=== PATIENT | female | born 1940 | race Caucasian/White ===

== ENCOUNTER → 2018-03-25 13:02 | Outpatient (REF) | payer MEDICARE, SELFPAY | LOC: LAB 13:02 | PROVIDERS: PCP Family Medicine; Visit Provider Internal Medicine | DX: L08.9 Local infection of the skin and subcutaneous tissue, unspecified (principal) | CPT/HCPCS: 87070; 87075; 87077; 87205 ==

== ENCOUNTER → 2018-04-04 11:15 | Outpatient (CLI) | payer MEDICARE, SELFPAY | PROVIDERS: PCP Family Medicine; Visit Provider Internal Medicine | DX: L97.322 Non-pressure chronic ulcer of left ankle with fat layer exposed (principal); T81.31XD Disruption of external operation (surgical) wound, not elsewhere classified, subsequent encounter | CPT/HCPCS: 11042; 97607 ==

== ENCOUNTER → 2018-04-08 09:22 | Outpatient (CLI) | payer MEDICARE, SELFPAY | PROVIDERS: PCP Family Medicine; Visit Provider Internal Medicine | DX: T81.31XA Disruption of external operation (surgical) wound, not elsewhere classified, initial encounter (principal); L97.322 Non-pressure chronic ulcer of left ankle with fat layer exposed | CPT/HCPCS: 11042; 97607 ==

== ENCOUNTER → 2018-04-10 08:48 | Outpatient (CLI) | payer MEDICARE, SELFPAY | PROVIDERS: PCP Family Medicine; Visit Provider Orthopaedic Surgery Foot and Ankle Surgery | DX: R79.89 Other specified abnormal findings of blood chemistry (principal) | CPT/HCPCS: 36415; 82306 ==

== ENCOUNTER → 2018-04-11 13:36 | Outpatient (CLI) | payer MEDICARE, SELFPAY | PROVIDERS: PCP Family Medicine; Visit Provider Internal Medicine | DX: T81.31XA Disruption of external operation (surgical) wound, not elsewhere classified, initial encounter (principal); L97.322 Non-pressure chronic ulcer of left ankle with fat layer exposed | CPT/HCPCS: 11042; 97607 ==

== ENCOUNTER → 2018-04-15 08:32 | Outpatient (CLI) | payer MEDICARE, SELFPAY | PROVIDERS: PCP Family Medicine; Visit Provider Internal Medicine | DX: L97.322 Non-pressure chronic ulcer of left ankle with fat layer exposed (principal); T81.31XD Disruption of external operation (surgical) wound, not elsewhere classified, subsequent encounter; M25.572 Pain in left ankle and joints of left foot | CPT/HCPCS: 99213 ==

== ENCOUNTER → 2018-04-15 13:45 | Outpatient (REF) | payer MEDICARE, SELFPAY | LOC: LAB 13:45 | PROVIDERS: PCP Family Medicine; Visit Provider Internal Medicine | DX: L08.9 Local infection of the skin and subcutaneous tissue, unspecified (principal) | CPT/HCPCS: 87070; 87075; 87077; 87186; 87205 ==

== ENCOUNTER → 2018-04-18 13:05 | Outpatient (CLI) | payer MEDICARE, SELFPAY | PROVIDERS: PCP Family Medicine; Visit Provider Internal Medicine | DX: T81.31XA Disruption of external operation (surgical) wound, not elsewhere classified, initial encounter (principal); L97.322 Non-pressure chronic ulcer of left ankle with fat layer exposed; M25.572 Pain in left ankle and joints of left foot; B95.2 Enterococcus as the cause of diseases classified elsewhere | CPT/HCPCS: 11042 ==

== ENCOUNTER → 2018-04-22 08:28 | Outpatient (CLI) | payer MEDICARE, SELFPAY | PROVIDERS: PCP Family Medicine; Visit Provider Internal Medicine | DX: L97.322 Non-pressure chronic ulcer of left ankle with fat layer exposed (principal); T81.31XA Disruption of external operation (surgical) wound, not elsewhere classified, initial encounter; N18.6 End stage renal disease; B95.2 Enterococcus as the cause of diseases classified elsewhere | CPT/HCPCS: 11042; 97607 ==

== ENCOUNTER → 2018-04-22 09:26 | Outpatient (CLI) | payer MEDICARE, SELFPAY ==
[2018-04-22 11:38] LABS: Cholesterol 177 mg/dL (140-199); HDL Cholesterol 77 mg/dL (40-60); LDL Cholesterol Calculated 73 mg/dL (<100); Triglycerides 135 mg/dL (35-150)
[2018-04-22 12:06] LABS: Thyroid Stimulating Hormone 1.46 uIU/mL (0.47-4.68)
== END ==
PROVIDERS: PCP Family Medicine; Visit Provider Family Medicine
DX: N18.5 Chronic kidney disease, stage 5 (principal)
CPT/HCPCS: 36415; 80061; 84443

== ENCOUNTER → 2018-04-25 15:08 | Outpatient (CLI) | payer MEDICARE, SELFPAY | PROVIDERS: PCP Family Medicine; Visit Provider Internal Medicine | DX: T81.31XA Disruption of external operation (surgical) wound, not elsewhere classified, initial encounter (principal); L97.322 Non-pressure chronic ulcer of left ankle with fat layer exposed; B95.2 Enterococcus as the cause of diseases classified elsewhere; N18.6 End stage renal disease | CPT/HCPCS: 11042; 97607 ==

== ENCOUNTER → 2018-04-29 08:39 | Outpatient (CLI) | payer MEDICARE, SELFPAY ==
--- NOTE | 2018-04-29 | OV.WND_ITS ---
Progress Note Details Patient Name: Kristine Damon Patient Number: [id number] PatientPatientDate: 04/29/2018 Clinician: Erlinda Malave Clinician Cosigner: Cyn Gong Physician / Glass Setter: Isidoro Sifuentes SUBJECTIVE Chief Complaint This information was obtained from the patient Wound to left lateral ankle. Allergies penicillin, prednisone, cephalexin, codeine, acetaminophen, hydrocodone, ketorolac HPI This information was obtained from the patient 04/29/18. Seen by Dr. Sifuentes. The patient reports improvement in the left foot pain over the past week and does not report increased drainage or other acute issues regarding the left lateral malleolus surgical wound that's being treated with negative pressure wound therapy. She's also now had 2 doses of IV vancomycin during dialysis this week that's treating the recent Enterococcus positive wound culture. 04/25/18. Seen by Dr. Sifuentes. The patient reports improvement in terms of pain associated with the chronic left lateral malleolus surgical wound since starting on IV vancomycin for the recently Enterococcus positive wound culture. She does not report adverse side effects and is receiving her antibiotics during dialysis. 04/22/18. Seen by Dr. Sifuentes. The patient reports some continued pain associated with the chronic left lateral malleolus surgical wound and she's been applying topical gentamicin to treat the recent Enterococcus positive wound culture. Her wound vac was discontinued last week also. Of note. she takes citalopram which complicates treating her wound infection with oral antibiotics and is also on dialysis for end stage renal disease and has received IV vancomycin without difficulty for her previous Enterococcus wound infections. 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 04/18/18. Seen by Dr. Sifuentes. The patient reports decreased pain associated with the chronic left lateral malleolus surgical wound over the past week since we held her wound vac. Her culture grew Enterococcus and she's not currently on antibiotics for this. Of note, her wound healing is complicated considerably by her end stage renal disease and being on dialysis and the wound is a result of deep bone debridement that was performed for chronic osteomyelitis of the malleolus. 04/15/18. Seen by Dr. Sifuentes. The patient continues to report persistent pain associated with the chronic left lateral malleolus surgical wound however she does not report increased drainage and has tolerated NPWT with the SNAP wound vac without difficulty. She' s now been off of antibiotics for the past month and underwent surgical bone debridement for chronic osteomyeylitis of the malleolus in late January. 04/11/18. Seen by Dr. Sifuentes. The patient does not report any new acute issues regarding her chronic left lateral malleolus surgical wound and she's tolerating NPWT with the SNAP wound vac without difficulty. 04/08/18. Seen by Dr. Sifuentes. The patient does not report any new acute issues regarding her chronic left lateral malleolus surgical wound and she's tolerating NPWT with the SNAP wound vac without difficulty. 04/04/18. Seen by Dr. Sifuentes. The patient continues to report pain associated with the chronic left lateral malleolus surgical wound despite the fact we discontinued NPWT at her last visit. Her wound culture grew only yeast and Diptheroids. 04/01/2018. Seen by Dr. Sifuentes. The patient continues to report pain associated with the chronic left lateral malleolus surgical wound. She does not report significant drainage from the site and has tolerated negative pressure wound therapy. She is not currently on antibiotics and has no other acute complaints today. 03/28/18. Seen by Dr. Sifuentes. The patient does not report significant pain nor drainage associated chronic left lateral malleolus surgical wound since her last visit and she's tolerating NPWT with the SNAP wound vac without difficulty. 03/25/18. Seen by Dr. Sifuentes. The patient continues to report pain throughout the midfoot and dorsum of the left foot that limits her ability to walk to only a couple of minutes at a time. She does not report any changes regarding the left lateral ankle surgical wound and is tolerating negative pressure wound therapy without difficulty. She's also not currently on oral antibiotics. 03/18/18. Seen by Dr. Sifuentes. The patient reports intermittent pain associated with the left lateral ankle however shoes are report increased drainage from the lateral malleolus surgical wound since her last visit. She is also tolerating negative pressure wound therapy without difficulty. 03/11/18. Seen by Dr Sifuentes.The patient reports some intermittent pain in the left lateral ankle when bearing weight but does not report significant drainage associated with the left lateral malleolus surgical wound since her last visit. She was changed from ciprofloxacin to doxycycline based on the recent culture growing a resistant coag negative staph organism. She does not report adverse side effects, fevers, or other acute issues today. 03/04/18. Seen by Dr. Sifuentes. The patient does not report significant pain nor drainage associated chronic left lateral malleolus surgical wound since her last visit. She continues on ciprofloxacin for chronic osteomyelitis also without reported adverse side effects. 02/25/18. Seen by Dr. Sifuentes. 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 She saw Dr. John last week and will start to use a bone stimulator to help heal the pathologic fracture. She does not report significant drainage associated with the left lateral malleolus surgical wound. 02/18/18. Seen by Dr. Sifuentes. The patient reports ongoing, but decreasing, pain associated with the left lateral malleolus surgical wound and she continues on ciprofloxacin and Flagy for chronic osteomyelitis without reporting adverse side effects. She'll see her surgeon, Dr. John, this . 02/14/18. Seen by Dr. Sifuentes. The patient reports decreased pain associated with the left lateral malleolus surgical wound and staff report only a moderate amount of drainage on the ROMEL wound vac dressing. She continues on cipro and Flagyl for chronic osteomyelitis and does not report adverse side effects or feeling unwell in general. 02/11/18. Seen by Dr. Sifuentes. The patient continues to report some persistent pain associated with the chronic left lateral malleolus surgical wound since her last visit. She does not report increased drainage however and is scheduled to see Dr. John, her orthopedic surgeon, next Saturday. She continues on ciprofloxacin and Flagyl as well and her surgery was a deep bone debridement to address the chronic osteomyelitis of the malleolus. 02/07/18. Seen by Dr. Sifuentes. 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 John. She reports some persistent discomfort at the wound site and is now on ciprofloxacin and Flagyl. Culture results of the execised bone are not yet available and the patient does not report any adverse side effects from the antibiotics, fevers, nor feeling unwell. 11/27/17. Seen by Dr. Sifuentes. The patient does not report pain associated with the chronic left lateral malleolus ulcer however she does describe diffuse pain throughout the lateral aspect of the foot and heel. She states this has been present for 6 weeks however has not raised the issue at our clinic until last week. She was seen by her primary care provider who subsequently ordered an MRI that revealed a nondisplaced fracture of the calcaneus. The MRI did mention also that the chronic osteomyelitis of the lateral malleolus appears to have improved from the previous imaging. 11/06/17. Seen by Dr. Sifuentes. The patient does not report significant pain or drainage associated with the chronic left lateral malleolar nonpressure ulcers since her last visit. She stop using a dressing due to pain and feels this has resolved in the interim. She's also asked that I look at a finger on her right hand that's been slow to heal since her dog scratched her a few weeks ago. She does not report pain at the site but states it's been draining a bit. 10/23/17. Seen by Dr. Sifuentes. The patient reports some persistent and modest pain associated with chronic left lateral malleolar nonpressure ulcer since her last visit. Does not report increased drainage and has been applying topical gentamicin to treat the recurrent cognitive staph wound infection. 10/02/17. The patient reports some intermittent pain associated with chronic left lateral malleolar nonpressure ulcer since her last visit however does not report increased drainage. 09/10/17. Seen by Shon Barlow PA-C. The patient reports no increase in drainage from her left lateral malleolar ulcer. She continues to abstain from smoking. 08/20/17. Seen by Dr. Sifuentes. The patient does not report significant pain or drainage associated with the chronic left lateral malleolar nonpressure ulcers since her last visit. She applying OTC topical antibiotic as prescribed to treat a recurrent wound infection noted at her last visit. 08/06/17. Seen by Dr. Sifuentes. The patient does not report significant pain or drainage associated with the chronic left lateral malleolar nonpressure ulcers since her last visit. 07/16/17. Seen by Dr. Sifuentes. The patient does not report pain or significant drainage associated with the chronic left lateral malleolar nonpressure ulcers since her last visit. 07/09/17. Seen by Dr. Sifuentes. The patient reports some intermittent pain associated with chronic left lateral malleolar nonpressure ulcer since her last visit however does not report increased drainage. 06/27/17. Seen by Dr. Sifuentes. The patient does not report pain or significant drainage associated with the chronic left lateral malleolar ulcer since her last visit. She feels her previously reported symptoms have improved since starting on levofloxacin for the polymicrobial wound culture following her last visit. 06/20/17. Seen by Dr. Sifuentes. The patient reports some burning associated with the left lateral chronic malleoli are not pressure ulcer. Her wound culture grew stenotrophomonas , enterococcus, and a coag-negative staph. She started on levofloxacin for this to be taken around her dialysis schedule. She does not report fevers or feeling unwell. 06/13/17. Seen by Shon Barlow PA-C. The patient reports that the steri-strips that were used to reduce wound tension were painful and she removed them. Her ulcer at that time grew E.coli which she has finished her antibiotic treatment for. 05/30/17. Seen by Dr. Sifuentes. The patient reports increased pain and drainage associated with the chronic left lateral malleolar ulcer over the past few days. She continues on dialysis and is scheduled to have cataract surgery later this week. She does not report fevers or feeling unwell and is not currently on antibiotics. 04/18/17. Seen by Dr. Sifuentes. The patient does not report pain or significant drainage the chronic left lateral malleolar ulcer over the past week. 03/28/17. Seen by Dr. Sifuentes. The patient does not report significant drainage or pain associated with the chronic left lateral malleolar non-pressure ulcer since her last visit. 03/07/17. Seen by Dr. Sifuentes. The patient does not report significant drainage or pain associated with the chronic left lateral malleolar non-pressure ulcer since her last visit. 02/14/17. Seen by Dr. Sifuentes. The patient feels the drainage from the chronic left lateral malleolar non-pressure ulcer noted at the last visit has decreased. Her wound culture grew Enterococcus and Enterobacter species however she did not tolerate her ciprofloxacin due to GI upset and stopped taking it after the few couple of doses. 02/05/17. Seen by Dr. Sifuentes. The patient does not report increased pain or drainage associated with chronic left lateral malleolar nonpressure ulcers since her last visit. 01/10/17. Seen by Dr. Sifuentes. The patient reports no increase in pain or significant drainage associated with the chronic left lateral malleolar nonpressure ulcer since her last visit. 12/20/16. Seen by Dr. Sifuentes. The patient does not report drainage associated with the chronic left lateral malleolus ulcer since her last visit. 11/29/16. Seen by Dr. Sifuentes. The patient does not report significant drainage associated with the chronic left lateral malleolus ulcer since her last visit. 11/08/16. Seen by Dr. Sifuentes. The patient does not report pain or significant drainage associated with the chronic left lateral malleolus ulcer since her last visit. 10/18/16 Seen by Shon Barlow PA-C. The patient does not report any change in pain or drainage from her chronic left lateral malleolar ulcer since her last evaluation. 10/04/16. Seen by Dr. Sifuentes. The patient does not report pain or significant drainage associated with the chronic left lateral malleolus ulcer. She continues to apply gentamicin cream at each dressing change due to chronic and recurring infections at the ulcer site. 09/27/16. Seen by Dr. Sifuentes.The patient does not report significant drainage or pain associated with chronic left lateral malleolus on pressure ulcer since her last visit. She continues to apply topical gentamicin ointment for the chronic wound infection. 09/13/16. Seen by Dr. Sifuentes. The patient reports scant drainage and no pain associated with the chronic left lateral malleolar non-pressure ulcer and she's applying topical gentamicin daily to treat the recent polymicrobial wound infection as recommended. 09/04/16 Seen by Shon Barlow PA-C. The patient reports minimal drainage and she is attempting to offload the ulcer area when she sleeps using a Christmas-saver ankle protector. 08/30/16. Seen by Dr. Sifuentes. The patient reports increased pain and drainage associated with the chronic left lateral malleolr non-pressure ulcer over the past week but she does not report fevers or feeling unwell. Her wound culture from the last visit grew Enterobacter, E. coli, and a coag negative Staph and she started taking Bactrim and applying topical gentamicin yesterday. She's on a 1/2 dose of Bactrim due to her end stage renal disease. 08/23/16. Seen by Dr. Sifuentes. The patient reports some increased drainage on her dressing covering the chronic left lateral malleolar non-pressure ulcer. She does no report pain however nor fevers or feeling unwell. 08/09/16. Seen by Dr. Sifuentes. The patient does not report drainage or pain associated with the chronic left lateral malleolar ulcer. 07/26/16. Seen by Dr. Sifuentes. The patient does not report drainage or pain associated with the chronic left lateral malleolar ulcer since her last visit. 07/11/16. Seen by Dr. Sifuentes. The patient does not report drainage or pain associated with the chronic left lateral malleolar ulcer since her visit last week. 06/21/16 Seen by Shon Barlow PA-C. The patient reports no change in drainage from her left lateral malleolus ulcer. 06/14/16. Seen by Dr. Sifuentes. The patient reportedly minimal drainage associated with the chronic left lateral malleolus ulcer since her last visit. Her arterial Doppler of the left leg was remarkable. 06/07/16. Seen by Dr. Sifuentes. The patient does not report pain or drainage associated with the chronic left lateral malleolar ulcer over the past week. 05/31/16. Seen by Dr. Sifuentes. The patient does not report pain or drainage associated with chronic left lateral malleolus nonpressure ulcer over the past week. Of note, her wound culture from the last visit grew a resistant coag negative Staph. She's not currently taking antibiotics. 05/24/[address] Sifuentes. The patient does not report increased pain or drainage associated with the chronic left lateral malleolar non-pressure ulcer over the past week. 05/17/[address] Sifuentes. The patient does not report pain associated with the chronic left lateral malleolar non-pressure ulcer over the past week and there's only a scant amount of drainage on her dressing today. 05/10/[address] Sifuentes. The patient does not report pain or drainage associated with the chronic left lateral malleolar ulcer or associated underlying malleolar chronic osteomyelitis over the past week. Of note, she had another Epifix skin substitute placed last week. 05/03/[address] Sifuentes. The patient does not report pain or drainage associated with the left lateral malleolar non-pressure ulcer over the past week and she's tolerating HBOT, which is treating associated underlying chronic osteomyelitis, without reporting any issues. 04/26/16 Seen by Shon Barlow PA-C. The patient reports no noted change in her chronic left lateral malleolar ulcer since her last evaluation. 04/19/[address] Sifuentes. The patient does not report pain or drainage associated with the chronic left lateral malleolar non-pressure ulcer nor underlying chronic osteomyelitis. She continues with HBOT but has completed an 8 week course of IV vancomycin. 04/12/[address] Sifuentes. The patient does not report drainage or pain associated with her chronic left lateral malleolar ulcer and underlying chronic osteomyelitis. She' s received 3 placements of Epifix recently and continues with HBOT in addition to an extended course of IV vancomycin. Her wound culture from 04/05/16 showed no organisms and had no growth. 04/05/[address] Sifuentes. The patient does not report pain or drainage from her chronic left lateral malleolar non-pressure ulcer and she continues on IV vancomycin for chronic osteomyelitis of the underlying malleolus. 03/29/[address] Sifuentes. The patient does not report pain or drainage associated with her chronic left lateral malleolar non-pressure ulcer and she continues on IV vancomycin and hyperbaric therapy for underlying chronic osteomyelitis of the malleolus. 03/22/[address] Sifuentes. The patient does not report pain or drainage associated with the chronic left lateral malleolar non-pressure ulcer. 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 She also states she's no longer smoking. 03/06/16 Seen by Shon Barlow PA-C. The patient is changing her dressing daily, as instructed but now reports decreased drainage from her ulcer. 03/01/[address] Sifuentes. The patient does not report pain or significant drainage associated with her chronic left lateral malleolar ulcer and she continues on IV vancomycin and hyperbaric oxygen therapy for underlying chronic osteomyelitis of the lateral malleolus. 02/14/16 Seen by Shon Barlow PA-C. The patient feels her left malleolar ulcer with underlying chronic osteomyelitis may be larger and has been draining more since her last evaluation. She continues on doxycycline and her ulcer culture grew a staph Spp. and E Faecalis both of which were highly resistant. She reports that she is only smoking a few cigarettes per day. Her dialysis continues at 2 times weekly. Her COPD is stable on current medications with no recent exacerbations. 02/08/[address] Sifuentes. The patient does not report pain associated with the chronic left lateral malleolar non-pressure ulcer however the staff report brown drainage on her dressing today. She continues on doxycycline for a recent polymicrobial resistant Staph culture and her recent bone scan on 01/26/16 show's persistent left lateral malleolar osteomyelitis while reporting interval improvement from her previous scan on 09/29/15. She does not report fevers or feeling unwell and she also reports that she's significantly reduced her smoking over the past week. 01/26/[address] Sifuentes. The patient does not report pain associated with the chronic left lateral malleolar non-pressure ulcer nor does she report any problems with the wound vac. She continues on doxycycline without reporting adverse side effects and her bone scan shows persistence of osteomyelitis beneath the ulcer with interval improvement from that of 09/29/16. 01/19/[address] Sifuentes. The patient does not report pain associated with the chronic left lateral malleolar non-pressure ulcer nor any problems with the wound vac. She continues on doxycycline also for a resistant coag neg Staph culture and does not report adverse side effects. 01/12/[address] Sifuentes. The patient does not report pain or significant drainage associated with the chronic left lateral malleolar ulcer. She also is now on doxycycline for a resistant coag neg Staph culture from 12/28/15 and does not report adverse effects. 01/04/[address] Sifuentes. The patient reports some increased pain just proximal to the chronic left lateral malleolar non-pressure ulcer. She's currently using only topical gentamicin to treat an intermediately resistant coag negative Staph culture from the ulcer. 12/28/[address] Sifuentes. The patient does not report drainage and reports only minimal pain associated with the chronic left lateral malleolar ulcer. Her wound culture grew only resistant Staph epi. 12/21/[address] Sifuentes. The patient does not report pain or drainage associated with the chronic left lateral malleolar ulcer and she's continues off of antibiotics. 12/07/2015 Seen by Shon Barlow PA-C. The patient's moxifloxacin has now finished and she does not report any change in left ankle pain or drainage. 11/30/2015 Seen by Shon Barlow PA-C. The patient's moxifloxacin prescription continues for 1 more week. She is currently not undergoing adjunctive hyperbaric oxygen treatments. She reports no change in ulcer pain. 11/25/[address] Sifuentes. The patient does not report any new issues regarding her chronic left lateral malleolar non-pressure ulcer however the staff report some moderate maceration. 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 11/15/15 Seen by Shon Barlow PA-C. The patient will complete her last Vancomycin infusion tomorrow and will then discontinue this antibiotic and discontinue 3x weekly dialysis and resume twice weekly dialysis. Her ulcer, overlying chronic osteomyelitis has been draining minimally and has not been reportedly painful since her last evaluation. She is now weaned off of citalopram (which had interactions with Moxifloxacin, which we originally wanted to prescribe) and she reports no depression symptoms. 11/08/15 Seen by Shon Barlow PA-C. The patient does not report increased pain or drainage from her ulcer with underlying osteomyelitis. She continues on Vancomycin. 11/03/[address] Sifuentes. The patient does not report pain and only scant drainage from the chronic left lateral malleolar ulcer and underlying chronic osteomyelitis. She's on day 24 of IV vancomycin for the Enterococcus positive wound culture and HBOT for chronic osteomyelitis. 10/27/[address] Sifuentes. The patient reports minimal discomfort and scant drainage from the left lateral malleolar ulcer and underlying chronic osteomyelitis. She continues on IV vancomycin for this problem as well as HBOT without reporting problems. 10/19/15 Seen by Shon Barlow PA-C. The patient reports a stable appearance of her ulcer. She is going to begin 3x weekly dialysis due to the administration of Vancomycin. When she completes her Vancomycin course she will resume twice weekly dialysis. 10/12/[address] Sifuentes. The patient states she's had 5 episodes of diarrhea this morning and complains of some mild left sided abdominal pain. She's been started on IV vancomycin for the left lateral malleolar ulcer cultured for Enterococcus and is under the care of her electro mechanic, Dr. Lorenzana, regarding dosing around her dialysis. She does not report drainage nor significant discomfort associated with ulcer nor underlying chronic osteomyelitis of the malleolus and continues with HBOT as adjuvant therapy without reporting problems. 10/06/[address] Sifuentes. The patient continues to report some discomfort regarding her left lateral malleolar ulcer and underlying chronic osteomyelitis. She's seen Dr. Silva, her PCP, whose started a taper of her Celexa over the next 6 weeks due to a potentially serious interaction with fluorquinolone antibiotics which could eventually be useful in treating the Enterococcus faecalis positive wound culture from 09/28/15. She does not report fever or other acute issues currently and has been off of antibiotics for the past week due to the limited options based on sensitivities. She's continued HBOT over this period while we' ve attempted to find an appropriate antibiotic solution. Of note, her bone scan from 09/29/15 confirms persistence of chronic osteomyelitis also. 09/14/15 Seen by Shon Barlow PA-C. The patient reports no difficulty with her doxycycline or HBOT treatments. Her ankle ulcer continues to drain and she has not observed much change. 09/07/[address] Sifuentes. The patient does not report significant pain or drainage associated with her left lateral malleolar ulcer and she continues on doxycycline for associated chronic osteomyelitis without reporting adverse side effects. She's also tolerating HBOT without reporting any problems. 08/24/[address] Sifuentes. The patient reports increased pain and redness in the periwound area of the left lateral malleolar ulcer that overlies the site of chronic osteomyelitis. She does not report fever, chills, sweats, or increased drainage. Her wound culture at the last visit was unremarkable despite being off of antibiotics. She's been approved for HBOT and currently does not report acute URI symptoms but states she has some chronic sinus congestion. Of note, her CXR was consistent with COPD. 08/17/[address] Sifuentes. The patient states her left lateral malleous is more tender than last week with some radiation of pain to the mid foot. She does not report increased 08/04/[address] Sifuentes. The patient attend the ER following our last visit and was sent to [facility] due to acute on chronic renal failure. She'd apparently become dehydrated due to nausea and vomiting and was dx with a small bowel obstruction. Of note, I'd contacted her to discontinue Bactrim, which she'd been on for about a month for left lateral malleolar osteomyelitis, due to her Cr increasing. This has since returned to it's baseline and she's currently not on antibiotics. She does not report increased pain, swelling or drainage associated with the overlying ulcer. She's also to complete the 2nd phase of her bone scan checking for persistence of osteomyelitis later today. 07/28/[address] Sifuentes. The patient does not report drainage or pain associated with the left lateral malleolar ulcer. She continues on an extended course of Bactrim for possible osteomyelitis which is concerning based on her history of chronic kidney disease requiring dialysis. She notes she still produces adequate urine but has not had her renal function checked since 07/05/15 when her Cr was 2.7. 07/20/[address] Sifuentes. The patient does not report any new issues such as pain or increased drainage from the left lateral malleolar ulcer. She continues on Bactrim for possible chronic osteomyelitis of the lateral malleolus. 07/13/[address] Sifuentes. The patient's new to our clinic and has been referred by Dr. Silva for a non-healing surgical wound following excision of a skin cancer ( type unconfirmed) at the left lateral malleolus. This was reportedly performed about 2 months ago and she's been on an extended course of Bactrim for the past month with some resolution in drainage and surrounding erythema. She has an MRI and bone scan of the site from the end of April that both raise suspicion for osteomyelities however. Otherwise her medical history is complicated by chronic renal failure requiring dialysis and a long history of smoking. She does not have a history of diabetes nor does she report rest pain, claudication, fever, sweats, or pain at the ulcer site. Past Medical History This information was obtained from the patient Patient has a medical history of: Depression Carpal tunnel Chronic renal Stage V (Cr 2.7 on 07/05/15; dialysis M, F) Unilateral nephrectomy Allergic rhinitis Hypertension Insomnia Lumbago Osteoporosis Peptic Ulcer Small bowel obstruction (recurrent) Chronic osteomyelitis (left lateral malleolus; dx on MRI and bone scan April 2015 ; reconfirmed on repeat bone scan 07/28/15; persistent but improved on 01/26/16 bone scan) COPD Chronic ulcer (left lateral malleolus) Complaints and Symptoms This information was obtained from the patient Patient complains of: General Notes: I have reviewed and concur with the Review of Systems and Past Family Social History documents completed by the clinician, I have reviewed and concur with the Wound Assessment document completed by the clinician Ear/Nose/Mouth/Throat: Hearing Loss / Aid Integumentary (Hair/Skin/Nails): Open Sore Prior Wound History: Drainage, Erythema, Pain Patient denies complaints or symptoms related to: Cardiovascular (Central/Peripheral): Intermittent Claudication, Lower extremity (leg) resting pain, Lower extremity (leg) swelling Constitutional Symptoms (General Health): Chills, Fever Gastrointestinal (GI): Nausea / Vomiting, Stomach/abdominal pain Hematologic/Lymphatic: Bleeding / Clotting Disorders, Bleeding Tendency Musculoskeletal: Deformities, Joint Swelling Neurological: Abnormal Gait, Loss of Protective Sensation Prior Wound History: Bleeding, Malodor Psychiatric: Memory Loss Respiratory: Oxygen Use, Shortness of Breath OBJECTIVE Constitutional Vital signs reviewed and noted. Well developed. Alert. Clean appearing.. Height/ Length: 60 in (152.4 cm), Weight: 97.7 lbs (44.41 kgs), BMI: 19.1, Temperature: 98.3 ?F ( 36.83 ?C), Pulse: 58 bpm, Respiratory Rate: 16 breaths/min, Blood Pressure: 124/63 mmHg, Pulse Oximetry: 98 %. Ears, Nose, Mouth, and Throat: Mild hearing deficit. Respiratory: No respiratory distress. Even respirations and without use of accessory muscles.. Cardiovascular: Affected extremity exhibits no peripheral edema or cyanosis, is warm, and is well perfused. Capillary refill is less than 2 seconds. Integumentary (Hair, Skin) No periwound erythema, warmth, or significant drainage. No periwound rashes appreciated or noted otherwise.. Refer to appropriate clinician wound documentation for this visit; left lateral malleolus wound extends to deep subcut with base partially covered with pink granulation, remainder fibrin and slough; smaller than on previous review. Wound #2 Left, Lateral Ankle is an acute Full Thickness Surgical Wound and has received a status of Not Healed. Subsequent wound encounter measurements are 0.4cm length x 0.2cm width x 0.2cm depth, with an area of 0.08 sq cm and a volume of 0.016 cubic cm. No tunneling has been noted. No sinus tract has been noted. No undermining has been noted. There is a moderate amount of serous drainage noted which has no odor. The patient reports a wound pain of level 5/10. The wound margin is attached. Wound bed has Yes epithelialization, No eschar, Yes slough, Yes pink, firm granulation. The periwound skin moisture is normal. The periwound skin color is normal. The periwound skin exhibited: Edema. The periwound skin did not exhibit: Brawny Induration, Excoriation, Induration, Callus, Crepitus, Fluctuance, Friable, Rash. The temperature of the periwound skin is WNL. Periwound skin does not exhibit signs or symptoms of infection. Local Pulse is Palpable. Neurological: Cranial nerves grossly intact with symmetric function normal by informal observation.. ASSESSMENT Active Problems ICD-10 (Encounter Diagnosis) L97.322 - Non-pressure chronic ulcer of left ankle with fat layer exposed (Encounter Diagnosis) T81.31XD - Disruption of external operation (surgical) wound, not elsewhere classified, subsequent encounter (Encounter Diagnosis) B95.2 - Enterococcus as the cause of diseases classified elsewhere (Encounter Diagnosis) N18.6 - End stage renal disease PROCEDURES Wound #2 Wound #2 (Surgical Wound) is located on the left, lateral ankle. A skin/ subcutaneous tissue level surgical debridement with a total area debrided of 0.08 sq cm was performed by Isidoro Sifuentes MD. Subcutaneous was removed along with devitalized tissue: slough. The following instrument(s) were used: curette. No anesthetic was required due to loss of sensation. A time out was conducted prior to the start of the procedure. A minimal amount of bleeding was controlled with pressure. The procedure was tolerated well with a pain level of 0 throughout and a pain level of 0 following the procedure. Post Debridement Measurements: 0.4cm length x 0.2cm width x 0.3cm depth; with an area of 0.08 sq cm and a volume of 0.024 cubic cm; Wound #2 (Surgical Wound) is located on the left, lateral ankle. A Disposable Wound Vac Application < 50 Sq Cm procedure was performed for the lower left extremity by Isidoro Sifuentes MD. A time out was conducted prior to the start of the procedure. The procedure was tolerated well. General Notes: SNAP 125mmHg applied. PLAN Wound Orders: Wound #2 Left, Lateral Ankle Anesthetic Topical Xylocaine to wound bed. - In clinic only. Cleanser Cleanse Wound: - Normal saline and gauze. May Shower. - Cover with cast protector. Dressings Change Dressing: - At next visit. SNAP Dressing - SNAP 125 Please observe to make sure the snap is not in the red. Additional Orders: Follow-Up Appointments Return Appointment: - - Saturday for SNAP. Other information: If you develop fever, chills, increased pain, drainage, redness or swelling please call our office. If after hours, respond to the ER. Should you experience any significant changes in your wound(s) or have any questions regarding your home care instructions please contact the wound center @ [phone]. If after hours, contact your primary care physician or go to the hospital emergency room. Scribing Attestation I attest, as the nurse, that I scribed these orders for the physician. I've reviewed the clinician's documentation and agree with the evaluation and plan as written. In addition, the patient's ulcer demonstrates evidence of non-viable devitalized tissue which will continue to benefit from sharp debridement to help promote granulation and expedite healing. Negative pressure wound therapy will be utilized to facilitate granulation and removal of exudate and infectious material with the goal of expediting wound healing. Also, we'll continue treating with IV vancomycin for a total of 2 weeks then consider holding antibiotics and monitoring for recurrence of infection. Electronic Signature(s) Signed By: Date: Isidoro Sifuentes MD 04/29/2018 14:23:23 Entered By: Isidoro Sifuentes on 04/29/2018 14:22:17
== END ==
PROVIDERS: PCP Family Medicine; Visit Provider Internal Medicine
DX: T81.31XA Disruption of external operation (surgical) wound, not elsewhere classified, initial encounter (principal); L97.322 Non-pressure chronic ulcer of left ankle with fat layer exposed; B95.2 Enterococcus as the cause of diseases classified elsewhere; N18.6 End stage renal disease
CPT/HCPCS: 11042; 97607

== ENCOUNTER → 2018-05-02 11:26 | Outpatient (CLI) | payer MEDICARE, SELFPAY ==
--- NOTE | 2018-05-02 | OV.WND_ITS ---
Progress Note Details Patient Name: Kristine Damon Patient Number: [id number] PatientPatientDate: 05/02/2018 Clinician: Erlinda Malave Clinician Cosigner: Morelia Ibarra Physician / Assembly Line Machine Operator: Isidoro Sifuentes SUBJECTIVE Chief Complaint This information was obtained from the patient Wound to left lateral ankle. Allergies penicillin, prednisone, cephalexin, codeine, acetaminophen, hydrocodone, ketorolac HPI This information was obtained from the patient 05/02/18. Seen by Dr. Sifuentes. The patient reports improvement in the left foot pain and does not report increased drainage or other acute issues regarding the left lateral malleolus surgical wound that's being treated with negative pressure wound therapy. She's also continues on IV vancomycin during dialysis that's treating the recent Enterococcus positive wound culture. 04/29/18. Seen by Dr. Sifuentes. The patient reports improvement in the left foot pain over the past week and does not report increased drainage or other acute issues regarding the left lateral malleolus surgical wound that's being treated with negative pressure wound therapy. She's also now had 2 doses of IV vancomycin during dialysis this week that's treating the recent Enterococcus positive wound culture. 04/25/18. Seen by Dr. Sifuentes. The patient reports improvement in terms of pain associated with the chronic left lateral malleolus surgical wound since starting on IV vancomycin for the recently Enterococcus positive wound culture. She does not report adverse side effects and is receiving her antibiotics during dialysis. 04/22/18. Seen by Dr. Sifuentes. The patient reports some continued pain associated with the chronic left lateral malleolus surgical wound and she's been applying topical gentamicin to treat the recent Enterococcus positive wound culture. Her wound vac was discontinued last week also. Of note. she takes citalopram which complicates treating her wound infection with oral antibiotics and is also on dialysis for end stage renal disease and has received IV vancomycin without difficulty for her previous Enterococcus wound infections. 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 04/18/18. Seen by Dr. Sifuentes. The patient reports decreased pain associated with the chronic left lateral malleolus surgical wound over the past week since we held her wound vac. Her culture grew Enterococcus and she's not currently on antibiotics for this. Of note, her wound healing is complicated considerably by her end stage renal disease and being on dialysis and the wound is a result of deep bone debridement that was performed for chronic osteomyelitis of the malleolus. 04/15/18. Seen by Dr. Sifuentes. The patient continues to report persistent pain associated with the chronic left lateral malleolus surgical wound however she does not report increased drainage and has tolerated NPWT with the SNAP wound vac without difficulty. She' s now been off of antibiotics for the past month and underwent surgical bone debridement for chronic osteomyeylitis of the malleolus in late January. 04/11/18. Seen by Dr. Sifuentes. The patient does not report any new acute issues regarding her chronic left lateral malleolus surgical wound and she's tolerating NPWT with the SNAP wound vac without difficulty. 04/08/18. Seen by Dr. Sifuentes. The patient does not report any new acute issues regarding her chronic left lateral malleolus surgical wound and she's tolerating NPWT with the SNAP wound vac without difficulty. 04/04/18. Seen by Dr. Sifuentes. The patient continues to report pain associated with the chronic left lateral malleolus surgical wound despite the fact we discontinued NPWT at her last visit. Her wound culture grew only yeast and Diptheroids. 04/01/2018. Seen by Dr. Sifuentes. The patient continues to report pain associated with the chronic left lateral malleolus surgical wound. She does not report significant drainage from the site and has tolerated negative pressure wound therapy. She is not currently on antibiotics and has no other acute complaints today. 03/28/18. Seen by Dr. Sifuentes. The patient does not report significant pain nor drainage associated chronic left lateral malleolus surgical wound since her last visit and she's tolerating NPWT with the SNAP wound vac without difficulty. 03/25/18. Seen by Dr. Sifuentes. The patient continues to report pain throughout the midfoot and dorsum of the left foot that limits her ability to walk to only a couple of minutes at a time. She does not report any changes regarding the left lateral ankle surgical wound and is tolerating negative pressure wound therapy without difficulty. She's also not currently on oral antibiotics. 03/18/18. Seen by Dr. Sifuentes. The patient reports intermittent pain associated with the left lateral ankle however shoes are report increased drainage from the lateral malleolus surgical wound since her last visit. She is also tolerating negative pressure wound therapy without difficulty. 03/11/18. Seen by Dr Sifuentes.The patient reports some intermittent pain in the left lateral ankle when bearing weight but does not report significant drainage associated with the left lateral malleolus surgical wound since her last visit. She was changed from ciprofloxacin to doxycycline based on the recent culture growing a resistant coag negative staph organism. She does not report adverse side effects, fevers, or other acute issues today. 03/04/18. Seen by Dr. Sifuentes. The patient does not report significant pain nor drainage associated chronic left lateral malleolus surgical wound since her last visit. She continues on ciprofloxacin for chronic osteomyelitis also without reported adverse side effects. 02/25/18. Seen by Dr. Sifuentes. 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 She saw Dr. John last week and will start to use a bone stimulator to help heal the pathologic fracture. She does not report significant drainage associated with the left lateral malleolus surgical wound. 02/18/18. Seen by Dr. Sifuentes. The patient reports ongoing, but decreasing, pain associated with the left lateral malleolus surgical wound and she continues on ciprofloxacin and Flagy for chronic osteomyelitis without reporting adverse side effects. She'll see her surgeon, Dr. John, this . 02/14/18. Seen by Dr. Sifuentes. The patient reports decreased pain associated with the left lateral malleolus surgical wound and staff report only a moderate amount of drainage on the ROMEL wound vac dressing. She continues on cipro and Flagyl for chronic osteomyelitis and does not report adverse side effects or feeling unwell in general. 02/11/18. Seen by Dr. Sifuentes. The patient continues to report some persistent pain associated with the chronic left lateral malleolus surgical wound since her last visit. She does not report increased drainage however and is scheduled to see Dr. John, her orthopedic surgeon, next Saturday. She continues on ciprofloxacin and Flagyl as well and her surgery was a deep bone debridement to address the chronic osteomyelitis of the malleolus. 02/07/18. Seen by Dr. Sifuentes. 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 John. She reports some persistent discomfort at the wound site and is now on ciprofloxacin and Flagyl. Culture results of the execised bone are not yet available and the patient does not report any adverse side effects from the antibiotics, fevers, nor feeling unwell. 11/27/17. Seen by Dr. Sifuentes. The patient does not report pain associated with the chronic left lateral malleolus ulcer however she does describe diffuse pain throughout the lateral aspect of the foot and heel. She states this has been present for 6 weeks however has not raised the issue at our clinic until last week. She was seen by her primary care provider who subsequently ordered an MRI that revealed a nondisplaced fracture of the calcaneus. The MRI did mention also that the chronic osteomyelitis of the lateral malleolus appears to have improved from the previous imaging. 11/06/17. Seen by Dr. Sifuentes. The patient does not report significant pain or drainage associated with the chronic left lateral malleolar nonpressure ulcers since her last visit. She stop using a dressing due to pain and feels this has resolved in the interim. She's also asked that I look at a finger on her right hand that's been slow to heal since her dog scratched her a few weeks ago. She does not report pain at the site but states it's been draining a bit. 10/23/17. Seen by Dr. Sifuentes. The patient reports some persistent and modest pain associated with chronic left lateral malleolar nonpressure ulcer since her last visit. Does not report increased drainage and has been applying topical gentamicin to treat the recurrent cognitive staph wound infection. 10/02/17. The patient reports some intermittent pain associated with chronic left lateral malleolar nonpressure ulcer since her last visit however does not report increased drainage. 09/10/17. Seen by Shon Barlow PA-C. The patient reports no increase in drainage from her left lateral malleolar ulcer. She continues to abstain from smoking. 08/20/17. Seen by Dr. Sifuentes. The patient does not report significant pain or drainage associated with the chronic left lateral malleolar nonpressure ulcers since her last visit. She applying OTC topical antibiotic as prescribed to treat a recurrent wound infection noted at her last visit. 08/06/17. Seen by Dr. Sifuentes. The patient does not report significant pain or drainage associated with the chronic left lateral malleolar nonpressure ulcers since her last visit. 07/16/17. Seen by Dr. Sifuentes. The patient does not report pain or significant drainage associated with the chronic left lateral malleolar nonpressure ulcers since her last visit. 07/09/17. Seen by Dr. Sifuentes. The patient reports some intermittent pain associated with chronic left lateral malleolar nonpressure ulcer since her last visit however does not report increased drainage. 06/27/17. Seen by Dr. Sifuentes. The patient does not report pain or significant drainage associated with the chronic left lateral malleolar ulcer since her last visit. She feels her previously reported symptoms have improved since starting on levofloxacin for the polymicrobial wound culture following her last visit. 06/20/17. Seen by Dr. Sifuentes. The patient reports some burning associated with the left lateral chronic malleoli are not pressure ulcer. Her wound culture grew stenotrophomonas , enterococcus, and a coag-negative staph. She started on levofloxacin for this to be taken around her dialysis schedule. She does not report fevers or feeling unwell. 06/13/17. Seen by Shon Barlow PA-C. The patient reports that the steri-strips that were used to reduce wound tension were painful and she removed them. Her ulcer at that time grew E.coli which she has finished her antibiotic treatment for. 05/30/17. Seen by Dr. Sifuentes. The patient reports increased pain and drainage associated with the chronic left lateral malleolar ulcer over the past few days. She continues on dialysis and is scheduled to have cataract surgery later this week. She does not report fevers or feeling unwell and is not currently on antibiotics. 04/18/17. Seen by Dr. Sifuentes. The patient does not report pain or significant drainage the chronic left lateral malleolar ulcer over the past week. 03/28/17. Seen by Dr. Sifuentes. The patient does not report significant drainage or pain associated with the chronic left lateral malleolar non-pressure ulcer since her last visit. 03/07/17. Seen by Dr. Sifuentes. The patient does not report significant drainage or pain associated with the chronic left lateral malleolar non-pressure ulcer since her last visit. 02/14/17. Seen by Dr. Sifuentes. The patient feels the drainage from the chronic left lateral malleolar non-pressure ulcer noted at the last visit has decreased. Her wound culture grew Enterococcus and Enterobacter species however she did not tolerate her ciprofloxacin due to GI upset and stopped taking it after the few couple of doses. 02/05/17. Seen by Dr. Sifuentes. The patient does not report increased pain or drainage associated with chronic left lateral malleolar nonpressure ulcers since her last visit. 01/10/17. Seen by Dr. Sifuentes. The patient reports no increase in pain or significant drainage associated with the chronic left lateral malleolar nonpressure ulcer since her last visit. 12/20/16. Seen by Dr. Sifuentes. The patient does not report drainage associated with the chronic left lateral malleolus ulcer since her last visit. 11/29/16. Seen by Dr. Sifuentes. The patient does not report significant drainage associated with the chronic left lateral malleolus ulcer since her last visit. 11/08/16. Seen by Dr. Sifuentes. The patient does not report pain or significant drainage associated with the chronic left lateral malleolus ulcer since her last visit. 10/18/16 Seen by Shon Barlow PA-C. The patient does not report any change in pain or drainage from her chronic left lateral malleolar ulcer since her last evaluation. 10/04/16. Seen by Dr. Sifuentes. The patient does not report pain or significant drainage associated with the chronic left lateral malleolus ulcer. She continues to apply gentamicin cream at each dressing change due to chronic and recurring infections at the ulcer site. 09/27/16. Seen by Dr. Sifuentes.The patient does not report significant drainage or pain associated with chronic left lateral malleolus on pressure ulcer since her last visit. She continues to apply topical gentamicin ointment for the chronic wound infection. 09/13/16. Seen by Dr. Sifuentes. The patient reports scant drainage and no pain associated with the chronic left lateral malleolar non-pressure ulcer and she's applying topical gentamicin daily to treat the recent polymicrobial wound infection as recommended. 09/04/16 Seen by Shon Barlow PA-C. The patient reports minimal drainage and she is attempting to offload the ulcer area when she sleeps using a [place]-saver ankle protector. 08/30/16. Seen by Dr. Sifuentes. The patient reports increased pain and drainage associated with the chronic left lateral malleolr non-pressure ulcer over the past week but she does not report fevers or feeling unwell. Her wound culture from the last visit grew Enterobacter, E. coli, and a coag negative Staph and she started taking Bactrim and applying topical gentamicin yesterday. She's on a 1/2 dose of Bactrim due to her end stage renal disease. 08/23/16. Seen by Dr. Sifuentes. The patient reports some increased drainage on her dressing covering the chronic left lateral malleolar non-pressure ulcer. She does no report pain however nor fevers or feeling unwell. 08/09/16. Seen by Dr. Sifuentes. The patient does not report drainage or pain associated with the chronic left lateral malleolar ulcer. 07/26/16. Seen by Dr. Sifuentes. The patient does not report drainage or pain associated with the chronic left lateral malleolar ulcer since her last visit. 07/11/16. Seen by Dr. Sifuentes. The patient does not report drainage or pain associated with the chronic left lateral malleolar ulcer since her visit last week. 06/21/16 Seen by Shon Barlow PA-C. The patient reports no change in drainage from her left lateral malleolus ulcer. 06/14/16. Seen by Dr. Sifuentes. The patient reportedly minimal drainage associated with the chronic left lateral malleolus ulcer since her last visit. Her arterial Doppler of the left leg was remarkable. 06/07/16. Seen by Dr. Sifuentes. The patient does not report pain or drainage associated with the chronic left lateral malleolar ulcer over the past week. 05/31/16. Seen by Dr. Sifuentes. The patient does not report pain or drainage associated with chronic left lateral malleolus nonpressure ulcer over the past week. Of note, her wound culture from the last visit grew a resistant coag negative Staph. She's not currently taking antibiotics. 05/24/[address] Sifuentes. The patient does not report increased pain or drainage associated with the chronic left lateral malleolar non-pressure ulcer over the past week. 05/17/[address] Sifuentes. The patient does not report pain associated with the chronic left lateral malleolar non-pressure ulcer over the past week and there's only a scant amount of drainage on her dressing today. 05/10/[address] Sifuentes. The patient does not report pain or drainage associated with the chronic left lateral malleolar ulcer or associated underlying malleolar chronic osteomyelitis over the past week. Of note, she had another Epifix skin substitute placed last week. 05/03/[address] Sifuentes. The patient does not report pain or drainage associated with the left lateral malleolar non-pressure ulcer over the past week and she's tolerating HBOT, which is treating associated underlying chronic osteomyelitis, without reporting any issues. 04/26/16 Seen by Shon Barlow PA-C. The patient reports no noted change in her chronic left lateral malleolar ulcer since her last evaluation. 04/19/[address] Sifuentes. The patient does not report pain or drainage associated with the chronic left lateral malleolar non-pressure ulcer nor underlying chronic osteomyelitis. She continues with HBOT but has completed an 8 week course of IV vancomycin. 04/12/[address] Sifuentes. The patient does not report drainage or pain associated with her chronic left lateral malleolar ulcer and underlying chronic osteomyelitis. She' s received 3 placements of Epifix recently and continues with HBOT in addition to an extended course of IV vancomycin. Her wound culture from 04/05/16 showed no organisms and had no growth. 04/05/[address] Sifuentes. The patient does not report pain or drainage from her chronic left lateral malleolar non-pressure ulcer and she continues on IV vancomycin for chronic osteomyelitis of the underlying malleolus. 03/29/[address] Sifuentes. The patient does not report pain or drainage associated with her chronic left lateral malleolar non-pressure ulcer and she continues on IV vancomycin and hyperbaric therapy for underlying chronic osteomyelitis of the malleolus. 03/22/[address] Sifuentes. The patient does not report pain or drainage associated with the chronic left lateral malleolar non-pressure ulcer. 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 She also states she's no longer smoking. 03/06/16 Seen by Shon Barlow PA-C. The patient is changing her dressing daily, as instructed but now reports decreased drainage from her ulcer. 03/01/[address] Sifuentes. The patient does not report pain or significant drainage associated with her chronic left lateral malleolar ulcer and she continues on IV vancomycin and hyperbaric oxygen therapy for underlying chronic osteomyelitis of the lateral malleolus. 02/14/16 Seen by Shon Barlow PA-C. The patient feels her left malleolar ulcer with underlying chronic osteomyelitis may be larger and has been draining more since her last evaluation. She continues on doxycycline and her ulcer culture grew a staph Spp. and E Faecalis both of which were highly resistant. She reports that she is only smoking a few cigarettes per day. Her dialysis continues at 2 times weekly. Her COPD is stable on current medications with no recent exacerbations. 02/08/[address] Sifuentes. The patient does not report pain associated with the chronic left lateral malleolar non-pressure ulcer however the staff report brown drainage on her dressing today. She continues on doxycycline for a recent polymicrobial resistant Staph culture and her recent bone scan on 01/26/16 show's persistent left lateral malleolar osteomyelitis while reporting interval improvement from her previous scan on 09/29/15. She does not report fevers or feeling unwell and she also reports that she's significantly reduced her smoking over the past week. 01/26/[address] Sifuentes. The patient does not report pain associated with the chronic left lateral malleolar non-pressure ulcer nor does she report any problems with the wound vac. She continues on doxycycline without reporting adverse side effects and her bone scan shows persistence of osteomyelitis beneath the ulcer with interval improvement from that of 09/29/16. 01/19/[address] Sifuentes. The patient does not report pain associated with the chronic left lateral malleolar non-pressure ulcer nor any problems with the wound vac. She continues on doxycycline also for a resistant coag neg Staph culture and does not report adverse side effects. 01/12/[address] Sifuentes. The patient does not report pain or significant drainage associated with the chronic left lateral malleolar ulcer. She also is now on doxycycline for a resistant coag neg Staph culture from 12/28/15 and does not report adverse effects. 01/04/[address] Sifuentes. The patient reports some increased pain just proximal to the chronic left lateral malleolar non-pressure ulcer. She's currently using only topical gentamicin to treat an intermediately resistant coag negative Staph culture from the ulcer. 12/28/[address] Sifuentes. The patient does not report drainage and reports only minimal pain associated with the chronic left lateral malleolar ulcer. Her wound culture grew only resistant Staph epi. 12/21/[address] Sifuentes. The patient does not report pain or drainage associated with the chronic left lateral malleolar ulcer and she's continues off of antibiotics. 12/07/2015 Seen by Shon Barlow PA-C. The patient's moxifloxacin has now finished and she does not report any change in left ankle pain or drainage. 11/30/2015 Seen by Shon Barlow PA-C. The patient's moxifloxacin prescription continues for 1 more week. She is currently not undergoing adjunctive hyperbaric oxygen treatments. She reports no change in ulcer pain. 11/25/[address] Sifuentes. The patient does not report any new issues regarding her chronic left lateral malleolar non-pressure ulcer however the staff report some moderate maceration. 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 11/15/15 Seen by Shon Barlow PA-C. The patient will complete her last Vancomycin infusion tomorrow and will then discontinue this antibiotic and discontinue 3x weekly dialysis and resume twice weekly dialysis. Her ulcer, overlying chronic osteomyelitis has been draining minimally and has not been reportedly painful since her last evaluation. She is now weaned off of citalopram (which had interactions with Moxifloxacin, which we originally wanted to prescribe) and she reports no depression symptoms. 11/08/15 Seen by Shon Barlow PA-C. The patient does not report increased pain or drainage from her ulcer with underlying osteomyelitis. She continues on Vancomycin. 11/03/[address] Sifuentes. The patient does not report pain and only scant drainage from the chronic left lateral malleolar ulcer and underlying chronic osteomyelitis. She's on day 24 of IV vancomycin for the Enterococcus positive wound culture and HBOT for chronic osteomyelitis. 10/27/[address] Sifuentes. The patient reports minimal discomfort and scant drainage from the left lateral malleolar ulcer and underlying chronic osteomyelitis. She continues on IV vancomycin for this problem as well as HBOT without reporting problems. 10/19/15 Seen by Shon Barlow PA-C. The patient reports a stable appearance of her ulcer. She is going to begin 3x weekly dialysis due to the administration of Vancomycin. When she completes her Vancomycin course she will resume twice weekly dialysis. 10/12/[address] Sifuentes. The patient states she's had 5 episodes of diarrhea this morning and complains of some mild left sided abdominal pain. She's been started on IV vancomycin for the left lateral malleolar ulcer cultured for Enterococcus and is under the care of her cement cutter, Dr. Lorenzana, regarding dosing around her dialysis. She does not report drainage nor significant discomfort associated with ulcer nor underlying chronic osteomyelitis of the malleolus and continues with HBOT as adjuvant therapy without reporting problems. 10/06/[address] Sifuentes. The patient continues to report some discomfort regarding her left lateral malleolar ulcer and underlying chronic osteomyelitis. She's seen Dr. Silva, her PCP, whose started a taper of her Celexa over the next 6 weeks due to a potentially serious interaction with fluorquinolone antibiotics which could eventually be useful in treating the Enterococcus faecalis positive wound culture from 09/28/15. She does not report fever or other acute issues currently and has been off of antibiotics for the past week due to the limited options based on sensitivities. She's continued HBOT over this period while we' ve attempted to find an appropriate antibiotic solution. Of note, her bone scan from 09/29/15 confirms persistence of chronic osteomyelitis also. 09/14/15 Seen by Shon Barlow PA-C. The patient reports no difficulty with her doxycycline or HBOT treatments. Her ankle ulcer continues to drain and she has not observed much change. 09/07/[address] Sifuentes. The patient does not report significant pain or drainage associated with her left lateral malleolar ulcer and she continues on doxycycline for associated chronic osteomyelitis without reporting adverse side effects. She's also tolerating HBOT without reporting any problems. 08/24/[address] Sifuentes. The patient reports increased pain and redness in the periwound area of the left lateral malleolar ulcer that overlies the site of chronic osteomyelitis. She does not report fever, chills, sweats, or increased drainage. Her wound culture at the last visit was unremarkable despite being off of antibiotics. She's been approved for HBOT and currently does not report acute URI symptoms but states she has some chronic sinus congestion. Of note, her CXR was consistent with COPD. 08/17/[address] Sifuentes. The patient states her left lateral malleous is more tender than last week with some radiation of pain to the mid foot. She does not report increased 08/04/[address] Sifuentes. The patient attend the ER following our last visit and was sent to [facility] due to acute on chronic renal failure. She'd apparently become dehydrated due to nausea and vomiting and was dx with a small bowel obstruction. Of note, I'd contacted her to discontinue Bactrim, which she'd been on for about a month for left lateral malleolar osteomyelitis, due to her Cr increasing. This has since returned to it's baseline and she's currently not on antibiotics. She does not report increased pain, swelling or drainage associated with the overlying ulcer. She's also to complete the 2nd phase of her bone scan checking for persistence of osteomyelitis later today. 07/28/[address] Sifuentes. The patient does not report drainage or pain associated with the left lateral malleolar ulcer. She continues on an extended course of Bactrim for possible osteomyelitis which is concerning based on her history of chronic kidney disease requiring dialysis. She notes she still produces adequate urine but has not had her renal function checked since 07/05/15 when her Cr was 2.7. 07/20/[address] Sifuentes. The patient does not report any new issues such as pain or increased drainage from the left lateral malleolar ulcer. She continues on Bactrim for possible chronic osteomyelitis of the lateral malleolus. 07/13/[address] Sifuentes. The patient's new to our clinic and has been referred by Dr. Silva for a non-healing surgical wound following excision of a skin cancer ( type unconfirmed) at the left lateral malleolus. This was reportedly performed about 2 months ago and she's been on an extended course of Bactrim for the past month with some resolution in drainage and surrounding erythema. She has an MRI and bone scan of the site from the end of April that both raise suspicion for osteomyelities however. Otherwise her medical history is complicated by chronic renal failure requiring dialysis and a long history of smoking. She does not have a history of diabetes nor does she report rest pain, claudication, fever, sweats, or pain at the ulcer site. Past Medical History This information was obtained from the patient Patient has a medical history of: Depression Carpal tunnel Chronic renal Stage V (Cr 2.7 on 07/05/15; dialysis M, F) Unilateral nephrectomy Allergic rhinitis Hypertension Insomnia Lumbago Osteoporosis Peptic Ulcer Small bowel obstruction (recurrent) Chronic osteomyelitis (left lateral malleolus; dx on MRI and bone scan April 2015 ; reconfirmed on repeat bone scan 07/28/15; persistent but improved on 01/26/16 bone scan) COPD Chronic ulcer (left lateral malleolus) Complaints and Symptoms This information was obtained from the patient Patient complains of: General Notes: I have reviewed and concur with the Review of Systems and Past Family Social History documents completed by the clinician, I have reviewed and concur with the Wound Assessment document completed by the clinician Ear/Nose/Mouth/Throat: Hearing Loss / Aid Integumentary (Hair/Skin/Nails): Open Sore Prior Wound History: Drainage, Erythema, Pain Patient denies complaints or symptoms related to: Cardiovascular (Central/Peripheral): Intermittent Claudication, Lower extremity (leg) resting pain, Lower extremity (leg) swelling Constitutional Symptoms (General Health): Chills, Fever Gastrointestinal (GI): Nausea / Vomiting, Stomach/abdominal pain Hematologic/Lymphatic: Bleeding / Clotting Disorders, Bleeding Tendency Musculoskeletal: Deformities, Joint Swelling Neurological: Abnormal Gait, Loss of Protective Sensation Prior Wound History: Bleeding, Malodor Psychiatric: Memory Loss Respiratory: Oxygen Use, Shortness of Breath OBJECTIVE Constitutional Vital signs reviewed and noted. Well developed. Alert. Clean appearing.. Height/ Length: 60 in (152.4 cm), Weight: 97.7 lbs (44.41 kgs), BMI: 19.1, Temperature: 98.5 ?F ( 36.94 ?C), Pulse: 54 bpm, Respiratory Rate: 16 breaths/min, Blood Pressure: 120/60 mmHg, Pulse Oximetry: 98 %. Ears, Nose, Mouth, and Throat: Mild hearing deficit. Respiratory: No respiratory distress. Even respirations and without use of accessory muscles.. Cardiovascular: Affected extremity exhibits no peripheral edema or cyanosis, is warm, and is well perfused. Capillary refill is less than 2 seconds. Integumentary (Hair, Skin) No periwound erythema, warmth, or significant drainage. No periwound rashes appreciated or noted otherwise.. Refer to appropriate clinician wound documentation for this visit; left lateral malleolus wound extends to subcut with base partially covered with pink granulation, remainder fibrin and slough. Maceration present in the periwound area. Wound #2 Left, Lateral Ankle is an acute Full Thickness Surgical Wound and has received a status of Not Healed. Subsequent wound encounter measurements are 0.9cm length x 0.2cm width x 0.3cm depth, with an area of 0.18 sq cm and a volume of 0.054 cubic cm. No tunneling has been noted. No sinus tract has been noted. No undermining has been noted. There is a moderate amount of serous drainage noted which has no odor. The patient reports a wound pain of level 5/10. The wound margin is attached. Wound bed has Yes epithelialization, No eschar, Yes slough, Yes pink, firm granulation. The periwound skin moisture is normal. The periwound skin color is normal. The periwound skin exhibited: Edema. The periwound skin did not exhibit: Brawny Induration, Excoriation, Induration, Callus, Crepitus, Fluctuance, Friable, Rash. The temperature of the periwound skin is WNL. Periwound skin does not exhibit signs or symptoms of infection. Local Pulse is Palpable. Neurological: Cranial nerves grossly intact with symmetric function normal by informal observation.. ASSESSMENT Active Problems ICD-10 (Encounter Diagnosis) L97.322 - Non-pressure chronic ulcer of left ankle with fat layer exposed (Encounter Diagnosis) T81.31XD - Disruption of external operation (surgical) wound, not elsewhere classified, subsequent encounter (Encounter Diagnosis) B95.2 - Enterococcus as the cause of diseases classified elsewhere PROCEDURES Wound #2 Wound #2 (Surgical Wound) is located on the left, lateral ankle. A skin/ subcutaneous tissue level surgical debridement with a total area debrided of 0.18 sq cm was performed by Isidoro Sifuentes MD. Subcutaneous was removed along with devitalized tissue: slough. The following instrument(s) were used: forceps. No anesthetic was required due to loss of sensation. A time out was conducted prior to the start of the procedure. A minimal amount of bleeding was controlled with pressure. The procedure was tolerated well with a pain level of 0 throughout and a pain level of 0 following the procedure. Post Debridement Measurements: 0.9cm length x 0.2cm width x 0.4cm depth; with an area of 0.18 sq cm and a volume of 0.072 cubic cm; Wound #2 (Surgical Wound) is located on the left, lateral ankle. A Disposable Wound Vac Application < 50 Sq Cm procedure was performed for the lower left extremity by Isidoro Sifuentes MD. A time out was conducted prior to the start of the procedure. The procedure was tolerated well. General Notes: SNAP 125mmHg applied. PLAN Wound Orders: Wound #2 Left, Lateral Ankle Anesthetic Topical Xylocaine to wound bed. - In clinic only. Cleanser Cleanse Wound: - Normal saline and gauze. May Shower. - Cover with cast protector. Dressings Change Dressing: - At next visit. SNAP Dressing - SNAP 125 Please observe to make sure the snap is not in the red. Additional Orders: Follow-Up Appointments Return Appointment: - - Saturday Other information: If you develop fever, chills, increased pain, drainage, redness or swelling please call our office. If after hours, respond to the ER. Should you experience any significant changes in your wound(s) or have any questions regarding your home care instructions please contact the wound center @ [phone]. If after hours, contact your primary care physician or go to the hospital emergency room. Scribing Attestation I attest, as the nurse, that I scribed these orders for the physician. I've reviewed the clinician's documentation and agree with the evaluation and plan as written. In addition the patient's wound demonstrates evidence of non-viable devitalized tissue which will continue to benefit from sharp debridement to help promote granulation and expedite healing. Negative pressure wound therapy will be utilized to facilitate granulation and removal of exudate and infectious material with the goal of expediting wound healing. Also, the patient will continue on IV vancomycin for another 7 days and we'll consider holding antibiotics thereafter. Electronic Signature(s) Signed By: Date: Isidoro Sifuentes MD 05/04/2018 14:27:05 Entered By: Isidoro Sifuentes on 05/02/2018 12:56:48
== END ==
PROVIDERS: PCP Family Medicine; Visit Provider Internal Medicine
DX: L97.322 Non-pressure chronic ulcer of left ankle with fat layer exposed (principal); T81.31XA Disruption of external operation (surgical) wound, not elsewhere classified, initial encounter; B95.2 Enterococcus as the cause of diseases classified elsewhere; N18.6 End stage renal disease
CPT/HCPCS: 11042; 97607

== ENCOUNTER → 2018-05-06 09:09 | Outpatient (CLI) | payer MEDICARE, SELFPAY ==
--- NOTE | 2018-05-06 | OV.WND_ITS ---
Progress Note Details Patient Name: Kristine Damon Patient Number: [id number] PatientPatientDate: 05/06/2018 Clinician: Jennifer Gonzales Clinician Cosigner: Cyn Gong Physician / Discharge Coordinator: Kaden Barlow SUBJECTIVE Chief Complaint This information was obtained from the patient Wound to left lateral ankle. Allergies penicillin, prednisone, cephalexin, codeine, acetaminophen, hydrocodone, ketorolac HPI This information was obtained from the patient 05/06/18. Seen by Shon Barlow PA-C. The patient reports stable drainage from her left malleolar wound and continues on Vancomycin to treat the Enterococcus infection of this wound. 05/02/18. Seen by Dr. Sifuentes. The patient reports improvement in the left foot pain and does not report increased drainage or other acute issues regarding the left lateral malleolus surgical wound that's being treated with negative pressure wound therapy. She's also continues on IV vancomycin during dialysis that's treating the recent Enterococcus positive wound culture. 04/29/18. Seen by Dr. Sifuentes. The patient reports improvement in the left foot pain over the past week and does not report increased drainage or other acute issues regarding the left lateral malleolus surgical wound that's being treated with negative pressure wound therapy. She's also now had 2 doses of IV vancomycin during dialysis this week that's treating the recent Enterococcus positive wound culture. 04/25/18. Seen by Dr. Sifuentes. The patient reports improvement in terms of pain associated with the chronic left lateral malleolus surgical wound since starting on IV vancomycin for the recently Enterococcus positive wound culture. She does not report adverse side effects and is receiving her antibiotics during dialysis. 04/22/18. Seen by Dr. Sifuentes. The patient reports some continued pain associated with the chronic left lateral malleolus surgical wound and she's been applying topical gentamicin to treat the recent Enterococcus positive wound culture. Her wound vac was discontinued last week also. Of note. she takes citalopram which complicates treating her wound infection with oral antibiotics and is also on dialysis for end stage renal disease and has received IV vancomycin without difficulty for her previous Enterococcus wound infections. 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 04/18/18. Seen by Dr. Sifuentes. The patient reports decreased pain associated with the chronic left lateral malleolus surgical wound over the past week since we held her wound vac. Her culture grew Enterococcus and she's not currently on antibiotics for this. Of note, her wound healing is complicated considerably by her end stage renal disease and being on dialysis and the wound is a result of deep bone debridement that was performed for chronic osteomyelitis of the malleolus. 04/15/18. Seen by Dr. Sifuentes. The patient continues to report persistent pain associated with the chronic left lateral malleolus surgical wound however she does not report increased drainage and has tolerated NPWT with the SNAP wound vac without difficulty. She' s now been off of antibiotics for the past month and underwent surgical bone debridement for chronic osteomyeylitis of the malleolus in late January. 04/11/18. Seen by Dr. Sifuentes. The patient does not report any new acute issues regarding her chronic left lateral malleolus surgical wound and she's tolerating NPWT with the SNAP wound vac without difficulty. 04/08/18. Seen by Dr. Sifuentes. The patient does not report any new acute issues regarding her chronic left lateral malleolus surgical wound and she's tolerating NPWT with the SNAP wound vac without difficulty. 04/04/18. Seen by Dr. Sifuentes. The patient continues to report pain associated with the chronic left lateral malleolus surgical wound despite the fact we discontinued NPWT at her last visit. Her wound culture grew only yeast and Diptheroids. 04/01/2018. Seen by Dr. Sifuentes. The patient continues to report pain associated with the chronic left lateral malleolus surgical wound. She does not report significant drainage from the site and has tolerated negative pressure wound therapy. She is not currently on antibiotics and has no other acute complaints today. 03/28/18. Seen by Dr. Sifuentes. The patient does not report significant pain nor drainage associated chronic left lateral malleolus surgical wound since her last visit and she's tolerating NPWT with the SNAP wound vac without difficulty. 03/25/18. Seen by Dr. Sifuentes. The patient continues to report pain throughout the midfoot and dorsum of the left foot that limits her ability to walk to only a couple of minutes at a time. She does not report any changes regarding the left lateral ankle surgical wound and is tolerating negative pressure wound therapy without difficulty. She's also not currently on oral antibiotics. 03/18/18. Seen by Dr. Sifuentes. The patient reports intermittent pain associated with the left lateral ankle however shoes are report increased drainage from the lateral malleolus surgical wound since her last visit. She is also tolerating negative pressure wound therapy without difficulty. 03/11/18. Seen by Dr Sifuentes.The patient reports some intermittent pain in the left lateral ankle when bearing weight but does not report significant drainage associated with the left lateral malleolus surgical wound since her last visit. She was changed from ciprofloxacin to doxycycline based on the recent culture growing a resistant coag negative staph organism. She does not report adverse side effects, fevers, or other acute issues today. 03/04/18. Seen by Dr. Sifuentes. The patient does not report significant pain nor drainage associated chronic left lateral malleolus surgical wound since her last visit. She continues on ciprofloxacin for chronic osteomyelitis also without reported adverse side effects. 02/25/18. Seen by Dr. Sifuentes. 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 She saw Dr. John last week and will start to use a bone stimulator to help heal the pathologic fracture. She does not report significant drainage associated with the left lateral malleolus surgical wound. 02/18/18. Seen by Dr. Sifuentes. The patient reports ongoing, but decreasing, pain associated with the left lateral malleolus surgical wound and she continues on ciprofloxacin and Flagy for chronic osteomyelitis without reporting adverse side effects. She'll see her surgeon, Dr. John, this . 02/14/18. Seen by Dr. Sifuentes. The patient reports decreased pain associated with the left lateral malleolus surgical wound and staff report only a moderate amount of drainage on the ROMEL wound vac dressing. She continues on cipro and Flagyl for chronic osteomyelitis and does not report adverse side effects or feeling unwell in general. 02/11/18. Seen by Dr. Sifuentes. The patient continues to report some persistent pain associated with the chronic left lateral malleolus surgical wound since her last visit. She does not report increased drainage however and is scheduled to see Dr. John, her orthopedic surgeon, next Saturday. She continues on ciprofloxacin and Flagyl as well and her surgery was a deep bone debridement to address the chronic osteomyelitis of the malleolus. 02/07/18. Seen by Dr. Sifuentes. 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 John. She reports some persistent discomfort at the wound site and is now on ciprofloxacin and Flagyl. Culture results of the execised bone are not yet available and the patient does not report any adverse side effects from the antibiotics, fevers, nor feeling unwell. 11/27/17. Seen by Dr. Sifuentes. The patient does not report pain associated with the chronic left lateral malleolus ulcer however she does describe diffuse pain throughout the lateral aspect of the foot and heel. She states this has been present for 6 weeks however has not raised the issue at our clinic until last week. She was seen by her primary care provider who subsequently ordered an MRI that revealed a nondisplaced fracture of the calcaneus. The MRI did mention also that the chronic osteomyelitis of the lateral malleolus appears to have improved from the previous imaging. 11/06/17. Seen by Dr. Sifuentes. The patient does not report significant pain or drainage associated with the chronic left lateral malleolar nonpressure ulcers since her last visit. She stop using a dressing due to pain and feels this has resolved in the interim. She's also asked that I look at a finger on her right hand that's been slow to heal since her dog scratched her a few weeks ago. She does not report pain at the site but states it's been draining a bit. 10/23/17. Seen by Dr. Sifuentes. The patient reports some persistent and modest pain associated with chronic left lateral malleolar nonpressure ulcer since her last visit. Does not report increased drainage and has been applying topical gentamicin to treat the recurrent cognitive staph wound infection. 10/02/17. The patient reports some intermittent pain associated with chronic left lateral malleolar nonpressure ulcer since her last visit however does not report increased drainage. 09/10/17. Seen by Shon Barlow PA-C. The patient reports no increase in drainage from her left lateral malleolar ulcer. She continues to abstain from smoking. 08/20/17. Seen by Dr. Sifuentes. The patient does not report significant pain or drainage associated with the chronic left lateral malleolar nonpressure ulcers since her last visit. She applying OTC topical antibiotic as prescribed to treat a recurrent wound infection noted at her last visit. 08/06/17. Seen by Dr. Sifuentes. The patient does not report significant pain or drainage associated with the chronic left lateral malleolar nonpressure ulcers since her last visit. 07/16/17. Seen by Dr. Sifuentes. The patient does not report pain or significant drainage associated with the chronic left lateral malleolar nonpressure ulcers since her last visit. 07/09/17. Seen by Dr. Sifuentes. The patient reports some intermittent pain associated with chronic left lateral malleolar nonpressure ulcer since her last visit however does not report increased drainage. 06/27/17. Seen by Dr. Sifuentes. The patient does not report pain or significant drainage associated with the chronic left lateral malleolar ulcer since her last visit. She feels her previously reported symptoms have improved since starting on levofloxacin for the polymicrobial wound culture following her last visit. 06/20/17. Seen by Dr. Sifuentes. The patient reports some burning associated with the left lateral chronic malleoli are not pressure ulcer. Her wound culture grew stenotrophomonas , enterococcus, and a coag-negative staph. She started on levofloxacin for this to be taken around her dialysis schedule. She does not report fevers or feeling unwell. 06/13/17. Seen by Shon Barlow PA-C. The patient reports that the steri-strips that were used to reduce wound tension were painful and she removed them. Her ulcer at that time grew E.coli which she has finished her antibiotic treatment for. 05/30/17. Seen by Dr. Sifuentes. The patient reports increased pain and drainage associated with the chronic left lateral malleolar ulcer over the past few days. She continues on dialysis and is scheduled to have cataract surgery later this week. She does not report fevers or feeling unwell and is not currently on antibiotics. 04/18/17. Seen by Dr. Sifuentes. The patient does not report pain or significant drainage the chronic left lateral malleolar ulcer over the past week. 03/28/17. Seen by Dr. Sifuentes. The patient does not report significant drainage or pain associated with the chronic left lateral malleolar non-pressure ulcer since her last visit. 03/07/17. Seen by Dr. Sifuentes. The patient does not report significant drainage or pain associated with the chronic left lateral malleolar non-pressure ulcer since her last visit. 02/14/17. Seen by Dr. Sifuentes. The patient feels the drainage from the chronic left lateral malleolar non-pressure ulcer noted at the last visit has decreased. Her wound culture grew Enterococcus and Enterobacter species however she did not tolerate her ciprofloxacin due to GI upset and stopped taking it after the few couple of doses. 02/05/17. Seen by Dr. Sifuentes. The patient does not report increased pain or drainage associated with chronic left lateral malleolar nonpressure ulcers since her last visit. 01/10/17. Seen by Dr. Sifuentes. The patient reports no increase in pain or significant drainage associated with the chronic left lateral malleolar nonpressure ulcer since her last visit. 12/20/16. Seen by Dr. Sifuentes. The patient does not report drainage associated with the chronic left lateral malleolus ulcer since her last visit. 11/29/16. Seen by Dr. Sifuentes. The patient does not report significant drainage associated with the chronic left lateral malleolus ulcer since her last visit. 11/08/16. Seen by Dr. Sifuentes. The patient does not report pain or significant drainage associated with the chronic left lateral malleolus ulcer since her last visit. 10/18/16 Seen by Shon Barlow PA-C. The patient does not report any change in pain or drainage from her chronic left lateral malleolar ulcer since her last evaluation. 10/04/16. Seen by Dr. Sifuentes. The patient does not report pain or significant drainage associated with the chronic left lateral malleolus ulcer. She continues to apply gentamicin cream at each dressing change due to chronic and recurring infections at the ulcer site. 09/27/16. Seen by Dr. Sifuentes.The patient does not report significant drainage or pain associated with chronic left lateral malleolus on pressure ulcer since her last visit. She continues to apply topical gentamicin ointment for the chronic wound infection. 09/13/16. Seen by Dr. Sifuentes. The patient reports scant drainage and no pain associated with the chronic left lateral malleolar non-pressure ulcer and she's applying topical gentamicin daily to treat the recent polymicrobial wound infection as recommended. 09/04/16 Seen by Shon Barlow PA-C. The patient reports minimal drainage and she is attempting to offload the ulcer area when she sleeps using a Ricketts-saver ankle protector. 08/30/16. Seen by Dr. Sifuentes. The patient reports increased pain and drainage associated with the chronic left lateral malleolr non-pressure ulcer over the past week but she does not report fevers or feeling unwell. Her wound culture from the last visit grew Enterobacter, E. coli, and a coag negative Staph and she started taking Bactrim and applying topical gentamicin yesterday. She's on a 1/2 dose of Bactrim due to her end stage renal disease. 08/23/16. Seen by Dr. Sifuentes. The patient reports some increased drainage on her dressing covering the chronic left lateral malleolar non-pressure ulcer. She does no report pain however nor fevers or feeling unwell. 08/09/16. Seen by Dr. Sifuentes. The patient does not report drainage or pain associated with the chronic left lateral malleolar ulcer. 07/26/16. Seen by Dr. Sifuentes. The patient does not report drainage or pain associated with the chronic left lateral malleolar ulcer since her last visit. 07/11/16. Seen by Dr. Sifuentes. The patient does not report drainage or pain associated with the chronic left lateral malleolar ulcer since her visit last week. 06/21/16 Seen by Shon Barlow PA-C. The patient reports no change in drainage from her left lateral malleolus ulcer. 06/14/16. Seen by Dr. Sifuentes. The patient reportedly minimal drainage associated with the chronic left lateral malleolus ulcer since her last visit. Her arterial Doppler of the left leg was remarkable. 06/07/16. Seen by Dr. Sifuentes. The patient does not report pain or drainage associated with the chronic left lateral malleolar ulcer over the past week. 05/31/16. Seen by Dr. Sifuentes. The patient does not report pain or drainage associated with chronic left lateral malleolus nonpressure ulcer over the past week. Of note, her wound culture from the last visit grew a resistant coag negative Staph. She's not currently taking antibiotics. 05/24/[address] Sifuentes. The patient does not report increased pain or drainage associated with the chronic left lateral malleolar non-pressure ulcer over the past week. 05/17/[address] Sifuentes. The patient does not report pain associated with the chronic left lateral malleolar non-pressure ulcer over the past week and there's only a scant amount of drainage on her dressing today. 05/10/[address] Sifuentes. The patient does not report pain or drainage associated with the chronic left lateral malleolar ulcer or associated underlying malleolar chronic osteomyelitis over the past week. Of note, she had another Epifix skin substitute placed last week. 05/03/[address] Sifuentes. The patient does not report pain or drainage associated with the left lateral malleolar non-pressure ulcer over the past week and she's tolerating HBOT, which is treating associated underlying chronic osteomyelitis, without reporting any issues. 04/26/16 Seen by Shon Barlow PA-C. The patient reports no noted change in her chronic left lateral malleolar ulcer since her last evaluation. 04/19/[address] Sifuentes. The patient does not report pain or drainage associated with the chronic left lateral malleolar non-pressure ulcer nor underlying chronic osteomyelitis. She continues with HBOT but has completed an 8 week course of IV vancomycin. 04/12/[address] Sifuentes. The patient does not report drainage or pain associated with her chronic left lateral malleolar ulcer and underlying chronic osteomyelitis. She' s received 3 placements of Epifix recently and continues with HBOT in addition to an extended course of IV vancomycin. Her wound culture from 04/05/16 showed no organisms and had no growth. 04/05/[address] Sifuentes. The patient does not report pain or drainage from her chronic left lateral malleolar non-pressure ulcer and she continues on IV vancomycin for chronic osteomyelitis of the underlying malleolus. 03/29/[address] Sifuentes. The patient does not report pain or drainage associated with her chronic left lateral malleolar non-pressure ulcer and she continues on IV vancomycin and hyperbaric therapy for underlying chronic osteomyelitis of the malleolus. 03/22/[address] Sifuentes. The patient does not report pain or drainage associated with the chronic left lateral malleolar non-pressure ulcer. 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 She also states she's no longer smoking. 03/06/16 Seen by Shon Barlow PA-C. The patient is changing her dressing daily, as instructed but now reports decreased drainage from her ulcer. 03/01/[address] Sifuentes. The patient does not report pain or significant drainage associated with her chronic left lateral malleolar ulcer and she continues on IV vancomycin and hyperbaric oxygen therapy for underlying chronic osteomyelitis of the lateral malleolus. 02/14/16 Seen by Shon Barlow PA-C. The patient feels her left malleolar ulcer with underlying chronic osteomyelitis may be larger and has been draining more since her last evaluation. She continues on doxycycline and her ulcer culture grew a staph Spp. and E Faecalis both of which were highly resistant. She reports that she is only smoking a few cigarettes per day. Her dialysis continues at 2 times weekly. Her COPD is stable on current medications with no recent exacerbations. 02/08/[address] Sifuentes. The patient does not report pain associated with the chronic left lateral malleolar non-pressure ulcer however the staff report brown drainage on her dressing today. She continues on doxycycline for a recent polymicrobial resistant Staph culture and her recent bone scan on 01/26/16 show's persistent left lateral malleolar osteomyelitis while reporting interval improvement from her previous scan on 09/29/15. She does not report fevers or feeling unwell and she also reports that she's significantly reduced her smoking over the past week. 01/26/[address] Sifuentes. The patient does not report pain associated with the chronic left lateral malleolar non-pressure ulcer nor does she report any problems with the wound vac. She continues on doxycycline without reporting adverse side effects and her bone scan shows persistence of osteomyelitis beneath the ulcer with interval improvement from that of 09/29/16. 01/19/[address] Sifuentes. The patient does not report pain associated with the chronic left lateral malleolar non-pressure ulcer nor any problems with the wound vac. She continues on doxycycline also for a resistant coag neg Staph culture and does not report adverse side effects. 01/12/[address] Sifuentes. The patient does not report pain or significant drainage associated with the chronic left lateral malleolar ulcer. She also is now on doxycycline for a resistant coag neg Staph culture from 12/28/15 and does not report adverse effects. 01/04/[address] Sifuentes. The patient reports some increased pain just proximal to the chronic left lateral malleolar non-pressure ulcer. She's currently using only topical gentamicin to treat an intermediately resistant coag negative Staph culture from the ulcer. 12/28/[address] Sifuentes. The patient does not report drainage and reports only minimal pain associated with the chronic left lateral malleolar ulcer. Her wound culture grew only resistant Staph epi. 12/21/[address] Sifuentes. The patient does not report pain or drainage associated with the chronic left lateral malleolar ulcer and she's continues off of antibiotics. 12/07/2015 Seen by Shon Barlow PA-C. The patient's moxifloxacin has now finished and she does not report any change in left ankle pain or drainage. 11/30/2015 Seen by Shon Barlow PA-C. The patient's moxifloxacin prescription continues for 1 more week. She is currently not undergoing adjunctive hyperbaric oxygen treatments. She reports no change in ulcer pain. 11/25/[address] Sifuentes. The patient does not report any new issues regarding her chronic left lateral malleolar non-pressure ulcer however the staff report some moderate maceration. 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 11/15/15 Seen by Shon Barlow PA-C. The patient will complete her last Vancomycin infusion tomorrow and will then discontinue this antibiotic and discontinue 3x weekly dialysis and resume twice weekly dialysis. Her ulcer, overlying chronic osteomyelitis has been draining minimally and has not been reportedly painful since her last evaluation. She is now weaned off of citalopram (which had interactions with Moxifloxacin, which we originally wanted to prescribe) and she reports no depression symptoms. 11/08/15 Seen by Shon Barlow PA-C. The patient does not report increased pain or drainage from her ulcer with underlying osteomyelitis. She continues on Vancomycin. 11/03/[address] Sifuentes. The patient does not report pain and only scant drainage from the chronic left lateral malleolar ulcer and underlying chronic osteomyelitis. She's on day 24 of IV vancomycin for the Enterococcus positive wound culture and HBOT for chronic osteomyelitis. 10/27/[address] Sifuentes. The patient reports minimal discomfort and scant drainage from the left lateral malleolar ulcer and underlying chronic osteomyelitis. She continues on IV vancomycin for this problem as well as HBOT without reporting problems. 10/19/15 Seen by Shon Barlow PA-C. The patient reports a stable appearance of her ulcer. She is going to begin 3x weekly dialysis due to the administration of Vancomycin. When she completes her Vancomycin course she will resume twice weekly dialysis. 10/12/[address] Sifuentes. The patient states she's had 5 episodes of diarrhea this morning and complains of some mild left sided abdominal pain. She's been started on IV vancomycin for the left lateral malleolar ulcer cultured for Enterococcus and is under the care of her draw bench operator, Dr. Lorenzana, regarding dosing around her dialysis. She does not report drainage nor significant discomfort associated with ulcer nor underlying chronic osteomyelitis of the malleolus and continues with HBOT as adjuvant therapy without reporting problems. 10/06/[address] Sifuentes. The patient continues to report some discomfort regarding her left lateral malleolar ulcer and underlying chronic osteomyelitis. She's seen Dr. Silva, her PCP, whose started a taper of her Celexa over the next 6 weeks due to a potentially serious interaction with fluorquinolone antibiotics which could eventually be useful in treating the Enterococcus faecalis positive wound culture from 09/28/15. She does not report fever or other acute issues currently and has been off of antibiotics for the past week due to the limited options based on sensitivities. She's continued HBOT over this period while we' ve attempted to find an appropriate antibiotic solution. Of note, her bone scan from 09/29/15 confirms persistence of chronic osteomyelitis also. 09/14/15 Seen by Shon Barlow PA-C. The patient reports no difficulty with her doxycycline or HBOT treatments. Her ankle ulcer continues to drain and she has not observed much change. 09/07/[address] Sifuentes. The patient does not report significant pain or drainage associated with her left lateral malleolar ulcer and she continues on doxycycline for associated chronic osteomyelitis without reporting adverse side effects. She's also tolerating HBOT without reporting any problems. 08/24/[address] Sifuentes. The patient reports increased pain and redness in the periwound area of the left lateral malleolar ulcer that overlies the site of chronic osteomyelitis. She does not report fever, chills, sweats, or increased drainage. Her wound culture at the last visit was unremarkable despite being off of antibiotics. She's been approved for HBOT and currently does not report acute URI symptoms but states she has some chronic sinus congestion. Of note, her CXR was consistent with COPD. 08/17/[address] Sifuentes. The patient states her left lateral malleous is more tender than last week with some radiation of pain to the mid foot. She does not report increased 08/04/[address] Sifuentes. The patient attend the ER following our last visit and was sent to [facility] due to acute on chronic renal failure. She'd apparently become dehydrated due to nausea and vomiting and was dx with a small bowel obstruction. Of note, I'd contacted her to discontinue Bactrim, which she'd been on for about a month for left lateral malleolar osteomyelitis, due to her Cr increasing. This has since returned to it's baseline and she's currently not on antibiotics. She does not report increased pain, swelling or drainage associated with the overlying ulcer. She's also to complete the 2nd phase of her bone scan checking for persistence of osteomyelitis later today. 07/28/[address] Sifuentes. The patient does not report drainage or pain associated with the left lateral malleolar ulcer. She continues on an extended course of Bactrim for possible osteomyelitis which is concerning based on her history of chronic kidney disease requiring dialysis. She notes she still produces adequate urine but has not had her renal function checked since 07/05/15 when her Cr was 2.7. 07/20/[address] Sifuentes. The patient does not report any new issues such as pain or increased drainage from the left lateral malleolar ulcer. She continues on Bactrim for possible chronic osteomyelitis of the lateral malleolus. 07/13/[address] Sifuentes. The patient's new to our clinic and has been referred by Dr. Silva for a non-healing surgical wound following excision of a skin cancer ( type unconfirmed) at the left lateral malleolus. This was reportedly performed about 2 months ago and she's been on an extended course of Bactrim for the past month with some resolution in drainage and surrounding erythema. She has an MRI and bone scan of the site from the end of April that both raise suspicion for osteomyelities however. Otherwise her medical history is complicated by chronic renal failure requiring dialysis and a long history of smoking. She does not have a history of diabetes nor does she report rest pain, claudication, fever, sweats, or pain at the ulcer site. 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, Substance Abuse - none Past Medical History This information was obtained from the patient Patient has a medical history of: Depression Carpal tunnel Chronic renal Stage V (Cr 2.7 on 07/05/15; dialysis M, F) Unilateral nephrectomy Allergic rhinitis Hypertension Insomnia Lumbago Osteoporosis Peptic Ulcer Small bowel obstruction (recurrent) Chronic osteomyelitis (left lateral malleolus; dx on MRI and bone scan April 2015 ; reconfirmed on repeat bone scan 07/28/15; persistent but improved on 01/26/16 bone scan) COPD Chronic ulcer (left lateral malleolus) Complaints and Symptoms This information was obtained from the patient Patient complains of: General Notes: I have reviewed and concur with the Review of Systems and Past Family Social History documents completed by the clinician, I have reviewed and concur with the Wound Assessment document completed by the clinician Ear/Nose/Mouth/Throat: Hearing Loss / Aid Integumentary (Hair/Skin/Nails): Open Sore Prior Wound History: Drainage, Erythema, Pain Patient denies complaints or symptoms related to: Cardiovascular (Central/Peripheral): Intermittent Claudication, Lower extremity (leg) resting pain, Lower extremity (leg) swelling Constitutional Symptoms (General Health): Chills, Fever Gastrointestinal (GI): Nausea / Vomiting, Stomach/abdominal pain Hematologic/Lymphatic: Bleeding / Clotting Disorders, Bleeding Tendency Musculoskeletal: Deformities, Joint Swelling Neurological: Abnormal Gait, Loss of Protective Sensation Prior Wound History: Bleeding, Malodor Psychiatric: Memory Loss Respiratory: Oxygen Use, Shortness of Breath OBJECTIVE Constitutional Vital signs reviewed and noted. Well developed, lucid, and in no acute distress. . Height/Length: 60 in (152.4 cm), Weight: 97.7 lbs (44.41 kgs), BMI: 19.1, Temperature: 98.7 ?F (37.06 ?C), Pulse: 67 bpm, Respiratory Rate: 16 breaths/min, Blood Pressure: 113/57 mmHg, Pulse Oximetry: 98 %. Ears, Nose, Mouth, and Throat: Grossly intact. Respiratory: No respiratory distress. Even respirations and without use of accessory muscles.. Gastrointestinal (GI): Non-obese. Nondistended.. Integumentary (Hair, Skin) Refer to appropriate clinician wound documentation for this visit; ulcer extends to subcutaneous fat layer. . Wound #2 Left, Lateral Ankle is an acute Full Thickness Surgical Wound and has received a status of Not Healed. Subsequent wound encounter measurements are 1cm length x 0.1cm width x 0.2cm depth, with an area of 0.1 sq cm and a volume of 0.02 cubic cm. No tunneling has been noted. No sinus tract has been noted. No undermining has been noted. There is a moderate amount of serous drainage noted which has no odor. The patient reports a wound pain of level 5/10. The wound margin is attached. Wound bed has Yes epithelialization, No eschar, Yes slough, Yes pink, firm granulation. The periwound skin moisture is normal. The periwound skin color is normal. The periwound skin exhibited: Edema. The periwound skin did not exhibit: Brawny Induration, Excoriation, Induration, Callus, Crepitus, Fluctuance, Friable, Rash. The temperature of the periwound skin is WNL. Periwound skin does not exhibit signs or symptoms of infection. Local Pulse is Palpable. General Notes: Satellite ulcer measures 0.3x0.9x0.1cm. Psychiatric: Judgement and insight: Normal affect with normal thought pattern. Alert and oriented 3/3. Memory grossly intact.. Normal affect. Mood appropriate.. ASSESSMENT Active Problems ICD-10 (Encounter Diagnosis) L97.322 - Non-pressure chronic ulcer of left ankle with fat layer exposed (Encounter Diagnosis) T81.31XD - Disruption of external operation (surgical) wound, not elsewhere classified, subsequent encounter (Encounter Diagnosis) B95.2 - Enterococcus as the cause of diseases classified elsewhere PROCEDURES Wound #2 Wound #2 (Surgical Wound) is located on the left, lateral ankle. A skin/ subcutaneous tissue level surgical debridement with a total area debrided of 0.3 sq cm was performed by Kaden Barlow PA. Subcutaneous was removed along with devitalized tissue: slough. The following instrument(s) were used: curette. Pain control was achieved using N/A. A time out was conducted prior to the start of the procedure. A minimal amount of bleeding was controlled with pressure. The procedure was tolerated well with a pain level of 0 throughout and a pain level of 0 following the procedure. Post Debridement Measurements: 1cm length x 0.3cm width x 0.3cm depth; with an area of 0.3 sq cm and a volume of 0.09 cubic cm; Wound #2 (Surgical Wound) is located on the left, lateral ankle. A Disposable Wound Vac Application < 50 Sq Cm procedure was performed for the lower left extremity by Kaden Barlow PA. A time out was conducted prior to the start of the procedure. The procedure was tolerated well. General Notes: SNAP 10x10 dressing and 125mmHg canister applied. Additional Information Muscle fascia or bone removed and sent to pathology?: No PLAN Wound Orders: Wound #2 Left, Lateral Ankle Anesthetic Topical Xylocaine to wound bed. - In clinic only. Cleanser Cleanse Wound: - Normal saline and gauze. May Shower. - Cover with cast protector. Dressings Change Dressing: - At next visit. SNAP Dressing - SNAP 10x10 dressing, 125mmHg canister. Please observe to make sure the snap is not in the red. Additional Orders: Follow-Up Appointments Return Appointment: - - Saturday and Saturday for SNAP dressing change. Other information: If you develop fever, chills, increased pain, drainage, redness or swelling please call our office. If after hours, respond to the ER. Should you experience any significant changes in your wound(s) or have any questions regarding your home care instructions please contact the wound center @ [phone]. If after hours, contact your primary care physician or go to the hospital emergency room. Scribing Attestation I attest, as the nurse, that I scribed these orders for the physician. General Notes: Order will be sent to continue IV vanco x 7 more days. I've reviewed the clinician's documentation and agree with the evaluation and plan as written. In addition the patient's ulcer demonstrates evidence of non-viable devitalized tissue which benefits from sharp debridement. After assessing the patient's signs and symptoms of infection in clinic today, we will continue her vancomycin for 7 more days to continue treating her enterococcus infection. Negative pressure wound therapy was applied today for the purpose of reducing local edema, promoting granulation tissue formation and perfusion, and for the removal of exudate and infectious material. Electronic Signature(s) Signed By: Date: Shon Barlow 05/11/2018 13:49:03 Entered By: Shon Barlow on 05/11/2018 12:36:46
== END ==
PROVIDERS: PCP Family Medicine; Visit Provider Physician Assistant
DX: L97.322 Non-pressure chronic ulcer of left ankle with fat layer exposed (principal); T81.31XA Disruption of external operation (surgical) wound, not elsewhere classified, initial encounter; B95.2 Enterococcus as the cause of diseases classified elsewhere
CPT/HCPCS: 11042; 97607

== ENCOUNTER → 2018-05-09 15:24 | Outpatient (CLI) | payer MEDICARE, SELFPAY ==
--- NOTE | 2018-05-09 | OV.WND_ITS ---
Progress Note Details Patient Name: Kristine Damon Patient Number: [id number] PatientPatientDate: 05/09/2018 Clinician: Morelia Ibarra Clinician Cosigner: Nicolette Thompson Physician / Ends Breakage Clerk: Kaden Barlow SUBJECTIVE Chief Complaint This information was obtained from the patient Wound to left lateral ankle. Allergies penicillin, prednisone, cephalexin, codeine, acetaminophen, hydrocodone, ketorolac HPI This information was obtained from the patient 05/09/18. Seen by Shon Barlow PA-C. The patient continues on Vancomycin for her left malleolar wound infection which demonstrates stable drainage this week. 05/06/18. Seen by Shon Barlow PA-C. The patient reports stable drainage from her left malleolar wound and continues on Vancomycin to treat the Enterococcus infection of this wound. 05/02/18. Seen by Dr. Sifuentes. The patient reports improvement in the left foot pain and does not report increased drainage or other acute issues regarding the left lateral malleolus surgical wound that's being treated with negative pressure wound therapy. She's also continues on IV vancomycin during dialysis that's treating the recent Enterococcus positive wound culture. 04/29/18. Seen by Dr. Sifuentes. The patient reports improvement in the left foot pain over the past week and does not report increased drainage or other acute issues regarding the left lateral malleolus surgical wound that's being treated with negative pressure wound therapy. She's also now had 2 doses of IV vancomycin during dialysis this week that's treating the recent Enterococcus positive wound culture. 04/25/18. Seen by Dr. Sifuentes. The patient reports improvement in terms of pain associated with the chronic left lateral malleolus surgical wound since starting on IV vancomycin for the recently Enterococcus positive wound culture. She does not report adverse side effects and is receiving her antibiotics during dialysis. 04/22/18. Seen by Dr. Sifuentes. The patient reports some continued pain associated with the chronic left lateral malleolus surgical wound and she's been applying topical gentamicin to treat the recent Enterococcus positive wound culture. Her wound vac was discontinued last week also. Of note. she takes citalopram which complicates treating her wound infection with oral antibiotics and is also on dialysis for end stage renal disease and has received IV vancomycin without difficulty for her previous Enterococcus wound infections. 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 04/18/18. Seen by Dr. Sifuentes. The patient reports decreased pain associated with the chronic left lateral malleolus surgical wound over the past week since we held her wound vac. Her culture grew Enterococcus and she's not currently on antibiotics for this. Of note, her wound healing is complicated considerably by her end stage renal disease and being on dialysis and the wound is a result of deep bone debridement that was performed for chronic osteomyelitis of the malleolus. 04/15/18. Seen by Dr. Sifuentes. The patient continues to report persistent pain associated with the chronic left lateral malleolus surgical wound however she does not report increased drainage and has tolerated NPWT with the SNAP wound vac without difficulty. She' s now been off of antibiotics for the past month and underwent surgical bone debridement for chronic osteomyeylitis of the malleolus in late January. 04/11/18. Seen by Dr. Sifuentes. The patient does not report any new acute issues regarding her chronic left lateral malleolus surgical wound and she's tolerating NPWT with the SNAP wound vac without difficulty. 04/08/18. Seen by Dr. Sifuentes. The patient does not report any new acute issues regarding her chronic left lateral malleolus surgical wound and she's tolerating NPWT with the SNAP wound vac without difficulty. 04/04/18. Seen by Dr. Sifuentes. The patient continues to report pain associated with the chronic left lateral malleolus surgical wound despite the fact we discontinued NPWT at her last visit. Her wound culture grew only yeast and Diptheroids. 04/01/2018. Seen by Dr. Sifuentes. The patient continues to report pain associated with the chronic left lateral malleolus surgical wound. She does not report significant drainage from the site and has tolerated negative pressure wound therapy. She is not currently on antibiotics and has no other acute complaints today. 03/28/18. Seen by Dr. Sifuentes. The patient does not report significant pain nor drainage associated chronic left lateral malleolus surgical wound since her last visit and she's tolerating NPWT with the SNAP wound vac without difficulty. 03/25/18. Seen by Dr. Sifuentes. The patient continues to report pain throughout the midfoot and dorsum of the left foot that limits her ability to walk to only a couple of minutes at a time. She does not report any changes regarding the left lateral ankle surgical wound and is tolerating negative pressure wound therapy without difficulty. She's also not currently on oral antibiotics. 03/18/18. Seen by Dr. Sifuentes. The patient reports intermittent pain associated with the left lateral ankle however shoes are report increased drainage from the lateral malleolus surgical wound since her last visit. She is also tolerating negative pressure wound therapy without difficulty. 03/11/18. Seen by Dr Sifuentes.The patient reports some intermittent pain in the left lateral ankle when bearing weight but does not report significant drainage associated with the left lateral malleolus surgical wound since her last visit. She was changed from ciprofloxacin to doxycycline based on the recent culture growing a resistant coag negative staph organism. She does not report adverse side effects, fevers, or other acute issues today. 03/04/18. Seen by Dr. Sifuentes. The patient does not report significant pain nor drainage associated chronic left lateral malleolus surgical wound since her last visit. She continues on ciprofloxacin for chronic osteomyelitis also without reported adverse side effects. 02/25/18. Seen by Dr. Sifuentes. 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 She saw Dr. John last week and will start to use a bone stimulator to help heal the pathologic fracture. She does not report significant drainage associated with the left lateral malleolus surgical wound. 02/18/18. Seen by Dr. Sifuentes. The patient reports ongoing, but decreasing, pain associated with the left lateral malleolus surgical wound and she continues on ciprofloxacin and Flagy for chronic osteomyelitis without reporting adverse side effects. She'll see her surgeon, Dr. John, this . 02/14/18. Seen by Dr. Sifuentes. The patient reports decreased pain associated with the left lateral malleolus surgical wound and staff report only a moderate amount of drainage on the ROMEL wound vac dressing. She continues on cipro and Flagyl for chronic osteomyelitis and does not report adverse side effects or feeling unwell in general. 02/11/18. Seen by Dr. Sifuentes. The patient continues to report some persistent pain associated with the chronic left lateral malleolus surgical wound since her last visit. She does not report increased drainage however and is scheduled to see Dr. John, her orthopedic surgeon, next Saturday. She continues on ciprofloxacin and Flagyl as well and her surgery was a deep bone debridement to address the chronic osteomyelitis of the malleolus. 02/07/18. Seen by Dr. Sifuentes. 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 John. She reports some persistent discomfort at the wound site and is now on ciprofloxacin and Flagyl. Culture results of the execised bone are not yet available and the patient does not report any adverse side effects from the antibiotics, fevers, nor feeling unwell. 11/27/17. Seen by Dr. Sifuentes. The patient does not report pain associated with the chronic left lateral malleolus ulcer however she does describe diffuse pain throughout the lateral aspect of the foot and heel. She states this has been present for 6 weeks however has not raised the issue at our clinic until last week. She was seen by her primary care provider who subsequently ordered an MRI that revealed a nondisplaced fracture of the calcaneus. The MRI did mention also that the chronic osteomyelitis of the lateral malleolus appears to have improved from the previous imaging. 11/06/17. Seen by Dr. Sifuentes. The patient does not report significant pain or drainage associated with the chronic left lateral malleolar nonpressure ulcers since her last visit. She stop using a dressing due to pain and feels this has resolved in the interim. She's also asked that I look at a finger on her right hand that's been slow to heal since her dog scratched her a few weeks ago. She does not report pain at the site but states it's been draining a bit. 10/23/17. Seen by Dr. Sifuentes. The patient reports some persistent and modest pain associated with chronic left lateral malleolar nonpressure ulcer since her last visit. Does not report increased drainage and has been applying topical gentamicin to treat the recurrent cognitive staph wound infection. 10/02/17. The patient reports some intermittent pain associated with chronic left lateral malleolar nonpressure ulcer since her last visit however does not report increased drainage. 09/10/17. Seen by Shon Barlow PA-C. The patient reports no increase in drainage from her left lateral malleolar ulcer. She continues to abstain from smoking. 08/20/17. Seen by Dr. Sifuentes. The patient does not report significant pain or drainage associated with the chronic left lateral malleolar nonpressure ulcers since her last visit. She applying OTC topical antibiotic as prescribed to treat a recurrent wound infection noted at her last visit. 08/06/17. Seen by Dr. Sifuentes. The patient does not report significant pain or drainage associated with the chronic left lateral malleolar nonpressure ulcers since her last visit. 07/16/17. Seen by Dr. Sifuentes. The patient does not report pain or significant drainage associated with the chronic left lateral malleolar nonpressure ulcers since her last visit. 07/09/17. Seen by Dr. Sifuentes. The patient reports some intermittent pain associated with chronic left lateral malleolar nonpressure ulcer since her last visit however does not report increased drainage. 06/27/17. Seen by Dr. Sifuentes. The patient does not report pain or significant drainage associated with the chronic left lateral malleolar ulcer since her last visit. She feels her previously reported symptoms have improved since starting on levofloxacin for the polymicrobial wound culture following her last visit. 06/20/17. Seen by Dr. Sifuentes. The patient reports some burning associated with the left lateral chronic malleoli are not pressure ulcer. Her wound culture grew stenotrophomonas , enterococcus, and a coag-negative staph. She started on levofloxacin for this to be taken around her dialysis schedule. She does not report fevers or feeling unwell. 06/13/17. Seen by Shon Barlow PA-C. The patient reports that the steri-strips that were used to reduce wound tension were painful and she removed them. Her ulcer at that time grew E.coli which she has finished her antibiotic treatment for. 05/30/17. Seen by Dr. Sifuentes. The patient reports increased pain and drainage associated with the chronic left lateral malleolar ulcer over the past few days. She continues on dialysis and is scheduled to have cataract surgery later this week. She does not report fevers or feeling unwell and is not currently on antibiotics. 04/18/17. Seen by Dr. Sifuentes. The patient does not report pain or significant drainage the chronic left lateral malleolar ulcer over the past week. 03/28/17. Seen by Dr. Sifuentes. The patient does not report significant drainage or pain associated with the chronic left lateral malleolar non-pressure ulcer since her last visit. 03/07/17. Seen by Dr. Sifuentes. The patient does not report significant drainage or pain associated with the chronic left lateral malleolar non-pressure ulcer since her last visit. 02/14/17. Seen by Dr. Sifuentes. The patient feels the drainage from the chronic left lateral malleolar non-pressure ulcer noted at the last visit has decreased. Her wound culture grew Enterococcus and Enterobacter species however she did not tolerate her ciprofloxacin due to GI upset and stopped taking it after the few couple of doses. 02/05/17. Seen by Dr. Sifuentes. The patient does not report increased pain or drainage associated with chronic left lateral malleolar nonpressure ulcers since her last visit. 01/10/17. Seen by Dr. Sifuentes. The patient reports no increase in pain or significant drainage associated with the chronic left lateral malleolar nonpressure ulcer since her last visit. 12/20/16. Seen by Dr. Sifuentes. The patient does not report drainage associated with the chronic left lateral malleolus ulcer since her last visit. 11/29/16. Seen by Dr. Sifuentes. The patient does not report significant drainage associated with the chronic left lateral malleolus ulcer since her last visit. 11/08/16. Seen by Dr. Sifuentes. The patient does not report pain or significant drainage associated with the chronic left lateral malleolus ulcer since her last visit. 10/18/16 Seen by Shon Barlow PA-C. The patient does not report any change in pain or drainage from her chronic left lateral malleolar ulcer since her last evaluation. 10/04/16. Seen by Dr. Sifuentes. The patient does not report pain or significant drainage associated with the chronic left lateral malleolus ulcer. She continues to apply gentamicin cream at each dressing change due to chronic and recurring infections at the ulcer site. 09/27/16. Seen by Dr. Sifuentes.The patient does not report significant drainage or pain associated with chronic left lateral malleolus on pressure ulcer since her last visit. She continues to apply topical gentamicin ointment for the chronic wound infection. 09/13/16. Seen by Dr. Sifuentes. The patient reports scant drainage and no pain associated with the chronic left lateral malleolar non-pressure ulcer and she's applying topical gentamicin daily to treat the recent polymicrobial wound infection as recommended. 09/04/16 Seen by Shon Barlow PA-C. The patient reports minimal drainage and she is attempting to offload the ulcer area when she sleeps using a [employer]-saver ankle protector. 08/30/16. Seen by Dr. Sifuentes. The patient reports increased pain and drainage associated with the chronic left lateral malleolr non-pressure ulcer over the past week but she does not report fevers or feeling unwell. Her wound culture from the last visit grew Enterobacter, E. coli, and a coag negative Staph and she started taking Bactrim and applying topical gentamicin yesterday. She's on a 1/2 dose of Bactrim due to her end stage renal disease. 08/23/16. Seen by Dr. Sifuentes. The patient reports some increased drainage on her dressing covering the chronic left lateral malleolar non-pressure ulcer. She does no report pain however nor fevers or feeling unwell. 08/09/16. Seen by Dr. Sifuentes. The patient does not report drainage or pain associated with the chronic left lateral malleolar ulcer. 07/26/16. Seen by Dr. Sifuentes. The patient does not report drainage or pain associated with the chronic left lateral malleolar ulcer since her last visit. 07/11/16. Seen by Dr. Sifuentes. The patient does not report drainage or pain associated with the chronic left lateral malleolar ulcer since her visit last week. 06/21/16 Seen by Shon Barlow PA-C. The patient reports no change in drainage from her left lateral malleolus ulcer. 06/14/16. Seen by Dr. Sifuentes. The patient reportedly minimal drainage associated with the chronic left lateral malleolus ulcer since her last visit. Her arterial Doppler of the left leg was remarkable. 06/07/16. Seen by Dr. Sifuentes. The patient does not report pain or drainage associated with the chronic left lateral malleolar ulcer over the past week. 05/31/16. Seen by Dr. Sifuentes. The patient does not report pain or drainage associated with chronic left lateral malleolus nonpressure ulcer over the past week. Of note, her wound culture from the last visit grew a resistant coag negative Staph. She's not currently taking antibiotics. 05/24/[address] Sifuentes. The patient does not report increased pain or drainage associated with the chronic left lateral malleolar non-pressure ulcer over the past week. 05/17/[address] Sifuentes. The patient does not report pain associated with the chronic left lateral malleolar non-pressure ulcer over the past week and there's only a scant amount of drainage on her dressing today. 05/10/[address] Sifuentes. The patient does not report pain or drainage associated with the chronic left lateral malleolar ulcer or associated underlying malleolar chronic osteomyelitis over the past week. Of note, she had another Epifix skin substitute placed last week. 05/03/[address] Sifuentes. The patient does not report pain or drainage associated with the left lateral malleolar non-pressure ulcer over the past week and she's tolerating HBOT, which is treating associated underlying chronic osteomyelitis, without reporting any issues. 04/26/16 Seen by Shon Barlow PA-C. The patient reports no noted change in her chronic left lateral malleolar ulcer since her last evaluation. 04/19/[address] Sifuentes. The patient does not report pain or drainage associated with the chronic left lateral malleolar non-pressure ulcer nor underlying chronic osteomyelitis. She continues with HBOT but has completed an 8 week course of IV vancomycin. 04/12/[address] Sifuentes. The patient does not report drainage or pain associated with her chronic left lateral malleolar ulcer and underlying chronic osteomyelitis. She' s received 3 placements of Epifix recently and continues with HBOT in addition to an extended course of IV vancomycin. Her wound culture from 04/05/16 showed no organisms and had no growth. 04/05/[address] Sifuentes. The patient does not report pain or drainage from her chronic left lateral malleolar non-pressure ulcer and she continues on IV vancomycin for chronic osteomyelitis of the underlying malleolus. 03/29/[address] Sifuentes. The patient does not report pain or drainage associated with her chronic left lateral malleolar non-pressure ulcer and she continues on IV vancomycin and hyperbaric therapy for underlying chronic osteomyelitis of the malleolus. 03/22/[address] Sifuentes. The patient does not report pain or drainage associated with the chronic left lateral malleolar non-pressure ulcer. 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 She also states she's no longer smoking. 03/06/16 Seen by Shon Barlow PA-C. The patient is changing her dressing daily, as instructed but now reports decreased drainage from her ulcer. 03/01/[address] Sifuentes. The patient does not report pain or significant drainage associated with her chronic left lateral malleolar ulcer and she continues on IV vancomycin and hyperbaric oxygen therapy for underlying chronic osteomyelitis of the lateral malleolus. 02/14/16 Seen by Shon Barlow PA-C. The patient feels her left malleolar ulcer with underlying chronic osteomyelitis may be larger and has been draining more since her last evaluation. She continues on doxycycline and her ulcer culture grew a staph Spp. and E Faecalis both of which were highly resistant. She reports that she is only smoking a few cigarettes per day. Her dialysis continues at 2 times weekly. Her COPD is stable on current medications with no recent exacerbations. 02/08/[address] Sifuentes. The patient does not report pain associated with the chronic left lateral malleolar non-pressure ulcer however the staff report brown drainage on her dressing today. She continues on doxycycline for a recent polymicrobial resistant Staph culture and her recent bone scan on 01/26/16 show's persistent left lateral malleolar osteomyelitis while reporting interval improvement from her previous scan on 09/29/15. She does not report fevers or feeling unwell and she also reports that she's significantly reduced her smoking over the past week. 01/26/[address] Sifuentes. The patient does not report pain associated with the chronic left lateral malleolar non-pressure ulcer nor does she report any problems with the wound vac. She continues on doxycycline without reporting adverse side effects and her bone scan shows persistence of osteomyelitis beneath the ulcer with interval improvement from that of 09/29/16. 01/19/[address] Sifuentes. The patient does not report pain associated with the chronic left lateral malleolar non-pressure ulcer nor any problems with the wound vac. She continues on doxycycline also for a resistant coag neg Staph culture and does not report adverse side effects. 01/12/[address] Sifuentes. The patient does not report pain or significant drainage associated with the chronic left lateral malleolar ulcer. She also is now on doxycycline for a resistant coag neg Staph culture from 12/28/15 and does not report adverse effects. 01/04/[address] Sifuentes. The patient reports some increased pain just proximal to the chronic left lateral malleolar non-pressure ulcer. She's currently using only topical gentamicin to treat an intermediately resistant coag negative Staph culture from the ulcer. 12/28/[address] Sifuentes. The patient does not report drainage and reports only minimal pain associated with the chronic left lateral malleolar ulcer. Her wound culture grew only resistant Staph epi. 12/21/[address] Sifuentes. The patient does not report pain or drainage associated with the chronic left lateral malleolar ulcer and she's continues off of antibiotics. 12/07/2015 Seen by Shon Barlow PA-C. The patient's moxifloxacin has now finished and she does not report any change in left ankle pain or drainage. 11/30/2015 Seen by Shon Barlow PA-C. The patient's moxifloxacin prescription continues for 1 more week. She is currently not undergoing adjunctive hyperbaric oxygen treatments. She reports no change in ulcer pain. 11/25/[address] Sifuentes. The patient does not report any new issues regarding her chronic left lateral malleolar non-pressure ulcer however the staff report some moderate maceration. 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 11/15/15 Seen by Shon Barlow PA-C. The patient will complete her last Vancomycin infusion tomorrow and will then discontinue this antibiotic and discontinue 3x weekly dialysis and resume twice weekly dialysis. Her ulcer, overlying chronic osteomyelitis has been draining minimally and has not been reportedly painful since her last evaluation. She is now weaned off of citalopram (which had interactions with Moxifloxacin, which we originally wanted to prescribe) and she reports no depression symptoms. 11/08/15 Seen by Shon Barlow PA-C. The patient does not report increased pain or drainage from her ulcer with underlying osteomyelitis. She continues on Vancomycin. 11/03/[address] Sifuentes. The patient does not report pain and only scant drainage from the chronic left lateral malleolar ulcer and underlying chronic osteomyelitis. She's on day 24 of IV vancomycin for the Enterococcus positive wound culture and HBOT for chronic osteomyelitis. 10/27/[address] Sifuentes. The patient reports minimal discomfort and scant drainage from the left lateral malleolar ulcer and underlying chronic osteomyelitis. She continues on IV vancomycin for this problem as well as HBOT without reporting problems. 10/19/15 Seen by Shon Barlow PA-C. The patient reports a stable appearance of her ulcer. She is going to begin 3x weekly dialysis due to the administration of Vancomycin. When she completes her Vancomycin course she will resume twice weekly dialysis. 10/12/[address] Sifuentes. The patient states she's had 5 episodes of diarrhea this morning and complains of some mild left sided abdominal pain. She's been started on IV vancomycin for the left lateral malleolar ulcer cultured for Enterococcus and is under the care of her lathe tender, Dr. Lorenzana, regarding dosing around her dialysis. She does not report drainage nor significant discomfort associated with ulcer nor underlying chronic osteomyelitis of the malleolus and continues with HBOT as adjuvant therapy without reporting problems. 10/06/[address] Sifuentes. The patient continues to report some discomfort regarding her left lateral malleolar ulcer and underlying chronic osteomyelitis. She's seen Dr. Silva, her PCP, whose started a taper of her Celexa over the next 6 weeks due to a potentially serious interaction with fluorquinolone antibiotics which could eventually be useful in treating the Enterococcus faecalis positive wound culture from 09/28/15. She does not report fever or other acute issues currently and has been off of antibiotics for the past week due to the limited options based on sensitivities. She's continued HBOT over this period while we' ve attempted to find an appropriate antibiotic solution. Of note, her bone scan from 09/29/15 confirms persistence of chronic osteomyelitis also. 09/14/15 Seen by Shon Barlow PA-C. The patient reports no difficulty with her doxycycline or HBOT treatments. Her ankle ulcer continues to drain and she has not observed much change. 09/07/[address] Sifuentes. The patient does not report significant pain or drainage associated with her left lateral malleolar ulcer and she continues on doxycycline for associated chronic osteomyelitis without reporting adverse side effects. She's also tolerating HBOT without reporting any problems. 08/24/[address] Sifuentes. The patient reports increased pain and redness in the periwound area of the left lateral malleolar ulcer that overlies the site of chronic osteomyelitis. She does not report fever, chills, sweats, or increased drainage. Her wound culture at the last visit was unremarkable despite being off of antibiotics. She's been approved for HBOT and currently does not report acute URI symptoms but states she has some chronic sinus congestion. Of note, her CXR was consistent with COPD. 08/17/[address] Sifuentes. The patient states her left lateral malleous is more tender than last week with some radiation of pain to the mid foot. She does not report increased 08/04/[address] Sifuentes. The patient attend the ER following our last visit and was sent to [facility] due to acute on chronic renal failure. She'd apparently become dehydrated due to nausea and vomiting and was dx with a small bowel obstruction. Of note, I'd contacted her to discontinue Bactrim, which she'd been on for about a month for left lateral malleolar osteomyelitis, due to her Cr increasing. This has since returned to it's baseline and she's currently not on antibiotics. She does not report increased pain, swelling or drainage associated with the overlying ulcer. She's also to complete the 2nd phase of her bone scan checking for persistence of osteomyelitis later today. 07/28/[address] Sifuentes. The patient does not report drainage or pain associated with the left lateral malleolar ulcer. She continues on an extended course of Bactrim for possible osteomyelitis which is concerning based on her history of chronic kidney disease requiring dialysis. She notes she still produces adequate urine but has not had her renal function checked since 07/05/15 when her Cr was 2.7. 07/20/[address] Sifuentes. The patient does not report any new issues such as pain or increased drainage from the left lateral malleolar ulcer. She continues on Bactrim for possible chronic osteomyelitis of the lateral malleolus. 07/13/[address] Sifuentes. The patient's new to our clinic and has been referred by Dr. Silva for a non-healing surgical wound following excision of a skin cancer ( type unconfirmed) at the left lateral malleolus. This was reportedly performed about 2 months ago and she's been on an extended course of Bactrim for the past month with some resolution in drainage and surrounding erythema. She has an MRI and bone scan of the site from the end of April that both raise suspicion for osteomyelities however. Otherwise her medical history is complicated by chronic renal failure requiring dialysis and a long history of smoking. She does not have a history of diabetes nor does she report rest pain, claudication, fever, sweats, or pain at the ulcer site. 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, Substance Abuse - none Past Medical History This information was obtained from the patient Patient has a medical history of: Depression Carpal tunnel Chronic renal Stage V (Cr 2.7 on 07/05/15; dialysis M, F) Unilateral nephrectomy Allergic rhinitis Hypertension Insomnia Lumbago Osteoporosis Peptic Ulcer Small bowel obstruction (recurrent) Chronic osteomyelitis (left lateral malleolus; dx on MRI and bone scan April 2015 ; reconfirmed on repeat bone scan 07/28/15; persistent but improved on 01/26/16 bone scan) COPD Chronic ulcer (left lateral malleolus) Complaints and Symptoms This information was obtained from the patient Patient complains of: General Notes: I have reviewed and concur with the Review of Systems and Past Family Social History documents completed by the clinician, I have reviewed and concur with the Wound Assessment document completed by the clinician Ear/Nose/Mouth/Throat: Hearing Loss / Aid Integumentary (Hair/Skin/Nails): Open Sore Prior Wound History: Drainage, Erythema, Pain Patient denies complaints or symptoms related to: Cardiovascular (Central/Peripheral): Intermittent Claudication, Lower extremity (leg) resting pain, Lower extremity (leg) swelling Constitutional Symptoms (General Health): Chills, Fever Gastrointestinal (GI): Nausea / Vomiting, Stomach/abdominal pain Hematologic/Lymphatic: Bleeding / Clotting Disorders, Bleeding Tendency Musculoskeletal: Deformities, Joint Swelling Neurological: Abnormal Gait, Loss of Protective Sensation Prior Wound History: Bleeding, Malodor Psychiatric: Memory Loss Respiratory: Oxygen Use, Shortness of Breath OBJECTIVE Constitutional Vital signs reviewed and noted. Well developed, lucid, and in no acute distress. . Height/Length: 60 in (152.4 cm), Weight: 97.7 lbs (44.41 kgs), BMI: 19.1, Temperature: 97.0 ?F (36.11 ?C), Pulse: 58 bpm, Respiratory Rate: 16 breaths/min, Blood Pressure: 108/63 mmHg, Pulse Oximetry: 98 %. Eyes: Conjunctiva clear and without icterus. Pupils are equal and round; EOM's intact. Ears, Nose, Mouth, and Throat: Grossly intact. Respiratory: No respiratory distress. Even respirations and without use of accessory muscles.. Gastrointestinal (GI): Non-obese. Nondistended.. Integumentary (Hair, Skin) Refer to appropriate clinician wound documentation for this visit; ulcer extends to subcutaneous fat layer. . Wound #2 Left, Lateral Ankle is an acute Full Thickness Surgical Wound and has received a status of Not Healed. Subsequent wound encounter measurements are 1cm length x 0.1cm width x 0.4cm depth, with an area of 0.1 sq cm and a volume of 0.04 cubic cm. No tunneling has been noted. No sinus tract has been noted. No undermining has been noted. There is a small amount of serous drainage noted which has no odor. The patient reports a wound pain of level 2/10. The wound margin is attached. Wound bed has Yes epithelialization, No eschar, Yes slough, Yes pink, firm granulation. The periwound skin color is normal. The periwound skin exhibited: Edema, Maceration. The periwound skin did not exhibit: Brawny Induration, Excoriation, Induration, Callus, Crepitus, Fluctuance, Friable, Rash, Dry/Scaly, Moist. The temperature of the periwound skin is WNL. Periwound skin does not exhibit signs or symptoms of infection. Local Pulse is Palpable. Psychiatric: Judgement and insight: Normal affect with normal thought pattern. Alert and oriented 3/3. Memory grossly intact.. Normal affect. Mood appropriate.. ASSESSMENT Active Problems ICD-10 (Encounter Diagnosis) L97.322 - Non-pressure chronic ulcer of left ankle with fat layer exposed (Encounter Diagnosis) T81.31XD - Disruption of external operation (surgical) wound, not elsewhere classified, subsequent encounter (Encounter Diagnosis) B95.2 - Enterococcus as the cause of diseases classified elsewhere PROCEDURES Wound #2 Wound #2 (Surgical Wound) is located on the left, lateral ankle. A skin/ subcutaneous tissue level surgical debridement with a total area debrided of 0.2 sq cm was performed by Kaden Barlow PA. Subcutaneous was removed along with devitalized tissue: slough. The following instrument(s) were used: curette. Pain control was achieved using 4% Lido. A time out was conducted prior to the start of the procedure. A minimal amount of bleeding was controlled with n/a. The procedure was tolerated well with a pain level of 0 throughout and a pain level of 0 following the procedure. Post Debridement Measurements: 1cm length x 0.2cm width x 0.4cm depth; with an area of 0.2 sq cm and a volume of 0.08 cubic cm; Wound #2 (Surgical Wound) is located on the left, lateral ankle. A Disposable Wound Vac Application < 50 Sq Cm procedure was performed for the lower left extremity by Kaden Barlow PA. A time out was conducted prior to the start of the procedure. The procedure was tolerated well. General Notes: SNAP 10x10 dressing and 125mmHg canister applied. Additional Information Muscle fascia or bone removed and sent to pathology?: No PLAN Wound Orders: Wound #2 Left, Lateral Ankle Anesthetic Topical Xylocaine to wound bed. - In clinic only. Cleanser Cleanse Wound: - Normal saline and gauze. May Shower. - Cover with cast protector. Dressings Change Dressing: - At next visit. SNAP Dressing - SNAP 10x10 dressing, 125mmHg canister. Please observe to make sure the snap is not in the red. Additional Orders: Follow-Up Appointments Return Appointment: - - Saturday and Saturday for SNAP dressing change. Other information: If you develop fever, chills, increased pain, drainage, redness or swelling please call our office. If after hours, respond to the ER. Should you experience any significant changes in your wound(s) or have any questions regarding your home care instructions please contact the wound center @ [phone]. If after hours, contact your primary care physician or go to the hospital emergency room. Scribing Attestation I attest, as the nurse, that I scribed these orders for the physician. General Notes: Continue IV vanco as ordered, at your dialysis appointments. I've reviewed the clinician's documentation and agree with the evaluation and plan as written. In addition the patient's ulcer demonstrates evidence of non-viable devitalized tissue which benefits from sharp debridement. Separate from the need for debridement today to speed healing, the patient's infection was assessed and appears to still be active. The patient was enouraged to continue complying with the ordered antimicrobial regemin for ongoing treatment for this issue. Negative pressure wound therapy was applied today for the purpose of reducing local edema, promoting granulation tissue formation and perfusion, and for the removal of exudate and infectious material. Electronic Signature(s) Signed By: Date: Shon Barlow 05/12/2018 22:08:02 Entered By: Shon Barlow on 05/12/2018 21:07:32
== END ==
PROVIDERS: PCP Family Medicine; Visit Provider Physician Assistant
DX: T81.31XA Disruption of external operation (surgical) wound, not elsewhere classified, initial encounter (principal); L97.322 Non-pressure chronic ulcer of left ankle with fat layer exposed; B95.2 Enterococcus as the cause of diseases classified elsewhere
CPT/HCPCS: 11042; 97607

== ENCOUNTER → 2018-05-13 08:46 | Outpatient (CLI) | payer MEDICARE, SELFPAY ==
--- NOTE | 2018-05-13 | OV.WND_ITS ---
Progress Note Details Patient Name: Kritsine Damon Patient Number: [id number] PatientPatientDate: 05/13/2018 Clinician: Nicolette Thompson Clinician Cosigner: Morelia Ibarra Physician / Actuarial Assistant: Isidoro Sifuentes SUBJECTIVE Chief Complaint This information was obtained from the patient Wound to left lateral ankle. Allergies penicillin, prednisone, cephalexin, codeine, acetaminophen, hydrocodone, ketorolac HPI This information was obtained from the patient 05/13/18. Seen by Dr. Sifuentes. The patient reports continued pain in the left lateral malleolus posterior to the surgical wound and she has an MRI scheduled for this morning to evaluate the source of the pain. She also continues on IV vancomycin that's treating the recurrent Enterococcus positive culture and being infused during dialysis. She does not report fevers or feeling unwell otherwise and is tolerating negative pressure wound therapy without difficulty. 05/09/18. Seen by Shon Barlow PA-C. The patient continues on Vancomycin for her left malleolar wound infection which demonstrates stable drainage this week. 05/06/18. Seen by Shon Barlow PA-C. The patient reports stable drainage from her left malleolar wound and continues on Vancomycin to treat the Enterococcus infection of this wound. 05/02/18. Seen by Dr. Sifuentes. The patient reports improvement in the left foot pain and does not report increased drainage or other acute issues regarding the left lateral malleolus surgical wound that's being treated with negative pressure wound therapy. She's also continues on IV vancomycin during dialysis that's treating the recent Enterococcus positive wound culture. 04/29/18. Seen by Dr. Sifuentes. The patient reports improvement in the left foot pain over the past week and does not report increased drainage or other acute issues regarding the left lateral malleolus surgical wound that's being treated with negative pressure wound therapy. She's also now had 2 doses of IV vancomycin during dialysis this week that's treating the recent Enterococcus positive wound culture. 04/25/18. Seen by Dr. Sifuentes. The patient reports improvement in terms of pain associated with the chronic left lateral malleolus surgical wound since starting on IV vancomycin for the recently Enterococcus positive wound culture. She does not report adverse side effects and is receiving her antibiotics during dialysis. 04/22/18. Seen by Dr. Sifuentes. The patient reports some continued pain associated with the chronic left lateral malleolus surgical wound and she's been applying topical gentamicin to treat the recent Enterococcus positive wound culture. Her wound vac was discontinued last week also. Of note. she takes citalopram which complicates treating her wound infection with oral antibiotics and is also on dialysis for end stage renal disease and has received IV vancomycin without difficulty for her previous Enterococcus wound infections. 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 04/18/18. Seen by Dr. Sifuentes. The patient reports decreased pain associated with the chronic left lateral malleolus surgical wound over the past week since we held her wound vac. Her culture grew Enterococcus and she's not currently on antibiotics for this. Of note, her wound healing is complicated considerably by her end stage renal disease and being on dialysis and the wound is a result of deep bone debridement that was performed for chronic osteomyelitis of the malleolus. 04/15/18. Seen by Dr. Sifuentes. The patient continues to report persistent pain associated with the chronic left lateral malleolus surgical wound however she does not report increased drainage and has tolerated NPWT with the SNAP wound vac without difficulty. She' s now been off of antibiotics for the past month and underwent surgical bone debridement for chronic osteomyeylitis of the malleolus in late January. 04/11/18. Seen by Dr. Sifuentes. The patient does not report any new acute issues regarding her chronic left lateral malleolus surgical wound and she's tolerating NPWT with the SNAP wound vac without difficulty. 04/08/18. Seen by Dr. Sifuentes. The patient does not report any new acute issues regarding her chronic left lateral malleolus surgical wound and she's tolerating NPWT with the SNAP wound vac without difficulty. 04/04/18. Seen by Dr. Sifuentes. The patient continues to report pain associated with the chronic left lateral malleolus surgical wound despite the fact we discontinued NPWT at her last visit. Her wound culture grew only yeast and Diptheroids. 04/01/2018. Seen by Dr. Sifuentes. The patient continues to report pain associated with the chronic left lateral malleolus surgical wound. She does not report significant drainage from the site and has tolerated negative pressure wound therapy. She is not currently on antibiotics and has no other acute complaints today. 03/28/18. Seen by Dr. Sifuentes. The patient does not report significant pain nor drainage associated chronic left lateral malleolus surgical wound since her last visit and she's tolerating NPWT with the SNAP wound vac without difficulty. 03/25/18. Seen by Dr. Sifuentes. The patient continues to report pain throughout the midfoot and dorsum of the left foot that limits her ability to walk to only a couple of minutes at a time. She does not report any changes regarding the left lateral ankle surgical wound and is tolerating negative pressure wound therapy without difficulty. She's also not currently on oral antibiotics. 03/18/18. Seen by Dr. Sifuentes. The patient reports intermittent pain associated with the left lateral ankle however shoes are report increased drainage from the lateral malleolus surgical wound since her last visit. She is also tolerating negative pressure wound therapy without difficulty. 03/11/18. Seen by Dr Sifuentes.The patient reports some intermittent pain in the left lateral ankle when bearing weight but does not report significant drainage associated with the left lateral malleolus surgical wound since her last visit. She was changed from ciprofloxacin to doxycycline based on the recent culture growing a resistant coag negative staph organism. She does not report adverse side effects, fevers, or other acute issues today. 03/04/18. Seen by Dr. Sifuentes. The patient does not report significant pain nor drainage associated chronic left lateral malleolus surgical wound since her last visit. She continues on ciprofloxacin for chronic osteomyelitis also without reported adverse side effects. 02/25/18. Seen by Dr. Sifuentes. 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 She saw Dr. John last week and will start to use a bone stimulator to help heal the pathologic fracture. She does not report significant drainage associated with the left lateral malleolus surgical wound. 02/18/18. Seen by Dr. Sifuentes. The patient reports ongoing, but decreasing, pain associated with the left lateral malleolus surgical wound and she continues on ciprofloxacin and Flagy for chronic osteomyelitis without reporting adverse side effects. She'll see her surgeon, Dr. John, this . 02/14/18. Seen by Dr. Sifuentes. The patient reports decreased pain associated with the left lateral malleolus surgical wound and staff report only a moderate amount of drainage on the ROMEL wound vac dressing. She continues on cipro and Flagyl for chronic osteomyelitis and does not report adverse side effects or feeling unwell in general. 02/11/18. Seen by Dr. Sifuentes. The patient continues to report some persistent pain associated with the chronic left lateral malleolus surgical wound since her last visit. She does not report increased drainage however and is scheduled to see Dr. John, her orthopedic surgeon, next Saturday. She continues on ciprofloxacin and Flagyl as well and her surgery was a deep bone debridement to address the chronic osteomyelitis of the malleolus. 02/07/18. Seen by Dr. Sifuentes. 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 John. She reports some persistent discomfort at the wound site and is now on ciprofloxacin and Flagyl. Culture results of the execised bone are not yet available and the patient does not report any adverse side effects from the antibiotics, fevers, nor feeling unwell. 11/27/17. Seen by Dr. Sifuentes. The patient does not report pain associated with the chronic left lateral malleolus ulcer however she does describe diffuse pain throughout the lateral aspect of the foot and heel. She states this has been present for 6 weeks however has not raised the issue at our clinic until last week. She was seen by her primary care provider who subsequently ordered an MRI that revealed a nondisplaced fracture of the calcaneus. The MRI did mention also that the chronic osteomyelitis of the lateral malleolus appears to have improved from the previous imaging. 11/06/17. Seen by Dr. Sifuentes. The patient does not report significant pain or drainage associated with the chronic left lateral malleolar nonpressure ulcers since her last visit. She stop using a dressing due to pain and feels this has resolved in the interim. She's also asked that I look at a finger on her right hand that's been slow to heal since her dog scratched her a few weeks ago. She does not report pain at the site but states it's been draining a bit. 10/23/17. Seen by Dr. Sifuentes. The patient reports some persistent and modest pain associated with chronic left lateral malleolar nonpressure ulcer since her last visit. Does not report increased drainage and has been applying topical gentamicin to treat the recurrent cognitive staph wound infection. 10/02/17. The patient reports some intermittent pain associated with chronic left lateral malleolar nonpressure ulcer since her last visit however does not report increased drainage. 09/10/17. Seen by Shon Barlow PA-C. The patient reports no increase in drainage from her left lateral malleolar ulcer. She continues to abstain from smoking. 08/20/17. Seen by Dr. Sifuentes. The patient does not report significant pain or drainage associated with the chronic left lateral malleolar nonpressure ulcers since her last visit. She applying OTC topical antibiotic as prescribed to treat a recurrent wound infection noted at her last visit. 08/06/17. Seen by Dr. Sifuentes. The patient does not report significant pain or drainage associated with the chronic left lateral malleolar nonpressure ulcers since her last visit. 07/16/17. Seen by Dr. Sifuentes. The patient does not report pain or significant drainage associated with the chronic left lateral malleolar nonpressure ulcers since her last visit. 07/09/17. Seen by Dr. Sifuentes. The patient reports some intermittent pain associated with chronic left lateral malleolar nonpressure ulcer since her last visit however does not report increased drainage. 06/27/17. Seen by Dr. Sifuentes. The patient does not report pain or significant drainage associated with the chronic left lateral malleolar ulcer since her last visit. She feels her previously reported symptoms have improved since starting on levofloxacin for the polymicrobial wound culture following her last visit. 06/20/17. Seen by Dr. Sifuentes. The patient reports some burning associated with the left lateral chronic malleoli are not pressure ulcer. Her wound culture grew stenotrophomonas , enterococcus, and a coag-negative staph. She started on levofloxacin for this to be taken around her dialysis schedule. She does not report fevers or feeling unwell. 06/13/17. Seen by Shon Barlow PA-C. The patient reports that the steri-strips that were used to reduce wound tension were painful and she removed them. Her ulcer at that time grew E.coli which she has finished her antibiotic treatment for. 05/30/17. Seen by Dr. Sifuentes. The patient reports increased pain and drainage associated with the chronic left lateral malleolar ulcer over the past few days. She continues on dialysis and is scheduled to have cataract surgery later this week. She does not report fevers or feeling unwell and is not currently on antibiotics. 04/18/17. Seen by Dr. Sifuentes. The patient does not report pain or significant drainage the chronic left lateral malleolar ulcer over the past week. 03/28/17. Seen by Dr. Sifuentes. The patient does not report significant drainage or pain associated with the chronic left lateral malleolar non-pressure ulcer since her last visit. 03/07/17. Seen by Dr. Sifuentes. The patient does not report significant drainage or pain associated with the chronic left lateral malleolar non-pressure ulcer since her last visit. 02/14/17. Seen by Dr. Sifuentes. The patient feels the drainage from the chronic left lateral malleolar non-pressure ulcer noted at the last visit has decreased. Her wound culture grew Enterococcus and Enterobacter species however she did not tolerate her ciprofloxacin due to GI upset and stopped taking it after the few couple of doses. 02/05/17. Seen by Dr. Sifuentes. The patient does not report increased pain or drainage associated with chronic left lateral malleolar nonpressure ulcers since her last visit. 01/10/17. Seen by Dr. Sifuentes. The patient reports no increase in pain or significant drainage associated with the chronic left lateral malleolar nonpressure ulcer since her last visit. 12/20/16. Seen by Dr. Sifuentes. The patient does not report drainage associated with the chronic left lateral malleolus ulcer since her last visit. 11/29/16. Seen by Dr. Sifuentes. The patient does not report significant drainage associated with the chronic left lateral malleolus ulcer since her last visit. 11/08/16. Seen by Dr. Sifuentes. The patient does not report pain or significant drainage associated with the chronic left lateral malleolus ulcer since her last visit. 10/18/16 Seen by Shon Barlow PA-C. The patient does not report any change in pain or drainage from her chronic left lateral malleolar ulcer since her last evaluation. 10/04/16. Seen by Dr. Sifuentes. The patient does not report pain or significant drainage associated with the chronic left lateral malleolus ulcer. She continues to apply gentamicin cream at each dressing change due to chronic and recurring infections at the ulcer site. 09/27/16. Seen by Dr. Sifuentes.The patient does not report significant drainage or pain associated with chronic left lateral malleolus on pressure ulcer since her last visit. She continues to apply topical gentamicin ointment for the chronic wound infection. 09/13/16. Seen by Dr. Sifuentes. The patient reports scant drainage and no pain associated with the chronic left lateral malleolar non-pressure ulcer and she's applying topical gentamicin daily to treat the recent polymicrobial wound infection as recommended. 09/04/16 Seen by Shon Barlow PA-C. The patient reports minimal drainage and she is attempting to offload the ulcer area when she sleeps using a Van Tassell-saver ankle protector. 08/30/16. Seen by Dr. Sifuentes. The patient reports increased pain and drainage associated with the chronic left lateral malleolr non-pressure ulcer over the past week but she does not report fevers or feeling unwell. Her wound culture from the last visit grew Enterobacter, E. coli, and a coag negative Staph and she started taking Bactrim and applying topical gentamicin yesterday. She's on a 1/2 dose of Bactrim due to her end stage renal disease. 08/23/16. Seen by Dr. Sifuentes. The patient reports some increased drainage on her dressing covering the chronic left lateral malleolar non-pressure ulcer. She does no report pain however nor fevers or feeling unwell. 08/09/16. Seen by Dr. Sifuentes. The patient does not report drainage or pain associated with the chronic left lateral malleolar ulcer. 07/26/16. Seen by Dr. Sifuentes. The patient does not report drainage or pain associated with the chronic left lateral malleolar ulcer since her last visit. 07/11/16. Seen by Dr. Sifuentes. The patient does not report drainage or pain associated with the chronic left lateral malleolar ulcer since her visit last week. 06/21/16 Seen by Shon Barlow PA-C. The patient reports no change in drainage from her left lateral malleolus ulcer. 06/14/16. Seen by Dr. Sifuentes. The patient reportedly minimal drainage associated with the chronic left lateral malleolus ulcer since her last visit. Her arterial Doppler of the left leg was remarkable. 06/07/16. Seen by Dr. Sifuentes. The patient does not report pain or drainage associated with the chronic left lateral malleolar ulcer over the past week. 05/31/16. Seen by Dr. Sifuentes. The patient does not report pain or drainage associated with chronic left lateral malleolus nonpressure ulcer over the past week. Of note, her wound culture from the last visit grew a resistant coag negative Staph. She's not currently taking antibiotics. 05/24/[address] Sifuentes. The patient does not report increased pain or drainage associated with the chronic left lateral malleolar non-pressure ulcer over the past week. 05/17/[address] Sifuetnes. The patient does not report pain associated with the chronic left lateral malleolar non-pressure ulcer over the past week and there's only a scant amount of drainage on her dressing today. 05/10/[address] Sifuentes. The patient does not report pain or drainage associated with the chronic left lateral malleolar ulcer or associated underlying malleolar chronic osteomyelitis over the past week. Of note, she had another Epifix skin substitute placed last week. 05/03/[address] Sifuentes. The patient does not report pain or drainage associated with the left lateral malleolar non-pressure ulcer over the past week and she's tolerating HBOT, which is treating associated underlying chronic osteomyelitis, without reporting any issues. 04/26/16 Seen by Shon Barlow PA-C. The patient reports no noted change in her chronic left lateral malleolar ulcer since her last evaluation. 04/19/[address] Sifuentes. The patient does not report pain or drainage associated with the chronic left lateral malleolar non-pressure ulcer nor underlying chronic osteomyelitis. She continues with HBOT but has completed an 8 week course of IV vancomycin. 04/12/[address] Sifuentes. The patient does not report drainage or pain associated with her chronic left lateral malleolar ulcer and underlying chronic osteomyelitis. She' s received 3 placements of Epifix recently and continues with HBOT in addition to an extended course of IV vancomycin. Her wound culture from 04/05/16 showed no organisms and had no growth. 04/05/[address] Sifuentes. The patient does not report pain or drainage from her chronic left lateral malleolar non-pressure ulcer and she continues on IV vancomycin for chronic osteomyelitis of the underlying malleolus. 03/29/[address] Sifuentes. The patient does not report pain or drainage associated with her chronic left lateral malleolar non-pressure ulcer and she continues on IV vancomycin and hyperbaric therapy for underlying chronic osteomyelitis of the malleolus. 03/22/[address] Sifuentes. The patient does not report pain or drainage associated with the chronic left lateral malleolar non-pressure ulcer. 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 She also states she's no longer smoking. 03/06/16 Seen by Shon Barlow PA-C. The patient is changing her dressing daily, as instructed but now reports decreased drainage from her ulcer. 03/01/[address] Sifuentes. The patient does not report pain or significant drainage associated with her chronic left lateral malleolar ulcer and she continues on IV vancomycin and hyperbaric oxygen therapy for underlying chronic osteomyelitis of the lateral malleolus. 02/14/16 Seen by Shon Barlow PA-C. The patient feels her left malleolar ulcer with underlying chronic osteomyelitis may be larger and has been draining more since her last evaluation. She continues on doxycycline and her ulcer culture grew a staph Spp. and E Faecalis both of which were highly resistant. She reports that she is only smoking a few cigarettes per day. Her dialysis continues at 2 times weekly. Her COPD is stable on current medications with no recent exacerbations. 02/08/[address] Sifuentes. The patient does not report pain associated with the chronic left lateral malleolar non-pressure ulcer however the staff report brown drainage on her dressing today. She continues on doxycycline for a recent polymicrobial resistant Staph culture and her recent bone scan on 01/26/16 show's persistent left lateral malleolar osteomyelitis while reporting interval improvement from her previous scan on 09/29/15. She does not report fevers or feeling unwell and she also reports that she's significantly reduced her smoking over the past week. 01/26/[address] Sifuentes. The patient does not report pain associated with the chronic left lateral malleolar non-pressure ulcer nor does she report any problems with the wound vac. She continues on doxycycline without reporting adverse side effects and her bone scan shows persistence of osteomyelitis beneath the ulcer with interval improvement from that of 09/29/16. 01/19/[address] Sifuentes. The patient does not report pain associated with the chronic left lateral malleolar non-pressure ulcer nor any problems with the wound vac. She continues on doxycycline also for a resistant coag neg Staph culture and does not report adverse side effects. 01/12/[address] Sifuentes. The patient does not report pain or significant drainage associated with the chronic left lateral malleolar ulcer. She also is now on doxycycline for a resistant coag neg Staph culture from 12/28/15 and does not report adverse effects. 01/04/[address] Sifuentes. The patient reports some increased pain just proximal to the chronic left lateral malleolar non-pressure ulcer. She's currently using only topical gentamicin to treat an intermediately resistant coag negative Staph culture from the ulcer. 12/28/[address] Sifuentes. The patient does not report drainage and reports only minimal pain associated with the chronic left lateral malleolar ulcer. Her wound culture grew only resistant Staph epi. 12/21/[address] Sifuentes. The patient does not report pain or drainage associated with the chronic left lateral malleolar ulcer and she's continues off of antibiotics. 12/07/2015 Seen by Shon Barlow PA-C. The patient's moxifloxacin has now finished and she does not report any change in left ankle pain or drainage. 11/30/2015 Seen by Shon Barlow PA-C. The patient's moxifloxacin prescription continues for 1 more week. She is currently not undergoing adjunctive hyperbaric oxygen treatments. She reports no change in ulcer pain. 11/25/[address] Sifuentes. The patient does not report any new issues regarding her chronic left lateral malleolar non-pressure ulcer however the staff report some moderate maceration. 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 11/15/15 Seen by Shon Barlow PA-C. The patient will complete her last Vancomycin infusion tomorrow and will then discontinue this antibiotic and discontinue 3x weekly dialysis and resume twice weekly dialysis. Her ulcer, overlying chronic osteomyelitis has been draining minimally and has not been reportedly painful since her last evaluation. She is now weaned off of citalopram (which had interactions with Moxifloxacin, which we originally wanted to prescribe) and she reports no depression symptoms. 11/08/15 Seen by Shon Barlow PA-C. The patient does not report increased pain or drainage from her ulcer with underlying osteomyelitis. She continues on Vancomycin. 11/03/[address] Sifuentes. The patient does not report pain and only scant drainage from the chronic left lateral malleolar ulcer and underlying chronic osteomyelitis. She's on day 24 of IV vancomycin for the Enterococcus positive wound culture and HBOT for chronic osteomyelitis. 10/27/[address] Sifuentes. The patient reports minimal discomfort and scant drainage from the left lateral malleolar ulcer and underlying chronic osteomyelitis. She continues on IV vancomycin for this problem as well as HBOT without reporting problems. 10/19/15 Seen by Shon Barlow PA-C. The patient reports a stable appearance of her ulcer. She is going to begin 3x weekly dialysis due to the administration of Vancomycin. When she completes her Vancomycin course she will resume twice weekly dialysis. 10/12/[address] Sifuentes. The patient states she's had 5 episodes of diarrhea this morning and complains of some mild left sided abdominal pain. She's been started on IV vancomycin for the left lateral malleolar ulcer cultured for Enterococcus and is under the care of her repairer sash and door, Dr. Lorenzana, regarding dosing around her dialysis. She does not report drainage nor significant discomfort associated with ulcer nor underlying chronic osteomyelitis of the malleolus and continues with HBOT as adjuvant therapy without reporting problems. 10/06/[address] Sifuentes. The patient continues to report some discomfort regarding her left lateral malleolar ulcer and underlying chronic osteomyelitis. She's seen Dr. Silva, her PCP, whose started a taper of her Celexa over the next 6 weeks due to a potentially serious interaction with fluorquinolone antibiotics which could eventually be useful in treating the Enterococcus faecalis positive wound culture from 09/28/15. She does not report fever or other acute issues currently and has been off of antibiotics for the past week due to the limited options based on sensitivities. She's continued HBOT over this period while we' ve attempted to find an appropriate antibiotic solution. Of note, her bone scan from 09/29/15 confirms persistence of chronic osteomyelitis also. 09/14/15 Seen by Shon Barlow PA-C. The patient reports no difficulty with her doxycycline or HBOT treatments. Her ankle ulcer continues to drain and she has not observed much change. 09/07/[address] Sifuentes. The patient does not report significant pain or drainage associated with her left lateral malleolar ulcer and she continues on doxycycline for associated chronic osteomyelitis without reporting adverse side effects. She's also tolerating HBOT without reporting any problems. 08/24/[address] Sifuentes. The patient reports increased pain and redness in the periwound area of the left lateral malleolar ulcer that overlies the site of chronic osteomyelitis. She does not report fever, chills, sweats, or increased drainage. Her wound culture at the last visit was unremarkable despite being off of antibiotics. She's been approved for HBOT and currently does not report acute URI symptoms but states she has some chronic sinus congestion. Of note, her CXR was consistent with COPD. 08/17/[address] Sifuentes. The patient states her left lateral malleous is more tender than last week with some radiation of pain to the mid foot. She does not report increased 08/04/[address] Sifuentes. The patient attend the ER following our last visit and was sent to [facility] due to acute on chronic renal failure. She'd apparently become dehydrated due to nausea and vomiting and was dx with a small bowel obstruction. Of note, I'd contacted her to discontinue Bactrim, which she'd been on for about a month for left lateral malleolar osteomyelitis, due to her Cr increasing. This has since returned to it's baseline and she's currently not on antibiotics. She does not report increased pain, swelling or drainage associated with the overlying ulcer. She's also to complete the 2nd phase of her bone scan checking for persistence of osteomyelitis later today. 07/28/[address] Sifuentes. The patient does not report drainage or pain associated with the left lateral malleolar ulcer. She continues on an extended course of Bactrim for possible osteomyelitis which is concerning based on her history of chronic kidney disease requiring dialysis. She notes she still produces adequate urine but has not had her renal function checked since 07/05/15 when her Cr was 2.7. 07/20/[address] Sifuentes. The patient does not report any new issues such as pain or increased drainage from the left lateral malleolar ulcer. She continues on Bactrim for possible chronic osteomyelitis of the lateral malleolus. 07/13/[address] Sifuentes. The patient's new to our clinic and has been referred by Dr. Silva for a non-healing surgical wound following excision of a skin cancer ( type unconfirmed) at the left lateral malleolus. This was reportedly performed about 2 months ago and she's been on an extended course of Bactrim for the past month with some resolution in drainage and surrounding erythema. She has an MRI and bone scan of the site from the end of April that both raise suspicion for osteomyelities however. Otherwise her medical history is complicated by chronic renal failure requiring dialysis and a long history of smoking. She does not have a history of diabetes nor does she report rest pain, claudication, fever, sweats, or pain at the ulcer site. 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, Substance Abuse - none Past Medical History This information was obtained from the patient Patient has a medical history of: Depression Carpal tunnel Chronic renal Stage V (Cr 2.7 on 07/05/15; dialysis M, F) Unilateral nephrectomy Allergic rhinitis Hypertension Insomnia Lumbago Osteoporosis Peptic Ulcer Small bowel obstruction (recurrent) Chronic osteomyelitis (left lateral malleolus; dx on MRI and bone scan April 2015 ; reconfirmed on repeat bone scan 07/28/15; persistent but improved on 01/26/16 bone scan) COPD Chronic ulcer (left lateral malleolus) Surgical History This information was obtained from the patient Patient has a surgical history of: tonsilectomy (1948) carpal tunnel (1979) hysterectomy (1980) tumor removal abdomen benign (1995) hernia repair (1999) Mohs left ankle (2014) right kidney removed (cancer) (8 years ago) dental implants (2011) lung surgery to remove benign mass (2010) Bone graft in mouth Cataract surgery (left eye) Surgical debridement of ulcer/bone of left lateral ankle FIstula for dialysis (April 29) Complaints and Symptoms This information was obtained from the patient Patient complains of: General Notes: I have reviewed and concur with the Review of Systems and Past Family Social History documents completed by the clinician, I have reviewed and concur with the Wound Assessment document completed by the clinician Ear/Nose/Mouth/Throat: Hearing Loss / Aid Integumentary (Hair/Skin/Nails): Open Sore Prior Wound History: Drainage, Erythema, Pain Patient denies complaints or symptoms related to: Cardiovascular (Central/Peripheral): Intermittent Claudication, Lower extremity (leg) resting pain, Lower extremity (leg) swelling Constitutional Symptoms (General Health): Chills, Fever Gastrointestinal (GI): Nausea / Vomiting, Stomach/abdominal pain Hematologic/Lymphatic: Bleeding / Clotting Disorders, Bleeding Tendency Musculoskeletal: Deformities, Joint Swelling Neurological: Abnormal Gait, Loss of Protective Sensation Prior Wound History: Bleeding, Malodor Psychiatric: Memory Loss Respiratory: Oxygen Use, Shortness of Breath OBJECTIVE Constitutional Vital signs reviewed and noted. Well developed. Alert. Clean appearing.. Height/ Length: 60 in (152.4 cm), Weight: 97.7 lbs (44.41 kgs), BMI: 19.1, Temperature: 98.7 ?F ( 37.06 ?C), Pulse: 71 bpm, Respiratory Rate: 18 breaths/min, Blood Pressure: 112/66 mmHg, Pulse Oximetry: 99 %. Ears, Nose, Mouth, and Throat: Mild hearing deficit. Respiratory: No respiratory distress. Even respirations and without use of accessory muscles.. Cardiovascular: Affected extremity exhibits no peripheral edema or cyanosis, is warm, and is well perfused. Capillary refill is less than 2 seconds. Gastrointestinal (GI): Non-obese. Nondistended.. Musculoskeletal: Left lateral malleolus tender along posterior margin of wound. Integumentary (Hair, Skin) No periwound erythema, warmth, or significant drainage. No periwound rashes appreciated or noted otherwise.. Refer to appropriate clinician wound documentation for this visit; left lateral malleolus wound extends to subcut with base partially covered with pink granulation, remainder fibrin and slough. Maceration present in the periwound area. Wound #2 Left, Lateral Ankle is an acute Full Thickness Surgical Wound and has received a status of Not Healed. Subsequent wound encounter measurements are 1.1cm length x 0.2cm width x 0.4cm depth, with an area of 0.22 sq cm and a volume of 0.088 cubic cm. No tunneling has been noted. No sinus tract has been noted. No undermining has been noted. There is a small amount of serous drainage noted which has no odor. The patient reports a wound pain of level 4/10. The wound margin is attached. Wound bed has No epithelialization, No eschar, Yes slough, No granulation. The periwound skin color is normal. The periwound skin exhibited: Edema, Maceration. The periwound skin did not exhibit: Brawny Induration, Excoriation, Induration, Callus, Crepitus, Fluctuance, Friable, Rash, Dry/Scaly, Moist. The temperature of the periwound skin is WNL. Periwound skin does not exhibit signs or symptoms of infection. Local Pulse is Palpable. Neurological: Cranial nerves grossly intact with symmetric function normal by informal observation.. ASSESSMENT Active Problems ICD-10 (Encounter Diagnosis) L97.322 - Non-pressure chronic ulcer of left ankle with fat layer exposed (Encounter Diagnosis) T81.31XD - Disruption of external operation (surgical) wound, not elsewhere classified, subsequent encounter (Encounter Diagnosis) B95.2 - Enterococcus as the cause of diseases classified elsewhere (Encounter Diagnosis) M25.572 - Pain in left ankle and joints of left foot PROCEDURES Wound #2 Wound #2 (Surgical Wound) is located on the left, lateral ankle. A skin/ subcutaneous tissue level surgical debridement with a total area debrided of 0.22 sq cm was performed by Isidoro Sifuentes MD. Subcutaneous was removed along with devitalized tissue: slough. The following instrument(s) were used: forceps. Pain control was achieved using 4% Lido. A time out was conducted prior to the start of the procedure. A minimal amount of bleeding was controlled with pressure. The procedure was tolerated well with a pain level of 5 throughout and a pain level of 2 following the procedure. Post Debridement Measurements: 1.1cm length x 0.2cm width x 0.4cm depth; with an area of 0.22 sq cm and a volume of 0.088 cubic cm; Wound #2 (Surgical Wound) is located on the left, lateral ankle. A Disposable Wound Vac Application < 50 Sq Cm procedure was performed for the lower left extremity by Isidoro Sifuentes MD. A time out was conducted prior to the start of the procedure. The procedure was tolerated well. General Notes: SNAP 15x15 dressing, we were out of 10x10 dressings and 125mmHg canister applied. Additional Information Muscle fascia or bone removed and sent to pathology?: No PLAN Wound Orders: Wound #2 Left, Lateral Ankle Anesthetic Topical Xylocaine to wound bed. - In clinic only. Cleanser Cleanse Wound: - Normal saline and gauze. May Shower. - Cover with cast protector. Dressings Change Dressing: - At next visit. SNAP Dressing - [id number] dressing, 125mmHg canister. Please observe to make sure the snap is not in the red. Additional Orders: Follow-Up Appointments Return Appointment: - - Saturday and Saturday for SNAP dressing change. Other information: If you develop fever, chills, increased pain, drainage, redness or swelling please call our office. If after hours, respond to the ER. Should you experience any significant changes in your wound(s) or have any questions regarding your home care instructions please contact the wound center @ [phone]. If after hours, contact your primary care physician or go to the hospital emergency room. Scribing Attestation I attest, as the nurse, that I scribed these orders for the physician. General Notes: IV antibiotics during dialysis. I've reviewed the clinician's documentation and agree with the evaluation and plan as written. In addition the patient's wound demonstrates evidence of non-viable devitalized tissue which will continue to benefit from sharp debridement to help promote granulation and expedite healing. Negative pressure wound therapy will be utilized to facilitate granulation and removal of exudate and infectious material with the goal of expediting wound healing. Also, if there's evidence of refractory chronic osteomyelitis in the left lateral malleolus we'll continue treating with IV vancomycin and consider restarting hyperbaric oxygen therapy. Otherwise the wound continues to make modest progress in terms of size and depth. Electronic Signature(s) Signed By: Date: Isidoro Sifuentes MD 05/14/2018 08:47:14 Entered By: Isidoro Sifuentes on 05/13/2018 12:09:19
== END ==
PROVIDERS: PCP Family Medicine; Visit Provider Internal Medicine
DX: T81.31XA Disruption of external operation (surgical) wound, not elsewhere classified, initial encounter (principal); L97.322 Non-pressure chronic ulcer of left ankle with fat layer exposed; B95.2 Enterococcus as the cause of diseases classified elsewhere; M25.572 Pain in left ankle and joints of left foot
CPT/HCPCS: 11042; 97607

== ENCOUNTER → 2018-05-13 09:38 | Outpatient (CLI) | payer MEDICARE, SELFPAY ==
--- NOTE | 2018-05-13 | DI.MRI.S_ITS ---
PROCEDURE: MR ANKLE LT WO CON INDICATIONS: BILATERAL CALCANEOUS STRESS FRACTURES TECHNIQUE: Noncontrast sagittal T1 spin echo and T2 fast spin echo with fat saturation, axial proton density fast spin echo and T2 fast spin echo with fat saturation, coronal T1 spin echo and T2 fast spin echo with fat saturation through the ankle/hindfoot. COMPARISON: [facility], MR, ANKLE WITHOUT CONTRAST, 12/25/2017, 8:44. [facility], MR, ANKLE WITHOUT CONTRAST, 11/19/2017, 8:32. [facility], CR, ANKLE 3 VIEWS LEFT, 01/17/2016, 10:06. [facility], MR, MR ANKLE RT WO CON, 05/13/2018, 9:59. FINDINGS: Image quality: Excellent. Bones and joints: There is redemonstration of calcaneal fracture line, with no loss of calcaneal height. There is associated mild marrow edema which is overall decreased since the prior study. No hindfoot coalitions. No osteochondral injuries of the talar dome. There is irregularity of the lateral cortex of the distal fibula/lateral malleolus, which is new since prior study. Overlying skin signal changes. Circumferential and dorsal hindfoot and midfoot subcutaneous edema and soft tissue swelling. Medial structures: The posterior tibialis, flexor digitorum longus, and flexor hallucis longus tendons are intact. Low fluid adjacent to the posterior tibialis and flexor digitorum longus tendons. The posterior tibial neurovascular bundle appears normal within the tarsal tunnel, without extrinsic mass effect. The deep layer (anterior and posterior tibiotalar ligaments) and superficial layer (tibionavicular, tibiospring, and tibiocalcaneal ligaments) of the deltoid ligament appear normal. The spring ligament components (superomedial calcaneonavicular, medioplantar oblique calcaneonavicular, and inferoplantar longitudinal ligaments) are intact. Lateral structures: The anterior talofibular ligament is grossly intact although not well visualized. The calcaneofibular, and posterior talofibular ligaments appear intact. More superiorly, the anterior and posterior tibiofibular ligaments appear intact, as is the intermalleolar ligament. The tibiofibular syndesmosis is normal in width at 2 mm or less. The peroneus longus and brevis tendons demonstrate normal location and morphology. Adjacent bony peroneal tubercle and retrotrochlear prominence are normal in size. The sinus tarsi demonstrates normal fatty signal, without edema, fibrosis, or cyst formation. Visualized sinus tarsi components (cervical ligament, interosseous talocalcaneal ligament, roots of the inferior extensor retinaculum) appear normal. The calcaneonavicular and calcaneocuboid components of the bifurcate ligament appear intact. The dorsal calcaneocuboid ligament appears intact. Anterior structures: The tibialis anterior, extensor hallucis longus, and extensor digitorum longus tendons appear intact. The dorsal talonavicular ligament appears intact. Posterior and plantar structures: Achilles tendon is intact. Medial and lateral bands of the plantar fascia are of normal thickness. IMPRESSION: Irregularity of the lateral cortex of the distal fibula/lateral malleolus, suspicious for osteomyelitis. Recommend clinical correlation and with surgical history. If necessary consider contrast-enhanced MRI. Additionally, dedicated ankle radiographs would also be helpful. Redemonstration of nondisplaced calcaneal fracture with decreased marrow edema Mild posterior tibialis and flexor digitorum longus tenosynovitis. Dictated by: Abebe Messina M.D. on 05/13/2018 at 12:38 Approved by: Abebe Messina M.D. on 05/13/2018 at 12:52
--- NOTE | 2018-05-13 | DI.MRI.S_ITS ---
PROCEDURE: MR ANKLE RT WO CON INDICATIONS: BILATERAL CALCANEOUS STRESS FRACTURES TECHNIQUE: Noncontrast sagittal T1 spin echo and T2 fast spin echo with fat saturation, axial proton density fast spin echo and T2 fast spin echo with fat saturation, coronal T1 spin echo and T2 fast spin echo with fat saturation through the ankle/hindfoot. COMPARISON: [facility], MR, MR ANKLE LT WO CON, 05/13/2018, 10:25. [facility], MR, ANKLE WITHOUT CONTRAST, 02/04/2018, 7:10. [facility], MR, ANKLE WITHOUT CONTRAST, 12/25/2017, 8:44. [facility], MR, ANKLE WITHOUT CONTRAST, 11/19/2017, 8:32. [facility], MR, ANKLE WITHOUT CONTRAST, 05/06/2015, 8:49. FINDINGS: Image quality: Diagnostic. Bones and joints: Mild marrow edema is identified involving the calcaneus, which is less prominent on the current examination. There are 2 stress fracture lines identified involving the calcaneal tuberosity, best appreciated on the superior aspect of the calcaneal tuberosity (image 10, series 3), which are new since the previous study. There also appears to be a stress fracture evident involving the medial margin of the cuboid (image 10, series 3) and a stress fracture involving the base of the 2nd metatarsal. No additional stress fractures are evident. There is moderate marrow edema involving the 2nd metatarsal, which appears to be new since the previous study. Additionally, the edema and a subtle stress fracture involving the cuboid also is new. No displaced fractures or dislocations are evident. No suspicious osseous lesions are present. No significant joint effusions are identified. There may be mild degenerative changes through the mid foot. Soft tissues: There is moderate soft tissue edema identified overlying the mid foot and hindfoot region. No drainable or loculated fluid collection is evident. No significant joint effusions are identified. The deltoid ligament and spring ligament are intact and within normal limits. The tibialis posterior, flexor hallucis longus, and flexor digitorum longus tendons appear to be intact. Fluid is contained within their corresponding tendon sheaths. The posterior tibial nerve through the region of the tarsal tunnel appears to be within normal limits. The anterior and posterior distal tibiofibular ligaments are intact. There is thinning of the anterior talofibular ligament, which may be related to previous injury. The posterior talofibular ligament and calcaneofibular ligament are intact. There is slight heterogeneity involving the peroneus brevis tendon, demonstrating slight increased signal at the tip of the lateral malleolus. The peroneus longus tendon is within normal limits. There is increased signal identified within the sinus tarsi. There is slight thickening involving the Achilles tendon without significant tethering. The plantar fascia is intact and within normal limits. No significant atrophy is evident involving the intrinsic muscles of the imaged ankle. IMPRESSION: 1. Nondisplaced calcaneal stress fractures may be new since the previous exam. The degree of marrow edema is less prominent. 2. New stress fractures are present involving the metatarsal base and medial cuboid. 3. Subcutaneous edema about the midfoot and hindfoot. 4. Mild flexor tendon tenosynovitis of the ankle. No significant adenopathy is appreciated. 5. Mild distal Achilles tendinopathy. 6. Mild peroneus brevis tendinopathy. Dictated by: Giovanny Nunez M.D. on 05/13/2018 at 16:36 Approved by: Giovanny Nunez M.D. on 05/13/2018 at 16:43
== END ==
PROVIDERS: PCP Family Medicine; Visit Provider Orthopaedic Surgery Foot and Ankle Surgery
DX: M84.375A Stress fracture, left foot, initial encounter for fracture (principal); M84.374A Stress fracture, right foot, initial encounter for fracture; T81.31XA Disruption of external operation (surgical) wound, not elsewhere classified, initial encounter; L97.322 Non-pressure chronic ulcer of left ankle with fat layer exposed; B95.2 Enterococcus as the cause of diseases classified elsewhere; M25.572 Pain in left ankle and joints of left foot
CPT/HCPCS: 11042; 73721; 97607

== ENCOUNTER → 2018-05-16 11:13 | Outpatient (CLI) | payer MEDICARE, SELFPAY ==
--- NOTE | 2018-05-16 | OV.WND_ITS ---
Progress Note Details Patient Name: Kristine Damon Patient Number: [id number] PatientPatientDate: 05/16/2018 Clinician: Cyn Gong Clinician Cosigner: Nicolette Thompson Physician / Rn Call Center: [facility] Sifuentes SUBJECTIVE Chief Complaint This information was obtained from the patient Wound to left lateral ankle. Allergies penicillin, prednisone, cephalexin, codeine, acetaminophen, hydrocodone, ketorolac HPI This information was obtained from the patient 05/16/18. Seen by Dr. Sifuentes. The patient does not report increased pain or drainage associated with the chronic left lateral malleolus surgical wound since her last visit and she's tolerating NPWT without difficulty. She continues on IV vancomycin during dialysis for the recent Enterococcus positive wound culture also. Her MRI which was performed to re-evaluate the calcaneal stress fracture reports a cortical irregularity along the lateral malleolus that may represent osteomyelitis but must be considered in the context of her surgical debridement also. 05/13/18. Seen by Dr. Sifuentes. The patient reports continued pain in the left lateral malleolus posterior to the surgical wound and she has an MRI scheduled for this morning to evaluate the source of the pain. She also continues on IV vancomycin that's treating the recurrent Enterococcus positive culture and being infused during dialysis. She does not report fevers or feeling unwell otherwise and is tolerating negative pressure wound therapy without difficulty. 05/09/18. Seen by Shon Barlow PA-C. The patient continues on Vancomycin for her left malleolar wound infection which demonstrates stable drainage this week. 05/06/18. Seen by Shon Barlow PA-C. The patient reports stable drainage from her left malleolar wound and continues on Vancomycin to treat the Enterococcus infection of this wound. 05/02/18. Seen by Dr. Sifuentes. The patient reports improvement in the left foot pain and does not report increased drainage or other acute issues regarding the left lateral malleolus surgical wound that's being treated with negative pressure wound therapy. She's also continues on IV vancomycin during dialysis that's treating the recent Enterococcus positive wound culture. 04/29/18. Seen by Dr. Sifuentes. The patient reports improvement in the left foot pain over the past week and does not report increased drainage or other acute issues regarding the left lateral malleolus surgical wound that's being treated with negative pressure wound therapy. She's also now had 2 doses of IV vancomycin during dialysis this week that's treating the recent Enterococcus positive wound culture. 04/25/18. Seen by Dr. Sifuentes. The patient reports improvement in terms of pain associated with the chronic left lateral malleolus surgical wound since starting on IV vancomycin for the recently Enterococcus positive wound culture. She does not report adverse side effects and is receiving her antibiotics during dialysis. 04/22/18. Seen by Dr. Sifuentes. The patient reports some continued pain associated with the chronic left lateral malleolus surgical wound and she's been applying topical gentamicin to treat the recent Enterococcus positive wound culture. Her wound vac was discontinued last week also. Of note. she takes citalopram which complicates treating her wound infection with oral antibiotics and is also on dialysis for end stage renal disease and has received IV vancomycin without difficulty for her previous Enterococcus wound infections. 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 04/18/18. Seen by Dr. Sifuentes. The patient reports decreased pain associated with the chronic left lateral malleolus surgical wound over the past week since we held her wound vac. Her culture grew Enterococcus and she's not currently on antibiotics for this. Of note, her wound healing is complicated considerably by her end stage renal disease and being on dialysis and the wound is a result of deep bone debridement that was performed for chronic osteomyelitis of the malleolus. 04/15/18. Seen by Dr. Sifuentes. The patient continues to report persistent pain associated with the chronic left lateral malleolus surgical wound however she does not report increased drainage and has tolerated NPWT with the SNAP wound vac without difficulty. She' s now been off of antibiotics for the past month and underwent surgical bone debridement for chronic osteomyeylitis of the malleolus in late January. 04/11/18. Seen by Dr. Sifuentes. The patient does not report any new acute issues regarding her chronic left lateral malleolus surgical wound and she's tolerating NPWT with the SNAP wound vac without difficulty. 04/08/18. Seen by Dr. Sifuentes. The patient does not report any new acute issues regarding her chronic left lateral malleolus surgical wound and she's tolerating NPWT with the SNAP wound vac without difficulty. 04/04/18. Seen by Dr. Sifuentes. The patient continues to report pain associated with the chronic left lateral malleolus surgical wound despite the fact we discontinued NPWT at her last visit. Her wound culture grew only yeast and Diptheroids. 04/01/2018. Seen by Dr. Sifuentes. The patient continues to report pain associated with the chronic left lateral malleolus surgical wound. She does not report significant drainage from the site and has tolerated negative pressure wound therapy. She is not currently on antibiotics and has no other acute complaints today. 03/28/18. Seen by Dr. Sifuentes. The patient does not report significant pain nor drainage associated chronic left lateral malleolus surgical wound since her last visit and she's tolerating NPWT with the SNAP wound vac without difficulty. 03/25/18. Seen by Dr. Sifuentes. The patient continues to report pain throughout the midfoot and dorsum of the left foot that limits her ability to walk to only a couple of minutes at a time. She does not report any changes regarding the left lateral ankle surgical wound and is tolerating negative pressure wound therapy without difficulty. She's also not currently on oral antibiotics. 03/18/18. Seen by Dr. Sifuentes. The patient reports intermittent pain associated with the left lateral ankle however shoes are report increased drainage from the lateral malleolus surgical wound since her last visit. She is also tolerating negative pressure wound therapy without difficulty. 03/11/18. Seen by Dr Sifuentes.The patient reports some intermittent pain in the left lateral ankle when bearing weight but does not report significant drainage associated with the left lateral malleolus surgical wound since her last visit. She was changed from ciprofloxacin to doxycycline based on the recent culture growing a resistant coag negative staph organism. She does not report adverse side effects, fevers, or other acute issues today. 03/04/18. Seen by Dr. Sifuentes. The patient does not report significant pain nor drainage associated chronic left lateral malleolus surgical wound since her last visit. She continues on ciprofloxacin for chronic osteomyelitis also without reported adverse side effects. 02/25/18. Seen by Dr. Sifuentes. 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 She saw Dr. John last week and will start to use a bone stimulator to help heal the pathologic fracture. She does not report significant drainage associated with the left lateral malleolus surgical wound. 02/18/18. Seen by Dr. Sifuentes. The patient reports ongoing, but decreasing, pain associated with the left lateral malleolus surgical wound and she continues on ciprofloxacin and Flagy for chronic osteomyelitis without reporting adverse side effects. She'll see her surgeon, Dr. John, this . 02/14/18. Seen by Dr. Sifuentes. The patient reports decreased pain associated with the left lateral malleolus surgical wound and staff report only a moderate amount of drainage on the ROMEL wound vac dressing. She continues on cipro and Flagyl for chronic osteomyelitis and does not report adverse side effects or feeling unwell in general. 02/11/18. Seen by Dr. Sfiuentes. The patient continues to report some persistent pain associated with the chronic left lateral malleolus surgical wound since her last visit. She does not report increased drainage however and is scheduled to see Dr. John, her orthopedic surgeon, next Saturday. She continues on ciprofloxacin and Flagyl as well and her surgery was a deep bone debridement to address the chronic osteomyelitis of the malleolus. 02/07/18. Seen by Dr. Sifuentes. 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 John. She reports some persistent discomfort at the wound site and is now on ciprofloxacin and Flagyl. Culture results of the execised bone are not yet available and the patient does not report any adverse side effects from the antibiotics, fevers, nor feeling unwell. 11/27/17. Seen by Dr. Sifuentes. The patient does not report pain associated with the chronic left lateral malleolus ulcer however she does describe diffuse pain throughout the lateral aspect of the foot and heel. She states this has been present for 6 weeks however has not raised the issue at our clinic until last week. She was seen by her primary care provider who subsequently ordered an MRI that revealed a nondisplaced fracture of the calcaneus. The MRI did mention also that the chronic osteomyelitis of the lateral malleolus appears to have improved from the previous imaging. 11/06/17. Seen by Dr. Sifuentes. The patient does not report significant pain or drainage associated with the chronic left lateral malleolar nonpressure ulcers since her last visit. She stop using a dressing due to pain and feels this has resolved in the interim. She's also asked that I look at a finger on her right hand that's been slow to heal since her dog scratched her a few weeks ago. She does not report pain at the site but states it's been draining a bit. 10/23/17. Seen by Dr. Sifuentes. The patient reports some persistent and modest pain associated with chronic left lateral malleolar nonpressure ulcer since her last visit. Does not report increased drainage and has been applying topical gentamicin to treat the recurrent cognitive staph wound infection. 10/02/17. The patient reports some intermittent pain associated with chronic left lateral malleolar nonpressure ulcer since her last visit however does not report increased drainage. 09/10/17. Seen by Shon Barlow PA-C. The patient reports no increase in drainage from her left lateral malleolar ulcer. She continues to abstain from smoking. 08/20/17. Seen by Dr. Sifuentes. The patient does not report significant pain or drainage associated with the chronic left lateral malleolar nonpressure ulcers since her last visit. She applying OTC topical antibiotic as prescribed to treat a recurrent wound infection noted at her last visit. 08/06/17. Seen by Dr. Sifuentes. The patient does not report significant pain or drainage associated with the chronic left lateral malleolar nonpressure ulcers since her last visit. 07/16/17. Seen by Dr. Sifuentes. The patient does not report pain or significant drainage associated with the chronic left lateral malleolar nonpressure ulcers since her last visit. 07/09/17. Seen by Dr. Sifuentes. The patient reports some intermittent pain associated with chronic left lateral malleolar nonpressure ulcer since her last visit however does not report increased drainage. 06/27/17. Seen by Dr. Sifuentes. The patient does not report pain or significant drainage associated with the chronic left lateral malleolar ulcer since her last visit. She feels her previously reported symptoms have improved since starting on levofloxacin for the polymicrobial wound culture following her last visit. 06/20/17. Seen by Dr. Sifuentes. The patient reports some burning associated with the left lateral chronic malleoli are not pressure ulcer. Her wound culture grew stenotrophomonas , enterococcus, and a coag-negative staph. She started on levofloxacin for this to be taken around her dialysis schedule. She does not report fevers or feeling unwell. 06/13/17. Seen by Shon Barlow PA-C. The patient reports that the steri-strips that were used to reduce wound tension were painful and she removed them. Her ulcer at that time grew E.coli which she has finished her antibiotic treatment for. 05/30/17. Seen by Dr. Sifuentes. The patient reports increased pain and drainage associated with the chronic left lateral malleolar ulcer over the past few days. She continues on dialysis and is scheduled to have cataract surgery later this week. She does not report fevers or feeling unwell and is not currently on antibiotics. 04/18/17. Seen by Dr. Sifuentes. The patient does not report pain or significant drainage the chronic left lateral malleolar ulcer over the past week. 03/28/17. Seen by Dr. Sifuentes. The patient does not report significant drainage or pain associated with the chronic left lateral malleolar non-pressure ulcer since her last visit. 03/07/17. Seen by Dr. Sifuentes. The patient does not report significant drainage or pain associated with the chronic left lateral malleolar non-pressure ulcer since her last visit. 02/14/17. Seen by Dr. Sifuentes. The patient feels the drainage from the chronic left lateral malleolar non-pressure ulcer noted at the last visit has decreased. Her wound culture grew Enterococcus and Enterobacter species however she did not tolerate her ciprofloxacin due to GI upset and stopped taking it after the few couple of doses. 02/05/17. Seen by Dr. Sifuentes. The patient does not report increased pain or drainage associated with chronic left lateral malleolar nonpressure ulcers since her last visit. 01/10/17. Seen by Dr. Sifuentes. The patient reports no increase in pain or significant drainage associated with the chronic left lateral malleolar nonpressure ulcer since her last visit. 12/20/16. Seen by Dr. Sifuentes. The patient does not report drainage associated with the chronic left lateral malleolus ulcer since her last visit. 11/29/16. Seen by Dr. Sifuentes. The patient does not report significant drainage associated with the chronic left lateral malleolus ulcer since her last visit. 11/08/16. Seen by Dr. Sifuentes. The patient does not report pain or significant drainage associated with the chronic left lateral malleolus ulcer since her last visit. 10/18/16 Seen by Shon Barlow PA-C. The patient does not report any change in pain or drainage from her chronic left lateral malleolar ulcer since her last evaluation. 10/04/16. Seen by Dr. Sifuentes. The patient does not report pain or significant drainage associated with the chronic left lateral malleolus ulcer. She continues to apply gentamicin cream at each dressing change due to chronic and recurring infections at the ulcer site. 09/27/16. Seen by Dr. Sifuentes.The patient does not report significant drainage or pain associated with chronic left lateral malleolus on pressure ulcer since her last visit. She continues to apply topical gentamicin ointment for the chronic wound infection. 09/13/16. Seen by Dr. Sifuentes. The patient reports scant drainage and no pain associated with the chronic left lateral malleolar non-pressure ulcer and she's applying topical gentamicin daily to treat the recent polymicrobial wound infection as recommended. 09/04/16 Seen by Shon Barlow PA-C. The patient reports minimal drainage and she is attempting to offload the ulcer area when she sleeps using a [place]-saver ankle protector. 08/30/16. Seen by Dr. Sifuentes. The patient reports increased pain and drainage associated with the chronic left lateral malleolr non-pressure ulcer over the past week but she does not report fevers or feeling unwell. Her wound culture from the last visit grew Enterobacter, E. coli, and a coag negative Staph and she started taking Bactrim and applying topical gentamicin yesterday. She's on a 1/2 dose of Bactrim due to her end stage renal disease. 08/23/16. Seen by Dr. Sifuentes. The patient reports some increased drainage on her dressing covering the chronic left lateral malleolar non-pressure ulcer. She does no report pain however nor fevers or feeling unwell. 08/09/16. Seen by Dr. Sifuentes. The patient does not report drainage or pain associated with the chronic left lateral malleolar ulcer. 07/26/16. Seen by Dr. Sifuentes. The patient does not report drainage or pain associated with the chronic left lateral malleolar ulcer since her last visit. 07/11/16. Seen by Dr. Sifuentes. The patient does not report drainage or pain associated with the chronic left lateral malleolar ulcer since her visit last week. 06/21/16 Seen by Shon Barlow PA-C. The patient reports no change in drainage from her left lateral malleolus ulcer. 06/14/16. Seen by Dr. Sifuentes. The patient reportedly minimal drainage associated with the chronic left lateral malleolus ulcer since her last visit. Her arterial Doppler of the left leg was remarkable. 06/07/16. Seen by Dr. Sifuentes. The patient does not report pain or drainage associated with the chronic left lateral malleolar ulcer over the past week. 05/31/16. Seen by Dr. Sifuentes. The patient does not report pain or drainage associated with chronic left lateral malleolus nonpressure ulcer over the past week. Of note, her wound culture from the last visit grew a resistant coag negative Staph. She's not currently taking antibiotics. 05/24/[address] Sifuentes. The patient does not report increased pain or drainage associated with the chronic left lateral malleolar non-pressure ulcer over the past week. 05/17/[address] Sifuentes. The patient does not report pain associated with the chronic left lateral malleolar non-pressure ulcer over the past week and there's only a scant amount of drainage on her dressing today. 05/10/[address] Sifuentes. The patient does not report pain or drainage associated with the chronic left lateral malleolar ulcer or associated underlying malleolar chronic osteomyelitis over the past week. Of note, she had another Epifix skin substitute placed last week. 05/03/[address] Sifuentes. The patient does not report pain or drainage associated with the left lateral malleolar non-pressure ulcer over the past week and she's tolerating HBOT, which is treating associated underlying chronic osteomyelitis, without reporting any issues. 04/26/16 Seen by Shon Barlow PA-C. The patient reports no noted change in her chronic left lateral malleolar ulcer since her last evaluation. 04/19/[address] Sifuentes. The patient does not report pain or drainage associated with the chronic left lateral malleolar non-pressure ulcer nor underlying chronic osteomyelitis. She continues with HBOT but has completed an 8 week course of IV vancomycin. 04/12/[address] Sifuentes. The patient does not report drainage or pain associated with her chronic left lateral malleolar ulcer and underlying chronic osteomyelitis. She' s received 3 placements of Epifix recently and continues with HBOT in addition to an extended course of IV vancomycin. Her wound culture from 04/05/16 showed no organisms and had no growth. 04/05/[address] Sifuentes. The patient does not report pain or drainage from her chronic left lateral malleolar non-pressure ulcer and she continues on IV vancomycin for chronic osteomyelitis of the underlying malleolus. 03/29/[address] Sifuentes. The patient does not report pain or drainage associated with her chronic left lateral malleolar non-pressure ulcer and she continues on IV vancomycin and hyperbaric therapy for underlying chronic osteomyelitis of the malleolus. 03/22/[address] Sifuentes. The patient does not report pain or drainage associated with the chronic left lateral malleolar non-pressure ulcer. 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 She also states she's no longer smoking. 03/06/16 Seen by Shon Barlow PA-C. The patient is changing her dressing daily, as instructed but now reports decreased drainage from her ulcer. 03/01/[address] Sifuentes. The patient does not report pain or significant drainage associated with her chronic left lateral malleolar ulcer and she continues on IV vancomycin and hyperbaric oxygen therapy for underlying chronic osteomyelitis of the lateral malleolus. 02/14/16 Seen by Shon Barlow PA-C. The patient feels her left malleolar ulcer with underlying chronic osteomyelitis may be larger and has been draining more since her last evaluation. She continues on doxycycline and her ulcer culture grew a staph Spp. and E Faecalis both of which were highly resistant. She reports that she is only smoking a few cigarettes per day. Her dialysis continues at 2 times weekly. Her COPD is stable on current medications with no recent exacerbations. 02/08/[address] Sifuentes. The patient does not report pain associated with the chronic left lateral malleolar non-pressure ulcer however the staff report brown drainage on her dressing today. She continues on doxycycline for a recent polymicrobial resistant Staph culture and her recent bone scan on 01/26/16 show's persistent left lateral malleolar osteomyelitis while reporting interval improvement from her previous scan on 09/29/15. She does not report fevers or feeling unwell and she also reports that she's significantly reduced her smoking over the past week. 01/26/[address] Sifuentes. The patient does not report pain associated with the chronic left lateral malleolar non-pressure ulcer nor does she report any problems with the wound vac. She continues on doxycycline without reporting adverse side effects and her bone scan shows persistence of osteomyelitis beneath the ulcer with interval improvement from that of 09/29/16. 01/19/[address] Sifuentes. The patient does not report pain associated with the chronic left lateral malleolar non-pressure ulcer nor any problems with the wound vac. She continues on doxycycline also for a resistant coag neg Staph culture and does not report adverse side effects. 01/12/[address] Sifuentes. The patient does not report pain or significant drainage associated with the chronic left lateral malleolar ulcer. She also is now on doxycycline for a resistant coag neg Staph culture from 12/28/15 and does not report adverse effects. 01/04/[address] Sifuentes. The patient reports some increased pain just proximal to the chronic left lateral malleolar non-pressure ulcer. She's currently using only topical gentamicin to treat an intermediately resistant coag negative Staph culture from the ulcer. 12/28/[address] Sifuentes. The patient does not report drainage and reports only minimal pain associated with the chronic left lateral malleolar ulcer. Her wound culture grew only resistant Staph epi. 12/21/[address] Sifuentes. The patient does not report pain or drainage associated with the chronic left lateral malleolar ulcer and she's continues off of antibiotics. 12/07/2015 Seen by Shon Barlow PA-C. The patient's moxifloxacin has now finished and she does not report any change in left ankle pain or drainage. 11/30/2015 Seen by Shon Barlow PA-C. The patient's moxifloxacin prescription continues for 1 more week. She is currently not undergoing adjunctive hyperbaric oxygen treatments. She reports no change in ulcer pain. 11/25/[address] Sifuentes. The patient does not report any new issues regarding her chronic left lateral malleolar non-pressure ulcer however the staff report some moderate maceration. 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 11/15/15 Seen by Shon Barlow PA-C. The patient will complete her last Vancomycin infusion tomorrow and will then discontinue this antibiotic and discontinue 3x weekly dialysis and resume twice weekly dialysis. Her ulcer, overlying chronic osteomyelitis has been draining minimally and has not been reportedly painful since her last evaluation. She is now weaned off of citalopram (which had interactions with Moxifloxacin, which we originally wanted to prescribe) and she reports no depression symptoms. 11/08/15 Seen by Shon Barlow PA-C. The patient does not report increased pain or drainage from her ulcer with underlying osteomyelitis. She continues on Vancomycin. 11/03/[address] Sifuentes. The patient does not report pain and only scant drainage from the chronic left lateral malleolar ulcer and underlying chronic osteomyelitis. She's on day 24 of IV vancomycin for the Enterococcus positive wound culture and HBOT for chronic osteomyelitis. 10/27/[address] Sifuentes. The patient reports minimal discomfort and scant drainage from the left lateral malleolar ulcer and underlying chronic osteomyelitis. She continues on IV vancomycin for this problem as well as HBOT without reporting problems. 10/19/15 Seen by Shon Barlow PA-C. The patient reports a stable appearance of her ulcer. She is going to begin 3x weekly dialysis due to the administration of Vancomycin. When she completes her Vancomycin course she will resume twice weekly dialysis. 10/12/[address] Sifuentes. The patient states she's had 5 episodes of diarrhea this morning and complains of some mild left sided abdominal pain. 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 Lorenzana, regarding dosing around her dialysis. She does not report drainage nor significant discomfort associated with ulcer nor underlying chronic osteomyelitis of the malleolus and continues with HBOT as adjuvant therapy without reporting problems. 10/06/[address] Sifuentes. The patient continues to report some discomfort regarding her left lateral malleolar ulcer and underlying chronic osteomyelitis. She's seen Dr. Silva, her PCP, whose started a taper of her Celexa over the next 6 weeks due to a potentially serious interaction with fluorquinolone antibiotics which could eventually be useful in treating the Enterococcus faecalis positive wound culture from 09/28/15. She does not report fever or other acute issues currently and has been off of antibiotics for the past week due to the limited options based on sensitivities. She's continued HBOT over this period while we' ve attempted to find an appropriate antibiotic solution. Of note, her bone scan from 09/29/15 confirms persistence of chronic osteomyelitis also. 09/14/15 Seen by Shon Barlow PA-C. The patient reports no difficulty with her doxycycline or HBOT treatments. Her ankle ulcer continues to drain and she has not observed much change. 09/07/[address] Sifuentes. The patient does not report significant pain or drainage associated with her left lateral malleolar ulcer and she continues on doxycycline for associated chronic osteomyelitis without reporting adverse side effects. She's also tolerating HBOT without reporting any problems. 08/24/[address] Sifuentes. The patient reports increased pain and redness in the periwound area of the left lateral malleolar ulcer that overlies the site of chronic osteomyelitis. She does not report fever, chills, sweats, or increased drainage. Her wound culture at the last visit was unremarkable despite being off of antibiotics. She's been approved for HBOT and currently does not report acute URI symptoms but states she has some chronic sinus congestion. Of note, her CXR was consistent with COPD. 08/17/[address] Sifuentes. The patient states her left lateral malleous is more tender than last week with some radiation of pain to the mid foot. She does not report increased 08/04/[address] Sifuentes. The patient attend the ER following our last visit and was sent to [facility] due to acute on chronic renal failure. She'd apparently become dehydrated due to nausea and vomiting and was dx with a small bowel obstruction. Of note, I'd contacted her to discontinue Bactrim, which she'd been on for about a month for left lateral malleolar osteomyelitis, due to her Cr increasing. This has since returned to it's baseline and she's currently not on antibiotics. She does not report increased pain, swelling or drainage associated with the overlying ulcer. She's also to complete the 2nd phase of her bone scan checking for persistence of osteomyelitis later today. 07/28/[address] Sifuentes. The patient does not report drainage or pain associated with the left lateral malleolar ulcer. She continues on an extended course of Bactrim for possible osteomyelitis which is concerning based on her history of chronic kidney disease requiring dialysis. She notes she still produces adequate urine but has not had her renal function checked since 07/05/15 when her Cr was 2.7. 07/20/[address] Sifuentes. The patient does not report any new issues such as pain or increased drainage from the left lateral malleolar ulcer. She continues on Bactrim for possible chronic osteomyelitis of the lateral malleolus. 07/13/[address] Sifuentes. The patient's new to our clinic and has been referred by Dr. Silva for a non-healing surgical wound following excision of a skin cancer ( type unconfirmed) at the left lateral malleolus. This was reportedly performed about 2 months ago and she's been on an extended course of Bactrim for the past month with some resolution in drainage and surrounding erythema. She has an MRI and bone scan of the site from the end of April that both raise suspicion for osteomyelities however. Otherwise her medical history is complicated by chronic renal failure requiring dialysis and a long history of smoking. She does not have a history of diabetes nor does she report rest pain, claudication, fever, sweats, or pain at the ulcer site. Past Medical History This information was obtained from the patient Patient has a medical history of: Depression Carpal tunnel Chronic renal Stage V (Cr 2.7 on 07/05/15; dialysis M, F) Unilateral nephrectomy Allergic rhinitis Hypertension Insomnia Lumbago Osteoporosis Peptic Ulcer Small bowel obstruction (recurrent) Chronic osteomyelitis (left lateral malleolus; dx on MRI and bone scan April 2015 ; reconfirmed on repeat bone scan 07/28/15; persistent but improved on 01/26/16 bone scan) COPD Chronic ulcer (left lateral malleolus) Complaints and Symptoms This information was obtained from the patient Patient complains of: General Notes: I have reviewed and concur with the Review of Systems and Past Family Social History documents completed by the clinician, I have reviewed and concur with the Wound Assessment document completed by the clinician Ear/Nose/Mouth/Throat: Hearing Loss / Aid Integumentary (Hair/Skin/Nails): Open Sore Prior Wound History: Drainage, Erythema, Pain Patient denies complaints or symptoms related to: Cardiovascular (Central/Peripheral): Intermittent Claudication, Lower extremity (leg) resting pain, Lower extremity (leg) swelling Constitutional Symptoms (General Health): Chills, Fever Gastrointestinal (GI): Nausea / Vomiting, Stomach/abdominal pain Hematologic/Lymphatic: Bleeding / Clotting Disorders, Bleeding Tendency Musculoskeletal: Deformities, Joint Swelling Neurological: Abnormal Gait, Loss of Protective Sensation Prior Wound History: Bleeding, Malodor Psychiatric: Memory Loss Respiratory: Oxygen Use, Shortness of Breath OBJECTIVE Constitutional Vital signs reviewed and noted. Well developed. Alert. Clean appearing.. Height/ Length: 60 in (152.4 cm), Weight: 100.2 lbs (45.55 kgs), BMI: 19.6, Temperature: 98.6 ?F (37 ? C), Pulse: 57 bpm, Respiratory Rate: 18 breaths/min, Blood Pressure: 124/52 mmHg, Pulse Oximetry: 99 %. Ears, Nose, Mouth, and Throat: Mild hearing deficit. Respiratory: No respiratory distress. Even respirations and without use of accessory muscles.. Cardiovascular: Affected extremity exhibits no peripheral edema or cyanosis, is warm, and is well perfused. Capillary refill is less than 2 seconds. Integumentary (Hair, Skin) No periwound erythema, warmth, or significant drainage. No periwound rashes appreciated or noted otherwise.. Refer to appropriate clinician wound documentation for this visit; left lower leg wound extends to subcut with base mostly covered with pink granulation, remainder fibrin and slough; smaller and less deep than on previous exam. Wound #2 Left, Lateral Ankle is an acute Full Thickness Surgical Wound and has received a status of Not Healed. Subsequent wound encounter measurements are 0.9cm length x 0.2cm width x 0.3cm depth, with an area of 0.18 sq cm and a volume of 0.054 cubic cm. No tunneling has been noted. No sinus tract has been noted. No undermining has been noted. There is a small amount of serous drainage noted which has no odor. The patient reports a wound pain of level 4/10. The wound margin is attached. Wound bed has Yes epithelialization, No eschar, Yes slough, Yes bright red, pink, firm granulation. The periwound skin color is normal. The periwound skin exhibited: Edema, Maceration. The periwound skin did not exhibit: Brawny Induration, Excoriation, Induration, Callus, Crepitus, Fluctuance, Friable, Rash, Dry/Scaly, Moist. The temperature of the periwound skin is WNL. Periwound skin does not exhibit signs or symptoms of infection. Local Pulse is Palpable. Neurological: Cranial nerves grossly intact with symmetric function normal by informal observation.. ASSESSMENT Active Problems ICD-10 (Encounter Diagnosis) L97.322 - Non-pressure chronic ulcer of left ankle with fat layer exposed (Encounter Diagnosis) T81.31XD - Disruption of external operation (surgical) wound, not elsewhere classified, subsequent encounter (Encounter Diagnosis) B95.2 - Enterococcus as the cause of diseases classified elsewhere PROCEDURES Wound #2 Wound #2 (Surgical Wound) is located on the left, lateral ankle. A skin/ subcutaneous tissue level surgical debridement with a total area debrided of 0.18 sq cm was performed by Isidoro Sifuentes MD. Subcutaneous was removed along with devitalized tissue: slough. The following instrument(s) were used: forceps and other. No anesthetic was required due to loss of sensation. A time out was conducted prior to the start of the procedure. A minimal amount of bleeding was controlled with pressure. The procedure was tolerated well with a pain level of 0 throughout and a pain level of 0 following the procedure. Post Debridement Measurements: 0.9cm length x 0.2cm width x 0.4cm depth; with an area of 0.18 sq cm and a volume of 0.072 cubic cm; General Notes: Degroot swab. Wound #2 (Surgical Wound) is located on the left, lateral ankle. A Disposable Wound Vac Application > 50 Sq Cm procedure was performed for the lower left extremity by Isidoro Sifuentes MD. The procedure was tolerated well. General Notes: SNAP 10x10 dressings and 125mmhg canister applied. PLAN Wound Orders: Wound #2 Left, Lateral Ankle Cleanser Cleanse Wound: - Normal saline and gauze. May Shower. - Cover with cast protector. Dressings Wound Vac: - SNAP 125 Change Dressing: - At next visit. SNAP Dressing - [id number] dressing, 125mmHg canister. Please observe to make sure the snap is not in the red. Additional Orders: Follow-Up Appointments Return Appointment: - - Saturday and Saturday for SNAP dressing change. Other information: If you develop fever, chills, increased pain, drainage, redness or swelling please call our office. If after hours, respond to the ER. Should you experience any significant changes in your wound(s) or have any questions regarding your home care instructions please contact the wound center @ [phone]. If after hours, contact your primary care physician or go to the hospital emergency room. Scribing Attestation I attest, as the nurse, that I scribed these orders for the physician. I've reviewed the clinician's documentation and agree with the evaluation and plan as written. In addition the patient's wound demonstrates evidence of non-viable devitalized tissue which will continue to benefit from sharp debridement to help promote granulation and expedite healing. Negative pressure wound therapy will be utilized to facilitate granulation and removal of exudate and infectious material with the goal of expediting wound healing. Also, the left lateral malleolus wound continues to slowly improve in the context of granulation, depth, and size and my feeling is the cortical changes noted on the MRI are related to post- operative changes as opposed to refractory osteomyelitis. We'll continue with vancomycin for one more week then discontinue thereafter. Electronic Signature(s) Signed By: Date: Isidoro Sifuentes MD 05/18/2018 17:52:31 Entered By: Isidoro Sifuentes on 05/18/2018 17:45:04
== END ==
PROVIDERS: PCP Family Medicine; Visit Provider Internal Medicine
DX: T81.31XA Disruption of external operation (surgical) wound, not elsewhere classified, initial encounter (principal); L97.322 Non-pressure chronic ulcer of left ankle with fat layer exposed; B95.2 Enterococcus as the cause of diseases classified elsewhere
CPT/HCPCS: 11042; 97607

== ENCOUNTER → 2018-05-20 10:43 | Outpatient (CLI) | payer MEDICARE, SELFPAY ==
--- NOTE | 2018-05-20 | OV.WND_ITS ---
Progress Note Details Patient Name: Kristine Damon Patient Number: [id number] PatientPatientDate: 05/20/2018 Clinician: Jennifer Gonzales Physician / Preparation Room Worker: Isidoro Sifuentes SUBJECTIVE Chief Complaint This information was obtained from the patient Wound to left lateral ankle. Allergies penicillin, prednisone, cephalexin, codeine, acetaminophen, hydrocodone, ketorolac HPI This information was obtained from the patient 05/20/18. Seen by Dr. Sifuentes. The patient does not report increased pain or drainage associated with the chronic left lateral malleolus surgical wound since her last visit and she's tolerating NPWT without difficulty. She continues on IV vancomycin during dialysis for the recent and reccurrent Enterococcus positive wound culture also however notes 2 doses were accidentally missed during dialysis last week. Her regimen completes today and her MRI of the ankle was inconclusive regarding the presence of osteomyelitis. 05/16/18. Seen by Dr. Sifuentes. The patient does not report increased pain or drainage associated with the chronic left lateral malleolus surgical wound since her last visit and she's tolerating NPWT without difficulty. She continues on IV vancomycin during dialysis for the recent Enterococcus positive wound culture also. Her MRI which was performed to re-evaluate the calcaneal stress fracture reports a cortical irregularity along the lateral malleolus that may represent osteomyelitis but must be considered in the context of her surgical debridement also. 05/13/18. Seen by Dr. Sifuentes. The patient reports continued pain in the left lateral malleolus posterior to the surgical wound and she has an MRI scheduled for this morning to evaluate the source of the pain. She also continues on IV vancomycin that's treating the recurrent Enterococcus positive culture and being infused during dialysis. She does not report fevers or feeling unwell otherwise and is tolerating negative pressure wound therapy without difficulty. 05/09/18. Seen by Shon Barlow PA-C. The patient continues on Vancomycin for her left malleolar wound infection which demonstrates stable drainage this week. 05/06/18. Seen by Shon Barlow PA-C. The patient reports stable drainage from her left malleolar wound and continues on Vancomycin to treat the Enterococcus infection of this wound. 05/02/18. Seen by Dr. Sifuentes. The patient reports improvement in the left foot pain and does not report increased drainage or other acute issues regarding the left lateral malleolus surgical wound that's being treated with negative pressure wound therapy. She's also continues on IV vancomycin during dialysis that's treating the recent Enterococcus positive wound culture. 04/29/18. Seen by Dr. Sifuentes. The patient reports improvement in the left foot pain over the past week and does not report increased drainage or other acute issues regarding the left lateral malleolus surgical wound that's being treated with negative pressure wound therapy. She's also now had 2 doses of IV vancomycin during dialysis this week that's treating the recent Enterococcus positive wound culture. 04/25/18. Seen by Dr. Sifuentes. The patient reports improvement in terms of pain associated with the chronic left lateral malleolus surgical wound since starting on IV vancomycin for the recently Enterococcus positive wound culture. She does not report adverse side effects and is receiving her antibiotics during dialysis. 04/22/18. Seen by Dr. Sifuentes. The patient reports some continued pain associated with the chronic left lateral malleolus surgical wound and she's been applying topical gentamicin to treat the recent Enterococcus positive wound culture. Her wound vac was discontinued last week also. Of note. she takes citalopram which complicates treating her wound infection with oral antibiotics and is also on dialysis for end stage renal disease and has received IV vancomycin without difficulty for her previous Enterococcus wound infections. 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 04/18/18. Seen by Dr. Sifuentes. The patient reports decreased pain associated with the chronic left lateral malleolus surgical wound over the past week since we held her wound vac. Her culture grew Enterococcus and she's not currently on antibiotics for this. Of note, her wound healing is complicated considerably by her end stage renal disease and being on dialysis and the wound is a result of deep bone debridement that was performed for chronic osteomyelitis of the malleolus. 04/15/18. Seen by Dr. Sifuentes. The patient continues to report persistent pain associated with the chronic left lateral malleolus surgical wound however she does not report increased drainage and has tolerated NPWT with the SNAP wound vac without difficulty. She' s now been off of antibiotics for the past month and underwent surgical bone debridement for chronic osteomyeylitis of the malleolus in late January. 04/11/18. Seen by Dr. Sifuentes. The patient does not report any new acute issues regarding her chronic left lateral malleolus surgical wound and she's tolerating NPWT with the SNAP wound vac without difficulty. 04/08/18. Seen by Dr. Sifuentes. The patient does not report any new acute issues regarding her chronic left lateral malleolus surgical wound and she's tolerating NPWT with the SNAP wound vac without difficulty. 04/04/18. Seen by Dr. Sifuentes. The patient continues to report pain associated with the chronic left lateral malleolus surgical wound despite the fact we discontinued NPWT at her last visit. Her wound culture grew only yeast and Diptheroids. 04/01/2018. Seen by Dr. Sifuentes. The patient continues to report pain associated with the chronic left lateral malleolus surgical wound. She does not report significant drainage from the site and has tolerated negative pressure wound therapy. She is not currently on antibiotics and has no other acute complaints today. 03/28/18. Seen by Dr. Sifuentes. The patient does not report significant pain nor drainage associated chronic left lateral malleolus surgical wound since her last visit and she's tolerating NPWT with the SNAP wound vac without difficulty. 03/25/18. Seen by Dr. Sifuentes. The patient continues to report pain throughout the midfoot and dorsum of the left foot that limits her ability to walk to only a couple of minutes at a time. She does not report any changes regarding the left lateral ankle surgical wound and is tolerating negative pressure wound therapy without difficulty. She's also not currently on oral antibiotics. 03/18/18. Seen by Dr. Sifuentes. The patient reports intermittent pain associated with the left lateral ankle however shoes are report increased drainage from the lateral malleolus surgical wound since her last visit. She is also tolerating negative pressure wound therapy without difficulty. 03/11/18. Seen by Dr Sifuentes.The patient reports some intermittent pain in the left lateral ankle when bearing weight but does not report significant drainage associated with the left lateral malleolus surgical wound since her last visit. She was changed from ciprofloxacin to doxycycline based on the recent culture growing a resistant coag negative staph organism. She does not report adverse side effects, fevers, or other acute issues today. 03/04/18. Seen by Dr. Sifuentes. The patient does not report significant pain nor drainage associated chronic left lateral malleolus surgical wound since her last visit. She continues on ciprofloxacin for chronic osteomyelitis also without reported adverse side effects. 02/25/18. Seen by Dr. Sifuentes. 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 She saw Dr. John last week and will start to use a bone stimulator to help heal the pathologic fracture. She does not report significant drainage associated with the left lateral malleolus surgical wound. 02/18/18. Seen by Dr. Sifuentes. The patient reports ongoing, but decreasing, pain associated with the left lateral malleolus surgical wound and she continues on ciprofloxacin and Flagy for chronic osteomyelitis without reporting adverse side effects. She'll see her surgeon, Dr. John, this . 02/14/18. Seen by Dr. Sifuentes. The patient reports decreased pain associated with the left lateral malleolus surgical wound and staff report only a moderate amount of drainage on the ROMEL wound vac dressing. She continues on cipro and Flagyl for chronic osteomyelitis and does not report adverse side effects or feeling unwell in general. 02/11/18. Seen by Dr. Sifuentes. The patient continues to report some persistent pain associated with the chronic left lateral malleolus surgical wound since her last visit. She does not report increased drainage however and is scheduled to see Dr. John, her orthopedic surgeon, next Saturday. She continues on ciprofloxacin and Flagyl as well and her surgery was a deep bone debridement to address the chronic osteomyelitis of the malleolus. 02/07/18. Seen by Dr. Sifuentes. 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 John. She reports some persistent discomfort at the wound site and is now on ciprofloxacin and Flagyl. Culture results of the execised bone are not yet available and the patient does not report any adverse side effects from the antibiotics, fevers, nor feeling unwell. 11/27/17. Seen by Dr. Sifuentes. The patient does not report pain associated with the chronic left lateral malleolus ulcer however she does describe diffuse pain throughout the lateral aspect of the foot and heel. She states this has been present for 6 weeks however has not raised the issue at our clinic until last week. She was seen by her primary care provider who subsequently ordered an MRI that revealed a nondisplaced fracture of the calcaneus. The MRI did mention also that the chronic osteomyelitis of the lateral malleolus appears to have improved from the previous imaging. 11/06/17. Seen by Dr. Sifuentes. The patient does not report significant pain or drainage associated with the chronic left lateral malleolar nonpressure ulcers since her last visit. She stop using a dressing due to pain and feels this has resolved in the interim. She's also asked that I look at a finger on her right hand that's been slow to heal since her dog scratched her a few weeks ago. She does not report pain at the site but states it's been draining a bit. 10/23/17. Seen by Dr. Sifuentes. The patient reports some persistent and modest pain associated with chronic left lateral malleolar nonpressure ulcer since her last visit. Does not report increased drainage and has been applying topical gentamicin to treat the recurrent cognitive staph wound infection. 10/02/17. The patient reports some intermittent pain associated with chronic left lateral malleolar nonpressure ulcer since her last visit however does not report increased drainage. 09/10/17. Seen by Shon Barlow PA-C. The patient reports no increase in drainage from her left lateral malleolar ulcer. She continues to abstain from smoking. 08/20/17. Seen by Dr. Sifuentes. The patient does not report significant pain or drainage associated with the chronic left lateral malleolar nonpressure ulcers since her last visit. She applying OTC topical antibiotic as prescribed to treat a recurrent wound infection noted at her last visit. 08/06/17. Seen by Dr. Sifuentes. The patient does not report significant pain or drainage associated with the chronic left lateral malleolar nonpressure ulcers since her last visit. 07/16/17. Seen by Dr. Sifuentes. The patient does not report pain or significant drainage associated with the chronic left lateral malleolar nonpressure ulcers since her last visit. 07/09/17. Seen by Dr. Sifuentes. The patient reports some intermittent pain associated with chronic left lateral malleolar nonpressure ulcer since her last visit however does not report increased drainage. 06/27/17. Seen by Dr. Sifuentes. The patient does not report pain or significant drainage associated with the chronic left lateral malleolar ulcer since her last visit. She feels her previously reported symptoms have improved since starting on levofloxacin for the polymicrobial wound culture following her last visit. 06/20/17. Seen by Dr. Sifuentes. The patient reports some burning associated with the left lateral chronic malleoli are not pressure ulcer. Her wound culture grew stenotrophomonas , enterococcus, and a coag-negative staph. She started on levofloxacin for this to be taken around her dialysis schedule. She does not report fevers or feeling unwell. 06/13/17. Seen by Shon Barlow PA-C. The patient reports that the steri-strips that were used to reduce wound tension were painful and she removed them. Her ulcer at that time grew E.coli which she has finished her antibiotic treatment for. 05/30/17. Seen by Dr. Sifuentes. The patient reports increased pain and drainage associated with the chronic left lateral malleolar ulcer over the past few days. She continues on dialysis and is scheduled to have cataract surgery later this week. She does not report fevers or feeling unwell and is not currently on antibiotics. 04/18/17. Seen by Dr. Sifuentes. The patient does not report pain or significant drainage the chronic left lateral malleolar ulcer over the past week. 03/28/17. Seen by Dr. Sifuentes. The patient does not report significant drainage or pain associated with the chronic left lateral malleolar non-pressure ulcer since her last visit. 03/07/17. Seen by Dr. Sifuentes. The patient does not report significant drainage or pain associated with the chronic left lateral malleolar non-pressure ulcer since her last visit. 02/14/17. Seen by Dr. Sifuentes. The patient feels the drainage from the chronic left lateral malleolar non-pressure ulcer noted at the last visit has decreased. Her wound culture grew Enterococcus and Enterobacter species however she did not tolerate her ciprofloxacin due to GI upset and stopped taking it after the few couple of doses. 02/05/17. Seen by Dr. Sifuentes. The patient does not report increased pain or drainage associated with chronic left lateral malleolar nonpressure ulcers since her last visit. 01/10/17. Seen by Dr. Sifuentes. The patient reports no increase in pain or significant drainage associated with the chronic left lateral malleolar nonpressure ulcer since her last visit. 12/20/16. Seen by Dr. Sifuentes. The patient does not report drainage associated with the chronic left lateral malleolus ulcer since her last visit. 11/29/16. Seen by Dr. Sifuentes. The patient does not report significant drainage associated with the chronic left lateral malleolus ulcer since her last visit. 11/08/16. Seen by Dr. Sifuentes. The patient does not report pain or significant drainage associated with the chronic left lateral malleolus ulcer since her last visit. 10/18/16 Seen by Shon Barlow PA-C. The patient does not report any change in pain or drainage from her chronic left lateral malleolar ulcer since her last evaluation. 10/04/16. Seen by Dr. Sifuentes. The patient does not report pain or significant drainage associated with the chronic left lateral malleolus ulcer. She continues to apply gentamicin cream at each dressing change due to chronic and recurring infections at the ulcer site. 09/27/16. Seen by Dr. Sifuentes.The patient does not report significant drainage or pain associated with chronic left lateral malleolus on pressure ulcer since her last visit. She continues to apply topical gentamicin ointment for the chronic wound infection. 09/13/16. Seen by Dr. Sifuentes. The patient reports scant drainage and no pain associated with the chronic left lateral malleolar non-pressure ulcer and she's applying topical gentamicin daily to treat the recent polymicrobial wound infection as recommended. 09/04/16 Seen by Shon Barlow PA-C. The patient reports minimal drainage and she is attempting to offload the ulcer area when she sleeps using a Lynd-saver ankle protector. 08/30/16. Seen by Dr. Sifuentes. The patient reports increased pain and drainage associated with the chronic left lateral malleolr non-pressure ulcer over the past week but she does not report fevers or feeling unwell. Her wound culture from the last visit grew Enterobacter, E. coli, and a coag negative Staph and she started taking Bactrim and applying topical gentamicin yesterday. She's on a 1/2 dose of Bactrim due to her end stage renal disease. 08/23/16. Seen by Dr. Sifuentes. The patient reports some increased drainage on her dressing covering the chronic left lateral malleolar non-pressure ulcer. She does no report pain however nor fevers or feeling unwell. 08/09/16. Seen by Dr. Sifuentes. The patient does not report drainage or pain associated with the chronic left lateral malleolar ulcer. 07/26/16. Seen by Dr. Sifuentes. The patient does not report drainage or pain associated with the chronic left lateral malleolar ulcer since her last visit. 07/11/16. Seen by Dr. Sifuentes. The patient does not report drainage or pain associated with the chronic left lateral malleolar ulcer since her visit last week. 06/21/16 Seen by Shon Barlow PA-C. The patient reports no change in drainage from her left lateral malleolus ulcer. 06/14/16. Seen by Dr. Sifuentes. The patient reportedly minimal drainage associated with the chronic left lateral malleolus ulcer since her last visit. Her arterial Doppler of the left leg was remarkable. 06/07/16. Seen by Dr. Sifuentes. The patient does not report pain or drainage associated with the chronic left lateral malleolar ulcer over the past week. 05/31/16. Seen by Dr. Sifuentes. The patient does not report pain or drainage associated with chronic left lateral malleolus nonpressure ulcer over the past week. Of note, her wound culture from the last visit grew a resistant coag negative Staph. She's not currently taking antibiotics. 05/24/[address] Sifuentes. The patient does not report increased pain or drainage associated with the chronic left lateral malleolar non-pressure ulcer over the past week. 05/17/[address] Sifuentes. The patient does not report pain associated with the chronic left lateral malleolar non-pressure ulcer over the past week and there's only a scant amount of drainage on her dressing today. 05/10/[address] Sifuentes. The patient does not report pain or drainage associated with the chronic left lateral malleolar ulcer or associated underlying malleolar chronic osteomyelitis over the past week. Of note, she had another Epifix skin substitute placed last week. 05/03/[address] Sifuentes. The patient does not report pain or drainage associated with the left lateral malleolar non-pressure ulcer over the past week and she's tolerating HBOT, which is treating associated underlying chronic osteomyelitis, without reporting any issues. 04/26/16 Seen by Shon Barlow PA-C. The patient reports no noted change in her chronic left lateral malleolar ulcer since her last evaluation. 04/19/[address] Sifuentes. The patient does not report pain or drainage associated with the chronic left lateral malleolar non-pressure ulcer nor underlying chronic osteomyelitis. She continues with HBOT but has completed an 8 week course of IV vancomycin. 04/12/[address] Sifuentes. The patient does not report drainage or pain associated with her chronic left lateral malleolar ulcer and underlying chronic osteomyelitis. She' s received 3 placements of Epifix recently and continues with HBOT in addition to an extended course of IV vancomycin. Her wound culture from 04/05/16 showed no organisms and had no growth. 04/05/[address] Sifuentes. The patient does not report pain or drainage from her chronic left lateral malleolar non-pressure ulcer and she continues on IV vancomycin for chronic osteomyelitis of the underlying malleolus. 03/29/[address] Sifuentes. The patient does not report pain or drainage associated with her chronic left lateral malleolar non-pressure ulcer and she continues on IV vancomycin and hyperbaric therapy for underlying chronic osteomyelitis of the malleolus. 03/22/[address] Sifuentes. The patient does not report pain or drainage associated with the chronic left lateral malleolar non-pressure ulcer. 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 She also states she's no longer smoking. 03/06/16 Seen by Shon Barlow PA-C. The patient is changing her dressing daily, as instructed but now reports decreased drainage from her ulcer. 03/01/[address] Sifuentes. The patient does not report pain or significant drainage associated with her chronic left lateral malleolar ulcer and she continues on IV vancomycin and hyperbaric oxygen therapy for underlying chronic osteomyelitis of the lateral malleolus. 02/14/16 Seen by Shon Barlow PA-C. The patient feels her left malleolar ulcer with underlying chronic osteomyelitis may be larger and has been draining more since her last evaluation. She continues on doxycycline and her ulcer culture grew a staph Spp. and E Faecalis both of which were highly resistant. She reports that she is only smoking a few cigarettes per day. Her dialysis continues at 2 times weekly. Her COPD is stable on current medications with no recent exacerbations. 02/08/[address] Sifuentes. The patient does not report pain associated with the chronic left lateral malleolar non-pressure ulcer however the staff report brown drainage on her dressing today. She continues on doxycycline for a recent polymicrobial resistant Staph culture and her recent bone scan on 01/26/16 show's persistent left lateral malleolar osteomyelitis while reporting interval improvement from her previous scan on 09/29/15. She does not report fevers or feeling unwell and she also reports that she's significantly reduced her smoking over the past week. 01/26/[address] Sifuentes. The patient does not report pain associated with the chronic left lateral malleolar non-pressure ulcer nor does she report any problems with the wound vac. She continues on doxycycline without reporting adverse side effects and her bone scan shows persistence of osteomyelitis beneath the ulcer with interval improvement from that of 09/29/16. 01/19/[address] Sifuentes. The patient does not report pain associated with the chronic left lateral malleolar non-pressure ulcer nor any problems with the wound vac. She continues on doxycycline also for a resistant coag neg Staph culture and does not report adverse side effects. 01/12/[address] Sifuentes. The patient does not report pain or significant drainage associated with the chronic left lateral malleolar ulcer. She also is now on doxycycline for a resistant coag neg Staph culture from 12/28/15 and does not report adverse effects. 01/04/[address] Sifuentes. The patient reports some increased pain just proximal to the chronic left lateral malleolar non-pressure ulcer. She's currently using only topical gentamicin to treat an intermediately resistant coag negative Staph culture from the ulcer. 12/28/[address] Sifuentes. The patient does not report drainage and reports only minimal pain associated with the chronic left lateral malleolar ulcer. Her wound culture grew only resistant Staph epi. 12/21/[address] Sifuentes. The patient does not report pain or drainage associated with the chronic left lateral malleolar ulcer and she's continues off of antibiotics. 12/07/2015 Seen by Shon Barlow PA-C. The patient's moxifloxacin has now finished and she does not report any change in left ankle pain or drainage. 11/30/2015 Seen by Shon Barlow PA-C. The patient's moxifloxacin prescription continues for 1 more week. She is currently not undergoing adjunctive hyperbaric oxygen treatments. She reports no change in ulcer pain. 11/25/[address] Sifuentes. The patient does not report any new issues regarding her chronic left lateral malleolar non-pressure ulcer however the staff report some moderate maceration. 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 11/15/15 Seen by Shon Barlow PA-C. The patient will complete her last Vancomycin infusion tomorrow and will then discontinue this antibiotic and discontinue 3x weekly dialysis and resume twice weekly dialysis. Her ulcer, overlying chronic osteomyelitis has been draining minimally and has not been reportedly painful since her last evaluation. She is now weaned off of citalopram (which had interactions with Moxifloxacin, which we originally wanted to prescribe) and she reports no depression symptoms. 11/08/15 Seen by Shon Barlow PA-C. The patient does not report increased pain or drainage from her ulcer with underlying osteomyelitis. She continues on Vancomycin. 11/03/[address] Sifuentes. The patient does not report pain and only scant drainage from the chronic left lateral malleolar ulcer and underlying chronic osteomyelitis. She's on day 24 of IV vancomycin for the Enterococcus positive wound culture and HBOT for chronic osteomyelitis. 10/27/[address] Sifuentes. The patient reports minimal discomfort and scant drainage from the left lateral malleolar ulcer and underlying chronic osteomyelitis. She continues on IV vancomycin for this problem as well as HBOT without reporting problems. 10/19/15 Seen by Shon Barlow PA-C. The patient reports a stable appearance of her ulcer. She is going to begin 3x weekly dialysis due to the administration of Vancomycin. When she completes her Vancomycin course she will resume twice weekly dialysis. 10/12/[address] Sifuentes. The patient states she's had 5 episodes of diarrhea this morning and complains of some mild left sided abdominal pain. She's been started on IV vancomycin for the left lateral malleolar ulcer cultured for Enterococcus and is under the care of her system admin, Dr. Lorenzana, regarding dosing around her dialysis. She does not report drainage nor significant discomfort associated with ulcer nor underlying chronic osteomyelitis of the malleolus and continues with HBOT as adjuvant therapy without reporting problems. 10/06/[address] Sifuentes. The patient continues to report some discomfort regarding her left lateral malleolar ulcer and underlying chronic osteomyelitis. She's seen Dr. Silva, her PCP, whose started a taper of her Celexa over the next 6 weeks due to a potentially serious interaction with fluorquinolone antibiotics which could eventually be useful in treating the Enterococcus faecalis positive wound culture from 09/28/15. She does not report fever or other acute issues currently and has been off of antibiotics for the past week due to the limited options based on sensitivities. She's continued HBOT over this period while we' ve attempted to find an appropriate antibiotic solution. Of note, her bone scan from 09/29/15 confirms persistence of chronic osteomyelitis also. 09/14/15 Seen by Shon Barlow PA-C. The patient reports no difficulty with her doxycycline or HBOT treatments. Her ankle ulcer continues to drain and she has not observed much change. 09/07/[address] Sifuentes. The patient does not report significant pain or drainage associated with her left lateral malleolar ulcer and she continues on doxycycline for associated chronic osteomyelitis without reporting adverse side effects. She's also tolerating HBOT without reporting any problems. 08/24/[address] Sifuentes. The patient reports increased pain and redness in the periwound area of the left lateral malleolar ulcer that overlies the site of chronic osteomyelitis. She does not report fever, chills, sweats, or increased drainage. Her wound culture at the last visit was unremarkable despite being off of antibiotics. She's been approved for HBOT and currently does not report acute URI symptoms but states she has some chronic sinus congestion. Of note, her CXR was consistent with COPD. 08/17/[address] Sifuentes. The patient states her left lateral malleous is more tender than last week with some radiation of pain to the mid foot. She does not report increased 08/04/[address] Sifuentes. The patient attend the ER following our last visit and was sent to [facility] due to acute on chronic renal failure. She'd apparently become dehydrated due to nausea and vomiting and was dx with a small bowel obstruction. Of note, I'd contacted her to discontinue Bactrim, which she'd been on for about a month for left lateral malleolar osteomyelitis, due to her Cr increasing. This has since returned to it's baseline and she's currently not on antibiotics. She does not report increased pain, swelling or drainage associated with the overlying ulcer. She's also to complete the 2nd phase of her bone scan checking for persistence of osteomyelitis later today. 07/28/[address] Sifuentes. The patient does not report drainage or pain associated with the left lateral malleolar ulcer. She continues on an extended course of Bactrim for possible osteomyelitis which is concerning based on her history of chronic kidney disease requiring dialysis. She notes she still produces adequate urine but has not had her renal function checked since 07/05/15 when her Cr was 2.7. 07/20/[address] Sifuentes. The patient does not report any new issues such as pain or increased drainage from the left lateral malleolar ulcer. She continues on Bactrim for possible chronic osteomyelitis of the lateral malleolus. 07/13/[address] Sifuentes. The patient's new to our clinic and has been referred by Dr. Silva for a non-healing surgical wound following excision of a skin cancer ( type unconfirmed) at the left lateral malleolus. This was reportedly performed about 2 months ago and she's been on an extended course of Bactrim for the past month with some resolution in drainage and surrounding erythema. She has an MRI and bone scan of the site from the end of April that both raise suspicion for osteomyelities however. Otherwise her medical history is complicated by chronic renal failure requiring dialysis and a long history of smoking. She does not have a history of diabetes nor does she report rest pain, claudication, fever, sweats, or pain at the ulcer site. Past Medical History This information was obtained from the patient Patient has a medical history of: Depression Carpal tunnel Chronic renal Stage V (Cr 2.7 on 07/05/15; dialysis M, F) Unilateral nephrectomy Allergic rhinitis Hypertension Insomnia Lumbago Osteoporosis Peptic Ulcer Small bowel obstruction (recurrent) Chronic osteomyelitis (left lateral malleolus; dx on MRI and bone scan April 2015 ; reconfirmed on repeat bone scan 07/28/15; persistent but improved on 01/26/16 bone scan) COPD Chronic ulcer (left lateral malleolus) Complaints and Symptoms This information was obtained from the patient Patient complains of: General Notes: I have reviewed and concur with the Review of Systems and Past Family Social History documents completed by the clinician, I have reviewed and concur with the Wound Assessment document completed by the clinician Ear/Nose/Mouth/Throat: Hearing Loss / Aid Integumentary (Hair/Skin/Nails): Open Sore Prior Wound History: Drainage, Erythema, Pain Patient denies complaints or symptoms related to: Cardiovascular (Central/Peripheral): Intermittent Claudication, Lower extremity (leg) resting pain, Lower extremity (leg) swelling Constitutional Symptoms (General Health): Chills, Fever Gastrointestinal (GI): Nausea / Vomiting, Stomach/abdominal pain Hematologic/Lymphatic: Bleeding / Clotting Disorders, Bleeding Tendency Musculoskeletal: Deformities, Joint Swelling Neurological: Abnormal Gait, Loss of Protective Sensation Prior Wound History: Bleeding, Malodor Psychiatric: Memory Loss Respiratory: Oxygen Use, Shortness of Breath OBJECTIVE Constitutional Vital signs reviewed and noted. Well developed. Alert. Clean appearing.. Height/ Length: 60 in (152.4 cm), Weight: 96.1 lbs (43.68 kgs), BMI: 18.8, Temperature: 98.7 ?F ( 37.06 ?C), Pulse: 58 bpm, Respiratory Rate: 18 breaths/min, Blood Pressure: 133/58 mmHg, Pulse Oximetry: 97 %. Ears, Nose, Mouth, and Throat: Mild hearing deficit. Respiratory: No respiratory distress. Even respirations and without use of accessory muscles.. Cardiovascular: Affected extremity exhibits no peripheral edema or cyanosis, is warm, and is well perfused. Capillary refill is less than 2 seconds. Integumentary (Hair, Skin) No periwound erythema, warmth, or significant drainage. No periwound rashes appreciated or noted otherwise.. Refer to appropriate clinician wound documentation for this visit; left lower leg wound extends to subcut with base mostly covered with pink granulation, remainder fibrin and slough; smaller and less deep than on previous exam. Maceration present in the periwound area. Wound #2 Left, Lateral Ankle is an acute Full Thickness Surgical Wound and has received a status of Not Healed. Subsequent wound encounter measurements are 0.8cm length x 0.3cm width x 0.4cm depth, with an area of 0.24 sq cm and a volume of 0.096 cubic cm. No tunneling has been noted. No sinus tract has been noted. No undermining has been noted. There is a small amount of serous drainage noted which has no odor. The patient reports a wound pain of level 4/10. The wound margin is attached. Wound bed has Yes epithelialization, No eschar, Yes slough, Yes pink, firm granulation. The periwound skin color is normal. The periwound skin exhibited: Edema, Maceration. The periwound skin did not exhibit: Brawny Induration, Excoriation, Induration, Callus, Crepitus, Fluctuance, Friable, Rash, Dry/Scaly, Moist. The temperature of the periwound skin is WNL. Periwound skin does not exhibit signs or symptoms of infection. Local Pulse is Palpable. Neurological: Cranial nerves grossly intact with symmetric function normal by informal observation.. ASSESSMENT Active Problems ICD-10 (Encounter Diagnosis) L97.322 - Non-pressure chronic ulcer of left ankle with fat layer exposed (Encounter Diagnosis) T81.31XD - Disruption of external operation (surgical) wound, not elsewhere classified, subsequent encounter (Encounter Diagnosis) B95.2 - Enterococcus as the cause of diseases classified elsewhere PROCEDURES Wound #2 Wound #2 (Surgical Wound) is located on the left, lateral ankle. A skin/ subcutaneous tissue level surgical debridement with a total area debrided of 0.3 sq cm was performed by Isidoro Sifuentes MD. Subcutaneous was removed along with devitalized tissue: slough. The following instrument(s) were used: curette and forceps. Pain control was achieved using N/ A. A time out was conducted prior to the start of the procedure. A minimal amount of bleeding was controlled with n/a. The procedure was tolerated well with a pain level of 5 throughout and a pain level of 2 following the procedure. Post Debridement Measurements: 1cm length x 0.3cm width x 0.4cm depth; with an area of 0.3 sq cm and a volume of 0.12 cubic cm; General Notes: Procedure paused when patient expressed pain. Wound #2 (Surgical Wound) is located on the left, lateral ankle. A Disposable Wound Vac Application < 50 Sq Cm procedure was performed for the lower left extremity by Isidoro Sifuentes MD. A time out was conducted prior to the start of the procedure. The procedure was tolerated well. General Notes: SNAP 10x10 dressings and 125mmhg canister applied. Additional Information Muscle fascia or bone removed and sent to pathology?: No PLAN Wound Orders: Wound #2 Left, Lateral Ankle Cleanser Cleanse Wound: - Normal saline and gauze. May Shower. - Cover with cast protector. Dressings SNAP Dressing - [id number] dressing, 125mmHg canister. Please observe to make sure the snap is not in the red. Additional Orders: Follow-Up Appointments Return Appointment: - - Saturday and Saturday for SNAP dressing change. Other information: If you develop fever, chills, increased pain, drainage, redness or swelling please call our office. If after hours, respond to the ER. Should you experience any significant changes in your wound(s) or have any questions regarding your home care instructions please contact the wound center @ [phone]. If after hours, contact your primary care physician or go to the hospital emergency room. Scribing Attestation I attest, as the nurse, that I scribed these orders for the physician. I've reviewed the clinician's documentation and agree with the evaluation and plan as written. In addition the patient's wound demonstrates evidence of non-viable devitalized tissue which will continue to benefit from sharp debridement to help promote granulation and expedite healing. Negative pressure wound therapy will be utilized to facilitate granulation and removal of exudate and infectious material with the goal of expediting wound healing. Also, we'll defer additional antibiotics for now and consider repeating a wound culture on Saturday. If the wound deteriorates we'll consider a bone scan to re-evaluate for refractory osteomyelitis. Electronic Signature(s) Signed By: Date: Isidoro Sifuentes MD 05/22/2018 08:46:21 Entered By: Isidoro Sifuentes on 05/20/2018 09:31:37
== END ==
PROVIDERS: PCP Family Medicine; Visit Provider Internal Medicine
DX: L97.322 Non-pressure chronic ulcer of left ankle with fat layer exposed (principal); T81.31XA Disruption of external operation (surgical) wound, not elsewhere classified, initial encounter; B95.2 Enterococcus as the cause of diseases classified elsewhere
CPT/HCPCS: 11042; 97607

== ENCOUNTER → 2018-05-23 15:53 | Outpatient (CLI) | payer MEDICARE, SELFPAY ==
--- NOTE | 2018-05-23 | OV.WND_ITS ---
Progress Note Details Patient Name: Kristine Damon Patient Number: [id number] PatientPatientDate: 05/23/2018 Clinician: Erlinda Malave Clinician Cosigner: Cyn Gong Physician / School Traffic Supervisor: Isidoro Sifuentes SUBJECTIVE Chief Complaint This information was obtained from the patient Wound to left lateral ankle. Allergies penicillin, prednisone, cephalexin, codeine, acetaminophen, hydrocodone, ketorolac HPI This information was obtained from the patient 05/23/18. Seen by Dr. Sifuentes. The patient does not report increased pain or drainage associated with the chronic left lateral malleolus surgical wound since her last visit and she's tolerating NPWT without difficulty. 05/20/18. Seen by Dr. Sifuentes. The patient does not report increased pain or drainage associated with the chronic left lateral malleolus surgical wound since her last visit and she's tolerating NPWT without difficulty. She continues on IV vancomycin during dialysis for the recent and reccurrent Enterococcus positive wound culture also however notes 2 doses were accidentally missed during dialysis last week. Her regimen completes today and her MRI of the ankle was inconclusive regarding the presence of osteomyelitis. 05/16/18. Seen by Dr. Sifuentes. The patient does not report increased pain or drainage associated with the chronic left lateral malleolus surgical wound since her last visit and she's tolerating NPWT without difficulty. She continues on IV vancomycin during dialysis for the recent Enterococcus positive wound culture also. Her MRI which was performed to re-evaluate the calcaneal stress fracture reports a cortical irregularity along the lateral malleolus that may represent osteomyelitis but must be considered in the context of her surgical debridement also. 05/13/18. Seen by Dr. Sifuentes. The patient reports continued pain in the left lateral malleolus posterior to the surgical wound and she has an MRI scheduled for this morning to evaluate the source of the pain. She also continues on IV vancomycin that's treating the recurrent Enterococcus positive culture and being infused during dialysis. She does not report fevers or feeling unwell otherwise and is tolerating negative pressure wound therapy without difficulty. 05/09/18. Seen by Shon Barlow PA-C. The patient continues on Vancomycin for her left malleolar wound infection which demonstrates stable drainage this week. 05/06/18. Seen by Shon Barlow PA-C. The patient reports stable drainage from her left malleolar wound and continues on Vancomycin to treat the Enterococcus infection of this wound. 05/02/18. Seen by Dr. Sifuentes. The patient reports improvement in the left foot pain and does not report increased drainage or other acute issues regarding the left lateral malleolus surgical wound that's being treated with negative pressure wound therapy. She's also continues on IV vancomycin during dialysis that's treating the recent Enterococcus positive wound culture. 04/29/18. Seen by Dr. Sifuentes. The patient reports improvement in the left foot pain over the past week and does not report increased drainage or other acute issues regarding the left lateral malleolus surgical wound that's being treated with negative pressure wound therapy. She's also now had 2 doses of IV vancomycin during dialysis this week that's treating the recent Enterococcus positive wound culture. 04/25/18. Seen by Dr. Sifuentes. The patient reports improvement in terms of pain associated with the chronic left lateral malleolus surgical wound since starting on IV vancomycin for the recently Enterococcus positive wound culture. She does not report adverse side effects and is receiving her antibiotics during dialysis. 04/22/18. Seen by Dr. Sifuentes. The patient reports some continued pain associated with the chronic left lateral malleolus surgical wound and she's been applying topical gentamicin to treat the recent Enterococcus positive wound culture. Her wound vac was discontinued last week also. Of note. she takes citalopram which complicates treating her wound infection with oral antibiotics and is also on dialysis for end stage renal disease and has received IV vancomycin without difficulty for her previous Enterococcus wound infections. 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 04/18/18. Seen by Dr. Sifuentes. The patient reports decreased pain associated with the chronic left lateral malleolus surgical wound over the past week since we held her wound vac. Her culture grew Enterococcus and she's not currently on antibiotics for this. Of note, her wound healing is complicated considerably by her end stage renal disease and being on dialysis and the wound is a result of deep bone debridement that was performed for chronic osteomyelitis of the malleolus. 04/15/18. Seen by Dr. Sifuentes. The patient continues to report persistent pain associated with the chronic left lateral malleolus surgical wound however she does not report increased drainage and has tolerated NPWT with the SNAP wound vac without difficulty. She' s now been off of antibiotics for the past month and underwent surgical bone debridement for chronic osteomyeylitis of the malleolus in late January. 04/11/18. Seen by Dr. Sifuentes. The patient does not report any new acute issues regarding her chronic left lateral malleolus surgical wound and she's tolerating NPWT with the SNAP wound vac without difficulty. 04/08/18. Seen by Dr. Sifuentes. The patient does not report any new acute issues regarding her chronic left lateral malleolus surgical wound and she's tolerating NPWT with the SNAP wound vac without difficulty. 04/04/18. Seen by Dr. Sifuentes. The patient continues to report pain associated with the chronic left lateral malleolus surgical wound despite the fact we discontinued NPWT at her last visit. Her wound culture grew only yeast and Diptheroids. 04/01/2018. Seen by Dr. Sifuentes. The patient continues to report pain associated with the chronic left lateral malleolus surgical wound. She does not report significant drainage from the site and has tolerated negative pressure wound therapy. She is not currently on antibiotics and has no other acute complaints today. 03/28/18. Seen by Dr. Sifuentes. The patient does not report significant pain nor drainage associated chronic left lateral malleolus surgical wound since her last visit and she's tolerating NPWT with the SNAP wound vac without difficulty. 03/25/18. Seen by Dr. Sifuentes. The patient continues to report pain throughout the midfoot and dorsum of the left foot that limits her ability to walk to only a couple of minutes at a time. She does not report any changes regarding the left lateral ankle surgical wound and is tolerating negative pressure wound therapy without difficulty. She's also not currently on oral antibiotics. 03/18/18. Seen by Dr. Sifuentes. The patient reports intermittent pain associated with the left lateral ankle however shoes are report increased drainage from the lateral malleolus surgical wound since her last visit. She is also tolerating negative pressure wound therapy without difficulty. 03/11/18. Seen by Dr Sifuentes.The patient reports some intermittent pain in the left lateral ankle when bearing weight but does not report significant drainage associated with the left lateral malleolus surgical wound since her last visit. She was changed from ciprofloxacin to doxycycline based on the recent culture growing a resistant coag negative staph organism. She does not report adverse side effects, fevers, or other acute issues today. 03/04/18. Seen by Dr. Sifuentes. The patient does not report significant pain nor drainage associated chronic left lateral malleolus surgical wound since her last visit. She continues on ciprofloxacin for chronic osteomyelitis also without reported adverse side effects. 02/25/18. Seen by Dr. Sifuentes. 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 She saw Dr. John last week and will start to use a bone stimulator to help heal the pathologic fracture. She does not report significant drainage associated with the left lateral malleolus surgical wound. 02/18/18. Seen by Dr. Sifuentes. The patient reports ongoing, but decreasing, pain associated with the left lateral malleolus surgical wound and she continues on ciprofloxacin and Flagy for chronic osteomyelitis without reporting adverse side effects. She'll see her surgeon, Dr. John, this . 02/14/18. Seen by Dr. Sifuentes. The patient reports decreased pain associated with the left lateral malleolus surgical wound and staff report only a moderate amount of drainage on the ROMEL wound vac dressing. She continues on cipro and Flagyl for chronic osteomyelitis and does not report adverse side effects or feeling unwell in general. 02/11/18. Seen by Dr. Sifuentes. The patient continues to report some persistent pain associated with the chronic left lateral malleolus surgical wound since her last visit. She does not report increased drainage however and is scheduled to see Dr. John, her orthopedic surgeon, next Saturday. She continues on ciprofloxacin and Flagyl as well and her surgery was a deep bone debridement to address the chronic osteomyelitis of the malleolus. 02/07/18. Seen by Dr. Sifuentes. 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 John. She reports some persistent discomfort at the wound site and is now on ciprofloxacin and Flagyl. Culture results of the execised bone are not yet available and the patient does not report any adverse side effects from the antibiotics, fevers, nor feeling unwell. 11/27/17. Seen by Dr. Sifuentes. The patient does not report pain associated with the chronic left lateral malleolus ulcer however she does describe diffuse pain throughout the lateral aspect of the foot and heel. She states this has been present for 6 weeks however has not raised the issue at our clinic until last week. She was seen by her primary care provider who subsequently ordered an MRI that revealed a nondisplaced fracture of the calcaneus. The MRI did mention also that the chronic osteomyelitis of the lateral malleolus appears to have improved from the previous imaging. 11/06/17. Seen by Dr. Sifuentes. The patient does not report significant pain or drainage associated with the chronic left lateral malleolar nonpressure ulcers since her last visit. She stop using a dressing due to pain and feels this has resolved in the interim. She's also asked that I look at a finger on her right hand that's been slow to heal since her dog scratched her a few weeks ago. She does not report pain at the site but states it's been draining a bit. 10/23/17. Seen by Dr. Sifuentes. The patient reports some persistent and modest pain associated with chronic left lateral malleolar nonpressure ulcer since her last visit. Does not report increased drainage and has been applying topical gentamicin to treat the recurrent cognitive staph wound infection. 10/02/17. The patient reports some intermittent pain associated with chronic left lateral malleolar nonpressure ulcer since her last visit however does not report increased drainage. 09/10/17. Seen by Shon Barlow PA-C. The patient reports no increase in drainage from her left lateral malleolar ulcer. She continues to abstain from smoking. 08/20/17. Seen by Dr. Sifuentes. The patient does not report significant pain or drainage associated with the chronic left lateral malleolar nonpressure ulcers since her last visit. She applying OTC topical antibiotic as prescribed to treat a recurrent wound infection noted at her last visit. 08/06/17. Seen by Dr. Sifuentes. The patient does not report significant pain or drainage associated with the chronic left lateral malleolar nonpressure ulcers since her last visit. 07/16/17. Seen by Dr. Sifuentes. The patient does not report pain or significant drainage associated with the chronic left lateral malleolar nonpressure ulcers since her last visit. 07/09/17. Seen by Dr. Sifuentes. The patient reports some intermittent pain associated with chronic left lateral malleolar nonpressure ulcer since her last visit however does not report increased drainage. 06/27/17. Seen by Dr. Sifeuntes. The patient does not report pain or significant drainage associated with the chronic left lateral malleolar ulcer since her last visit. She feels her previously reported symptoms have improved since starting on levofloxacin for the polymicrobial wound culture following her last visit. 06/20/17. Seen by Dr. Sifuentes. The patient reports some burning associated with the left lateral chronic malleoli are not pressure ulcer. Her wound culture grew stenotrophomonas , enterococcus, and a coag-negative staph. She started on levofloxacin for this to be taken around her dialysis schedule. She does not report fevers or feeling unwell. 06/13/17. Seen by Shon Barlow PA-C. The patient reports that the steri-strips that were used to reduce wound tension were painful and she removed them. Her ulcer at that time grew E.coli which she has finished her antibiotic treatment for. 05/30/17. Seen by Dr. Sifuentes. The patient reports increased pain and drainage associated with the chronic left lateral malleolar ulcer over the past few days. She continues on dialysis and is scheduled to have cataract surgery later this week. She does not report fevers or feeling unwell and is not currently on antibiotics. 04/18/17. Seen by Dr. Sifuentes. The patient does not report pain or significant drainage the chronic left lateral malleolar ulcer over the past week. 03/28/17. Seen by Dr. Sifuentes. The patient does not report significant drainage or pain associated with the chronic left lateral malleolar non-pressure ulcer since her last visit. 03/07/17. Seen by Dr. Sifuentes. The patient does not report significant drainage or pain associated with the chronic left lateral malleolar non-pressure ulcer since her last visit. 02/14/17. Seen by Dr. Sifuentes. The patient feels the drainage from the chronic left lateral malleolar non-pressure ulcer noted at the last visit has decreased. Her wound culture grew Enterococcus and Enterobacter species however she did not tolerate her ciprofloxacin due to GI upset and stopped taking it after the few couple of doses. 02/05/17. Seen by Dr. Sifuentes. The patient does not report increased pain or drainage associated with chronic left lateral malleolar nonpressure ulcers since her last visit. 01/10/17. Seen by Dr. Sifuentes. The patient reports no increase in pain or significant drainage associated with the chronic left lateral malleolar nonpressure ulcer since her last visit. 12/20/16. Seen by Dr. Sifuentes. The patient does not report drainage associated with the chronic left lateral malleolus ulcer since her last visit. 11/29/16. Seen by Dr. Sifuentes. The patient does not report significant drainage associated with the chronic left lateral malleolus ulcer since her last visit. 11/08/16. Seen by Dr. Sifuentes. The patient does not report pain or significant drainage associated with the chronic left lateral malleolus ulcer since her last visit. 10/18/16 Seen by Shon Barlow PA-C. The patient does not report any change in pain or drainage from her chronic left lateral malleolar ulcer since her last evaluation. 10/04/16. Seen by Dr. Sifuentes. The patient does not report pain or significant drainage associated with the chronic left lateral malleolus ulcer. She continues to apply gentamicin cream at each dressing change due to chronic and recurring infections at the ulcer site. 09/27/16. Seen by Dr. Sifuentes.The patient does not report significant drainage or pain associated with chronic left lateral malleolus on pressure ulcer since her last visit. She continues to apply topical gentamicin ointment for the chronic wound infection. 09/13/16. Seen by Dr. Sifuentes. The patient reports scant drainage and no pain associated with the chronic left lateral malleolar non-pressure ulcer and she's applying topical gentamicin daily to treat the recent polymicrobial wound infection as recommended. 09/04/16 Seen by Shon Barlow PA-C. The patient reports minimal drainage and she is attempting to offload the ulcer area when she sleeps using a [place]-saver ankle protector. 08/30/16. Seen by Dr. Sifuentes. The patient reports increased pain and drainage associated with the chronic left lateral malleolr non-pressure ulcer over the past week but she does not report fevers or feeling unwell. Her wound culture from the last visit grew Enterobacter, E. coli, and a coag negative Staph and she started taking Bactrim and applying topical gentamicin yesterday. She's on a 1/2 dose of Bactrim due to her end stage renal disease. 08/23/16. Seen by Dr. Sifuentes. The patient reports some increased drainage on her dressing covering the chronic left lateral malleolar non-pressure ulcer. She does no report pain however nor fevers or feeling unwell. 08/09/16. Seen by Dr. Sifuentes. The patient does not report drainage or pain associated with the chronic left lateral malleolar ulcer. 07/26/16. Seen by Dr. Sifuentes. The patient does not report drainage or pain associated with the chronic left lateral malleolar ulcer since her last visit. 07/11/16. Seen by Dr. Sifuentes. The patient does not report drainage or pain associated with the chronic left lateral malleolar ulcer since her visit last week. 06/21/16 Seen by Shon Barlow PA-C. The patient reports no change in drainage from her left lateral malleolus ulcer. 06/14/16. Seen by Dr. Sifuentes. The patient reportedly minimal drainage associated with the chronic left lateral malleolus ulcer since her last visit. Her arterial Doppler of the left leg was remarkable. 06/07/16. Seen by Dr. Sifuentes. The patient does not report pain or drainage associated with the chronic left lateral malleolar ulcer over the past week. 05/31/16. Seen by Dr. Sifuentes. The patient does not report pain or drainage associated with chronic left lateral malleolus nonpressure ulcer over the past week. Of note, her wound culture from the last visit grew a resistant coag negative Staph. She's not currently taking antibiotics. 05/24/[address] Sifuentes. The patient does not report increased pain or drainage associated with the chronic left lateral malleolar non-pressure ulcer over the past week. 05/17/[address] Sifuentes. The patient does not report pain associated with the chronic left lateral malleolar non-pressure ulcer over the past week and there's only a scant amount of drainage on her dressing today. 05/10/[address] Sifuentes. The patient does not report pain or drainage associated with the chronic left lateral malleolar ulcer or associated underlying malleolar chronic osteomyelitis over the past week. Of note, she had another Epifix skin substitute placed last week. 05/03/[address] Sifuentes. The patient does not report pain or drainage associated with the left lateral malleolar non-pressure ulcer over the past week and she's tolerating HBOT, which is treating associated underlying chronic osteomyelitis, without reporting any issues. 04/26/16 Seen by Shon Barlow PA-C. The patient reports no noted change in her chronic left lateral malleolar ulcer since her last evaluation. 04/19/[address] Sifuentes. The patient does not report pain or drainage associated with the chronic left lateral malleolar non-pressure ulcer nor underlying chronic osteomyelitis. She continues with HBOT but has completed an 8 week course of IV vancomycin. 04/12/[address] Sifuentes. The patient does not report drainage or pain associated with her chronic left lateral malleolar ulcer and underlying chronic osteomyelitis. She' s received 3 placements of Epifix recently and continues with HBOT in addition to an extended course of IV vancomycin. Her wound culture from 04/05/16 showed no organisms and had no growth. 04/05/[address] Sifuentes. The patient does not report pain or drainage from her chronic left lateral malleolar non-pressure ulcer and she continues on IV vancomycin for chronic osteomyelitis of the underlying malleolus. 03/29/[address] Sifuentes. The patient does not report pain or drainage associated with her chronic left lateral malleolar non-pressure ulcer and she continues on IV vancomycin and hyperbaric therapy for underlying chronic osteomyelitis of the malleolus. 03/22/[address] Sifuentes. The patient does not report pain or drainage associated with the chronic left lateral malleolar non-pressure ulcer. 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 She also states she's no longer smoking. 03/06/16 Seen by Shon Barlow PA-C. The patient is changing her dressing daily, as instructed but now reports decreased drainage from her ulcer. 03/01/[address] Sifuentes. The patient does not report pain or significant drainage associated with her chronic left lateral malleolar ulcer and she continues on IV vancomycin and hyperbaric oxygen therapy for underlying chronic osteomyelitis of the lateral malleolus. 02/14/16 Seen by Shon Barlow PA-C. The patient feels her left malleolar ulcer with underlying chronic osteomyelitis may be larger and has been draining more since her last evaluation. She continues on doxycycline and her ulcer culture grew a staph Spp. and E Faecalis both of which were highly resistant. She reports that she is only smoking a few cigarettes per day. Her dialysis continues at 2 times weekly. Her COPD is stable on current medications with no recent exacerbations. 02/08/[address] Sifuentes. The patient does not report pain associated with the chronic left lateral malleolar non-pressure ulcer however the staff report brown drainage on her dressing today. She continues on doxycycline for a recent polymicrobial resistant Staph culture and her recent bone scan on 01/26/16 show's persistent left lateral malleolar osteomyelitis while reporting interval improvement from her previous scan on 09/29/15. She does not report fevers or feeling unwell and she also reports that she's significantly reduced her smoking over the past week. 01/26/[address] Sifuentes. The patient does not report pain associated with the chronic left lateral malleolar non-pressure ulcer nor does she report any problems with the wound vac. She continues on doxycycline without reporting adverse side effects and her bone scan shows persistence of osteomyelitis beneath the ulcer with interval improvement from that of 09/29/16. 01/19/[address] Sifuentes. The patient does not report pain associated with the chronic left lateral malleolar non-pressure ulcer nor any problems with the wound vac. She continues on doxycycline also for a resistant coag neg Staph culture and does not report adverse side effects. 01/12/[address] Sifuentes. The patient does not report pain or significant drainage associated with the chronic left lateral malleolar ulcer. She also is now on doxycycline for a resistant coag neg Staph culture from 12/28/15 and does not report adverse effects. 01/04/[address] Sifuentes. The patient reports some increased pain just proximal to the chronic left lateral malleolar non-pressure ulcer. She's currently using only topical gentamicin to treat an intermediately resistant coag negative Staph culture from the ulcer. 12/28/[address] Sifuentes. The patient does not report drainage and reports only minimal pain associated with the chronic left lateral malleolar ulcer. Her wound culture grew only resistant Staph epi. 12/21/[address] Sifuentes. The patient does not report pain or drainage associated with the chronic left lateral malleolar ulcer and she's continues off of antibiotics. 12/07/2015 Seen by Shon Barlow PA-C. The patient's moxifloxacin has now finished and she does not report any change in left ankle pain or drainage. 11/30/2015 Seen by Shon Barlow PA-C. The patient's moxifloxacin prescription continues for 1 more week. She is currently not undergoing adjunctive hyperbaric oxygen treatments. She reports no change in ulcer pain. 11/25/[address] Sifuentes. The patient does not report any new issues regarding her chronic left lateral malleolar non-pressure ulcer however the staff report some moderate maceration. 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 11/15/15 Seen by Shon Barlow PA-C. The patient will complete her last Vancomycin infusion tomorrow and will then discontinue this antibiotic and discontinue 3x weekly dialysis and resume twice weekly dialysis. Her ulcer, overlying chronic osteomyelitis has been draining minimally and has not been reportedly painful since her last evaluation. She is now weaned off of citalopram (which had interactions with Moxifloxacin, which we originally wanted to prescribe) and she reports no depression symptoms. 11/08/15 Seen by Shon Barlow PA-C. The patient does not report increased pain or drainage from her ulcer with underlying osteomyelitis. She continues on Vancomycin. 11/03/[address] Sifuentes. The patient does not report pain and only scant drainage from the chronic left lateral malleolar ulcer and underlying chronic osteomyelitis. She's on day 24 of IV vancomycin for the Enterococcus positive wound culture and HBOT for chronic osteomyelitis. 10/27/[address] Sifuentes. The patient reports minimal discomfort and scant drainage from the left lateral malleolar ulcer and underlying chronic osteomyelitis. She continues on IV vancomycin for this problem as well as HBOT without reporting problems. 10/19/15 Seen by Shon Barlow PA-C. The patient reports a stable appearance of her ulcer. She is going to begin 3x weekly dialysis due to the administration of Vancomycin. When she completes her Vancomycin course she will resume twice weekly dialysis. 10/12/[address] Sifuentes. The patient states she's had 5 episodes of diarrhea this morning and complains of some mild left sided abdominal pain. She's been started on IV vancomycin for the left lateral malleolar ulcer cultured for Enterococcus and is under the care of her envelope sealer, Dr. Lorenzana, regarding dosing around her dialysis. She does not report drainage nor significant discomfort associated with ulcer nor underlying chronic osteomyelitis of the malleolus and continues with HBOT as adjuvant therapy without reporting problems. 10/06/[address] Sifuentes. The patient continues to report some discomfort regarding her left lateral malleolar ulcer and underlying chronic osteomyelitis. She's seen Dr. Silva, her PCP, whose started a taper of her Celexa over the next 6 weeks due to a potentially serious interaction with fluorquinolone antibiotics which could eventually be useful in treating the Enterococcus faecalis positive wound culture from 09/28/15. She does not report fever or other acute issues currently and has been off of antibiotics for the past week due to the limited options based on sensitivities. She's continued HBOT over this period while we' ve attempted to find an appropriate antibiotic solution. Of note, her bone scan from 09/29/15 confirms persistence of chronic osteomyelitis also. 09/14/15 Seen by Shon Barlow PA-C. The patient reports no difficulty with her doxycycline or HBOT treatments. Her ankle ulcer continues to drain and she has not observed much change. 09/07/[address] Sifuentes. The patient does not report significant pain or drainage associated with her left lateral malleolar ulcer and she continues on doxycycline for associated chronic osteomyelitis without reporting adverse side effects. She's also tolerating HBOT without reporting any problems. 08/24/[address] Sifuentes. The patient reports increased pain and redness in the periwound area of the left lateral malleolar ulcer that overlies the site of chronic osteomyelitis. She does not report fever, chills, sweats, or increased drainage. Her wound culture at the last visit was unremarkable despite being off of antibiotics. She's been approved for HBOT and currently does not report acute URI symptoms but states she has some chronic sinus congestion. Of note, her CXR was consistent with COPD. 08/17/[address] Sifuentes. The patient states her left lateral malleous is more tender than last week with some radiation of pain to the mid foot. She does not report increased 08/04/[address] Sifuentes. The patient attend the ER following our last visit and was sent to [facility] due to acute on chronic renal failure. She'd apparently become dehydrated due to nausea and vomiting and was dx with a small bowel obstruction. Of note, I'd contacted her to discontinue Bactrim, which she'd been on for about a month for left lateral malleolar osteomyelitis, due to her Cr increasing. This has since returned to it's baseline and she's currently not on antibiotics. She does not report increased pain, swelling or drainage associated with the overlying ulcer. She's also to complete the 2nd phase of her bone scan checking for persistence of osteomyelitis later today. 07/28/[address] Sifuentes. The patient does not report drainage or pain associated with the left lateral malleolar ulcer. She continues on an extended course of Bactrim for possible osteomyelitis which is concerning based on her history of chronic kidney disease requiring dialysis. She notes she still produces adequate urine but has not had her renal function checked since 07/05/15 when her Cr was 2.7. 07/20/[address] Sifuentes. The patient does not report any new issues such as pain or increased drainage from the left lateral malleolar ulcer. She continues on Bactrim for possible chronic osteomyelitis of the lateral malleolus. 07/13/[address] Sifuentes. The patient's new to our clinic and has been referred by Dr. Silva for a non-healing surgical wound following excision of a skin cancer ( type unconfirmed) at the left lateral malleolus. This was reportedly performed about 2 months ago and she's been on an extended course of Bactrim for the past month with some resolution in drainage and surrounding erythema. She has an MRI and bone scan of the site from the end of April that both raise suspicion for osteomyelities however. Otherwise her medical history is complicated by chronic renal failure requiring dialysis and a long history of smoking. She does not have a history of diabetes nor does she report rest pain, claudication, fever, sweats, or pain at the ulcer site. Past Medical History This information was obtained from the patient Patient has a medical history of: Depression Carpal tunnel Chronic renal Stage V (Cr 2.7 on 07/05/15; dialysis M, F) Unilateral nephrectomy Allergic rhinitis Hypertension Insomnia Lumbago Osteoporosis Peptic Ulcer Small bowel obstruction (recurrent) Chronic osteomyelitis (left lateral malleolus; dx on MRI and bone scan April 2015 ; reconfirmed on repeat bone scan 07/28/15; persistent but improved on 01/26/16 bone scan) COPD Chronic ulcer (left lateral malleolus) Complaints and Symptoms This information was obtained from the patient Patient complains of: General Notes: I have reviewed and concur with the Review of Systems and Past Family Social History documents completed by the clinician, I have reviewed and concur with the Wound Assessment document completed by the clinician Ear/Nose/Mouth/Throat: Hearing Loss / Aid Integumentary (Hair/Skin/Nails): Open Sore Prior Wound History: Drainage, Erythema, Pain Patient denies complaints or symptoms related to: Cardiovascular (Central/Peripheral): Intermittent Claudication, Lower extremity (leg) resting pain, Lower extremity (leg) swelling Constitutional Symptoms (General Health): Chills, Fever Gastrointestinal (GI): Nausea / Vomiting, Stomach/abdominal pain Hematologic/Lymphatic: Bleeding / Clotting Disorders, Bleeding Tendency Musculoskeletal: Deformities, Joint Swelling Neurological: Abnormal Gait, Loss of Protective Sensation Prior Wound History: Bleeding, Malodor Psychiatric: Memory Loss Respiratory: Oxygen Use, Shortness of Breath OBJECTIVE Constitutional Vital signs reviewed and noted. Well developed. Alert. Clean appearing.. Height/ Length: 60 in (152.4 cm), Weight: 99 lbs (45 kgs), BMI: 19.3, Temperature: 97.7 ?F (36.5 ?C), Pulse: 79 bpm, Respiratory Rate: 18 breaths/min, Blood Pressure: 109/53 mmHg, Pulse Oximetry: 98 %. Ears, Nose, Mouth, and Throat: Mild hearing deficit. Respiratory: No respiratory distress. Even respirations and without use of accessory muscles.. Integumentary (Hair, Skin) No periwound erythema, warmth, or significant drainage. No periwound rashes appreciated or noted otherwise.. Refer to appropriate clinician wound documentation for this visit; left lateral malleolus ulcer extends to subcut with visible base covered with pink granulation; smaller and less deep than on previous review. Wound #2 Left, Lateral Ankle is an acute Full Thickness Surgical Wound and has received a status of Not Healed. Subsequent wound encounter measurements are 0.9cm length x 0.2cm width x 0.2cm depth, with an area of 0.18 sq cm and a volume of 0.036 cubic cm. No tunneling has been noted. No sinus tract has been noted. No undermining has been noted. There is a small amount of serous drainage noted which has no odor. The patient reports a wound pain of level 4/10. The wound margin is attached. Wound bed has Yes epithelialization, No eschar, Yes slough, Yes pink, firm granulation. The periwound skin color is normal. The periwound skin exhibited: Edema, Maceration. The periwound skin did not exhibit: Brawny Induration, Excoriation, Induration, Callus, Crepitus, Fluctuance, Friable, Rash, Dry/Scaly, Moist. The temperature of the periwound skin is WNL. Periwound skin does not exhibit signs or symptoms of infection. Local Pulse is Palpable. Neurological: Cranial nerves grossly intact with symmetric function normal by informal observation.. ASSESSMENT Active Problems ICD-10 (Encounter Diagnosis) L97.322 - Non-pressure chronic ulcer of left ankle with fat layer exposed (Encounter Diagnosis) T81.31XD - Disruption of external operation (surgical) wound, not elsewhere classified, subsequent encounter PROCEDURES Wound #2 Wound #2 (Surgical Wound) is located on the left, lateral ankle. A non- selective mechanical debridement with a total area debrided of 0.18 sq cm was performed by Isidoro Sifuentes MD. Non-viable tissue was removed.The procedure was tolerated well with a pain level of 3 throughout and a pain level of 0 following the procedure. Post Debridement Measurements: 0.9cm length x 0.2cm width x 0.2cm depth; with an area of 0.18 sq cm and a volume of 0.036 cubic cm; Wound #2 (Surgical Wound) is located on the left, lateral ankle. A Disposable Wound Vac Application < 50 Sq Cm procedure was performed for the lower left extremity by Isidoro Sifuentes MD. A time out was conducted prior to the start of the procedure. The procedure was tolerated well. General Notes: ROMEL 4x8 PLAN Wound Orders: Wound #2 Left, Lateral Ankle Cleanser Cleanse Wound: - Normal saline and gauze. May Shower. - Cover with cast protector. Dressings Wound Vac: - ROMEL 4x8 Additional Orders: Follow-Up Appointments Return Appointment: - - Saturday Other information: If you develop fever, chills, increased pain, drainage, redness or swelling please call our office. If after hours, respond to the ER. Should you experience any significant changes in your wound(s) or have any questions regarding your home care instructions please contact the wound center @ [phone]. If after hours, contact your primary care physician or go to the hospital emergency room. Scribing Attestation I attest, as the nurse, that I scribed these orders for the physician. I've reviewed the clinician's documentation and agree with the evaluation and plan as written. Negative pressure wound therapy will be utilized to facilitate granulation and removal of exudate and infectious material with the goal of expediting wound healing. Electronic Signature(s) Signed By: Date: Isidoro Sifuentes MD 05/23/2018 15:59:11 Entered By: Isidoro Sifuentes on 05/23/2018 14:35:04
== END ==
PROVIDERS: PCP Family Medicine; Visit Provider Internal Medicine
DX: L97.322 Non-pressure chronic ulcer of left ankle with fat layer exposed (principal); T81.31XD Disruption of external operation (surgical) wound, not elsewhere classified, subsequent encounter
CPT/HCPCS: 97607

== ENCOUNTER → 2018-05-27 09:04 | Outpatient (CLI) | payer MEDICARE, SELFPAY ==
--- NOTE | 2018-05-27 | OV.WND_ITS ---
Progress Note Details Patient Name: Kristine Damon Patient Number: [id number] PatientPatientDate: 05/27/2018 Clinician: Jennifer Gonzales Physician / Sports Management Internship: Isidoro Sifuentes SUBJECTIVE Chief Complaint This information was obtained from the patient Wound to left lateral ankle. Allergies penicillin, prednisone, cephalexin, codeine, acetaminophen, hydrocodone, ketorolac HPI This information was obtained from the patient 05/27/18. Seen by Dr. Sifuentes. The patient does not report increased pain or drainage associated with the chronic left lateral malleolus surgical wound since her last visit and she's tolerating NPWT without difficulty. 05/23/18. Seen by Dr. Sifuentes. The patient does not report increased pain or drainage associated with the chronic left lateral malleolus surgical wound since her last visit and she's tolerating NPWT without difficulty. 05/20/18. Seen by Dr. Sifuentes. The patient does not report increased pain or drainage associated with the chronic left lateral malleolus surgical wound since her last visit and she's tolerating NPWT without difficulty. She continues on IV vancomycin during dialysis for the recent and reccurrent Enterococcus positive wound culture also however notes 2 doses were accidentally missed during dialysis last week. Her regimen completes today and her MRI of the ankle was inconclusive regarding the presence of osteomyelitis. 05/16/18. Seen by Dr. Sifuentes. The patient does not report increased pain or drainage associated with the chronic left lateral malleolus surgical wound since her last visit and she's tolerating NPWT without difficulty. She continues on IV vancomycin during dialysis for the recent Enterococcus positive wound culture also. Her MRI which was performed to re-evaluate the calcaneal stress fracture reports a cortical irregularity along the lateral malleolus that may represent osteomyelitis but must be considered in the context of her surgical debridement also. 05/13/18. Seen by Dr. Sifuentes. The patient reports continued pain in the left lateral malleolus posterior to the surgical wound and she has an MRI scheduled for this morning to evaluate the source of the pain. She also continues on IV vancomycin that's treating the recurrent Enterococcus positive culture and being infused during dialysis. She does not report fevers or feeling unwell otherwise and is tolerating negative pressure wound therapy without difficulty. 05/09/18. Seen by Shon Barlow PA-C. The patient continues on Vancomycin for her left malleolar wound infection which demonstrates stable drainage this week. 05/06/18. Seen by Shon Barlow PA-C. The patient reports stable drainage from her left malleolar wound and continues on Vancomycin to treat the Enterococcus infection of this wound. 05/02/18. Seen by Dr. Sifuentes. The patient reports improvement in the left foot pain and does not report increased drainage or other acute issues regarding the left lateral malleolus surgical wound that's being treated with negative pressure wound therapy. She's also continues on IV vancomycin during dialysis that's treating the recent Enterococcus positive wound culture. 04/29/18. Seen by Dr. Sifuentes. The patient reports improvement in the left foot pain over the past week and does not report increased drainage or other acute issues regarding the left lateral malleolus surgical wound that's being treated with negative pressure wound therapy. She's also now had 2 doses of IV vancomycin during dialysis this week that's treating the recent Enterococcus positive wound culture. 04/25/18. Seen by Dr. Sifuentes. The patient reports improvement in terms of pain associated with the chronic left lateral malleolus surgical wound since starting on IV vancomycin for the recently Enterococcus positive wound culture. She does not report adverse side effects and is receiving her antibiotics during dialysis. 04/22/18. Seen by Dr. Sifuentes. The patient reports some continued pain associated with the chronic left lateral malleolus surgical wound and she's been applying topical gentamicin to treat the recent Enterococcus positive wound culture. Her wound vac was discontinued last week also. Of note. she takes citalopram which complicates treating her wound infection with oral antibiotics and is also on dialysis for end stage renal disease and has received IV vancomycin without difficulty for her previous Enterococcus wound infections. 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 04/18/18. Seen by Dr. Sifuentes. The patient reports decreased pain associated with the chronic left lateral malleolus surgical wound over the past week since we held her wound vac. Her culture grew Enterococcus and she's not currently on antibiotics for this. Of note, her wound healing is complicated considerably by her end stage renal disease and being on dialysis and the wound is a result of deep bone debridement that was performed for chronic osteomyelitis of the malleolus. 04/15/18. Seen by Dr. Sifuentes. The patient continues to report persistent pain associated with the chronic left lateral malleolus surgical wound however she does not report increased drainage and has tolerated NPWT with the SNAP wound vac without difficulty. She' s now been off of antibiotics for the past month and underwent surgical bone debridement for chronic osteomyeylitis of the malleolus in late January. 04/11/18. Seen by Dr. Sifuentes. The patient does not report any new acute issues regarding her chronic left lateral malleolus surgical wound and she's tolerating NPWT with the SNAP wound vac without difficulty. 04/08/18. Seen by Dr. Sifuentes. The patient does not report any new acute issues regarding her chronic left lateral malleolus surgical wound and she's tolerating NPWT with the SNAP wound vac without difficulty. 04/04/18. Seen by Dr. Sifuentes. The patient continues to report pain associated with the chronic left lateral malleolus surgical wound despite the fact we discontinued NPWT at her last visit. Her wound culture grew only yeast and Diptheroids. 04/01/2018. Seen by Dr. Sifuentes. The patient continues to report pain associated with the chronic left lateral malleolus surgical wound. She does not report significant drainage from the site and has tolerated negative pressure wound therapy. She is not currently on antibiotics and has no other acute complaints today. 03/28/18. Seen by Dr. Sifuentes. The patient does not report significant pain nor drainage associated chronic left lateral malleolus surgical wound since her last visit and she's tolerating NPWT with the SNAP wound vac without difficulty. 03/25/18. Seen by Dr. Sifuentes. The patient continues to report pain throughout the midfoot and dorsum of the left foot that limits her ability to walk to only a couple of minutes at a time. She does not report any changes regarding the left lateral ankle surgical wound and is tolerating negative pressure wound therapy without difficulty. She's also not currently on oral antibiotics. 03/18/18. Seen by Dr. Sifuentes. The patient reports intermittent pain associated with the left lateral ankle however shoes are report increased drainage from the lateral malleolus surgical wound since her last visit. She is also tolerating negative pressure wound therapy without difficulty. 03/11/18. Seen by Dr Sifuentes.The patient reports some intermittent pain in the left lateral ankle when bearing weight but does not report significant drainage associated with the left lateral malleolus surgical wound since her last visit. She was changed from ciprofloxacin to doxycycline based on the recent culture growing a resistant coag negative staph organism. She does not report adverse side effects, fevers, or other acute issues today. 03/04/18. Seen by Dr. Sifuentes. The patient does not report significant pain nor drainage associated chronic left lateral malleolus surgical wound since her last visit. She continues on ciprofloxacin for chronic osteomyelitis also without reported adverse side effects. 02/25/18. Seen by Dr. Sifuentes. 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 She saw Dr. John last week and will start to use a bone stimulator to help heal the pathologic fracture. She does not report significant drainage associated with the left lateral malleolus surgical wound. 02/18/18. Seen by Dr. Sifuentes. The patient reports ongoing, but decreasing, pain associated with the left lateral malleolus surgical wound and she continues on ciprofloxacin and Flagy for chronic osteomyelitis without reporting adverse side effects. She'll see her surgeon, Dr. John, this . 02/14/18. Seen by Dr. Sifuentes. The patient reports decreased pain associated with the left lateral malleolus surgical wound and staff report only a moderate amount of drainage on the ROMEL wound vac dressing. She continues on cipro and Flagyl for chronic osteomyelitis and does not report adverse side effects or feeling unwell in general. 02/11/18. Seen by Dr. Sifuentes. The patient continues to report some persistent pain associated with the chronic left lateral malleolus surgical wound since her last visit. She does not report increased drainage however and is scheduled to see Dr. John, her orthopedic surgeon, next Saturday. She continues on ciprofloxacin and Flagyl as well and her surgery was a deep bone debridement to address the chronic osteomyelitis of the malleolus. 02/07/18. Seen by Dr. Sifuentes. 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 John. She reports some persistent discomfort at the wound site and is now on ciprofloxacin and Flagyl. Culture results of the execised bone are not yet available and the patient does not report any adverse side effects from the antibiotics, fevers, nor feeling unwell. 11/27/17. Seen by Dr. Sifuentes. The patient does not report pain associated with the chronic left lateral malleolus ulcer however she does describe diffuse pain throughout the lateral aspect of the foot and heel. She states this has been present for 6 weeks however has not raised the issue at our clinic until last week. She was seen by her primary care provider who subsequently ordered an MRI that revealed a nondisplaced fracture of the calcaneus. The MRI did mention also that the chronic osteomyelitis of the lateral malleolus appears to have improved from the previous imaging. 11/06/17. Seen by Dr. Sifuentes. The patient does not report significant pain or drainage associated with the chronic left lateral malleolar nonpressure ulcers since her last visit. She stop using a dressing due to pain and feels this has resolved in the interim. She's also asked that I look at a finger on her right hand that's been slow to heal since her dog scratched her a few weeks ago. She does not report pain at the site but states it's been draining a bit. 10/23/17. Seen by Dr. Sifuentes. The patient reports some persistent and modest pain associated with chronic left lateral malleolar nonpressure ulcer since her last visit. Does not report increased drainage and has been applying topical gentamicin to treat the recurrent cognitive staph wound infection. 10/02/17. The patient reports some intermittent pain associated with chronic left lateral malleolar nonpressure ulcer since her last visit however does not report increased drainage. 09/10/17. Seen by Shon Barlow PA-C. The patient reports no increase in drainage from her left lateral malleolar ulcer. She continues to abstain from smoking. 08/20/17. Seen by Dr. Sifuentes. The patient does not report significant pain or drainage associated with the chronic left lateral malleolar nonpressure ulcers since her last visit. She applying OTC topical antibiotic as prescribed to treat a recurrent wound infection noted at her last visit. 08/06/17. Seen by Dr. Sifuentes. The patient does not report significant pain or drainage associated with the chronic left lateral malleolar nonpressure ulcers since her last visit. 07/16/17. Seen by Dr. Sifuentes. The patient does not report pain or significant drainage associated with the chronic left lateral malleolar nonpressure ulcers since her last visit. 07/09/17. Seen by Dr. Sifuentes. The patient reports some intermittent pain associated with chronic left lateral malleolar nonpressure ulcer since her last visit however does not report increased drainage. 06/27/17. Seen by Dr. Sifuentes. The patient does not report pain or significant drainage associated with the chronic left lateral malleolar ulcer since her last visit. She feels her previously reported symptoms have improved since starting on levofloxacin for the polymicrobial wound culture following her last visit. 06/20/17. Seen by Dr. Sifuentes. The patient reports some burning associated with the left lateral chronic malleoli are not pressure ulcer. Her wound culture grew stenotrophomonas , enterococcus, and a coag-negative staph. She started on levofloxacin for this to be taken around her dialysis schedule. She does not report fevers or feeling unwell. 06/13/17. Seen by Shon Barlow PA-C. The patient reports that the steri-strips that were used to reduce wound tension were painful and she removed them. Her ulcer at that time grew E.coli which she has finished her antibiotic treatment for. 05/30/17. Seen by Dr. Sifuentes. The patient reports increased pain and drainage associated with the chronic left lateral malleolar ulcer over the past few days. She continues on dialysis and is scheduled to have cataract surgery later this week. She does not report fevers or feeling unwell and is not currently on antibiotics. 04/18/17. Seen by Dr. Sifuentes. The patient does not report pain or significant drainage the chronic left lateral malleolar ulcer over the past week. 03/28/17. Seen by Dr. Sifuentes. The patient does not report significant drainage or pain associated with the chronic left lateral malleolar non-pressure ulcer since her last visit. 03/07/17. Seen by Dr. Sifuentes. The patient does not report significant drainage or pain associated with the chronic left lateral malleolar non-pressure ulcer since her last visit. 02/14/17. Seen by Dr. Sifuentes. The patient feels the drainage from the chronic left lateral malleolar non-pressure ulcer noted at the last visit has decreased. Her wound culture grew Enterococcus and Enterobacter species however she did not tolerate her ciprofloxacin due to GI upset and stopped taking it after the few couple of doses. 02/05/17. Seen by Dr. Sifuentes. The patient does not report increased pain or drainage associated with chronic left lateral malleolar nonpressure ulcers since her last visit. 01/10/17. Seen by Dr. Sifuentes. The patient reports no increase in pain or significant drainage associated with the chronic left lateral malleolar nonpressure ulcer since her last visit. 12/20/16. Seen by Dr. Sifuentes. The patient does not report drainage associated with the chronic left lateral malleolus ulcer since her last visit. 11/29/16. Seen by Dr. Sifuentes. The patient does not report significant drainage associated with the chronic left lateral malleolus ulcer since her last visit. 11/08/16. Seen by Dr. Sifuentes. The patient does not report pain or significant drainage associated with the chronic left lateral malleolus ulcer since her last visit. 10/18/16 Seen by Shon Barlow PA-C. The patient does not report any change in pain or drainage from her chronic left lateral malleolar ulcer since her last evaluation. 10/04/16. Seen by Dr. Sifuentes. The patient does not report pain or significant drainage associated with the chronic left lateral malleolus ulcer. She continues to apply gentamicin cream at each dressing change due to chronic and recurring infections at the ulcer site. 09/27/16. Seen by Dr. Sifuentes.The patient does not report significant drainage or pain associated with chronic left lateral malleolus on pressure ulcer since her last visit. She continues to apply topical gentamicin ointment for the chronic wound infection. 09/13/16. Seen by Dr. Sifuentes. The patient reports scant drainage and no pain associated with the chronic left lateral malleolar non-pressure ulcer and she's applying topical gentamicin daily to treat the recent polymicrobial wound infection as recommended. 09/04/16 Seen by Shon Barlow PA-C. The patient reports minimal drainage and she is attempting to offload the ulcer area when she sleeps using a [place]-saver ankle protector. 08/30/16. Seen by Dr. Sifuentes. The patient reports increased pain and drainage associated with the chronic left lateral malleolr non-pressure ulcer over the past week but she does not report fevers or feeling unwell. Her wound culture from the last visit grew Enterobacter, E. coli, and a coag negative Staph and she started taking Bactrim and applying topical gentamicin yesterday. She's on a 1/2 dose of Bactrim due to her end stage renal disease. 08/23/16. Seen by Dr. Sifuentes. The patient reports some increased drainage on her dressing covering the chronic left lateral malleolar non-pressure ulcer. She does no report pain however nor fevers or feeling unwell. 08/09/16. Seen by Dr. Sifuentes. The patient does not report drainage or pain associated with the chronic left lateral malleolar ulcer. 07/26/16. Seen by Dr. Sifuentes. The patient does not report drainage or pain associated with the chronic left lateral malleolar ulcer since her last visit. 07/11/16. Seen by Dr. Sifuentes. The patient does not report drainage or pain associated with the chronic left lateral malleolar ulcer since her visit last week. 06/21/16 Seen by Shon Barlow PA-C. The patient reports no change in drainage from her left lateral malleolus ulcer. 06/14/16. Seen by Dr. Sifuentes. The patient reportedly minimal drainage associated with the chronic left lateral malleolus ulcer since her last visit. Her arterial Doppler of the left leg was remarkable. 06/07/16. Seen by Dr. Sifuentes. The patient does not report pain or drainage associated with the chronic left lateral malleolar ulcer over the past week. 05/31/16. Seen by Dr. Sifuentes. The patient does not report pain or drainage associated with chronic left lateral malleolus nonpressure ulcer over the past week. Of note, her wound culture from the last visit grew a resistant coag negative Staph. She's not currently taking antibiotics. 05/24/[address] Sifuentes. The patient does not report increased pain or drainage associated with the chronic left lateral malleolar non-pressure ulcer over the past week. 05/17/[address] Sifuentes. The patient does not report pain associated with the chronic left lateral malleolar non-pressure ulcer over the past week and there's only a scant amount of drainage on her dressing today. 05/10/[address] Sifuentes. The patient does not report pain or drainage associated with the chronic left lateral malleolar ulcer or associated underlying malleolar chronic osteomyelitis over the past week. Of note, she had another Epifix skin substitute placed last week. 05/03/[address] Sifuentes. The patient does not report pain or drainage associated with the left lateral malleolar non-pressure ulcer over the past week and she's tolerating HBOT, which is treating associated underlying chronic osteomyelitis, without reporting any issues. 04/26/16 Seen by Shon Barlow PA-C. The patient reports no noted change in her chronic left lateral malleolar ulcer since her last evaluation. 04/19/[address] Sifuentes. The patient does not report pain or drainage associated with the chronic left lateral malleolar non-pressure ulcer nor underlying chronic osteomyelitis. She continues with HBOT but has completed an 8 week course of IV vancomycin. 04/12/[address] Sifuentes. The patient does not report drainage or pain associated with her chronic left lateral malleolar ulcer and underlying chronic osteomyelitis. She' s received 3 placements of Epifix recently and continues with HBOT in addition to an extended course of IV vancomycin. Her wound culture from 04/05/16 showed no organisms and had no growth. 04/05/[address] Sifuentes. The patient does not report pain or drainage from her chronic left lateral malleolar non-pressure ulcer and she continues on IV vancomycin for chronic osteomyelitis of the underlying malleolus. 03/29/[address] Sifuentes. The patient does not report pain or drainage associated with her chronic left lateral malleolar non-pressure ulcer and she continues on IV vancomycin and hyperbaric therapy for underlying chronic osteomyelitis of the malleolus. 03/22/[address] Sifuentes. The patient does not report pain or drainage associated with the chronic left lateral malleolar non-pressure ulcer. 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 She also states she's no longer smoking. 03/06/16 Seen by Shon Barlow PA-C. The patient is changing her dressing daily, as instructed but now reports decreased drainage from her ulcer. 03/01/[address] Sifuentes. The patient does not report pain or significant drainage associated with her chronic left lateral malleolar ulcer and she continues on IV vancomycin and hyperbaric oxygen therapy for underlying chronic osteomyelitis of the lateral malleolus. 02/14/16 Seen by Shon Barlow PA-C. The patient feels her left malleolar ulcer with underlying chronic osteomyelitis may be larger and has been draining more since her last evaluation. She continues on doxycycline and her ulcer culture grew a staph Spp. and E Faecalis both of which were highly resistant. She reports that she is only smoking a few cigarettes per day. Her dialysis continues at 2 times weekly. Her COPD is stable on current medications with no recent exacerbations. 02/08/[address] Sifuentes. The patient does not report pain associated with the chronic left lateral malleolar non-pressure ulcer however the staff report brown drainage on her dressing today. She continues on doxycycline for a recent polymicrobial resistant Staph culture and her recent bone scan on 01/26/16 show's persistent left lateral malleolar osteomyelitis while reporting interval improvement from her previous scan on 09/29/15. She does not report fevers or feeling unwell and she also reports that she's significantly reduced her smoking over the past week. 01/26/[address] Sifuentes. The patient does not report pain associated with the chronic left lateral malleolar non-pressure ulcer nor does she report any problems with the wound vac. She continues on doxycycline without reporting adverse side effects and her bone scan shows persistence of osteomyelitis beneath the ulcer with interval improvement from that of 09/29/16. 01/19/[address] Sifuentes. The patient does not report pain associated with the chronic left lateral malleolar non-pressure ulcer nor any problems with the wound vac. She continues on doxycycline also for a resistant coag neg Staph culture and does not report adverse side effects. 01/12/[address] Sifuentes. The patient does not report pain or significant drainage associated with the chronic left lateral malleolar ulcer. She also is now on doxycycline for a resistant coag neg Staph culture from 12/28/15 and does not report adverse effects. 01/04/[address] Sifuentes. The patient reports some increased pain just proximal to the chronic left lateral malleolar non-pressure ulcer. She's currently using only topical gentamicin to treat an intermediately resistant coag negative Staph culture from the ulcer. 12/28/[address] Sifuentes. The patient does not report drainage and reports only minimal pain associated with the chronic left lateral malleolar ulcer. Her wound culture grew only resistant Staph epi. 12/21/[address] Sifuentes. The patient does not report pain or drainage associated with the chronic left lateral malleolar ulcer and she's continues off of antibiotics. 12/07/2015 Seen by Shon Barlow PA-C. The patient's moxifloxacin has now finished and she does not report any change in left ankle pain or drainage. 11/30/2015 Seen by Shon Barlow PA-C. The patient's moxifloxacin prescription continues for 1 more week. She is currently not undergoing adjunctive hyperbaric oxygen treatments. She reports no change in ulcer pain. 11/25/[address] Sifuentes. The patient does not report any new issues regarding her chronic left lateral malleolar non-pressure ulcer however the staff report some moderate maceration. 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 11/15/15 Seen by Shon Barlow PA-C. The patient will complete her last Vancomycin infusion tomorrow and will then discontinue this antibiotic and discontinue 3x weekly dialysis and resume twice weekly dialysis. Her ulcer, overlying chronic osteomyelitis has been draining minimally and has not been reportedly painful since her last evaluation. She is now weaned off of citalopram (which had interactions with Moxifloxacin, which we originally wanted to prescribe) and she reports no depression symptoms. 11/08/15 Seen by Shon Barlow PA-C. The patient does not report increased pain or drainage from her ulcer with underlying osteomyelitis. She continues on Vancomycin. 11/03/[address] Sifuentes. The patient does not report pain and only scant drainage from the chronic left lateral malleolar ulcer and underlying chronic osteomyelitis. She's on day 24 of IV vancomycin for the Enterococcus positive wound culture and HBOT for chronic osteomyelitis. 10/27/[address] Sifuentes. The patient reports minimal discomfort and scant drainage from the left lateral malleolar ulcer and underlying chronic osteomyelitis. She continues on IV vancomycin for this problem as well as HBOT without reporting problems. 10/19/15 Seen by Shon Barlow PA-C. The patient reports a stable appearance of her ulcer. She is going to begin 3x weekly dialysis due to the administration of Vancomycin. When she completes her Vancomycin course she will resume twice weekly dialysis. 10/12/[address] Sifuentes. The patient states she's had 5 episodes of diarrhea this morning and complains of some mild left sided abdominal pain. She's been started on IV vancomycin for the left lateral malleolar ulcer cultured for Enterococcus and is under the care of her type caster, Dr. Lorenzana, regarding dosing around her dialysis. She does not report drainage nor significant discomfort associated with ulcer nor underlying chronic osteomyelitis of the malleolus and continues with HBOT as adjuvant therapy without reporting problems. 10/06/[address] Sifuentes. The patient continues to report some discomfort regarding her left lateral malleolar ulcer and underlying chronic osteomyelitis. She's seen Dr. Silva, her PCP, whose started a taper of her Celexa over the next 6 weeks due to a potentially serious interaction with fluorquinolone antibiotics which could eventually be useful in treating the Enterococcus faecalis positive wound culture from 09/28/15. She does not report fever or other acute issues currently and has been off of antibiotics for the past week due to the limited options based on sensitivities. She's continued HBOT over this period while we' ve attempted to find an appropriate antibiotic solution. Of note, her bone scan from 09/29/15 confirms persistence of chronic osteomyelitis also. 09/14/15 Seen by Shon Barlow PA-C. The patient reports no difficulty with her doxycycline or HBOT treatments. Her ankle ulcer continues to drain and she has not observed much change. 09/07/[address] Sifuentes. The patient does not report significant pain or drainage associated with her left lateral malleolar ulcer and she continues on doxycycline for associated chronic osteomyelitis without reporting adverse side effects. She's also tolerating HBOT without reporting any problems. 08/24/[address] Sifuentes. The patient reports increased pain and redness in the periwound area of the left lateral malleolar ulcer that overlies the site of chronic osteomyelitis. She does not report fever, chills, sweats, or increased drainage. Her wound culture at the last visit was unremarkable despite being off of antibiotics. She's been approved for HBOT and currently does not report acute URI symptoms but states she has some chronic sinus congestion. Of note, her CXR was consistent with COPD. 08/17/[address] Sifuentes. The patient states her left lateral malleous is more tender than last week with some radiation of pain to the mid foot. She does not report increased 08/04/[address] Sifuentes. The patient attend the ER following our last visit and was sent to [facility] due to acute on chronic renal failure. She'd apparently become dehydrated due to nausea and vomiting and was dx with a small bowel obstruction. Of note, I'd contacted her to discontinue Bactrim, which she'd been on for about a month for left lateral malleolar osteomyelitis, due to her Cr increasing. This has since returned to it's baseline and she's currently not on antibiotics. She does not report increased pain, swelling or drainage associated with the overlying ulcer. She's also to complete the 2nd phase of her bone scan checking for persistence of osteomyelitis later today. 07/28/[address] Sifuentes. The patient does not report drainage or pain associated with the left lateral malleolar ulcer. She continues on an extended course of Bactrim for possible osteomyelitis which is concerning based on her history of chronic kidney disease requiring dialysis. She notes she still produces adequate urine but has not had her renal function checked since 07/05/15 when her Cr was 2.7. 07/20/[address] Sifuentes. The patient does not report any new issues such as pain or increased drainage from the left lateral malleolar ulcer. She continues on Bactrim for possible chronic osteomyelitis of the lateral malleolus. 07/13/[address] Sifuentes. The patient's new to our clinic and has been referred by Dr. Silva for a non-healing surgical wound following excision of a skin cancer ( type unconfirmed) at the left lateral malleolus. This was reportedly performed about 2 months ago and she's been on an extended course of Bactrim for the past month with some resolution in drainage and surrounding erythema. She has an MRI and bone scan of the site from the end of April that both raise suspicion for osteomyelities however. Otherwise her medical history is complicated by chronic renal failure requiring dialysis and a long history of smoking. She does not have a history of diabetes nor does she report rest pain, claudication, fever, sweats, or pain at the ulcer site. Past Medical History This information was obtained from the patient Patient has a medical history of: Depression Carpal tunnel Chronic renal Stage V (Cr 2.7 on 07/05/15; dialysis M, F) Unilateral nephrectomy Allergic rhinitis Hypertension Insomnia Lumbago Osteoporosis Peptic Ulcer Small bowel obstruction (recurrent) Chronic osteomyelitis (left lateral malleolus; dx on MRI and bone scan April 2015 ; reconfirmed on repeat bone scan 07/28/15; persistent but improved on 01/26/16 bone scan) COPD Chronic ulcer (left lateral malleolus) Complaints and Symptoms This information was obtained from the patient Patient complains of: General Notes: I have reviewed and concur with the Review of Systems and Past Family Social History documents completed by the clinician, I have reviewed and concur with the Wound Assessment document completed by the clinician Ear/Nose/Mouth/Throat: Hearing Loss / Aid Integumentary (Hair/Skin/Nails): Open Sore Prior Wound History: Drainage, Erythema, Pain Patient denies complaints or symptoms related to: Cardiovascular (Central/Peripheral): Intermittent Claudication, Lower extremity (leg) resting pain, Lower extremity (leg) swelling Constitutional Symptoms (General Health): Chills, Fever Gastrointestinal (GI): Nausea / Vomiting, Stomach/abdominal pain Hematologic/Lymphatic: Bleeding / Clotting Disorders, Bleeding Tendency Musculoskeletal: Deformities, Joint Swelling Neurological: Abnormal Gait, Loss of Protective Sensation Prior Wound History: Bleeding, Malodor Psychiatric: Memory Loss Respiratory: Oxygen Use, Shortness of Breath OBJECTIVE Constitutional Vital signs reviewed and noted. Well developed. Alert. Clean appearing.. Height/ Length: 60 in (152.4 cm), Weight: 96.9 lbs (44.05 kgs), BMI: 18.9, Temperature: 98.1 ?F ( 36.72 ?C), Pulse: 62 bpm, Respiratory Rate: 16 breaths/min, Blood Pressure: 115/57 mmHg, Pulse Oximetry: 98 %. Ears, Nose, Mouth, and Throat: Mild hearing deficit. Cardiovascular: Affected extremity exhibits no peripheral edema or cyanosis, is warm, and is well perfused. Capillary refill is less than 2 seconds. Integumentary (Hair, Skin) No periwound erythema, warmth, or significant drainage. No periwound rashes appreciated or noted otherwise.. Refer to appropriate clinician wound documentation for this visit; left lateral malleolus ulcer extends to subcut with visible base covered with pink granulation; smaller and less deep than on previous review. Wound #2 Left, Lateral Ankle is an acute Full Thickness Surgical Wound and has received a status of Not Healed. Subsequent wound encounter measurements are 0.9cm length x 0.1cm width x 0.3cm depth, with an area of 0.09 sq cm and a volume of 0.027 cubic cm. No tunneling has been noted. No sinus tract has been noted. No undermining has been noted. There is a small amount of sero-sanguineous drainage noted which has no odor. The patient reports a wound pain of level 4/10. The wound margin is attached. Wound bed has Yes epithelialization, No eschar, Yes slough, Yes pink, firm granulation. The periwound skin color is normal. The periwound skin exhibited: Edema, Maceration. The periwound skin did not exhibit: Brawny Induration, Excoriation, Induration, Callus, Crepitus, Fluctuance, Friable, Rash, Dry/Scaly, Moist. The temperature of the periwound skin is WNL. Periwound skin does not exhibit signs or symptoms of infection. Local Pulse is Palpable. General Notes: Satellite ulcer present on lateral foot, measures 0.4x0.8x0.1cm. Neurological: Cranial nerves grossly intact with symmetric function normal by informal observation.. ASSESSMENT Active Problems ICD-10 (Encounter Diagnosis) L97.322 - Non-pressure chronic ulcer of left ankle with fat layer exposed (Encounter Diagnosis) T81.31XD - Disruption of external operation (surgical) wound, not elsewhere classified, subsequent encounter PROCEDURES Wound #2 Wound #2 (Surgical Wound) is located on the left, lateral ankle. A Disposable Wound Vac Application < 50 Sq Cm procedure was performed for the lower left extremity by Isidoro Sifuentes MD. A time out was conducted prior to the start of the procedure. The procedure was tolerated well. General Notes: ROMEL 4x8. PLAN Wound Orders: Wound #2 Left, Lateral Ankle Cleanser Cleanse Wound: - Normal saline and gauze. May Shower. - Cover with cast protector. Dressings Wound Vac: - ROMEL 4x8. Change Dressing: - Leave in place until next visit. Additional Orders: Follow-Up Appointments Return Appointment: - - One week. Other information: If you develop fever, chills, increased pain, drainage, redness or swelling please call our office. If after hours, respond to the ER. Should you experience any significant changes in your wound(s) or have any questions regarding your home care instructions please contact the wound center @ [phone]. If after hours, contact your primary care physician or go to the hospital emergency room. Scribing Attestation I attest, as the nurse, that I scribed these orders for the physician. Negative pressure wound therapy will be utilized to facilitate granulation and removal of exudate and infectious material with the goal of expediting wound healing. Electronic Signature(s) Signed By: Date: Isidoro Sifuentes MD 05/28/2018 06:43:39 Entered By: Isidoro Sifuentes on 05/27/2018 12:33:27
== END ==
PROVIDERS: PCP Family Medicine; Visit Provider Internal Medicine
DX: L97.322 Non-pressure chronic ulcer of left ankle with fat layer exposed (principal); T81.31XD Disruption of external operation (surgical) wound, not elsewhere classified, subsequent encounter
CPT/HCPCS: 97607

== ENCOUNTER → 2018-06-03 08:43 | Outpatient (CLI) | payer MEDICARE, SELFPAY ==
--- NOTE | 2018-06-03 | OV.WND_ITS ---
Progress Note Details Patient Name: Kristine Damon Patient Number: [id number] PatientPatientDate: 06/03/2018 Clinician: Cyn Gong Clinician Cosigner: Erlinda Malave Physician / Gasoline Locomotive Crane Operator: Isidoro Sifuentes SUBJECTIVE Chief Complaint This information was obtained from the patient Wound to left lateral ankle. Allergies penicillin, prednisone, cephalexin, codeine, acetaminophen, hydrocodone, ketorolac HPI This information was obtained from the patient 06/03/18. Seen by Dr. Sifuentes. The patient does not report increased pain or drainage associated with the chronic left lateral malleolus surgical wound since her last visit and she's tolerating NPWT with the ROMEL wound vac without difficulty. 05/27/18. Seen by Dr. Sifuentes. The patient does not report increased pain or drainage associated with the chronic left lateral malleolus surgical wound since her last visit and she's tolerating NPWT without difficulty. 05/23/18. Seen by Dr. Sifuentes. The patient does not report increased pain or drainage associated with the chronic left lateral malleolus surgical wound since her last visit and she's tolerating NPWT without difficulty. 05/20/18. Seen by Dr. Sifuentes. The patient does not report increased pain or drainage associated with the chronic left lateral malleolus surgical wound since her last visit and she's tolerating NPWT without difficulty. She continues on IV vancomycin during dialysis for the recent and reccurrent Enterococcus positive wound culture also however notes 2 doses were accidentally missed during dialysis last week. Her regimen completes today and her MRI of the ankle was inconclusive regarding the presence of osteomyelitis. 05/16/18. Seen by Dr. Sifuentes. The patient does not report increased pain or drainage associated with the chronic left lateral malleolus surgical wound since her last visit and she's tolerating NPWT without difficulty. She continues on IV vancomycin during dialysis for the recent Enterococcus positive wound culture also. Her MRI which was performed to re-evaluate the calcaneal stress fracture reports a cortical irregularity along the lateral malleolus that may represent osteomyelitis but must be considered in the context of her surgical debridement also. 05/13/18. Seen by Dr. Sifuentes. The patient reports continued pain in the left lateral malleolus posterior to the surgical wound and she has an MRI scheduled for this morning to evaluate the source of the pain. She also continues on IV vancomycin that's treating the recurrent Enterococcus positive culture and being infused during dialysis. She does not report fevers or feeling unwell otherwise and is tolerating negative pressure wound therapy without difficulty. 05/09/18. Seen by Shon Barlow PA-C. The patient continues on Vancomycin for her left malleolar wound infection which demonstrates stable drainage this week. 05/06/18. Seen by Shon Barlow PA-C. The patient reports stable drainage from her left malleolar wound and continues on Vancomycin to treat the Enterococcus infection of this wound. 05/02/18. Seen by Dr. Sifuentes. The patient reports improvement in the left foot pain and does not report increased drainage or other acute issues regarding the left lateral malleolus surgical wound that's being treated with negative pressure wound therapy. She's also continues on IV vancomycin during dialysis that's treating the recent Enterococcus positive wound culture. 04/29/18. Seen by Dr. Sifuentes. The patient reports improvement in the left foot pain over the past week and does not report increased drainage or other acute issues regarding the left lateral malleolus surgical wound that's being treated with negative pressure wound therapy. She's also now had 2 doses of IV vancomycin during dialysis this week that's treating the recent Enterococcus positive wound culture. 04/25/18. Seen by Dr. Sifuentes. The patient reports improvement in terms of pain associated with the chronic left lateral malleolus surgical wound since starting on IV vancomycin for the recently Enterococcus positive wound culture. She does not report adverse side effects and is receiving her antibiotics during dialysis. 04/22/18. Seen by Dr. Sifuentes. The patient reports some continued pain associated with the chronic left lateral malleolus surgical wound and she's been applying topical gentamicin to treat the recent Enterococcus positive wound culture. Her wound vac was discontinued last week also. Of note. she takes citalopram which complicates treating her wound infection with oral antibiotics and is also on dialysis for end stage renal disease and has received IV vancomycin without difficulty for her previous Enterococcus wound infections. 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 04/18/18. Seen by Dr. Sifuentes. The patient reports decreased pain associated with the chronic left lateral malleolus surgical wound over the past week since we held her wound vac. Her culture grew Enterococcus and she's not currently on antibiotics for this. Of note, her wound healing is complicated considerably by her end stage renal disease and being on dialysis and the wound is a result of deep bone debridement that was performed for chronic osteomyelitis of the malleolus. 04/15/18. Seen by Dr. Sifuentes. The patient continues to report persistent pain associated with the chronic left lateral malleolus surgical wound however she does not report increased drainage and has tolerated NPWT with the SNAP wound vac without difficulty. She' s now been off of antibiotics for the past month and underwent surgical bone debridement for chronic osteomyeylitis of the malleolus in late January. 04/11/18. Seen by Dr. Sifuentes. The patient does not report any new acute issues regarding her chronic left lateral malleolus surgical wound and she's tolerating NPWT with the SNAP wound vac without difficulty. 04/08/18. Seen by Dr. Sifuentes. The patient does not report any new acute issues regarding her chronic left lateral malleolus surgical wound and she's tolerating NPWT with the SNAP wound vac without difficulty. 04/04/18. Seen by Dr. Sifuentes. The patient continues to report pain associated with the chronic left lateral malleolus surgical wound despite the fact we discontinued NPWT at her last visit. Her wound culture grew only yeast and Diptheroids. 04/01/2018. Seen by Dr. Sifuentes. The patient continues to report pain associated with the chronic left lateral malleolus surgical wound. She does not report significant drainage from the site and has tolerated negative pressure wound therapy. She is not currently on antibiotics and has no other acute complaints today. 03/28/18. Seen by Dr. Sifuentes. The patient does not report significant pain nor drainage associated chronic left lateral malleolus surgical wound since her last visit and she's tolerating NPWT with the SNAP wound vac without difficulty. 03/25/18. Seen by Dr. Sifuentes. The patient continues to report pain throughout the midfoot and dorsum of the left foot that limits her ability to walk to only a couple of minutes at a time. She does not report any changes regarding the left lateral ankle surgical wound and is tolerating negative pressure wound therapy without difficulty. She's also not currently on oral antibiotics. 03/18/18. Seen by Dr. Sifuentes. The patient reports intermittent pain associated with the left lateral ankle however shoes are report increased drainage from the lateral malleolus surgical wound since her last visit. She is also tolerating negative pressure wound therapy without difficulty. 03/11/18. Seen by Dr Sifuentes.The patient reports some intermittent pain in the left lateral ankle when bearing weight but does not report significant drainage associated with the left lateral malleolus surgical wound since her last visit. She was changed from ciprofloxacin to doxycycline based on the recent culture growing a resistant coag negative staph organism. She does not report adverse side effects, fevers, or other acute issues today. 03/04/18. Seen by Dr. Sifuentes. The patient does not report significant pain nor drainage associated chronic left lateral malleolus surgical wound since her last visit. She continues on ciprofloxacin for chronic osteomyelitis also without reported adverse side effects. 02/25/18. Seen by Dr. Sifuentes. 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 She saw Dr. John last week and will start to use a bone stimulator to help heal the pathologic fracture. She does not report significant drainage associated with the left lateral malleolus surgical wound. 02/18/18. Seen by Dr. Sifuentes. The patient reports ongoing, but decreasing, pain associated with the left lateral malleolus surgical wound and she continues on ciprofloxacin and Flagy for chronic osteomyelitis without reporting adverse side effects. She'll see her surgeon, Dr. John, this . 02/14/18. Seen by Dr. Sifuentes. The patient reports decreased pain associated with the left lateral malleolus surgical wound and staff report only a moderate amount of drainage on the ROMEL wound vac dressing. She continues on cipro and Flagyl for chronic osteomyelitis and does not report adverse side effects or feeling unwell in general. 02/11/18. Seen by Dr. Sifuentes. The patient continues to report some persistent pain associated with the chronic left lateral malleolus surgical wound since her last visit. She does not report increased drainage however and is scheduled to see Dr. John, her orthopedic surgeon, next Saturday. She continues on ciprofloxacin and Flagyl as well and her surgery was a deep bone debridement to address the chronic osteomyelitis of the malleolus. 02/07/18. Seen by Dr. Sifuentes. 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 John. She reports some persistent discomfort at the wound site and is now on ciprofloxacin and Flagyl. Culture results of the execised bone are not yet available and the patient does not report any adverse side effects from the antibiotics, fevers, nor feeling unwell. 11/27/17. Seen by Dr. Sifuentes. The patient does not report pain associated with the chronic left lateral malleolus ulcer however she does describe diffuse pain throughout the lateral aspect of the foot and heel. She states this has been present for 6 weeks however has not raised the issue at our clinic until last week. She was seen by her primary care provider who subsequently ordered an MRI that revealed a nondisplaced fracture of the calcaneus. The MRI did mention also that the chronic osteomyelitis of the lateral malleolus appears to have improved from the previous imaging. 11/06/17. Seen by Dr. Sifuentes. The patient does not report significant pain or drainage associated with the chronic left lateral malleolar nonpressure ulcers since her last visit. She stop using a dressing due to pain and feels this has resolved in the interim. She's also asked that I look at a finger on her right hand that's been slow to heal since her dog scratched her a few weeks ago. She does not report pain at the site but states it's been draining a bit. 10/23/17. Seen by Dr. Sifuentes. The patient reports some persistent and modest pain associated with chronic left lateral malleolar nonpressure ulcer since her last visit. Does not report increased drainage and has been applying topical gentamicin to treat the recurrent cognitive staph wound infection. 10/02/17. The patient reports some intermittent pain associated with chronic left lateral malleolar nonpressure ulcer since her last visit however does not report increased drainage. 09/10/17. Seen by Shon Barlow PA-C. The patient reports no increase in drainage from her left lateral malleolar ulcer. She continues to abstain from smoking. 08/20/17. Seen by Dr. Sifuentes. The patient does not report significant pain or drainage associated with the chronic left lateral malleolar nonpressure ulcers since her last visit. She applying OTC topical antibiotic as prescribed to treat a recurrent wound infection noted at her last visit. 08/06/17. Seen by Dr. Sifuentes. The patient does not report significant pain or drainage associated with the chronic left lateral malleolar nonpressure ulcers since her last visit. 07/16/17. Seen by Dr. Sifuentes. The patient does not report pain or significant drainage associated with the chronic left lateral malleolar nonpressure ulcers since her last visit. 07/09/17. Seen by Dr. Sifuentes. The patient reports some intermittent pain associated with chronic left lateral malleolar nonpressure ulcer since her last visit however does not report increased drainage. 06/27/17. Seen by Dr. Sifuentes. The patient does not report pain or significant drainage associated with the chronic left lateral malleolar ulcer since her last visit. She feels her previously reported symptoms have improved since starting on levofloxacin for the polymicrobial wound culture following her last visit. 06/20/17. Seen by Dr. Sifuentes. The patient reports some burning associated with the left lateral chronic malleoli are not pressure ulcer. Her wound culture grew stenotrophomonas , enterococcus, and a coag-negative staph. She started on levofloxacin for this to be taken around her dialysis schedule. She does not report fevers or feeling unwell. 06/13/17. Seen by Shon Barlow PA-C. The patient reports that the steri-strips that were used to reduce wound tension were painful and she removed them. Her ulcer at that time grew E.coli which she has finished her antibiotic treatment for. 05/30/17. Seen by Dr. Sifuentes. The patient reports increased pain and drainage associated with the chronic left lateral malleolar ulcer over the past few days. She continues on dialysis and is scheduled to have cataract surgery later this week. She does not report fevers or feeling unwell and is not currently on antibiotics. 04/18/17. Seen by Dr. Sifuentes. The patient does not report pain or significant drainage the chronic left lateral malleolar ulcer over the past week. 03/28/17. Seen by Dr. Sifuentes. The patient does not report significant drainage or pain associated with the chronic left lateral malleolar non-pressure ulcer since her last visit. 03/07/17. Seen by Dr. Sifuentes. The patient does not report significant drainage or pain associated with the chronic left lateral malleolar non-pressure ulcer since her last visit. 02/14/17. Seen by Dr. Sifuentes. The patient feels the drainage from the chronic left lateral malleolar non-pressure ulcer noted at the last visit has decreased. Her wound culture grew Enterococcus and Enterobacter species however she did not tolerate her ciprofloxacin due to GI upset and stopped taking it after the few couple of doses. 02/05/17. Seen by Dr. Sifuentes. The patient does not report increased pain or drainage associated with chronic left lateral malleolar nonpressure ulcers since her last visit. 01/10/17. Seen by Dr. Sifuentes. The patient reports no increase in pain or significant drainage associated with the chronic left lateral malleolar nonpressure ulcer since her last visit. 12/20/16. Seen by Dr. Sifuentes. The patient does not report drainage associated with the chronic left lateral malleolus ulcer since her last visit. 11/29/16. Seen by Dr. Sifuentes. The patient does not report significant drainage associated with the chronic left lateral malleolus ulcer since her last visit. 11/08/16. Seen by Dr. Sifuentes. The patient does not report pain or significant drainage associated with the chronic left lateral malleolus ulcer since her last visit. 10/18/16 Seen by Shon Barlow PA-C. The patient does not report any change in pain or drainage from her chronic left lateral malleolar ulcer since her last evaluation. 10/04/16. Seen by Dr. Sifuentes. The patient does not report pain or significant drainage associated with the chronic left lateral malleolus ulcer. She continues to apply gentamicin cream at each dressing change due to chronic and recurring infections at the ulcer site. 09/27/16. Seen by Dr. Sifuentes.The patient does not report significant drainage or pain associated with chronic left lateral malleolus on pressure ulcer since her last visit. She continues to apply topical gentamicin ointment for the chronic wound infection. 09/13/16. Seen by Dr. Sifuentes. The patient reports scant drainage and no pain associated with the chronic left lateral malleolar non-pressure ulcer and she's applying topical gentamicin daily to treat the recent polymicrobial wound infection as recommended. 09/04/16 Seen by Shon Barlow PA-C. The patient reports minimal drainage and she is attempting to offload the ulcer area when she sleeps using a [place]-saver ankle protector. 08/30/16. Seen by Dr. Sifuentes. The patient reports increased pain and drainage associated with the chronic left lateral malleolr non-pressure ulcer over the past week but she does not report fevers or feeling unwell. Her wound culture from the last visit grew Enterobacter, E. coli, and a coag negative Staph and she started taking Bactrim and applying topical gentamicin yesterday. She's on a 1/2 dose of Bactrim due to her end stage renal disease. 08/23/16. Seen by Dr. Sifuentes. The patient reports some increased drainage on her dressing covering the chronic left lateral malleolar non-pressure ulcer. She does no report pain however nor fevers or feeling unwell. 08/09/16. Seen by Dr. Sifuentes. The patient does not report drainage or pain associated with the chronic left lateral malleolar ulcer. 07/26/16. Seen by Dr. Sifuentes. The patient does not report drainage or pain associated with the chronic left lateral malleolar ulcer since her last visit. 07/11/16. Seen by Dr. Sifuentes. The patient does not report drainage or pain associated with the chronic left lateral malleolar ulcer since her visit last week. 06/21/16 Seen by Shon Barlow PA-C. The patient reports no change in drainage from her left lateral malleolus ulcer. 06/14/16. Seen by Dr. Sifuentes. The patient reportedly minimal drainage associated with the chronic left lateral malleolus ulcer since her last visit. Her arterial Doppler of the left leg was remarkable. 06/07/16. Seen by Dr. Sifuentes. The patient does not report pain or drainage associated with the chronic left lateral malleolar ulcer over the past week. 05/31/16. Seen by Dr. Sifuentes. The patient does not report pain or drainage associated with chronic left lateral malleolus nonpressure ulcer over the past week. Of note, her wound culture from the last visit grew a resistant coag negative Staph. She's not currently taking antibiotics. 05/24/[address] Sifuentes. The patient does not report increased pain or drainage associated with the chronic left lateral malleolar non-pressure ulcer over the past week. 05/17/[address] Sifuentes. The patient does not report pain associated with the chronic left lateral malleolar non-pressure ulcer over the past week and there's only a scant amount of drainage on her dressing today. 05/10/[address] Sifuentes. The patient does not report pain or drainage associated with the chronic left lateral malleolar ulcer or associated underlying malleolar chronic osteomyelitis over the past week. Of note, she had another Epifix skin substitute placed last week. 05/03/[address] Sifuentes. The patient does not report pain or drainage associated with the left lateral malleolar non-pressure ulcer over the past week and she's tolerating HBOT, which is treating associated underlying chronic osteomyelitis, without reporting any issues. 04/26/16 Seen by Shon Barlow PA-C. The patient reports no noted change in her chronic left lateral malleolar ulcer since her last evaluation. 04/19/[address] Sifuentes. The patient does not report pain or drainage associated with the chronic left lateral malleolar non-pressure ulcer nor underlying chronic osteomyelitis. She continues with HBOT but has completed an 8 week course of IV vancomycin. 04/12/[address] Sifuentes. The patient does not report drainage or pain associated with her chronic left lateral malleolar ulcer and underlying chronic osteomyelitis. She' s received 3 placements of Epifix recently and continues with HBOT in addition to an extended course of IV vancomycin. Her wound culture from 04/05/16 showed no organisms and had no growth. 04/05/[address] Sifuentes. The patient does not report pain or drainage from her chronic left lateral malleolar non-pressure ulcer and she continues on IV vancomycin for chronic osteomyelitis of the underlying malleolus. 03/29/[address] Sifuentes. The patient does not report pain or drainage associated with her chronic left lateral malleolar non-pressure ulcer and she continues on IV vancomycin and hyperbaric therapy for underlying chronic osteomyelitis of the malleolus. 03/22/[address] Sifuentes. The patient does not report pain or drainage associated with the chronic left lateral malleolar non-pressure ulcer. 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 She also states she's no longer smoking. 03/06/16 Seen by Shon Barlow PA-C. The patient is changing her dressing daily, as instructed but now reports decreased drainage from her ulcer. 03/01/[address] Sifuentes. The patient does not report pain or significant drainage associated with her chronic left lateral malleolar ulcer and she continues on IV vancomycin and hyperbaric oxygen therapy for underlying chronic osteomyelitis of the lateral malleolus. 02/14/16 Seen by Shon Barlow PA-C. The patient feels her left malleolar ulcer with underlying chronic osteomyelitis may be larger and has been draining more since her last evaluation. She continues on doxycycline and her ulcer culture grew a staph Spp. and E Faecalis both of which were highly resistant. She reports that she is only smoking a few cigarettes per day. Her dialysis continues at 2 times weekly. Her COPD is stable on current medications with no recent exacerbations. 02/08/[address] Sifuentes. The patient does not report pain associated with the chronic left lateral malleolar non-pressure ulcer however the staff report brown drainage on her dressing today. She continues on doxycycline for a recent polymicrobial resistant Staph culture and her recent bone scan on 01/26/16 show's persistent left lateral malleolar osteomyelitis while reporting interval improvement from her previous scan on 09/29/15. She does not report fevers or feeling unwell and she also reports that she's significantly reduced her smoking over the past week. 01/26/[address] Sifuentes. The patient does not report pain associated with the chronic left lateral malleolar non-pressure ulcer nor does she report any problems with the wound vac. She continues on doxycycline without reporting adverse side effects and her bone scan shows persistence of osteomyelitis beneath the ulcer with interval improvement from that of 09/29/16. 01/19/[address] Sifuentes. The patient does not report pain associated with the chronic left lateral malleolar non-pressure ulcer nor any problems with the wound vac. She continues on doxycycline also for a resistant coag neg Staph culture and does not report adverse side effects. 01/12/[address] Sifuentes. The patient does not report pain or significant drainage associated with the chronic left lateral malleolar ulcer. She also is now on doxycycline for a resistant coag neg Staph culture from 12/28/15 and does not report adverse effects. 01/04/[address] Sifuentes. The patient reports some increased pain just proximal to the chronic left lateral malleolar non-pressure ulcer. She's currently using only topical gentamicin to treat an intermediately resistant coag negative Staph culture from the ulcer. 12/28/[address] Sifuentes. The patient does not report drainage and reports only minimal pain associated with the chronic left lateral malleolar ulcer. Her wound culture grew only resistant Staph epi. 12/21/[address] Sifuentes. The patient does not report pain or drainage associated with the chronic left lateral malleolar ulcer and she's continues off of antibiotics. 12/07/2015 Seen by Shon Barlow PA-C. The patient's moxifloxacin has now finished and she does not report any change in left ankle pain or drainage. 11/30/2015 Seen by Shon Barlow PA-C. The patient's moxifloxacin prescription continues for 1 more week. She is currently not undergoing adjunctive hyperbaric oxygen treatments. She reports no change in ulcer pain. 11/25/[address] Sifuentes. The patient does not report any new issues regarding her chronic left lateral malleolar non-pressure ulcer however the staff report some moderate maceration. 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 11/15/15 Seen by Shon Barlow PA-C. The patient will complete her last Vancomycin infusion tomorrow and will then discontinue this antibiotic and discontinue 3x weekly dialysis and resume twice weekly dialysis. Her ulcer, overlying chronic osteomyelitis has been draining minimally and has not been reportedly painful since her last evaluation. She is now weaned off of citalopram (which had interactions with Moxifloxacin, which we originally wanted to prescribe) and she reports no depression symptoms. 11/08/15 Seen by Shon Barlow PA-C. The patient does not report increased pain or drainage from her ulcer with underlying osteomyelitis. She continues on Vancomycin. 11/03/[address] Sifuentes. The patient does not report pain and only scant drainage from the chronic left lateral malleolar ulcer and underlying chronic osteomyelitis. She's on day 24 of IV vancomycin for the Enterococcus positive wound culture and HBOT for chronic osteomyelitis. 10/27/[address] Sifuentes. The patient reports minimal discomfort and scant drainage from the left lateral malleolar ulcer and underlying chronic osteomyelitis. She continues on IV vancomycin for this problem as well as HBOT without reporting problems. 10/19/15 Seen by Shon Barlow PA-C. The patient reports a stable appearance of her ulcer. She is going to begin 3x weekly dialysis due to the administration of Vancomycin. When she completes her Vancomycin course she will resume twice weekly dialysis. 10/12/[address] Sifuentes. The patient states she's had 5 episodes of diarrhea this morning and complains of some mild left sided abdominal pain. She's been started on IV vancomycin for the left lateral malleolar ulcer cultured for Enterococcus and is under the care of her financial sales advisor, Dr. Lorenzana, regarding dosing around her dialysis. She does not report drainage nor significant discomfort associated with ulcer nor underlying chronic osteomyelitis of the malleolus and continues with HBOT as adjuvant therapy without reporting problems. 10/06/[address] Sfiuentes. The patient continues to report some discomfort regarding her left lateral malleolar ulcer and underlying chronic osteomyelitis. She's seen Dr. Silva, her PCP, whose started a taper of her Celexa over the next 6 weeks due to a potentially serious interaction with fluorquinolone antibiotics which could eventually be useful in treating the Enterococcus faecalis positive wound culture from 09/28/15. She does not report fever or other acute issues currently and has been off of antibiotics for the past week due to the limited options based on sensitivities. She's continued HBOT over this period while we' ve attempted to find an appropriate antibiotic solution. Of note, her bone scan from 09/29/15 confirms persistence of chronic osteomyelitis also. 09/14/15 Seen by Shon Barlow PA-C. The patient reports no difficulty with her doxycycline or HBOT treatments. Her ankle ulcer continues to drain and she has not observed much change. 09/07/[address] Sifuentes. The patient does not report significant pain or drainage associated with her left lateral malleolar ulcer and she continues on doxycycline for associated chronic osteomyelitis without reporting adverse side effects. She's also tolerating HBOT without reporting any problems. 08/24/[address] Sifuentes. The patient reports increased pain and redness in the periwound area of the left lateral malleolar ulcer that overlies the site of chronic osteomyelitis. She does not report fever, chills, sweats, or increased drainage. Her wound culture at the last visit was unremarkable despite being off of antibiotics. She's been approved for HBOT and currently does not report acute URI symptoms but states she has some chronic sinus congestion. Of note, her CXR was consistent with COPD. 08/17/[address] Sifuentes. The patient states her left lateral malleous is more tender than last week with some radiation of pain to the mid foot. She does not report increased 08/04/[address] Sifuentes. The patient attend the ER following our last visit and was sent to [facility] due to acute on chronic renal failure. She'd apparently become dehydrated due to nausea and vomiting and was dx with a small bowel obstruction. Of note, I'd contacted her to discontinue Bactrim, which she'd been on for about a month for left lateral malleolar osteomyelitis, due to her Cr increasing. This has since returned to it's baseline and she's currently not on antibiotics. She does not report increased pain, swelling or drainage associated with the overlying ulcer. She's also to complete the 2nd phase of her bone scan checking for persistence of osteomyelitis later today. 07/28/[address] Sifuentes. The patient does not report drainage or pain associated with the left lateral malleolar ulcer. She continues on an extended course of Bactrim for possible osteomyelitis which is concerning based on her history of chronic kidney disease requiring dialysis. She notes she still produces adequate urine but has not had her renal function checked since 07/05/15 when her Cr was 2.7. 07/20/[address] Sifuentes. The patient does not report any new issues such as pain or increased drainage from the left lateral malleolar ulcer. She continues on Bactrim for possible chronic osteomyelitis of the lateral malleolus. 07/13/[address] Sifuentes. The patient's new to our clinic and has been referred by Dr. Silva for a non-healing surgical wound following excision of a skin cancer ( type unconfirmed) at the left lateral malleolus. This was reportedly performed about 2 months ago and she's been on an extended course of Bactrim for the past month with some resolution in drainage and surrounding erythema. She has an MRI and bone scan of the site from the end of April that both raise suspicion for osteomyelities however. Otherwise her medical history is complicated by chronic renal failure requiring dialysis and a long history of smoking. She does not have a history of diabetes nor does she report rest pain, claudication, fever, sweats, or pain at the ulcer site. Past Medical History This information was obtained from the patient Patient has a medical history of: Depression Carpal tunnel Chronic renal Stage V (Cr 2.7 on 07/05/15; dialysis M, F) Unilateral nephrectomy Allergic rhinitis Hypertension Insomnia Lumbago Osteoporosis Peptic Ulcer Small bowel obstruction (recurrent) Chronic osteomyelitis (left lateral malleolus; dx on MRI and bone scan April 2015 ; reconfirmed on repeat bone scan 07/28/15; persistent but improved on 01/26/16 bone scan) COPD Chronic ulcer (left lateral malleolus) Complaints and Symptoms This information was obtained from the patient Patient complains of: General Notes: I have reviewed and concur with the Review of Systems and Past Family Social History documents completed by the clinician, I have reviewed and concur with the Wound Assessment document completed by the clinician Ear/Nose/Mouth/Throat: Hearing Loss / Aid Integumentary (Hair/Skin/Nails): Open Sore Prior Wound History: Drainage, Erythema, Pain Patient denies complaints or symptoms related to: Cardiovascular (Central/Peripheral): Intermittent Claudication, Lower extremity (leg) resting pain, Lower extremity (leg) swelling Constitutional Symptoms (General Health): Chills, Fever Gastrointestinal (GI): Nausea / Vomiting, Stomach/abdominal pain Hematologic/Lymphatic: Bleeding / Clotting Disorders, Bleeding Tendency Musculoskeletal: Deformities, Joint Swelling Neurological: Abnormal Gait, Loss of Protective Sensation Prior Wound History: Bleeding, Malodor Psychiatric: Memory Loss Respiratory: Oxygen Use, Shortness of Breath OBJECTIVE Constitutional Vital signs reviewed and noted. Well developed. Alert. Clean appearing.. Height/ Length: 60 in (152.4 cm), Weight: 96.9 lbs (44.05 kgs), BMI: 18.9, Temperature: 98.2 ?F ( 36.78 ?C), Pulse: 62 bpm, Respiratory Rate: 16 breaths/min, Blood Pressure: 121/53 mmHg, Pulse Oximetry: 97 %. Ears, Nose, Mouth, and Throat: Mild hearing deficit. Integumentary (Hair, Skin) No periwound erythema, warmth, or significant drainage. No periwound rashes appreciated or noted otherwise.. Refer to appropriate clinician wound documentation for this visit; left lateral malleolus ulcer extends to subcut with visible base covered with pink granulation. Maceration present in the periwound area. Wound #2 Left, Lateral Ankle is an acute Full Thickness Surgical Wound and has received a status of Not Healed. Subsequent wound encounter measurements are 1cm length x 0.1cm width x 0.3cm depth, with an area of 0.1 sq cm and a volume of 0.03 cubic cm. No tunneling has been noted. No sinus tract has been noted. No undermining has been noted. There is a small amount of sero-sanguineous drainage noted which has no odor. The patient reports a wound pain of level 4/10. The wound margin is attached. Wound bed has Yes epithelialization, No eschar, Yes slough, Yes pink, firm granulation. The periwound skin color is normal. The periwound skin exhibited: Edema, Maceration. The periwound skin did not exhibit: Brawny Induration, Excoriation, Induration, Callus, Crepitus, Fluctuance, Friable, Rash, Dry/Scaly, Moist. The temperature of the periwound skin is WNL. Periwound skin does not exhibit signs or symptoms of infection. Local Pulse is Palpable. Neurological: Cranial nerves grossly intact with symmetric function normal by informal observation.. ASSESSMENT Active Problems ICD-10 (Encounter Diagnosis) L97.322 - Non-pressure chronic ulcer of left ankle with fat layer exposed (Encounter Diagnosis) T81.31XD - Disruption of external operation (surgical) wound, not elsewhere classified, subsequent encounter PROCEDURES Wound #2 Wound #2 (Surgical Wound) is located on the left, lateral ankle. A skin/ subcutaneous tissue level surgical debridement with a total area debrided of 0.2 sq cm was performed by Isidoro Sifuentes MD. Subcutaneous was removed along with devitalized tissue: slough. The following instrument(s) were used: curette and forceps. Pain control was achieved using 4 % Lido. A time out was conducted prior to the start of the procedure. A minimal amount of bleeding was controlled with pressure. The procedure was tolerated well with a pain level of 2 throughout and a pain level of 2 following the procedure. Post Debridement Measurements: 1cm length x 0.2cm width x 0.3cm depth; with an area of 0.2 sq cm and a volume of 0.06 cubic cm; Wound #2 (Surgical Wound) is located on the left, lateral ankle. A Disposable Wound Vac Application < 50 Sq Cm procedure was performed for the lower left extremity by Isidoro Sifuentes MD. A time out was conducted prior to the start of the procedure. The procedure was tolerated well. General Notes: SNAP 125 PLAN Wound Orders: Wound #2 Left, Lateral Ankle Cleanser Cleanse Wound: - Normal saline and gauze. May Shower. - Cover with cast protector. Dressings Wound Vac: - SNAP 125mmHg. Change Dressing: - Leave in place until next visit. Additional Orders: Follow-Up Appointments Return Appointment: - - Tuesdays and Fridays for SNAP. Other information: If you develop fever, chills, increased pain, drainage, redness or swelling please call our office. If after hours, respond to the ER. Should you experience any significant changes in your wound(s) or have any questions regarding your home care instructions please contact the wound center @ [phone]. If after hours, contact your primary care physician or go to the hospital emergency room. Scribing Attestation I attest, as the nurse, that I scribed these orders for the physician. I've reviewed the clinician's documentation and agree with the evaluation and plan as written. In addition, the patient's ulcer demonstrates evidence of non-viable devitalized tissue which will continue to benefit from sharp debridement to help promote granulation and expedite healing. Negative pressure wound therapy will be utilized to facilitate granulation and removal of exudate and infectious material with the goal of expediting wound healing. Also, my sense is that the ROMEL wound vac may not be applying adequate negative pressure to the wound base so I've changed to a SNAP wound vac to better facilitate NPWT. Electronic Signature(s) Signed By: Date: Isidoro Sifuentes MD 06/04/2018 07:05:31 Entered By: Isidoro Sifuentes on 06/04/2018 07:04:11
== END ==
PROVIDERS: PCP Family Medicine; Visit Provider Internal Medicine
DX: T81.31XA Disruption of external operation (surgical) wound, not elsewhere classified, initial encounter (principal); L97.322 Non-pressure chronic ulcer of left ankle with fat layer exposed
CPT/HCPCS: 11042; 97607

== ENCOUNTER → 2018-06-06 13:54 | Outpatient (CLI) | payer MEDICARE, SELFPAY | PROVIDERS: PCP Family Medicine; Visit Provider Internal Medicine | DX: T81.31XA Disruption of external operation (surgical) wound, not elsewhere classified, initial encounter (principal); L97.322 Non-pressure chronic ulcer of left ankle with fat layer exposed; E83.52 Hypercalcemia | CPT/HCPCS: 11042; 97607 ==

== ENCOUNTER → 2018-06-10 09:04 | Outpatient (CLI) | payer MEDICARE, SELFPAY | PROVIDERS: PCP Family Medicine; Visit Provider Internal Medicine | DX: T81.31XA Disruption of external operation (surgical) wound, not elsewhere classified, initial encounter (principal); L97.322 Non-pressure chronic ulcer of left ankle with fat layer exposed | CPT/HCPCS: 11042; 97607 ==

== ENCOUNTER → 2018-06-11 08:05 | Outpatient (CLI) | payer MEDICARE, SELFPAY ==
--- NOTE | 2018-06-11 08:42 | DI.RAD.S_ITS ---
PROCEDURE: XR BONE SURVEY INDICATIONS: hypercalcemia TECHNIQUE: Multiple views obtained of various bony structures as described below. COMPARISON: None. FINDINGS: Skull (lateral): No suspicious bony lesions. No fractures. Thoracic spine (AP, lateral): Scoliosis. Multilevel disc degeneration and spondylosis. No suspicious bony lesions. No acute vertebral body compression fractures. Lumbar spine (AP, lateral): Scoliosis. Disc degeneration. Facet arthropathy. No suspicious bony lesions. No acute vertebral body compression fractures. Pelvis (AP): There is a 1 cm oval radiolucency in the inferior ramus of the left ischium. No fractures. Overlying soft tissues appear unremarkable. Right and left humeri (AP): No suspicious bony lesions. No fractures. Overlying soft tissues appear unremarkable noting postsurgical changes over the left elbow. Right and left femurs (AP): No suspicious bony lesions. No fractures. Overlying soft tissues appear unremarkable. IMPRESSION: 1. Small lytic lesion in the inferior ramus of the left ischium is indeterminate but could represent metastatic bone disease. No other suspicious bone lesions. 2. 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 Dictated by: Rashel Morocho M.D. on 06/11/2018 at 10:20 Approved by: Rashel Morocho M.D. on 06/11/2018 at 10:26
[2018-06-11 08:56] LABS: Add Manual Diff / Slide Review NO; Basophils Percent Auto 0.7 % (0-2); Eosinophils Percent Auto 1.5 % (2-4); Hemoglobin 13.4 g/dL (12.0-16.0); Lymphocytes Percent Auto 21.7 % (25-40); Mean Corpuscular HGB Conc 33.5 % (30-36); Mean Corpuscular Hemoglobin 33.5 PG (26-34); Monocytes Percent Auto 6.6 % (3-14); Neutrophils Absolute Auto 5900 /uL (3000-5900); Neutrophils Percent Auto 69.5 % (50-75); Platelet Count 278 X10^3/uL (150-400); Red Cell Distribution Width 12.6 % (11.6-14.8); White Blood Cell Count 8.5 X10^3/uL (4.5-11.0)
[2018-06-11 09:12] LABS: Alanine Aminotransferase 42 IU/L (9-52); Albumin 4.4 g/dL (3.5-5.0); Albumin Globulin Ratio 1.7 (1.0-2.8); Alkaline Phosphatase 200 U/L (38-126); Aspartate Aminotransferase 46 IU/L (14-36); BUN Creatinine Ratio 13.8 (6-22); Bilirubin Total 0.3 mg/dL (0.2-1.3); Blood Urea Nitrogen 36 mg/dL (7-17); Calcium 11.6 mg/dL (8.4-10.2); Chloride 93 mmol/L (98-107); Estimated Glomerular Filt Rate 17.9 mL/min (>60); Globulin 2.6 g/dL (1.7-4.1); Glucose 85 mg/dL (80-110); HEMOLYSIS < 15 (0-50); Potassium 4.4 mmol/L (3.4-5.1); Sodium 139 mmol/L (137-145)
[2018-06-11 09:19] LABS: Carbon Dioxide 38 mmol/L (22-32)
[2018-06-11 11:08] LABS: Collection Time Urine 24 Hours; Creat Clearance, Corrected 10.7 mL/MIN; Creatinine 24 Hour Urine 614 mg/day (800-1800); Creatinine Clearance Urine 16.4 mL/MIN; Creatinine Urine Random 58.5 mg/dL; Patient Height Urine 151 inches; Patient Weight Urine 95 lbs; Total Volume Urine 1050 mL
[2018-06-11 11:24] LABS: Calcium 24 Hour Urine 93 mg/day (100-300); Calcium Urine Random 8.9; Collection Time Urine 24 Hours; Total Volume Urine 1050 mL
[2018-06-12 15:14] LABS: Free Kappa Light Chain 64.2 mg/L (3.3-19.4); Free Kappa/ Lambda Ratio 1.81 (0.26-1.65); Free Lambda 35.4 mg/L (5.7-26.3)
[2018-06-12 16:03] LABS: Immunoglobulin A 159 mg/dL (81-463); Immunoglobulin G, Quantitative 717 mg/dL (694-1618); Immunoglobulin M, Quantitative 118 mg/dL (48-271)
[2018-06-14 19:20] LABS: Albumin 100 %; Protein, Total, 24 hr urine 116 mg/24 h (<150); Protein/ Creatinine Ratio 169 mg/g creat (< OR = 84); Total Volume 1050 mL
[2018-06-17 14:51] LABS: Measured Lambda Chains < 1.00 mg/dL (< 2.00); Total Kappa Chains 14.7 mg/24hr; Total Volume: 1050 mL
[2018-06-21 15:51] LABS: Abnormal Protein Band 1 0.2 g/dL (NONE DETECTED); Albumin 4.4 g/dL (3.8-4.8); Alpha 1 Globulin 0.3 g/dL (0.2-0.3); Alpha 2 Globulin 0.8 g/dL (0.5-0.9); Beta 1 Globulin 0.4 g/dL (0.4-0.6); Gamma Globulin 0.7 g/dL (0.8-1.7); Protein, Total 6.9 g/dL (6.1-8.1)
== END ==
PROVIDERS: PCP Family Medicine; Visit Provider Internal Medicine Hematology & Oncology
DX: D47.2 Monoclonal gammopathy (principal); E83.52 Hypercalcemia; M89.9 Disorder of bone, unspecified; M41.9 Scoliosis, unspecified; M51.36 Other intervertebral disc degeneration, lumbar region; M47.896 Other spondylosis, lumbar region
CPT/HCPCS: 36415; 77075; 80053; 82340; 82570; 82575; 82784; 83883; 84155; 84156; 84165; 84166; 85025; 86334; 86335

== ENCOUNTER → 2018-06-13 11:04 | Outpatient (CLI) | payer MEDICARE, SELFPAY ==
--- NOTE | 2018-06-13 | OV.WND_ITS ---
Progress Note Details Patient Name: Kristine Damon Patient Number: [id number] PatientPatientDate: 06/13/2018 Clinician: Morelia Ibarra Physician / Video Camera Operator: Isidoro Sifuentes SUBJECTIVE Chief Complaint This information was obtained from the patient Wound to left lateral ankle. Allergies penicillin, prednisone, cephalexin, codeine, acetaminophen, hydrocodone, ketorolac HPI This information was obtained from the patient 06/13/18. Seen by Dr. Sifuentes. The patient does not report increased pain or drainage associated with the chronic left lateral malleolus surgical wound since her last visit and we're considering placing a Grafix biologic skin substitute today to help promote granulation of this very refractory surgical wound. 06/10/18. Seen by Dr. Sifuentes. The patient does not report increased pain or drainage associated with the chronic left lateral malleolus surgical wound since her last visit. 06/06/18. Seen by Dr. Sifuentes. The patient does not report increased pain or drainage associated with the chronic left lateral malleolus surgical wound since her last visit. 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 She's also no longer on antibiotics and her wound has been showing modest progress over the past 3 weeks since changing to a SNAP wound vac from a ORMEL. 06/03/18. Seen by Dr. Sifuentes. The patient does not report increased pain or drainage associated with the chronic left lateral malleolus surgical wound since her last visit and she's tolerating NPWT with the ROMEL wound vac without difficulty. 05/27/18. Seen by Dr. Sifuentes. The patient does not report increased pain or drainage associated with the chronic left lateral malleolus surgical wound since her last visit and she's tolerating NPWT without difficulty. 05/23/18. Seen by Dr. Sifuentes. The patient does not report increased pain or drainage associated with the chronic left lateral malleolus surgical wound since her last visit and she's tolerating NPWT without difficulty. 05/20/18. Seen by Dr. Sifuentes. The patient does not report increased pain or drainage associated with the chronic left lateral malleolus surgical wound since her last visit and she's tolerating NPWT without difficulty. She continues on IV vancomycin during dialysis for the recent and reccurrent Enterococcus positive wound culture also however notes 2 doses were accidentally missed during dialysis last week. Her regimen completes today and her MRI of the ankle was inconclusive regarding the presence of osteomyelitis. 05/16/18. Seen by Dr. Sifuentes. The patient does not report increased pain or drainage associated with the chronic left lateral malleolus surgical wound since her last visit and she's tolerating NPWT without difficulty. She continues on IV vancomycin during dialysis for the recent Enterococcus positive wound culture also. Her MRI which was performed to re-evaluate the calcaneal stress fracture reports a cortical irregularity along the lateral malleolus that may represent osteomyelitis but must be considered in the context of her surgical debridement also. 05/13/18. Seen by Dr. Sifuentes. The patient reports continued pain in the left lateral malleolus posterior to the surgical wound and she has an MRI scheduled for this morning to evaluate the source of the pain. She also continues on IV vancomycin that's treating the recurrent Enterococcus positive culture and being infused during dialysis. She does not report fevers or feeling unwell otherwise and is tolerating negative pressure wound therapy without difficulty. 05/09/18. Seen by Shon Barlow PA-C. The patient continues on Vancomycin for her left malleolar wound infection which demonstrates stable drainage this week. 05/06/18. Seen by Shon Barlow PA-C. The patient reports stable drainage from her left malleolar wound and continues on Vancomycin to treat the Enterococcus infection of this wound. 05/02/18. Seen by Dr. Sifuentes. The patient reports improvement in the left foot pain and does not report increased drainage or other acute issues regarding the left lateral malleolus surgical wound that's being treated with negative pressure wound therapy. She's also continues on IV vancomycin during dialysis that's treating the recent Enterococcus positive wound culture. 04/29/18. Seen by Dr. Sifuentes. The patient reports improvement in the left foot pain over the past week and does not report increased drainage or other acute issues regarding the left lateral malleolus surgical wound that's being treated with negative pressure wound therapy. She's also now had 2 doses of IV vancomycin during dialysis this week that's treating the recent Enterococcus positive wound culture. 04/25/18. Seen by Dr. Sifuentes. The patient reports improvement in terms of pain associated with the chronic left lateral malleolus surgical wound since starting on IV vancomycin for the recently Enterococcus positive wound culture. She does not report adverse side effects and is receiving her antibiotics during dialysis. 04/22/18. Seen by Dr. Sifuentes. The patient reports some continued pain associated with the chronic left lateral malleolus surgical wound and she's been applying topical gentamicin to treat the recent Enterococcus positive wound culture. Her wound vac was discontinued last week also. Of note. she takes citalopram which complicates treating her wound infection with oral antibiotics and is also on dialysis for end stage renal disease and has received IV vancomycin without difficulty for her previous Enterococcus wound infections. 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 04/18/18. Seen by Dr. Sifuentes. The patient reports decreased pain associated with the chronic left lateral malleolus surgical wound over the past week since we held her wound vac. Her culture grew Enterococcus and she's not currently on antibiotics for this. Of note, her wound healing is complicated considerably by her end stage renal disease and being on dialysis and the wound is a result of deep bone debridement that was performed for chronic osteomyelitis of the malleolus. 04/15/18. Seen by Dr. Sifuentes. The patient continues to report persistent pain associated with the chronic left lateral malleolus surgical wound however she does not report increased drainage and has tolerated NPWT with the SNAP wound vac without difficulty. She' s now been off of antibiotics for the past month and underwent surgical bone debridement for chronic osteomyeylitis of the malleolus in late January. 04/11/18. Seen by Dr. Sifuentes. The patient does not report any new acute issues regarding her chronic left lateral malleolus surgical wound and she's tolerating NPWT with the SNAP wound vac without difficulty. 04/08/18. Seen by Dr. Sifuentes. The patient does not report any new acute issues regarding her chronic left lateral malleolus surgical wound and she's tolerating NPWT with the SNAP wound vac without difficulty. 04/04/18. Seen by Dr. Sifuentes. The patient continues to report pain associated with the chronic left lateral malleolus surgical wound despite the fact we discontinued NPWT at her last visit. Her wound culture grew only yeast and Diptheroids. 04/01/2018. Seen by Dr. Sifuentes. The patient continues to report pain associated with the chronic left lateral malleolus surgical wound. She does not report significant drainage from the site and has tolerated negative pressure wound therapy. She is not currently on antibiotics and has no other acute complaints today. 03/28/18. Seen by Dr. Sifuentes. The patient does not report significant pain nor drainage associated chronic left lateral malleolus surgical wound since her last visit and she's tolerating NPWT with the SNAP wound vac without difficulty. 03/25/18. Seen by Dr. Sifuentes. The patient continues to report pain throughout the midfoot and dorsum of the left foot that limits her ability to walk to only a couple of minutes at a time. She does not report any changes regarding the left lateral ankle surgical wound and is tolerating negative pressure wound therapy without difficulty. She's also not currently on oral antibiotics. 03/18/18. Seen by Dr. Sifuentes. The patient reports intermittent pain associated with the left lateral ankle however shoes are report increased drainage from the lateral malleolus surgical wound since her last visit. She is also tolerating negative pressure wound therapy without difficulty. 03/11/18. Seen by Dr Sifuentes.The patient reports some intermittent pain in the left lateral ankle when bearing weight but does not report significant drainage associated with the left lateral malleolus surgical wound since her last visit. She was changed from ciprofloxacin to doxycycline based on the recent culture growing a resistant coag negative staph organism. She does not report adverse side effects, fevers, or other acute issues today. 03/04/18. Seen by Dr. Sifuentes. The patient does not report significant pain nor drainage associated chronic left lateral malleolus surgical wound since her last visit. She continues on ciprofloxacin for chronic osteomyelitis also without reported adverse side effects. 02/25/18. Seen by Dr. Sifuentes. 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 She saw Dr. John last week and will start to use a bone stimulator to help heal the pathologic fracture. She does not report significant drainage associated with the left lateral malleolus surgical wound. 02/18/18. Seen by Dr. Sifuentes. The patient reports ongoing, but decreasing, pain associated with the left lateral malleolus surgical wound and she continues on ciprofloxacin and Flagy for chronic osteomyelitis without reporting adverse side effects. She'll see her surgeon, Dr. John, this . 02/14/18. Seen by Dr. Sifuentes. The patient reports decreased pain associated with the left lateral malleolus surgical wound and staff report only a moderate amount of drainage on the ROMEL wound vac dressing. She continues on cipro and Flagyl for chronic osteomyelitis and does not report adverse side effects or feeling unwell in general. 02/11/18. Seen by Dr. Sifuentes. The patient continues to report some persistent pain associated with the chronic left lateral malleolus surgical wound since her last visit. She does not report increased drainage however and is scheduled to see Dr. John, her orthopedic surgeon, next Saturday. She continues on ciprofloxacin and Flagyl as well and her surgery was a deep bone debridement to address the chronic osteomyelitis of the malleolus. 02/07/18. Seen by Dr. Sifuentes. 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 John. She reports some persistent discomfort at the wound site and is now on ciprofloxacin and Flagyl. Culture results of the execised bone are not yet available and the patient does not report any adverse side effects from the antibiotics, fevers, nor feeling unwell. 11/27/17. Seen by Dr. Sifuentes. The patient does not report pain associated with the chronic left lateral malleolus ulcer however she does describe diffuse pain throughout the lateral aspect of the foot and heel. She states this has been present for 6 weeks however has not raised the issue at our clinic until last week. She was seen by her primary care provider who subsequently ordered an MRI that revealed a nondisplaced fracture of the calcaneus. The MRI did mention also that the chronic osteomyelitis of the lateral malleolus appears to have improved from the previous imaging. 11/06/17. Seen by Dr. Sifuentes. The patient does not report significant pain or drainage associated with the chronic left lateral malleolar nonpressure ulcers since her last visit. She stop using a dressing due to pain and feels this has resolved in the interim. She's also asked that I look at a finger on her right hand that's been slow to heal since her dog scratched her a few weeks ago. She does not report pain at the site but states it's been draining a bit. 10/23/17. Seen by Dr. Sifuentes. The patient reports some persistent and modest pain associated with chronic left lateral malleolar nonpressure ulcer since her last visit. Does not report increased drainage and has been applying topical gentamicin to treat the recurrent cognitive staph wound infection. 10/02/17. The patient reports some intermittent pain associated with chronic left lateral malleolar nonpressure ulcer since her last visit however does not report increased drainage. 09/10/17. Seen by Shon Barlow PA-C. The patient reports no increase in drainage from her left lateral malleolar ulcer. She continues to abstain from smoking. 08/20/17. Seen by Dr. Sifuentes. The patient does not report significant pain or drainage associated with the chronic left lateral malleolar nonpressure ulcers since her last visit. She applying OTC topical antibiotic as prescribed to treat a recurrent wound infection noted at her last visit. 08/06/17. Seen by Dr. Sifuentes. The patient does not report significant pain or drainage associated with the chronic left lateral malleolar nonpressure ulcers since her last visit. 07/16/17. Seen by Dr. Sifuentes. The patient does not report pain or significant drainage associated with the chronic left lateral malleolar nonpressure ulcers since her last visit. 07/09/17. Seen by Dr. Sifuentes. The patient reports some intermittent pain associated with chronic left lateral malleolar nonpressure ulcer since her last visit however does not report increased drainage. 06/27/17. Seen by Dr. Sifuentes. The patient does not report pain or significant drainage associated with the chronic left lateral malleolar ulcer since her last visit. She feels her previously reported symptoms have improved since starting on levofloxacin for the polymicrobial wound culture following her last visit. 06/20/17. Seen by Dr. Sifuentes. The patient reports some burning associated with the left lateral chronic malleoli are not pressure ulcer. Her wound culture grew stenotrophomonas , enterococcus, and a coag-negative staph. She started on levofloxacin for this to be taken around her dialysis schedule. She does not report fevers or feeling unwell. 06/13/17. Seen by Shon Barlow PA-C. The patient reports that the steri-strips that were used to reduce wound tension were painful and she removed them. Her ulcer at that time grew E.coli which she has finished her antibiotic treatment for. 05/30/17. Seen by Dr. Sifuentes. The patient reports increased pain and drainage associated with the chronic left lateral malleolar ulcer over the past few days. She continues on dialysis and is scheduled to have cataract surgery later this week. She does not report fevers or feeling unwell and is not currently on antibiotics. 04/18/17. Seen by Dr. Sifuentes. The patient does not report pain or significant drainage the chronic left lateral malleolar ulcer over the past week. 03/28/17. Seen by Dr. Sifuentes. The patient does not report significant drainage or pain associated with the chronic left lateral malleolar non-pressure ulcer since her last visit. 03/07/17. Seen by Dr. Sifuentes. The patient does not report significant drainage or pain associated with the chronic left lateral malleolar non-pressure ulcer since her last visit. 02/14/17. Seen by Dr. Sifuentes. The patient feels the drainage from the chronic left lateral malleolar non-pressure ulcer noted at the last visit has decreased. Her wound culture grew Enterococcus and Enterobacter species however she did not tolerate her ciprofloxacin due to GI upset and stopped taking it after the few couple of doses. 02/05/17. Seen by Dr. Sifuentes. The patient does not report increased pain or drainage associated with chronic left lateral malleolar nonpressure ulcers since her last visit. 01/10/17. Seen by Dr. Sifuentes. The patient reports no increase in pain or significant drainage associated with the chronic left lateral malleolar nonpressure ulcer since her last visit. 12/20/16. Seen by Dr. Sifuentes. The patient does not report drainage associated with the chronic left lateral malleolus ulcer since her last visit. 11/29/16. Seen by Dr. Sifuentes. The patient does not report significant drainage associated with the chronic left lateral malleolus ulcer since her last visit. 11/08/16. Seen by Dr. Sifuentes. The patient does not report pain or significant drainage associated with the chronic left lateral malleolus ulcer since her last visit. 10/18/16 Seen by Shon Barlow PA-C. The patient does not report any change in pain or drainage from her chronic left lateral malleolar ulcer since her last evaluation. 10/04/16. Seen by Dr. Sifuentes. The patient does not report pain or significant drainage associated with the chronic left lateral malleolus ulcer. She continues to apply gentamicin cream at each dressing change due to chronic and recurring infections at the ulcer site. 09/27/16. Seen by Dr. Sifuentes.The patient does not report significant drainage or pain associated with chronic left lateral malleolus on pressure ulcer since her last visit. She continues to apply topical gentamicin ointment for the chronic wound infection. 09/13/16. Seen by Dr. Sifuentes. The patient reports scant drainage and no pain associated with the chronic left lateral malleolar non-pressure ulcer and she's applying topical gentamicin daily to treat the recent polymicrobial wound infection as recommended. 09/04/16 Seen by Shon Barlow PA-C. The patient reports minimal drainage and she is attempting to offload the ulcer area when she sleeps using a Ono-saver ankle protector. 08/30/16. Seen by Dr. Sifuentes. The patient reports increased pain and drainage associated with the chronic left lateral malleolr non-pressure ulcer over the past week but she does not report fevers or feeling unwell. Her wound culture from the last visit grew Enterobacter, E. coli, and a coag negative Staph and she started taking Bactrim and applying topical gentamicin yesterday. She's on a 1/2 dose of Bactrim due to her end stage renal disease. 08/23/16. Seen by Dr. Sifuentes. The patient reports some increased drainage on her dressing covering the chronic left lateral malleolar non-pressure ulcer. She does no report pain however nor fevers or feeling unwell. 08/09/16. Seen by Dr. Sifuentes. The patient does not report drainage or pain associated with the chronic left lateral malleolar ulcer. 07/26/16. Seen by Dr. Sifuentes. The patient does not report drainage or pain associated with the chronic left lateral malleolar ulcer since her last visit. 07/11/16. Seen by Dr. Sifuentes. The patient does not report drainage or pain associated with the chronic left lateral malleolar ulcer since her visit last week. 06/21/16 Seen by Shon Barlow PA-C. The patient reports no change in drainage from her left lateral malleolus ulcer. 06/14/16. Seen by Dr. Sifuentes. The patient reportedly minimal drainage associated with the chronic left lateral malleolus ulcer since her last visit. Her arterial Doppler of the left leg was remarkable. 06/07/16. Seen by Dr. Sifuentes. The patient does not report pain or drainage associated with the chronic left lateral malleolar ulcer over the past week. 05/31/16. Seen by Dr. Sifuentes. The patient does not report pain or drainage associated with chronic left lateral malleolus nonpressure ulcer over the past week. Of note, her wound culture from the last visit grew a resistant coag negative Staph. She's not currently taking antibiotics. 05/24/[address] Sifuentes. The patient does not report increased pain or drainage associated with the chronic left lateral malleolar non-pressure ulcer over the past week. 05/17/[address] Sifuentes. The patient does not report pain associated with the chronic left lateral malleolar non-pressure ulcer over the past week and there's only a scant amount of drainage on her dressing today. 05/10/[address] Sifuentes. The patient does not report pain or drainage associated with the chronic left lateral malleolar ulcer or associated underlying malleolar chronic osteomyelitis over the past week. Of note, she had another Epifix skin substitute placed last week. 05/03/[address] Sifuentes. The patient does not report pain or drainage associated with the left lateral malleolar non-pressure ulcer over the past week and she's tolerating HBOT, which is treating associated underlying chronic osteomyelitis, without reporting any issues. 04/26/16 Seen by Shon Barlow PA-C. The patient reports no noted change in her chronic left lateral malleolar ulcer since her last evaluation. 04/19/[address] Sifuentes. The patient does not report pain or drainage associated with the chronic left lateral malleolar non-pressure ulcer nor underlying chronic osteomyelitis. She continues with HBOT but has completed an 8 week course of IV vancomycin. 04/12/[address] Sifuentes. The patient does not report drainage or pain associated with her chronic left lateral malleolar ulcer and underlying chronic osteomyelitis. She' s received 3 placements of Epifix recently and continues with HBOT in addition to an extended course of IV vancomycin. Her wound culture from 04/05/16 showed no organisms and had no growth. 04/05/[address] Sifuentes. The patient does not report pain or drainage from her chronic left lateral malleolar non-pressure ulcer and she continues on IV vancomycin for chronic osteomyelitis of the underlying malleolus. 03/29/[address] Sifuentes. The patient does not report pain or drainage associated with her chronic left lateral malleolar non-pressure ulcer and she continues on IV vancomycin and hyperbaric therapy for underlying chronic osteomyelitis of the malleolus. 03/22/[address] Sifuentes. The patient does not report pain or drainage associated with the chronic left lateral malleolar non-pressure ulcer. 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 She also states she's no longer smoking. 03/06/16 Seen by Shon Barlow PA-C. The patient is changing her dressing daily, as instructed but now reports decreased drainage from her ulcer. 03/01/[address] Sifuentes. The patient does not report pain or significant drainage associated with her chronic left lateral malleolar ulcer and she continues on IV vancomycin and hyperbaric oxygen therapy for underlying chronic osteomyelitis of the lateral malleolus. 02/14/16 Seen by Shon Barlow PA-C. The patient feels her left malleolar ulcer with underlying chronic osteomyelitis may be larger and has been draining more since her last evaluation. She continues on doxycycline and her ulcer culture grew a staph Spp. and E Faecalis both of which were highly resistant. She reports that she is only smoking a few cigarettes per day. Her dialysis continues at 2 times weekly. Her COPD is stable on current medications with no recent exacerbations. 02/08/[address] Sifuentes. The patient does not report pain associated with the chronic left lateral malleolar non-pressure ulcer however the staff report brown drainage on her dressing today. She continues on doxycycline for a recent polymicrobial resistant Staph culture and her recent bone scan on 01/26/16 show's persistent left lateral malleolar osteomyelitis while reporting interval improvement from her previous scan on 09/29/15. She does not report fevers or feeling unwell and she also reports that she's significantly reduced her smoking over the past week. 01/26/[address] Sifuentes. The patient does not report pain associated with the chronic left lateral malleolar non-pressure ulcer nor does she report any problems with the wound vac. She continues on doxycycline without reporting adverse side effects and her bone scan shows persistence of osteomyelitis beneath the ulcer with interval improvement from that of 09/29/16. 01/19/[address] Sifuentes. The patient does not report pain associated with the chronic left lateral malleolar non-pressure ulcer nor any problems with the wound vac. She continues on doxycycline also for a resistant coag neg Staph culture and does not report adverse side effects. 01/12/[address] Sifuentes. The patient does not report pain or significant drainage associated with the chronic left lateral malleolar ulcer. She also is now on doxycycline for a resistant coag neg Staph culture from 12/28/15 and does not report adverse effects. 01/04/[address] iSfuentes. The patient reports some increased pain just proximal to the chronic left lateral malleolar non-pressure ulcer. She's currently using only topical gentamicin to treat an intermediately resistant coag negative Staph culture from the ulcer. 12/28/[address] Sifuentes. The patient does not report drainage and reports only minimal pain associated with the chronic left lateral malleolar ulcer. Her wound culture grew only resistant Staph epi. 12/21/[address] Sifuentes. The patient does not report pain or drainage associated with the chronic left lateral malleolar ulcer and she's continues off of antibiotics. 12/07/2015 Seen by Shon Barlow PA-C. The patient's moxifloxacin has now finished and she does not report any change in left ankle pain or drainage. 11/30/2015 Seen by Shon Barlow PA-C. The patient's moxifloxacin prescription continues for 1 more week. She is currently not undergoing adjunctive hyperbaric oxygen treatments. She reports no change in ulcer pain. 11/25/[address] Sifuentes. The patient does not report any new issues regarding her chronic left lateral malleolar non-pressure ulcer however the staff report some moderate maceration. 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 11/15/15 Seen by Shon Barlow PA-C. The patient will complete her last Vancomycin infusion tomorrow and will then discontinue this antibiotic and discontinue 3x weekly dialysis and resume twice weekly dialysis. Her ulcer, overlying chronic osteomyelitis has been draining minimally and has not been reportedly painful since her last evaluation. She is now weaned off of citalopram (which had interactions with Moxifloxacin, which we originally wanted to prescribe) and she reports no depression symptoms. 11/08/15 Seen by Shon Barlow PA-C. The patient does not report increased pain or drainage from her ulcer with underlying osteomyelitis. She continues on Vancomycin. 11/03/[address] Sifuentes. The patient does not report pain and only scant drainage from the chronic left lateral malleolar ulcer and underlying chronic osteomyelitis. She's on day 24 of IV vancomycin for the Enterococcus positive wound culture and HBOT for chronic osteomyelitis. 10/27/[address] Sifuentes. The patient reports minimal discomfort and scant drainage from the left lateral malleolar ulcer and underlying chronic osteomyelitis. She continues on IV vancomycin for this problem as well as HBOT without reporting problems. 10/19/15 Seen by Shon Barlow PA-C. The patient reports a stable appearance of her ulcer. She is going to begin 3x weekly dialysis due to the administration of Vancomycin. When she completes her Vancomycin course she will resume twice weekly dialysis. 10/12/[address] Sifuentes. The patient states she's had 5 episodes of diarrhea this morning and complains of some mild left sided abdominal pain. She's been started on IV vancomycin for the left lateral malleolar ulcer cultured for Enterococcus and is under the care of her industrial hire sales assistant, Dr. Lorenzana, regarding dosing around her dialysis. She does not report drainage nor significant discomfort associated with ulcer nor underlying chronic osteomyelitis of the malleolus and continues with HBOT as adjuvant therapy without reporting problems. 10/06/[address] Sifuentes. The patient continues to report some discomfort regarding her left lateral malleolar ulcer and underlying chronic osteomyelitis. She's seen Dr. Silva, her PCP, whose started a taper of her Celexa over the next 6 weeks due to a potentially serious interaction with fluorquinolone antibiotics which could eventually be useful in treating the Enterococcus faecalis positive wound culture from 09/28/15. She does not report fever or other acute issues currently and has been off of antibiotics for the past week due to the limited options based on sensitivities. She's continued HBOT over this period while we' ve attempted to find an appropriate antibiotic solution. Of note, her bone scan from 09/29/15 confirms persistence of chronic osteomyelitis also. 09/14/15 Seen by Shon Barlow PA-C. The patient reports no difficulty with her doxycycline or HBOT treatments. Her ankle ulcer continues to drain and she has not observed much change. 09/07/[address] Sifuentes. The patient does not report significant pain or drainage associated with her left lateral malleolar ulcer and she continues on doxycycline for associated chronic osteomyelitis without reporting adverse side effects. She's also tolerating HBOT without reporting any problems. 08/24/[address] Sifuentes. The patient reports increased pain and redness in the periwound area of the left lateral malleolar ulcer that overlies the site of chronic osteomyelitis. She does not report fever, chills, sweats, or increased drainage. Her wound culture at the last visit was unremarkable despite being off of antibiotics. She's been approved for HBOT and currently does not report acute URI symptoms but states she has some chronic sinus congestion. Of note, her CXR was consistent with COPD. 08/17/[address] Sifuentes. The patient states her left lateral malleous is more tender than last week with some radiation of pain to the mid foot. She does not report increased 08/04/[address] Sifuentes. The patient attend the ER following our last visit and was sent to [facility] due to acute on chronic renal failure. She'd apparently become dehydrated due to nausea and vomiting and was dx with a small bowel obstruction. Of note, I'd contacted her to discontinue Bactrim, which she'd been on for about a month for left lateral malleolar osteomyelitis, due to her Cr increasing. This has since returned to it's baseline and she's currently not on antibiotics. She does not report increased pain, swelling or drainage associated with the overlying ulcer. She's also to complete the 2nd phase of her bone scan checking for persistence of osteomyelitis later today. 07/28/[address] Sifuentes. The patient does not report drainage or pain associated with the left lateral malleolar ulcer. She continues on an extended course of Bactrim for possible osteomyelitis which is concerning based on her history of chronic kidney disease requiring dialysis. She notes she still produces adequate urine but has not had her renal function checked since 07/05/15 when her Cr was 2.7. 07/20/[address] Sifuentes. The patient does not report any new issues such as pain or increased drainage from the left lateral malleolar ulcer. She continues on Bactrim for possible chronic osteomyelitis of the lateral malleolus. 07/13/[address] Sifuentes. The patient's new to our clinic and has been referred by Dr. Silva for a non-healing surgical wound following excision of a skin cancer ( type unconfirmed) at the left lateral malleolus. This was reportedly performed about 2 months ago and she's been on an extended course of Bactrim for the past month with some resolution in drainage and surrounding erythema. She has an MRI and bone scan of the site from the end of April that both raise suspicion for osteomyelities however. Otherwise her medical history is complicated by chronic renal failure requiring dialysis and a long history of smoking. She does not have a history of diabetes nor does she report rest pain, claudication, fever, sweats, or pain at the ulcer site. Past Medical History This information was obtained from the patient Patient has a medical history of: Depression Carpal tunnel Chronic renal Stage V (Cr 2.7 on 07/05/15; dialysis M, F) Unilateral nephrectomy Allergic rhinitis Hypertension Insomnia Lumbago Osteoporosis Peptic Ulcer Small bowel obstruction (recurrent) Chronic osteomyelitis (left lateral malleolus; dx on MRI and bone scan April 2015 ; reconfirmed on repeat bone scan 07/28/15; persistent but improved on 01/26/16 bone scan) COPD Chronic ulcer (left lateral malleolus) Complaints and Symptoms This information was obtained from the patient Patient complains of: General Notes: I have reviewed and concur with the Review of Systems and Past Family Social History documents completed by the clinician, I have reviewed and concur with the Wound Assessment document completed by the clinician Ear/Nose/Mouth/Throat: Hearing Loss / Aid Integumentary (Hair/Skin/Nails): Open Sore Prior Wound History: Drainage, Erythema, Pain Patient denies complaints or symptoms related to: Cardiovascular (Central/Peripheral): Intermittent Claudication, Lower extremity (leg) resting pain, Lower extremity (leg) swelling Constitutional Symptoms (General Health): Chills, Fever Gastrointestinal (GI): Nausea / Vomiting, Stomach/abdominal pain Hematologic/Lymphatic: Bleeding / Clotting Disorders, Bleeding Tendency Musculoskeletal: Deformities, Joint Swelling Neurological: Abnormal Gait, Loss of Protective Sensation Prior Wound History: Bleeding, Malodor Psychiatric: Memory Loss Respiratory: Oxygen Use, Shortness of Breath OBJECTIVE Constitutional Vital signs reviewed and noted. Well developed. Alert. Clean appearing.. Height/ Length: 60 in (152.4 cm), Weight: 98.4 lbs (44.73 kgs), BMI: 19.2, Temperature: 98.6 ?F (37 ?C ), Pulse: 77 bpm, Respiratory Rate: 16 breaths/min, Blood Pressure: 106/59 mmHg, Pulse Oximetry: 98 %. Ears, Nose, Mouth, and Throat: Mild hearing deficit. Respiratory: No respiratory distress. Even respirations and without use of accessory muscles.. Cardiovascular: Affected extremity exhibits no peripheral edema or cyanosis, is warm, and is well perfused. Capillary refill is less than 2 seconds. Integumentary (Hair, Skin) No periwound erythema, warmth, or significant drainage. No periwound rashes appreciated or noted otherwise.. Refer to appropriate clinician wound documentation for this visit; left lateral malleolus wound extends to subcut with base partially covered with pink granulation, remainder fibrin and slough. Moderate amount of callus in the periulcer area. Wound #2 Left, Lateral Ankle is an acute Full Thickness Surgical Wound and has received a status of Not Healed. Subsequent wound encounter measurements are 0.5cm length x 0.1cm width x 0.3cm depth, with an area of 0.05 sq cm and a volume of 0.015 cubic cm. No tunneling has been noted. No sinus tract has been noted. No undermining has been noted. There is a small amount of sero-sanguineous drainage noted which has no odor. The patient reports a wound pain of level 4/10. The wound margin is attached. Wound bed has Yes epithelialization, No eschar, Yes slough, Yes pink, firm granulation. The periwound skin texture is normal. The periwound skin color is normal. The periwound skin exhibited: Maceration. The periwound skin did not exhibit: Dry/Scaly, Moist. The temperature of the periwound skin is WNL. Periwound skin does not exhibit signs or symptoms of infection. Local Pulse is Palpable. Neurological: Cranial nerves grossly intact with symmetric function normal by informal observation.. ASSESSMENT Active Problems ICD-10 (Encounter Diagnosis) L97.322 - Non-pressure chronic ulcer of left ankle with fat layer exposed (Encounter Diagnosis) T81.31XD - Disruption of external operation (surgical) wound, not elsewhere classified, subsequent encounter PROCEDURES Wound #2 Wound #2 (Surgical Wound) is located on the left, lateral ankle. A skin/ subcutaneous tissue level surgical debridement with a total area debrided of 0.1 sq cm was performed by Isidoro Sifuentes MD. Subcutaneous was removed along with devitalized tissue: callus, slough, and maceration. The following instrument(s) were used: curette and forceps. Pain control was achieved using N/A. A time out was conducted prior to the start of the procedure. A minimal amount of bleeding was controlled with n/a. The procedure was tolerated well with a pain level of 0 throughout and a pain level of 0 following the procedure. Post Debridement Measurements: 0.5cm length x 0.2cm width x 0.4cm depth; with an area of 0.1 sq cm and a volume of 0.04 cubic cm; Wound #2 (Surgical Wound) is located on the left, lateral ankle. A skin substitute procedure was performed using Grafix Core 2x3 by Isidoro Sifuentes MD with an application area of 0.1 sq cm. The product was not fenestrated. 0.5 sq cm of product was wasted due to Product slightly larger than volume filled. 5.5 sq cm of product was utilized and was secured with Steri- Strips. Post application, a dressing was applied: Adaptic, Tielle Plus. A time out was conducted prior to the start of the procedure. The procedure was tolerated well with a pain level of 0 throughout and a pain level of 0 following the procedure. General Notes: Wound volume filled with Grafix. Additional Information Muscle fascia or bone removed and sent to pathology?: No Normal Saline Expiration Date: 02/17/2020 Application Number: : 1 Is fixing carpenter's serial number and expiration date recorded on tissue log? : Yes Is wound free of infection and necrosis? : Yes Exposed bone? : No Date of onset and previous therapies documented? : Yes Documentation of ulcer being present for 4 weeks or more? : Yes Does wound measure greater than 1.0 sq. cm? : No Are the measurements at baseline, following cessation of conservative tx and prior to application of product documented? : Yes Is BAYRON greater than 0.60 documented? : No Has the patient stopped smoking or have they had documented tobacco use/smoking cessation counseling? : No Is there documentations of concurrent medical management of patient's underlying medical conditions? : Yes PLAN Wound Orders: Wound #2 Left, Lateral Ankle Cleanser Cleanse Wound: - Normal saline and gauze. May Shower. - Cover with cast protector. Dressings Primary dressing: - Tielle Plus Change Dressing: - Leave in place until next visit. Additional Orders: Follow-Up Appointments Return Appointment: - - Tuesdays and Fridays. Other information: If you develop fever, chills, increased pain, drainage, redness or swelling please call our office. If after hours, respond to the ER. Should you experience any significant changes in your wound(s) or have any questions regarding your home care instructions please contact the wound center @ [phone]. If after hours, contact your primary care physician or go to the hospital emergency room. Scribing Attestation I attest, as the nurse, that I scribed these orders for the physician. I've reviewed the clinician's documentation and agree with the evaluation and plan as written. In addition the patient's wound demonstrates evidence of non-viable devitalized tissue which will continue to benefit from sharp debridement to help promote granulation and expedite healing. Also, I've placed a first application of a Grafix biologic skin substitute to help promote granulation and expedite healing of the refractory left lateral malleolus surgical wound. Electronic Signature(s) Signed By: Date: Isidoro Sifuentes MD 06/16/2018 07:13:12 Entered By: Isidoro Sifuentes on 06/16/2018 07:03:47
== END ==
PROVIDERS: PCP Family Medicine; Visit Provider Internal Medicine
DX: T81.31XA Disruption of external operation (surgical) wound, not elsewhere classified, initial encounter (principal); L97.322 Non-pressure chronic ulcer of left ankle with fat layer exposed
CPT/HCPCS: 15271; Q4132

== ENCOUNTER → 2018-06-17 08:26 | Outpatient (CLI) | payer MEDICARE, SELFPAY ==
--- NOTE | 2018-06-17 | OV.WND_ITS ---
Progress Note Details Patient Name: Kristine Damon Patient Number: [id number] PatientPatientDate: 06/17/2018 Clinician: Nicolette Thompson Clinician Cosigner: Cyn Gong Physician / Otolaryngology Rep: Isidoro Sifuentes SUBJECTIVE Chief Complaint This information was obtained from the patient Wound to left lateral ankle. Allergies penicillin, prednisone, cephalexin, codeine, acetaminophen, hydrocodone, ketorolac HPI This information was obtained from the patient 06/17/18. Seen by Dr. Sifuentes. The patient returns for review of the chronic left lateral malleolus surgical wound following placement of a Grafix biologic skin substitute last Saturday. She does not report pain at the wound site nor increased drainage. 06/13/18. Seen by Dr. Sifuentes. The patient does not report increased pain or drainage associated with the chronic left lateral malleolus surgical wound since her last visit and we're considering placing a Grafix biologic skin substitute today to help promote granulation of this very refractory surgical wound. 06/10/18. Seen by Dr. Sifuentes. The patient does not report increased pain or drainage associated with the chronic left lateral malleolus surgical wound since her last visit. 06/06/18. Seen by Dr. Sifuentes. The patient does not report increased pain or drainage associated with the chronic left lateral malleolus surgical wound since her last visit. 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 She's also no longer on antibiotics and her wound has been showing modest progress over the past 3 weeks since changing to a SNAP wound vac from a ROMEL. 06/03/18. Seen by Dr. Sifuentes. The patient does not report increased pain or drainage associated with the chronic left lateral malleolus surgical wound since her last visit and she's tolerating NPWT with the ROMEL wound vac without difficulty. 05/27/18. Seen by Dr. Sifuentes. The patient does not report increased pain or drainage associated with the chronic left lateral malleolus surgical wound since her last visit and she's tolerating NPWT without difficulty. 05/23/18. Seen by Dr. Sifuentes. The patient does not report increased pain or drainage associated with the chronic left lateral malleolus surgical wound since her last visit and she's tolerating NPWT without difficulty. 05/20/18. Seen by Dr. Sifuentes. The patient does not report increased pain or drainage associated with the chronic left lateral malleolus surgical wound since her last visit and she's tolerating NPWT without difficulty. She continues on IV vancomycin during dialysis for the recent and reccurrent Enterococcus positive wound culture also however notes 2 doses were accidentally missed during dialysis last week. Her regimen completes today and her MRI of the ankle was inconclusive regarding the presence of osteomyelitis. 05/16/18. Seen by Dr. Sifuentes. The patient does not report increased pain or drainage associated with the chronic left lateral malleolus surgical wound since her last visit and she's tolerating NPWT without difficulty. She continues on IV vancomycin during dialysis for the recent Enterococcus positive wound culture also. Her MRI which was performed to re-evaluate the calcaneal stress fracture reports a cortical irregularity along the lateral malleolus that may represent osteomyelitis but must be considered in the context of her surgical debridement also. 05/13/18. Seen by Dr. Sifuentes. The patient reports continued pain in the left lateral malleolus posterior to the surgical wound and she has an MRI scheduled for this morning to evaluate the source of the pain. She also continues on IV vancomycin that's treating the recurrent Enterococcus positive culture and being infused during dialysis. She does not report fevers or feeling unwell otherwise and is tolerating negative pressure wound therapy without difficulty. 05/09/18. Seen by Shon Barlow PA-C. The patient continues on Vancomycin for her left malleolar wound infection which demonstrates stable drainage this week. 05/06/18. Seen by Shon Barlow PA-C. The patient reports stable drainage from her left malleolar wound and continues on Vancomycin to treat the Enterococcus infection of this wound. 05/02/18. Seen by Dr. Sifuentes. The patient reports improvement in the left foot pain and does not report increased drainage or other acute issues regarding the left lateral malleolus surgical wound that's being treated with negative pressure wound therapy. She's also continues on IV vancomycin during dialysis that's treating the recent Enterococcus positive wound culture. 04/29/18. Seen by Dr. Sifuentes. The patient reports improvement in the left foot pain over the past week and does not report increased drainage or other acute issues regarding the left lateral malleolus surgical wound that's being treated with negative pressure wound therapy. She's also now had 2 doses of IV vancomycin during dialysis this week that's treating the recent Enterococcus positive wound culture. 04/25/18. Seen by Dr. Sifuentes. The patient reports improvement in terms of pain associated with the chronic left lateral malleolus surgical wound since starting on IV vancomycin for the recently Enterococcus positive wound culture. She does not report adverse side effects and is receiving her antibiotics during dialysis. 04/22/18. Seen by Dr. Sifuentes. The patient reports some continued pain associated with the chronic left lateral malleolus surgical wound and she's been applying topical gentamicin to treat the recent Enterococcus positive wound culture. Her wound vac was discontinued last week also. Of note. she takes citalopram which complicates treating her wound infection with oral antibiotics and is also on dialysis for end stage renal disease and has received IV vancomycin without difficulty for her previous Enterococcus wound infections. 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 04/18/18. Seen by Dr. Sifuentes. The patient reports decreased pain associated with the chronic left lateral malleolus surgical wound over the past week since we held her wound vac. Her culture grew Enterococcus and she's not currently on antibiotics for this. Of note, her wound healing is complicated considerably by her end stage renal disease and being on dialysis and the wound is a result of deep bone debridement that was performed for chronic osteomyelitis of the malleolus. 04/15/18. Seen by Dr. Sifuentes. The patient continues to report persistent pain associated with the chronic left lateral malleolus surgical wound however she does not report increased drainage and has tolerated NPWT with the SNAP wound vac without difficulty. She' s now been off of antibiotics for the past month and underwent surgical bone debridement for chronic osteomyeylitis of the malleolus in late January. 04/11/18. Seen by Dr. Sifuentes. The patient does not report any new acute issues regarding her chronic left lateral malleolus surgical wound and she's tolerating NPWT with the SNAP wound vac without difficulty. 04/08/18. Seen by Dr. Sifuentes. The patient does not report any new acute issues regarding her chronic left lateral malleolus surgical wound and she's tolerating NPWT with the SNAP wound vac without difficulty. 04/04/18. Seen by Dr. Sifuentes. The patient continues to report pain associated with the chronic left lateral malleolus surgical wound despite the fact we discontinued NPWT at her last visit. Her wound culture grew only yeast and Diptheroids. 04/01/2018. Seen by Dr. Sifuentes. The patient continues to report pain associated with the chronic left lateral malleolus surgical wound. She does not report significant drainage from the site and has tolerated negative pressure wound therapy. She is not currently on antibiotics and has no other acute complaints today. 03/28/18. Seen by Dr. Sifuentes. The patient does not report significant pain nor drainage associated chronic left lateral malleolus surgical wound since her last visit and she's tolerating NPWT with the SNAP wound vac without difficulty. 03/25/18. Seen by Dr. Sifuentes. The patient continues to report pain throughout the midfoot and dorsum of the left foot that limits her ability to walk to only a couple of minutes at a time. She does not report any changes regarding the left lateral ankle surgical wound and is tolerating negative pressure wound therapy without difficulty. She's also not currently on oral antibiotics. 03/18/18. Seen by Dr. Sifuentes. The patient reports intermittent pain associated with the left lateral ankle however shoes are report increased drainage from the lateral malleolus surgical wound since her last visit. She is also tolerating negative pressure wound therapy without difficulty. 03/11/18. Seen by Dr Sifuentes.The patient reports some intermittent pain in the left lateral ankle when bearing weight but does not report significant drainage associated with the left lateral malleolus surgical wound since her last visit. She was changed from ciprofloxacin to doxycycline based on the recent culture growing a resistant coag negative staph organism. She does not report adverse side effects, fevers, or other acute issues today. 03/04/18. Seen by Dr. Sifuentes. The patient does not report significant pain nor drainage associated chronic left lateral malleolus surgical wound since her last visit. She continues on ciprofloxacin for chronic osteomyelitis also without reported adverse side effects. 02/25/18. Seen by Dr. Sifuentes. 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 She saw Dr. John last week and will start to use a bone stimulator to help heal the pathologic fracture. She does not report significant drainage associated with the left lateral malleolus surgical wound. 02/18/18. Seen by Dr. Sifuentes. The patient reports ongoing, but decreasing, pain associated with the left lateral malleolus surgical wound and she continues on ciprofloxacin and Flagy for chronic osteomyelitis without reporting adverse side effects. She'll see her surgeon, Dr. John, this . 02/14/18. Seen by Dr. Sifuentes. The patient reports decreased pain associated with the left lateral malleolus surgical wound and staff report only a moderate amount of drainage on the ROMEL wound vac dressing. She continues on cipro and Flagyl for chronic osteomyelitis and does not report adverse side effects or feeling unwell in general. 02/11/18. Seen by Dr. Sifuentes. The patient continues to report some persistent pain associated with the chronic left lateral malleolus surgical wound since her last visit. She does not report increased drainage however and is scheduled to see Dr. John, her orthopedic surgeon, next Saturday. She continues on ciprofloxacin and Flagyl as well and her surgery was a deep bone debridement to address the chronic osteomyelitis of the malleolus. 02/07/18. Seen by Dr. Sifuentes. 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 John. She reports some persistent discomfort at the wound site and is now on ciprofloxacin and Flagyl. Culture results of the execised bone are not yet available and the patient does not report any adverse side effects from the antibiotics, fevers, nor feeling unwell. 11/27/17. Seen by Dr. Sifuentes. The patient does not report pain associated with the chronic left lateral malleolus ulcer however she does describe diffuse pain throughout the lateral aspect of the foot and heel. She states this has been present for 6 weeks however has not raised the issue at our clinic until last week. She was seen by her primary care provider who subsequently ordered an MRI that revealed a nondisplaced fracture of the calcaneus. The MRI did mention also that the chronic osteomyelitis of the lateral malleolus appears to have improved from the previous imaging. 11/06/17. Seen by Dr. Sifuentes. The patient does not report significant pain or drainage associated with the chronic left lateral malleolar nonpressure ulcers since her last visit. She stop using a dressing due to pain and feels this has resolved in the interim. She's also asked that I look at a finger on her right hand that's been slow to heal since her dog scratched her a few weeks ago. She does not report pain at the site but states it's been draining a bit. 10/23/17. Seen by Dr. Sifuentes. The patient reports some persistent and modest pain associated with chronic left lateral malleolar nonpressure ulcer since her last visit. Does not report increased drainage and has been applying topical gentamicin to treat the recurrent cognitive staph wound infection. 10/02/17. The patient reports some intermittent pain associated with chronic left lateral malleolar nonpressure ulcer since her last visit however does not report increased drainage. 09/10/17. Seen by Shon Barlow PA-C. The patient reports no increase in drainage from her left lateral malleolar ulcer. She continues to abstain from smoking. 08/20/17. Seen by Dr. Sifuentes. The patient does not report significant pain or drainage associated with the chronic left lateral malleolar nonpressure ulcers since her last visit. She applying OTC topical antibiotic as prescribed to treat a recurrent wound infection noted at her last visit. 08/06/17. Seen by Dr. Sifuentes. The patient does not report significant pain or drainage associated with the chronic left lateral malleolar nonpressure ulcers since her last visit. 07/16/17. Seen by Dr. Sifuentes. The patient does not report pain or significant drainage associated with the chronic left lateral malleolar nonpressure ulcers since her last visit. 07/09/17. Seen by Dr. Sifuentes. The patient reports some intermittent pain associated with chronic left lateral malleolar nonpressure ulcer since her last visit however does not report increased drainage. 06/27/17. Seen by Dr. Sifuentes. The patient does not report pain or significant drainage associated with the chronic left lateral malleolar ulcer since her last visit. She feels her previously reported symptoms have improved since starting on levofloxacin for the polymicrobial wound culture following her last visit. 06/20/17. Seen by Dr. Sifuentes. The patient reports some burning associated with the left lateral chronic malleoli are not pressure ulcer. Her wound culture grew stenotrophomonas , enterococcus, and a coag-negative staph. She started on levofloxacin for this to be taken around her dialysis schedule. She does not report fevers or feeling unwell. 06/13/17. Seen by Shon Barlow PA-C. The patient reports that the steri-strips that were used to reduce wound tension were painful and she removed them. Her ulcer at that time grew E.coli which she has finished her antibiotic treatment for. 05/30/17. Seen by Dr. Sifuentes. The patient reports increased pain and drainage associated with the chronic left lateral malleolar ulcer over the past few days. She continues on dialysis and is scheduled to have cataract surgery later this week. She does not report fevers or feeling unwell and is not currently on antibiotics. 04/18/17. Seen by Dr. Sifuentes. The patient does not report pain or significant drainage the chronic left lateral malleolar ulcer over the past week. 03/28/17. Seen by Dr. Sifuentes. The patient does not report significant drainage or pain associated with the chronic left lateral malleolar non-pressure ulcer since her last visit. 03/07/17. Seen by Dr. Sifuentes. The patient does not report significant drainage or pain associated with the chronic left lateral malleolar non-pressure ulcer since her last visit. 02/14/17. Seen by Dr. Sifuentes. The patient feels the drainage from the chronic left lateral malleolar non-pressure ulcer noted at the last visit has decreased. Her wound culture grew Enterococcus and Enterobacter species however she did not tolerate her ciprofloxacin due to GI upset and stopped taking it after the few couple of doses. 02/05/17. Seen by Dr. Sifuentes. The patient does not report increased pain or drainage associated with chronic left lateral malleolar nonpressure ulcers since her last visit. 01/10/17. Seen by Dr. Sifuentes. The patient reports no increase in pain or significant drainage associated with the chronic left lateral malleolar nonpressure ulcer since her last visit. 12/20/16. Seen by Dr. Sifuentes. The patient does not report drainage associated with the chronic left lateral malleolus ulcer since her last visit. 11/29/16. Seen by Dr. Sifuentes. The patient does not report significant drainage associated with the chronic left lateral malleolus ulcer since her last visit. 11/08/16. Seen by Dr. Sifuentes. The patient does not report pain or significant drainage associated with the chronic left lateral malleolus ulcer since her last visit. 10/18/16 Seen by Shon Barlow PA-C. The patient does not report any change in pain or drainage from her chronic left lateral malleolar ulcer since her last evaluation. 10/04/16. Seen by Dr. Sifuentes. The patient does not report pain or significant drainage associated with the chronic left lateral malleolus ulcer. She continues to apply gentamicin cream at each dressing change due to chronic and recurring infections at the ulcer site. 09/27/16. Seen by Dr. Sifuentes.The patient does not report significant drainage or pain associated with chronic left lateral malleolus on pressure ulcer since her last visit. She continues to apply topical gentamicin ointment for the chronic wound infection. 09/13/16. Seen by Dr. Sifuentes. The patient reports scant drainage and no pain associated with the chronic left lateral malleolar non-pressure ulcer and she's applying topical gentamicin daily to treat the recent polymicrobial wound infection as recommended. 09/04/16 Seen by Shon Barlow PA-C. The patient reports minimal drainage and she is attempting to offload the ulcer area when she sleeps using a [place]-saver ankle protector. 08/30/16. Seen by Dr. Sifuentes. The patient reports increased pain and drainage associated with the chronic left lateral malleolr non-pressure ulcer over the past week but she does not report fevers or feeling unwell. Her wound culture from the last visit grew Enterobacter, E. coli, and a coag negative Staph and she started taking Bactrim and applying topical gentamicin yesterday. She's on a 1/2 dose of Bactrim due to her end stage renal disease. 08/23/16. Seen by Dr. Sifuentes. The patient reports some increased drainage on her dressing covering the chronic left lateral malleolar non-pressure ulcer. She does no report pain however nor fevers or feeling unwell. 08/09/16. Seen by Dr. Sifuentes. The patient does not report drainage or pain associated with the chronic left lateral malleolar ulcer. 07/26/16. Seen by Dr. Sifuentes. The patient does not report drainage or pain associated with the chronic left lateral malleolar ulcer since her last visit. 07/11/16. Seen by Dr. Sifuentes. The patient does not report drainage or pain associated with the chronic left lateral malleolar ulcer since her visit last week. 06/21/16 Seen by Shon Barlow PA-C. The patient reports no change in drainage from her left lateral malleolus ulcer. 06/14/16. Seen by Dr. Sifuentes. The patient reportedly minimal drainage associated with the chronic left lateral malleolus ulcer since her last visit. Her arterial Doppler of the left leg was remarkable. 06/07/16. Seen by Dr. Sifuentes. The patient does not report pain or drainage associated with the chronic left lateral malleolar ulcer over the past week. 05/31/16. Seen by Dr. Sifuentes. The patient does not report pain or drainage associated with chronic left lateral malleolus nonpressure ulcer over the past week. Of note, her wound culture from the last visit grew a resistant coag negative Staph. She's not currently taking antibiotics. 05/24/[address] Sifuentes. The patient does not report increased pain or drainage associated with the chronic left lateral malleolar non-pressure ulcer over the past week. 05/17/[address] Sifuentes. The patient does not report pain associated with the chronic left lateral malleolar non-pressure ulcer over the past week and there's only a scant amount of drainage on her dressing today. 05/10/[address] Sifuentes. The patient does not report pain or drainage associated with the chronic left lateral malleolar ulcer or associated underlying malleolar chronic osteomyelitis over the past week. Of note, she had another Epifix skin substitute placed last week. 05/03/[address] Sifuentes. The patient does not report pain or drainage associated with the left lateral malleolar non-pressure ulcer over the past week and she's tolerating HBOT, which is treating associated underlying chronic osteomyelitis, without reporting any issues. 04/26/16 Seen by Shon Barlow PA-C. The patient reports no noted change in her chronic left lateral malleolar ulcer since her last evaluation. 04/19/[address] Sifuentes. The patient does not report pain or drainage associated with the chronic left lateral malleolar non-pressure ulcer nor underlying chronic osteomyelitis. She continues with HBOT but has completed an 8 week course of IV vancomycin. 04/12/[address] Sifuentes. The patient does not report drainage or pain associated with her chronic left lateral malleolar ulcer and underlying chronic osteomyelitis. She' s received 3 placements of Epifix recently and continues with HBOT in addition to an extended course of IV vancomycin. Her wound culture from 04/05/16 showed no organisms and had no growth. 04/05/[address] Sifuentes. The patient does not report pain or drainage from her chronic left lateral malleolar non-pressure ulcer and she continues on IV vancomycin for chronic osteomyelitis of the underlying malleolus. 03/29/[address] Sifuentes. The patient does not report pain or drainage associated with her chronic left lateral malleolar non-pressure ulcer and she continues on IV vancomycin and hyperbaric therapy for underlying chronic osteomyelitis of the malleolus. 03/22/[address] Sifuentes. The patient does not report pain or drainage associated with the chronic left lateral malleolar non-pressure ulcer. 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 She also states she's no longer smoking. 03/06/16 Seen by Shon Barlow PA-C. The patient is changing her dressing daily, as instructed but now reports decreased drainage from her ulcer. 03/01/[address] Sifuentes. The patient does not report pain or significant drainage associated with her chronic left lateral malleolar ulcer and she continues on IV vancomycin and hyperbaric oxygen therapy for underlying chronic osteomyelitis of the lateral malleolus. 02/14/16 Seen by Shon Barlow PA-C. The patient feels her left malleolar ulcer with underlying chronic osteomyelitis may be larger and has been draining more since her last evaluation. She continues on doxycycline and her ulcer culture grew a staph Spp. and E Faecalis both of which were highly resistant. She reports that she is only smoking a few cigarettes per day. Her dialysis continues at 2 times weekly. Her COPD is stable on current medications with no recent exacerbations. 02/08/[address] Sifuentes. The patient does not report pain associated with the chronic left lateral malleolar non-pressure ulcer however the staff report brown drainage on her dressing today. She continues on doxycycline for a recent polymicrobial resistant Staph culture and her recent bone scan on 01/26/16 show's persistent left lateral malleolar osteomyelitis while reporting interval improvement from her previous scan on 09/29/15. She does not report fevers or feeling unwell and she also reports that she's significantly reduced her smoking over the past week. 01/26/[address] Sifuentes. The patient does not report pain associated with the chronic left lateral malleolar non-pressure ulcer nor does she report any problems with the wound vac. She continues on doxycycline without reporting adverse side effects and her bone scan shows persistence of osteomyelitis beneath the ulcer with interval improvement from that of 09/29/16. 01/19/[address] Sifuentes. The patient does not report pain associated with the chronic left lateral malleolar non-pressure ulcer nor any problems with the wound vac. She continues on doxycycline also for a resistant coag neg Staph culture and does not report adverse side effects. 01/12/[address] Sifuentes. The patient does not report pain or significant drainage associated with the chronic left lateral malleolar ulcer. She also is now on doxycycline for a resistant coag neg Staph culture from 12/28/15 and does not report adverse effects. 01/04/[address] Sifuentes. The patient reports some increased pain just proximal to the chronic left lateral malleolar non-pressure ulcer. She's currently using only topical gentamicin to treat an intermediately resistant coag negative Staph culture from the ulcer. 12/28/[address] Sifuentes. The patient does not report drainage and reports only minimal pain associated with the chronic left lateral malleolar ulcer. Her wound culture grew only resistant Staph epi. 12/21/[address] Sifuentes. The patient does not report pain or drainage associated with the chronic left lateral malleolar ulcer and she's continues off of antibiotics. 12/07/2015 Seen by Shon Barlow PA-C. The patient's moxifloxacin has now finished and she does not report any change in left ankle pain or drainage. 11/30/2015 Seen by Shon Barlow PA-C. The patient's moxifloxacin prescription continues for 1 more week. She is currently not undergoing adjunctive hyperbaric oxygen treatments. She reports no change in ulcer pain. 11/25/[address] Sifuentes. The patient does not report any new issues regarding her chronic left lateral malleolar non-pressure ulcer however the staff report some moderate maceration. 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 11/15/15 Seen by Shon Barlow PA-C. The patient will complete her last Vancomycin infusion tomorrow and will then discontinue this antibiotic and discontinue 3x weekly dialysis and resume twice weekly dialysis. Her ulcer, overlying chronic osteomyelitis has been draining minimally and has not been reportedly painful since her last evaluation. She is now weaned off of citalopram (which had interactions with Moxifloxacin, which we originally wanted to prescribe) and she reports no depression symptoms. 11/08/15 Seen by Shon Barlow PA-C. The patient does not report increased pain or drainage from her ulcer with underlying osteomyelitis. She continues on Vancomycin. 11/03/[address] Sifuentes. The patient does not report pain and only scant drainage from the chronic left lateral malleolar ulcer and underlying chronic osteomyelitis. She's on day 24 of IV vancomycin for the Enterococcus positive wound culture and HBOT for chronic osteomyelitis. 10/27/[address] Sifuentes. The patient reports minimal discomfort and scant drainage from the left lateral malleolar ulcer and underlying chronic osteomyelitis. She continues on IV vancomycin for this problem as well as HBOT without reporting problems. 10/19/15 Seen by Shon Barlow PA-C. The patient reports a stable appearance of her ulcer. She is going to begin 3x weekly dialysis due to the administration of Vancomycin. When she completes her Vancomycin course she will resume twice weekly dialysis. 10/12/[address] Sifuentes. The patient states she's had 5 episodes of diarrhea this morning and complains of some mild left sided abdominal pain. She's been started on IV vancomycin for the left lateral malleolar ulcer cultured for Enterococcus and is under the care of her medical resident, Dr. Lorenzana, regarding dosing around her dialysis. She does not report drainage nor significant discomfort associated with ulcer nor underlying chronic osteomyelitis of the malleolus and continues with HBOT as adjuvant therapy without reporting problems. 10/06/[address] Sifuentes. The patient continues to report some discomfort regarding her left lateral malleolar ulcer and underlying chronic osteomyelitis. She's seen Dr. Silva, her PCP, whose started a taper of her Celexa over the next 6 weeks due to a potentially serious interaction with fluorquinolone antibiotics which could eventually be useful in treating the Enterococcus faecalis positive wound culture from 09/28/15. She does not report fever or other acute issues currently and has been off of antibiotics for the past week due to the limited options based on sensitivities. She's continued HBOT over this period while we' ve attempted to find an appropriate antibiotic solution. Of note, her bone scan from 09/29/15 confirms persistence of chronic osteomyelitis also. 09/14/15 Seen by Shon Barlow PA-C. The patient reports no difficulty with her doxycycline or HBOT treatments. Her ankle ulcer continues to drain and she has not observed much change. 09/07/[address] Sifuentes. The patient does not report significant pain or drainage associated with her left lateral malleolar ulcer and she continues on doxycycline for associated chronic osteomyelitis without reporting adverse side effects. She's also tolerating HBOT without reporting any problems. 08/24/[address] Sifuentes. The patient reports increased pain and redness in the periwound area of the left lateral malleolar ulcer that overlies the site of chronic osteomyelitis. She does not report fever, chills, sweats, or increased drainage. Her wound culture at the last visit was unremarkable despite being off of antibiotics. She's been approved for HBOT and currently does not report acute URI symptoms but states she has some chronic sinus congestion. Of note, her CXR was consistent with COPD. 08/17/[address] Sifuentes. The patient states her left lateral malleous is more tender than last week with some radiation of pain to the mid foot. She does not report increased 08/04/[address] Sifuentes. The patient attend the ER following our last visit and was sent to [facility] due to acute on chronic renal failure. She'd apparently become dehydrated due to nausea and vomiting and was dx with a small bowel obstruction. Of note, I'd contacted her to discontinue Bactrim, which she'd been on for about a month for left lateral malleolar osteomyelitis, due to her Cr increasing. This has since returned to it's baseline and she's currently not on antibiotics. She does not report increased pain, swelling or drainage associated with the overlying ulcer. She's also to complete the 2nd phase of her bone scan checking for persistence of osteomyelitis later today. 07/28/[address] Sifeuntes. The patient does not report drainage or pain associated with the left lateral malleolar ulcer. She continues on an extended course of Bactrim for possible osteomyelitis which is concerning based on her history of chronic kidney disease requiring dialysis. She notes she still produces adequate urine but has not had her renal function checked since 07/05/15 when her Cr was 2.7. 07/20/[address] Sifuentes. The patient does not report any new issues such as pain or increased drainage from the left lateral malleolar ulcer. She continues on Bactrim for possible chronic osteomyelitis of the lateral malleolus. 07/13/[address] Sifuentes. The patient's new to our clinic and has been referred by Dr. Silva for a non-healing surgical wound following excision of a skin cancer ( type unconfirmed) at the left lateral malleolus. This was reportedly performed about 2 months ago and she's been on an extended course of Bactrim for the past month with some resolution in drainage and surrounding erythema. She has an MRI and bone scan of the site from the end of April that both raise suspicion for osteomyelities however. Otherwise her medical history is complicated by chronic renal failure requiring dialysis and a long history of smoking. She does not have a history of diabetes nor does she report rest pain, claudication, fever, sweats, or pain at the ulcer site. Past Medical History This information was obtained from the patient Patient has a medical history of: Depression Carpal tunnel Chronic renal Stage V (Cr 2.7 on 07/05/15; dialysis M, F) Unilateral nephrectomy Allergic rhinitis Hypertension Insomnia Lumbago Osteoporosis Peptic Ulcer Small bowel obstruction (recurrent) Chronic osteomyelitis (left lateral malleolus; dx on MRI and bone scan April 2015 ; reconfirmed on repeat bone scan 07/28/15; persistent but improved on 01/26/16 bone scan) COPD Chronic ulcer (left lateral malleolus) Complaints and Symptoms This information was obtained from the patient Patient complains of: General Notes: I have reviewed and concur with the Review of Systems and Past Family Social History documents completed by the clinician, I have reviewed and concur with the Wound Assessment document completed by the clinician Ear/Nose/Mouth/Throat: Hearing Loss / Aid Integumentary (Hair/Skin/Nails): Open Sore Prior Wound History: Drainage, Erythema, Pain Patient denies complaints or symptoms related to: Cardiovascular (Central/Peripheral): Intermittent Claudication, Lower extremity (leg) resting pain, Lower extremity (leg) swelling Constitutional Symptoms (General Health): Chills, Fever Gastrointestinal (GI): Nausea / Vomiting, Stomach/abdominal pain Hematologic/Lymphatic: Bleeding / Clotting Disorders, Bleeding Tendency Musculoskeletal: Deformities, Joint Swelling Neurological: Abnormal Gait, Loss of Protective Sensation Prior Wound History: Bleeding, Malodor Psychiatric: Memory Loss Respiratory: Oxygen Use, Shortness of Breath OBJECTIVE Constitutional Vital signs reviewed and noted. Well developed. Alert. Clean appearing.. Height/ Length: 60 in (152.4 cm), Weight: 98.4 lbs (44.73 kgs), BMI: 19.2, Temperature: 97.1 ?F ( 36.17 ?C), Pulse: 62 bpm, Respiratory Rate: 18 breaths/min, Blood Pressure: 120/68 mmHg, Pulse Oximetry: 97 %. Ears, Nose, Mouth, and Throat: Mild hearing deficit. Cardiovascular: Affected extremity exhibits no peripheral edema or cyanosis, is warm, and is well perfused. Capillary refill is less than 2 seconds. Integumentary (Hair, Skin) No periwound erythema, warmth, or significant drainage. No periwound rashes appreciated or noted otherwise.. Refer to appropriate clinician wound documentation for this visit; left lateal malleolus wound extends to subcut with base partially covered with pink granulation, remainder fibrin and slough; smaller and less deep than on previous review; no signs of clinically significant infection. Wound #2 Left, Lateral Ankle is an acute Full Thickness Surgical Wound and has received a status of Not Healed. Subsequent wound encounter measurements are 0.2cm length x 0.2cm width x 0.2cm depth, with an area of 0.04 sq cm and a volume of 0.008 cubic cm. No tunneling has been noted. No sinus tract has been noted. No undermining has been noted. There is a small amount of serous drainage noted which has no odor. The patient reports a wound pain of level 4/10. The wound margin is attached. Wound bed has No epithelialization, No eschar, No slough, No granulation. The periwound skin texture is normal. The periwound skin color is normal. The periwound skin did not exhibit: Dry/Scaly, Moist, Maceration. The temperature of the periwound skin is WNL. Periwound skin does not exhibit signs or symptoms of infection. Local Pulse is Palpable. Neurological: Cranial nerves grossly intact with symmetric function normal by informal observation.. ASSESSMENT Active Problems ICD-10 (Encounter Diagnosis) L97.322 - Non-pressure chronic ulcer of left ankle with fat layer exposed (Encounter Diagnosis) T81.31XD - Disruption of external operation (surgical) wound, not elsewhere classified, subsequent encounter PROCEDURES Wound #2 Wound #2 (Surgical Wound) is located on the left, lateral ankle. A non- selective mechanical debridement with a total area debrided of 0.04 sq cm was performed by Isidoro Sifuentes MD. Non-viable tissue was removed.The procedure was tolerated well with a pain level of 0 throughout and a pain level of 0 following the procedure. Post Debridement Measurements: 0.2cm length x 0.2cm width x 0.2cm depth; with an area of 0.04 sq cm and a volume of 0.008 cubic cm; General Notes: SNAP 8x8. [place] around wound. Wound #2 (Surgical Wound) is located on the left, lateral ankle. A Disposable Wound Vac Application < 50 Sq Cm procedure was performed for the lower left extremity by Isidoro Sifuentes MD. A time out was conducted prior to the start of the procedure. The procedure was tolerated well. General Notes: SNAP 125mmHg. PLAN Wound Orders: Wound #2 Left, Lateral Ankle Cleanser Cleanse Wound: - Normal Saline May shower with SNAP dressing - Use Shower Boot Dressings SNAP Dressing - Keep in place, we will change dressing on Saturday. Follow-Up Appointments Return Appointment: - - Next appointment Wednesday, June 20, 2018 Negative pressure wound therapy will be utilized to facilitate granulation and removal of exudate and infectious material with the goal of expediting wound healing. Also, the surgical wound appears clean and the Grafix product remains intact. Electronic Signature(s) Signed By: Date: Isidoro Sifuentes MD 06/18/2018 07:32:51 Entered By: Isidoro Sifuentes on 06/18/2018 07:31:11
== END ==
PROVIDERS: PCP Family Medicine; Visit Provider Internal Medicine
DX: L97.322 Non-pressure chronic ulcer of left ankle with fat layer exposed (principal); T81.31XD Disruption of external operation (surgical) wound, not elsewhere classified, subsequent encounter
CPT/HCPCS: 97602; 97607

== ENCOUNTER → 2018-06-20 11:18 | Outpatient (CLI) | payer MEDICARE, SELFPAY ==
--- NOTE | 2018-06-20 | OV.WND_ITS ---
Progress Note Details Patient Name: Kristine Damon Patient Number: [id number] PatientPatientDate: 06/20/2018 Clinician: Morelia Ibarra Clinician Cosigner: Cyn Gong Physician / Grader Marker: Isidoro Sifuentes SUBJECTIVE Chief Complaint This information was obtained from the patient Wound to left lateral ankle. Allergies penicillin, prednisone, cephalexin, codeine, acetaminophen, hydrocodone, ketorolac HPI This information was obtained from the patient 06/20/18. Seen by Dr. Sifuentes. The patient does not report increased drainage associated with the chronic left lateral malleolus surgical wound since her last visit however she does report some pain at the wound site. 06/17/18. Seen by Dr. Sifuentes. The patient returns for review of the chronic left lateral malleolus surgical wound following placement of a Grafix biologic skin substitute last Saturday. She does not report pain at the wound site nor increased drainage. 06/13/18. Seen by Dr. Sifuentes. The patient does not report increased pain or drainage associated with the chronic left lateral malleolus surgical wound since her last visit and we're considering placing a Grafix biologic skin substitute today to help promote granulation of this very refractory surgical wound. 06/10/18. Seen by Dr. Sifuentes. The patient does not report increased pain or drainage associated with the chronic left lateral malleolus surgical wound since her last visit. 06/06/18. Seen by Dr. Sifuentes. The patient does not report increased pain or drainage associated with the chronic left lateral malleolus surgical wound since her last visit. 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 She's also no longer on antibiotics and her wound has been showing modest progress over the past 3 weeks since changing to a SNAP wound vac from a ROMEL. 06/03/18. Seen by Dr. Sifuentes. The patient does not report increased pain or drainage associated with the chronic left lateral malleolus surgical wound since her last visit and she's tolerating NPWT with the ROMEL wound vac without difficulty. 05/27/18. Seen by Dr. Sifuentes. The patient does not report increased pain or drainage associated with the chronic left lateral malleolus surgical wound since her last visit and she's tolerating NPWT without difficulty. 05/23/18. Seen by Dr. Sifuentes. The patient does not report increased pain or drainage associated with the chronic left lateral malleolus surgical wound since her last visit and she's tolerating NPWT without difficulty. 05/20/18. Seen by Dr. Sifuentes. The patient does not report increased pain or drainage associated with the chronic left lateral malleolus surgical wound since her last visit and she's tolerating NPWT without difficulty. She continues on IV vancomycin during dialysis for the recent and reccurrent Enterococcus positive wound culture also however notes 2 doses were accidentally missed during dialysis last week. Her regimen completes today and her MRI of the ankle was inconclusive regarding the presence of osteomyelitis. 05/16/18. Seen by Dr. Sifuentes. The patient does not report increased pain or drainage associated with the chronic left lateral malleolus surgical wound since her last visit and she's tolerating NPWT without difficulty. She continues on IV vancomycin during dialysis for the recent Enterococcus positive wound culture also. Her MRI which was performed to re-evaluate the calcaneal stress fracture reports a cortical irregularity along the lateral malleolus that may represent osteomyelitis but must be considered in the context of her surgical debridement also. 05/13/18. Seen by Dr. Sifuentes. The patient reports continued pain in the left lateral malleolus posterior to the surgical wound and she has an MRI scheduled for this morning to evaluate the source of the pain. She also continues on IV vancomycin that's treating the recurrent Enterococcus positive culture and being infused during dialysis. She does not report fevers or feeling unwell otherwise and is tolerating negative pressure wound therapy without difficulty. 05/09/18. Seen by Shon Barlow PA-C. The patient continues on Vancomycin for her left malleolar wound infection which demonstrates stable drainage this week. 05/06/18. Seen by Shon Barlow PA-C. The patient reports stable drainage from her left malleolar wound and continues on Vancomycin to treat the Enterococcus infection of this wound. 05/02/18. Seen by Dr. Sifuentes. The patient reports improvement in the left foot pain and does not report increased drainage or other acute issues regarding the left lateral malleolus surgical wound that's being treated with negative pressure wound therapy. She's also continues on IV vancomycin during dialysis that's treating the recent Enterococcus positive wound culture. 04/29/18. Seen by Dr. Sifuentes. The patient reports improvement in the left foot pain over the past week and does not report increased drainage or other acute issues regarding the left lateral malleolus surgical wound that's being treated with negative pressure wound therapy. She's also now had 2 doses of IV vancomycin during dialysis this week that's treating the recent Enterococcus positive wound culture. 04/25/18. Seen by Dr. Sifuentes. The patient reports improvement in terms of pain associated with the chronic left lateral malleolus surgical wound since starting on IV vancomycin for the recently Enterococcus positive wound culture. She does not report adverse side effects and is receiving her antibiotics during dialysis. 04/22/18. Seen by Dr. Sifuentes. The patient reports some continued pain associated with the chronic left lateral malleolus surgical wound and she's been applying topical gentamicin to treat the recent Enterococcus positive wound culture. Her wound vac was discontinued last week also. Of note. she takes citalopram which complicates treating her wound infection with oral antibiotics and is also on dialysis for end stage renal disease and has received IV vancomycin without difficulty for her previous Enterococcus wound infections. 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 04/18/18. Seen by Dr. Sifuentes. The patient reports decreased pain associated with the chronic left lateral malleolus surgical wound over the past week since we held her wound vac. Her culture grew Enterococcus and she's not currently on antibiotics for this. Of note, her wound healing is complicated considerably by her end stage renal disease and being on dialysis and the wound is a result of deep bone debridement that was performed for chronic osteomyelitis of the malleolus. 04/15/18. Seen by Dr. Sifuentes. The patient continues to report persistent pain associated with the chronic left lateral malleolus surgical wound however she does not report increased drainage and has tolerated NPWT with the SNAP wound vac without difficulty. She' s now been off of antibiotics for the past month and underwent surgical bone debridement for chronic osteomyeylitis of the malleolus in late January. 04/11/18. Seen by Dr. Sifuentes. The patient does not report any new acute issues regarding her chronic left lateral malleolus surgical wound and she's tolerating NPWT with the SNAP wound vac without difficulty. 04/08/18. Seen by Dr. Sifuentes. The patient does not report any new acute issues regarding her chronic left lateral malleolus surgical wound and she's tolerating NPWT with the SNAP wound vac without difficulty. 04/04/18. Seen by Dr. Sifuentes. The patient continues to report pain associated with the chronic left lateral malleolus surgical wound despite the fact we discontinued NPWT at her last visit. Her wound culture grew only yeast and Diptheroids. 04/01/2018. Seen by Dr. Sifuentes. The patient continues to report pain associated with the chronic left lateral malleolus surgical wound. She does not report significant drainage from the site and has tolerated negative pressure wound therapy. She is not currently on antibiotics and has no other acute complaints today. 03/28/18. Seen by Dr. Sifuentes. The patient does not report significant pain nor drainage associated chronic left lateral malleolus surgical wound since her last visit and she's tolerating NPWT with the SNAP wound vac without difficulty. 03/25/18. Seen by Dr. Sifuentes. The patient continues to report pain throughout the midfoot and dorsum of the left foot that limits her ability to walk to only a couple of minutes at a time. She does not report any changes regarding the left lateral ankle surgical wound and is tolerating negative pressure wound therapy without difficulty. She's also not currently on oral antibiotics. 03/18/18. Seen by Dr. Sifuentes. The patient reports intermittent pain associated with the left lateral ankle however shoes are report increased drainage from the lateral malleolus surgical wound since her last visit. She is also tolerating negative pressure wound therapy without difficulty. 03/11/18. Seen by Dr Sifuentes.The patient reports some intermittent pain in the left lateral ankle when bearing weight but does not report significant drainage associated with the left lateral malleolus surgical wound since her last visit. She was changed from ciprofloxacin to doxycycline based on the recent culture growing a resistant coag negative staph organism. She does not report adverse side effects, fevers, or other acute issues today. 03/04/18. Seen by Dr. Sifuentes. The patient does not report significant pain nor drainage associated chronic left lateral malleolus surgical wound since her last visit. She continues on ciprofloxacin for chronic osteomyelitis also without reported adverse side effects. 02/25/18. Seen by Dr. Sifuentes. 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 She saw Dr. John last week and will start to use a bone stimulator to help heal the pathologic fracture. She does not report significant drainage associated with the left lateral malleolus surgical wound. 02/18/18. Seen by Dr. Sifuentes. The patient reports ongoing, but decreasing, pain associated with the left lateral malleolus surgical wound and she continues on ciprofloxacin and Flagy for chronic osteomyelitis without reporting adverse side effects. She'll see her surgeon, Dr. John, this . 02/14/18. Seen by Dr. Sifuentes. The patient reports decreased pain associated with the left lateral malleolus surgical wound and staff report only a moderate amount of drainage on the ROMEL wound vac dressing. She continues on cipro and Flagyl for chronic osteomyelitis and does not report adverse side effects or feeling unwell in general. 02/11/18. Seen by Dr. Sifuentes. The patient continues to report some persistent pain associated with the chronic left lateral malleolus surgical wound since her last visit. She does not report increased drainage however and is scheduled to see Dr. John, her orthopedic surgeon, next Saturday. She continues on ciprofloxacin and Flagyl as well and her surgery was a deep bone debridement to address the chronic osteomyelitis of the malleolus. 02/07/18. Seen by Dr. Sifuentes. 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 John. She reports some persistent discomfort at the wound site and is now on ciprofloxacin and Flagyl. Culture results of the execised bone are not yet available and the patient does not report any adverse side effects from the antibiotics, fevers, nor feeling unwell. 11/27/17. Seen by Dr. Sifuentes. The patient does not report pain associated with the chronic left lateral malleolus ulcer however she does describe diffuse pain throughout the lateral aspect of the foot and heel. She states this has been present for 6 weeks however has not raised the issue at our clinic until last week. She was seen by her primary care provider who subsequently ordered an MRI that revealed a nondisplaced fracture of the calcaneus. The MRI did mention also that the chronic osteomyelitis of the lateral malleolus appears to have improved from the previous imaging. 11/06/17. Seen by Dr. Sifuentes. The patient does not report significant pain or drainage associated with the chronic left lateral malleolar nonpressure ulcers since her last visit. She stop using a dressing due to pain and feels this has resolved in the interim. She's also asked that I look at a finger on her right hand that's been slow to heal since her dog scratched her a few weeks ago. She does not report pain at the site but states it's been draining a bit. 10/23/17. Seen by Dr. Sifuentes. The patient reports some persistent and modest pain associated with chronic left lateral malleolar nonpressure ulcer since her last visit. Does not report increased drainage and has been applying topical gentamicin to treat the recurrent cognitive staph wound infection. 10/02/17. The patient reports some intermittent pain associated with chronic left lateral malleolar nonpressure ulcer since her last visit however does not report increased drainage. 09/10/17. Seen by Shon Barlow PA-C. The patient reports no increase in drainage from her left lateral malleolar ulcer. She continues to abstain from smoking. 08/20/17. Seen by Dr. Sifuentes. The patient does not report significant pain or drainage associated with the chronic left lateral malleolar nonpressure ulcers since her last visit. She applying OTC topical antibiotic as prescribed to treat a recurrent wound infection noted at her last visit. 08/06/17. Seen by Dr. Sifuentes. The patient does not report significant pain or drainage associated with the chronic left lateral malleolar nonpressure ulcers since her last visit. 07/16/17. Seen by Dr. Sifuentes. The patient does not report pain or significant drainage associated with the chronic left lateral malleolar nonpressure ulcers since her last visit. 07/09/17. Seen by Dr. Sifuentes. The patient reports some intermittent pain associated with chronic left lateral malleolar nonpressure ulcer since her last visit however does not report increased drainage. 06/27/17. Seen by Dr. Sifuentes. The patient does not report pain or significant drainage associated with the chronic left lateral malleolar ulcer since her last visit. She feels her previously reported symptoms have improved since starting on levofloxacin for the polymicrobial wound culture following her last visit. 06/20/17. Seen by Dr. Sifuentes. The patient reports some burning associated with the left lateral chronic malleoli are not pressure ulcer. Her wound culture grew stenotrophomonas , enterococcus, and a coag-negative staph. She started on levofloxacin for this to be taken around her dialysis schedule. She does not report fevers or feeling unwell. 06/13/17. Seen by Shon Barlow PA-C. The patient reports that the steri-strips that were used to reduce wound tension were painful and she removed them. Her ulcer at that time grew E.coli which she has finished her antibiotic treatment for. 05/30/17. Seen by Dr. Sifuentes. The patient reports increased pain and drainage associated with the chronic left lateral malleolar ulcer over the past few days. She continues on dialysis and is scheduled to have cataract surgery later this week. She does not report fevers or feeling unwell and is not currently on antibiotics. 04/18/17. Seen by Dr. Sifuentes. The patient does not report pain or significant drainage the chronic left lateral malleolar ulcer over the past week. 03/28/17. Seen by Dr. Sifuentes. The patient does not report significant drainage or pain associated with the chronic left lateral malleolar non-pressure ulcer since her last visit. 03/07/17. Seen by Dr. Sifuentes. The patient does not report significant drainage or pain associated with the chronic left lateral malleolar non-pressure ulcer since her last visit. 02/14/17. Seen by Dr. Sifuentes. The patient feels the drainage from the chronic left lateral malleolar non-pressure ulcer noted at the last visit has decreased. Her wound culture grew Enterococcus and Enterobacter species however she did not tolerate her ciprofloxacin due to GI upset and stopped taking it after the few couple of doses. 02/05/17. Seen by Dr. Sifuentes. The patient does not report increased pain or drainage associated with chronic left lateral malleolar nonpressure ulcers since her last visit. 01/10/17. Seen by Dr. Sifuentes. The patient reports no increase in pain or significant drainage associated with the chronic left lateral malleolar nonpressure ulcer since her last visit. 12/20/16. Seen by Dr. Sifuentes. The patient does not report drainage associated with the chronic left lateral malleolus ulcer since her last visit. 11/29/16. Seen by Dr. Sifuentes. The patient does not report significant drainage associated with the chronic left lateral malleolus ulcer since her last visit. 11/08/16. Seen by Dr. Sifuentes. The patient does not report pain or significant drainage associated with the chronic left lateral malleolus ulcer since her last visit. 10/18/16 Seen by Shon Barlow PA-C. The patient does not report any change in pain or drainage from her chronic left lateral malleolar ulcer since her last evaluation. 10/04/16. Seen by Dr. Sifuentes. The patient does not report pain or significant drainage associated with the chronic left lateral malleolus ulcer. She continues to apply gentamicin cream at each dressing change due to chronic and recurring infections at the ulcer site. 09/27/16. Seen by Dr. Sifuentes.The patient does not report significant drainage or pain associated with chronic left lateral malleolus on pressure ulcer since her last visit. She continues to apply topical gentamicin ointment for the chronic wound infection. 09/13/16. Seen by Dr. Sifuentes. The patient reports scant drainage and no pain associated with the chronic left lateral malleolar non-pressure ulcer and she's applying topical gentamicin daily to treat the recent polymicrobial wound infection as recommended. 09/04/16 Seen by Shon Barlow PA-C. The patient reports minimal drainage and she is attempting to offload the ulcer area when she sleeps using a [employer]-sa[employer] ankle protector. 08/30/16. Seen by Dr. Sifuentes. The patient reports increased pain and drainage associated with the chronic left lateral malleolr non-pressure ulcer over the past week but she does not report fevers or feeling unwell. Her wound culture from the last visit grew Enterobacter, E. coli, and a coag negative Staph and she started taking Bactrim and applying topical gentamicin yesterday. She's on a 1/2 dose of Bactrim due to her end stage renal disease. 08/23/16. Seen by Dr. Sifuentes. The patient reports some increased drainage on her dressing covering the chronic left lateral malleolar non-pressure ulcer. She does no report pain however nor fevers or feeling unwell. 08/09/16. Seen by Dr. Sifuentes. The patient does not report drainage or pain associated with the chronic left lateral malleolar ulcer. 07/26/16. Seen by Dr. Sifuentes. The patient does not report drainage or pain associated with the chronic left lateral malleolar ulcer since her last visit. 07/11/16. Seen by Dr. Sifuentes. The patient does not report drainage or pain associated with the chronic left lateral malleolar ulcer since her visit last week. 06/21/16 Seen by Shon Barlow PA-C. The patient reports no change in drainage from her left lateral malleolus ulcer. 06/14/16. Seen by Dr. Sifuentes. The patient reportedly minimal drainage associated with the chronic left lateral malleolus ulcer since her last visit. Her arterial Doppler of the left leg was remarkable. 06/07/16. Seen by Dr. Sifuentes. The patient does not report pain or drainage associated with the chronic left lateral malleolar ulcer over the past week. 05/31/16. Seen by Dr. Sifuentes. The patient does not report pain or drainage associated with chronic left lateral malleolus nonpressure ulcer over the past week. Of note, her wound culture from the last visit grew a resistant coag negative Staph. She's not currently taking antibiotics. 05/24/[address] Sifuentes. The patient does not report increased pain or drainage associated with the chronic left lateral malleolar non-pressure ulcer over the past week. 05/17/[address] Sifuentes. The patient does not report pain associated with the chronic left lateral malleolar non-pressure ulcer over the past week and there's only a scant amount of drainage on her dressing today. 05/10/[address] Sifuentes. The patient does not report pain or drainage associated with the chronic left lateral malleolar ulcer or associated underlying malleolar chronic osteomyelitis over the past week. Of note, she had another Epifix skin substitute placed last week. 05/03/[address] Sifuentes. The patient does not report pain or drainage associated with the left lateral malleolar non-pressure ulcer over the past week and she's tolerating HBOT, which is treating associated underlying chronic osteomyelitis, without reporting any issues. 04/26/16 Seen by Shon Barlow PA-C. The patient reports no noted change in her chronic left lateral malleolar ulcer since her last evaluation. 04/19/[address] Sifuentes. The patient does not report pain or drainage associated with the chronic left lateral malleolar non-pressure ulcer nor underlying chronic osteomyelitis. She continues with HBOT but has completed an 8 week course of IV vancomycin. 04/12/[address] Sifuentes. The patient does not report drainage or pain associated with her chronic left lateral malleolar ulcer and underlying chronic osteomyelitis. She' s received 3 placements of Epifix recently and continues with HBOT in addition to an extended course of IV vancomycin. Her wound culture from 04/05/16 showed no organisms and had no growth. 04/05/[address] Sifuentes. The patient does not report pain or drainage from her chronic left lateral malleolar non-pressure ulcer and she continues on IV vancomycin for chronic osteomyelitis of the underlying malleolus. 03/29/[address] Sifuentes. The patient does not report pain or drainage associated with her chronic left lateral malleolar non-pressure ulcer and she continues on IV vancomycin and hyperbaric therapy for underlying chronic osteomyelitis of the malleolus. 03/22/[address] iSfuentes. The patient does not report pain or drainage associated with the chronic left lateral malleolar non-pressure ulcer. 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 She also states she's no longer smoking. 03/06/16 Seen by Shon Barlow PA-C. The patient is changing her dressing daily, as instructed but now reports decreased drainage from her ulcer. 03/01/[address] Sifuentes. The patient does not report pain or significant drainage associated with her chronic left lateral malleolar ulcer and she continues on IV vancomycin and hyperbaric oxygen therapy for underlying chronic osteomyelitis of the lateral malleolus. 02/14/16 Seen by Shon Barlow PA-C. The patient feels her left malleolar ulcer with underlying chronic osteomyelitis may be larger and has been draining more since her last evaluation. She continues on doxycycline and her ulcer culture grew a staph Spp. and E Faecalis both of which were highly resistant. She reports that she is only smoking a few cigarettes per day. Her dialysis continues at 2 times weekly. Her COPD is stable on current medications with no recent exacerbations. 02/08/[address] Sifuentes. The patient does not report pain associated with the chronic left lateral malleolar non-pressure ulcer however the staff report brown drainage on her dressing today. She continues on doxycycline for a recent polymicrobial resistant Staph culture and her recent bone scan on 01/26/16 show's persistent left lateral malleolar osteomyelitis while reporting interval improvement from her previous scan on 09/29/15. She does not report fevers or feeling unwell and she also reports that she's significantly reduced her smoking over the past week. 01/26/[address] Sifuentes. The patient does not report pain associated with the chronic left lateral malleolar non-pressure ulcer nor does she report any problems with the wound vac. She continues on doxycycline without reporting adverse side effects and her bone scan shows persistence of osteomyelitis beneath the ulcer with interval improvement from that of 09/29/16. 01/19/[address] Sifuentes. The patient does not report pain associated with the chronic left lateral malleolar non-pressure ulcer nor any problems with the wound vac. She continues on doxycycline also for a resistant coag neg Staph culture and does not report adverse side effects. 01/12/[address] Sifuentes. The patient does not report pain or significant drainage associated with the chronic left lateral malleolar ulcer. She also is now on doxycycline for a resistant coag neg Staph culture from 12/28/15 and does not report adverse effects. 01/04/[address] Sifuentes. The patient reports some increased pain just proximal to the chronic left lateral malleolar non-pressure ulcer. She's currently using only topical gentamicin to treat an intermediately resistant coag negative Staph culture from the ulcer. 12/28/[address] Sifuentes. The patient does not report drainage and reports only minimal pain associated with the chronic left lateral malleolar ulcer. Her wound culture grew only resistant Staph epi. 12/21/[address] Sifuentes. The patient does not report pain or drainage associated with the chronic left lateral malleolar ulcer and she's continues off of antibiotics. 12/07/2015 Seen by Shon Barlow PA-C. The patient's moxifloxacin has now finished and she does not report any change in left ankle pain or drainage. 11/30/2015 Seen by Shon Balrow PA-C. The patient's moxifloxacin prescription continues for 1 more week. She is currently not undergoing adjunctive hyperbaric oxygen treatments. She reports no change in ulcer pain. 11/25/[address] Sifuentes. The patient does not report any new issues regarding her chronic left lateral malleolar non-pressure ulcer however the staff report some moderate maceration. 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 11/15/15 Seen by Shon Barlow PA-C. The patient will complete her last Vancomycin infusion tomorrow and will then discontinue this antibiotic and discontinue 3x weekly dialysis and resume twice weekly dialysis. Her ulcer, overlying chronic osteomyelitis has been draining minimally and has not been reportedly painful since her last evaluation. She is now weaned off of citalopram (which had interactions with Moxifloxacin, which we originally wanted to prescribe) and she reports no depression symptoms. 11/08/15 Seen by Shon Barlow PA-C. The patient does not report increased pain or drainage from her ulcer with underlying osteomyelitis. She continues on Vancomycin. 11/03/[address] Sifuentes. The patient does not report pain and only scant drainage from the chronic left lateral malleolar ulcer and underlying chronic osteomyelitis. She's on day 24 of IV vancomycin for the Enterococcus positive wound culture and HBOT for chronic osteomyelitis. 10/27/[address] Sifuentes. The patient reports minimal discomfort and scant drainage from the left lateral malleolar ulcer and underlying chronic osteomyelitis. She continues on IV vancomycin for this problem as well as HBOT without reporting problems. 10/19/15 Seen by Shon Barlow PA-C. The patient reports a stable appearance of her ulcer. She is going to begin 3x weekly dialysis due to the administration of Vancomycin. When she completes her Vancomycin course she will resume twice weekly dialysis. 10/12/[address] Sifuentes. The patient states she's had 5 episodes of diarrhea this morning and complains of some mild left sided abdominal pain. She's been started on IV vancomycin for the left lateral malleolar ulcer cultured for Enterococcus and is under the care of her web designer developer, Dr. Lorenzana, regarding dosing around her dialysis. She does not report drainage nor significant discomfort associated with ulcer nor underlying chronic osteomyelitis of the malleolus and continues with HBOT as adjuvant therapy without reporting problems. 10/06/[address] Sifuentes. The patient continues to report some discomfort regarding her left lateral malleolar ulcer and underlying chronic osteomyelitis. She's seen Dr. Silva, her PCP, whose started a taper of her Celexa over the next 6 weeks due to a potentially serious interaction with fluorquinolone antibiotics which could eventually be useful in treating the Enterococcus faecalis positive wound culture from 09/28/15. She does not report fever or other acute issues currently and has been off of antibiotics for the past week due to the limited options based on sensitivities. She's continued HBOT over this period while we' ve attempted to find an appropriate antibiotic solution. Of note, her bone scan from 09/29/15 confirms persistence of chronic osteomyelitis also. 09/14/15 Seen by Shon Barlow PA-C. The patient reports no difficulty with her doxycycline or HBOT treatments. Her ankle ulcer continues to drain and she has not observed much change. 09/07/[address] Sifuentes. The patient does not report significant pain or drainage associated with her left lateral malleolar ulcer and she continues on doxycycline for associated chronic osteomyelitis without reporting adverse side effects. She's also tolerating HBOT without reporting any problems. 08/24/[address] Sifuentes. The patient reports increased pain and redness in the periwound area of the left lateral malleolar ulcer that overlies the site of chronic osteomyelitis. She does not report fever, chills, sweats, or increased drainage. Her wound culture at the last visit was unremarkable despite being off of antibiotics. She's been approved for HBOT and currently does not report acute URI symptoms but states she has some chronic sinus congestion. Of note, her CXR was consistent with COPD. 08/17/[address] Sifuentes. The patient states her left lateral malleous is more tender than last week with some radiation of pain to the mid foot. She does not report increased 08/04/[address] Sifuentes. The patient attend the ER following our last visit and was sent to [facility] due to acute on chronic renal failure. She'd apparently become dehydrated due to nausea and vomiting and was dx with a small bowel obstruction. Of note, I'd contacted her to discontinue Bactrim, which she'd been on for about a month for left lateral malleolar osteomyelitis, due to her Cr increasing. This has since returned to it's baseline and she's currently not on antibiotics. She does not report increased pain, swelling or drainage associated with the overlying ulcer. She's also to complete the 2nd phase of her bone scan checking for persistence of osteomyelitis later today. 07/28/[address] Sifuentes. The patient does not report drainage or pain associated with the left lateral malleolar ulcer. She continues on an extended course of Bactrim for possible osteomyelitis which is concerning based on her history of chronic kidney disease requiring dialysis. She notes she still produces adequate urine but has not had her renal function checked since 07/05/15 when her Cr was 2.7. 07/20/[address] Sifuentes. The patient does not report any new issues such as pain or increased drainage from the left lateral malleolar ulcer. She continues on Bactrim for possible chronic osteomyelitis of the lateral malleolus. 07/13/[address] Sifuentes. The patient's new to our clinic and has been referred by Dr. Silva for a non-healing surgical wound following excision of a skin cancer ( type unconfirmed) at the left lateral malleolus. This was reportedly performed about 2 months ago and she's been on an extended course of Bactrim for the past month with some resolution in drainage and surrounding erythema. She has an MRI and bone scan of the site from the end of April that both raise suspicion for osteomyelities however. Otherwise her medical history is complicated by chronic renal failure requiring dialysis and a long history of smoking. She does not have a history of diabetes nor does she report rest pain, claudication, fever, sweats, or pain at the ulcer site. 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, Substance Abuse - none Past Medical History This information was obtained from the patient Patient has a medical history of: Depression Carpal tunnel Chronic renal Stage V (Cr 2.7 on 07/05/15; dialysis M, F) Unilateral nephrectomy Allergic rhinitis Hypertension Insomnia Lumbago Osteoporosis Peptic Ulcer Small bowel obstruction (recurrent) Chronic osteomyelitis (left lateral malleolus; dx on MRI and bone scan April 2015 ; reconfirmed on repeat bone scan 07/28/15; persistent but improved on 01/26/16 bone scan) COPD Chronic ulcer (left lateral malleolus) Surgical History This information was obtained from the patient Patient has a surgical history of: tonsilectomy (1948) carpal tunnel (1979) hysterectomy (1980) tumor removal abdomen benign (1995) hernia repair (1999) Mohs left ankle (2014) right kidney removed (cancer) (8 years ago) dental implants (2011) lung surgery to remove benign mass (2010) Bone graft in mouth Cataract surgery (left eye) Surgical debridement of ulcer/bone of left lateral ankle FIstula for dialysis (April 29) Complaints and Symptoms This information was obtained from the patient Patient complains of: General Notes: I have reviewed and concur with the Review of Systems and Past Family Social History documents completed by the clinician, I have reviewed and concur with the Wound Assessment document completed by the clinician Ear/Nose/Mouth/Throat: Hearing Loss / Aid Integumentary (Hair/Skin/Nails): Open Sore Prior Wound History: Drainage, Erythema, Pain Patient denies complaints or symptoms related to: Cardiovascular (Central/Peripheral): Intermittent Claudication, Lower extremity (leg) resting pain, Lower extremity (leg) swelling Constitutional Symptoms (General Health): Chills, Fever Gastrointestinal (GI): Nausea / Vomiting, Stomach/abdominal pain Hematologic/Lymphatic: Bleeding / Clotting Disorders, Bleeding Tendency Musculoskeletal: Deformities, Joint Swelling Neurological: Abnormal Gait, Loss of Protective Sensation Prior Wound History: Bleeding, Malodor Psychiatric: Memory Loss Respiratory: Oxygen Use, Shortness of Breath OBJECTIVE Constitutional BP low; Afebrile; Alert and in no distress. Well developed. Alert. Clean appearing.. Height/Length: 60 in (152.4 cm), Weight: 97 lbs (44.09 kgs), BMI: 18.9, Temperature: 97.7 ? F (36.5 ?C), Pulse: 57 bpm, Respiratory Rate: 18 breaths/min, Blood Pressure: 96 /51 mmHg, Pulse Oximetry: 98 %. Cardiovascular: Affected extremity exhibits no peripheral edema or cyanosis, is warm, and is well perfused. Capillary refill is less than 2 seconds. Integumentary (Hair, Skin) No periwound erythema, warmth, or significant drainage. No periwound rashes appreciated or noted otherwise.. Refer to appropriate clinician wound documentation for this visit; left lateral malleolus wound extends to subcut with base partially covered with pink granulation, remainder fibrin and slough. Maceration present in the periwound area. Wound #2 Left, Lateral Ankle is an acute Full Thickness Surgical Wound and has received a status of Not Healed. Subsequent wound encounter measurements are 0.1cm length x 0.1cm width x 0.1cm depth, with an area of 0.01 sq cm and a volume of 0.001 cubic cm. No tunneling has been noted. No sinus tract has been noted. No undermining has been noted. There is a small amount of serous drainage noted which has no odor. The patient reports a wound pain of level 4/10. The wound margin is attached. Wound bed has No epithelialization, No eschar, No slough, No granulation. The periwound skin texture is normal. The periwound skin color is normal. The periwound skin exhibited: Maceration. The periwound skin did not exhibit: Dry/Scaly, Moist. The temperature of the periwound skin is WNL. Periwound skin does not exhibit signs or symptoms of infection. Local Pulse is Palpable. Neurological: Cranial nerves grossly intact with symmetric function normal by informal observation.. ASSESSMENT Active Problems ICD-10 (Encounter Diagnosis) L97.322 - Non-pressure chronic ulcer of left ankle with fat layer exposed (Encounter Diagnosis) T81.31XD - Disruption of external operation (surgical) wound, not elsewhere classified, subsequent encounter PROCEDURES Wound #2 Wound #2 (Surgical Wound) is located on the left, lateral ankle. A skin/ subcutaneous tissue level surgical debridement with a total area debrided of 0.01 sq cm was performed by Isidoro Sifuentes MD. Subcutaneous was removed along with devitalized tissue: slough and maceration. The following instrument(s) were used: curette and forceps. Pain control was achieved using EMLA lidocaine/prilocaine 2.5%/2.5%. A time out was conducted prior to the start of the procedure. A minimal amount of bleeding was controlled with other. The procedure was tolerated well with a pain level of 0 throughout and a pain level of 0 following the procedure. Post Debridement Measurements: 0.1cm length x 0.1cm width x 0.2cm depth; with an area of 0.01 sq cm and a volume of 0.002 cubic cm; Additional Information Muscle fascia or bone removed and sent to pathology?: No PLAN Wound Orders: Wound #2 Left, Lateral Ankle Anesthetic Topical Xylocaine to wound bed. - EMLA cream. Cleanser Cleanse Wound: - Normal Saline and gauze. May shower with SNAP dressing - Use Shower Boot Dressings Primary dressing: - border foam. Change Dressing: - Every 3rd day Follow-Up Appointments Return Appointment: - - Next appointment July 01@8:30 am I've reviewed the clinician's documentation and agree with the evaluation and plan as written. In addition the patient's wound demonstrates evidence of non-viable devitalized tissue which will continue to benefit from sharp debridement to help promote granulation and expedite healing. Also, I've discontinued NPWT today due to pain at the site of the wound and we' ll monitor for signs of recurrent infection at her next visit. Electronic Signature(s) Signed By: Date: Isidoro Sifuentes MD 06/23/2018 09:40:37 Entered By: Isidoro Sifuentes on 06/23/2018 09:00:36
== END ==
PROVIDERS: PCP Family Medicine; Visit Provider Internal Medicine
DX: L97.322 Non-pressure chronic ulcer of left ankle with fat layer exposed (principal); T81.31XD Disruption of external operation (surgical) wound, not elsewhere classified, subsequent encounter; M25.572 Pain in left ankle and joints of left foot
CPT/HCPCS: 11042

== ENCOUNTER → 2018-07-01 08:26 | Outpatient (CLI) | payer MEDICARE, SELFPAY ==
--- NOTE | 2018-07-01 | OV.WND_ITS ---
Progress Note Details Patient Name: Kristine Damon Patient Number: [id number] PatientPatientDate: 07/01/2018 Clinician: Erlinda Malave Clinician Cosigner: Nicolette Thompson Physician / Back Tender Fourdrinier: Isidoro Sifuentes SUBJECTIVE Chief Complaint This information was obtained from the patient Wound to left lateral ankle. Allergies penicillin, prednisone, cephalexin, codeine, acetaminophen, hydrocodone, ketorolac HPI This information was obtained from the patient 07/01/18. Seen by Dr. Sifuentes. The patient does not report increased drainage associated with the chronic left lateral malleolus surgical wound since her last visit however she does report some generalized foot swelling. 06/20/18. Seen by Dr. Sifuentes. The patient does not report increased drainage associated with the chronic left lateral malleolus surgical wound since her last visit however she does report some pain at the wound site. 06/17/18. Seen by Dr. Sifuentes. The patient returns for review of the chronic left lateral malleolus surgical wound following placement of a Grafix biologic skin substitute last Saturday. She does not report pain at the wound site nor increased drainage. 06/13/18. Seen by Dr. Sifuentes. The patient does not report increased pain or drainage associated with the chronic left lateral malleolus surgical wound since her last visit and we're considering placing a Grafix biologic skin substitute today to help promote granulation of this very refractory surgical wound. 06/10/18. Seen by Dr. Sifuentes. The patient does not report increased pain or drainage associated with the chronic left lateral malleolus surgical wound since her last visit. 06/06/18. Seen by Dr. Sifuentes. The patient does not report increased pain or drainage associated with the chronic left lateral malleolus surgical wound since her last visit. 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 She's also no longer on antibiotics and her wound has been showing modest progress over the past 3 weeks since changing to a SNAP wound vac from a ROMEL. 06/03/18. Seen by Dr. Sifuentes. The patient does not report increased pain or drainage associated with the chronic left lateral malleolus surgical wound since her last visit and she's tolerating NPWT with the ROMEL wound vac without difficulty. 05/27/18. Seen by Dr. Sifuentes. The patient does not report increased pain or drainage associated with the chronic left lateral malleolus surgical wound since her last visit and she's tolerating NPWT without difficulty. 05/23/18. Seen by Dr. Sifuentes. The patient does not report increased pain or drainage associated with the chronic left lateral malleolus surgical wound since her last visit and she's tolerating NPWT without difficulty. 05/20/18. Seen by Dr. Sifuentes. The patient does not report increased pain or drainage associated with the chronic left lateral malleolus surgical wound since her last visit and she's tolerating NPWT without difficulty. She continues on IV vancomycin during dialysis for the recent and reccurrent Enterococcus positive wound culture also however notes 2 doses were accidentally missed during dialysis last week. Her regimen completes today and her MRI of the ankle was inconclusive regarding the presence of osteomyelitis. 05/16/18. Seen by Dr. Sifuentes. The patient does not report increased pain or drainage associated with the chronic left lateral malleolus surgical wound since her last visit and she's tolerating NPWT without difficulty. She continues on IV vancomycin during dialysis for the recent Enterococcus positive wound culture also. Her MRI which was performed to re-evaluate the calcaneal stress fracture reports a cortical irregularity along the lateral malleolus that may represent osteomyelitis but must be considered in the context of her surgical debridement also. 05/13/18. Seen by Dr. Sifuentes. The patient reports continued pain in the left lateral malleolus posterior to the surgical wound and she has an MRI scheduled for this morning to evaluate the source of the pain. She also continues on IV vancomycin that's treating the recurrent Enterococcus positive culture and being infused during dialysis. She does not report fevers or feeling unwell otherwise and is tolerating negative pressure wound therapy without difficulty. 05/09/18. Seen by Shon Barlow PA-C. The patient continues on Vancomycin for her left malleolar wound infection which demonstrates stable drainage this week. 05/06/18. Seen by Shon Barlow PA-C. The patient reports stable drainage from her left malleolar wound and continues on Vancomycin to treat the Enterococcus infection of this wound. 05/02/18. Seen by Dr. Sifuentes. The patient reports improvement in the left foot pain and does not report increased drainage or other acute issues regarding the left lateral malleolus surgical wound that's being treated with negative pressure wound therapy. She's also continues on IV vancomycin during dialysis that's treating the recent Enterococcus positive wound culture. 04/29/18. Seen by Dr. Sifuentes. The patient reports improvement in the left foot pain over the past week and does not report increased drainage or other acute issues regarding the left lateral malleolus surgical wound that's being treated with negative pressure wound therapy. She's also now had 2 doses of IV vancomycin during dialysis this week that's treating the recent Enterococcus positive wound culture. 04/25/18. Seen by Dr. Sifuentes. The patient reports improvement in terms of pain associated with the chronic left lateral malleolus surgical wound since starting on IV vancomycin for the recently Enterococcus positive wound culture. She does not report adverse side effects and is receiving her antibiotics during dialysis. 04/22/18. Seen by Dr. Sifuentes. The patient reports some continued pain associated with the chronic left lateral malleolus surgical wound and she's been applying topical gentamicin to treat the recent Enterococcus positive wound culture. Her wound vac was discontinued last week also. Of note. she takes citalopram which complicates treating her wound infection with oral antibiotics and is also on dialysis for end stage renal disease and has received IV vancomycin without difficulty for her previous Enterococcus wound infections. 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 04/18/18. Seen by Dr. Sifuentes. The patient reports decreased pain associated with the chronic left lateral malleolus surgical wound over the past week since we held her wound vac. Her culture grew Enterococcus and she's not currently on antibiotics for this. Of note, her wound healing is complicated considerably by her end stage renal disease and being on dialysis and the wound is a result of deep bone debridement that was performed for chronic osteomyelitis of the malleolus. 04/15/18. Seen by Dr. Sifuentes. The patient continues to report persistent pain associated with the chronic left lateral malleolus surgical wound however she does not report increased drainage and has tolerated NPWT with the SNAP wound vac without difficulty. She' s now been off of antibiotics for the past month and underwent surgical bone debridement for chronic osteomyeylitis of the malleolus in late January. 04/11/18. Seen by Dr. Sifuentes. The patient does not report any new acute issues regarding her chronic left lateral malleolus surgical wound and she's tolerating NPWT with the SNAP wound vac without difficulty. 04/08/18. Seen by Dr. Sifuentes. The patient does not report any new acute issues regarding her chronic left lateral malleolus surgical wound and she's tolerating NPWT with the SNAP wound vac without difficulty. 04/04/18. Seen by Dr. Sifuentes. The patient continues to report pain associated with the chronic left lateral malleolus surgical wound despite the fact we discontinued NPWT at her last visit. Her wound culture grew only yeast and Diptheroids. 04/01/2018. Seen by Dr. Sifuentes. The patient continues to report pain associated with the chronic left lateral malleolus surgical wound. She does not report significant drainage from the site and has tolerated negative pressure wound therapy. She is not currently on antibiotics and has no other acute complaints today. 03/28/18. Seen by Dr. Sifuentes. The patient does not report significant pain nor drainage associated chronic left lateral malleolus surgical wound since her last visit and she's tolerating NPWT with the SNAP wound vac without difficulty. 03/25/18. Seen by Dr. Sifuentes. The patient continues to report pain throughout the midfoot and dorsum of the left foot that limits her ability to walk to only a couple of minutes at a time. She does not report any changes regarding the left lateral ankle surgical wound and is tolerating negative pressure wound therapy without difficulty. She's also not currently on oral antibiotics. 03/18/18. Seen by Dr. Sifuentes. The patient reports intermittent pain associated with the left lateral ankle however shoes are report increased drainage from the lateral malleolus surgical wound since her last visit. She is also tolerating negative pressure wound therapy without difficulty. 03/11/18. Seen by Dr Sifuentes.The patient reports some intermittent pain in the left lateral ankle when bearing weight but does not report significant drainage associated with the left lateral malleolus surgical wound since her last visit. She was changed from ciprofloxacin to doxycycline based on the recent culture growing a resistant coag negative staph organism. She does not report adverse side effects, fevers, or other acute issues today. 03/04/18. Seen by Dr. Sifuentes. The patient does not report significant pain nor drainage associated chronic left lateral malleolus surgical wound since her last visit. She continues on ciprofloxacin for chronic osteomyelitis also without reported adverse side effects. 02/25/18. Seen by Dr. Sifuentes. 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 She saw Dr. John last week and will start to use a bone stimulator to help heal the pathologic fracture. She does not report significant drainage associated with the left lateral malleolus surgical wound. 02/18/18. Seen by Dr. Sifuentes. The patient reports ongoing, but decreasing, pain associated with the left lateral malleolus surgical wound and she continues on ciprofloxacin and Flagy for chronic osteomyelitis without reporting adverse side effects. She'll see her surgeon, Dr. John, this . 02/14/18. Seen by Dr. Sifuentes. The patient reports decreased pain associated with the left lateral malleolus surgical wound and staff report only a moderate amount of drainage on the ROMEL wound vac dressing. She continues on cipro and Flagyl for chronic osteomyelitis and does not report adverse side effects or feeling unwell in general. 02/11/18. Seen by Dr. Sifuentes. The patient continues to report some persistent pain associated with the chronic left lateral malleolus surgical wound since her last visit. She does not report increased drainage however and is scheduled to see Dr. John, her orthopedic surgeon, next Saturday. She continues on ciprofloxacin and Flagyl as well and her surgery was a deep bone debridement to address the chronic osteomyelitis of the malleolus. 02/07/18. Seen by Dr. Sifuentes. 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 John. She reports some persistent discomfort at the wound site and is now on ciprofloxacin and Flagyl. Culture results of the execised bone are not yet available and the patient does not report any adverse side effects from the antibiotics, fevers, nor feeling unwell. 11/27/17. Seen by Dr. Sifuentes. The patient does not report pain associated with the chronic left lateral malleolus ulcer however she does describe diffuse pain throughout the lateral aspect of the foot and heel. She states this has been present for 6 weeks however has not raised the issue at our clinic until last week. She was seen by her primary care provider who subsequently ordered an MRI that revealed a nondisplaced fracture of the calcaneus. The MRI did mention also that the chronic osteomyelitis of the lateral malleolus appears to have improved from the previous imaging. 11/06/17. Seen by Dr. Sifuentes. The patient does not report significant pain or drainage associated with the chronic left lateral malleolar nonpressure ulcers since her last visit. She stop using a dressing due to pain and feels this has resolved in the interim. She's also asked that I look at a finger on her right hand that's been slow to heal since her dog scratched her a few weeks ago. She does not report pain at the site but states it's been draining a bit. 10/23/17. Seen by Dr. Sifuentes. The patient reports some persistent and modest pain associated with chronic left lateral malleolar nonpressure ulcer since her last visit. Does not report increased drainage and has been applying topical gentamicin to treat the recurrent cognitive staph wound infection. 10/02/17. The patient reports some intermittent pain associated with chronic left lateral malleolar nonpressure ulcer since her last visit however does not report increased drainage. 09/10/17. Seen by Shon Barlow PA-C. The patient reports no increase in drainage from her left lateral malleolar ulcer. She continues to abstain from smoking. 08/20/17. Seen by Dr. Sifuentes. The patient does not report significant pain or drainage associated with the chronic left lateral malleolar nonpressure ulcers since her last visit. She applying OTC topical antibiotic as prescribed to treat a recurrent wound infection noted at her last visit. 08/06/17. Seen by Dr. Sifuentes. The patient does not report significant pain or drainage associated with the chronic left lateral malleolar nonpressure ulcers since her last visit. 07/16/17. Seen by Dr. Sifuentes. The patient does not report pain or significant drainage associated with the chronic left lateral malleolar nonpressure ulcers since her last visit. 07/09/17. Seen by Dr. Sifuentes. The patient reports some intermittent pain associated with chronic left lateral malleolar nonpressure ulcer since her last visit however does not report increased drainage. 06/27/17. Seen by Dr. Sifuentes. The patient does not report pain or significant drainage associated with the chronic left lateral malleolar ulcer since her last visit. She feels her previously reported symptoms have improved since starting on levofloxacin for the polymicrobial wound culture following her last visit. 06/20/17. Seen by Dr. Sifuentes. The patient reports some burning associated with the left lateral chronic malleoli are not pressure ulcer. Her wound culture grew stenotrophomonas , enterococcus, and a coag-negative staph. She started on levofloxacin for this to be taken around her dialysis schedule. She does not report fevers or feeling unwell. 06/13/17. Seen by Shon Barlow PA-C. The patient reports that the steri-strips that were used to reduce wound tension were painful and she removed them. Her ulcer at that time grew E.coli which she has finished her antibiotic treatment for. 05/30/17. Seen by Dr. Sifuentes. The patient reports increased pain and drainage associated with the chronic left lateral malleolar ulcer over the past few days. She continues on dialysis and is scheduled to have cataract surgery later this week. She does not report fevers or feeling unwell and is not currently on antibiotics. 04/18/17. Seen by Dr. Sifuentes. The patient does not report pain or significant drainage the chronic left lateral malleolar ulcer over the past week. 03/28/17. Seen by Dr. Sifuentes. The patient does not report significant drainage or pain associated with the chronic left lateral malleolar non-pressure ulcer since her last visit. 03/07/17. Seen by Dr. Sifuentes. The patient does not report significant drainage or pain associated with the chronic left lateral malleolar non-pressure ulcer since her last visit. 02/14/17. Seen by Dr. Sifuentes. The patient feels the drainage from the chronic left lateral malleolar non-pressure ulcer noted at the last visit has decreased. Her wound culture grew Enterococcus and Enterobacter species however she did not tolerate her ciprofloxacin due to GI upset and stopped taking it after the few couple of doses. 02/05/17. Seen by Dr. Sifuentes. The patient does not report increased pain or drainage associated with chronic left lateral malleolar nonpressure ulcers since her last visit. 01/10/17. Seen by Dr. Sifuentes. The patient reports no increase in pain or significant drainage associated with the chronic left lateral malleolar nonpressure ulcer since her last visit. 12/20/16. Seen by Dr. Sifuentes. The patient does not report drainage associated with the chronic left lateral malleolus ulcer since her last visit. 11/29/16. Seen by Dr. Sifuentes. The patient does not report significant drainage associated with the chronic left lateral malleolus ulcer since her last visit. 11/08/16. Seen by Dr. Sifuentes. The patient does not report pain or significant drainage associated with the chronic left lateral malleolus ulcer since her last visit. 10/18/16 Seen by Shon Barlow PA-C. The patient does not report any change in pain or drainage from her chronic left lateral malleolar ulcer since her last evaluation. 10/04/16. Seen by Dr. Sifuentes. The patient does not report pain or significant drainage associated with the chronic left lateral malleolus ulcer. She continues to apply gentamicin cream at each dressing change due to chronic and recurring infections at the ulcer site. 09/27/16. Seen by Dr. Sifuentes.The patient does not report significant drainage or pain associated with chronic left lateral malleolus on pressure ulcer since her last visit. She continues to apply topical gentamicin ointment for the chronic wound infection. 09/13/16. Seen by Dr. Sifuentes. The patient reports scant drainage and no pain associated with the chronic left lateral malleolar non-pressure ulcer and she's applying topical gentamicin daily to treat the recent polymicrobial wound infection as recommended. 09/04/16 Seen by Shon Barlow PA-C. The patient reports minimal drainage and she is attempting to offload the ulcer area when she sleeps using a Mobeetie-saver ankle protector. 08/30/16. Seen by Dr. Sifuentes. The patient reports increased pain and drainage associated with the chronic left lateral malleolr non-pressure ulcer over the past week but she does not report fevers or feeling unwell. Her wound culture from the last visit grew Enterobacter, E. coli, and a coag negative Staph and she started taking Bactrim and applying topical gentamicin yesterday. She's on a 1/2 dose of Bactrim due to her end stage renal disease. 08/23/16. Seen by Dr. Sifuentes. The patient reports some increased drainage on her dressing covering the chronic left lateral malleolar non-pressure ulcer. She does no report pain however nor fevers or feeling unwell. 08/09/16. Seen by Dr. Sifuentes. The patient does not report drainage or pain associated with the chronic left lateral malleolar ulcer. 07/26/16. Seen by Dr. Sifuentes. The patient does not report drainage or pain associated with the chronic left lateral malleolar ulcer since her last visit. 07/11/16. Seen by Dr. Sifuentes. The patient does not report drainage or pain associated with the chronic left lateral malleolar ulcer since her visit last week. 06/21/16 Seen by Shon Barlow PA-C. The patient reports no change in drainage from her left lateral malleolus ulcer. 06/14/16. Seen by Dr. Sifuentes. The patient reportedly minimal drainage associated with the chronic left lateral malleolus ulcer since her last visit. Her arterial Doppler of the left leg was remarkable. 06/07/16. Seen by Dr. Sifuentes. The patient does not report pain or drainage associated with the chronic left lateral malleolar ulcer over the past week. 05/31/16. Seen by Dr. Sifuentes. The patient does not report pain or drainage associated with chronic left lateral malleolus nonpressure ulcer over the past week. Of note, her wound culture from the last visit grew a resistant coag negative Staph. She's not currently taking antibiotics. 05/24/[address] Sifuentes. The patient does not report increased pain or drainage associated with the chronic left lateral malleolar non-pressure ulcer over the past week. 05/17/[address] Sifuentes. The patient does not report pain associated with the chronic left lateral malleolar non-pressure ulcer over the past week and there's only a scant amount of drainage on her dressing today. 05/10/[address] Sifuentes. The patient does not report pain or drainage associated with the chronic left lateral malleolar ulcer or associated underlying malleolar chronic osteomyelitis over the past week. Of note, she had another Epifix skin substitute placed last week. 05/03/[address] Sifuentes. The patient does not report pain or drainage associated with the left lateral malleolar non-pressure ulcer over the past week and she's tolerating HBOT, which is treating associated underlying chronic osteomyelitis, without reporting any issues. 04/26/16 Seen by Shon Barlow PA-C. The patient reports no noted change in her chronic left lateral malleolar ulcer since her last evaluation. 04/19/[address] Sifuentes. The patient does not report pain or drainage associated with the chronic left lateral malleolar non-pressure ulcer nor underlying chronic osteomyelitis. She continues with HBOT but has completed an 8 week course of IV vancomycin. 04/12/[address] Sifuentes. The patient does not report drainage or pain associated with her chronic left lateral malleolar ulcer and underlying chronic osteomyelitis. She' s received 3 placements of Epifix recently and continues with HBOT in addition to an extended course of IV vancomycin. Her wound culture from 04/05/16 showed no organisms and had no growth. 04/05/[address] Sifuentes. The patient does not report pain or drainage from her chronic left lateral malleolar non-pressure ulcer and she continues on IV vancomycin for chronic osteomyelitis of the underlying malleolus. 03/29/[address] Sifuentes. The patient does not report pain or drainage associated with her chronic left lateral malleolar non-pressure ulcer and she continues on IV vancomycin and hyperbaric therapy for underlying chronic osteomyelitis of the malleolus. 03/22/[address] Sifuentes. The patient does not report pain or drainage associated with the chronic left lateral malleolar non-pressure ulcer. 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 She also states she's no longer smoking. 03/06/16 Seen by Shon Barlow PA-C. The patient is changing her dressing daily, as instructed but now reports decreased drainage from her ulcer. 03/01/[address] Sifuentes. The patient does not report pain or significant drainage associated with her chronic left lateral malleolar ulcer and she continues on IV vancomycin and hyperbaric oxygen therapy for underlying chronic osteomyelitis of the lateral malleolus. 02/14/16 Seen by Shon Barlow PA-C. The patient feels her left malleolar ulcer with underlying chronic osteomyelitis may be larger and has been draining more since her last evaluation. She continues on doxycycline and her ulcer culture grew a staph Spp. and E Faecalis both of which were highly resistant. She reports that she is only smoking a few cigarettes per day. Her dialysis continues at 2 times weekly. Her COPD is stable on current medications with no recent exacerbations. 02/08/[address] Sifuentes. The patient does not report pain associated with the chronic left lateral malleolar non-pressure ulcer however the staff report brown drainage on her dressing today. She continues on doxycycline for a recent polymicrobial resistant Staph culture and her recent bone scan on 01/26/16 show's persistent left lateral malleolar osteomyelitis while reporting interval improvement from her previous scan on 09/29/15. She does not report fevers or feeling unwell and she also reports that she's significantly reduced her smoking over the past week. 01/26/[address] Sifuentes. The patient does not report pain associated with the chronic left lateral malleolar non-pressure ulcer nor does she report any problems with the wound vac. She continues on doxycycline without reporting adverse side effects and her bone scan shows persistence of osteomyelitis beneath the ulcer with interval improvement from that of 09/29/16. 01/19/[address] Sifuentes. The patient does not report pain associated with the chronic left lateral malleolar non-pressure ulcer nor any problems with the wound vac. She continues on doxycycline also for a resistant coag neg Staph culture and does not report adverse side effects. 01/12/[address] Sifuentes. The patient does not report pain or significant drainage associated with the chronic left lateral malleolar ulcer. She also is now on doxycycline for a resistant coag neg Staph culture from 12/28/15 and does not report adverse effects. 01/04/[address] Sifuentes. The patient reports some increased pain just proximal to the chronic left lateral malleolar non-pressure ulcer. She's currently using only topical gentamicin to treat an intermediately resistant coag negative Staph culture from the ulcer. 12/28/[address] Sifuentes. The patient does not report drainage and reports only minimal pain associated with the chronic left lateral malleolar ulcer. Her wound culture grew only resistant Staph epi. 12/21/[address] Sifuentes. The patient does not report pain or drainage associated with the chronic left lateral malleolar ulcer and she's continues off of antibiotics. 12/07/2015 Seen by Shon Barlow PA-C. The patient's moxifloxacin has now finished and she does not report any change in left ankle pain or drainage. 11/30/2015 Seen by Shon Barlow PA-C. The patient's moxifloxacin prescription continues for 1 more week. She is currently not undergoing adjunctive hyperbaric oxygen treatments. She reports no change in ulcer pain. 11/25/[address] Sifuentes. The patient does not report any new issues regarding her chronic left lateral malleolar non-pressure ulcer however the staff report some moderate maceration. 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 11/15/15 Seen by Shon Barlow PA-C. The patient will complete her last Vancomycin infusion tomorrow and will then discontinue this antibiotic and discontinue 3x weekly dialysis and resume twice weekly dialysis. Her ulcer, overlying chronic osteomyelitis has been draining minimally and has not been reportedly painful since her last evaluation. She is now weaned off of citalopram (which had interactions with Moxifloxacin, which we originally wanted to prescribe) and she reports no depression symptoms. 11/08/15 Seen by Shon Barlow PA-C. The patient does not report increased pain or drainage from her ulcer with underlying osteomyelitis. She continues on Vancomycin. 11/03/[address] Sifuentes. The patient does not report pain and only scant drainage from the chronic left lateral malleolar ulcer and underlying chronic osteomyelitis. She's on day 24 of IV vancomycin for the Enterococcus positive wound culture and HBOT for chronic osteomyelitis. 10/27/[address] Sifuentes. The patient reports minimal discomfort and scant drainage from the left lateral malleolar ulcer and underlying chronic osteomyelitis. She continues on IV vancomycin for this problem as well as HBOT without reporting problems. 10/19/15 Seen by Shon Barlow PA-C. The patient reports a stable appearance of her ulcer. She is going to begin 3x weekly dialysis due to the administration of Vancomycin. When she completes her Vancomycin course she will resume twice weekly dialysis. 10/12/[address] Sifuentes. The patient states she's had 5 episodes of diarrhea this morning and complains of some mild left sided abdominal pain. She's been started on IV vancomycin for the left lateral malleolar ulcer cultured for Enterococcus and is under the care of her protocol manager, Dr. Lorenzana, regarding dosing around her dialysis. She does not report drainage nor significant discomfort associated with ulcer nor underlying chronic osteomyelitis of the malleolus and continues with HBOT as adjuvant therapy without reporting problems. 10/06/[address] Sifuentes. The patient continues to report some discomfort regarding her left lateral malleolar ulcer and underlying chronic osteomyelitis. She's seen Dr. Silva, her PCP, whose started a taper of her Celexa over the next 6 weeks due to a potentially serious interaction with fluorquinolone antibiotics which could eventually be useful in treating the Enterococcus faecalis positive wound culture from 09/28/15. She does not report fever or other acute issues currently and has been off of antibiotics for the past week due to the limited options based on sensitivities. She's continued HBOT over this period while we' ve attempted to find an appropriate antibiotic solution. Of note, her bone scan from 09/29/15 confirms persistence of chronic osteomyelitis also. 09/14/15 Seen by Shon Barlow PA-C. The patient reports no difficulty with her doxycycline or HBOT treatments. Her ankle ulcer continues to drain and she has not observed much change. 09/07/[address] Sifuentes. The patient does not report significant pain or drainage associated with her left lateral malleolar ulcer and she continues on doxycycline for associated chronic osteomyelitis without reporting adverse side effects. She's also tolerating HBOT without reporting any problems. 08/24/[address] Sifuentes. The patient reports increased pain and redness in the periwound area of the left lateral malleolar ulcer that overlies the site of chronic osteomyelitis. She does not report fever, chills, sweats, or increased drainage. Her wound culture at the last visit was unremarkable despite being off of antibiotics. She's been approved for HBOT and currently does not report acute URI symptoms but states she has some chronic sinus congestion. Of note, her CXR was consistent with COPD. 08/17/[address] Sifuentes. The patient states her left lateral malleous is more tender than last week with some radiation of pain to the mid foot. She does not report increased 08/04/[address] Sifuentes. The patient attend the ER following our last visit and was sent to [facility] due to acute on chronic renal failure. She'd apparently become dehydrated due to nausea and vomiting and was dx with a small bowel obstruction. Of note, I'd contacted her to discontinue Bactrim, which she'd been on for about a month for left lateral malleolar osteomyelitis, due to her Cr increasing. This has since returned to it's baseline and she's currently not on antibiotics. She does not report increased pain, swelling or drainage associated with the overlying ulcer. She's also to complete the 2nd phase of her bone scan checking for persistence of osteomyelitis later today. 07/28/[address] Sifuentes. The patient does not report drainage or pain associated with the left lateral malleolar ulcer. She continues on an extended course of Bactrim for possible osteomyelitis which is concerning based on her history of chronic kidney disease requiring dialysis. She notes she still produces adequate urine but has not had her renal function checked since 07/05/15 when her Cr was 2.7. 07/20/[address] Sifuentes. The patient does not report any new issues such as pain or increased drainage from the left lateral malleolar ulcer. She continues on Bactrim for possible chronic osteomyelitis of the lateral malleolus. 07/13/[address] Sifuentes. The patient's new to our clinic and has been referred by Dr. Silva for a non-healing surgical wound following excision of a skin cancer ( type unconfirmed) at the left lateral malleolus. This was reportedly performed about 2 months ago and she's been on an extended course of Bactrim for the past month with some resolution in drainage and surrounding erythema. She has an MRI and bone scan of the site from the end of April that both raise suspicion for osteomyelities however. Otherwise her medical history is complicated by chronic renal failure requiring dialysis and a long history of smoking. She does not have a history of diabetes nor does she report rest pain, claudication, fever, sweats, or pain at the ulcer site. Past Medical History This information was obtained from the patient Patient has a medical history of: Depression Carpal tunnel Chronic renal Stage V (Cr 2.7 on 07/05/15; dialysis M, F) Unilateral nephrectomy Allergic rhinitis Hypertension Insomnia Lumbago Osteoporosis Peptic Ulcer Small bowel obstruction (recurrent) Chronic osteomyelitis (left lateral malleolus; dx on MRI and bone scan April 2015 ; reconfirmed on repeat bone scan 07/28/15; persistent but improved on 01/26/16 bone scan) COPD Chronic ulcer (left lateral malleolus) Complaints and Symptoms This information was obtained from the patient Patient complains of: General Notes: I have reviewed and concur with the Review of Systems and Past Family Social History documents completed by the clinician, I have reviewed and concur with the Wound Assessment document completed by the clinician Ear/Nose/Mouth/Throat: Hearing Loss / Aid Integumentary (Hair/Skin/Nails): Open Sore Prior Wound History: Drainage, Erythema, Pain Patient denies complaints or symptoms related to: Cardiovascular (Central/Peripheral): Intermittent Claudication, Lower extremity (leg) resting pain, Lower extremity (leg) swelling Constitutional Symptoms (General Health): Chills, Fever Gastrointestinal (GI): Nausea / Vomiting, Stomach/abdominal pain Hematologic/Lymphatic: Bleeding / Clotting Disorders, Bleeding Tendency Musculoskeletal: Deformities, Joint Swelling Neurological: Abnormal Gait, Loss of Protective Sensation Prior Wound History: Bleeding, Malodor Psychiatric: Memory Loss Respiratory: Oxygen Use, Shortness of Breath OBJECTIVE Constitutional Vital signs reviewed and noted. Well developed. Alert. Clean appearing.. Height/ Length: 60 in (152.4 cm), Weight: 97 lbs (44.09 kgs), BMI: 18.9, Temperature: 98.1 ?F (36.72 ? C), Pulse: 64 bpm, Respiratory Rate: 18 breaths/min, Blood Pressure: 121/64 mmHg, Pulse Oximetry: 95 %. Ears, Nose, Mouth, and Throat: Moderate hearing deficit. Respiratory: No respiratory distress. Even respirations and without use of accessory muscles.. Integumentary (Hair, Skin) No periwound erythema, warmth, or significant drainage. No periwound rashes appreciated or noted otherwise.. Refer to appropriate clinician wound documentation for this visit; heavy adherent overlying drainage, painful on atempted debridement. Wound #2 Left, Lateral Ankle is an acute Full Thickness Surgical Wound and has received a status of Not Healed. Subsequent wound encounter measurements are 0.5cm length x 0.2cm width x 0.1cm depth, with an area of 0.1 sq cm and a volume of 0.01 cubic cm. No tunneling has been noted. No sinus tract has been noted. No undermining has been noted. There is a small amount of serous drainage noted which has no odor. The patient reports a wound pain of level 4/10. The wound margin is attached. Wound bed has No epithelialization, No eschar, Yes slough, No granulation. The periwound skin moisture is normal. The periwound skin color is normal. The periwound skin exhibited: Edema. The temperature of the periwound skin is WNL. Periwound skin does not exhibit signs or symptoms of infection. Local Pulse is Palpable. Neurological: Cranial nerves grossly intact with symmetric function normal by informal observation.. ASSESSMENT Active Problems ICD-10 (Encounter Diagnosis) L97.322 - Non-pressure chronic ulcer of left ankle with fat layer exposed (Encounter Diagnosis) T81.31XD - Disruption of external operation (surgical) wound, not elsewhere classified, subsequent encounter PROCEDURES Wound #2 Wound #2 (Surgical Wound) is located on the left, lateral ankle. A non- selective mechanical debridement with a total area debrided of 0.1 sq cm was performed by Isidoro Sifuentes MD. Non-viable tissue was removed.The procedure was tolerated well with a pain level of 0 throughout and a pain level of 0 following the procedure. Post Debridement Measurements: 0.5cm length x 0.2cm width x 0.1cm depth; with an area of 0.1 sq cm and a volume of 0.01 cubic cm; PLAN Wound Orders: Wound #2 Left, Lateral Ankle Anesthetic Topical Xylocaine to wound bed. - EMLA cream. Cleanser Cleanse Wound: - Normal Saline and gauze. May shower with SNAP dressing - Use Shower Boot Dressings Primary dressing: - border foam. Change Dressing: - Every 3rd day Follow-Up Appointments Return Appointment: - - Next appointment July 01@8:30 am I've reviewed the clinician's documentation and agree with the evaluation and plan as written. Also, we'll attempt to hydrate the ulcer to better facilitate debridement at her next visit. Electronic Signature(s) Signed By: Date: Isidoro Sifuentes MD 07/01/2018 16:47:11 Entered By: Isidoro Sifuentes on 07/01/2018 16:37:11
== END ==
PROVIDERS: PCP Family Medicine; Visit Provider Internal Medicine
DX: T81.31XD Disruption of external operation (surgical) wound, not elsewhere classified, subsequent encounter (principal); L97.321 Non-pressure chronic ulcer of left ankle limited to breakdown of skin
CPT/HCPCS: 99213

== ENCOUNTER → 2018-07-04 11:57 | Outpatient (CLI) | payer MEDICARE, SELFPAY | PROVIDERS: PCP Family Medicine; Visit Provider Internal Medicine | DX: L97.322 Non-pressure chronic ulcer of left ankle with fat layer exposed (principal); L97.511 Non-pressure chronic ulcer of other part of right foot limited to breakdown of skin | CPT/HCPCS: 11042; 87070; 87075; 87205 ==

== ENCOUNTER → 2018-07-08 08:41 | Outpatient (CLI) | payer MEDICARE, SELFPAY | PROVIDERS: PCP Family Medicine; Visit Provider Internal Medicine | DX: T81.31XD Disruption of external operation (surgical) wound, not elsewhere classified, subsequent encounter (principal); L97.521 Non-pressure chronic ulcer of other part of left foot limited to breakdown of skin; L97.321 Non-pressure chronic ulcer of left ankle limited to breakdown of skin | CPT/HCPCS: 97597 ==

== ENCOUNTER → 2018-07-17 08:31 | Outpatient (CLI) | payer MEDICARE, SELFPAY ==
--- NOTE | 2018-07-17 | OV.WND_ITS ---
Progress Note Details Patient Name: Kristine Damon Patient Number: [id number] PatientPatientDate: 07/17/2018 Clinician: Morelia Ibarra Clinician Cosigner: Cyn Gong Physician / Embroidery Operator: Isidoro Sifuentes SUBJECTIVE Chief Complaint This information was obtained from the patient Wound to left lateral ankle. Allergies penicillin, prednisone, cephalexin, codeine, acetaminophen, hydrocodone, ketorolac HPI This information was obtained from the patient 07/16/18. Seen by Dr. Sifuentes. The patient does not report increased drainage associated with the chronic left lateral malleolus surgical wound since her last visit. 07/08/18. Seen by Dr. iSfuentes. The patient does not report increased drainage associated with the chronic left lateral malleolus surgical wound since her last visit. She had a Grafix biologic skin substitute placed on 06/13/18 and as of last week the wound appeared to be nearly healed. Also, the wound culture taken from the left lateral foot trauma wound last week showed no growth. 07/04/18. Seen by Dr. Sifuentes. The patient does not report increased drainage associated with the chronic left lateral malleolus surgical wound since her last visit and she continues to report some generalized foot swelling and pain which is felt to be due to the pathologic fracture. She's also had a chronic satellite ulcer along the lateral aspect of the left foot for number of months however today it appears to have increased drainage. The patient does not report pain at this site however. 07/01/18. Seen by Dr. Sifuentes. The patient does not report increased drainage associated with the chronic left lateral malleolus surgical wound since her last visit however she does report some generalized foot swelling. 06/20/18. Seen by Dr. Sifuentes. The patient does not report increased drainage associated with the chronic left lateral malleolus surgical wound since her last visit however she does report some pain at the wound site. 06/17/18. Seen by Dr. Sifuentes. The patient returns for review of the chronic left lateral malleolus surgical wound following placement of a Grafix biologic skin substitute last Saturday. She does not report pain at the wound site nor increased drainage. 06/13/18. Seen by Dr. Sifuentes. The patient does not report increased pain or drainage associated with the chronic left lateral malleolus surgical wound since her last visit and we're considering placing a Grafix biologic skin substitute today to help promote granulation of this very refractory surgical wound. 06/10/18. Seen by Dr. Sifuentes. The patient does not report increased pain or drainage associated with the chronic left lateral malleolus surgical wound since her last visit. 06/06/18. Seen by Dr. Sifuentes. The patient does not report increased pain or drainage associated with the chronic left lateral malleolus surgical wound since her last visit. 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 She's also no longer on antibiotics and her wound has been showing modest progress over the past 3 weeks since changing to a SNAP wound vac from a ROMEL. 06/03/18. Seen by Dr. Sifuentes. The patient does not report increased pain or drainage associated with the chronic left lateral malleolus surgical wound since her last visit and she's tolerating NPWT with the ROMEL wound vac without difficulty. 05/27/18. Seen by Dr. Sifuentes. The patient does not report increased pain or drainage associated with the chronic left lateral malleolus surgical wound since her last visit and she's tolerating NPWT without difficulty. 05/23/18. Seen by Dr. Sifuentes. The patient does not report increased pain or drainage associated with the chronic left lateral malleolus surgical wound since her last visit and she's tolerating NPWT without difficulty. 05/20/18. Seen by Dr. Sifuentes. The patient does not report increased pain or drainage associated with the chronic left lateral malleolus surgical wound since her last visit and she's tolerating NPWT without difficulty. She continues on IV vancomycin during dialysis for the recent and reccurrent Enterococcus positive wound culture also however notes 2 doses were accidentally missed during dialysis last week. Her regimen completes today and her MRI of the ankle was inconclusive regarding the presence of osteomyelitis. 05/16/18. Seen by Dr. Sifuentes. The patient does not report increased pain or drainage associated with the chronic left lateral malleolus surgical wound since her last visit and she's tolerating NPWT without difficulty. She continues on IV vancomycin during dialysis for the recent Enterococcus positive wound culture also. Her MRI which was performed to re-evaluate the calcaneal stress fracture reports a cortical irregularity along the lateral malleolus that may represent osteomyelitis but must be considered in the context of her surgical debridement also. 05/13/18. Seen by Dr. Sifuentes. The patient reports continued pain in the left lateral malleolus posterior to the surgical wound and she has an MRI scheduled for this morning to evaluate the source of the pain. She also continues on IV vancomycin that's treating the recurrent Enterococcus positive culture and being infused during dialysis. She does not report fevers or feeling unwell otherwise and is tolerating negative pressure wound therapy without difficulty. 05/09/18. Seen by Shon Barlow PA-C. The patient continues on Vancomycin for her left malleolar wound infection which demonstrates stable drainage this week. 05/06/18. Seen by Shon Barlow PA-C. The patient reports stable drainage from her left malleolar wound and continues on Vancomycin to treat the Enterococcus infection of this wound. 05/02/18. Seen by Dr. Sifuentes. The patient reports improvement in the left foot pain and does not report increased drainage or other acute issues regarding the left lateral malleolus surgical wound that's being treated with negative pressure wound therapy. She's also continues on IV vancomycin during dialysis that's treating the recent Enterococcus positive wound culture. 04/29/18. Seen by Dr. Sifuentes. The patient reports improvement in the left foot pain over the past week and does not report increased drainage or other acute issues regarding the left lateral malleolus surgical wound that's being treated with negative pressure wound therapy. She's also now had 2 doses of IV vancomycin during dialysis this week that's treating the recent Enterococcus positive wound culture. 04/25/18. Seen by Dr. Sifuentes. The patient reports improvement in terms of pain associated with the chronic left lateral malleolus surgical wound since starting on IV vancomycin for the recently Enterococcus positive wound culture. She does not report adverse side effects and is receiving her antibiotics during dialysis. 04/22/18. Seen by Dr. Sifuentes. The patient reports some continued pain associated with the chronic left lateral malleolus surgical wound and she's been applying topical gentamicin to treat the recent Enterococcus positive wound culture. Her wound vac was discontinued last week also. Of note. she takes citalopram which complicates treating her wound infection with oral antibiotics and is also on dialysis for end stage renal disease and has received IV vancomycin without difficulty for her previous Enterococcus wound infections. 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 04/18/18. Seen by Dr. Sifuentes. The patient reports decreased pain associated with the chronic left lateral malleolus surgical wound over the past week since we held her wound vac. Her culture grew Enterococcus and she's not currently on antibiotics for this. Of note, her wound healing is complicated considerably by her end stage renal disease and being on dialysis and the wound is a result of deep bone debridement that was performed for chronic osteomyelitis of the malleolus. 04/15/18. Seen by Dr. Sifuentes. The patient continues to report persistent pain associated with the chronic left lateral malleolus surgical wound however she does not report increased drainage and has tolerated NPWT with the SNAP wound vac without difficulty. She' s now been off of antibiotics for the past month and underwent surgical bone debridement for chronic osteomyeylitis of the malleolus in late January. 04/11/18. Seen by Dr. Sifuentes. The patient does not report any new acute issues regarding her chronic left lateral malleolus surgical wound and she's tolerating NPWT with the SNAP wound vac without difficulty. 04/08/18. Seen by Dr. Sifuentes. The patient does not report any new acute issues regarding her chronic left lateral malleolus surgical wound and she's tolerating NPWT with the SNAP wound vac without difficulty. 04/04/18. Seen by Dr. Sifuentes. The patient continues to report pain associated with the chronic left lateral malleolus surgical wound despite the fact we discontinued NPWT at her last visit. Her wound culture grew only yeast and Diptheroids. 04/01/2018. Seen by Dr. Sifuentes. The patient continues to report pain associated with the chronic left lateral malleolus surgical wound. She does not report significant drainage from the site and has tolerated negative pressure wound therapy. She is not currently on antibiotics and has no other acute complaints today. 03/28/18. Seen by Dr. Sifuentes. The patient does not report significant pain nor drainage associated chronic left lateral malleolus surgical wound since her last visit and she's tolerating NPWT with the SNAP wound vac without difficulty. 03/25/18. Seen by Dr. Sifuentes. The patient continues to report pain throughout the midfoot and dorsum of the left foot that limits her ability to walk to only a couple of minutes at a time. She does not report any changes regarding the left lateral ankle surgical wound and is tolerating negative pressure wound therapy without difficulty. She's also not currently on oral antibiotics. 03/18/18. Seen by Dr. Sifuentes. The patient reports intermittent pain associated with the left lateral ankle however shoes are report increased drainage from the lateral malleolus surgical wound since her last visit. She is also tolerating negative pressure wound therapy without difficulty. 03/11/18. Seen by Dr Sifuentes.The patient reports some intermittent pain in the left lateral ankle when bearing weight but does not report significant drainage associated with the left lateral malleolus surgical wound since her last visit. She was changed from ciprofloxacin to doxycycline based on the recent culture growing a resistant coag negative staph organism. She does not report adverse side effects, fevers, or other acute issues today. 03/04/18. Seen by Dr. Sifuentes. The patient does not report significant pain nor drainage associated chronic left lateral malleolus surgical wound since her last visit. She continues on ciprofloxacin for chronic osteomyelitis also without reported adverse side effects. 02/25/18. Seen by Dr. Sifuentes. 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 She saw Dr. John last week and will start to use a bone stimulator to help heal the pathologic fracture. She does not report significant drainage associated with the left lateral malleolus surgical wound. 02/18/18. Seen by Dr. Sifuentes. The patient reports ongoing, but decreasing, pain associated with the left lateral malleolus surgical wound and she continues on ciprofloxacin and Flagy for chronic osteomyelitis without reporting adverse side effects. She'll see her surgeon, Dr. John, this . 02/14/18. Seen by Dr. Sifuentes. The patient reports decreased pain associated with the left lateral malleolus surgical wound and staff report only a moderate amount of drainage on the ROMEL wound vac dressing. She continues on cipro and Flagyl for chronic osteomyelitis and does not report adverse side effects or feeling unwell in general. 02/11/18. Seen by Dr. Sifuentes. The patient continues to report some persistent pain associated with the chronic left lateral malleolus surgical wound since her last visit. She does not report increased drainage however and is scheduled to see Dr. John, her orthopedic surgeon, next Saturday. She continues on ciprofloxacin and Flagyl as well and her surgery was a deep bone debridement to address the chronic osteomyelitis of the malleolus. 02/07/18. Seen by Dr. Sifuentes. 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 John. She reports some persistent discomfort at the wound site and is now on ciprofloxacin and Flagyl. Culture results of the execised bone are not yet available and the patient does not report any adverse side effects from the antibiotics, fevers, nor feeling unwell. 11/27/17. Seen by Dr. Sifuentes. The patient does not report pain associated with the chronic left lateral malleolus ulcer however she does describe diffuse pain throughout the lateral aspect of the foot and heel. She states this has been present for 6 weeks however has not raised the issue at our clinic until last week. She was seen by her primary care provider who subsequently ordered an MRI that revealed a nondisplaced fracture of the calcaneus. The MRI did mention also that the chronic osteomyelitis of the lateral malleolus appears to have improved from the previous imaging. 11/06/17. Seen by Dr. Sifuentes. The patient does not report significant pain or drainage associated with the chronic left lateral malleolar nonpressure ulcers since her last visit. She stop using a dressing due to pain and feels this has resolved in the interim. She's also asked that I look at a finger on her right hand that's been slow to heal since her dog scratched her a few weeks ago. She does not report pain at the site but states it's been draining a bit. 10/23/17. Seen by Dr. Sifuentes. The patient reports some persistent and modest pain associated with chronic left lateral malleolar nonpressure ulcer since her last visit. Does not report increased drainage and has been applying topical gentamicin to treat the recurrent cognitive staph wound infection. 10/02/17. The patient reports some intermittent pain associated with chronic left lateral malleolar nonpressure ulcer since her last visit however does not report increased drainage. 09/10/17. Seen by Shon Barlow PA-C. The patient reports no increase in drainage from her left lateral malleolar ulcer. She continues to abstain from smoking. 08/20/17. Seen by Dr. Sifuentes. The patient does not report significant pain or drainage associated with the chronic left lateral malleolar nonpressure ulcers since her last visit. She applying OTC topical antibiotic as prescribed to treat a recurrent wound infection noted at her last visit. 08/06/17. Seen by Dr. Sifuentes. The patient does not report significant pain or drainage associated with the chronic left lateral malleolar nonpressure ulcers since her last visit. 07/16/17. Seen by Dr. Sifuentes. The patient does not report pain or significant drainage associated with the chronic left lateral malleolar nonpressure ulcers since her last visit. 07/09/17. Seen by Dr. Sifuentes. The patient reports some intermittent pain associated with chronic left lateral malleolar nonpressure ulcer since her last visit however does not report increased drainage. 06/27/17. Seen by Dr. Sifuentes. The patient does not report pain or significant drainage associated with the chronic left lateral malleolar ulcer since her last visit. She feels her previously reported symptoms have improved since starting on levofloxacin for the polymicrobial wound culture following her last visit. 06/20/17. Seen by Dr. Sifuentes. The patient reports some burning associated with the left lateral chronic malleoli are not pressure ulcer. Her wound culture grew stenotrophomonas , enterococcus, and a coag-negative staph. She started on levofloxacin for this to be taken around her dialysis schedule. She does not report fevers or feeling unwell. 06/13/17. Seen by Shon Barlow PA-C. The patient reports that the steri-strips that were used to reduce wound tension were painful and she removed them. Her ulcer at that time grew E.coli which she has finished her antibiotic treatment for. 05/30/17. Seen by Dr. Sifuentes. The patient reports increased pain and drainage associated with the chronic left lateral malleolar ulcer over the past few days. She continues on dialysis and is scheduled to have cataract surgery later this week. She does not report fevers or feeling unwell and is not currently on antibiotics. 04/18/17. Seen by Dr. Sifuentes. The patient does not report pain or significant drainage the chronic left lateral malleolar ulcer over the past week. 03/28/17. Seen by Dr. Sifuentes. The patient does not report significant drainage or pain associated with the chronic left lateral malleolar non-pressure ulcer since her last visit. 03/07/17. Seen by Dr. Sifuentes. The patient does not report significant drainage or pain associated with the chronic left lateral malleolar non-pressure ulcer since her last visit. 02/14/17. Seen by Dr. Sifuentes. The patient feels the drainage from the chronic left lateral malleolar non-pressure ulcer noted at the last visit has decreased. Her wound culture grew Enterococcus and Enterobacter species however she did not tolerate her ciprofloxacin due to GI upset and stopped taking it after the few couple of doses. 02/05/17. Seen by Dr. Sifuentes. The patient does not report increased pain or drainage associated with chronic left lateral malleolar nonpressure ulcers since her last visit. 01/10/17. Seen by Dr. Sifuentes. The patient reports no increase in pain or significant drainage associated with the chronic left lateral malleolar nonpressure ulcer since her last visit. 12/20/16. Seen by Dr. Sifuentes. The patient does not report drainage associated with the chronic left lateral malleolus ulcer since her last visit. 11/29/16. Seen by Dr. Sifuentes. The patient does not report significant drainage associated with the chronic left lateral malleolus ulcer since her last visit. 11/08/16. Seen by Dr. Sifuentes. The patient does not report pain or significant drainage associated with the chronic left lateral malleolus ulcer since her last visit. 10/18/16 Seen by Shno Barlow PA-C. The patient does not report any change in pain or drainage from her chronic left lateral malleolar ulcer since her last evaluation. 10/04/16. Seen by Dr. Sifuentes. The patient does not report pain or significant drainage associated with the chronic left lateral malleolus ulcer. She continues to apply gentamicin cream at each dressing change due to chronic and recurring infections at the ulcer site. 09/27/16. Seen by Dr. Sifuentes.The patient does not report significant drainage or pain associated with chronic left lateral malleolus on pressure ulcer since her last visit. She continues to apply topical gentamicin ointment for the chronic wound infection. 09/13/16. Seen by Dr. Sifuentes. The patient reports scant drainage and no pain associated with the chronic left lateral malleolar non-pressure ulcer and she's applying topical gentamicin daily to treat the recent polymicrobial wound infection as recommended. 09/04/16 Seen by Shon Barlow PA-C. The patient reports minimal drainage and she is attempting to offload the ulcer area when she sleeps using a [place]-saver ankle protector. 08/30/16. Seen by Dr. Sifuentes. The patient reports increased pain and drainage associated with the chronic left lateral malleolr non-pressure ulcer over the past week but she does not report fevers or feeling unwell. Her wound culture from the last visit grew Enterobacter, E. coli, and a coag negative Staph and she started taking Bactrim and applying topical gentamicin yesterday. She's on a 1/2 dose of Bactrim due to her end stage renal disease. 08/23/16. Seen by Dr. Sifuentes. The patient reports some increased drainage on her dressing covering the chronic left lateral malleolar non-pressure ulcer. She does no report pain however nor fevers or feeling unwell. 08/09/16. Seen by Dr. Sifuentes. The patient does not report drainage or pain associated with the chronic left lateral malleolar ulcer. 07/26/16. Seen by Dr. Sifuentes. The patient does not report drainage or pain associated with the chronic left lateral malleolar ulcer since her last visit. 07/11/16. Seen by Dr. Sifuentes. The patient does not report drainage or pain associated with the chronic left lateral malleolar ulcer since her visit last week. 06/21/16 Seen by Shon Barlow PA-C. The patient reports no change in drainage from her left lateral malleolus ulcer. 06/14/16. Seen by Dr. Sifuentes. The patient reportedly minimal drainage associated with the chronic left lateral malleolus ulcer since her last visit. Her arterial Doppler of the left leg was remarkable. 06/07/16. Seen by Dr. Sifuentes. The patient does not report pain or drainage associated with the chronic left lateral malleolar ulcer over the past week. 05/31/16. Seen by Dr. Sifuentes. The patient does not report pain or drainage associated with chronic left lateral malleolus nonpressure ulcer over the past week. Of note, her wound culture from the last visit grew a resistant coag negative Staph. She's not currently taking antibiotics. 05/24/[address] Sifuentes. The patient does not report increased pain or drainage associated with the chronic left lateral malleolar non-pressure ulcer over the past week. 05/17/[address] Sifuentes. The patient does not report pain associated with the chronic left lateral malleolar non-pressure ulcer over the past week and there's only a scant amount of drainage on her dressing today. 05/10/[address] Sifuentes. The patient does not report pain or drainage associated with the chronic left lateral malleolar ulcer or associated underlying malleolar chronic osteomyelitis over the past week. Of note, she had another Epifix skin substitute placed last week. 05/03/[address] Sifuentes. The patient does not report pain or drainage associated with the left lateral malleolar non-pressure ulcer over the past week and she's tolerating HBOT, which is treating associated underlying chronic osteomyelitis, without reporting any issues. 04/26/16 Seen by Shon Barlow PA-C. The patient reports no noted change in her chronic left lateral malleolar ulcer since her last evaluation. 04/19/[address] Sifuentes. The patient does not report pain or drainage associated with the chronic left lateral malleolar non-pressure ulcer nor underlying chronic osteomyelitis. She continues with HBOT but has completed an 8 week course of IV vancomycin. 04/12/[address] Sifuentes. The patient does not report drainage or pain associated with her chronic left lateral malleolar ulcer and underlying chronic osteomyelitis. She' s received 3 placements of Epifix recently and continues with HBOT in addition to an extended course of IV vancomycin. Her wound culture from 04/05/16 showed no organisms and had no growth. 04/05/[address] Sifuentes. The patient does not report pain or drainage from her chronic left lateral malleolar non-pressure ulcer and she continues on IV vancomycin for chronic osteomyelitis of the underlying malleolus. 03/29/[address] Sifuentes. The patient does not report pain or drainage associated with her chronic left lateral malleolar non-pressure ulcer and she continues on IV vancomycin and hyperbaric therapy for underlying chronic osteomyelitis of the malleolus. 03/22/[address] Sifuentes. The patient does not report pain or drainage associated with the chronic left lateral malleolar non-pressure ulcer. 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 She also states she's no longer smoking. 03/06/16 Seen by Shon Barlow PA-C. The patient is changing her dressing daily, as instructed but now reports decreased drainage from her ulcer. 03/01/[address] Sifuentes. The patient does not report pain or significant drainage associated with her chronic left lateral malleolar ulcer and she continues on IV vancomycin and hyperbaric oxygen therapy for underlying chronic osteomyelitis of the lateral malleolus. 02/14/16 Seen by Shon Barlow PA-C. The patient feels her left malleolar ulcer with underlying chronic osteomyelitis may be larger and has been draining more since her last evaluation. She continues on doxycycline and her ulcer culture grew a staph Spp. and E Faecalis both of which were highly resistant. She reports that she is only smoking a few cigarettes per day. Her dialysis continues at 2 times weekly. Her COPD is stable on current medications with no recent exacerbations. 02/08/[address] Sifuentes. The patient does not report pain associated with the chronic left lateral malleolar non-pressure ulcer however the staff report brown drainage on her dressing today. She continues on doxycycline for a recent polymicrobial resistant Staph culture and her recent bone scan on 01/26/16 show's persistent left lateral malleolar osteomyelitis while reporting interval improvement from her previous scan on 09/29/15. She does not report fevers or feeling unwell and she also reports that she's significantly reduced her smoking over the past week. 01/26/[address] Sifuentes. The patient does not report pain associated with the chronic left lateral malleolar non-pressure ulcer nor does she report any problems with the wound vac. She continues on doxycycline without reporting adverse side effects and her bone scan shows persistence of osteomyelitis beneath the ulcer with interval improvement from that of 09/29/16. 01/19/[address] Sifuentes. The patient does not report pain associated with the chronic left lateral malleolar non-pressure ulcer nor any problems with the wound vac. She continues on doxycycline also for a resistant coag neg Staph culture and does not report adverse side effects. 01/12/[address] Sifuentes. The patient does not report pain or significant drainage associated with the chronic left lateral malleolar ulcer. She also is now on doxycycline for a resistant coag neg Staph culture from 12/28/15 and does not report adverse effects. 01/04/[address] Sifuentes. The patient reports some increased pain just proximal to the chronic left lateral malleolar non-pressure ulcer. She's currently using only topical gentamicin to treat an intermediately resistant coag negative Staph culture from the ulcer. 12/28/[address] Sifuentes. The patient does not report drainage and reports only minimal pain associated with the chronic left lateral malleolar ulcer. Her wound culture grew only resistant Staph epi. 12/21/[address] Sifuentes. The patient does not report pain or drainage associated with the chronic left lateral malleolar ulcer and she's continues off of antibiotics. 12/07/2015 Seen by Shon Barlow PA-C. The patient's moxifloxacin has now finished and she does not report any change in left ankle pain or drainage. 11/30/2015 Seen by Shon Barlow PA-C. The patient's moxifloxacin prescription continues for 1 more week. She is currently not undergoing adjunctive hyperbaric oxygen treatments. She reports no change in ulcer pain. 11/25/[address] Sifuentes. The patient does not report any new issues regarding her chronic left lateral malleolar non-pressure ulcer however the staff report some moderate maceration. 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 11/15/15 Seen by Shon Barlow PA-C. The patient will complete her last Vancomycin infusion tomorrow and will then discontinue this antibiotic and discontinue 3x weekly dialysis and resume twice weekly dialysis. Her ulcer, overlying chronic osteomyelitis has been draining minimally and has not been reportedly painful since her last evaluation. She is now weaned off of citalopram (which had interactions with Moxifloxacin, which we originally wanted to prescribe) and she reports no depression symptoms. 11/08/15 Seen by Shon Barlow PA-C. The patient does not report increased pain or drainage from her ulcer with underlying osteomyelitis. She continues on Vancomycin. 11/03/[address] Sifuentes. The patient does not report pain and only scant drainage from the chronic left lateral malleolar ulcer and underlying chronic osteomyelitis. She's on day 24 of IV vancomycin for the Enterococcus positive wound culture and HBOT for chronic osteomyelitis. 10/27/[address] Sifuentes. The patient reports minimal discomfort and scant drainage from the left lateral malleolar ulcer and underlying chronic osteomyelitis. She continues on IV vancomycin for this problem as well as HBOT without reporting problems. 10/19/15 Seen by Shon Barlow PA-C. The patient reports a stable appearance of her ulcer. She is going to begin 3x weekly dialysis due to the administration of Vancomycin. When she completes her Vancomycin course she will resume twice weekly dialysis. 10/12/[address] Sifuentes. The patient states she's had 5 episodes of diarrhea this morning and complains of some mild left sided abdominal pain. 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 Lorenzana, regarding dosing around her dialysis. She does not report drainage nor significant discomfort associated with ulcer nor underlying chronic osteomyelitis of the malleolus and continues with HBOT as adjuvant therapy without reporting problems. 10/06/[address] Sifuentes. The patient continues to report some discomfort regarding her left lateral malleolar ulcer and underlying chronic osteomyelitis. She's seen Dr. Silva, her PCP, whose started a taper of her Celexa over the next 6 weeks due to a potentially serious interaction with fluorquinolone antibiotics which could eventually be useful in treating the Enterococcus faecalis positive wound culture from 09/28/15. She does not report fever or other acute issues currently and has been off of antibiotics for the past week due to the limited options based on sensitivities. She's continued HBOT over this period while we' ve attempted to find an appropriate antibiotic solution. Of note, her bone scan from 09/29/15 confirms persistence of chronic osteomyelitis also. 09/14/15 Seen by Shon Barlow PA-C. The patient reports no difficulty with her doxycycline or HBOT treatments. Her ankle ulcer continues to drain and she has not observed much change. 09/07/[address] Sifuentes. The patient does not report significant pain or drainage associated with her left lateral malleolar ulcer and she continues on doxycycline for associated chronic osteomyelitis without reporting adverse side effects. She's also tolerating HBOT without reporting any problems. 08/24/[address] Sifuentes. The patient reports increased pain and redness in the periwound area of the left lateral malleolar ulcer that overlies the site of chronic osteomyelitis. She does not report fever, chills, sweats, or increased drainage. Her wound culture at the last visit was unremarkable despite being off of antibiotics. She's been approved for HBOT and currently does not report acute URI symptoms but states she has some chronic sinus congestion. Of note, her CXR was consistent with COPD. 08/17/[address] Sifuentes. The patient states her left lateral malleous is more tender than last week with some radiation of pain to the mid foot. She does not report increased 08/04/[address] Sifuentes. The patient attend the ER following our last visit and was sent to [facility] due to acute on chronic renal failure. She'd apparently become dehydrated due to nausea and vomiting and was dx with a small bowel obstruction. Of note, I'd contacted her to discontinue Bactrim, which she'd been on for about a month for left lateral malleolar osteomyelitis, due to her Cr increasing. This has since returned to it's baseline and she's currently not on antibiotics. She does not report increased pain, swelling or drainage associated with the overlying ulcer. She's also to complete the 2nd phase of her bone scan checking for persistence of osteomyelitis later today. 07/28/[address] Sifuentes. The patient does not report drainage or pain associated with the left lateral malleolar ulcer. She continues on an extended course of Bactrim for possible osteomyelitis which is concerning based on her history of chronic kidney disease requiring dialysis. She notes she still produces adequate urine but has not had her renal function checked since 07/05/15 when her Cr was 2.7. 07/20/[address] Sifuentes. The patient does not report any new issues such as pain or increased drainage from the left lateral malleolar ulcer. She continues on Bactrim for possible chronic osteomyelitis of the lateral malleolus. 07/13/[address] Sifuentes. The patient's new to our clinic and has been referred by Dr. Silva for a non-healing surgical wound following excision of a skin cancer ( type unconfirmed) at the left lateral malleolus. This was reportedly performed about 2 months ago and she's been on an extended course of Bactrim for the past month with some resolution in drainage and surrounding erythema. She has an MRI and bone scan of the site from the end of April that both raise suspicion for osteomyelities however. Otherwise her medical history is complicated by chronic renal failure requiring dialysis and a long history of smoking. She does not have a history of diabetes nor does she report rest pain, claudication, fever, sweats, or pain at the ulcer site. Past Medical History This information was obtained from the patient Patient has a medical history of: Depression Carpal tunnel Chronic renal Stage V (Cr 2.7 on 07/05/15; dialysis M, F) Unilateral nephrectomy Allergic rhinitis Hypertension Insomnia Lumbago Osteoporosis Peptic Ulcer Small bowel obstruction (recurrent) Chronic osteomyelitis (left lateral malleolus; dx on MRI and bone scan April 2015 ; reconfirmed on repeat bone scan 07/28/15; persistent but improved on 01/26/16 bone scan) COPD Chronic ulcer (left lateral malleolus) Complaints and Symptoms This information was obtained from the patient Patient complains of: General Notes: I have reviewed and concur with the Review of Systems and Past Family Social History documents completed by the clinician, I have reviewed and concur with the Wound Assessment document completed by the clinician Ear/Nose/Mouth/Throat: Hearing Loss / Aid Integumentary (Hair/Skin/Nails): Open Sore Prior Wound History: Drainage, Erythema, Pain Patient denies complaints or symptoms related to: Cardiovascular (Central/Peripheral): Intermittent Claudication, Lower extremity (leg) resting pain, Lower extremity (leg) swelling Constitutional Symptoms (General Health): Chills, Fever Gastrointestinal (GI): Nausea / Vomiting, Stomach/abdominal pain Hematologic/Lymphatic: Bleeding / Clotting Disorders, Bleeding Tendency Musculoskeletal: Deformities, Joint Swelling Neurological: Abnormal Gait, Loss of Protective Sensation Prior Wound History: Bleeding, Malodor Psychiatric: Memory Loss Respiratory: Oxygen Use, Shortness of Breath OBJECTIVE Constitutional Vital signs reviewed and noted. Well developed. Alert. Clean appearing.. Height/ Length: 60 in (152.4 cm), Weight: 99 lbs (45 kgs), BMI: 19.3, Temperature: 97.3 ?F (36.28 ?C) , Pulse: 61 bpm, Respiratory Rate: 16 breaths/min, Blood Pressure: 130/67 mmHg, Pulse Oximetry: 99 %. Ears, Nose, Mouth, and Throat: Mild hearing deficit. Respiratory: No respiratory distress. Even respirations and without use of accessory muscles.. Integumentary (Hair, Skin) Refer to appropriate clinician wound documentation for this visit.. Wound #2 Left, Lateral Ankle is an acute Full Thickness Surgical Wound and has received an outcome of Healed - no new wound(s). Subsequent wound encounter measurements are 0cm length x 0cm width x 0cm depth, with an area of 0 sq cm and a volume of 0 cubic cm. No tunneling has been noted. No sinus tract has been noted. No undermining has been noted. There was no drainage noted. The patient reports a wound pain of level 0/10. The wound margin is attached. Wound bed has No epithelialization, No eschar, No slough, No granulation. The periwound skin texture is normal. The periwound skin moisture is normal. The periwound skin color is normal. The temperature of the periwound skin is WNL. Periwound skin does not exhibit signs or symptoms of infection. Local Pulse is Palpable. Wound #3 Left, Dorsal Foot is a chronic Partial Thickness Trauma Wound and has received an outcome of Healed - no new wound(s). Subsequent wound encounter measurements are 0cm length x 0cm width x 0cm depth, with an area of 0 sq cm and a volume of 0 cubic cm. No tunneling has been noted. No sinus tract has been noted. No undermining has been noted. There is a scant amount of none drainage noted which has no odor. The patient reports a wound pain of level 0/10. The wound margin is attached. Wound bed has Yes epithelialization, No eschar, No slough, No granulation. The periwound skin texture is normal. The periwound skin moisture is normal. The periwound skin color is normal. The temperature of the periwound skin is WNL. Periwound skin does not exhibit signs or symptoms of infection. Local Pulse is Doppler. Neurological: Cranial nerves grossly intact with symmetric function normal by informal observation.. ASSESSMENT Active Problems ICD-10 (Encounter Diagnosis) L97.322 - Non-pressure chronic ulcer of left ankle with fat layer exposed (Encounter Diagnosis) T81.31XD - Disruption of external operation (surgical) wound, not elsewhere classified, subsequent encounter PLAN Wound Orders: Wound #2 Left, Lateral Ankle Cleanser Cleanse Wound: - Normal Saline and gauze. May shower with SNAP dressing - Use Shower Boot Dressings Primary dressing: - Nexcare Change Dressing: - Every 2-3 days. Keep covered for one more week, then may leave uncovered Follow-Up Appointments Discharge from Outpatient Services. - Wound healed. No Future appointment at this time. Additional Orders: Scribing Attestation I attest, as the nurse, that I scribed these orders for the physician. I've reviewed the clinician's documentation and agree with the evaluation and plan as written. In addition the patient's last remaining complex wound is now healed. The patient is invited to return to our clinic for treatment of any future complex wounds. Post wound care and strategies to avoid recurrences were discussed. Electronic Signature(s) Signed By: Date: Isidoro Sifuentes MD 07/18/2018 08:53:09 Entered By: Isidoro Sifuentes on 07/17/2018 09:42:32
== END ==
PROVIDERS: PCP Family Medicine; Visit Provider Internal Medicine
DX: L97.322 Non-pressure chronic ulcer of left ankle with fat layer exposed (principal)
CPT/HCPCS: 99213

== ENCOUNTER 2018-07-26 13:22 | Emergency (ER) | payer MEDICARE, SELFPAY ==
[2018-07-26 13:32] VITALS: BP 108/62; PULSE 77; RESP 18; TEMP 37.6; O2SAT 94
--- NOTE | 2018-07-26 14:49 | ED_ITS ---
HPI - Nausea/Vomiting/Diarrhea General Chief complaint: Nausea/Vomiting/Diarrhea Stated complaint: ? BOWEL OBSTRUCTION, THROWING UP Time Seen by Provider: 07/26/18 14:41 Source: patient Mode of arrival: ambulatory Limitations: no limitations History of Present Illness HPI Narrative: 77-year-old female with end-stage renal disease on hemodialysis. Receives dialysis on Mondays and Fridays. She also has a history of multiple small-bowel obstructions. She states she has never had surgery for these bowel obstructions. She states that on of this week she started to feel like her abdomen was starting to distend. She received 2 hr of a 3-1/2 hour dialysis treatment on Saturday but requested to stop secondary to increasing pain and distention of her abdomen. She came in today because her abdomen is becoming more distended and she was also becoming nauseous and vomited. Did have a bowel movement this morning. No treatments prior to arrival. No fevers. Related Data Home Medications Medication Instructions Recorded Confirmed tetrahydrozoline [Visine] 1 gtt OP QDAY #0 12/14/11 04/30/18 cholecalciferol (vitamin D3) 50,000 unit PO QWEEK #0 02/03/18 04/30/18 magnesium hydroxide [Milk Of 30 ml PO QDAYP PRN #0 02/03/18 04/30/18 Magnesia Concentrated] polyethylene glycol 3350 [Miralax] 17 gm PO QDAY #0 02/03/18 04/30/18 diphenhydramine HCl [Benadryl] 25 mg PO Q4-6H PRN 06/05/18 06/05/18 flaxseed oil 2,000 mg PO DAILY 06/05/18 06/05/18 furosemide [Lasix] 80 mg PO DAILY 06/05/18 06/05/18 Previous Rx's Medication Instructions Recorded metronidazole [Flagyl] 500 mg PO TID #60 02/05/18 citalopram [Celexa] 0 PO QDAY #270 tab 03/01/18 diazepam 10 mg tablet 30 mg PO HS #270 tab 04/30/18 oxycodone-acetaminophen 5 mg-325 1 tab PO QIDP PRN #360 tab 04/30/18 mg tablet Allergies Allergy/AdvReac Type Severity Reaction Status Date / Time iodine [IODINE] Allergy Severe IV CONTRAST Verified 04/30/18 10:35 acetaminophen [From TYLENOL] Allergy Mild LIMIT Verified 04/30/18 10:35 TYLENOL INTAKE, ONE KIDNEY cephalexin [CEPHALEXIN] Allergy Mild RASH Verified 04/30/18 10:35 Penicillins [PENICILLINS] Allergy Mild RASH Verified 04/30/18 10:35 ketorolac [KETOROLAC] Allergy Unknown NO TORADOL Verified 04/30/18 10:35 codeine [CODEINE] AdvReac Mild NAUSEA,VOMI Verified 04/30/18 10:35 TING,HALLUC INATIONS hydrocodone [HYDROCODONE] AdvReac Mild NAUSEA,VOMITING,DIDN'T Verified 04/30/18 10:35 WORK WELL TO CONTROL PAIN prednisone [PREDNISONE] AdvReac Mild SEVERE Verified 04/30/18 10:35 HALLUCINATIONS Review of Systems Constitutional Denies fatigue, Denies fever(s) and Denies headache(s) ENT Ears, Nose, Mouth, and Throat: Denies vertigo, Denies dizziness and Denies headache(s) Cardiovascular Denies chest pain and Denies dyspnea Respiratory Denies dyspnea Gastrointestinal Gastrointestinal: Reports abdominal pain, Reports bloating, Denies change in bowel habits, Denies constipation, Denies diarrhea, Reports nausea and Reports vomiting Genitourinary Denies dysuria Musculoskeletal Denies myalgias and Denies arthralgias Integumentary/Breasts Denies lesions and Denies rash Neurologic Denies confusion, Denies vertigo, Denies dizziness and Denies headache(s) Psychiatric Denies confusion Endocrine Denies fatigue Hematologic/Lymphatic Denies easy bleeding and Denies easy bruising FOR[facility]LY [facility] Medical History 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 (Acute) ESRD (end stage renal disease) on dialysis (Acute) SBO (small bowel obstruction) (Acute) History of renal cell cancer (Acute) Social History Smoking Status: Current every day smoker Exam Initial Vital Signs Initial Vital Signs: Vital Signs Temperature 99.6 F 07/26/18 13:32 Pulse Rate 77 07/26/18 13:32 Respiratory Rate 18 07/26/18 13:32 Blood Pressure 108/62 07/26/18 13:32 Pulse Oximetry 94 07/26/18 13:32 Const General: cooperative, healthy appearing, comfortable, well developed, well groomed and No acute distress Orientation: alert, awake and oriented x3 HENMT Head: normal to inspection and normocephalic Resp Effort & Inspection: normal respiratory effort Auscultation: clear to auscultation bilaterally Cardio Rate: regular rate Heart Sounds: no murmurs Pulses: radial pulses present GI Inspection: normal to inspection and distended Palpation: soft, No firm and tender Back/Spine/Pelvis Back: No CVA tenderness Skin Lesions: no lesions Rashes: no rashes Neuro General: alert, awake and oriented x3 Cognition: normal cognition Speech: speech normal Extrem General: normal to inspection and capillary refill normal Psych Appearance: grossly normal and well kempt Course Orders Ordered: ED Orders 07/26/18 14:45 Complete Blood Count AUTO DIFF Stat Comprehensive Metabolic Panel Stat 07/26/18 14:52 CT abdomen pelvis wo con Stat 07/26/18 15:05 Lactate (Lactic Acid) Stat Sodium Chloride (Normal Saline 0.9%) 1,000 mls @ 125 mls/hr IV CONT MACRINA Vital Signs - 8 hr 07/26/18 13:32 07/26/18 16:30 Temperature 99.6 F Pulse Rate 77 75 Respiratory Rate 18 15 Blood Pressure 108/62 Blood Pressure [Right Arm] 144/70 H Pulse Oximetry 94 100 MDM - Nausea/Vomiting/Diarrhea Medical Records Attestation: I reviewed the patient's medical records. Lab Data Attestation: I reviewed the patient's lab results. Result diagrams: 07/26/18 14:45 07/26/18 14:45 Lab Results 07/26/18 07/26/18 07/26/18 Range/Units 14:45 14:45 15:05 WBC 16.2 H (4.5-11.0) X10^3/uL RBC 4.54 (4.0-5.2) X10^6/uL Hgb 15.3 (12.0-16.0) g/dL Hct 45.1 (36-46) % MCV 99.3 (80-100) fL MCH 33.7 (26-34) PG MCHC 33.9 (30-36) % RDW 13.1 (11.6-14.8) % Plt Count 307 (150-400) X10^3/uL Neut % (Auto) 85.7 H (50-75) % Lymph % (Auto) 6.8 L (25-40) % Carroll % (Auto) 7.0 (3-14) % Eos % (Auto) 0.1 L (2-4) % Baso % (Auto) 0.4 (0-2) % Neut # (Auto) 67913 H (9801-0238) /uL Sodium 139 (137-145) mmol/L Potassium 4.1 (3.4-5.1) mmol/L Chloride 84 L (98-107) mmol/L Carbon Dioxide 46 H* (22-32) mmol/L BUN 38 H (7-17) mg/dL Creatinine 3.00 H (0.52-1.04) mg/dL Estimated GFR 15.2 L (>60) mL/min BUN/Creatinine Ratio 12.7 (6-22) Glucose 120 H (80-110) mg/dL Lactate 1.2 (0.7-2.1) mmol/L Calcium 10.7 H (8.4-10.2) mg/dL Total Bilirubin 0.6 (0.2-1.3) mg/dL AST 43 H (14-36) IU/L ALT 39 (9-52) IU/L Alkaline Phosphatase 178 H (38-126) U/L Total Protein 7.7 (6.3-8.2) g/dL Albumin 4.7 (3.5-5.0) g/dL Globulin 3.0 (1.7-4.1) g/dL Albumin/Globulin Ratio 1.6 (1.0-2.8) Imaging Data CT scan - abdomen: Radiologist's impression: [place] [address] CT Scan Report Signed Patient: Kristine Damon BMR#: [id number] : 2Acct:[id number] Age/Sex: 77 / FDate of Service: 07/26/18 Loc: ED Accession Number: [id number] Procedure: CT abdomen pelvis wo con Ordering Provider: Rosalino Sibley D.O. PROCEDURE: CT ABDOMEN PELVIS WO CON INDICATIONS: Abdominal distention and vomiting with history of obstructio TECHNIQUE: After the administration of oral contrast, 5 mm thick sections acquired from the diaphragms to the symphysis. 5 mm coronal and sagittal reformats were performed. For radiation dose reduction, the following was used: automated exposure control, adjustment of mA and/or kV according to patient size. COMPARISON: [facility], CT, ABDOMEN/PELVIS WITHOUT CONTRAS, 02/22/2018, 8: 42. FINDINGS: Image quality: Excellent. ABDOMEN: Lung bases: Linear scarring/atelectasis in posterior aspect of bilateral lung bases are seen. Heart size is normal. Solid organs: Liver is normal in size. Gallbladder is within normal limits. Pancreas is normal in size. Spleen is normal in size. Right adrenal gland is within normal limits. Patient is status post left nephrectomy and adrenalectomy. Low density right renal lesions are again seen, unchanged from prior study and are consistent with right renal cysts. Several round area of hyperdensity in right renal cortex are seen likely represent hyperdense cysts or hemorrhagic cysts unchanged from previous studies. No right-sided hydronephrosis or perinephric fat stranding. Peritoneum and bowel: Oral contrast is seen distending gastric lumen and proximal small bowel loops with fluid distended more distal small bowel loops. A few air-fluid levels are seen. Terminal ileum and colon are decompressed. Mild swirling of mesentery in right lower quadrant abdomen is seen. No free air is seen. Small amount of free fluid is noted in lower abdomen and pelvis. Nodes and vessels: No retroperitoneal or mesenteric adenopathy by size criteria. Aorta and inferior vena cava are normal in size. Miscellaneous: No ventral hernias. PELVIS: Genitourinary: Bladder wall thickness is normal. Miscellaneous: No inguinal hernias or adenopathy. Bones: No suspicious bony lesions. No vertebral body compression fractures. IMPRESSION: 1. Finding is suggestive of high-grade distal small bowel obstruction with transition point most likely involving distal ileum and right lower quadrant abdomen. No free air is seen. Small amount of free fluid in lower abdomen and pelvis. 2. Prior left adrenalectomy and nephrectomy. Right-sided renal cysts and possible hyperdense or hemorrhagic cysts unchanged from previous studies. No hydronephrosis. 3. Bibasilar scarring/atelectasis. Dictated by: Sal Basurto M.D. on 07/26/2018 at 16:27 Approved by: Sal Basurto M.D. on 07/26/2018 at 16:35 MDM Narrative Medical decision making narrative: Patient with CT evidence concerning for high- grade small-bowel obstruction. Lactate unremarkable. Does have a slightly elevated white blood cell count. Given her need for hemo dialysis I discussed the case with Dr. Barrett our surgeon floor person who agreed that the patient should be transferred to a location that has the capability of doing hemodialysis. I discussed the case with Dr. Alvarado at [facility] who accepts the patient in transfer. I discussed the transfer with the patient who expressed understanding. IV fluids were started an NG tube was placed. Patient is stable for transport. Discharge Plan Departure Patient Disposition: [facility] Clinical Impression: Small intestine obstruction, ESRD (end stage renal disease) on dialysis Prescriptions: No Action tetrahydrozoline [Visine] 15 ML drops 1 gtt OP QDAY Qty: 0 RF: 0 magnesium hydroxide [Milk Of Magnesia Concentrated] 2,400 MG/10 ML suspension 30 ml PO QDAYP PRN (Reason: Constipation) Qty: 0 RF: 0 polyethylene glycol 3350 [Miralax] 119 GM powder 17 gm PO QDAY Qty: 0 RF: 0 cholecalciferol (vitamin D3) 50,000 UNIT capsule 50,000 unit PO QWEEK Qty: 0 RF: 0 metronidazole [Flagyl] 500 MG tablet 500 mg PO TID Qty: 60 RF: 1 citalopram [Celexa] 20 MG tablet PO QDAY Qty: 270 RF: 3 diazepam [Valium] 10 mg tablet 30 mg PO HS Qty: 270 RF: 5 oxycodone-acetaminophen 5-325 mg tablet 1 tab PO QIDP PRN (Reason: pain) Qty: 360 RF: 0 furosemide [Lasix] 40 mg Tablet 80 mg PO DAILY RF: 0 diphenhydramine HCl [Benadryl] 25 mg Capsule 25 mg PO Q4-6H PRN (Reason: Allergic Symptoms) RF: 0 flaxseed oil 1,000 mg Capsule 2,000 mg PO DAILY RF: 0
--- NOTE | 2018-07-26 14:52 | DI.CT.S_ITS ---
PROCEDURE: CT ABDOMEN PELVIS WO CON INDICATIONS: Abdominal distention and vomiting with history of obstructio TECHNIQUE: After the administration of oral contrast, 5 mm thick sections acquired from the diaphragms to the symphysis. 5 mm coronal and sagittal reformats were performed. For radiation dose reduction, the following was used: automated exposure control, adjustment of mA and/or kV according to patient size. COMPARISON: [facility], CT, ABDOMEN/PELVIS WITHOUT CONTRAS, 02/22/2018, 8:42. FINDINGS: Image quality: Excellent. ABDOMEN: Lung bases: Linear scarring/atelectasis in posterior aspect of bilateral lung bases are seen. Heart size is normal. Solid organs: Liver is normal in size. Gallbladder is within normal limits. Pancreas is normal in size. Spleen is normal in size. Right adrenal gland is within normal limits. Patient is status post left nephrectomy and adrenalectomy. Low density right renal lesions are again seen, unchanged from prior study and are consistent with right renal cysts. Several round area of hyperdensity in right renal cortex are seen likely represent hyperdense cysts or hemorrhagic cysts unchanged from previous studies. No right-sided hydronephrosis or perinephric fat stranding. Peritoneum and bowel: Oral contrast is seen distending gastric lumen and proximal small bowel loops with fluid distended more distal small bowel loops. A few air-fluid levels are seen. Terminal ileum and colon are decompressed. Mild swirling of mesentery in right lower quadrant abdomen is seen. No free air is seen. Small amount of free fluid is noted in lower abdomen and pelvis. Nodes and vessels: No retroperitoneal or mesenteric adenopathy by size criteria. Aorta and inferior vena cava are normal in size. Miscellaneous: No ventral hernias. PELVIS: Genitourinary: Bladder wall thickness is normal. Miscellaneous: No inguinal hernias or adenopathy. Bones: No suspicious bony lesions. No vertebral body compression fractures. IMPRESSION: 1. Finding is suggestive of high-grade distal small bowel obstruction with transition point most likely involving distal ileum and right lower quadrant abdomen. No free air is seen. Small amount of free fluid in lower abdomen and pelvis. 2. Prior left adrenalectomy and nephrectomy. Right-sided renal cysts and possible hyperdense or hemorrhagic cysts unchanged from previous studies. No hydronephrosis. 3. Bibasilar scarring/atelectasis. Dictated by: Sal Basurto M.D. on 07/26/2018 at 16:27 Approved by: Sal Basurto M.D. on 07/26/2018 at 16:35
[2018-07-26 14:59] LABS: Add Manual Diff / Slide Review NO; Basophils Percent Auto 0.4 % (0-2); Eosinophils Percent Auto 0.1 % (2-4); Hematocrit 45.1 % (36-46); Hemoglobin 15.3 g/dL (12.0-16.0); Lymphocytes Percent Auto 6.8 % (25-40); Mean Corpuscular HGB Conc 33.9 % (30-36); Mean Corpuscular Hemoglobin 33.7 PG (26-34); Mean Corpuscular Volume 99.3 fL (80-100); Neutrophils Absolute Auto 13900 /uL (3000-5900); Neutrophils Percent Auto 85.7 % (50-75); Platelet Count 307 X10^3/uL (150-400); Red Blood Cell Count 4.54 X10^6/uL (4.0-5.2); Red Cell Distribution Width 13.1 % (11.6-14.8); White Blood Cell Count 16.2 X10^3/uL (4.5-11.0)
[2018-07-26 15:19] LABS: Alanine Aminotransferase 39 IU/L (9-52); Albumin 4.7 g/dL (3.5-5.0); Albumin Globulin Ratio 1.6 (1.0-2.8); Alkaline Phosphatase 178 U/L (38-126); Aspartate Aminotransferase 43 IU/L (14-36); BUN Creatinine Ratio 12.7 (6-22); Bilirubin Total 0.6 mg/dL (0.2-1.3); Blood Urea Nitrogen 38 mg/dL (7-17); Calcium 10.7 mg/dL (8.4-10.2); Chloride 84 mmol/L (98-107); Estimated Glomerular Filt Rate 15.2 mL/min (>60); Glucose 120 mg/dL (80-110); HEMOLYSIS < 15 (0-50); Potassium 4.1 mmol/L (3.4-5.1); Sodium 139 mmol/L (137-145); Total Protein 7.7 g/dL (6.3-8.2)
[2018-07-26 15:27] LABS: Lactate (Lactic Acid) 1.2 mmol/L (0.7-2.1)
[2018-07-26 15:32] LABS: Carbon Dioxide 46 mmol/L (22-32)
[2018-07-26 16:30] VITALS: BP 144/70; PULSE 75; RESP 15; O2SAT 100
[2018-07-26] MEDS: SODIUM CHLORIDE 0.9% 1,000 ML 125 ML IV (17:37)
[2018-07-26 17:48] VITALS: BP 138/66; PULSE 78; RESP 16; O2SAT 95
[2018-07-26 18:24] VITALS: BP 138/66; PULSE 78; RESP 16; O2SAT 95
== END 2018-07-26 18:26 | disposition short-term general hospital (02) ==
PROVIDERS: Emergency Provider Emergency Medicine; PCP Family Medicine
DX: K56.609 Unspecified intestinal obstruction, unspecified as to partial versus complete obstruction (principal); N18.6 End stage renal disease; Z99.2 Dependence on renal dialysis
CPT/HCPCS: 36591; 74176; 80053; 83605; 85025; 96360; 99283; 99284

== ENCOUNTER → 2018-08-12 08:19 | Outpatient (CLI) | payer MEDICARE, SELFPAY ==
[2018-08-12 08:38] LABS: Add Manual Diff / Slide Review NO; Basophils Percent Auto 0.8 % (0-2); Eosinophils Percent Auto 1.1 % (2-4); Hematocrit 37.5 % (36-46); Hemoglobin 12.8 g/dL (12.0-16.0); Lymphocytes Percent Auto 18.3 % (25-40); Mean Corpuscular HGB Conc 34.2 % (30-36); Mean Corpuscular Hemoglobin 34.2 PG (26-34); Mean Corpuscular Volume 100.2 fL (80-100); Monocytes Percent Auto 5.2 % (3-14); Neutrophils Absolute Auto 6200 /uL (3000-5900); Neutrophils Percent Auto 74.6 % (50-75); Platelet Count 288 X10^3/uL (150-400); Red Blood Cell Count 3.74 X10^6/uL (4.0-5.2); Red Cell Distribution Width 13.3 % (11.6-14.8); White Blood Cell Count 8.4 X10^3/uL (4.5-11.0)
[2018-08-12 08:58] LABS: Alanine Aminotransferase 41 IU/L (9-52); Albumin 4.2 g/dL (3.5-5.0); Albumin Globulin Ratio 1.8 (1.0-2.8); Alkaline Phosphatase 173 U/L (38-126); Aspartate Aminotransferase 40 IU/L (14-36); BUN Creatinine Ratio 6.7 (6-22); Bilirubin Total 0.3 mg/dL (0.2-1.3); Blood Urea Nitrogen 14 mg/dL (7-17); Calcium 10.2 mg/dL (8.4-10.2); Carbon Dioxide 35 mmol/L (22-32); Chloride 102 mmol/L (98-107); Globulin 2.4 g/dL (1.7-4.1); Glucose 91 mg/dL (80-110); HEMOLYSIS < 15 (0-50); Potassium 4.7 mmol/L (3.4-5.1); Sodium 144 mmol/L (137-145); Total Protein 6.6 g/dL (6.3-8.2)
[2018-08-13 14:27] LABS: Free Kappa Light Chain 54.1 mg/L (3.3-19.4); Free Kappa/ Lambda Ratio 1.63 (0.26-1.65); Free Lambda 33.2 mg/L (5.7-26.3)
[2018-08-15 15:48] LABS: Abnormal Protein Band 1 0.1 g/dL (NONE DETECTED); Albumin 4.1 g/dL (3.8-4.8); Alpha 1 Globulin 0.3 g/dL (0.2-0.3); Alpha 2 Globulin 0.7 g/dL (0.5-0.9); Beta 1 Globulin 0.4 g/dL (0.4-0.6); Gamma Globulin 0.6 g/dL (0.8-1.7); Protein, Total 6.4 g/dL (6.1-8.1)
== END ==
PROVIDERS: PCP Family Medicine; Visit Provider Internal Medicine Hematology & Oncology
DX: D47.2 Monoclonal gammopathy (principal)
CPT/HCPCS: 36415; 80053; 83883; 84155; 84165; 85025

== ENCOUNTER 2018-09-25 10:46 | Emergency (ER) | payer MEDICARE, SELFPAY ==
[2018-09-25 10:52] VITALS: BP 145/65; PULSE 70; RESP 14; TEMP 36.7; O2SAT 97
--- NOTE | 2018-09-25 10:53 | ED.ABDPAIN ---
HPI - Abdominal Pain General Chief Complaint: Abdominal Pain Stated Complaint: ? bowel obstruction Time Seen by Provider: 09/25/18 10:53 Source: patient and family Mode of arrival: ambulatory Limitations: no limitations History of Present Illness HPI narrative: 77-year-old female, daily smoker, presents with history of epigastric abdominal pain for the past 4-5 hours. Her pain is worse with motion and improves with rest. She had a bowel movement and is passing gas. She is nauseated and has decreased appetite but denies any vomiting or fever. Her symptoms are most consistent with prior episodes of small-bowel obstruction of which she has mentioned, likely due to adhesions. She has a history of renal cell carcinoma status post left nephrectomy and receives hemodialysis Mondays and Fridays by Dr. Lorenzana ([facility]) complaint: abdominal pain Onset (ago): hour(s) Pain Consistency: constant Location: periumbilical Severity: moderate Quality: cramping, stabbing and aching Radiation: none Migration to: no migration Exacerbating factors: movement Associated symptoms: nausea Related Data Home Medications Medication Instructions Recorded Confirmed tetrahydrozoline [Visine] 1 gtt OP QDAY #0 12/14/11 09/25/18 magnesium hydroxide [Milk Of 30 ml PO DAILY #0 02/03/18 09/25/18 Magnesia Concentrated] polyethylene glycol 3350 [Miralax] 17 gm PO QDAY PRN #0 02/03/18 09/25/18 diphenhydramine HCl [Benadryl] 25 mg PO Q4-6H PRN 06/05/18 09/25/18 flaxseed oil 2,000 mg PO DAILY 06/05/18 09/25/18 furosemide [Lasix] 40 mg PO BID 06/05/18 09/25/18 Lactobacillus acidophilus 1 cap PO DAILY 08/21/18 09/25/18 [Probiotic] multivitamin [Daily-Julee] 1 tab PO DAILY 08/21/18 09/25/18 citalopram 60 mg PO DAILY 09/25/18 09/25/18 sod phos di, mono-K phos mono 2 tab PO BID 09/25/18 09/25/18 [Q-Ascv-Nphxwlc] Previous Rx's Medication Instructions Recorded diazepam 10 mg tablet 30 mg PO HS #270 tab 09/17/18 oxycodone-acetaminophen 5 mg-325 1 tab PO QIDP PRN #360 tab 09/17/18 mg tablet Allergies Allergy/AdvReac Type Severity Reaction Status Date / Time iodine [IODINE] Allergy Severe IV CONTRAST Verified 09/25/18 10:52 acetaminophen [From TYLENOL] Allergy Mild LIMIT Verified 09/25/18 10:52 TYLENOL INTAKE, ONE KIDNEY cephalexin [CEPHALEXIN] Allergy Mild RASH Verified 09/25/18 10:52 Penicillins [PENICILLINS] Allergy Mild RASH Verified 09/25/18 10:52 ketorolac [KETOROLAC] Allergy Unknown NO TORADOL Verified 09/25/18 10:52 codeine [CODEINE] AdvReac Mild NAUSEA,VOMI Verified 09/25/18 10:52 TING,HALLUC INATIONS hydrocodone [HYDROCODONE] AdvReac Mild NAUSEA,VOMITING,DIDN'T Verified 09/25/18 10:52 WORK WELL TO CONTROL PAIN prednisone [PREDNISONE] AdvReac Mild SEVERE Verified 09/25/18 10:52 HALLUCINATIONS Review of Systems Review of Systems All systems reviewed & are unremarkable except as noted in HPI and below Constitutional Denies chills, Denies fever(s), Denies lethargy and Denies weakness Eyes Denies change in vision, Denies eye discharge, Denies irritation and Denies loss of vision ENT Ears, Nose, Mouth, and Throat: Denies change in voice, Denies neck pain and Denies sore throat Cardiovascular Denies chest pain, Denies irregular heart rhythm, Denies lightheadedness, Denies palpitations, Denies dyspnea, Denies dyspnea on exertion and Denies orthopnea Respiratory Denies cough, Denies dyspnea, Denies dyspnea on exertion and Denies wheezing Gastrointestinal Gastrointestinal: Reports abdominal pain, Denies change in bowel habits, Denies diarrhea, Reports nausea and Denies vomiting Genitourinary Denies hematuria, Denies flank pain, Denies urinary incontinence and Denies urinary urgency Musculoskeletal Denies neck pain Integumentary/Breasts Denies pruritus, Denies erythema, Denies rash and Denies wounds Neurologic Denies confusion, Denies loss of vision and Denies weakness Psychiatric Denies anxiety, Denies confusion, Denies depression, Denies homicidal ideation and Denies suicidal ideation Endocrine Denies palpitations Hematologic/Lymphatic Denies easy bruising Allergic/Immunologic Denies wheezing [facility] Medical History 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 (Acute) ESRD (end stage renal disease) on dialysis (Acute) History of renal cell cancer (Acute) SBO (small bowel obstruction) (Acute) Social History Smoking Status: Current every day smoker Exam Narrative Exam Narrative: 77-year-old female, obviously uncomfortable and not feeling Initial Vital Signs Initial Vital Signs: Vital Signs Temperature 98.0 F 09/25/18 10:52 Pulse Rate 70 09/25/18 10:52 Respiratory Rate 14 09/25/18 10:52 Blood Pressure 145/65 H 09/25/18 10:52 Pulse Oximetry 97 09/25/18 10:52 Const General: cooperative, well developed and in distress Nutritional Appearance: thin Orientation: alert, awake, oriented x3 and not confused HENMT Head: normocephalic and atraumatic Ears: external ears normal and TM's normal bilaterally Nose: external nose normal and No nasal discharge Face and sinus: sinuses nontender, face symmetric, no sinus tenderness and No dry mucous membranes Mouth: oral mucosae normal and moist mucous membranes Teeth and gingiva: dentition normal Throat: tonsils normal and uvula midline Eyes General: appearance normal, both eyes and all related structures Eyelids: eyelids normal Sclera: sclerae normal Pupils: PERRL EOM: EOM intact bilaterally Neck Neck: normal visual inspection, trachea midline, No lymphadenopathy, No midline deformity and No JVD Lymphatic: No lymphedema Chest Chest: normal inspection of the chest Cardio Rate: regular rate Rhythm: regular rhythm Heart Sounds: no click, no gallops, no murmurs and no rubs Pulses: normal peripheral pulses GI Inspection: distended Palpation: soft, no hepatosplenomegaly, No guarding, No pulsatile mass and tender Auscultation: hypoactive bowel sounds Back/Spine/Pelvis Back: No CVA tenderness Cervical Spine: cervical ROM normal and No pain with cervical ROM Thoracic/Lumbar Spine: thoracic and lumbar spine normal to inspection Neuro General: alert, oriented x3, gait normal and no focal motor deficits Speech: speech normal Course Orders Ordered: ED Orders 09/25/18 10:57 XR acute abdomen series Stat 09/25/18 11:00 Basic Metabolic Panel Stat Complete Blood Count AUTO DIFF Stat Lactate (Lactic Acid) Stat Discontinued Medications Hydromorphone HCl (Dilaudid) 0.5 mg IV NOW ONE Stop: 09/25/18 12:09 Last Admin: 09/25/18 12:13 Dose: 0.5 mg Pantoprazole Sodium (Protonix) 40 mg IV NOW ONE Stop: 09/25/18 10:57 Last Admin: 09/25/18 11:27 Dose: 40 mg Reevaluation(s) Reevaluation #1: patient with mild improvement after Dilaudid discussed NG tube, but patient currently refurses Consultations Consultation #1: hospitalist at [facility] (Dr. Wylie) happy to accept Vital Signs - 8 hr 09/25/18 10:52 09/25/18 12:38 Temperature 98.0 F Pulse Rate 70 68 Respiratory Rate 14 13 Blood Pressure 145/65 H Blood Pressure [Right Arm] 115/59 L Pulse Oximetry 97 93 MDM - Abdominal Pain Differential Diagnosis Differential diagnosis: Likely abdominal pain and small bowel obstruction Medical Records Attestation: I reviewed the patient's medical records. Lab Data Attestation: I reviewed the patient's lab results. Result diagrams: 09/25/18 11:00 09/25/18 11:00 Lab Results 09/25/18 09/25/18 09/25/18 Range/Units 11:00 11:00 11:00 WBC 12.2 H (4.5-11.0) X10^3/uL RBC 3.79 L (4.0-5.2) X10^6/uL Hgb 12.7 (12.0-16.0) g/dL Hct 37.8 (36-46) % MCV 99.6 (80-100) fL MCH 33.6 (26-34) PG MCHC 33.7 (30-36) % RDW 12.4 (11.6-14.8) % Plt Count 304 (150-400) X10^3/uL Neut % (Auto) 81.6 H (50-75) % Lymph % (Auto) 11.6 L (25-40) % [place] % (Auto) 5.3 (3-14) % Eos % (Auto) 0.7 L (2-4) % Baso % (Auto) 0.8 (0-2) % Neut # (Auto) 48366 H (3553-1058) /uL Sodium 142 (137-145) mmol/L Potassium 3.8 (3.4-5.1) mmol/L Chloride 90 L (98-107) mmol/L Carbon Dioxide 39 H (22-32) mmol/L BUN 37 H (7-17) mg/dL Creatinine 2.60 H (0.52-1.04) mg/dL Estimated GFR 17.9 L (>60) mL/min BUN/Creatinine Ratio 14.2 (6-22) Glucose 120 H (80-110) mg/dL Lactate 0.8 (0.7-2.1) mmol/L Calcium 9.0 (8.4-10.2) mg/dL Imaging Data Abdominal x-ray: Radiologist's impression: [address] [address] XRay Report Signed Patient: Kristine Damon BMR#: [id number] : 2Acct:[id number] Age/Sex: 77 / FDate of Service: 09/25/18 Loc: ED Accession Number: [id number] Procedure: XR acute abdomen series Ordering Provider: Keith Arvizu D.O. PROCEDURE: XR ACUTE ABDOMEN SERIES INDICATIONS: Abdominal pain TECHNIQUE: One view chest and two views of the abdomen were acquired. COMPARISON: [facility], , XR ABDOMEN 2 VIEWS, 07/28/2018, 9:39. [facility], , ABDOMEN ACUTE SERIES, 02/20/2017, 12:41. FINDINGS: Surgical changes and devices: Surgical clips are present within the left hemiabdomen. Chest: Linear left basilar opacity is present. Heart size is normal. No pleural effusions. No pneumoperitoneum. Abdomen: There is an overall paucity of bowel gas with several scattered prominent fluid filled bowel loops. No suspicious calcifications. Visualized solid organ contours appear normal. Bones: No suspicious bony lesions. Prominent levoconvex scoliotic curvature is present within the lumbar spine. IMPRESSION: 1. Linear left basilar opacity likely atelectasis. 2. Paucity of bowel gas with scattered areas of mildly dilated and fluid filled bowel is most suggestive of small bowel obstruction. Dictated by: Peg Sigala M.D. on 09/25/2018 at 11:15 Approved by: Peg Sigala M.D. on 09/25/2018 at 11:16 [facility] Narrative Medical decision making narrative: 77-year-old female with history of renal cell carcinoma and hemodialysis presents upper abdominal pain consistent with prior small-bowel obstructions. On exam she is tender with decreased bowel sounds but soft. X-ray suggests small bowel obstruction. Patient will require hemodialysis during admission and therefore will require transfer. She has a history of Nephrology at [facility] Discharge Plan Departure Prescriptions: No Action tetrahydrozoline [Visine] 15 ML drops 1 gtt OP QDAY Qty: 0 RF: 0 magnesium hydroxide [Milk Of Magnesia Concentrated] 2,400 MG/10 ML suspension 30 ml PO DAILY Qty: 0 RF: 0 polyethylene glycol 3350 [Miralax] 119 GM powder 17 gm PO QDAY PRN (Reason: Constipation) Qty: 0 RF: 0 diazepam [Valium] 10 mg tablet 30 mg PO HS Qty: 270 RF: 0 oxycodone-acetaminophen 5-325 mg tablet 1 tab PO QIDP PRN (Reason: pain) Qty: 360 RF: 0 furosemide [Lasix] 40 mg Tablet 40 mg PO BID RF: 0 diphenhydramine HCl [Benadryl] 25 mg Capsule 25 mg PO Q4-6H PRN (Reason: Allergic Symptoms) RF: 0 flaxseed oil 1,000 mg Capsule 2,000 mg PO DAILY RF: 0 Lactobacillus acidophilus [Probiotic] 10 billion cell Capsule 1 cap PO DAILY RF: 0 multivitamin [Daily-Julee] Tablet 1 tab PO DAILY RF: 0 citalopram 20 mg tablet 60 mg PO DAILY RF: 0 sod phos di, mono-K phos mono [J-Slxu-[place]] 250 mg tablet 2 tab PO BID RF: 0
--- NOTE | 2018-09-25 10:57 | DI.RAD.S_ITS ---
PROCEDURE: XR ACUTE ABDOMEN SERIES INDICATIONS: Abdominal pain TECHNIQUE: One view chest and two views of the abdomen were acquired. COMPARISON: [facility], CR, XR ABDOMEN 2 VIEWS, 07/28/2018, 9:39. [facility], CR, ABDOMEN ACUTE SERIES, 02/20/2017, 12:41. FINDINGS: Surgical changes and devices: Surgical clips are present within the left hemiabdomen. Chest: Linear left basilar opacity is present. Heart size is normal. No pleural effusions. No pneumoperitoneum. Abdomen: There is an overall paucity of bowel gas with several scattered prominent fluid filled bowel loops. No suspicious calcifications. Visualized solid organ contours appear normal. Bones: No suspicious bony lesions. Prominent levoconvex scoliotic curvature is present within the lumbar spine. IMPRESSION: 1. Linear left basilar opacity likely atelectasis. 2. Paucity of bowel gas with scattered areas of mildly dilated and fluid filled bowel is most suggestive of small bowel obstruction. Dictated by: Peg Sigala M.D. on 09/25/2018 at 11:15 Approved by: Peg Sigala M.D. on 09/25/2018 at 11:16
--- NOTE | 2018-09-25 11:00 | ED_ITS ---
HPI - Abdominal Pain General Chief Complaint: Abdominal Pain Stated Complaint: ? bowel obstruction Time Seen by Provider: 09/25/18 10:53 Source: patient and family Mode of arrival: ambulatory Limitations: no limitations History of Present Illness HPI narrative: 77-year-old female, daily smoker, presents with history of epigastric abdominal pain for the past 4-5 hours. Her pain is worse with motion and improves with rest. She had a bowel movement and is passing gas. She is nauseated and has decreased appetite but denies any vomiting or fever. Her symptoms are most consistent with prior episodes of small-bowel obstruction of which she has mentioned, likely due to adhesions. She has a history of renal cell carcinoma status post left nephrectomy and receives hemodialysis Mondays and Fridays by Dr. Lorenzana ([facility]) complaint: abdominal pain Onset (ago): hour(s) Pain Consistency: constant Location: periumbilical Severity: moderate Quality: cramping, stabbing and aching Radiation: none Migration to: no migration Exacerbating factors: movement Associated symptoms: nausea Related Data Home Medications Medication Instructions Recorded Confirmed tetrahydrozoline [Visine] 1 gtt OP QDAY #0 12/14/11 09/25/18 magnesium hydroxide [Milk Of 30 ml PO DAILY #0 02/03/18 09/25/18 Magnesia Concentrated] polyethylene glycol 3350 [Miralax] 17 gm PO QDAY PRN #0 02/03/18 09/25/18 diphenhydramine HCl [Benadryl] 25 mg PO Q4-6H PRN 06/05/18 09/25/18 flaxseed oil 2,000 mg PO DAILY 06/05/18 09/25/18 furosemide [Lasix] 40 mg PO BID 06/05/18 09/25/18 Lactobacillus acidophilus 1 cap PO DAILY 08/21/18 09/25/18 [Probiotic] multivitamin [Daily-Julee] 1 tab PO DAILY 08/21/18 09/25/18 citalopram 60 mg PO DAILY 09/25/18 09/25/18 sod phos di, mono-K phos mono 2 tab PO BID 09/25/18 09/25/18 [S-Ucgs-Eorueoh] Previous Rx's Medication Instructions Recorded diazepam 10 mg tablet 30 mg PO HS #270 tab 09/17/18 oxycodone-acetaminophen 5 mg-325 1 tab PO QIDP PRN #360 tab 09/17/18 mg tablet Allergies Allergy/AdvReac Type Severity Reaction Status Date / Time iodine [IODINE] Allergy Severe IV CONTRAST Verified 09/25/18 10:52 acetaminophen [From TYLENOL] Allergy Mild LIMIT Verified 09/25/18 10:52 TYLENOL INTAKE, ONE KIDNEY cephalexin [CEPHALEXIN] Allergy Mild RASH Verified 09/25/18 10:52 Penicillins [PENICILLINS] Allergy Mild RASH Verified 09/25/18 10:52 ketorolac [KETOROLAC] Allergy Unknown NO TORADOL Verified 09/25/18 10:52 codeine [CODEINE] AdvReac Mild NAUSEA,VOMI Verified 09/25/18 10:52 TING,HALLUC INATIONS hydrocodone [HYDROCODONE] AdvReac Mild NAUSEA,VOMITING,DIDN'T Verified 09/25/18 10:52 WORK WELL TO CONTROL PAIN prednisone [PREDNISONE] AdvReac Mild SEVERE Verified 09/25/18 10:52 HALLUCINATIONS Review of Systems Review of Systems All systems reviewed & are unremarkable except as noted in HPI and below Constitutional Denies chills, Denies fever(s), Denies lethargy and Denies weakness Eyes Denies change in vision, Denies eye discharge, Denies irritation and Denies loss of vision ENT Ears, Nose, Mouth, and Throat: Denies change in voice, Denies neck pain and Denies sore throat Cardiovascular Denies chest pain, Denies irregular heart rhythm, Denies lightheadedness, Denies palpitations, Denies dyspnea, Denies dyspnea on exertion and Denies orthopnea Respiratory Denies cough, Denies dyspnea, Denies dyspnea on exertion and Denies wheezing Gastrointestinal Gastrointestinal: Reports abdominal pain, Denies change in bowel habits, Denies diarrhea, Reports nausea and Denies vomiting Genitourinary Denies hematuria, Denies flank pain, Denies urinary incontinence and Denies urinary urgency Musculoskeletal Denies neck pain Integumentary/Breasts Denies pruritus, Denies erythema, Denies rash and Denies wounds Neurologic Denies confusion, Denies loss of vision and Denies weakness Psychiatric Denies anxiety, Denies confusion, Denies depression, Denies homicidal ideation and Denies suicidal ideation Endocrine Denies palpitations Hematologic/Lymphatic Denies easy bruising Allergic/Immunologic Denies wheezing [facility] Medical History 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 (Acute) ESRD (end stage renal disease) on dialysis (Acute) History of renal cell cancer (Acute) SBO (small bowel obstruction) (Acute) Social History Smoking Status: Current every day smoker Exam Narrative Exam Narrative: 77-year-old female, obviously uncomfortable and not feeling Initial Vital Signs Initial Vital Signs: Vital Signs Temperature 98.0 F 09/25/18 10:52 Pulse Rate 70 09/25/18 10:52 Respiratory Rate 14 09/25/18 10:52 Blood Pressure 145/65 H 09/25/18 10:52 Pulse Oximetry 97 09/25/18 10:52 Const General: cooperative, well developed and in distress Nutritional Appearance: thin Orientation: alert, awake, oriented x3 and not confused HENMT Head: normocephalic and atraumatic Ears: external ears normal and TM's normal bilaterally Nose: external nose normal and No nasal discharge Face and sinus: sinuses nontender, face symmetric, no sinus tenderness and No dry mucous membranes Mouth: oral mucosae normal and moist mucous membranes Teeth and gingiva: dentition normal Throat: tonsils normal and uvula midline Eyes General: appearance normal, both eyes and all related structures Eyelids: eyelids normal Sclera: sclerae normal Pupils: PERRL EOM: EOM intact bilaterally Neck Neck: normal visual inspection, trachea midline, No lymphadenopathy, No midline deformity and No JVD Lymphatic: No lymphedema Chest Chest: normal inspection of the chest Cardio Rate: regular rate Rhythm: regular rhythm Heart Sounds: no click, no gallops, no murmurs and no rubs Pulses: normal peripheral pulses GI Inspection: distended Palpation: soft, no hepatosplenomegaly, No guarding, No pulsatile mass and tender Auscultation: hypoactive bowel sounds Back/Spine/Pelvis Back: No CVA tenderness Cervical Spine: cervical ROM normal and No pain with cervical ROM Thoracic/Lumbar Spine: thoracic and lumbar spine normal to inspection Neuro General: alert, oriented x3, gait normal and no focal motor deficits Speech: speech normal Course Orders Ordered: ED Orders 09/25/18 10:57 XR acute abdomen series Stat 09/25/18 11:00 Basic Metabolic Panel Stat Complete Blood Count AUTO DIFF Stat Lactate (Lactic Acid) Stat Discontinued Medications Hydromorphone HCl (Dilaudid) 0.5 mg IV NOW ONE Stop: 09/25/18 12:09 Last Admin: 09/25/18 12:13 Dose: 0.5 mg Pantoprazole Sodium (Protonix) 40 mg IV NOW ONE Stop: 09/25/18 10:57 Last Admin: 09/25/18 11:27 Dose: 40 mg Reevaluation(s) Reevaluation #1: patient with mild improvement after Dilaudid discussed NG tube, but patient currently refurses Consultations Consultation #1: hospitalist at [facility] (Dr. Wylie) happy to accept Vital Signs - 8 hr 09/25/18 10:52 09/25/18 12:38 Temperature 98.0 F Pulse Rate 70 68 Respiratory Rate 14 13 Blood Pressure 145/65 H Blood Pressure [Right Arm] 115/59 L Pulse Oximetry 97 93 MDM - Abdominal Pain Differential Diagnosis Differential diagnosis: Likely abdominal pain and small bowel obstruction Medical Records Attestation: I reviewed the patient's medical records. Lab Data Attestation: I reviewed the patient's lab results. Result diagrams: 09/25/18 11:00 09/25/18 11:00 Lab Results 09/25/18 09/25/18 09/25/18 Range/Units 11:00 11:00 11:00 WBC 12.2 H (4.5-11.0) X10^3/uL RBC 3.79 L (4.0-5.2) X10^6/uL Hgb 12.7 (12.0-16.0) g/dL Hct 37.8 (36-46) % MCV 99.6 (80-100) fL MCH 33.6 (26-34) PG MCHC 33.7 (30-36) % RDW 12.4 (11.6-14.8) % Plt Count 304 (150-400) X10^3/uL Neut % (Auto) 81.6 H (50-75) % Lymph % (Auto) 11.6 L (25-40) % [place] % (Auto) 5.3 (3-14) % Eos % (Auto) 0.7 L (2-4) % Baso % (Auto) 0.8 (0-2) % Neut # (Auto) 46227 H (7528-4182) /uL Sodium 142 (137-145) mmol/L Potassium 3.8 (3.4-5.1) mmol/L Chloride 90 L (98-107) mmol/L Carbon Dioxide 39 H (22-32) mmol/L BUN 37 H (7-17) mg/dL Creatinine 2.60 H (0.52-1.04) mg/dL Estimated GFR 17.9 L (>60) mL/min BUN/Creatinine Ratio 14.2 (6-22) Glucose 120 H (80-110) mg/dL Lactate 0.8 (0.7-2.1) mmol/L Calcium 9.0 (8.4-10.2) mg/dL Imaging Data Abdominal x-ray: Radiologist's impression: [address] [address] XRay Report Signed Patient: Kristine Damon BMR#: [id number] : 2Acct:[id number] Age/Sex: 77 / FDate of Service: 09/25/18 Loc: ED Accession Number: [id number] Procedure: XR acute abdomen series Ordering Provider: Keith Arviuz D.O. PROCEDURE: XR ACUTE ABDOMEN SERIES INDICATIONS: Abdominal pain TECHNIQUE: One view chest and two views of the abdomen were acquired. COMPARISON: [facility], , XR ABDOMEN 2 VIEWS, 07/28/2018, 9:39. [facility], , ABDOMEN ACUTE SERIES, 02/20/2017, 12:41. FINDINGS: Surgical changes and devices: Surgical clips are present within the left hemiabdomen. Chest: Linear left basilar opacity is present. Heart size is normal. No pleural effusions. No pneumoperitoneum. Abdomen: There is an overall paucity of bowel gas with several scattered prominent fluid filled bowel loops. No suspicious calcifications. Visualized solid organ contours appear normal. Bones: No suspicious bony lesions. Prominent levoconvex scoliotic curvature is present within the lumbar spine. IMPRESSION: 1. Linear left basilar opacity likely atelectasis. 2. Paucity of bowel gas with scattered areas of mildly dilated and fluid filled bowel is most suggestive of small bowel obstruction. Dictated by: Peg Sigala M.D. on 09/25/2018 at 11:15 Approved by: Peg Sigala M.D. on 09/25/2018 at 11:16 [facility] Narrative Medical decision making narrative: 77-year-old female with history of renal cell carcinoma and hemodialysis presents upper abdominal pain consistent with prior small-bowel obstructions. On exam she is tender with decreased bowel sounds but soft. X-ray suggests small bowel obstruction. Patient will require hemodialysis during admission and therefore will require transfer. She has a history of Nephrology at [facility] Discharge Plan Departure Prescriptions: No Action tetrahydrozoline [Visine] 15 ML drops 1 gtt OP QDAY Qty: 0 RF: 0 magnesium hydroxide [Milk Of Magnesia Concentrated] 2,400 MG/10 ML suspension 30 ml PO DAILY Qty: 0 RF: 0 polyethylene glycol 3350 [Miralax] 119 GM powder 17 gm PO QDAY PRN (Reason: Constipation) Qty: 0 RF: 0 diazepam [Valium] 10 mg tablet 30 mg PO HS Qty: 270 RF: 0 oxycodone-acetaminophen 5-325 mg tablet 1 tab PO QIDP PRN (Reason: pain) Qty: 360 RF: 0 furosemide [Lasix] 40 mg Tablet 40 mg PO BID RF: 0 diphenhydramine HCl [Benadryl] 25 mg Capsule 25 mg PO Q4-6H PRN (Reason: Allergic Symptoms) RF: 0 flaxseed oil 1,000 mg Capsule 2,000 mg PO DAILY RF: 0 Lactobacillus acidophilus [Probiotic] 10 billion cell Capsule 1 cap PO DAILY RF: 0 multivitamin [Daily-Julee] Tablet 1 tab PO DAILY RF: 0 citalopram 20 mg tablet 60 mg PO DAILY RF: 0 sod phos di, mono-K phos mono [O-Dlou-Yxvcqqj] 250 mg tablet 2 tab PO BID RF: 0
[2018-09-25 11:15] LABS: Add Manual Diff / Slide Review NO; Basophils Percent Auto 0.8 % (0-2); Eosinophils Percent Auto 0.7 % (2-4); Hematocrit 37.8 % (36-46); Hemoglobin 12.7 g/dL (12.0-16.0); Lymphocytes Percent Auto 11.6 % (25-40); Mean Corpuscular HGB Conc 33.7 % (30-36); Mean Corpuscular Hemoglobin 33.6 PG (26-34); Mean Corpuscular Volume 99.6 fL (80-100); Monocytes Percent Auto 5.3 % (3-14); Neutrophils Absolute Auto 10000 /uL (3000-5900); Neutrophils Percent Auto 81.6 % (50-75); Platelet Count 304 X10^3/uL (150-400); Red Blood Cell Count 3.79 X10^6/uL (4.0-5.2); Red Cell Distribution Width 12.4 % (11.6-14.8); White Blood Cell Count 12.2 X10^3/uL (4.5-11.0)
[2018-09-25 11:24] LABS: Lactate (Lactic Acid) 0.8 mmol/L (0.7-2.1)
[2018-09-25 11:25] LABS: BUN Creatinine Ratio 14.2 (6-22); Blood Urea Nitrogen 37 mg/dL (7-17); Chloride 90 mmol/L (98-107); Estimated Glomerular Filt Rate 17.9 mL/min (>60); Glucose 120 mg/dL (80-110); HEMOLYSIS 20 (0-50); Potassium 3.8 mmol/L (3.4-5.1); Sodium 142 mmol/L (137-145)
[2018-09-25] MEDS: PANTOPRAZOLE 40 MG VIAL IV (11:27)
[2018-09-25 12:10] LABS: Carbon Dioxide 39 mmol/L (22-32)
[2018-09-25] MEDS: HYDROMORPHONE 1 MG INJ 0.5 MG IV (12:13)
[2018-09-25 12:38] VITALS: BP 115/59; PULSE 68; RESP 13; O2SAT 93
[2018-09-25 13:17] VITALS: BP 126/51; PULSE 66; RESP 15; O2SAT 94
[2018-09-25 13:48] VITALS: BP 112/52; PULSE 67; RESP 15; O2SAT 97
== END 2018-09-25 13:50 | disposition short-term general hospital (02) ==
PROVIDERS: Emergency Provider Emergency Medicine; PCP Family Medicine
DX: K56.609 Unspecified intestinal obstruction, unspecified as to partial versus complete obstruction (principal)
CPT/HCPCS: 36591; 74022; 80048; 81003; 83605; 85025; 96374; 96375; 99283; 99284; C9113; J1170

== ENCOUNTER → 2018-10-16 11:30 | Oncology outpatient (ONC) | payer MEDICARE, SELFPAY ==
--- NOTE | 2018-06-05 17:49 | ONC.CONS ---
History of Present Illness - Data of Consult Consult date: 06/05/18 Requesting Physician: Lynda Lorenzana MD Primary Care Provider: Sagar Silva MD - Consult Narrative Narrative: Kristine Damon is a 77 year old female Referred by Dr. Lorenzana for evaluation of light chain monoclonal gammopathy and hypercalcemia. She has history of left sided renal cell carcinoma and underwent left nephrectomy many years ago, I believe around 2004. In about 2009, she developed end-stage renal disease and has been on hemodialysis since then, currently [facility], [facility], [facility]. She has chronic left ankle wound with chronic osteomyelitis. She is under chronic care of Dr. Isidoro dsouza, and has received HBOT. She recently had orthopedic surgery on her left ankle and currently wears a wound VAC device. She has been on prolonged IV antibiotic therapy, although not currently. Recent laboratory workup on 04/11/2018 showed minor serum FLC abnormality, including cap of 5.4, lambda of 2.8, ratio 1.9. Serum IgG was slightly low at 582, with normal IgA and IgM. There was a suspicious band at 0.3 gram/deciliter on SPEP, but was characterized as IgG lambda by immunofixation. She has hypercalcemia, with calcium 12.3 on 04/07 11.3 on 04/21, and 10.9 on 04/25, with suppressed intact PTH 19 pg/mL. CC: Laure Mcneil MD Home Medications and Allergies Home Medications Medication Instructions Recorded Confirmed Type tetrahydrozoline [Visine] 1 gtt OP QDAY #0 12/14/11 04/30/18 History cholecalciferol (vitamin D3) 50,000 unit PO QWEEK #0 02/03/18 04/30/18 History magnesium hydroxide [Milk Of 30 ml PO QDAYP PRN #0 02/03/18 04/30/18 History Magnesia Concentrated] polyethylene glycol 3350 [Miralax] 17 gm PO QDAY #0 02/03/18 04/30/18 History metronidazole [Flagyl] 500 mg PO TID #60 02/05/18 04/30/18 Rx citalopram [Celexa] 0 PO QDAY #270 tab 03/01/18 04/30/18 Rx diazepam 10 mg tablet 30 mg PO HS #270 tab 04/30/18 Rx oxycodone-acetaminophen 5 mg-325 1 tab PO QIDP PRN #360 tab 04/30/18 Rx mg tablet diphenhydramine HCl [Benadryl] 25 mg PO Q4-6H PRN 06/05/18 06/05/18 History flaxseed oil 2,000 mg PO DAILY 06/05/18 06/05/18 History furosemide [Lasix] 80 mg PO DAILY 06/05/18 06/05/18 History Allergies Allergy/AdvReac Type Severity Reaction Status Date / Time iodine [IODINE] Allergy Severe IV CONTRAST Verified 04/30/18 10:35 acetaminophen [From TYLENOL] Allergy Mild LIMIT Verified 04/30/18 10:35 TYLENOL INTAKE, ONE KIDNEY cephalexin [CEPHALEXIN] Allergy Mild RASH Verified 04/30/18 10:35 Penicillins [PENICILLINS] Allergy Mild RASH Verified 04/30/18 10:35 ketorolac [KETOROLAC] Allergy Unknown NO TORADOL Verified 04/30/18 10:35 codeine [CODEINE] AdvReac Mild NAUSEA,VOMI Verified 04/30/18 10:35 TING,HALLUC INATIONS hydrocodone [HYDROCODONE] AdvReac Mild NAUSEA,VOMITING,DIDN'T Verified 04/30/18 10:35 WORK WELL TO CONTROL PAIN prednisone [PREDNISONE] AdvReac Mild SEVERE Verified 04/30/18 10:35 HALLUCINATIONS Medical History - Medical, Surgical, Family History Medical History: Medical History (Last Updated 06/05/18 @ 18:07 by Laure Mcneil MD) 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 (Acute) ESRD (end stage renal disease) on dialysis (Acute) History of renal cell cancer SBO (small bowel obstruction) - Social History Smoking Status: Current every day smoker (On and off past few years. 1-3 cigs a day when smoking.) Exam - Constitutional positive no acute distress - Routine HEENT Exam Head: Present: normocephalic, atraumatic - Routine Neck Exam Absent: lymphadenopathy - Routine Respiratory Exam Present: Clear to auscultation bilaterally - Routine Cardiovascular Exam Present: RRR - Routine Abdominal Exam Present: soft. Absent: tenderness - Routine Extremities Exam Absent: edema - Routine Neurological Exam Present: alert, oriented X3 - Routine Psychiatric Exam Present: normal affect Results - Imaging Additional studies: Procedures Thoracoscopic excision of lesion or tissue of lung (12/18/11) Assessment and Plan (1) Monoclonal gammopathy Current visit: Yes Status: Acute 06/05/18 18:09 She has minimal light chain monoclonal gammopathy and questionable monoclonal protein on SPEP. We will repeat these labs and will collect a 24 hr urine sample for Bence-Arzola proteins. I highly doubt this patient has significant plasma cell neoplasm. She may have a low risk MGUS. Once I see her in follow-up in 2 weeks, we will review labs and determine if a bone marrow biopsy is necessary or not. (2) Hypercalcemia associated with chronic dialysis Current visit: Yes Status: Acute 06/05/18 18:11 I think hypercalcemia is not expected in a patient with ESRD, and it slightly raises the concern over significance of monoclonal gammopathy. Again labs will be repeated, including 24 hr urine calcium measurement. Additionally, we will arrange the whole body skeletal survey. I think her chronic left ankle osteomyelitis may be a contributing factor.
--- NOTE | 2018-06-05 17:55 | P.CONONC_ITS ---
History of Present Illness - Data of Consult Consult date: 06/05/18 Requesting Physician: Lynda Lorenzana MD Primary Care Provider: Sagar Silva MD - Consult Narrative Narrative: Kristine Damon is a 77 year old female Referred by Dr. Lorenzana for evaluation of light chain monoclonal gammopathy and hypercalcemia. She has history of left sided renal cell carcinoma and underwent left nephrectomy many years ago, I believe around 2004. In about 2009 , she developed end-stage renal disease and has been on hemodialysis since then , currently [facility], [facility], [facility]. She has chronic left ankle wound with chronic osteomyelitis. She is under chronic care of Dr. Isidoro dsouza, and has received HBOT. She recently had orthopedic surgery on her left ankle and currently wears a wound VAC device. She has been on prolonged IV antibiotic therapy, although not currently. Recent laboratory workup on 04/11/2018 showed minor serum FLC abnormality, including cap of 5.4, lambda of 2.8, ratio 1.9. Serum IgG was slightly low at 582, with normal IgA and IgM. There was a suspicious band at 0.3 gram/ deciliter on SPEP, but was characterized as IgG lambda by immunofixation. She has hypercalcemia, with calcium 12.3 on 04/07 11.3 on 04/21, and 10.9 on 04/25, with suppressed intact PTH 19 pg/mL. CC: Laure Mcneil MD Home Medications and Allergies Home Medications Medication Instructions Recorded Confirmed Type tetrahydrozoline [Visine] 1 gtt OP QDAY #0 12/14/11 04/30/18 History cholecalciferol (vitamin D3) 50,000 unit PO QWEEK #0 02/03/18 04/30/18 History magnesium hydroxide [Milk Of 30 ml PO QDAYP PRN #0 02/03/18 04/30/18 History Magnesia Concentrated] polyethylene glycol 3350 [Miralax] 17 gm PO QDAY #0 02/03/18 04/30/18 History metronidazole [Flagyl] 500 mg PO TID #60 02/05/18 04/30/18 Rx citalopram [Celexa] 0 PO QDAY #270 tab 03/01/18 04/30/18 Rx diazepam 10 mg tablet 30 mg PO HS #270 tab 04/30/18 Rx oxycodone-acetaminophen 5 mg-325 1 tab PO QIDP PRN #360 tab 04/30/18 Rx mg tablet diphenhydramine HCl [Benadryl] 25 mg PO Q4-6H PRN 06/05/18 06/05/18 History flaxseed oil 2,000 mg PO DAILY 06/05/18 06/05/18 History furosemide [Lasix] 80 mg PO DAILY 06/05/18 06/05/18 History Allergies Allergy/AdvReac Type Severity Reaction Status Date / Time iodine [IODINE] Allergy Severe IV CONTRAST Verified 04/30/18 10:35 acetaminophen [From TYLENOL] Allergy Mild LIMIT Verified 04/30/18 10:35 TYLENOL INTAKE, ONE KIDNEY cephalexin [CEPHALEXIN] Allergy Mild RASH Verified 04/30/18 10:35 Penicillins [PENICILLINS] Allergy Mild RASH Verified 04/30/18 10:35 ketorolac [KETOROLAC] Allergy Unknown NO TORADOL Verified 04/30/18 10:35 codeine [CODEINE] AdvReac Mild NAUSEA,VOMI Verified 04/30/18 10:35 TING,HALLUC INATIONS hydrocodone [HYDROCODONE] AdvReac Mild NAUSEA,VOMITING,DIDN'T Verified 04/30/18 10:35 WORK WELL TO CONTROL PAIN prednisone [PREDNISONE] AdvReac Mild SEVERE Verified 04/30/18 10:35 HALLUCINATIONS Medical History - Medical, Surgical, Family History Medical History: Medical History (Last Updated 06/05/18 @ 18:07 by Laure Mcneil MD) 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 (Acute) ESRD (end stage renal disease) on dialysis (Acute) History of renal cell cancer SBO (small bowel obstruction) - Social History Smoking Status: Current every day smoker (On and off past few years. 1-3 cigs a day when smoking.) Exam - Constitutional positive no acute distress - Routine HEENT Exam Head: Present: normocephalic, atraumatic - Routine Neck Exam Absent: lymphadenopathy - Routine Respiratory Exam Present: Clear to auscultation bilaterally - Routine Cardiovascular Exam Present: RRR - Routine Abdominal Exam Present: soft. Absent: tenderness - Routine Extremities Exam Absent: edema - Routine Neurological Exam Present: alert, oriented X3 - Routine Psychiatric Exam Present: normal affect Results - Imaging Additional studies: Procedures Thoracoscopic excision of lesion or tissue of lung (12/18/11) Assessment and Plan (1) Monoclonal gammopathy Current visit: Yes Status: Acute 06/05/18 18:09 She has minimal light chain monoclonal gammopathy and questionable monoclonal protein on SPEP. We will repeat these labs and will collect a 24 hr urine sample for Bence-Arzola proteins. I highly doubt this patient has significant plasma cell neoplasm. She may have a low risk MGUS. Once I see her in follow- up in 2 weeks, we will review labs and determine if a bone marrow biopsy is necessary or not. (2) Hypercalcemia associated with chronic dialysis Current visit: Yes Status: Acute 06/05/18 18:11 I think hypercalcemia is not expected in a patient with ESRD, and it slightly raises the concern over significance of monoclonal gammopathy. Again labs will be repeated, including 24 hr urine calcium measurement. Additionally, we will arrange the whole body skeletal survey. I think her chronic left ankle osteomyelitis may be a contributing factor.
[2018-06-24 11:09] VITALS: BP 126/64; PULSE 59; RESP 18; TEMP 35.9; O2SAT 99
--- NOTE | 2018-06-24 11:29 | P.PNONC_ITS ---
Assessment and Plan (1) Monoclonal gammopathy Current visit: Yes Status: Acute (2) Hypercalcemia associated with chronic dialysis Current visit: Yes Status: Acute - Time Spent with Patient IMPRESSION: 1. Monoclonal gammopathy, IgG lambda, 0.2 g/dl. 2. Hypercalcemia. 3. Left inferior ramus lytic bone lesion on the bone survey June 11, 2018. 4. ESRD on hemodialysis, M-W-F. 5. History of renal cell carcinoma, status post left nephrectomy in approximately 2004. 6. Chronic wound and osteomyelitis, left ankle. I reviewed her clinic chart, past in current lab and imaging results in other documents at today's visit. Findings are consistent with MGUS, though with some additional concerns as noted previously by Dr. Mcneil as well. These include her hypercalcemia as well as the possible lytic bone lesion seen on current skeletal survey. She is not currently anemic though this may be obscured by concomitant use of JEANINE. I reviewed the findings and clinical concerns in detail with her and her niece. While certainly not conclusive for underlying myeloma, I do believe there is sufficient indication to proceed with bone marrow aspirate and biopsy in her case. I reviewed the procedure and potential risks. She is willing to proceed though she and her niece wonder if it would be reasonable to monitor with lab work and imaging and defer the bone marrow biopsy at least initially. I would also like to review the lab and imaging results ordered by Dr. Mcneil and get his thoughts as well. They will call back later this week. We reviewed signs and symptoms of active myeloma. They voiced understanding of these concerns and will monitor closely regardless of our plan. PLAN: 1. We will review results as noted. 2. Consider bone marrow aspirate and biopsy. 3. Follow up with other providers as planned. 4. Return appointment in 2 months. 5. CBC, CMP, SPEP with immunofixation, serum free light chains prior to the visit. DICTATED BY TABITHA STOKES MD MEDICAL ONCOLOGY AND HEMATOLOGY PN -Subjective Interval history: IDENTIFICATION: This is a 77-year-old woman with end-stage renal disease on hemodialysis who was seen recently in consultation by Dr. Mcneil on June 05, 2018 for evaluation of monoclonal gammopathy and hypercalcemia. INTERVAL HISTORY: She returns today with her niece, Lianna, to review recent lab work ordered by Dr. Mcneil. She is a new patient for me and scheduled in a routine follow-up appointment today. She was referred here by Dr. Lorenzana for evaluation of monoclonal gammopathy and hypercalcemia. She has a past history of renal cell carcinoma and underwent a left nephrectomy many years ago, approximately 2004 she believes. She developed end-stage renal disease and has been on hemodialysis since approximately 2009. Currently dialyze is on Saturday. She also has a chronic wound on the left ankle with chronic osteomyelitis, managed by Dr. Isidoro Sifuentes and has received HBOT. Lab work on April 11, 2018 showed mildly elevated kappa free light chains 5.41, lambda 2.84 and ratio 1.90. Quantitative IgG low at 582 with normal IgA 148 and IgM 113. SPEP showed a suspicious band at 0.3 gm/dl, with immunofixation showing IgG lambda by report. Other labs notable for calcium 12.3 on April 07, 2018 and 10.9 on April 25, 2018 with intact PTH 19 pg/ml. She returns today after additional lab work and skeletal bone survey. - Additional ROS Additional ROS: Review of systems: General: No fever, night sweats or recent weight loss. HEENT: Negative. Respiratory: Denies productive cough or dyspnea. Cardiac: No chest pain, PND or orthopnea. GI: Negative. : Stable. Musculoskeletal: No new bone pain , specifically no pain in the pelvic bones or hips. Neurologic: Negative. Results - Imaging Additional studies: Procedures Thoracoscopic excision of lesion or tissue of lung (12/18/11) Home Medications and Allergies Home Medications Medication Instructions Recorded Confirmed Type tetrahydrozoline [Visine] 1 gtt OP QDAY #0 12/14/11 04/30/18 History cholecalciferol (vitamin D3) 50,000 unit PO QWEEK #0 02/03/18 04/30/18 History magnesium hydroxide [Milk Of 30 ml PO QDAYP PRN #0 02/03/18 04/30/18 History Magnesia Concentrated] polyethylene glycol 3350 [Miralax] 17 gm PO QDAY #0 02/03/18 04/30/18 History metronidazole [Flagyl] 500 mg PO TID #60 02/05/18 04/30/18 Rx citalopram [Celexa] 0 PO QDAY #270 tab 03/01/18 04/30/18 Rx diazepam 10 mg tablet 30 mg PO HS #270 tab 04/30/18 Rx oxycodone-acetaminophen 5 mg-325 1 tab PO QIDP PRN #360 tab 04/30/18 Rx mg tablet diphenhydramine HCl [Benadryl] 25 mg PO Q4-6H PRN 06/05/18 06/05/18 History flaxseed oil 2,000 mg PO DAILY 06/05/18 06/05/18 History furosemide [Lasix] 80 mg PO DAILY 06/05/18 06/05/18 History Allergies Allergy/AdvReac Type Severity Reaction Status Date / Time iodine [IODINE] Allergy Severe IV CONTRAST Verified 04/30/18 10:35 acetaminophen [From TYLENOL] Allergy Mild LIMIT Verified 04/30/18 10:35 TYLENOL INTAKE, ONE KIDNEY cephalexin [CEPHALEXIN] Allergy Mild RASH Verified 04/30/18 10:35 Penicillins [PENICILLINS] Allergy Mild RASH Verified 04/30/18 10:35 ketorolac [KETOROLAC] Allergy Unknown NO TORADOL Verified 04/30/18 10:35 codeine [CODEINE] AdvReac Mild NAUSEA,VOMI Verified 04/30/18 10:35 TING,HALLUC INATIONS hydrocodone [HYDROCODONE] AdvReac Mild NAUSEA,VOMITING,DIDN'T Verified 04/30/18 10:35 WORK WELL TO CONTROL PAIN prednisone [PREDNISONE] AdvReac Mild SEVERE Verified 04/30/18 10:35 HALLUCINATIONS Exam - Constitutional positive no acute distress, positive thin, positive cooperative - Routine HEENT Exam Head: Present: normocephalic, atraumatic Eye: Present: EOMI, PERRL ENT: Present: mucous membranes moist, oropharynx clear - Routine Neck Exam Present: supple. Absent: JVD - Routine Extremities Exam Absent: cyanosis, clubbing, edema - Routine Skin Exam Present: intact. Absent: cyanosis, erythema, jaundice, rash, ecchymosis - Routine Neurological Exam Present: alert, oriented X3, moving all extremities, normal speech - Routine Psychiatric Exam Present: normal affect, normal thought process, cooperative, good judgment
[2018-08-21 12:02] VITALS: BP 127/64; PULSE 62; RESP 18; TEMP 36.4; O2SAT 99
--- NOTE | 2018-08-21 12:10 | P.PNONC_ITS ---
PN -Subjective Interval history: Chief Complaint: 77-year-old woman with ESRD on HD with suspicious MGUS versus multiple myeloma here for follow-up visit. History of Present Illness: Mrs. Alarcon is a 77-year-old female with remote history of left kidney renal cell carcinoma status post left radical nephrectomy approximately in 2004. She developed end-stage renal disease and has been on hemodialysis since approximately 2009. Currently she has been followed by Dr. Lorenzana. In January of 2018 patient developed hypercalcemia. In March 2018, serum protein electrophoresis revealed 0.3 gram/deciliter of abnormal protein band which was categorized as IgG lambda by immunofixation. Despite the elevated calcium level , patient has a suppressed intact PTH of 19 pg/ml. Therefore patient was referred to Hematology Oncology and was evaluated by Dr. Mcneil on June 05, 2018. She underwent skeletal survey on June 11, 2018 which showed a left inferior right almost lytic bone lesion. And repeat serum protein electrophoresis again identified the monoclonal immunoglobulin G lambda 0.2 grams/deciliter. Therefore bone marrow aspiration and biopsy was recommended. Patient presents here today for scheduled follow-up visit. Patient came in here today accompanied by her niece. She said that her energy is so-so. However the patient said that she is able to do all the house work every day except the yard work. Her niece reported that the patient is doing about 280 push-ups against the wall every day. She denies new bone pain, but admit chronic bone pain and is taking pain meds oxycodone. - Patient Self-Reported Symptoms SR Skin issues: Skin lesions or moles SR Gastrointestinal issues: Poor or no appetite, Nausea SR Musculoskeletal issues: Joint pain or swelling, Back or neck pain, Difficulty walking, Bone pain - Additional ROS All systems PM: reviewed and no additional remarkable complaints except as stated Home Medications and Allergies Home Medications Medication Instructions Recorded Confirmed Type tetrahydrozoline [Visine] 1 gtt OP QDAY #0 12/14/11 04/30/18 History magnesium hydroxide [Milk Of 30 ml PO QDAYP PRN #0 02/03/18 04/30/18 History Magnesia Concentrated] polyethylene glycol 3350 [Miralax] 17 gm PO QDAY #0 02/03/18 04/30/18 History citalopram [Celexa] 0 PO QDAY #270 tab 03/01/18 04/30/18 Rx diphenhydramine HCl [Benadryl] 25 mg PO Q4-6H PRN 06/05/18 06/05/18 History flaxseed oil 2,000 mg PO DAILY 06/05/18 06/05/18 History furosemide [Lasix] 80 mg PO DAILY 06/05/18 06/05/18 History diazepam 10 mg tablet 30 mg PO HS #270 tab 07/31/18 Rx oxycodone-acetaminophen 5 mg-325 1 tab PO QIDP PRN #360 tab 07/31/18 Rx mg tablet Lactobacillus acidophilus 08/21/18 History [Probiotic] multivitamin [Daily-Julee] 08/21/18 History Allergies Allergy/AdvReac Type Severity Reaction Status Date / Time iodine [IODINE] Allergy Severe IV CONTRAST Verified 04/30/18 10:35 acetaminophen [From TYLENOL] Allergy Mild LIMIT Verified 04/30/18 10:35 TYLENOL INTAKE, ONE KIDNEY cephalexin [CEPHALEXIN] Allergy Mild RASH Verified 04/30/18 10:35 Penicillins [PENICILLINS] Allergy Mild RASH Verified 04/30/18 10:35 ketorolac [KETOROLAC] Allergy Unknown NO TORADOL Verified 04/30/18 10:35 codeine [CODEINE] AdvReac Mild NAUSEA,VOMI Verified 04/30/18 10:35 TING,HALLUC INATIONS hydrocodone [HYDROCODONE] AdvReac Mild NAUSEA,VOMITING,DIDN'T Verified 04/30/18 10:35 WORK WELL TO CONTROL PAIN prednisone [PREDNISONE] AdvReac Mild SEVERE Verified 04/30/18 10:35 HALLUCINATIONS Exam Vital signs: Last Vital Signs Temp 97.5 F L 08/21/18 12:02 Pulse 62 08/21/18 12:02 Resp 18 08/21/18 12:02 BP 127/64 08/21/18 12:02 Pulse Ox 99 08/21/18 12:02 Narrative: Constitutional: Well developed, thin, not in any acute respiratory distress, average body habitus, well groomed, pleasant and cooperative. HEENT: Normocephalic atraumatic. Extraocular muscle movement intact. Pupils are round, equal and reactive to light and accommodations. Anicteric sclera. No hearing difficulty; Oral mucus membrane moist and without ulcers. Neck: Supple, symmetrical, and tracheal midline; No palpable thyromegaly and no palpable lymph nodes. Respiratory: No use of accessory muscles. Clear to auscultation, and no wheezes or rales or rubs. Cardiovascular: Regular rate and rhythm, S1 and S2 normal, no murmurs gallops or rubs. No JVD. No pitting edema of lower extremities. Abdomen: Soft, nontender, non-distended, bowel sounds normal, no palpable organomegaly, no hernia, no palpable masses. Lower extremities: No palpable pedal edema. Lymphatic: no palpable lymph nodes in the neck, axillae, or groins. Musculoskeletal: normal gait and station, no clubbing, no cyanosis, no pitting edema. Skin: no rashes, no ulcers, no petechiae Neurological: Awake and alert and oriented x3. CN II-XII grossly intact. No focal motor or sensory deficit. Psychiatric: Good judgment, good insight, normal affect, normal thought process , cooperative, no depression, no anxiety. Results - Labs Reviewed Assessment and Plan (1) Monoclonal gammopathy She has persistent elevated serum IgG lambda since May of 2018. The level has been stable. However she has history of hypercalcemia with suppressed PTH level. In addition patient has a lytic lesion in the left ramus. Taken together , it is suspicious for plasma cell disorder. I talked with the patient that it is necessary to differentiate MGUS from multiple myeloma. The patient has end stage renal disease that makes interpretation of the lab results more difficult. I agree with Dr. Hernandez and Dr. Mcneil that a bone marrow aspiration and biopsy will be helpful in further clarify if the patient has any plasma cell disorder. After discussing with the patient, patient is willing to proceed with bone marrow aspiration biopsy, but would like to have it done at some time in September of this year. We will schedule the bone marrow around date of patient' s choice. On the day of the bone marrow study, I will repeat CBC, CMP, and multiple myeloma panel. (2) Hypercalcemia associated with chronic dialysis The calcium level has been normalized. Patient will continue follow-up with for hemodialysis. (3) ESRD (end stage renal disease) on dialysis On HD Saturday and Saturday. Dr. Lorenzana following.
--- NOTE | 2018-09-16 15:51 | PC.NURSE ---
Spoke with pt today regarding BMBX scheduled with you on 10/02. She is very nervous and was given clearance by her urologist for a mild relaxant prior to her procedure. If you would like, we could give her 0.5-1mg Ativan IV/PO just prior to you starting. Please issue an order in advance so we will be prepared to aid her in this procedure.
--- NOTE | 2018-09-22 09:50 | PC.NURSE ---
Called pt to inform her that she will need to come in earlier for her appt on 10/02 so that an IV can be started, labs drawn and IV Ativan administered to help decrease some of her anxiety associated with having the procedure. No answer so left message for pt to call triage back to discuss this.
--- NOTE | 2018-10-02 | PATH_ITS ---
[facility] Accession Number: [id number] . 01 Material submitted: . PART A: BONE MARROW CORE PART B: BONE MARROW CORE PART C: BONE MARROW ASPIRATE . 01 Clinical history: . 77 year-old female with remote history of left renal cell carcinoma, s/p left nephrectomy. Now with end-stage renal disease on hemodialysis since 2009, hypercalcemia, and an IgG-lambda monoclonal gammopathy of low amplitude (0.2 g/dL in 05/2018, per report). MGUS vs. MM; Left hip biopsy . 01 Diagnosis: BONE MARROW, CORE BIOPSY, ASPIRATE, AND CLOT SECTION: 1. Normocellular marrow for age (40% cellularity) with trilineage hematopoiesis and focal lambda-skewing among the non-expanded marrow plasma cells (see Comments) 2. No evidence of amyloid deposition on a Congo red special stain 3. No evidence of myelodysplasia or involvement by lymphoma 4. Increased marrow storage iron by special stain, with no ring sideroblasts identified 5. No significant marrow reticulin fibrosis (MF 0 out of 3) . PERIPHERAL BLOOD: 1. Erythrocyte macrocytosis without significant poikilocytosis 2. Essentially normal WBC and platelet morphology . FLOW CYTOMETRIC ANALYSIS ([id number]): Bone marrow, aspirate: 1. No definite abnormal plasma cell population identified (see Flow Comment 1) 2. No abnormal B-cell or T-cell population identified 3. Mild immunophenotypic alterations on the maturing granulocytes (see Flow Comment 2) . 10/13/2018 . 01 Comment: Plasma cells are not expanded, comprising only about 2% of the marrow cellularity based on CD138 immunohistochemistry performed on the well-sampled A1 core biopsy. However, in one region of the biopsy, a subset of plasma cells with distinct skewing toward lambda light chain expression and coexpression of weak CD56 is identified, in a background of otherwise polytypic plasma cells. This finding, in correlation with the patient's reported low-level IgG-lambda monoclonal gammopathy, is concerning for an early plasma cell dyscrasia such as an evolving non-IgM monoclonal gammopathy of undetermined significance (MGUS). The patient's history of end-stage renal disease and hypercalcemia secondary to renal cell carcinoma with subsequent nephrectomy and hemodialysis is noteworthy; so complete clinical and radiologic correlation will be required to determine the most appropriate clinicopathologic designation for this process at this time point. . As requested, a prognostic myeloma FISH panel was also performed on a plasma cell-enriched sample of the marrow aspirate, which is negative for the genomic abnormalities evaluated. The complete FISH results may be referenced in [id number]. . FLOW CYTOMETRY COMMENTS: . 1. By flow cytometry, plasma cells comprise only 0.07% of the total viable leukocytes following erythroid lysis. However, they have a slightly reversed cytoplasmic kappa:lambda ratio of 0.9, with otherwise normal intermediate-level CD45 and CD19, low-intermediate CD138, and high-level CD38, without definitive or uniform aberrant coexpression of CD56. Correlation with the morphologic and immunohistochemical features of the concurrently submitted marrow specimen, and with serum protein electrophoresis (SPEP), immunofixation, and possibly serum free light chain studies, will be required to more definitively exclude involvement by a plasma cell dyscrasia/neoplasm. Note that complete Hematopathology evaluation of the concurrently submitted marrow specimen will be reported separately in [id number]. There is no immunophenotypic evidence of involvement by a B-cell or T-cell non-Hodgkin lymphoma. . 2. The maturing granulocytes exhibit a slightly dyssynchronous CD13/CD16 maturational pattern imparted by unusually low-level CD13 on the immature forms, but no significant immunophenotypic abnormalities are identified on the myeloid cell populations. The CD34+ myeloid blasts are not expanded and have a generally normal pattern of antigen expression. Definitive evaluation for potential marrow involvement by a low-grade myeloid stem cell neoplasm, e.g. a myelodysplastic syndrome (MDS) or chronic phase myeloproliferative neoplasm (MPN), will require careful correlation with the concurrent bone marrow morphology and ancillary molecular studies, including routine cytogenetic karyotyping. . Flow cytometric analysis after lysis of the erythroid elements indicates that the viable leukocytes include 11% lymphocytes, 4.7% monocytes, 80% granulocytes, 0.8% CD34+ blasts, 1.5% normal B-cell precursors/hematogones, and 0.07% plasma cells. The lymphocytes include 12% B-cells, 74% T-cells, and 13.5% NK-cells. The mature B-cells present have a normal kappa:lambda ratio of 2.2. The T-cells have a normal CD4:CD8 ratio of 2.4. The plasma cells have a cytoplasmic kappa:lambda ratio of 0.9. . 01 Electronically signed: . Ирина Pradhan MD, Pathologist NPI- [id number] . 01 Gross description: . Received three formalin-filled containers, each arbitrarily designated with the patient's name. No sources are labeled on the containers: . A. In a container arbitrarily designated A, is a 0.3 cm in diameter by 1.7 cm in length portion of core, entirely submitted in cassette A and will be placed in Decal for softening. B. In a container arbitrarily designated B, is a 0.2 cm in diameter by 0.5 cm in length, cylindrical-shaped portion of possible core and clotted blood, entirely submitted in cassette B and will be placed in Decal for softening. C. In a container arbitrarily designated C, are multiple aggregates of blood which aggregate to 2.5 x 2.5 x 1.5 cm. The specimen is filtered and entirely submitted in cassettes C1-C7. (DC:[id number]) /R . 01 Microscopic: . CORE BIOPSY AND CLOT SECTION: . H/E-stained sections of the bone marrow core biopsy in block A1 reveal a large-gauge, intact core of trabecular bone and marrow that appears normocellular for age, estimated at 40% cellularity. H/E-stained sections of the bone marrow core biopsy in block B1 reveal a typical-gauge, intact core of trabecular bone and marrow with similar features to the A1 core. The marrow exhibits trilineage hematopoiesis without an obvious atypical lymphoid or plasmacytic infiltrate on the H/E levels. Megakaryocytes appear present in normal numbers, and are without significant morphologic atypia. Very rare, small megakaryocyte clusters of 3 megakaryocytes are seen. There is no evidence of an expanded blast or immature cell population. H/E-stained sections of the clot (blocks C1-C7) reveal scattered fragments of blood clot and cellular marrow particles reflective of the core biopsy. A single, small lipogranuloma is seen in the C5 clot section. . ASPIRATE SMEARS AND TOUCH PREPARATIONS: . Some of the Nelson-stained aspirate smears are particulate and adequately cellular for evaluation. Touch preparations of the core biopsy are hemodilute, but also include scattered hematopoietic precursors. The erythroid and myeloid precursors are present in relatively normal proportion, and display complete maturation without significant dysplastic or megaloblastoid features. Megakaryocytes are normal in number and the vast majority have normal morphology without dysplastic features. Only very rare small, hypolobate megakaryocytes are identified. Lymphocytes and plasma cells are present in normal numbers, and have no significant cytologic atypia. Occasional iron-laden macrophages are identified. There is no obvious increase in hemophagocytic histiocytes or mast cells. A differential count of 500 marrow hematopoietic cells from the cellular aspirate smears reveals 56.2% myeloid precursors, 33.8% erythroid precursors, 8.8% lymphocytes, and 1.2% plasma cells. . SPECIAL STAINS: . A reticulin stain performed on the B1 core biopsy reveals no significant marrow reticulin fibrosis (WHO fibrosis grade 0 out of 3). An iron stain performed on a particulate aspirate smear indicates an elevated amount of stainable marrow storage iron is present. No ring sideroblasts are seen. There is no evidence of amyloid deposition on a Congo red special stain performed on the A1 core biopsy (no apple green birefringence is identified upon polarization). . IMMUNOHISTOCHEMISTRY*: . Select immunohistochemical studies were performed on the core biopsy (block A1), with appropriate positive and negative controls, to help enumerate the cell lineages. CD138+ plasma cells comprise only 2% of the total marrow cells; however, focally within the A1 core, a subset of plasma cells exhibits skewing toward lambda light chain expression based on kappa and lambda light chain immunostains. The subset of lambda-expressing plasma cells also coexpresses CD56 with weak intensity. These lambda-expressing plasma cells do not form atypical confluent clusters or sheets of cells, but are present as a notable collection of individual cells and small loose groups of cells in a relatively localized region of the marrow core. An additional subset of polytypic plasma cells is also present in the background. CD34+ blasts comprise 1-2% of the marrow cells. CD15+ myelomonocytic precursors and CD71+ erythroid precursors comprise about 65-70% and 20-25% of the marrow cells, respectively. An immunostain for vWF highlights the megakaryocytes. An immunostain for broad-spectrum DARLEEN keratins reveals no evidence of metastatic carcinoma. . PERIPHERAL BLOOD: . A Nelson-stained peripheral blood smear reveals the leukocytes to be normal in number, and a differential count of 300 cells reveals 56% neutrophils, 34.7% lymphocytes, 6% monocytes, 3% eosinophils, and 0.3% basophils. The circulating neutrophils have appropriate nuclear segmentation and cytoplasmic granularity. Per the CBC indices, the erythrocytes are normal in number and volume, and macrocytic. There is no significant polychromasia or erythrocyte anisopoikilocytosis. Platelets are normal in number and generally well-granulated. . * Technical note: These tests and their performance characteristics have been determined by [facility] [employer]. They have not been cleared or approved by the U.S. Food and Drug Administration. The FDA has determined that such clearance or approval is not necessary. These tests are used for clinical purposes, and should not be regarded as investigational or for research. . . 01 Pathologist provided ICD-10: D47.2, D75.89, N18.6 . 01 CPT . 666370, 419991, 609673, 015572, 815428, 250281, 044771, 150426, 092320, 458532, M67000, B09389 Specimen Comment: A duplicate report has been generated due to demographic updates. Performed at: [address] [facility], [place], [place] [id number] MD Gustavo Love MD Phone: [phone]
[2018-10-02 14:15] LABS: Add Manual Diff / Slide Review NO; Basophils Percent Auto 0.8 % (0-2); Eosinophils Percent Auto 1.9 % (2-4); Hematocrit 35.3 % (36-46); Hemoglobin 11.8 g/dL (12.0-16.0); Lymphocytes Percent Auto 31.3 % (25-40); Mean Corpuscular HGB Conc 33.4 % (30-36); Mean Corpuscular Hemoglobin 33.4 PG (26-34); Mean Corpuscular Volume 100.1 fL (80-100); Neutrophils Absolute Auto 4000 /uL (3000-5900); Platelet Count 290 X10^3/uL (150-400); Red Blood Cell Count 3.52 X10^6/uL (4.0-5.2); Red Cell Distribution Width 12.4 % (11.6-14.8); White Blood Cell Count 6.8 X10^3/uL (4.5-11.0)
[2018-10-02] MEDS: LORazepam 2 MG/ML SYRINGE 0.5 MG IV (14:29)
[2018-10-02 14:33] LABS: Alanine Aminotransferase 50 IU/L (9-52); Albumin 4.2 g/dL (3.5-5.0); Albumin Globulin Ratio 1.8 (1.0-2.8); Alkaline Phosphatase 155 U/L (38-126); Aspartate Aminotransferase 50 IU/L (14-36); BUN Creatinine Ratio 11.2 (6-22); Bilirubin Total 0.2 mg/dL (0.2-1.3); Blood Urea Nitrogen 28 mg/dL (7-17); Carbon Dioxide 38 mmol/L (22-32); Chloride 94 mmol/L (98-107); Estimated Glomerular Filt Rate 18.8 mL/min (>60); Globulin 2.3 g/dL (1.7-4.1); Glucose 80 mg/dL (80-110); HEMOLYSIS < 15 (0-50); Sodium 140 mmol/L (137-145); Total Protein 6.5 g/dL (6.3-8.2)
--- NOTE | 2018-10-02 15:28 | ONC.PROCEDUR ---
Date of procedure: 10/02/18 Diagnosis: MGUS vs MM Onc Bone Marrow: bone marrow biopsy and aspiration Procedure: Indication: Elevated monoclonal protein in the peripheral blood suspicious for MGUS versus multiple myeloma. Informed Consent: Signed before the procedure. The indications and the potential complications were explained to the patient. I talked with them that potential complications included but limited to pain, swelling, bleeding, infection. Procedure details: The patient was instructed to lie on her left side. Right posterior iliac crest were prepped draped and sterilized with Betadine. Bone marrow aspirate needle was inserted without any difficulties after anesthesia with 2% lidocaine. A sample of about 25 cc was aspirated and handed out over to the table. There after I inserted a bone marrow biopsy needle. A 3 cm long core biopsy sample was obtained. Patient tolerated the procedure well. I will have the patient come back in 2 weeks for follow-up of bone marrow aspiration and biopsy pathology report.
[2018-10-02 15:41] LABS: Lactate Dehydrogenase 616 U/L (313-618)
--- NOTE | 2018-10-02 16:07 | ONC.SCHED ---
PATHOLOGY PROGRESS: Bone Marrow Aspirate Evaluation/MM Profile and FISH ordered today. Await results.
[2018-10-03 08:18] VITALS: BP 113/56; PULSE 63; RESP 18; TEMP 36.8; O2SAT 98
[2018-10-04 13:02] LABS: Immunoglobulin A 136 mg/dL (81-463); Immunoglobulin G, Quantitative 654 mg/dL (694-1618); Immunoglobulin M, Quantitative 113 mg/dL (48-271)
[2018-10-04 14:08] LABS: Free Kappa Light Chain 43.1 mg/L (3.3-19.4); Free Kappa/ Lambda Ratio 1.71 (0.26-1.65); Free Lambda 25.2 mg/L (5.7-26.3)
[2018-10-04 15:45] LABS: Beta-2-Microglobulin 8.14 mg/L (< 2.52)
[2018-10-06 11:49] LABS: Abnormal Protein Band 1 0.1 g/dL (NONE DETECTED); Albumin 4.1 g/dL (3.8-4.8); Alpha 1 Globulin 0.3 g/dL (0.2-0.3); Alpha 2 Globulin 0.8 g/dL (0.5-0.9); Beta 1 Globulin 0.3 g/dL (0.4-0.6); Gamma Globulin 0.7 g/dL (0.8-1.7); Protein, Total 6.5 g/dL (6.1-8.1)
[2018-10-16 11:55] VITALS: BP 133/66; PULSE 65; RESP 18; TEMP 36.7; O2SAT 97
--- NOTE | 2018-10-16 12:49 | ONC.PN ---
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 She presents here today for follow-up of the recent bone marrow aspiration biopsy report. She underwent bone marrow aspiration biopsy on 10/02/2018. And the final pathology showed normal cellular marrow for age with trilineage hematopoiesis and focal lambda-scheduling among the non expanded marrow plasma cells, no evidence of amyloid deposition and a Congo red special stain, no evidence of myelodysplasia or involvement by lymphoma, no significant marrow reticulin fibrosis, increased marrow storage iron by special stain with no ringed sideroblasts identified. And flow cytometry showed no definite abnormal plasma cell population identified. No abnormal B-cell or T-cell population identified. Mild immunophenotypic after a garcia on the maturing granulocytes identified. History of Present Illness: Mrs. Alarcon is a 77-year-old female with remote history of left kidney renal cell carcinoma status post left radical nephrectomy approximately in 2004. She developed end-stage renal disease and has been on hemodialysis since approximately 2009. Currently she has been followed by Dr. Lorenzana. In January of 2018 patient developed hypercalcemia. In March 2018, serum protein electrophoresis revealed 0.3 gram/deciliter of abnormal protein band which was categorized as IgG lambda by immunofixation. Despite the elevated calcium level, patient has a suppressed intact PTH of 19 pg/ml. Therefore patient was referred to Hematology Oncology and was evaluated by Dr. Mcneil on June 05, 2018. She underwent skeletal survey on June 11, 2018 which showed a left inferior right almost lytic bone lesion. And repeat serum protein electrophoresis again identified the monoclonal immunoglobulin G lambda 0.2 grams/deciliter. Therefore bone marrow aspiration and biopsy was recommended. . - Patient Self-Reported Symptoms SR Constitution: Fatigue/Malaise SR ears, nose, mouth, throat issues: Congestion SR respiratory issues: Mucous SR Skin issues: Skin lesions or moles SR Gastrointestinal issues: Poor or no appetite, Nausea SR Musculoskeletal issues: Back or neck pain, Bone pain SR Neuro issues: Numbness or tingling SR Hematologic issues: Bleeding/bruising SR Endocrine issues: Excessive thirst - Additional ROS All systems PM: reviewed and no additional remarkable complaints except as stated Home Medications and Allergies Home Medications Medication Instructions Recorded Confirmed Type tetrahydrozoline [Visine] 1 gtt OP QDAY #0 12/14/11 10/03/18 History magnesium hydroxide [Milk Of 30 ml PO DAILY #0 02/03/18 10/03/18 History Magnesia Concentrated] polyethylene glycol 3350 [Miralax] 17 gm PO QDAY PRN #0 02/03/18 10/03/18 History diphenhydramine HCl [Benadryl] 25 mg PO Q4-6H PRN 06/05/18 10/03/18 History flaxseed oil 2,000 mg PO DAILY 06/05/18 10/03/18 History furosemide [Lasix] 40 mg PO BID 06/05/18 10/03/18 History Lactobacillus acidophilus 1 cap PO DAILY 08/21/18 10/03/18 History [Probiotic] multivitamin [Daily-Julee] 1 tab PO DAILY 08/21/18 10/03/18 History diazepam 10 mg tablet 30 mg PO HS #270 tab 09/17/18 10/03/18 Rx oxycodone-acetaminophen 5 mg-325 1 tab PO QIDP PRN #360 tab 09/17/18 10/03/18 Rx mg tablet citalopram 60 mg PO DAILY 09/25/18 10/03/18 History sod phos di, mono-K phos mono 2 tab PO BID 09/25/18 10/03/18 History [P-Rlvc-Xlrrazj] Allergies Allergy/AdvReac Type Severity Reaction Status Date / Time iodine [IODINE] Allergy Severe IV CONTRAST Verified 09/25/18 10:52 acetaminophen [From TYLENOL] Allergy Mild LIMIT Verified 09/25/18 10:52 TYLENOL INTAKE, ONE KIDNEY cephalexin [CEPHALEXIN] Allergy Mild RASH Verified 09/25/18 10:52 Penicillins [PENICILLINS] Allergy Mild RASH Verified 09/25/18 10:52 ketorolac [KETOROLAC] Allergy Unknown NO TORADOL Verified 09/25/18 10:52 codeine [CODEINE] AdvReac Mild NAUSEA,VOMI Verified 09/25/18 10:52 TING,HALLUC INATIONS hydrocodone [HYDROCODONE] AdvReac Mild NAUSEA,VOMITING,DIDN'T Verified 09/25/18 10:52 WORK WELL TO CONTROL PAIN prednisone [PREDNISONE] AdvReac Mild SEVERE Verified 09/25/18 10:52 HALLUCINATIONS Exam Vital signs: Last Vital Signs Temp 98.0 F 10/16/18 11:55 Pulse 65 10/16/18 11:55 Resp 18 10/16/18 11:55 BP 133/66 10/16/18 11:55 Pulse Ox 97 10/16/18 11:55 ECOG 1 Narrative: Constitutional: Well developed, thin, not in any acute respiratory distress, average body habitus, well groomed, pleasant and cooperative. HEENT: Normocephalic atraumatic. Extraocular muscle movement intact. Pupils are round, equal and reactive to light and accommodations. Anicteric sclera. No hearing difficulty; Oral mucus membrane moist and without ulcers. Neck: Supple, symmetrical, and tracheal midline; No palpable thyromegaly and no palpable lymph nodes. Respiratory: No use of accessory muscles. Clear to auscultation, and no wheezes or rales or rubs. Cardiovascular: Regular rate and rhythm, S1 and S2 normal, no murmurs gallops or rubs. No JVD. No pitting edema of lower extremities. Abdomen: Soft, nontender, non-distended, bowel sounds normal, no palpable organomegaly, no hernia, no palpable masses. Lower extremities: No palpable pedal edema. Lymphatic: no palpable lymph nodes in the neck, axillae, or groins. Musculoskeletal: normal gait and station, no clubbing, no cyanosis, no pitting edema. Skin: no rashes, no ulcers, no petechiae Neurological: Awake and alert and oriented x3. CN II-XII grossly intact. No focal motor or sensory deficit. Psychiatric: Good judgment, good insight, normal affect, normal thought process, cooperative, no depression, no anxiety. Results - Labs Laboratory Last Values WBC 6.8 X10^3/uL (4.5-11.0) 10/02/18 13: RBC 3.52 X10^6/uL (4.0-5.2) L 10/02/18 13:22 Hgb 11.8 g/dL (12.0-16.0) L 10/02/18 13:22 Hct 35.3 % (36-46) L 10/02/18 13:22 MCV 100.1 fL (80-100) H 10/02/18 13:22 MCH 33.4 PG (26-34) 10/02/18 13:22 MCHC 33.4 % (30-36) 10/02/18 13:22 RDW 12.4 % (11.6-14.8) 10/02/18 13:22 Plt Count 290 X10^3/uL (150-400) 10/02/18 13:22 Neut % (Auto) 59.0 % (50-75) 10/02/18 13:22 Lymph % (Auto) 31.3 % (25-40) 10/02/18 13:22 Brooke % (Auto) 7.0 % (3-14) 10/02/18 13:22 Eos % (Auto) 1.9 % (2-4) L 10/02/18 13:22 Baso % (Auto) 0.8 % (0-2) 10/02/18 13:22 Neut # (Auto) 4000 /uL (5022-1230) 10/02/18 13:22 Sodium 140 mmol/L (137-145) 10/02/18 13:22 Potassium 4.0 mmol/L (3.4-5.1) 10/02/18 13:22 Chloride 94 mmol/L (98-107) L 10/02/18 13:22 Carbon Dioxide 38 mmol/L (22-32) H 10/02/18 13:22 BUN 28 mg/dL (7-17) H 10/02/18 13:22 Creatinine 2.50 mg/dL (0.52-1.04) H 10/02/18 13:22 Estimated GFR 18.8 mL/min (>60) L 10/02/18 13:22 BUN/Creatinine Ratio 11.2 (6-22) 10/02/18 13:22 Glucose 80 mg/dL (80-110) 10/02/18 13:22 Calcium 9.0 mg/dL (8.4-10.2) 10/02/18 13:22 Total Bilirubin 0.2 mg/dL (0.2-1.3) 10/02/18 13:22 AST 50 IU/L (14-36) H 10/02/18 13:22 ALT 50 IU/L (9-52) 10/02/18 13:22 Alkaline Phosphatase 155 U/L (38-126) H 10/02/18 13:22 Lactate Dehydrogenase 616 U/L (313-618) 10/02/18 13:22 Serum Total Protein 6.5 g/dL (6.1-8.1) 10/02/18 13:22 Total Protein 6.5 g/dL (6.3-8.2) 10/02/18 13:22 Albumin 4.1 g/dL (3.8-4.8) 10/02/18 13:22 Globulin 2.3 g/dL (1.7-4.1) 10/02/18 13:22 Albumin/Globulin Ratio 1.8 (1.0-2.8) 10/02/18 13:22 Ynnvq-7-Ttirbvyle 0.3 g/dL (0.2-0.3) 10/02/18 13:22 Rizhw-9-Swyzzzjwg 0.8 g/dL (0.5-0.9) 10/02/18 13:22 Hkmu-9-Wqzlnmgd 0.3 g/dL (0.4-0.6) L 10/02/18 13:22 Qlbc-9-Miqlinmn 0.3 g/dL (0.2-0.5) 10/02/18 13:22 Sadj-3-Axmbnrgwivhpv 8.14 mg/L (< 2.52) H 10/02/18 13:22 Gamma Globulins 0.7 g/dL (0.8-1.7) L 10/02/18 13:22 Abnorm Protein Band 1 0.1 g/dL (NONE DETECTED) A 10/02/18 13:22 Abnorm Protein Band 2 Not Reportable 10/02/18 13:22 Abn Gamma Band 3 Serum Not Reportable 10/02/18 13:22 PEP Comment See note 10/02/18 13:22 IgG, Serum (MS) 654 mg/dL (694-1618) L 10/02/18 13:22 IgA 136 mg/dL (81-463) 10/02/18 13:22 IgM 113 mg/dL (48-271) 10/02/18 13:22 SHYAM & SPEP Interp See note 10/02/18 13:22 Free [place] Light Chains 43.1 mg/L (3.3-19.4) H 10/02/18 13:22 Free Lambda Light Chain 25.2 mg/L (5.7-26.3) 10/02/18 13:22 Free [place]/Lambda Ratio 1.71 (0.26-1.65) H 10/02/18 13:22 Assessment and Plan (1) Monoclonal gammopathy Today I discussed with the patient and patient's daughter about the bone marrow aspiration and biopsy report. I discussed with them that there is no evidence of multiple myeloma, no evidence of lymphoma, no evidence of myelofibrosis. There is no abnormal plasma cells identified on flow cytometry. I talked with them that at most, patient may have monoclonal gammopathy of unknown significance. Clinically I will continue current active surveillance. I will have the patient come back in 6 months and repeat CBC CMP and multiple myeloma panel. (2) Hypercalcemia associated with chronic dialysis The calcium level has been normalized. Patient will continue follow-up with Dr. Lorenzana for hemodialysis. (3) ESRD (end stage renal disease) on dialysis On HD Saturday and Saturday. Dr. Lorenzana following.
--- NOTE | 2018-10-16 12:54 | P.PNONC_ITS ---
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 She presents here today for follow-up of the recent bone marrow aspiration biopsy report. She underwent bone marrow aspiration biopsy on 10/02/2018. And the final pathology showed normal cellular marrow for age with trilineage hematopoiesis and focal lambda-scheduling among the non expanded marrow plasma cells, no evidence of amyloid deposition and a Congo red special stain, no evidence of myelodysplasia or involvement by lymphoma, no significant marrow reticulin fibrosis, increased marrow storage iron by special stain with no ringed sideroblasts identified. And flow cytometry showed no definite abnormal plasma cell population identified. No abnormal B-cell or T- cell population identified. Mild immunophenotypic after a garcia on the maturing granulocytes identified. History of Present Illness: Mrs. Alarcon is a 77-year-old female with remote history of left kidney renal cell carcinoma status post left radical nephrectomy approximately in 2004. She developed end-stage renal disease and has been on hemodialysis since approximately 2009. Currently she has been followed by Dr. Lorenzana. In January of 2018 patient developed hypercalcemia. In March 2018, serum protein electrophoresis revealed 0.3 gram/deciliter of abnormal protein band which was categorized as IgG lambda by immunofixation. Despite the elevated calcium level , patient has a suppressed intact PTH of 19 pg/ml. Therefore patient was referred to Hematology Oncology and was evaluated by Dr. Mcneil on June 05, 2018. She underwent skeletal survey on June 11, 2018 which showed a left inferior right almost lytic bone lesion. And repeat serum protein electrophoresis again identified the monoclonal immunoglobulin G lambda 0.2 grams/deciliter. Therefore bone marrow aspiration and biopsy was recommended. . - Patient Self-Reported Symptoms SR Constitution: Fatigue/Malaise SR ears, nose, mouth, throat issues: Congestion SR respiratory issues: Mucous SR Skin issues: Skin lesions or moles SR Gastrointestinal issues: Poor or no appetite, Nausea SR Musculoskeletal issues: Back or neck pain, Bone pain SR Neuro issues: Numbness or tingling SR Hematologic issues: Bleeding/bruising SR Endocrine issues: Excessive thirst - Additional ROS All systems PM: reviewed and no additional remarkable complaints except as stated Home Medications and Allergies Home Medications Medication Instructions Recorded Confirmed Type tetrahydrozoline [Visine] 1 gtt OP QDAY #0 12/14/11 10/03/18 History magnesium hydroxide [Milk Of 30 ml PO DAILY #0 02/03/18 10/03/18 History Magnesia Concentrated] polyethylene glycol 3350 [Miralax] 17 gm PO QDAY PRN #0 02/03/18 10/03/18 History diphenhydramine HCl [Benadryl] 25 mg PO Q4-6H PRN 06/05/18 10/03/18 History flaxseed oil 2,000 mg PO DAILY 06/05/18 10/03/18 History furosemide [Lasix] 40 mg PO BID 06/05/18 10/03/18 History Lactobacillus acidophilus 1 cap PO DAILY 08/21/18 10/03/18 History [Probiotic] multivitamin [Daily-Julee] 1 tab PO DAILY 08/21/18 10/03/18 History diazepam 10 mg tablet 30 mg PO HS #270 tab 09/17/18 10/03/18 Rx oxycodone-acetaminophen 5 mg-325 1 tab PO QIDP PRN #360 tab 09/17/18 10/03/18 Rx mg tablet citalopram 60 mg PO DAILY 09/25/18 10/03/18 History sod phos di, mono-K phos mono 2 tab PO BID 09/25/18 10/03/18 History [U-Bjqq-Plvudbn] Allergies Allergy/AdvReac Type Severity Reaction Status Date / Time iodine [IODINE] Allergy Severe IV CONTRAST Verified 09/25/18 10:52 acetaminophen [From TYLENOL] Allergy Mild LIMIT Verified 09/25/18 10:52 TYLENOL INTAKE, ONE KIDNEY cephalexin [CEPHALEXIN] Allergy Mild RASH Verified 09/25/18 10:52 Penicillins [PENICILLINS] Allergy Mild RASH Verified 09/25/18 10:52 ketorolac [KETOROLAC] Allergy Unknown NO TORADOL Verified 09/25/18 10:52 codeine [CODEINE] AdvReac Mild NAUSEA,VOMI Verified 09/25/18 10:52 TING,HALLUC INATIONS hydrocodone [HYDROCODONE] AdvReac Mild NAUSEA,VOMITING,DIDN'T Verified 09/25/18 10:52 WORK WELL TO CONTROL PAIN prednisone [PREDNISONE] AdvReac Mild SEVERE Verified 09/25/18 10:52 HALLUCINATIONS Exam Vital signs: Last Vital Signs Temp 98.0 F 10/16/18 11:55 Pulse 65 10/16/18 11:55 Resp 18 10/16/18 11:55 BP 133/66 10/16/18 11:55 Pulse Ox 97 10/16/18 11:55 ECOG 1 Narrative: Constitutional: Well developed, thin, not in any acute respiratory distress, average body habitus, well groomed, pleasant and cooperative. HEENT: Normocephalic atraumatic. Extraocular muscle movement intact. Pupils are round, equal and reactive to light and accommodations. Anicteric sclera. No hearing difficulty; Oral mucus membrane moist and without ulcers. Neck: Supple, symmetrical, and tracheal midline; No palpable thyromegaly and no palpable lymph nodes. Respiratory: No use of accessory muscles. Clear to auscultation, and no wheezes or rales or rubs. Cardiovascular: Regular rate and rhythm, S1 and S2 normal, no murmurs gallops or rubs. No JVD. No pitting edema of lower extremities. Abdomen: Soft, nontender, non-distended, bowel sounds normal, no palpable organomegaly, no hernia, no palpable masses. Lower extremities: No palpable pedal edema. Lymphatic: no palpable lymph nodes in the neck, axillae, or groins. Musculoskeletal: normal gait and station, no clubbing, no cyanosis, no pitting edema. Skin: no rashes, no ulcers, no petechiae Neurological: Awake and alert and oriented x3. CN II-XII grossly intact. No focal motor or sensory deficit. Psychiatric: Good judgment, good insight, normal affect, normal thought process , cooperative, no depression, no anxiety. Results - Labs Laboratory Last Values WBC 6.8 X10^3/uL (4.5-11.0) 10/02/18 13: RBC 3.52 X10^6/uL (4.0-5.2) L 10/02/18 13:22 Hgb 11.8 g/dL (12.0-16.0) L 10/02/18 13:22 Hct 35.3 % (36-46) L 10/02/18 13:22 MCV 100.1 fL (80-100) H 10/02/18 13:22 MCH 33.4 PG (26-34) 10/02/18 13:22 MCHC 33.4 % (30-36) 10/02/18 13:22 RDW 12.4 % (11.6-14.8) 10/02/18 13:22 Plt Count 290 X10^3/uL (150-400) 10/02/18 13:22 Neut % (Auto) 59.0 % (50-75) 10/02/18 13:22 Lymph % (Auto) 31.3 % (25-40) 10/02/18 13:22 [place] % (Auto) 7.0 % (3-14) 10/02/18 13:22 Eos % (Auto) 1.9 % (2-4) L 10/02/18 13:22 Baso % (Auto) 0.8 % (0-2) 10/02/18 13:22 Neut # (Auto) 4000 /uL (0906-7375) 10/02/18 13:22 Sodium 140 mmol/L (137-145) 10/02/18 13:22 Potassium 4.0 mmol/L (3.4-5.1) 10/02/18 13:22 Chloride 94 mmol/L (98-107) L 10/02/18 13:22 Carbon Dioxide 38 mmol/L (22-32) H 10/02/18 13:22 BUN 28 mg/dL (7-17) H 10/02/18 13:22 Creatinine 2.50 mg/dL (0.52-1.04) H 10/02/18 13:22 Estimated GFR 18.8 mL/min (>60) L 10/02/18 13:22 BUN/Creatinine Ratio 11.2 (6-22) 10/02/18 13:22 Glucose 80 mg/dL (80-110) 10/02/18 13:22 Calcium 9.0 mg/dL (8.4-10.2) 10/02/18 13:22 Total Bilirubin 0.2 mg/dL (0.2-1.3) 10/02/18 13:22 AST 50 IU/L (14-36) H 10/02/18 13:22 ALT 50 IU/L (9-52) 10/02/18 13:22 Alkaline Phosphatase 155 U/L (38-126) H 10/02/18 13:22 Lactate Dehydrogenase 616 U/L (313-618) 10/02/18 13:22 Serum Total Protein 6.5 g/dL (6.1-8.1) 10/02/18 13:22 Total Protein 6.5 g/dL (6.3-8.2) 10/02/18 13:22 Albumin 4.1 g/dL (3.8-4.8) 10/02/18 13:22 Globulin 2.3 g/dL (1.7-4.1) 10/02/18 13:22 Albumin/Globulin Ratio 1.8 (1.0-2.8) 10/02/18 13:22 Svuxr-4-Inobjwpsf 0.3 g/dL (0.2-0.3) 10/02/18 13:22 Qcuqn-5-Unkalpkij 0.8 g/dL (0.5-0.9) 10/02/18 13:22 Jjwt-5-Qojvtynb 0.3 g/dL (0.4-0.6) L 10/02/18 13:22 Vhmp-5-Renszawr 0.3 g/dL (0.2-0.5) 10/02/18 13:22 Lelh-2-Ycrkfrjqgiuqy 8.14 mg/L (< 2.52) H 10/02/18 13:22 Gamma Globulins 0.7 g/dL (0.8-1.7) L 10/02/18 13:22 Abnorm Protein Band 1 0.1 g/dL (NONE DETECTED) A 10/02/18 13:22 Abnorm Protein Band 2 Not Reportable 10/02/18 13:22 Abn Gamma Band 3 Serum Not Reportable 10/02/18 13:22 PEP Comment See note 10/02/18 13:22 IgG, Serum (MS) 654 mg/dL (694-1618) L 10/02/18 13:22 IgA 136 mg/dL (81-463) 10/02/18 13:22 IgM 113 mg/dL (48-271) 10/02/18 13:22 SHYAM & SPEP Interp See note 10/02/18 13:22 Free [place] Light Chains 43.1 mg/L (3.3-19.4) H 10/02/18 13:22 Free Lambda Light Chain 25.2 mg/L (5.7-26.3) 10/02/18 13:22 Free [place]/Lambda Ratio 1.71 (0.26-1.65) H 10/02/18 13:22 Assessment and Plan (1) Monoclonal gammopathy Today I discussed with the patient and patient's daughter about the bone marrow aspiration and biopsy report. I discussed with them that there is no evidence of multiple myeloma, no evidence of lymphoma, no evidence of myelofibrosis. There is no abnormal plasma cells identified on flow cytometry. I talked with them that at most, patient may have monoclonal gammopathy of unknown significance. Clinically I will continue current active surveillance. I will have the patient come back in 6 months and repeat CBC CMP and multiple myeloma panel. (2) Hypercalcemia associated with chronic dialysis The calcium level has been normalized. Patient will continue follow-up with Dr. Lorenzana for hemodialysis. (3) ESRD (end stage renal disease) on dialysis On HD Saturday and Saturday. Dr. Lorenzana following.
== END ==
PROVIDERS: Internal Medicine Hematology & Oncology; PCP Family Medicine; Visit Provider Internal Medicine Hematology & Oncology
DX: D47.2 Monoclonal gammopathy (principal); N18.6 End stage renal disease; E83.52 Hypercalcemia; Z99.2 Dependence on renal dialysis; Z85.528 Personal history of other malignant neoplasm of kidney; Z90.5 Acquired absence of kidney
CPT/HCPCS: 38222; 80053; 82232; 82784; 83615; 83883; 84155; 84165; 85025; 85060; 85097; 88305; 88311; 88313; 88341; 88342; 96374; 99000; 99205; 99214; 99215; J2060

== ENCOUNTER 2019-01-17 06:27 | Emergency (ER) | payer MEDICARE, SELFPAY ==
[2019-01-17] VITALS (7 sets, daily range): BP systolic 127–147; BP diastolic 70–87; PULSE 82–92; RESP 16–18; TEMP 36.6–37.4; O2SAT 93–99
--- NOTE | 2019-01-17 06:39 | DI.RAD.S_ITS ---
PROCEDURE: XR ABDOMEN 1V INDICATIONS: abdominal pain and distention, history of obstruction TECHNIQUE: One view of the abdomen acquired. COMPARISON: None. FINDINGS: Surgical changes and devices: Multiple surgical clips are projected over the midabdomen. Bowel: There is a large dilated loop of colon within the midabdomen. Gas is also visualized within the descending colon. There is a probable dilated loop of small bowel within the left midabdomen. Soft tissues: No suspicious abdominal calcifications. Visualized solid organ contours appear normal in size. Bones: No suspicious bony lesions. IMPRESSION: Findings suspicious for ileus or bowel obstruction. CT of the abdomen and pelvis would be helpful to further characterize findings if clinically indicated. These findings were discussed with Dr. Santoyo at 7:39 AM on 01/17/19. Dictated by: Yane Ayala M.D. on 01/17/2019 at 7:37 Approved by: Yane Ayala M.D. on 01/17/2019 at 7:41
[2019-01-17 07:00] LABS: Add Manual Diff / Slide Review NO; Basophils Absolute Auto 0 /uL (0-100); Basophils Percent Auto 0.2 % (0-2); Eosinophils Absolute Auto 0 /uL (0-450); Hematocrit 46.7 % (36-46); Hemoglobin 15.5 g/dL (12.0-16.0); Lymphocytes Absolute Auto 800 /uL (1100-4500); Lymphocytes Percent Auto 4.8 % (25-40); Mean Corpuscular HGB Conc 33.2 % (30-36); Mean Corpuscular Hemoglobin 32.9 PG (26-34); Monocytes Absolute Auto 900 /uL (0-900); Monocytes Percent Auto 4.8 % (3-14); Neutrophils Absolute Auto 16000 /uL (1500-7000); Neutrophils Percent Auto 90.2 % (50-75); Platelet Count 377 X10^3/uL (150-400); Red Blood Cell Count 4.71 X10^6/uL (4.0-5.2); Red Cell Distribution Width 12.7 % (11.6-14.8); White Blood Cell Count 17.8 X10^3/uL (4.5-11.0)
--- NOTE | 2019-01-17 07:07 | ED.PEDGIA ---
HPI - Pediatric GI General Chief Complaint: Abdominal Pain Stated Complaint: CONSTIPATED/CANNOT URINATE X1 DAY Time Seen by Provider: 01/17/19 06:37 Source: patient Mode of arrival: ambulatory Limitations: other (Poor historian) History of Present Illness HPI narrative: The patient presents with abdominal pain and distention. She complains of abdominal pain for 2 days. She had bowel movements yesterday. She has significant pain, but denies vomiting. She denies fever or chills. She has a history of recurrent small bowel obstruction. She was treated conservatively with NG tube in March and April 2018. She was seen here again October [address] [facility] due to a partial small-bowel obstruction. She has ESRD, and undergoes dialysis on Mondays and Fridays. She missed dialysis yesterday due to her abdominal discomfort. She has a history of renal cell carcinoma status post left nephrectomy in 2005. She has also undergone DENIS-BSO. She also has a history of left inguinal hernia repair with mesh. She can tell me she has a history of adhesions but she is not a good past historian. She cannot give me report of surgery associated with small bowel obstruction. She is an ongoing tobacco smoker. Related Data Home Medications Medication Instructions Recorded Confirmed tetrahydrozoline [Visine] 1 gtt OP QDAY #0 12/14/11 12/09/18 Milk Of Magnesia Concentrated 30 ml PO DAILY #0 02/03/18 01/17/19 polyethylene glycol 3350 [Miralax] 17 gm PO QDAY PRN #0 02/03/18 12/09/18 diphenhydramine HCl [Benadryl] 25 mg PO Q4-6H PRN 06/05/18 01/17/19 flaxseed oil 2,000 mg PO DAILY 06/05/18 01/17/19 furosemide [Lasix] 40 mg PO BID 06/05/18 01/17/19 Lactobacillus acidophilus 1 cap PO DAILY 08/21/18 01/17/19 [Probiotic] multivitamin [Daily-Julee] 1 tab PO DAILY 08/21/18 01/17/19 citalopram 60 mg PO DAILY 09/25/18 01/17/19 omega 1-cjs-kqj-fish oil [Fish Oil] 4 cap PO DAILY 01/17/19 01/17/19 oxycodone-acetaminophen See Rx Instructions .ROUTE 01/17/19 .COMPLEX PRN Previous Rx's Medication Instructions Recorded diazepam 10 mg tablet 30 mg PO HS #270 tab 09/17/18 Allergies Allergy/AdvReac Type Severity Reaction Status Date / Time acetaminophen [From TYLENOL] Allergy Mild LIMIT Verified 01/17/19 06:44 TYLENOL INTAKE, ONE KIDNEY cephalexin [CEPHALEXIN] Allergy Mild RASH Verified 01/17/19 06:44 Penicillins [PENICILLINS] Allergy Mild RASH Verified 01/17/19 06:44 ketorolac [KETOROLAC] Allergy Unknown NO TORADOL Verified 01/17/19 06:44 codeine [CODEINE] AdvReac Mild NAUSEA,VOMI Verified 01/17/19 06:44 TING,HALLUC INATIONS hydrocodone [HYDROCODONE] AdvReac Mild NAUSEA,VOMITING,DIDN'T Verified 01/17/19 06:44 WORK WELL TO CONTROL PAIN prednisone [PREDNISONE] AdvReac Mild SEVERE Verified 01/17/19 06:44 HALLUCINATIONS Pediatric Review of Systems Limitations: Other (History in ROS is limited, patient is a poor historian.) Constitutional: Denies fever and chills ENT: Denies sore throat and rhinorrhea Cardiovascular: Denies chest pain and palpitations Respiratory: Denies cough and dyspnea Gastrointestinal: Reports abdominal pain; Denies nausea, vomiting and diarrhea Genitourinary: Denies dysuria Musculoskeletal: Denies back pain Integumentary: Denies rash and lesions Neurological: Denies headache and weakness Psychiatric: Reports change in energy level Endocrine: Reports fatigue Hematological/Lymphatic: Denies easy bleeding Allergic/Immunologic: Denies urticaria PFSH Medical History 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 (Acute) ESRD (end stage renal disease) on dialysis (Acute) Anxiety (Acute) Hypertension (Acute) S/p nephrectomy (Acute) History of renal cell cancer (Acute) SBO (small bowel obstruction) (Acute) Surgical History H/O carpal tunnel repair (Acute) H/O hernia repair (Acute) S/P DENIS-BSO (Acute) S/P tonsillectomy and adenoidectomy (Acute) Social History Smoking Status: Current every day smoker Social History Smoking Status: Current every day smoker Pediatric Exam Initial Vital Signs Initial Vital Signs: Vital Signs Temperature 97.8 F 01/17/19 06:35 Pulse Rate 92 H 01/17/19 06:35 Respiratory Rate 18 01/17/19 06:35 Blood Pressure 147/79 H 01/17/19 06:35 Pulse Oximetry 99 01/17/19 06:35 General Limitations: other (Poor historian) General appearance: appears in pain Head Head exam: normocephalic and atraumatic Eye Eye exam: Present normal appearance, PERRL and EOMI ENT ENT exam: mucous membranes dry Neck Neck exam: Present full ROM; Absent tenderness and lymphadenopathy Chest Chest inspection: Present normal inspection and symmetric chest wall rise Respiratory Respiratory exam: Present normal lung sounds bilaterally Cardiovascular Cardiovascular exam: Present regular rate and normal rhythm; Absent rubs, gallop and clicks Abdominal Exam Abdominal exam: Present distention, guarding, rigidity and hypoactive bowel sounds; Absent rebound Back Exam Back exam: Present full ROM; Absent tenderness Skin Skin exam: Present warm, dry and normal color; Absent rash and cyanosis Course Course Narrative: The patient presents with abdominal pain and distention. She has a prior history of multiple bowel obstructions. Exam is consistent with bowel obstruction. The initial x-ray was suggestive SBO versus volvulus. CT confirmed sigmoid volvulus. The patient requires dialysis Saturday and Saturday. She did not go to dialysis yesterday, because she did not feel well. She presents now with abdominal complaints. She has no vomiting. She denies fever. Dr. Spivey, surgery at [facility] was contacted regarding the volvulus. He has agreed to see the patient urgently. In the evaluation the patient has an elevated WBC as well as a mildly elevated lactate. IV fluid bolus was initiated. Blood cultures were ordered. She was given an initial dose of Zosyn, started before transport. She will be going from here to the [facility] ER for evaluation by Dr. Spivey in the ER.. In addition to surgery, Dr. Raymond, ER physician was notified. Orders Ordered: ED Orders 01/17/19 06:39 XR abdomen 1V Stat 01/17/19 06:40 Complete Blood Count AUTO DIFF Stat Partial Thromboplastin Time Stat Prothrombin Time INR Stat 01/17/19 07:39 CT abdomen pelvis w con Stat 01/17/19 07:50 Comprehensive Metabolic Panel Stat Lactate (Lactic Acid) Stat Lipase Stat 01/17/19 09:26 Blood Culture Stat Sodium Chloride (Normal Saline 0.9%) 1,000 mls @ 75 mls/hr IV CONT MACRINA Sodium Chloride (Normal Saline 0.9%) 1,000 mls @ 1,000 mls/hr IV BOLUS ONE Stop: 01/17/19 10:26 Last Admin: 01/17/19 09:37 Dose: 1,000 mls/hr Piperacillin/Tazobactam/Dextrose (Zosyn) 3.375 gm in 50 mls @ 100 mls/hr IV NOW ONE Stop: 01/17/19 10:03 Last Admin: 01/17/19 09:38 Dose: 100 mls/hr Discontinued Medications Morphine Sulfate (Morphine) 4 mg IV NOW ONE Stop: 01/17/19 07:14 Last Admin: 01/17/19 07:28 Dose: 4 mg Morphine Sulfate (Morphine Sulfate) 4 mg IV NOW ONE Stop: 01/17/19 09:37 Vital Signs - 8 hr 01/17/19 06:35 01/17/19 07:00 01/17/19 07:30 Temperature 97.8 F Pulse Rate 92 H 85 84 Respiratory Rate 18 16 Blood Pressure 147/79 H Blood Pressure [Right Arm] 140/71 134/70 Pulse Oximetry 99 96 94 01/17/19 08:51 01/17/19 09:10 Temperature Pulse Rate 82 86 Respiratory Rate 16 18 Blood Pressure Blood Pressure [Right Arm] 127/87 127/71 Pulse Oximetry 94 93 Medical Decision Making Lab Data Result diagrams: 01/17/19 06:40 01/17/19 07:50 Lab Results 01/17/19 01/17/19 01/17/19 Range/Units 06:40 06:40 07:50 WBC 17.8 H (4.5-11.0) X10^3/uL RBC 4.71 (4.0-5.2) X10^6/uL Hgb 15.5 (12.0-16.0) g/dL Hct 46.7 H (36-46) % MCV 99.0 (80-100) fL MCH 32.9 (26-34) PG MCHC 33.2 (30-36) % RDW 12.7 (11.6-14.8) % Plt Count 377 (150-400) X10^3/uL Neut % (Auto) 90.2 H (50-75) % Lymph % (Auto) 4.8 L (25-40) % [place] % (Auto) 4.8 (3-14) % Eos % (Auto) 0.0 L (2-4) % Baso % (Auto) 0.2 (0-2) % Neut # (Auto) 76413 H (5380-1176) /uL Lymph # (Auto) 800 L (0215-0032) /uL [place] # (Auto) 900 (0-900) /uL Eos # (Auto) 0 (0-450) /uL Baso # (Auto) 0 (0-100) /uL PT 11.0 (10.1-12.7) SECONDS INR 1.0 (0.9-1.3) APTT 29 (26.4-36.2) SECONDS Sodium 142 (137-145) mmol/L Potassium 3.7 (3.4-5.1) mmol/L Chloride 90 L (98-107) mmol/L Carbon Dioxide 38 H (22-32) mmol/L BUN 42 H (7-17) mg/dL Creatinine 3.30 H (0.52-1.04) mg/dL Estimated GFR 13.6 L (>60) mL/min BUN/Creatinine Ratio 12.7 (6-22) Glucose 196 H (80-110) mg/dL Lactate (0.7-2.1) mmol/L Calcium 10.5 H (8.4-10.2) mg/dL Total Bilirubin 0.4 (0.2-1.3) mg/dL AST 36 (14-36) IU/L ALT 39 (9-52) IU/L Alkaline Phosphatase 174 H (38-126) U/L Total Protein 8.1 (6.3-8.2) g/dL Albumin 4.8 (3.5-5.0) g/dL Globulin 3.3 (1.7-4.1) g/dL Albumin/Globulin Ratio 1.5 (1.0-2.8) Lipase 130 (23-300) U/L 01/17/19 Range/Units 07:50 WBC (4.5-11.0) X10^3/uL RBC (4.0-5.2) X10^6/uL Hgb (12.0-16.0) g/dL Hct (36-46) % MCV (80-100) fL MCH (26-34) PG MCHC (30-36) % RDW (11.6-14.8) % Plt Count (150-400) X10^3/uL Neut % (Auto) (50-75) % Lymph % (Auto) (25-40) % [place] % (Auto) (3-14) % Eos % (Auto) (2-4) % Baso % (Auto) (0-2) % Neut # (Auto) (1818-8583) /uL Lymph # (Auto) (0229-0658) /uL [place] # (Auto) (0-900) /uL Eos # (Auto) (0-450) /uL Baso # (Auto) (0-100) /uL PT (10.1-12.7) SECONDS INR (0.9-1.3) APTT (26.4-36.2) SECONDS Sodium (137-145) mmol/L Potassium (3.4-5.1) mmol/L Chloride (98-107) mmol/L Carbon Dioxide (22-32) mmol/L BUN (7-17) mg/dL Creatinine (0.52-1.04) mg/dL Estimated GFR (>60) mL/min BUN/Creatinine Ratio (6-22) Glucose (80-110) mg/dL Lactate 2.5 H (0.7-2.1) mmol/L Calcium (8.4-10.2) mg/dL Total Bilirubin (0.2-1.3) mg/dL AST (14-36) IU/L ALT (9-52) IU/L Alkaline Phosphatase (38-126) U/L Total Protein (6.3-8.2) g/dL Albumin (3.5-5.0) g/dL Globulin (1.7-4.1) g/dL Albumin/Globulin Ratio (1.0-2.8) Lipase (23-300) U/L Imaging Data Abdominal x-ray: Radiologist's impression: [address] [address] XRay Report Signed Patient: Kristine Damon BMR#: [id number] : 2Acct:[id number] Age/Sex: 78 / FDate of Service: 01/17/19 Loc: ED Accession Number: [id number] Procedure: XR abdomen 1V Ordering Provider: Rosalino Sibley D.O. PROCEDURE: XR ABDOMEN 1V INDICATIONS: abdominal pain and distention, history of obstruction TECHNIQUE: One view of the abdomen acquired. COMPARISON: None. FINDINGS: Surgical changes and devices: Multiple surgical clips are projected over the midabdomen. Bowel: There is a large dilated loop of colon within the midabdomen. Gas is also visualized within the descending colon. There is a probable dilated loop of small bowel within the left midabdomen. Soft tissues: No suspicious abdominal calcifications. Visualized solid organ contours appear normal in size. Bones: No suspicious bony lesions. IMPRESSION: Findings suspicious for ileus or bowel obstruction. CT of the abdomen and pelvis would be helpful to further characterize findings if clinically indicated. These findings were discussed with Dr. Santoyo at 7:39 AM on 01/17/19. Dictated by: Yane Ayala M.D. on 01/17/2019 at 7:37 Approved by: Yane Ayala M.D. on 01/17/2019 at 7:41 CT scan - abdomen: Radiologist's impression: [place] [address] XRay Report Signed Patient: Kristine Damon BMR#: [id number] : 2Acct:[id number] Age/Sex: 78 / FDate of Service: 01/17/19 Loc: ED Accession Number: [id number] Procedure: XR abdomen 1V Ordering Provider: Rosalino Sibley D.O. PROCEDURE: XR ABDOMEN 1V INDICATIONS: abdominal pain and distention, history of obstruction TECHNIQUE: One view of the abdomen acquired. COMPARISON: None. FINDINGS: Surgical changes and devices: Multiple surgical clips are projected over the midabdomen. Bowel: There is a large dilated loop of colon within the midabdomen. Gas is also visualized within the descending colon. There is a probable dilated loop of small bowel within the left midabdomen. Soft tissues: No suspicious abdominal calcifications. Visualized solid organ contours appear normal in size. Bones: No suspicious bony lesions. IMPRESSION: Findings suspicious for ileus or bowel obstruction. CT of the abdomen and pelvis would be helpful to further characterize findings if clinically indicated. These findings were discussed with Dr. Santoyo at 7:39 AM on 01/17/19. Dictated by: Yane Ayala M.D. on 01/17/2019 at 7:37 Approved by: Yane Ayala M.D. on 01/17/2019 at 7:41 Critical Care Time Critical Care Time: Yes Total Critical Care Time: 40 Attestation: The patient required initial history and exam. The past medical records at this institution as well as records from [facility] were reviewed. Multiple conversations involving the radiologist here at [facility], Dr. Spivey the on-call surgeon at [facility], and Dr. Raymond, the ER doctor at [facility] were undertaken. The patient has been informed of the clinical findings. She will need urgent surgical evaluation. Discharge Plan Departure Patient Disposition: [facility] Clinical Impression: Volvulus, End-stage renal disease (ESRD) Sepsis Qualifiers: Sepsis type: sepsis due to unspecified organism Qualified Code(s): A41.9 - Sepsis, unspecified organism Prescriptions: No Action tetrahydrozoline [Visine] 15 ML drops 1 gtt OP QDAY Qty: 0 RF: 0 Milk Of Magnesia Concentrated 2,400 MG/10 ML suspension 30 ml PO DAILY Qty: 0 RF: 0 polyethylene glycol 3350 [Miralax] 119 GM powder 17 gm PO QDAY PRN (Reason: Constipation) Qty: 0 RF: 0 diazepam [Valium] 10 mg tablet 30 mg PO HS Qty: 270 RF: 0 furosemide [Lasix] 40 mg Tablet 40 mg PO BID RF: 0 diphenhydramine HCl [Benadryl] 25 mg Capsule 25 mg PO Q4-6H PRN (Reason: Allergic Symptoms) RF: 0 flaxseed oil 1,000 mg Capsule 2,000 mg PO DAILY RF: 0 Probiotic 10 billion cell Capsule 1 cap PO DAILY RF: 0 multivitamin [Daily-Julee] Tablet 1 tab PO DAILY RF: 0 citalopram 20 mg tablet 60 mg PO DAILY RF: 0 oxycodone-acetaminophen 5-325 mg tablet See Rx Instructions .ROUTE .COMPLEX PRN (Reason: pain) RF: 0 omega 5-oeu-cvh-fish oil [Fish Oil] 1,000 mg (120 mg-180 mg) Capsule 4 cap PO DAILY RF: 0 Referrals: Silva,Les, MD [Primary Care Provider] -
[2019-01-17 07:08] LABS: PTT Partial Thromboplastin Tim 29 SECONDS (26.4-36.2)
[2019-01-17] MEDS: MORPHINE 4 MG/ML INJ IV (07:28)
--- NOTE | 2019-01-17 07:31 | ED_ITS ---
HPI - Pediatric GI General Chief Complaint: Abdominal Pain Stated Complaint: CONSTIPATED/CANNOT URINATE X1 DAY Time Seen by Provider: 01/17/19 06:37 Source: patient Mode of arrival: ambulatory Limitations: other (Poor historian) History of Present Illness HPI narrative: The patient presents with abdominal pain and distention. She complains of abdominal pain for 2 days. She had bowel movements yesterday. She has significant pain, but denies vomiting. She denies fever or chills. She has a history of recurrent small bowel obstruction. She was treated conservatively with NG tube in March and April 2018. She was seen here again October 2018 and transferred to [facility] due to a partial small-bowel obstruction. She has ESRD, and undergoes dialysis on Mondays and Fridays. She missed dialysis yesterday due to her abdominal discomfort. She has a history of renal cell carcinoma status post left nephrectomy in 2005. She has also undergone DENIS-BSO. She also has a history of left inguinal hernia repair with mesh. She can tell me she has a history of adhesions but she is not a good past historian. She cannot give me report of surgery associated with small bowel obstruction. She is an ongoing tobacco smoker. Related Data Home Medications Medication Instructions Recorded Confirmed tetrahydrozoline [Visine] 1 gtt OP QDAY #0 12/14/11 12/09/18 Milk Of Magnesia Concentrated 30 ml PO DAILY #0 02/03/18 01/17/19 polyethylene glycol 3350 [Miralax] 17 gm PO QDAY PRN #0 02/03/18 12/09/18 diphenhydramine HCl [Benadryl] 25 mg PO Q4-6H PRN 06/05/18 01/17/19 flaxseed oil 2,000 mg PO DAILY 06/05/18 01/17/19 furosemide [Lasix] 40 mg PO BID 06/05/18 01/17/19 Lactobacillus acidophilus 1 cap PO DAILY 08/21/18 01/17/19 [Probiotic] multivitamin [Daily-Julee] 1 tab PO DAILY 08/21/18 01/17/19 citalopram 60 mg PO DAILY 09/25/18 01/17/19 omega 1-ffd-jva-fish oil [Fish Oil] 4 cap PO DAILY 01/17/19 01/17/19 oxycodone-acetaminophen See Rx Instructions .ROUTE 01/17/19 .COMPLEX PRN Previous Rx's Medication Instructions Recorded diazepam 10 mg tablet 30 mg PO HS #270 tab 09/17/18 Allergies Allergy/AdvReac Type Severity Reaction Status Date / Time acetaminophen [From TYLENOL] Allergy Mild LIMIT Verified 01/17/19 06:44 TYLENOL INTAKE, ONE KIDNEY cephalexin [CEPHALEXIN] Allergy Mild RASH Verified 01/17/19 06:44 Penicillins [PENICILLINS] Allergy Mild RASH Verified 01/17/19 06:44 ketorolac [KETOROLAC] Allergy Unknown NO TORADOL Verified 01/17/19 06:44 codeine [CODEINE] AdvReac Mild NAUSEA,VOMI Verified 01/17/19 06:44 TING,HALLUC INATIONS hydrocodone [HYDROCODONE] AdvReac Mild NAUSEA,VOMITING,DIDN'T Verified 01/17/19 06:44 WORK WELL TO CONTROL PAIN prednisone [PREDNISONE] AdvReac Mild SEVERE Verified 01/17/19 06:44 HALLUCINATIONS Pediatric Review of Systems Limitations: Other (History in ROS is limited, patient is a poor historian.) Constitutional: Denies fever and chills ENT: Denies sore throat and rhinorrhea Cardiovascular: Denies chest pain and palpitations Respiratory: Denies cough and dyspnea Gastrointestinal: Reports abdominal pain; Denies nausea, vomiting and diarrhea Genitourinary: Denies dysuria Musculoskeletal: Denies back pain Integumentary: Denies rash and lesions Neurological: Denies headache and weakness Psychiatric: Reports change in energy level Endocrine: Reports fatigue Hematological/Lymphatic: Denies easy bleeding Allergic/Immunologic: Denies urticaria PFSH Medical History 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 (Acute) ESRD (end stage renal disease) on dialysis (Acute) Anxiety (Acute) Hypertension (Acute) S/p nephrectomy (Acute) History of renal cell cancer (Acute) SBO (small bowel obstruction) (Acute) Surgical History H/O carpal tunnel repair (Acute) H/O hernia repair (Acute) S/P DENIS-BSO (Acute) S/P tonsillectomy and adenoidectomy (Acute) Social History Smoking Status: Current every day smoker Social History Smoking Status: Current every day smoker Pediatric Exam Initial Vital Signs Initial Vital Signs: Vital Signs Temperature 97.8 F 01/17/19 06:35 Pulse Rate 92 H 01/17/19 06:35 Respiratory Rate 18 01/17/19 06:35 Blood Pressure 147/79 H 01/17/19 06:35 Pulse Oximetry 99 01/17/19 06:35 General Limitations: other (Poor historian) General appearance: appears in pain Head Head exam: normocephalic and atraumatic Eye Eye exam: Present normal appearance, PERRL and EOMI ENT ENT exam: mucous membranes dry Neck Neck exam: Present full ROM; Absent tenderness and lymphadenopathy Chest Chest inspection: Present normal inspection and symmetric chest wall rise Respiratory Respiratory exam: Present normal lung sounds bilaterally Cardiovascular Cardiovascular exam: Present regular rate and normal rhythm; Absent rubs, gallop and clicks Abdominal Exam Abdominal exam: Present distention, guarding, rigidity and hypoactive bowel sounds; Absent rebound Back Exam Back exam: Present full ROM; Absent tenderness Skin Skin exam: Present warm, dry and normal color; Absent rash and cyanosis Course Course Narrative: The patient presents with abdominal pain and distention. She has a prior history of multiple bowel obstructions. Exam is consistent with bowel obstruction. The initial x-ray was suggestive SBO versus volvulus. CT confirmed sigmoid volvulus. The patient requires dialysis Saturday and Saturday. She did not go to dialysis yesterday, because she did not feel well. She presents now with abdominal complaints. She has no vomiting. She denies fever. Dr. Spivey, surgery at [facility] was contacted regarding the volvulus. He has agreed to see the patient urgently. In the evaluation the patient has an elevated WBC as well as a mildly elevated lactate. IV fluid bolus was initiated. Blood cultures were ordered. She was given an initial dose of Zosyn, started before transport. She will be going from here to the [facility] ER for evaluation by Dr. Spivey in the ER.. In addition to surgery, Dr. Raymond, ER physician was notified. Orders Ordered: ED Orders 01/17/19 06:39 XR abdomen 1V Stat 01/17/19 06:40 Complete Blood Count AUTO DIFF Stat Partial Thromboplastin Time Stat Prothrombin Time INR Stat 01/17/19 07:39 CT abdomen pelvis w con Stat 01/17/19 07:50 Comprehensive Metabolic Panel Stat Lactate (Lactic Acid) Stat Lipase Stat 01/17/19 09:26 Blood Culture Stat Sodium Chloride (Normal Saline 0.9%) 1,000 mls @ 75 mls/hr IV CONT MACRINA Sodium Chloride (Normal Saline 0.9%) 1,000 mls @ 1,000 mls/hr IV BOLUS ONE Stop: 01/17/19 10:26 Last Admin: 01/17/19 09:37 Dose: 1,000 mls/hr Piperacillin/Tazobactam/Dextrose (Zosyn) 3.375 gm in 50 mls @ 100 mls/hr IV NOW ONE Stop: 01/17/19 10:03 Last Admin: 01/17/19 09:38 Dose: 100 mls/hr Discontinued Medications Morphine Sulfate (Morphine) 4 mg IV NOW ONE Stop: 01/17/19 07:14 Last Admin: 01/17/19 07:28 Dose: 4 mg Morphine Sulfate (Morphine Sulfate) 4 mg IV NOW ONE Stop: 01/17/19 09:37 Vital Signs - 8 hr 01/17/19 06:35 01/17/19 07:00 01/17/19 07:30 Temperature 97.8 F Pulse Rate 92 H 85 84 Respiratory Rate 18 16 Blood Pressure 147/79 H Blood Pressure [Right Arm] 140/71 134/70 Pulse Oximetry 99 96 94 01/17/19 08:51 01/17/19 09:10 Temperature Pulse Rate 82 86 Respiratory Rate 16 18 Blood Pressure Blood Pressure [Right Arm] 127/87 127/71 Pulse Oximetry 94 93 Medical Decision Making Lab Data Result diagrams: 01/17/19 06:40 01/17/19 07:50 Lab Results 01/17/19 01/17/19 01/17/19 Range/Units 06:40 06:40 07:50 WBC 17.8 H (4.5-11.0) X10^3/uL RBC 4.71 (4.0-5.2) X10^6/uL Hgb 15.5 (12.0-16.0) g/dL Hct 46.7 H (36-46) % MCV 99.0 (80-100) fL MCH 32.9 (26-34) PG MCHC 33.2 (30-36) % RDW 12.7 (11.6-14.8) % Plt Count 377 (150-400) X10^3/uL Neut % (Auto) 90.2 H (50-75) % Lymph % (Auto) 4.8 L (25-40) % Menard % (Auto) 4.8 (3-14) % Eos % (Auto) 0.0 L (2-4) % Baso % (Auto) 0.2 (0-2) % Neut # (Auto) 65434 H (1176-3108) /uL Lymph # (Auto) 800 L (2985-8463) /uL Menard # (Auto) 900 (0-900) /uL Eos # (Auto) 0 (0-450) /uL Baso # (Auto) 0 (0-100) /uL PT 11.0 (10.1-12.7) SECONDS INR 1.0 (0.9-1.3) APTT 29 (26.4-36.2) SECONDS Sodium 142 (137-145) mmol/L Potassium 3.7 (3.4-5.1) mmol/L Chloride 90 L (98-107) mmol/L Carbon Dioxide 38 H (22-32) mmol/L BUN 42 H (7-17) mg/dL Creatinine 3.30 H (0.52-1.04) mg/dL Estimated GFR 13.6 L (>60) mL/min BUN/Creatinine Ratio 12.7 (6-22) Glucose 196 H (80-110) mg/dL Lactate (0.7-2.1) mmol/L Calcium 10.5 H (8.4-10.2) mg/dL Total Bilirubin 0.4 (0.2-1.3) mg/dL AST 36 (14-36) IU/L ALT 39 (9-52) IU/L Alkaline Phosphatase 174 H (38-126) U/L Total Protein 8.1 (6.3-8.2) g/dL Albumin 4.8 (3.5-5.0) g/dL Globulin 3.3 (1.7-4.1) g/dL Albumin/Globulin Ratio 1.5 (1.0-2.8) Lipase 130 (23-300) U/L 01/17/19 Range/Units 07:50 WBC (4.5-11.0) X10^3/uL RBC (4.0-5.2) X10^6/uL Hgb (12.0-16.0) g/dL Hct (36-46) % MCV (80-100) fL MCH (26-34) PG MCHC (30-36) % RDW (11.6-14.8) % Plt Count (150-400) X10^3/uL Neut % (Auto) (50-75) % Lymph % (Auto) (25-40) % Menard % (Auto) (3-14) % Eos % (Auto) (2-4) % Baso % (Auto) (0-2) % Neut # (Auto) (7472-1003) /uL Lymph # (Auto) (3461-1138) /uL Menard # (Auto) (0-900) /uL Eos # (Auto) (0-450) /uL Baso # (Auto) (0-100) /uL PT (10.1-12.7) SECONDS INR (0.9-1.3) APTT (26.4-36.2) SECONDS Sodium (137-145) mmol/L Potassium (3.4-5.1) mmol/L Chloride (98-107) mmol/L Carbon Dioxide (22-32) mmol/L BUN (7-17) mg/dL Creatinine (0.52-1.04) mg/dL Estimated GFR (>60) mL/min BUN/Creatinine Ratio (6-22) Glucose (80-110) mg/dL Lactate 2.5 H (0.7-2.1) mmol/L Calcium (8.4-10.2) mg/dL Total Bilirubin (0.2-1.3) mg/dL AST (14-36) IU/L ALT (9-52) IU/L Alkaline Phosphatase (38-126) U/L Total Protein (6.3-8.2) g/dL Albumin (3.5-5.0) g/dL Globulin (1.7-4.1) g/dL Albumin/Globulin Ratio (1.0-2.8) Lipase (23-300) U/L Imaging Data Abdominal x-ray: Radiologist's impression: [address] [address] XRay Report Signed Patient: Kristine Damon BMR#: [id number] : 2Acct:[id number] Age/Sex: 78 / FDate of Service: 01/17/19 Loc: ED Accession Number: [id number] Procedure: XR abdomen 1V Ordering Provider: Rosalino Sibley D.O. PROCEDURE: XR ABDOMEN 1V INDICATIONS: abdominal pain and distention, history of obstruction TECHNIQUE: One view of the abdomen acquired. COMPARISON: None. FINDINGS: Surgical changes and devices: Multiple surgical clips are projected over the midabdomen. Bowel: There is a large dilated loop of colon within the midabdomen. Gas is also visualized within the descending colon. There is a probable dilated loop of small bowel within the left midabdomen. Soft tissues: No suspicious abdominal calcifications. Visualized solid organ contours appear normal in size. Bones: No suspicious bony lesions. IMPRESSION: Findings suspicious for ileus or bowel obstruction. CT of the abdomen and pelvis would be helpful to further characterize findings if clinically indicated. These findings were discussed with Dr. Santoyo at 7:39 AM on 01/17/19. Dictated by: Yane Ayala M.D. on 01/17/2019 at 7:37 Approved by: Yane Ayala M.D. on 01/17/2019 at 7:41 CT scan - abdomen: Radiologist's impression: [place] [address] XRay Report Signed Patient: Kristine Damon BMR#: [id number] : 2Acct:[id number] Age/Sex: 78 / FDate of Service: 01/17/19 Loc: ED Accession Number: [id number] Procedure: XR abdomen 1V Ordering Provider: Rosalino Sibley D.O. PROCEDURE: XR ABDOMEN 1V INDICATIONS: abdominal pain and distention, history of obstruction TECHNIQUE: One view of the abdomen acquired. COMPARISON: None. FINDINGS: Surgical changes and devices: Multiple surgical clips are projected over the midabdomen. Bowel: There is a large dilated loop of colon within the midabdomen. Gas is also visualized within the descending colon. There is a probable dilated loop of small bowel within the left midabdomen. Soft tissues: No suspicious abdominal calcifications. Visualized solid organ contours appear normal in size. Bones: No suspicious bony lesions. IMPRESSION: Findings suspicious for ileus or bowel obstruction. CT of the abdomen and pelvis would be helpful to further characterize findings if clinically i ndicated. These findings were discussed with Dr. Santoyo at 7:39 AM on 01/17/19. Dictated by: Yane Ayala M.D. on 01/17/2019 at 7:37 Approved by: Yane Ayala M.D. on 01/17/2019 at 7:41 Critical Care Time Critical Care Time: Yes Total Critical Care Time: 40 Attestation: The patient required initial history and exam. The past medical records at this institution as well as records from [facility] were reviewed. Multiple conversations involving the radiologist here at [facility], Dr. Spivey the on-call surgeon at [facility], and Dr. Raymond, the ER doctor at [facility] were undertaken. The patient has been informed of the clinical findings. She will need urgent surgical evaluation. Discharge Plan Departure [facility] Clinical Impression: Volvulus, End-stage renal disease (ESRD) Sepsis Qualifiers: Sepsis type: sepsis due to unspecified organism Qualified Code(s): A41.9 - Sepsis, unspecified organism Prescriptions: No Action tetrahydrozoline [Visine] 15 ML drops 1 gtt OP QDAY Qty: 0 RF: 0 Milk Of Magnesia Concentrated 2,400 MG/10 ML suspension 30 ml PO DAILY Qty: 0 RF: 0 polyethylene glycol 3350 [Miralax] 119 GM powder 17 gm PO QDAY PRN (Reason: Constipation) Qty: 0 RF: 0 diazepam [Valium] 10 mg tablet 30 mg PO HS Qty: 270 RF: 0 furosemide [Lasix] 40 mg Tablet 40 mg PO BID RF: 0 diphenhydramine HCl [Benadryl] 25 mg Capsule 25 mg PO Q4-6H PRN (Reason: Allergic Symptoms) RF: 0 flaxseed oil 1,000 mg Capsule 2,000 mg PO DAILY RF: 0 Probiotic 10 billion cell Capsule 1 cap PO DAILY RF: 0 multivitamin [Daily-Julee] Tablet 1 tab PO DAILY RF: 0 citalopram 20 mg tablet 60 mg PO DAILY RF: 0 oxycodone-acetaminophen 5-325 mg tablet See Rx Instructions .ROUTE .COMPLEX PRN (Reason: pain) RF: 0 omega 4-ckm-oea-fish oil [Fish Oil] 1,000 mg (120 mg-180 mg) Capsule 4 cap PO DAILY RF: 0 Referrals: Silva,Les, MD [Primary Care Provider] -
--- NOTE | 2019-01-17 07:39 | DI.CT.S_ITS ---
PROCEDURE: CT ABDOMEN PELVIS W CON INDICATIONS: Possible SBO. TECHNIQUE: After the administration of intravenous contrast, 5 mm thick sections acquired from the diaphragm to the symphysis. 5 mm coronal and sagittal reformats were acquired. For radiation dose reduction, the following was used: automated exposure control, adjustment of mA and/or kV according to patient size. COMPARISON: None. FINDINGS: Image quality: Excellent. ABDOMEN: Lung bases: Lung bases are clear. Heart size is normal. Solid organs: Liver is normal in size and enhancement. Punctate subcentimeter gallstones are layered within the gallbladder fundus. No gallbladder wall thickening. Biliary system is non dilated. Pancreas enhances normally. Spleen is normal in size and enhancement. No adrenal nodules. Multiple low-density cystic lesions are present within the right kidney. The left kidney is surgically absent. Peritoneum and bowel: Stomach is decompressed. The small bowel demonstrates normal course and caliber. The ascending and transverse colon are not well visualized. The descending and sigmoid colon are massively dilated with multiple differential air-fluid levels present. No definite mucosal thickening. Torsion of the mesenteric vessels is noted with a birds beak appearance to the bowel within the distal colon (series 4, image 25 and series 4, image 28). There is a moderate amount of low-density abdominal ascites. No pneumoperitoneum or pneumatosis. Nodes and vessels: No retroperitoneal or mesenteric adenopathy by size criteria. Aorta and inferior vena cava are normal in size. There are scattered atheromatous calcifications throughout the aorta and iliac arteries bilaterally. Miscellaneous: No ventral hernias. PELVIS: Genitourinary: Bladder wall thickness is normal. Miscellaneous: No inguinal hernias or adenopathy. Bones: No suspicious bony lesions. No vertebral body compression fractures. S-shaped scoliosis is noted within the thoracolumbar spine. There are moderate degenerative changes. IMPRESSION: 1. Distal colonic volvulus with massive dilatation of the involved bowel. No mucosal thickening or pneumatosis to suggest bowel ischemia at this time. 2. Moderate abdominal pelvic ascites. These findings were discussed with Dr. Santoyo at 8:46 AM on 01/17/19. Dictated by: Yane Ayala M.D. on 01/17/2019 at 8:39 Approved by: Yane Ayala M.D. on 01/17/2019 at 8:48
[2019-01-17 08:18] LABS: Alanine Aminotransferase 39 IU/L (9-52); Albumin 4.8 g/dL (3.5-5.0); Albumin Globulin Ratio 1.5 (1.0-2.8); Alkaline Phosphatase 174 U/L (38-126); Aspartate Aminotransferase 36 IU/L (14-36); BUN Creatinine Ratio 12.7 (6-22); Bilirubin Total 0.4 mg/dL (0.2-1.3); Blood Urea Nitrogen 42 mg/dL (7-17); Calcium 10.5 mg/dL (8.4-10.2); Carbon Dioxide 38 mmol/L (22-32); Chloride 90 mmol/L (98-107); Estimated Glomerular Filt Rate 13.6 mL/min (>60); Globulin 3.3 g/dL (1.7-4.1); Glucose 196 mg/dL (80-110); HEMOLYSIS < 15 (0-50); Lipase 130 U/L (23-300); Potassium 3.7 mmol/L (3.4-5.1); Sodium 142 mmol/L (137-145); Total Protein 8.1 g/dL (6.3-8.2)
[2019-01-17 08:19] LABS: Lactate (Lactic Acid) 2.5 mmol/L (0.7-2.1)
[2019-01-17] MEDS: SODIUM CHLORIDE 0.9% 1,000 ML 1000 ML IV (09:37)
[2019-01-17] MEDS: PIPERACILLIN-TAZO 3.375 GM/50 ML FROZ.PIGGY IV (09:38)
[2019-01-17] MEDS: MORPHINE 5 MG/ML INJ 4 MG IV (09:41)
[2019-01-17] MEDS: ONDANSETRON 4 MG/2 ML INJ IV (09:51)
[2019-01-17 11:54] LABS: Reflexed Lactate in 2 Hours Y
--- NOTE | 2019-02-13 16:56 | PC.NURSE ---
zosyn 50 cc infused at 1006 without incident. normal saline 1000cc infused at 1008 without incident.
== END 2019-01-17 10:06 | disposition short-term general hospital (02) ==
PROVIDERS: Emergency Medicine; Emergency Provider Emergency Medicine; PCP Family Medicine
DX: A41.9 Sepsis, unspecified organism (principal); K56.2 Volvulus; N18.6 End stage renal disease
CPT/HCPCS: 36415; 36591; 51798; 74018; 74177; 80053; 83605; 83690; 85025; 85610; 85730; 87040; 96365; 96375; 96376; 99284; 99285; J2270; J2405; J2543; Q9967

== ENCOUNTER 2019-05-26 16:41 | Emergency (ER) | payer MEDICARE, SELFPAY ==
[2019-05-26 16:45] VITALS: BP 141/61; PULSE 84; RESP 16; TEMP 36.8; O2SAT 97
--- NOTE | 2019-05-26 16:53 | DI.RAD.S_ITS ---
PROCEDURE: XR ACUTE ABDOMEN SERIES INDICATIONS: abd pain/nausea/vomiting TECHNIQUE: One view chest and two views of the abdomen were acquired. COMPARISON: [facility], , XR ACUTE ABDOMEN SERIES, 09/25/2018, 11:05. FINDINGS: Surgical changes and devices: Surgical clips throughout the left abdomen. Chest: Mild left base scarring, chronic. Lungs are otherwise clear. Heart size is normal. No pleural effusions. No pneumoperitoneum. Abdomen: In the left upper quadrant and central abdomen. Mildly prominent centralized bowel loop. There is a paucity of gas in the colon. No suspicious calcifications. Visualized solid organ contours appear normal. Bones: No suspicious bony lesions. Moderate S-shaped scoliosis of the thoracolumbar spine. IMPRESSION: No air-fluid levels in the central bowel loops and stomach. Findings suspicious for ileus or early obstruction. Surgical changes are present in the left abdomen. CT scan recommended. Dictated by: Gina Sapp M.D. on 05/26/2019 at 16:33 Approved by: Gina Sapp M.D. on 05/26/2019 at 16:35
[2019-05-26] MEDS: ONDANSETRON 4 MG/2 ML INJ IV ×2 (17:41→18:41)
--- NOTE | 2019-05-26 17:44 | ED_ITS ---
HPI - Abdominal Pain General Chief Complaint: Abdominal Pain Stated Complaint: BLOCKAGE Time Seen by Provider: 05/26/19 17:40 Source: patient and family Mode of arrival: ambulatory Limitations: no limitations History of Present Illness HPI narrative: 78-year-old female end-stage renal disease on dialysis. Receive treatment on Saturday and Saturday. Received a full treatment yesterday of dialysis. Has had small bowel obstructions in the past with the most recent being within the past couple months. Here today for abdominal pain and nausea and vomiting. States that it started approximately 0700 hours this morning and has worsened throughout the day. He states that it feels like her prior bowel obstructions. Related Data Home Medications Medication Instructions Recorded Confirmed tetrahydrozoline [Visine] 1 gtt OP PRN PRN #0 12/14/11 05/26/19 Milk Of Magnesia Concentrated 30 ml PO DAILY PRN #0 02/03/18 05/26/19 polyethylene glycol 3350 [Miralax] 17 gm PO QDAY PRN #0 02/03/18 05/26/19 diphenhydramine HCl [Benadryl] 25 mg PO Q4-6H PRN 06/05/18 05/26/19 flaxseed oil 2,000 mg PO BID 06/05/18 05/26/19 Lactobacillus acidophilus 1 cap PO DAILY 08/21/18 05/26/19 [Probiotic] multivitamin [Daily-Julee] 1 tab PO DAILY 08/21/18 05/26/19 omega 8-uep-oxl-fish oil [Fish Oil] 2,000 mg PO BID 01/17/19 05/26/19 zinc 50 mg tablet 50 mg PO DAILY 02/11/19 05/26/19 furosemide 40 mg tablet 40 mg PO BID 04/02/19 05/26/19 diazepam [Valium] 30 mg PO BEDTIME 05/26/19 05/26/19 oxycodone-acetaminophen 1 tab PO TID 05/26/19 05/26/19 Previous Rx's Medication Instructions Recorded citalopram 20 mg tablet 60 mg PO DAILY #270 tab 05/25/19 Allergies Allergy/AdvReac Type Severity Reaction Status Date / Time acetaminophen [From TYLENOL] Allergy Mild LIMIT Verified 04/02/19 09:35 TYLENOL INTAKE, ONE KIDNEY cephalexin [CEPHALEXIN] Allergy Mild RASH Verified 04/02/19 09:35 Penicillins [PENICILLINS] Allergy Mild RASH Verified 04/02/19 09:35 ketorolac [KETOROLAC] Allergy Unknown NO TORADOL Verified 04/02/19 09:35 codeine [CODEINE] AdvReac Mild NAUSEA,VOMI Verified 04/02/19 09:35 TING,HALLUC INATIONS hydrocodone [HYDROCODONE] AdvReac Mild NAUSEA,VOMITING,DIDN'T Verified 04/02/19 09:35 WORK WELL TO CONTROL PAIN prednisone [PREDNISONE] AdvReac Mild SEVERE Verified 04/02/19 09:35 HALLUCINATIONS Review of Systems Constitutional Denies fever(s) Cardiovascular Denies chest pain and Denies dyspnea Respiratory Denies dyspnea Gastrointestinal Gastrointestinal: Reports abdominal pain, Reports nausea and Reports vomiting Genitourinary Comments: Still produces a small amount urine at baseline Musculoskeletal Denies myalgias and Denies arthralgias Integumentary/Breasts Denies rash Neurologic Denies behavioral changes Psychiatric Denies behavioral changes Hematologic/Lymphatic Denies easy bleeding and Denies easy bruising [facility] Medical History 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 (Acute) ESRD (end stage renal disease) on dialysis (Acute) Anxiety (Acute) History of renal cell cancer (Acute) Hypertension (Acute) S/p nephrectomy (Acute) SBO (small bowel obstruction) (Acute) Surgical History (Updated 01/17/19 @ 07:28 by Herb Santoyo MD) H/O carpal tunnel repair (Acute) H/O hernia repair (Acute) S/P DENIS-BSO (Acute) S/P tonsillectomy and adenoidectomy (Acute) Social History Smoking Status: Current every day smoker Social History Smoking Status: Current every day smoker Exam Initial Vital Signs Initial Vital Signs: Vital Signs Temperature 98.3 F 05/26/19 16:45 Pulse Rate 84 05/26/19 16:45 Respiratory Rate 16 05/26/19 16:45 Blood Pressure 141/61 H 05/26/19 16:45 Pulse Oximetry 97 05/26/19 16:45 Const General: cooperative, No comfortable (Comfortable), well developed and well groomed [facility] Head: normal to inspection and normocephalic Resp Effort & Inspection: normal respiratory effort Auscultation: clear to auscultation bilaterally Cardio Rate: regular rate Rhythm: regular rhythm GI Inspection: distended Palpation: soft, No firm and tender Skin Lesions: no lesions Rashes: no rashes Neuro General: alert and awake Cognition: normal cognition Speech: speech normal Extrem General: normal to inspection and capillary refill normal Psych Appearance: grossly normal and well kempt Scores GCS [place] coma scale eye opening: Spontaneous [place] coma scale verbal response: Orientated [place] coma scale motor response: Obey commands Klaus coma scale total score: 15 Course Orders Ordered: Sodium Chloride (Normal Saline 0.9%) 1,000 mls @ 125 mls/hr IV CONT MACRINA Last Admin: 05/26/19 22:33 Dose: 125 mls/hr Discontinued Medications Sodium Chloride (Normal Saline 0.9%) 1,000 mls @ 1,000 mls/hr IV BOLUS ONE Stop: 05/26/19 18:42 Last Infusion: 05/26/19 22:30 Dose: 0 mls/hr Admin: 05/26/19 18:04 Dose: 1,000 mls/hr Morphine Sulfate (Morphine) 4 mg IV NOW ONE Stop: 05/26/19 18:21 Last Admin: 05/26/19 18:40 Dose: 4 mg Morphine Sulfate (Morphine) 4 mg IV NOW ONE Stop: 05/26/19 20:51 Last Admin: 05/26/19 21:06 Dose: 4 mg Ondansetron HCl (Zofran) 4 mg IV NOW ONE Stop: 05/26/19 16:51 Last Admin: 05/26/19 17:41 Dose: 4 mg Ondansetron HCl (Zofran) 4 mg IV NOW ONE Stop: 05/26/19 18:21 Last Admin: 05/26/19 18:41 Dose: 4 mg Vital Signs - 8 hr 05/26/19 22:29 05/26/19 22:41 05/27/19 01:00 Pulse Rate 79 74 Respiratory Rate 18 18 Blood Pressure [Right Arm] 107/48 L 125/45 L Pulse Oximetry 97 99 05/27/19 03:00 Pulse Rate 76 Respiratory Rate 18 Blood Pressure [Right Arm] 148/63 H Pulse Oximetry 98 MDM - Abdominal Pain Medical Records Attestation: I reviewed the patient's medical records. Lab Data Attestation: I reviewed the patient's lab results. Result diagrams: 05/26/19 17:35 05/26/19 17:35 Lab Results 05/26/19 05/26/19 05/26/19 Range/Units 17:35 17:35 17:35 WBC 16.1 H (4.5-11.0) X10^3/uL RBC 4.18 (4.0-5.2) X10^6/uL Hgb 13.6 (12.0-16.0) g/dL Hct 41.5 (36-46) % MCV 99.4 (80-100) fL MCH 32.6 (26-34) PG MCHC 32.8 (30-36) % RDW 12.4 (11.6-14.8) % Plt Count 350 (150-400) X10^3/uL Neut % (Auto) 88.5 H (50-75) % Lymph % (Auto) 5.9 L (25-40) % [place] % (Auto) 4.9 (3-14) % Eos % (Auto) 0.3 L (2-4) % Baso % (Auto) 0.4 (0-2) % Neut # (Auto) 82137 H (9784-8907) /uL Lymph # (Auto) 1000 L (7054-9516) /uL [place] # (Auto) 800 (0-900) /uL Eos # (Auto) 100 (0-450) /uL Baso # (Auto) 100 (0-100) /uL PT 11.0 (10.1-12.7) SECONDS INR 1.0 (0.9-1.3) APTT 36 D (26.4-36.2) SECONDS Sodium 141 (137-145) mmol/L Potassium 4.5 (3.4-5.1) mmol/L Chloride 92 L (98-107) mmol/L Carbon Dioxide 39 H (22-32) mmol/L BUN 38 H (7-17) mg/dL Creatinine 3.20 H (0.52-1.04) mg/dL Estimated GFR 14.1 L (>60) mL/min BUN/Creatinine Ratio 11.9 (6-22) Glucose 137 H (80-110) mg/dL Lactate (0.7-2.1) mmol/L Calcium 10.9 H (8.4-10.2) mg/dL Total Bilirubin 0.3 (0.2-1.3) mg/dL AST 39 H (14-36) IU/L ALT 25 (9-52) IU/L Alkaline Phosphatase 145 H (38-126) U/L Total Protein 8.2 (6.3-8.2) g/dL Albumin 4.8 (3.5-5.0) g/dL Globulin 3.4 (1.7-4.1) g/dL Albumin/Globulin Ratio 1.4 (1.0-2.8) Lipase 445 H (23-300) U/L 05/26/19 Range/Units 19:40 WBC (4.5-11.0) X10^3/uL RBC (4.0-5.2) X10^6/uL Hgb (12.0-16.0) g/dL Hct (36-46) % MCV (80-100) fL MCH (26-34) PG MCHC (30-36) % RDW (11.6-14.8) % Plt Count (150-400) X10^3/uL Neut % (Auto) (50-75) % Lymph % (Auto) (25-40) % [place] % (Auto) (3-14) % Eos % (Auto) (2-4) % Baso % (Auto) (0-2) % Neut # (Auto) (8614-6452) /uL Lymph # (Auto) (9183-1806) /uL [place] # (Auto) (0-900) /uL Eos # (Auto) (0-450) /uL Baso # (Auto) (0-100) /uL PT (10.1-12.7) SECONDS INR (0.9-1.3) APTT (26.4-36.2) SECONDS Sodium (137-145) mmol/L Potassium (3.4-5.1) mmol/L Chloride (98-107) mmol/L Carbon Dioxide (22-32) mmol/L BUN (7-17) mg/dL Creatinine (0.52-1.04) mg/dL Estimated GFR (>60) mL/min BUN/Creatinine Ratio (6-22) Glucose (80-110) mg/dL Lactate 0.8 (0.7-2.1) mmol/L Calcium (8.4-10.2) mg/dL Total Bilirubin (0.2-1.3) mg/dL AST (14-36) IU/L ALT (9-52) IU/L Alkaline Phosphatase (38-126) U/L Total Protein (6.3-8.2) g/dL Albumin (3.5-5.0) g/dL Globulin (1.7-4.1) g/dL Albumin/Globulin Ratio (1.0-2.8) Lipase (23-300) U/L Imaging Data Abdominal x-ray: Radiologist's impression: [address] [address] XRay Report Signed Patient: Kristine Damon BMR#: [id number] : 2Acct:[id number] Age/Sex: 78 / FDate of Service: 05/26/19 Loc: ED Accession Number: [id number] Procedure: XR acute abdomen series Ordering Provider: Shae Martin MD PROCEDURE: XR ACUTE ABDOMEN SERIES INDICATIONS: abd pain/nausea/vomiting TECHNIQUE: One view chest and two views of the abdomen were acquired. COMPARISON: [facility], MIGUEL, XR ACUTE ABDOMEN SERIES, 09/25/2018, 11:05. FINDINGS: Surgical changes and devices: Surgical clips throughout the left abdomen. Chest: Mild left base scarring, chronic. Lungs are otherwise clear. Heart size is normal. No pleural effusions. No pneumoperitoneum. Abdomen: In the left upper quadrant and central abdomen. Mildly prominent centralized bowel loop. There is a paucity of gas in the colon. No suspicious calcifications. Visualized solid organ contours appear normal. Bones: No suspicious bony lesions. Moderate S-shaped scoliosis of the thoracolumbar spine. IMPRESSION: No air-fluid levels in the central bowel loops and stomach. Findings suspicious for ileus or early obstruction. Surgical changes are present in the left abdomen. CT scan recommended. Dictated by: Gina Sapp M.D. on 05/26/2019 at 16:33 Approved by: Gina Sapp M.D. on 05/26/2019 at 16:35 CT scan - abdomen: Radiologist's impression: [address] [id number] [address] Scan Report Signed Patient: Kristine Damon BMR#: [id number] : 2Acct:[id number] Age/Sex: 78 / FDate of Service: 05/26/19 Loc: ED Accession Number: [id number] Procedure: CT abdomen pelvis wo con Ordering Provider: Rosalino Sibley D.O. PROCEDURE: CT ABDOMEN PELVIS WO CON INDICATIONS: possible SBO TECHNIQUE: Noncontrast 5 mm thick sections acquired from the diaphragms to the symphysis. 5 mm thick coronal and sagittal reformats were then performed. For radiation dose reduction, the following was used: automated exposure control, adjustment of mA and/or kV according to patient size. COMPARISON: [facility], CR, XR ACUTE ABDOMEN SERIES, 05/26/2019, 17:07. FINDINGS: Image quality: Excellent. Lung bases: Lung bases are clear. Heart size is normal. Urinary system: The left kidney appears surgically absent. Simple appearing right renal cyst measuring 4 cm. No hydronephrosis. Additional smaller presumed right renal cysts although technically too small to characterize accurately. Possible right renal calculus in the inferior pole measuring 2-3 mm. Other solid organs: Liver is normal in size. Gallbladder contains a 3 mm calculus. Pancreas is normal in contours. Spleen is normal in size. No adrenal nodules. Peritoneum and bowel: Small hiatal hernia. Multiple dilated small bowel loops seen throughout the abdomen and pelvis. No specific transition point identified although a few decompressed loops of ileum are thought to be seen. The colon is relatively decompressed. Presumed dilated large bowel present in the deep pelvis image 55 series 2. No free fluid or air. Scattered air-fluid levels are noted. Nodes and vessels: No retroperitoneal or mesenteric adenopathy by size criteria. Aorta and inferior vena cava are normal in caliber. Abdominal wall: No ventral hernias. Pelvis: No free pelvic fluid. No inguinal hernias or adenopathy. Bones: No suspicious bony lesions. No vertebral body compression fractures. Diffuse spondylosis and facet arthropathy IMPRESSION: Multiple dilated small bowel loops, most suspicious for small bowel obstruction, predominantly involving the jejunum, although no specific transition point identified. Swirling appearance of the mesentery on image 42 in the right lower quadrant ra ising possibility of adhesion or internal hernia, however this is technically indeterminate. Small hiatal hernia. Incidental cholelithiasis. Nonobstructive right nephrolithiasis. Dictated by: Abebe Messina M.D. on 05/26/2019 at 19:18 Approved by: Abebe Messina M.D. on 05/26/2019 at 19:28 [facility] Narrative Medical decision making narrative: Patient with CT scan and physical exam consistent with a small-bowel obstruction. Given her history of dialysis and her prior need for surgery I did contact [facility]. I did discuss the case with the on-call surgeon who stated that they would be happy to evaluate the patient however did recommend the patient be admitted under the medicine service secondary to her dialysis. I did discuss the case with Dr. Hernandez with the medicine service who accepted the patient in transfer. Initially there was no bed available so the patient remained here in our emergency department overnight. She had no emergent electrolyte issues. Patient only required minimal pain medication. We discussed NG tube however the patient declined this. She did state that she would accept it if her symptoms started to worse her she had more vomiting. Patient was informed of the delay in transport. She expressed understanding. We then received a call from [facility] who accepted the patient. Patient is stable for transfer. Discharge Plan Departure Patient Disposition: [facility] Clinical Impression: SBO (small bowel obstruction), Acute renal failure on dialysis Prescriptions: No Action tetrahydrozoline [Visine] 15 ML drops 1 gtt OP PRN PRN (Reason: Dry Eyes) Qty: 0 RF: 0 Milk Of Magnesia Concentrated 2,400 MG/10 ML suspension 30 ml PO DAILY PRN (Reason: Constipation) Qty: 0 RF: 0 polyethylene glycol 3350 [Miralax] 119 GM powder 17 gm PO QDAY PRN (Reason: Constipation) Qty: 0 RF: 0 citalopram 20 mg tablet 60 mg PO DAILY Qty: 270 RF: 3 zinc 50 mg tablet 50 mg PO DAILY RF: 0 furosemide [Lasix] 40 mg tablet 40 mg PO BID RF: 0 diphenhydramine HCl [Benadryl] 25 mg Capsule 25 mg PO Q4-6H PRN (Reason: Allergic Symptoms) RF: 0 flaxseed oil 1,000 mg Capsule 2,000 mg PO BID RF: 0 Probiotic 10 billion cell Capsule 1 cap PO DAILY RF: 0 multivitamin [Daily-Julee] Tablet 1 tab PO DAILY RF: 0 omega 9-vzx-ela-fish oil [Fish Oil] 1,000 mg (120 mg-180 mg) Capsule 2,000 mg PO BID RF: 0 oxycodone-acetaminophen 5-325 mg tablet 1 tab PO TID RF: 0 diazepam [Valium] 10 mg tablet 30 mg PO BEDTIME RF: 0 Referrals: Sagar Silva MD [Primary Care Provider] -
[2019-05-26 17:49] LABS: Add Manual Diff / Slide Review NO; Basophils Absolute Auto 100 /uL (0-100); Basophils Percent Auto 0.4 % (0-2); Eosinophils Absolute Auto 100 /uL (0-450); Eosinophils Percent Auto 0.3 % (2-4); Hematocrit 41.5 % (36-46); Hemoglobin 13.6 g/dL (12.0-16.0); Lymphocytes Absolute Auto 1000 /uL (1100-4500); Lymphocytes Percent Auto 5.9 % (25-40); Mean Corpuscular HGB Conc 32.8 % (30-36); Mean Corpuscular Hemoglobin 32.6 PG (26-34); Mean Corpuscular Volume 99.4 fL (80-100); Monocytes Absolute Auto 800 /uL (0-900); Monocytes Percent Auto 4.9 % (3-14); Neutrophils Absolute Auto 14300 /uL (1500-7000); Neutrophils Percent Auto 88.5 % (50-75); Platelet Count 350 X10^3/uL (150-400); Red Blood Cell Count 4.18 X10^6/uL (4.0-5.2); Red Cell Distribution Width 12.4 % (11.6-14.8); White Blood Cell Count 16.1 X10^3/uL (4.5-11.0)
[2019-05-26 17:53] LABS: PTT Partial Thromboplastin Tim 36 SECONDS (26.4-36.2)
[2019-05-26 17:55] LABS: Alanine Aminotransferase 25 IU/L (9-52); Albumin 4.8 g/dL (3.5-5.0); Albumin Globulin Ratio 1.4 (1.0-2.8); Alkaline Phosphatase 145 U/L (38-126); Aspartate Aminotransferase 39 IU/L (14-36); BUN Creatinine Ratio 11.9 (6-22); Bilirubin Total 0.3 mg/dL (0.2-1.3); Blood Urea Nitrogen 38 mg/dL (7-17); Calcium 10.9 mg/dL (8.4-10.2); Chloride 92 mmol/L (98-107); Estimated Glomerular Filt Rate 14.1 mL/min (>60); Globulin 3.4 g/dL (1.7-4.1); Glucose 137 mg/dL (80-110); HEMOLYSIS < 15 (0-50); Lipase 445 U/L (23-300); Potassium 4.5 mmol/L (3.4-5.1); Sodium 141 mmol/L (137-145); Total Protein 8.2 g/dL (6.3-8.2)
--- NOTE | 2019-05-26 17:59 | PC.NURSE ---
oral contrast at 1800
[2019-05-26 18:01] LABS: Carbon Dioxide 39 mmol/L (22-32)
[2019-05-26] MEDS: SODIUM CHLORIDE 0.9% 1,000 ML 1000 ML IV (18:04)
--- NOTE | 2019-05-26 18:14 | DI.CT.S_ITS ---
PROCEDURE: CT ABDOMEN PELVIS WO CON INDICATIONS: possible SBO TECHNIQUE: Noncontrast 5 mm thick sections acquired from the diaphragms to the symphysis. 5 mm thick coronal and sagittal reformats were then performed. For radiation dose reduction, the following was used: automated exposure control, adjustment of mA and/or kV according to patient size. COMPARISON: [facility], CR, XR ACUTE ABDOMEN SERIES, 05/26/2019, 17:07. FINDINGS: Image quality: Excellent. Lung bases: Lung bases are clear. Heart size is normal. Urinary system: The left kidney appears surgically absent. Simple appearing right renal cyst measuring 4 cm. No hydronephrosis. Additional smaller presumed right renal cysts although technically too small to characterize accurately. Possible right renal calculus in the inferior pole measuring 2-3 mm. Other solid organs: Liver is normal in size. Gallbladder contains a 3 mm calculus. Pancreas is normal in contours. Spleen is normal in size. No adrenal nodules. Peritoneum and bowel: Small hiatal hernia. Multiple dilated small bowel loops seen throughout the abdomen and pelvis. No specific transition point identified although a few decompressed loops of ileum are thought to be seen. The colon is relatively decompressed. Presumed dilated large bowel present in the deep pelvis image 55 series 2. No free fluid or air. Scattered air-fluid levels are noted. Nodes and vessels: No retroperitoneal or mesenteric adenopathy by size criteria. Aorta and inferior vena cava are normal in caliber. Abdominal wall: No ventral hernias. Pelvis: No free pelvic fluid. No inguinal hernias or adenopathy. Bones: No suspicious bony lesions. No vertebral body compression fractures. Diffuse spondylosis and facet arthropathy IMPRESSION: Multiple dilated small bowel loops, most suspicious for small bowel obstruction, predominantly involving the jejunum, although no specific transition point identified. Swirling appearance of the mesentery on image 42 in the right lower quadrant raising possibility of adhesion or internal hernia, however this is technically indeterminate. Small hiatal hernia. Incidental cholelithiasis. Nonobstructive right nephrolithiasis. Dictated by: Abebe Messina M.D. on 05/26/2019 at 19:18 Approved by: Abebe Messina M.D. on 05/26/2019 at 19:28
[2019-05-26 18:30] VITALS: BP 149/72; PULSE 82; RESP 18; O2SAT 98
[2019-05-26] MEDS: MORPHINE 4 MG/ML INJ IV ×2 (18:40→21:06)
[2019-05-26 19:57] LABS: Lactate (Lactic Acid) 0.8 mmol/L (0.7-2.1)
[2019-05-26 22:29] VITALS: PULSE 79; RESP 18; O2SAT 97
[2019-05-26] MEDS: SODIUM CHLORIDE 0.9% 1,000 ML 125 ML IV (22:33)
[2019-05-26 22:41] VITALS: BP 107/48
[2019-05-27 01:00] VITALS: BP 125/45; PULSE 74; RESP 18; O2SAT 99
[2019-05-27 03:00] VITALS: BP 148/63; PULSE 76; RESP 18; O2SAT 98
[2019-05-27] MEDS: MORPHINE 4 MG/ML INJ IV (05:17)
[2019-05-27] MEDS: ONDANSETRON 4 MG/2 ML INJ IV (05:17)
[2019-05-27 05:18] VITALS: BP 130/58; PULSE 85; RESP 20; O2SAT 97
--- NOTE | 2019-05-27 05:19 | PC.NURSE ---
She has a small purse with insurance cards a yellow ring and clothes with her.
--- NOTE | 2019-05-27 05:21 | PC.NURSE ---
She ambulated to bathroom and back without oxygen on.Her o2 sats wre 89-9o percent after,she was placed back on one liter via nasal cannulaShe was also medicated for abdominal pain and nausea.
[2019-05-27 06:24] VITALS: BP 129/59; PULSE 80; RESP 18; O2SAT 97
--- NOTE | 2019-05-27 06:57 | PC.NURSE ---
late entry. 1830 md at bedside/ pt refused ng tube at this time.
== END 2019-05-27 06:25 | disposition short-term general hospital (02) ==
PROVIDERS: Emergency Medicine; Emergency Provider Emergency Medicine; PCP Family Medicine
DX: K56.609 Unspecified intestinal obstruction, unspecified as to partial versus complete obstruction (principal); N17.9 Acute kidney failure, unspecified
CPT/HCPCS: 36415; 36591; 74022; 74176; 80053; 83605; 83690; 85025; 85610; 85730; 93005; 96361; 96374; 96375; 96376; 99284; 99285; J2270; J2405

== ENCOUNTER → 2019-10-21 07:44 | Outpatient (CLI) | payer MEDICARE, SELFPAY ==
[2019-10-21 09:25] LABS: BUN Creatinine Ratio 17.2 (6-22); Blood Urea Nitrogen 43 mg/dL (7-17); Carbon Dioxide 37 mmol/L (22-32); Chloride 94 mmol/L (98-107); Estimated Glomerular Filt Rate 18.7 mL/min (>60); Glucose 83 mg/dL (80-110); HEMOLYSIS < 15 (0-50); Potassium 4.4 mmol/L (3.4-5.1); Sodium 137 mmol/L (137-145)
== END ==
PROVIDERS: PCP Family Medicine; Visit Provider Family Medicine
DX: N19 Unspecified kidney failure (principal)
CPT/HCPCS: 36415; 80048

== ENCOUNTER 2019-12-21 06:07 | Emergency (ER) | payer MEDICARE, SELFPAY ==
[2019-12-21 06:16] VITALS: BP 157/67; PULSE 62; RESP 15; TEMP 36.7; O2SAT 94; BMI 19.5
--- NOTE | 2019-12-21 06:53 | ED.WOUNDLAC ---
HPI - Wound/Laceration General Chief Complaint: Wound/Laceration Stated Complaint: left hand injury bleeding slipped on ice Time Seen by Provider: 12/21/19 06:23 Source: patient Mode of arrival: Ambulatory Limitations: no limitations History of Present Illness HPI narrative: The patient was taking her dog over to her cat dog or other pet groomer this morning. When arriving she slipped on ice. She is felt to the left. She struck her left hand against the ground, mom to knee. There is no head, neck or torso injuring. She has a difficulty breathing or chest pain. She has no abdominal injury or abdominal pain. She has a laceration to the left hand. She complains of no left shoulder, elbow or forearm pain. She moves all extremities left hand without difficulty. She fell on the left knee, but has no knee pain. She is ambulatory. There are no issues with her legs. Related Data Home Medications Medication Instructions Recorded Confirmed tetrahydrozoline [Visine] 1 gtt OP PRN PRN #0 12/14/11 10/29/19 Milk Of Magnesia Concentrated 30 ml PO DAILY PRN #0 02/03/18 10/29/19 polyethylene glycol 3350 [Miralax] 17 gm PO QDAY PRN #0 02/03/18 10/29/19 diphenhydramine HCl [Benadryl] 25 mg PO Q4-6H PRN 06/05/18 10/29/19 Lactobacillus acidophilus 1 cap PO DAILY 08/21/18 10/29/19 [Probiotic] multivitamin [Daily-Julee] 1 tab PO DAILY 08/21/18 10/29/19 omega 9-njl-pky-fish oil [Fish Oil] 2,000 mg PO BID 01/17/19 10/29/19 zinc 50 mg tablet 50 mg PO DAILY 02/11/19 10/29/19 furosemide 40 mg tablet 40 mg PO BID 04/02/19 10/29/19 Previous Rx's Medication Instructions Recorded citalopram 20 mg tablet 60 mg PO DAILY #270 tab 05/25/19 diazepam 10 mg tablet 30 mg PO BEDTIME #270 tab 10/29/19 oxycodone-acetaminophen 5 mg-325 1 tab PO TID PRN #120 tab 10/29/19 mg tablet Allergies Allergy/AdvReac Type Severity Reaction Status Date / Time acetaminophen [From TYLENOL] Allergy Mild LIMIT Verified 10/29/19 10:09 TYLENOL INTAKE, ONE KIDNEY cephalexin [CEPHALEXIN] Allergy Mild RASH Verified 10/29/19 10:09 Penicillins [PENICILLINS] Allergy Mild RASH Verified 10/29/19 10:09 ketorolac [KETOROLAC] Allergy Unknown NO TORADOL Verified 10/29/19 10:09 codeine [CODEINE] AdvReac Mild NAUSEA,VOMI Verified 10/29/19 10:09 TING,HALLUC INATIONS hydrocodone [HYDROCODONE] AdvReac Mild NAUSEA,VOMITING,DIDN'T Verified 10/29/19 10:09 WORK WELL TO CONTROL PAIN prednisone [PREDNISONE] AdvReac Mild SEVERE Verified 10/29/19 10:09 HALLUCINATIONS Review of Systems Constitutional Constitutional: Denies frequent falls Comments: No recent illness or other injuries. ENT Ears, Nose, Mouth, and Throat: Denies dizziness Musculoskeletal Musculoskeletal: Denies numbness Comments: Left hand laceration. Fell on left knee with no pain. Integumentary/Breasts Comments: Left hand injuries noted HPI. No additional injuries. No rashes. 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 (Acute) ESRD (end stage renal disease) on dialysis (Acute) History of renal cell cancer (Acute) Hypertension (Acute) S/p nephrectomy (Acute) SBO (small bowel obstruction) (Acute) Surgical History H/O carpal tunnel repair (Acute) H/O hernia repair (Acute) S/P DENIS-BSO (Acute) S/P tonsillectomy and adenoidectomy (Acute) Social History Smoking Status: Current every day smoker Smoking Status: Current every day smoker alcohol intake frequency: holidays/special occasions only Substance Use Type: does not use Exam Initial Vital Signs Initial Vital Signs: Vital Signs Temperature 98.1 F 12/21/19 06:16 Pulse Rate 62 02/03/20 06:16 Respiratory Rate 15 12/21/19 06:16 Blood Pressure 157/67 H 12/21/19 06:16 Pulse Oximetry 94 12/21/19 06:16 Const General: cooperative and well developed Nutritional Appearance: well nourished Skin Lesions: no lesions Rashes: no rashes Neuro General: alert, oriented x3, gait normal and no focal motor deficits Speech: speech normal Extrem Other: The left elbow and forearm are nontender. She has full range of motion left wrist, no snuffbox tenderness or obvious deformity. She has a 6 cm skin tear to the ulnar side of the hand. The metacarpals shown no deformity or tenderness. She has full range of motion of the MCPs and throughout her digits. The left radial pulse is normal. Her left knee shows no evidence of trauma, and moves without difficulty. There is no contusion or edema. Her right extremities are atraumatic Psych Appearance: well kempt Mental Status: mental status grossly normal Attitude: cooperative Thought Content: normal Judgment: judgment good Procedures Laceration Repair Laceration 1: Site: hand Side (If applicable): left Description: flap and irregular Depth: simple, single layer Amount of anesthesia used (mL): 0 Pre-repair: wound explored, irrigated extensively and extensive debridement Skin layer closed with: nylon Size (cm): 5-0 and other (The proximal aspect of the wound required 2 surgeries due to ongoing hemorrhage. The remainder of the wound was closed with Dermabond.) Course Course Course Narrative: The patient's left hand was stressed in gauze over the wound by the patient's nurse prior to discharge. The patient is not complaining about significant pain. Bleeding has ceased. The patient tolerated procedure well. Vital Signs Vital signs: Vital Signs - 8 hr 12/21/19 06:16 Temperature 98.1 F Pulse Rate 62 Respiratory Rate 15 Blood Pressure 157/67 H Pulse Oximetry 94 Discharge Plan Departure Patient Disposition: Home Clinical Impression: Laceration of hand, left Qualifiers: Encounter type: initial encounter Foreign body presence: without foreign body Qualified Code(s): S61.412A - Laceration without foreign body of left hand, initial encounter Discharge Date/Time: 12/21/19 07:25 Instructions: DI for Laceration Repair Activity Restrictions/Additional Instructions: Keep the bandage in place for 2 days. Follow-up with your doctor in 7 days for suture removal, return here as needed. Prescriptions: No Action tetrahydrozoline [Visine] 15 ML drops 1 gtt OP PRN PRN (Reason: Dry Eyes) Qty: 0 RF: 0 Milk Of Magnesia Concentrated 2,400 MG/10 ML suspension 30 ml PO DAILY PRN (Reason: Constipation) Qty: 0 RF: 0 polyethylene glycol 3350 [Miralax] 119 GM powder 17 gm PO QDAY PRN (Reason: Constipation) Qty: 0 RF: 0 citalopram 20 mg tablet 60 mg PO DAILY Qty: 270 RF: 3 diazepam [Valium] 10 mg tablet 30 mg PO BEDTIME Qty: 270 RF: 3 oxycodone-acetaminophen 5-325 mg tablet 1 tab PO TID PRN (Reason: pain) Qty: 120 RF: 0 zinc 50 mg tablet 50 mg PO DAILY RF: 0 furosemide [Lasix] 40 mg tablet 40 mg PO BID RF: 0 diphenhydramine HCl [Benadryl] 25 mg Capsule 25 mg PO Q4-6H PRN (Reason: Allergic Symptoms) RF: 0 Probiotic 10 billion cell Capsule 1 cap PO DAILY RF: 0 multivitamin [Daily-Julee] Tablet 1 tab PO DAILY RF: 0 omega 5-vsw-mfz-fish oil [Fish Oil] 1,000 mg (120 mg-180 mg) Capsule 2,000 mg PO BID RF: 0 Referrals: Sagar Silva MD [Primary Care Provider] -
== END 2019-12-21 07:25 | disposition home or self-care (01) ==
PROVIDERS: Emergency Provider Emergency Medicine; PCP Family Medicine
DX: S61.412A Laceration without foreign body of left hand, initial encounter (principal); W00.0XXA Fall on same level due to ice and snow, initial encounter
CPT/HCPCS: 99281; 99282

== ENCOUNTER 2019-12-23 07:54 | Emergency (ER) | payer MEDICARE, SELFPAY ==
[2019-12-23 08:03] VITALS: BP 124/80; PULSE 69; RESP 18; TEMP 36.8; O2SAT 97
--- NOTE | 2019-12-23 08:13 | DI.RAD.S_ITS ---
PROCEDURE: XR WRIST LT MIN 3V INDICATIONS: swelling post injury TECHNIQUE: 3 views of the wrist were acquired. COMPARISON: [facility], , WRIST MINIMUM 3 VIEWS LEFT, 01/19/2018, 15:12. FINDINGS: Bones: No fractures or dislocations. No suspicious bony lesions. Remote ulnar styloid avulsion. Distal radial deformity from previous fracture. Question widening between the scaphoid and lunate. Radiocarpal degenerative arthritis. Moderate degenerative arthritis at the base of the thumb. Soft tissues: No suspicious soft tissue calcifications. IMPRESSION: 1. 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 2. No acute fracture or dislocation. 3. Question chronic scapholunate ligament disruption Dictated by: Jabari Jara M.D. on 12/23/2019 at 8:28 Approved by: Jabari Jara M.D. on 12/23/2019 at 8:30
--- NOTE | 2019-12-23 08:13 | DI.RAD.S_ITS ---
PROCEDURE: XR HAND LT MIN 3V INDICATIONS: swelling post injury TECHNIQUE: 3 views of the hand(s) acquired. COMPARISON: Located Within [facility], CR, XR WRIST LT MIN 3V, 12/23/2019, 8:10. Located Within [facility], CR, HAND 3V LEFT, 01/19/2018, 15:12. FINDINGS: Bones: No acute-appearing or displaced fractures are seen. There is a remote ulnar styloid fracture seen, with poor healing. There is a remote, healed distal radial fracture. Degenerative changes are seen throughout which are most prominent involving the distal interphalangeal joints and the 1st carpometacarpal joint. Soft tissues: No suspicious soft tissue calcifications. IMPRESSION: No acute fractures are seen on these plain films. If there is focal tenderness, or other clinical concern for a fracture not seen on these images in this patient with a given history of trauma, please consider a dedicated CT or a short-term followup plain film series (in 1-2 weeks) for further evaluation. Remote, poorly healed ulnar styloid fracture. Remote distal radial fracture. Degenerative changes are seen. Dictated by: Gerardo Zayas M.D. on 12/23/2019 at 9:01 Approved by: Gerardo Zayas M.D. on 12/23/2019 at 9:06
--- NOTE | 2019-12-23 08:53 | ED_ITS ---
HPI - Extremity Injury (Upper) General Chief Complaint: Extremity Injury, Upper Stated Complaint: CAME IN SATURDAY AND L HAND POSSIBLE INFECTION Time Seen by Provider: 12/23/19 08:53 Source: patient Mode of arrival: Ambulatory Limitations: no limitations History of Present Illness HPI narrative: This is a 79-year-old female comes emergency department with complaint of possible left hand infection. Patient states that she had a fall on Saturday after slipping on the ice. She had a laceration which was repaired. Since then she start having some swelling on Saturday. She did not notice much on Saturday. She has had some blotchy redness and she states pain has been increasing mildly. She did take a pain pill today with her normal medication oxycodone she has not had fevers. She denies any swelling extending up the arm. No numbness, no weakness or skin changes. She states she can move her hand normally. Patient denies any chest pain, no shortness of breath, no nausea vomiting or other GI or urinary symptoms. She is a dialysis patient on Saturday and Fridays. She states she has an allergy to ampicillin which causes hives. Patient has a history of osteomyelitis on her foot in the past. She is unsure if she has ever had MRSA. Related Data Home Medications Medication Instructions Recorded Confirmed tetrahydrozoline [Visine] 1 gtt OP PRN PRN #0 12/14/11 10/29/19 Milk Of Magnesia Concentrated 30 ml PO DAILY PRN #0 02/03/18 10/29/19 polyethylene glycol 3350 [Miralax] 17 gm PO QDAY PRN #0 02/03/18 10/29/19 diphenhydramine HCl [Benadryl] 25 mg PO Q4-6H PRN 06/05/18 10/29/19 Lactobacillus acidophilus 1 cap PO DAILY 08/21/18 10/29/19 [Probiotic] multivitamin [Daily-Julee] 1 tab PO DAILY 08/21/18 10/29/19 omega 8-owa-rnb-fish oil [Fish Oil] 2,000 mg PO BID 01/17/19 10/29/19 zinc 50 mg tablet 50 mg PO DAILY 02/11/19 10/29/19 furosemide 40 mg tablet 40 mg PO BID 04/02/19 10/29/19 Previous Rx's Medication Instructions Recorded citalopram 20 mg tablet 60 mg PO DAILY #270 tab 05/25/19 diazepam 10 mg tablet 30 mg PO BEDTIME #270 tab 10/29/19 oxycodone-acetaminophen 5 mg-325 1 tab PO TID PRN #120 tab 10/29/19 mg tablet clindamycin HCl 300 mg PO QID #40 cap 12/23/19 Allergies Allergy/AdvReac Type Severity Reaction Status Date / Time acetaminophen [From TYLENOL] Allergy Mild LIMIT Verified 10/29/19 10:09 TYLENOL INTAKE, ONE KIDNEY cephalexin [CEPHALEXIN] Allergy Mild RASH Verified 10/29/19 10:09 Penicillins [PENICILLINS] Allergy Mild RASH Verified 10/29/19 10:09 ketorolac [KETOROLAC] Allergy Unknown NO TORADOL Verified 10/29/19 10:09 codeine [CODEINE] AdvReac Mild NAUSEA,VOMI Verified 10/29/19 10:09 TING,HALLUC INATIONS hydrocodone [HYDROCODONE] AdvReac Mild NAUSEA,VOMITING,DIDN'T Verified 10/29/19 10:09 WORK WELL TO CONTROL PAIN prednisone [PREDNISONE] AdvReac Mild SEVERE Verified 10/29/19 10:09 HALLUCINATIONS Review of Systems Review of Systems ROS Unobtainable: All systems reviewed & are unremarkable except as noted in HPI and below 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 (Acute) ESRD (end stage renal disease) on dialysis (Acute) History of renal cell cancer (Acute) Hypertension (Acute) S/p nephrectomy (Acute) SBO (small bowel obstruction) (Acute) Surgical History H/O carpal tunnel repair (Acute) H/O hernia repair (Acute) S/P DENIS-BSO (Acute) S/P tonsillectomy and adenoidectomy (Acute) Social History Smoking Status: Current every day smoker Smoking Status: Current every day smoker alcohol intake frequency: holidays/special occasions only Substance Use Type: does not use Exam Narrative Exam Narrative: GENERAL: Alert and oriented x three, well-nourished thin female in mild distress HEENT: Head normocephalic, atraumatic, EOMI, pupils reactive, face symmetric, moist mucous membranes NECK: Supple, full range of motion CARDIOVASCULAR: Regular rate and rhythm without murmurs, rubs or gallops. RESPIRATORY: Breath sounds equal bilaterally, no wheezes rales or rhonchi. ABDOMEN: Soft, nontender. Normoactive bowel sounds all 4 quadrants. No guarding or rebound, rigidity, no mass EXTREMITIES: Normal range of motion, no clubbing. Patient has moderate edema in the left extending into the fingers particularly 4th there and erthema. There is no discharge from the site. There is no drainage. The incision itself looks clean, dry and intact. Patient has full range of motion of all 5 fingers with no pain with extension. She has mild pain with palpation over the dorsum of the hand. No distinct bony tenderness of the left hand or upper extremity. 2+ radial pulse. Patient has a fistula in her left upper extremity which has good. Neurovascularly intact NEUROLOGICAL: Cranial nerves II through XII grossly intact. Moving all extremities SKIN: Warm, dry, no petechiae, Initial Vital Signs Initial Vital Signs: Vital Signs Temperature 98.3 F 12/23/19 08:03 Pulse Rate 69 12/23/19 08:03 Respiratory Rate 18 12/23/19 08:03 Blood Pressure 124/80 12/23/19 08:03 Pulse Oximetry 97 12/23/19 08:03 Course Orders Ordered: Discontinued Medications Bacitracin (Bacitracin) 1 applic TOP NOW ONE Stop: 12/23/19 09:41 Last Admin: 12/23/19 09:53 Dose: 1 applic Documented by: INGA Vital Signs Vital signs: Vital Signs - 8 hr 12/23/19 08:03 12/23/19 09:53 Temperature 98.3 F Pulse Rate 69 66 Respiratory Rate 18 12 Blood Pressure 124/80 Blood Pressure [Right Arm] 128/70 Pulse Oximetry 97 MDM - Extremity Injury (Upper) Imaging Data wrist xray: Radiologist's Impression: [address] [address] XRay Report Signed Patient: Kristine Damon BMR#: [id number] : 2Acct:[id number] Age/Sex: 79 / FDate of Service: 12/23/19 Loc: ED Accession Number: [id number] Procedure: XR hand LT min 3V Ordering Provider: Marce Post D.O. PROCEDURE: XR HAND LT MIN 3V INDICATIONS: swelling post injury TECHNIQUE: 3 views of the hand(s) acquired. COMPARISON: [facility], XR WRIST LT MIN 3V, 12/23/2019, 8:10. [facility], HAND 3V LEFT, 01/19/2018, 15:12. FINDINGS: Bones: No acute-appearing or displaced fractures are seen. There is a remote ulnar styloid fracture seen, with poor healing. There is a remote, healed distal radial fracture. Degenerative changes are seen throughout which are most prominent involving the distal interphalangeal joints and the 1st carpometacarpal joint. Soft tissues: No suspicious soft tissue calcifications. IMPRESSION: No acute fractures are seen on these plain films. If there is focal tenderness, or other clinical concern for a fracture not seen on these images in this patient with a given history of trauma, please consider a dedicated CT or a short-term followup plain film series (in 1-2 weeks) for further evaluation. Remote, poorly healed ulnar styloid fracture. Remote distal radial fracture. Degenerative changes are seen. Dictated by: Gerardo Zayas M.D. on 12/23/2019 at 9:01 Approved by: Gerardo Zayas M.D. on 12/23/2019 at 9:06 hand xray: Radiologist's Impression: [place] [address] XRay Report Signed Patient: Kristine Damon BMR#: [id number] : 2Acct:[id number] Age/Sex: 79 / FDate of Service: 12/23/19 Loc: ED Accession Number: [id number] Procedure: XR wrist LT min 3V Ordering Provider: Marce Post D.O. PROCEDURE: XR WRIST LT MIN 3V INDICATIONS: swelling post injury TECHNIQUE: 3 views of the wrist were acquired. COMPARISON: [facility], WRIST MINIMUM 3 VIEWS LEFT, 01/19/2018, 15:12. FINDINGS: Bones: No fractures or dislocations. No suspicious bony lesions. Remote ulnar styloid avulsion. Distal radial deformity from previous fracture. Question widening between the scaphoid and lunate. Radiocarpal degenerative arthritis. Moderate degenerative arthritis at the base of the thumb. Soft tissues: No suspicious soft tissue calcifications. IMPRESSION: 1. 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 2. No acute fracture or dislocation. 3. Question chronic scapholunate ligament disruption Dictated by: Jabari Jara M.D. on 12/23/2019 at 8:28 Approved by: Jabari Jara M.D. on 12/23/2019 at 8:30 [facility] Narrative Medical decision making narrative: Ring was removed in ED. Patient has a localized cellulitis. Discussed with patient I would like for her to have 24 hour recheck. If she is not able to see your physician tomorrow would like for her to return here for evaluation. Discharge Plan Departure Patient Disposition: Home Clinical Impression: Cellulitis of hand, left, Laceration of left hand with infection Discharge Date/Time: 12/23/19 09:55 Instructions: DI for Cellulitis -- Adult Activity Restrictions/Additional Instructions: Follow-up in 24 hours for recheck, if you cannot follow-up with her primary care physician I would ask that he return to the emergency department for recheck. Take antibiotics until gone. Prescription was sent to [facility]. Continue home medications as prescribed. Return to the ER for fevers greater 100.4 F, increasing redness, swelling, increasing pain, purulent discharge or drainage from the wound, rapidly worsening redness or swelling extending up your arm, new chest pain, shortness of breath, nausea vomiting or other new or concerning symptoms. Prescriptions: New clindamycin HCl 300 mg capsule 300 mg PO QID Qty: 40 RF: 0 No Action tetrahydrozoline [Visine] 15 ML drops 1 gtt OP PRN PRN (Reason: Dry Eyes) Qty: 0 RF: 0 Milk Of Magnesia Concentrated 2,400 MG/10 ML suspension 30 ml PO DAILY PRN (Reason: Constipation) Qty: 0 RF: 0 polyethylene glycol 3350 [Miralax] 119 GM powder 17 gm PO QDAY PRN (Reason: Constipation) Qty: 0 RF: 0 citalopram 20 mg tablet 60 mg PO DAILY Qty: 270 RF: 3 diazepam [Valium] 10 mg tablet 30 mg PO BEDTIME Qty: 270 RF: 3 oxycodone-acetaminophen 5-325 mg tablet 1 tab PO TID PRN (Reason: pain) Qty: 120 RF: 0 zinc 50 mg tablet 50 mg PO DAILY RF: 0 furosemide [Lasix] 40 mg tablet 40 mg PO BID RF: 0 diphenhydramine HCl [Benadryl] 25 mg Capsule 25 mg PO Q4-6H PRN (Reason: Allergic Symptoms) RF: 0 Probiotic 10 billion cell Capsule 1 cap PO DAILY RF: 0 multivitamin [Daily-Julee] Tablet 1 tab PO DAILY RF: 0 omega 4-dcf-zns-fish oil [Fish Oil] 1,000 mg (120 mg-180 mg) Capsule 2,000 mg PO BID RF: 0 Referrals: Sagar Silva MD [Primary Care Provider] -
[2019-12-23 09:53] VITALS: BP 128/70; PULSE 66; RESP 12
[2019-12-23] MEDS: BACITRACIN OINT 0.9 GM PCKT 1 APPLIC TOP (09:53)
== END 2019-12-23 09:55 | disposition home or self-care (01) ==
PROVIDERS: Emergency Provider Emergency Medicine; PCP Family Medicine
DX: L03.114 Cellulitis of left upper limb (principal)
CPT/HCPCS: 73110; 73130; 99283; 99284

== ENCOUNTER 2019-12-24 06:59 | Emergency (ER) | payer MEDICARE, SELFPAY ==
[2019-12-24 07:07] VITALS: BP 126/55; PULSE 69; RESP 14; TEMP 35.9
--- NOTE | 2019-12-24 07:19 | ED.RECABL ---
HPI - Recheck/Abnormal Lab/Rx General Chief Complaint: Recheck/Abnormal Lab/Rx Stated Complaint: left hand injury follow up Time Seen by Provider: 12/24/19 07:03 Source: patient and old records reviewed Mode of arrival: Ambulatory Limitations: no limitations History of Present Illness HPI narrative: Patient is a 79-year-old female who returns today for left hand recheck. She was seen and evaluated yesterday for cellulitis. She initially fell 4 days ago cutting her hand after slipping on ice. She started having some swelling and redness streaking up her arm. She denies any fevers. She had an x-ray at that time which did not show any fracture. She previously had streaking up her left arm which she says is completely gone now. She is able to move her fingers much easier than she was previously. MD complaint: wound re-check Symptoms since prior visit: no new symptoms and improved Related Data Home Medications Medication Instructions Recorded Confirmed tetrahydrozoline [Visine] 1 gtt OP PRN PRN #0 12/14/11 10/29/19 Milk Of Magnesia Concentrated 30 ml PO DAILY PRN #0 02/03/18 10/29/19 polyethylene glycol 3350 [Miralax] 17 gm PO QDAY PRN #0 02/03/18 10/29/19 diphenhydramine HCl [Benadryl] 25 mg PO Q4-6H PRN 06/05/18 10/29/19 Lactobacillus acidophilus 1 cap PO DAILY 08/21/18 10/29/19 [Probiotic] multivitamin [Daily-Julee] 1 tab PO DAILY 08/21/18 10/29/19 omega 1-oau-tfx-fish oil [Fish Oil] 2,000 mg PO BID 01/17/19 10/29/19 zinc 50 mg tablet 50 mg PO DAILY 02/11/19 10/29/19 furosemide 40 mg tablet 40 mg PO BID 04/02/19 10/29/19 Previous Rx's Medication Instructions Recorded citalopram 20 mg tablet 60 mg PO DAILY #270 tab 05/25/19 diazepam 10 mg tablet 30 mg PO BEDTIME #270 tab 10/29/19 oxycodone-acetaminophen 5 mg-325 1 tab PO TID PRN #120 tab 10/29/19 mg tablet clindamycin HCl 300 mg PO QID #40 cap 12/23/19 Allergies Allergy/AdvReac Type Severity Reaction Status Date / Time acetaminophen [From TYLENOL] Allergy Mild LIMIT Verified 10/29/19 10:09 TYLENOL INTAKE, ONE KIDNEY cephalexin [CEPHALEXIN] Allergy Mild RASH Verified 10/29/19 10:09 Penicillins [PENICILLINS] Allergy Mild RASH Verified 10/29/19 10:09 ketorolac [KETOROLAC] Allergy Unknown NO TORADOL Verified 10/29/19 10:09 codeine [CODEINE] AdvReac Mild NAUSEA,VOMI Verified 10/29/19 10:09 TING,HALLUC INATIONS hydrocodone [HYDROCODONE] AdvReac Mild NAUSEA,VOMITING,DIDN'T Verified 10/29/19 10:09 WORK WELL TO CONTROL PAIN prednisone [PREDNISONE] AdvReac Mild SEVERE Verified 10/29/19 10:09 HALLUCINATIONS Review of Systems Review of Systems Narrative: GENERAL: Denies chills,fever HEENT: Denies throat pain RESPIRATORY: Denies dyspnea, cough, wheezing CARDIOVASCULAR: Denies chest pain, palpitations GASTROINTESTINAL: Denies nausea, vomiting MUSCULOSKELETAL: Denies extremity pain, injury SKIN: See HPI NEUROLOGIC: Denies weakness, dizziness, headache, numbness 8 point review of systems is negative except for those stated above and HPI Patient History Social History Smoking Status: Current every day smoker Smoking Status: Current every day smoker alcohol intake frequency: holidays/special occasions only Substance Use Type: does not use Exam Initial Vital Signs Initial Vital Signs: Vital Signs Temperature 96.7 F L 12/24/19 07:07 Pulse Rate 69 12/24/19 07:07 Respiratory Rate 14 12/24/19 07:07 Blood Pressure 126/55 L 12/24/19 07:07 GENERAL: Well-appearing, well-nourished and in no acute distress. CARDIOVASCULAR: peripheral pulses in tact, cap refill <2 sec RESPIRATORY: No respiratory distress, speaks in full sentences without difficulty EXTREMITIES: Normal range of motion, no clubbing or edema. Neurovascularly intact NEUROLOGICAL: Cranial nerves II through XII grossly intact. Normal gait and speech. SKIN: Left hand wound laceration sutures intact no gross drainage mild erythema no streaking up the arm able to move fingers easily without any difficulty Course Vital Signs Vital signs: Vital Signs - 8 hr 12/24/19 07:07 Temperature 96.7 F L Pulse Rate 69 Respiratory Rate 14 Blood Pressure 126/55 L MDM - Recheck/Abnormal Lab/Rx MDM Narrative Medical decision making narrative: At this time patient overall shows improvement. Recommend continuing on her antibiotics keeping it clean and dry. No need for any further intervention at this time Discharge Plan Departure Patient Disposition: Home Clinical Impression: Cellulitis of hand, left Discharge Date/Time: 12/24/19 07:31 Activity Restrictions/Additional Instructions: *You have been diagnosed with cellulitis left hand *What to do: Wound overall looks much improved. Continue keeping it clean and dry with soap and water. May apply antibiotic ointment 1-2 times daily *Continue to take medications as directed Finish antibiotics as previously prescribed *Follow up with your primary care provider in 2-3 days *Return to ER if you should have increasing redness inability to move finger or any new, worsening or concerning symptoms Prescriptions: No Action tetrahydrozoline [Visine] 15 ML drops 1 gtt OP PRN PRN (Reason: Dry Eyes) Qty: 0 RF: 0 Milk Of Magnesia Concentrated 2,400 MG/10 ML suspension 30 ml PO DAILY PRN (Reason: Constipation) Qty: 0 RF: 0 polyethylene glycol 3350 [Miralax] 119 GM powder 17 gm PO QDAY PRN (Reason: Constipation) Qty: 0 RF: 0 citalopram 20 mg tablet 60 mg PO DAILY Qty: 270 RF: 3 diazepam [Valium] 10 mg tablet 30 mg PO BEDTIME Qty: 270 RF: 3 oxycodone-acetaminophen 5-325 mg tablet 1 tab PO TID PRN (Reason: pain) Qty: 120 RF: 0 zinc 50 mg tablet 50 mg PO DAILY RF: 0 furosemide [Lasix] 40 mg tablet 40 mg PO BID RF: 0 diphenhydramine HCl [Benadryl] 25 mg Capsule 25 mg PO Q4-6H PRN (Reason: Allergic Symptoms) RF: 0 Probiotic 10 billion cell Capsule 1 cap PO DAILY RF: 0 multivitamin [Daily-Julee] Tablet 1 tab PO DAILY RF: 0 omega 2-yqr-fof-fish oil [Fish Oil] 1,000 mg (120 mg-180 mg) Capsule 2,000 mg PO BID RF: 0 clindamycin HCl 300 mg capsule 300 mg PO QID Qty: 40 RF: 0 Referrals: Sagar Silva MD [Primary Care Provider] -
== END 2019-12-24 07:31 | disposition home or self-care (01) ==
PROVIDERS: Emergency Provider Emergency Medicine; PCP Family Medicine
DX: L03.114 Cellulitis of left upper limb (principal)
CPT/HCPCS: 99281

== ENCOUNTER 2020-02-14 08:26 | Emergency (ER) | payer MEDICARE, SELFPAY ==
[2020-02-14 08:39] VITALS: BP 140/85; PULSE 71; RESP 20; TEMP 36.8; O2SAT 97; BMI 18.3
--- NOTE | 2020-02-14 09:26 | ED.ABDPAIN ---
HPI - Abdominal Pain General Chief Complaint: Abdominal Pain Stated Complaint: abdominal 'probably a blockage' Time Seen by Provider: 02/14/20 09:25 Source: patient and family Mode of arrival: Ambulatory Limitations: no limitations History of Present Illness HPI narrative: HPI: The patient is a 79-year-old female who presents to the emergency department with persistent abdominal pain which started on . It has progressively worsened. It has not resolved. The patient came in today because it has persisted for such a long time. The patient states that it may be mildly improved today and that she had a partial bowel movement this morning. Since she has not had a bowel movement until this morning. The patient states that on February 03 she had surgery at [facility] for a bowel obstruction with lysis of adhesions. She admits to history of kidney failure on dialysis. She receives dialysis on Saturday and Mondays. She did not receive dialysis this last Saturday because she felt so sick. She has been intensely nauseous but has had no vomiting. She has has a history of renal cell carcinoma status post nephrectomy. Her left kidney was removed. She has also had a history of multiple recurrent small-bowel obstructions. She denies any known exposure to alonso virus. She has had no fever and no new cough. Her pain and discomfort is crampy in nature and 10/10 in intensity. She denies a history of asthma COPD myocardial infarction congestive heart failure hypertension diabetes mellitus. She currently smokes cigarettes does not drink alcohol or use any drugs including marijuana. The patient denies any fever chills sweats sinus congestion sore throat. She has a mild allergy headache and nasal drainage. She denies any significant shortness of breath cough chest pain palpitations dizziness or feeling faint. She has had no diarrhea or bowel movement as noted and she has had no vomiting. She still urinates even with kidney failure and hemodialysis but denies any dysuria or any other urinary symptoms. Related Data Home Medications Medication Instructions Recorded Confirmed tetrahydrozoline [Visine] 1 gtt OP PRN PRN #0 12/14/11 02/02/20 Milk Of Magnesia Concentrated 30 ml PO DAILY PRN #0 02/03/18 02/02/20 polyethylene glycol 3350 [Miralax] 17 gm PO QDAY PRN #0 02/03/18 02/02/20 diphenhydramine HCl [Benadryl] 25 mg PO Q4-6H PRN 06/05/18 02/02/20 Lactobacillus acidophilus 1 cap PO DAILY 08/21/18 02/02/20 [Probiotic] multivitamin [Daily-Julee] 1 tab PO DAILY 08/21/18 02/02/20 omega 0-qvf-nla-fish oil [Fish Oil] 2,000 mg PO BID 01/17/19 02/02/20 zinc 50 mg tablet 50 mg PO DAILY 02/11/19 02/02/20 furosemide 40 mg tablet 40 mg PO BID 04/02/19 02/02/20 Previous Rx's Medication Instructions Recorded citalopram 20 mg tablet 60 mg PO DAILY #270 tab 05/25/19 diazepam 10 mg tablet 30 mg PO BEDTIME #270 tab 02/02/20 oxycodone-acetaminophen 5 mg-325 1 tab PO TID PRN #120 tab 02/02/20 mg tablet Allergies Allergy/AdvReac Type Severity Reaction Status Date / Time acetaminophen [From TYLENOL] Allergy Mild LIMIT Verified 02/14/20 08:39 TYLENOL INTAKE, ONE KIDNEY cephalexin [CEPHALEXIN] Allergy Mild RASH Verified 02/14/20 08:39 Penicillins [PENICILLINS] Allergy Mild RASH Verified 02/14/20 08:39 ketorolac [KETOROLAC] Allergy Unknown NO TORADOL Verified 02/14/20 08:39 codeine [CODEINE] AdvReac Mild NAUSEA,VOMI Verified 02/14/20 08:39 TING,HALLUC INATIONS hydrocodone [HYDROCODONE] AdvReac Mild NAUSEA,VOMITING,DIDN'T Verified 02/14/20 08:39 WORK WELL TO CONTROL PAIN prednisone [PREDNISONE] AdvReac Mild SEVERE Verified 02/14/20 08:39 HALLUCINATIONS Review of Systems Review of Systems Narrative: Her review of systems were all negative except for those mentioned in the history of present illness. 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 (Acute) ESRD (end stage renal disease) on dialysis (Acute) History of renal cell cancer (Acute) Hypertension (Acute) S/p nephrectomy (Acute) SBO (small bowel obstruction) (Acute) Surgical History H/O carpal tunnel repair (Acute) H/O hernia repair (Acute) S/P DENIS-BSO (Acute) S/P tonsillectomy and adenoidectomy (Acute) Social History Smoking Status: Current every day smoker Smoking Status: Current every day smoker alcohol intake frequency: holidays/special occasions only Substance Use Type: does not use Exam Narrative Exam Narrative: PHYSICAL EXAM: CONSTITUTIONAL: Awake, Alert, Oriented, Coherent, Cooperative. Does not appear to be in any acute distress. Appears sallow and very pale. HEAD: AT/NC EENT: PERRL, FROM of eyes, no discharge, No epistaxis or nasal drainage Oral mucosa is moist and pink, NECK: Supple, no obvious JVD, Trachea is midline without stridor, . SPINE: No gross deformity, no palpable tenderness of the cervical, thoracic, lumbar or sacral spine. Minimal right CVA tenderness THORAX: No deformity, retractions, chest wall tenderness. LUNGS: Breath sounds are decreased bilaterally but clear without rales or rhonchi. HEART: Regular rhythm and rate with a loud grade 2/6 systolic murmur along the left sternal border. ABDOMEN: Abdomen is distended with a midline longitudinal scar. Bowel sounds are present but hypoactive. Her abdomen is tympanitic and diffusely tender in all 4 quadrants with guarding. EXTREMITIES: No edema, cyanosis, deformity or tenderness. The patient has an arterial venous dialysis shunt in her left arm. Radial pulses are 2+. SKIN: No rash, bruising, petechiae or purpura. NEURO: Awake, alert, oriented, conversive, cranial nerves II-XII are symmetrical, moves all 4 extremities . Initial Vital Signs Initial Vital Signs: Vital Signs Temperature 98.3 F 02/14/20 08:39 Pulse Rate 71 02/14/20 08:39 Respiratory Rate 20 02/14/20 08:39 Blood Pressure 140/85 02/14/20 08:39 Pulse Oximetry 97 02/14/20 08:39 Course Course Course Narrative: 11:19 the patient's WBC is 11.6 hemoglobin is 12.1 hematocrit is 36.1, but protime 12.1 INR 1.0 PTT 30, sodium 142, potassium 3.8, chloride 96, carbon dioxide 40. Creatinine is 2.24 GFR is 21.2 Magnesium is 4.1, lipase is 605, Dr. 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 1123: Spoke with Dr. Jc the general surgeon on-call and informed him of her cecal volvulus. He will be down to see the patient. 1149: I discussed the patient with the general surgeon who recommended that to the patient go directly to the emergency department and he will see the patient in the emergency department. The patient will postoperatively need a hemodialysis. I discussed the patient with in the emergency department at [facility] who accepted the patient being transferred in told me to work on the transfers and would just call Dr. Cavazos to verify our conversation and plan. The plan is to transfer the patient to [facility]. 1210: I explained the situation to the patient and her daughter in the room. I explained to the patient that the colon and cecum has twisted on itself which is called a cecal volvulus. Where the cecum twists on itself also compromises the circulation. As a result there is no blood supply to that portion of the colon and it can . We try and minimize the delay in surgery and on twist the volvulus so as to restore the blood flow to the bowel. The risk is that that segment of bowel can at any time. They were informed that since this started on ( Saturday, Saturday, Saturday: Today), that segment of colon may already be , especially since she has had a small bowel movement and her pain was slightly improved. The complicating factor is that she requires hemodialysis and we do not have hemodialysis at [facility] postoperatively. If the surgery is performed here at [facility] would have to agree to accept the patient in being transferred postoperatively for hemodialysis. The alternative is to transfer immediately to [facility] to the emergency department have the general surgeon their evaluate take her to surgery and provide hemodialysis as necessary. The patient and her daughter understands the risks and the potential complications and pre for being transferred to [facility] where everything can be done. They understand that if the bowel is not infarcted it could infarct secondary to the delay or it may already be infarcted. They understand and understand that if it is infarcted that portion of the colon will need to be resected. The patient's sister is Siddharth Ruvalcaba who has power of bellperson. The lady in the room with the patient is not her daughter but a very close friend Heather Auguste ( ). 12:41 the patient is aware that the ambulance is on its way to transfer her to [facility]. The patient states that she has been treated multiple times at [facility] and would like to just be treated there. She understands the risks of developing a possible infarcted colon. She also understands that that segment will need to be resected if infarcted and that she could end up with an ileostomy, colostomy, or a mucus cutaneous fistula. Orders Ordered: Discontinued Medications Diphenhydramine HCl (Benadryl) 50 mg IV NOW ONE Stop: 02/14/20 12:05 Last Admin: 02/14/20 12:23 Dose: 50 mg Documented by: SONIA Sodium Chloride (Normal Saline 0.9%) 1,000 mls @ 1,000 mls/hr IV BOLUS ONE Stop: 02/14/20 10:41 Last Infusion: 02/14/20 11:36 Dose: 0 mls/hr Documented by: Admin: 02/14/20 09:55 Dose: 1,000 mls/hr Documented by: SONIA Sodium Chloride (Normal Saline 0.9%) 1,000 mls @ 125 mls/hr IV CONT MACRINA Last Infusion: 02/14/20 12:59 Dose: 0 mls/hr Documented by: Admin: 02/14/20 11:42 Dose: 125 mls/hr Documented by: SONIA Cefepime HCl 2 gm/ Sodium (Chloride) 100 mls @ 200 mls/hr IV NOW ONE Stop: 02/14/20 12:05 Last Infusion: 02/14/20 13:00 Dose: 0 mls/hr Documented by: Admin: 02/14/20 12:21 Dose: 200 mls/hr Documented by: SONIA Morphine Sulfate (Morphine) 4 mg IV NOW ONE Stop: 02/14/20 09:43 Last Admin: 02/14/20 09:56 Dose: 4 mg Documented by: SONIA Ondansetron HCl (Zofran) 4 mg IV NOW ONE Stop: 02/14/20 09:43 Last Admin: 02/14/20 09:56 Dose: 4 mg Documented by: SONIA Vital Signs Vital signs: Vital Signs - 8 hr 02/14/20 12:00 02/14/20 12:34 02/14/20 13:01 Pulse Rate 61 63 63 Respiratory Rate 20 20 19 Blood Pressure 122/59 L Blood Pressure [Left Arm] 105/55 L 122/59 L Pulse Oximetry 98 98 99 MDM - Abdominal Pain Lab Data Result diagrams: 02/14/20 09:38 02/14/20 09:38 Labs: Lab Results 02/14/20 02/14/20 02/14/20 Range/Units 09:38 09:38 09:38 WBC 11.6 H (4.5-11.0) X10^3/uL RBC 3.60 L (4.0-5.2) X10^6/uL Hgb 12.1 (12.0-16.0) g/dL Hct 36.1 (36-46) % MCV 100.3 H (80-100) fL MCH 33.5 (26-34) PG MCHC 33.4 (30-36) % RDW 12.6 (11.6-14.8) % Plt Count 291 (150-400) X10^3/uL Neut % (Auto) 78.8 H (50-75) % Lymph % (Auto) 12.0 L (25-40) % Izard % (Auto) 7.7 (3-14) % Eos % (Auto) 0.3 L (2-4) % Baso % (Auto) 1.2 (0-2) % Neut # (Auto) 9100 H (5885-3208) /uL Lymph # (Auto) 1400 (4796-9125) /uL Izard # (Auto) 900 (0-900) /uL Eos # (Auto) 0 (0-450) /uL Baso # (Auto) 100 (0-100) /uL PT 12.1 (10.1-12.7) SECONDS INR 1.0 (0.9-1.3) APTT 30 D (26.4-36.2) SECONDS Sodium 142 (137-145) mmol/L Potassium 3.8 (3.4-5.1) mmol/L Chloride 96 L (98-107) mmol/L Carbon Dioxide 40 H* (22-32) mmol/L BUN 35 H (7-17) mg/dL Creatinine 2.24 H (0.52-1.04) mg/dL Estimated GFR 21.2 L (>60) mL/min BUN/Creatinine Ratio 15.6 (6-22) Glucose 103 (80-110) mg/dL Lactate (0.7-2.1) mmol/L Calcium 9.4 (8.4-10.2) mg/dL Magnesium (1.6-2.3) mg/dL Total Bilirubin 0.4 (0.2-1.3) mg/dL AST 34 (14-36) IU/L ALT 24 (<35) IU/L Alkaline Phosphatase 100 (38-126) U/L Total Protein 7.3 (6.3-8.2) g/dL Albumin 4.3 (3.5-5.0) g/dL Globulin 3.0 (1.7-4.1) g/dL Albumin/Globulin Ratio 1.4 (1.0-2.8) Lipase 605 H (23-300) U/L 02/14/20 02/14/20 Range/Units 09:38 09:49 WBC (4.5-11.0) X10^3/uL RBC (4.0-5.2) X10^6/uL Hgb (12.0-16.0) g/dL Hct (36-46) % MCV (80-100) fL MCH (26-34) PG MCHC (30-36) % RDW (11.6-14.8) % Plt Count (150-400) X10^3/uL Neut % (Auto) (50-75) % Lymph % (Auto) (25-40) % Izard % (Auto) (3-14) % Eos % (Auto) (2-4) % Baso % (Auto) (0-2) % Neut # (Auto) (5430-6731) /uL Lymph # (Auto) (8762-1317) /uL Izard # (Auto) (0-900) /uL Eos # (Auto) (0-450) /uL Baso # (Auto) (0-100) /uL PT (10.1-12.7) SECONDS INR (0.9-1.3) APTT (26.4-36.2) SECONDS Sodium (137-145) mmol/L Potassium (3.4-5.1) mmol/L Chloride (98-107) mmol/L Carbon Dioxide (22-32) mmol/L BUN (7-17) mg/dL Creatinine (0.52-1.04) mg/dL Estimated GFR (>60) mL/min BUN/Creatinine Ratio (6-22) Glucose (80-110) mg/dL Lactate 0.7 (0.7-2.1) mmol/L Calcium (8.4-10.2) mg/dL Magnesium 4.1 H (1.6-2.3) mg/dL Total Bilirubin (0.2-1.3) mg/dL AST (14-36) IU/L ALT (<35) IU/L Alkaline Phosphatase (38-126) U/L Total Protein (6.3-8.2) g/dL Albumin (3.5-5.0) g/dL Globulin (1.7-4.1) g/dL Albumin/Globulin Ratio (1.0-2.8) Lipase (23-300) U/L ECG Data Attestation: I personally reviewed and interpreted this ECG as follows: Interpretation: The patient's EKG obtained on February 13 at 08:5 3:24 a.m. reveals a ventricular rate of 69 an underlying rhythm of sinus rhythm. Her QT interval is 479 milliseconds which is prolonged the rest of her intervals are normal. She has a normal axis. She has a QS wave in V1 with inverted T-waves in leads V1 flat T-waves in lead III. She has some nonspecific ST segment depressions in the inferior leads II, III, AVF V4 and V5. There are no other acute diagnostic ST or T-wave changes to suggest ischemia or injury. Discharge Plan Departure Patient Disposition: [facility] Clinical Impression: Acute renal failure on dialysis, Cecal volvulus Abdominal pain Qualifiers: Abdominal location: generalized Qualified Code(s): R10.84 - Generalized abdominal pain Acute pancreatitis Qualifiers: Pancreatitis type: unspecified pancreatitis type Acute pancreatitis complication: unspecified Qualified Code(s): K85.90 - Acute pancreatitis without necrosis or infection, unspecified Discharge Date/Time: 02/14/20 13:05 Prescriptions: No Action tetrahydrozoline [Visine] 15 ML drops 1 gtt OP PRN PRN (Reason: Dry Eyes) Qty: 0 RF: 0 Milk Of Magnesia Concentrated 2,400 MG/10 ML suspension 30 ml PO DAILY PRN (Reason: Constipation) Qty: 0 RF: 0 polyethylene glycol 3350 [Miralax] 119 GM powder 17 gm PO QDAY PRN (Reason: Constipation) Qty: 0 RF: 0 citalopram 20 mg tablet 60 mg PO DAILY Qty: 270 RF: 3 zinc 50 mg tablet 50 mg PO DAILY RF: 0 furosemide [Lasix] 40 mg tablet 40 mg PO BID RF: 0 diazepam [Valium] 10 mg tablet 30 mg PO BEDTIME Qty: 270 RF: 3 oxycodone-acetaminophen 5-325 mg tablet 1 tab PO TID PRN (Reason: pain) Qty: 120 RF: 0 diphenhydramine HCl [Benadryl] 25 mg Capsule 25 mg PO Q4-6H PRN (Reason: Allergic Symptoms) RF: 0 Probiotic 10 billion cell Capsule 1 cap PO DAILY RF: 0 multivitamin [Daily-Julee] Tablet 1 tab PO DAILY RF: 0 omega 9-kla-mwt-fish oil [Fish Oil] 1,000 mg (120 mg-180 mg) Capsule 2,000 mg PO BID RF: 0 Referrals: Sagar Silva MD [Primary Care Provider] -
--- NOTE | 2020-02-14 09:42 | DI.CT.S_ITS ---
PROCEDURE: CT ABDOMEN PELVIS W CON INDICATIONS: Abdominal pain, nausea, tender, distended tympanitic r/o SBO TECHNIQUE: After the administration of intravenous contrast, 5 mm thick sections acquired from the diaphragm to the symphysis. 5 mm coronal and sagittal reformats were acquired. For radiation dose reduction, the following was used: automated exposure control, adjustment of mA and/or kV according to patient size. COMPARISON: [facility], CT, CT ABDOMEN PELVIS WO CON, 05/26/2019, 18:46. [facility], CT, CT ABDOMEN PELVIS W CON, 01/17/2019, 7:53. FINDINGS: Image quality: Excellent. ABDOMEN: Lung bases: Lung bases are clear. Heart size is normal. Solid organs: Liver is normal in size and enhancement. Gallbladder demonstrates a gallstone within its lumen, as on series 2 image 32. Biliary system is non dilated. Pancreas enhances normally. Spleen is normal in size and enhancement. No adrenal nodules. The left kidney has been removed. The right kidney demonstrates several simple appearing cysts. No hydronephrosis is seen. Peritoneum and bowel: There is a loop of abnormally dilated colon seen within upper abdomen that measures up to 10 cm. This is believed to be related to a dilated cecum. A site of obstruction can be seen on series 4 image 22. There is a swirl of vessels seen, as on series 2 image 44 through 49 and on series 4 images 18-23. No dilated loops of small bowel can be seen. A small amount of ascites is seen. No free air. Nodes and vessels: No retroperitoneal or mesenteric adenopathy by size criteria. Aorta and inferior vena cava are normal in size. Atherosclerotic calcification is noted. Miscellaneous: No ventral hernias. PELVIS: Genitourinary: Bladder wall thickness is normal. This patient is status post hysterectomy. No adnexal masses are seen. Miscellaneous: No inguinal hernias or adenopathy. Dilated pelvic veins can be seen on the left. Bones: No suspicious bony lesions. No vertebral body compression fractures. Levoconvex lumbar scoliosis is seen. 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 Dilated pelvic veins are seen. Surgical consultation is recommended. Incidental note is made of: Gallstone Left nephrectomy. Moderate levoconvex scoliosis. Hysterectomy Note: Case discussed by telephone with Dr. Agarwal at 10:20 AM [place] time on February 14, 2020. Dictated by: Gerardo Zayas M.D. on 02/14/2020 at 10:10 Approved by: Gerardo Zayas M.D. on 02/14/2020 at 10:23
[2020-02-14 09:48] LABS: Add Manual Diff / Slide Review NO; Basophils Absolute Auto 100 /uL (0-100); Basophils Percent Auto 1.2 % (0-2); Eosinophils Absolute Auto 0 /uL (0-450); Eosinophils Percent Auto 0.3 % (2-4); Hematocrit 36.1 % (36-46); Hemoglobin 12.1 g/dL (12.0-16.0); Lymphocytes Absolute Auto 1400 /uL (1100-4500); Mean Corpuscular HGB Conc 33.4 % (30-36); Mean Corpuscular Hemoglobin 33.5 PG (26-34); Mean Corpuscular Volume 100.3 fL (80-100); Monocytes Absolute Auto 900 /uL (0-900); Monocytes Percent Auto 7.7 % (3-14); Neutrophils Absolute Auto 9100 /uL (1500-7000); Neutrophils Percent Auto 78.8 % (50-75); Platelet Count 291 X10^3/uL (150-400); Red Cell Distribution Width 12.6 % (11.6-14.8); White Blood Cell Count 11.6 X10^3/uL (4.5-11.0)
[2020-02-14 09:54] LABS: Prothrombin Time 12.1 SECONDS (10.1-12.7)
[2020-02-14] MEDS: SODIUM CHLORIDE 0.9% 1,000 ML 1000 ML IV (09:55)
[2020-02-14] MEDS: MORPHINE 4 MG/ML INJ IV (09:56)
[2020-02-14] MEDS: ONDANSETRON 4 MG/2 ML INJ IV (09:56)
[2020-02-14 09:57] LABS: PTT Partial Thromboplastin Tim 30 SECONDS (26.4-36.2)
[2020-02-14 09:59] LABS: Magnesium 4.1 mg/dL (1.6-2.3)
[2020-02-14 10:00] LABS: Alanine Aminotransferase 24 IU/L (<35); Albumin 4.3 g/dL (3.5-5.0); Albumin Globulin Ratio 1.4 (1.0-2.8); Alkaline Phosphatase 100 U/L (38-126); Aspartate Aminotransferase 34 IU/L (14-36); BUN Creatinine Ratio 15.6 (6-22); Bilirubin Total 0.4 mg/dL (0.2-1.3); Blood Urea Nitrogen 35 mg/dL (7-17); Calcium 9.4 mg/dL (8.4-10.2); Chloride 96 mmol/L (98-107); Estimated Glomerular Filt Rate 21.2 mL/min (>60); Glucose 103 mg/dL (80-110); HEMOLYSIS < 15 (0-50); Lipase 605 U/L (23-300); Potassium 3.8 mmol/L (3.4-5.1); Sodium 142 mmol/L (137-145); Total Protein 7.3 g/dL (6.3-8.2)
[2020-02-14 10:07] LABS: Carbon Dioxide 40 mmol/L (22-32)
[2020-02-14 11:04] VITALS: BP 118/56; PULSE 63; RESP 16; O2SAT 100
[2020-02-14] MEDS: SODIUM CHLORIDE 0.9% 1,000 ML 125 ML IV (11:42)
[2020-02-14 12:00] VITALS: BP 105/55; PULSE 61; RESP 20; O2SAT 98
[2020-02-14] MEDS: CEFEPIME 2 GM in SODIUM CHLORIDE 0.9% 100 ML 200 ML IV (12:21)
[2020-02-14] MEDS: diphenhydrAMINE 50 MG/ML VIAL IV (12:23)
[2020-02-14 12:26] LABS: Lactate (Lactic Acid) 0.7 mmol/L (0.7-2.1)
[2020-02-14 12:34] VITALS: BP 122/59; PULSE 63; RESP 20; O2SAT 98
[2020-02-14 13:01] VITALS: BP 122/59; PULSE 63; RESP 19; O2SAT 99
== END 2020-02-14 13:05 | disposition short-term general hospital (02) ==
PROVIDERS: Emergency Provider Emergency Medicine; PCP Family Medicine
DX: N17.9 Acute kidney failure, unspecified (principal); Z99.2 Dependence on renal dialysis; K56.2 Volvulus; R10.84 Generalized abdominal pain; K85.90 Acute pancreatitis without necrosis or infection, unspecified
CPT/HCPCS: 36415; 74177; 80053; 83605; 83690; 83735; 85025; 85610; 85730; 93005; 96361; 96365; 96375; 99285; J0692; J1200; J2270; J2405; Q9967

== ENCOUNTER → 2020-05-04 06:50 | Outpatient (CLI) | payer MEDICARE, SELFPAY ==
[2020-05-04 07:48] LABS: Add Manual Diff / Slide Review NO; Basophils Absolute Auto 100 /uL (0-100); Basophils Percent Auto 0.7 % (0-2); Eosinophils Absolute Auto 200 /uL (0-450); Eosinophils Percent Auto 2.5 % (2-4); Hematocrit 35.2 % (36-46); Hemoglobin 12.1 g/dL (12.0-16.0); Lymphocytes Absolute Auto 1400 /uL (1100-4500); Lymphocytes Percent Auto 17.3 % (25-40); Mean Corpuscular HGB Conc 34.3 % (30-36); Mean Corpuscular Hemoglobin 34.1 PG (26-34); Mean Corpuscular Volume 99.5 fL (80-100); Monocytes Absolute Auto 600 /uL (0-900); Monocytes Percent Auto 7.1 % (3-14); Neutrophils Absolute Auto 5800 /uL (1500-7000); Neutrophils Percent Auto 72.4 % (50-75); Platelet Count 286 X10^3/uL (150-400); Red Blood Cell Count 3.54 X10^6/uL (4.0-5.2); Red Cell Distribution Width 12.8 % (11.6-14.8)
[2020-05-04 08:09] LABS: Alanine Aminotransferase 67 IU/L (<35); Albumin 4.4 g/dL (3.5-5.0); Albumin Globulin Ratio 1.6 (1.0-2.8); Alkaline Phosphatase 122 U/L (38-126); Aspartate Aminotransferase 65 IU/L (14-36); BUN Creatinine Ratio 17.8 (6-22); Bilirubin Total 0.3 mg/dL (0.2-1.3); Blood Urea Nitrogen 45 mg/dL (7-17); Calcium 9.6 mg/dL (8.4-10.2); Carbon Dioxide 34 mmol/L (22-32); Chloride 98 mmol/L (98-107); Cholesterol 206 mg/dL (140-199); Estimated Glomerular Filt Rate 18.4 mL/min (>60); Globulin 2.7 g/dL (1.7-4.1); Glucose 92 mg/dL (80-110); HDL Cholesterol 41 mg/dL (40-60); HEMOLYSIS < 15 (0-50); LDL Cholesterol Calculated 120 mg/dL (<100); Potassium 4.3 mmol/L (3.4-5.1); Sodium 140 mmol/L (137-145); Total Protein 7.1 g/dL (6.3-8.2); Triglycerides 226 mg/dL (35-150)
[2020-05-04 08:34] LABS: Thyroid Stimulating Hormone 0.94 uIU/mL (0.47-4.68)
== END ==
PROVIDERS: PCP Family Medicine; Referring Provider Family Medicine; Visit Provider Family Medicine
DX: I10 Essential (primary) hypertension (principal); K56.609 Unspecified intestinal obstruction, unspecified as to partial versus complete obstruction; N17.9 Acute kidney failure, unspecified; R10.84 Generalized abdominal pain; Z99.2 Dependence on renal dialysis
CPT/HCPCS: 36415; 80053; 80061; 84443; 85025

== ENCOUNTER → 2020-08-04 10:29 | Outpatient (CLI) | payer MEDICARE, SELFPAY ==
[2020-08-04 11:47] LABS: Add Manual Diff / Slide Review NO; Basophils Absolute Auto 100 /uL (0-100); Basophils Percent Auto 0.7 % (0-2); Eosinophils Absolute Auto 200 /uL (0-450); Eosinophils Percent Auto 2.3 % (2-4); Hematocrit 34.4 % (36-46); Hemoglobin 11.7 g/dL (12.0-16.0); Lymphocytes Absolute Auto 1800 /uL (1100-4500); Mean Corpuscular HGB Conc 34.1 % (30-36); Mean Corpuscular Hemoglobin 33.7 PG (26-34); Monocytes Absolute Auto 700 /uL (0-900); Monocytes Percent Auto 7.5 % (3-14); Neutrophils Absolute Auto 6400 /uL (1500-7000); Neutrophils Percent Auto 69.5 % (50-75); Platelet Count 321 X10^3/uL (150-400); Red Blood Cell Count 3.48 X10^6/uL (4.0-5.2); Red Cell Distribution Width 12.9 % (11.6-14.8); White Blood Cell Count 9.2 X10^3/uL (4.5-11.0)
[2020-08-04 12:12] LABS: Alanine Aminotransferase 48 IU/L (<35); Albumin 4.1 g/dL (3.5-5.0); Albumin Globulin Ratio 1.5 (1.0-2.8); Alkaline Phosphatase 126 U/L (38-126); Amylase 201 U/L (30-110); Aspartate Aminotransferase 51 IU/L (14-36); BUN Creatinine Ratio 21.8 (6-22); Bilirubin Total 0.3 mg/dL (0.2-1.3); Blood Urea Nitrogen 67 mg/dL (7-17); Calcium 8.9 mg/dL (8.4-10.2); Chloride 94 mmol/L (98-107); Estimated Glomerular Filt Rate 14.7 mL/min (>60); Globulin 2.7 g/dL (1.7-4.1); Glucose 78 mg/dL (80-110); HEMOLYSIS < 15 (0-50); Lipase 566 U/L (23-300); Potassium 4.6 mmol/L (3.4-5.1); Sodium 141 mmol/L (137-145); Total Protein 6.8 g/dL (6.3-8.2)
[2020-08-04 12:25] LABS: Carbon Dioxide 39 mmol/L (22-32)
== END ==
PROVIDERS: PCP Family Medicine; Referring Provider Family Medicine; Visit Provider Family Medicine
DX: R94.5 Abnormal results of liver function studies (principal)
CPT/HCPCS: 36415; 80053; 82150; 83690; 85025

== ENCOUNTER → 2021-02-13 09:09 | Outpatient (CLI) | payer MEDICARE, SELFPAY ==
[2021-02-13 11:07] LABS: COVID19 -Nasal RAPID Negative (Negative)
== END ==
PROVIDERS: PCP Family Medicine; Visit Provider Physician Assistant
DX: Z20.822 Contact with and (suspected) exposure to COVID-19 (principal)
CPT/HCPCS: 87635; C9803

== ENCOUNTER → 2021-03-15 09:13 | Outpatient (CLI) | payer MEDICARE, SELFPAY ==
[2021-03-15 11:38] LABS: COVID19 -Nasal RAPID Negative (Negative)
== END ==
PROVIDERS: PCP Family Medicine; Visit Provider Student in an Organized Health Care Education/Training Program
DX: Z01.812 Encounter for preprocedural laboratory examination (principal); Z20.822 Contact with and (suspected) exposure to COVID-19
CPT/HCPCS: 87635; C9803

== ENCOUNTER → 2021-06-15 08:21 | Outpatient (CLI) | payer MEDICARE, SELFPAY ==
[2021-06-15 10:15] LABS: Add Manual Diff / Slide Review NO; Basophils Absolute Auto 100 /uL (0-100); Basophils Percent Auto 0.8 % (0-2); Eosinophils Absolute Auto 200 /uL (0-450); Eosinophils Percent Auto 2.9 % (2-4); Hematocrit 35.2 % (36-46); Hemoglobin 11.4 g/dL (12.0-16.0); Lymphocytes Absolute Auto 1800 /uL (1100-4500); Lymphocytes Percent Auto 21.8 % (25-40); Mean Corpuscular HGB Conc 32.5 % (30-36); Mean Corpuscular Hemoglobin 32.5 PG (26-34); Mean Corpuscular Volume 100.2 fL (80-100); Monocytes Absolute Auto 600 /uL (0-900); Monocytes Percent Auto 7.9 % (3-14); Neutrophils Absolute Auto 5400 /uL (1500-7000); Neutrophils Percent Auto 66.6 % (50-75); Platelet Count 356 X10^3/uL (150-400); Red Blood Cell Count 3.51 X10^6/uL (4.0-5.2); Red Cell Distribution Width 12.8 % (11.6-14.8); White Blood Cell Count 8.1 X10^3/uL (4.5-11.0)
[2021-06-15 10:45] LABS: Alanine Aminotransferase 46 IU/L (<35); Albumin 4.1 g/dL (3.5-5.0); Albumin Globulin Ratio 1.5 (1.0-2.8); Alkaline Phosphatase 142 U/L (38-126); Aspartate Aminotransferase 46 IU/L (14-36); BUN Creatinine Ratio 15.1 (6-22); Bilirubin Total 0.2 mg/dL (0.2-1.3); Blood Urea Nitrogen 62 mg/dL (7-17); Calcium 8.9 mg/dL (8.4-10.2); Carbon Dioxide 36 mmol/L (22-32); Chloride 96 mmol/L (98-107); Cholesterol 213 mg/dL (140-199); Estimated Glomerular Filt Rate 10.5 mL/min (>60); Globulin 2.7 g/dL (1.7-4.1); Glucose 86 mg/dL (80-110); HDL Cholesterol 64 mg/dL (40-60); HEMOLYSIS < 15 (0-50); LDL Cholesterol Calculated 97 mg/dL (<100); Sodium 138 mmol/L (137-145); Total Protein 6.8 g/dL (6.3-8.2); Triglycerides 260 mg/dL (35-150)
== END ==
PROVIDERS: PCP Family Medicine; Referring Provider Family Medicine; Visit Provider Family Medicine
DX: E78.5 Hyperlipidemia, unspecified (principal); N19 Unspecified kidney failure; R94.5 Abnormal results of liver function studies
CPT/HCPCS: 36415; 80053; 80061; 85025

== ENCOUNTER → 2022-05-17 07:21 | Outpatient (CLI) | payer MEDICARE, SELFPAY ==
[2022-05-17 08:25] LABS: Cholesterol 197 mg/dL (140-199); HDL Cholesterol 50 mg/dL (40-60); LDL Cholesterol Calculated 109 mg/dL (<100); Triglycerides 191 mg/dL (35-150)
== END ==
PROVIDERS: PCP Family Medicine; Referring Provider Family Medicine; Visit Provider Family Medicine
DX: N18.5 Chronic kidney disease, stage 5 (principal); R94.5 Abnormal results of liver function studies
CPT/HCPCS: 36415; 80061

== ENCOUNTER 2022-06-05 00:19 | Emergency (ER) | payer MEDICARE, SELFPAY ==
[2022-06-05 00:47] VITALS: BP 147/63; PULSE 81; RESP 18; TEMP 36.8; O2SAT 95; BMI 19.5
--- NOTE | 2022-06-05 00:51 | DI.RAD.S_ITS ---
PROCEDURE: XR KNEE RT 3V INDICATIONS: Fall right knee pain TECHNIQUE: 3 views of the knee were acquired. COMPARISON: None. FINDINGS: Bones: No fractures or dislocations. There is osteopenia. Mild to moderate joint space narrowing demonstrated in the patellofemoral compartment with minimal osteophytosis. No suspicious bony lesions. Soft tissues: There is a moderate joint effusion. No suspicious soft tissue calcifications. IMPRESSION: 1. No fracture or dislocation. 2. Moderate joint effusion. Dictated by: Gustavo Villasenor M.D. on 06/05/2022 at 1:55 Approved by: Gustavo Villasenor M.D. on 06/05/2022 at 1:56
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
--- NOTE | 2022-06-05 03:59 | DI.RAD.S_ITS ---
PROCEDURE: XR FOOT RT MIN 3V INDICATIONS: right foot pain, s/p fall TECHNIQUE: 3 views of the foot were acquired. COMPARISON: None. FINDINGS: Bones: Bones demonstrate osteoporosis. Slight lucency at the lateral base of the 4th middle phalanx on the oblique view may be artifactual or related to a fracture. Correlation with point tenderness is recommended. No other fracture seen. Soft tissues: There is soft tissue swelling of the midfoot. No tibiotalar joint effusion. Achilles tendon appears normal. IMPRESSION: Slight lucency at the lateral base of the 4th middle phalanx on the oblique view is probably artifactual, please correlate with point tenderness. No other fracture suspected. Comment: Final report is concordant with preliminary interpretation by [facility] Dictated by: Fuentes Garcia M.D. on 06/05/2022 at 7:23 Approved by: Fuentes Garcia M.D. on 06/05/2022 at 7:25
[2022-06-05] MEDS: OXYCODONE/ACETAMINOPHEN 5/325 TABLET 2 TAB PO (04:06)
[2022-06-05 04:47] VITALS: BP 115/51; PULSE 72; RESP 18; O2SAT 92
== END 2022-06-05 05:03 | disposition home or self-care (01) ==
PROVIDERS: Emergency Provider Emergency Medicine; PCP Family Medicine
DX: M25.461 Effusion, right knee (principal); M25.561 Pain in right knee; W19.XXXA Unspecified fall, initial encounter
CPT/HCPCS: 73562; 73630; 99283; 99284

== ENCOUNTER → 2022-07-26 09:25 | Outpatient (CLI) | payer MEDICARE, SELFPAY ==
--- NOTE | 2022-07-26 09:27 | DI.US.S_ITS ---
PROCEDURE: US PERIPH VENOUS LOW EXTREM RT INDICATIONS: SWELLING AND PAIN TECHNIQUE: Real-time imaging, as well as color and pulse Doppler interrogation, were performed of the lower extremity deep veins from the inguinal ligament to the popliteal fossa. COMPARISON: None. FINDINGS: The common femoral, femoral and popliteal veins are normally compressible, and free of intraluminal thrombus. Color and pulse Doppler demonstrate normal phasic intraluminal flow. There is normal augmentation response to distal compression maneuver. Moderate amount of soft tissue edema is seen involving lower leg extending from popliteal fossa to dorsal aspect of right foot. IMPRESSION: No evidence of DVT in visualized right lower extremity veins. Lower extremity soft tissue edema as above. Dictated by: Sal Basurto M.D. on 07/26/2022 at 10:38 Approved by: Sal Basurto M.D. on 07/26/2022 at 10:39
== END ==
PROVIDERS: PCP Family Medicine; Referring Provider Family Medicine; Visit Provider Family Medicine
DX: M79.89 Other specified soft tissue disorders (principal); M79.604 Pain in right leg
CPT/HCPCS: 93971

== ENCOUNTER → 2022-07-30 08:40 | Outpatient (CLI) | payer MEDICARE, SELFPAY ==
--- NOTE | 2022-07-30 08:41 | DI.RAD.S_ITS ---
PROCEDURE: XR FOOT RT MIN 3V INDICATIONS: Lower extremity pain TECHNIQUE: 3 views of the foot were acquired. COMPARISON: [facility], CR, XR FOOT RT MIN 3V, 06/05/2022, 4:04. FINDINGS: Bones: Redemonstrated possible/equivocal fracture of the lateral base of the 4th digit middle phalanx. Otherwise No fractures or dislocations. No suspicious bony lesions. Degenerative changes at the 1st MTP joint and scattered IP joints as before. Soft tissues: Possible tibiotalar joint effusion. IMPRESSION: 1. Redemonstrated possible/equivocal fracture of the 4th digit middle phalanx. Correlation with point tenderness may be helpful. 2. Otherwise no acute/subacute fracture visualized. 3. If symptoms persist, follow-up radiographs and/or CT or MRI may be helpful for further evaluation. Dictated by: Clifford Bautista M.D. on 07/30/2022 at 21:53 Approved by: Clifford Bautista M.D. on 07/30/2022 at 21:58
--- NOTE | 2022-07-30 08:41 | DI.RAD.S_ITS ---
PROCEDURE: XR ANKLE RT MIN 3V INDICATIONS: Lower extremity pain TECHNIQUE: 3 views of the ankle were acquired. COMPARISON: [facility], CR, XR FOOT 3+ VIEWS RIGHT, 06/26/2018, 9:50. [facility], CR, XR FOOT RT MIN 3V, 06/05/2022, 4:04. [facility], CR, XR ANKLE 3 VIEWS WEIGHT BEARING LEFT, 11/28/2017, 8:32. [facility], CR, XR ANKLE 1 OR 2 VIEWS WEIGHT BEARING LEFT, 02/20/2018, 15:38. [facility], CR, ANKLE 3 VIEWS LEFT, 01/17/2016, 10:06. [facility], CR, ANKLE 3 VIEWS LEFT, 07/13/2015, 9:46. FINDINGS: Bones: No fractures or dislocations. Ankle mortise is normally aligned. No suspicious bony lesions. Soft tissues: Possible tibiotalar joint effusion. Achilles tendon appears normal. IMPRESSION: 1. No acute fracture visualized. If symptoms persist, follow-up radiographs and/or CT for MRI may be helpful for further evaluation. 2. Possible tibiotalar joint effusion. Dictated by: Clifford Bautista M.D. on 07/30/2022 at 21:49 Approved by: Clifford Bautista M.D. on 07/30/2022 at 21:53
--- NOTE | 2022-07-30 08:41 | DI.RAD.S_ITS ---
PROCEDURE: XR KNEE RT 3V INDICATIONS: Lower extremity pain TECHNIQUE: 3 views of the knee were acquired. COMPARISON: [facility], CR, XR BONE SURVEY, 06/11/2018, 8:29. [facility], CR, XR KNEE RT 3V, 06/05/2022, 2:13. FINDINGS: Bones: Linear lucencies with adjacent sclerosis at the proximal tibial metaphysis. Mild medial compartment and patellofemoral compartment narrowing. Soft tissues: No joint effusion. No suspicious soft tissue calcifications. IMPRESSION: Linear lucencies with adjacent sclerosis at the proximal tibial metaphysis, indeterminate for acute or subacute fracture, artifact, or underlying osseous lesion. Correlation with point tenderness may be helpful. If symptoms persist, follow-up radiographs and/or CT or MRI may be helpful for further evaluation. Dictated by: Clifford Bautista M.D. on 07/30/2022 at 21:59 Approved by: Clifford Bautista M.D. on 07/30/2022 at 22:04
--- NOTE | 2022-07-30 08:41 | DI.RAD.S_ITS ---
PROCEDURE: XR TIBIA FUBULA RT 2V INDICATIONS: Lower extremity pain TECHNIQUE: 2 views of the tibia and fibula were acquired. COMPARISON: [facility], CR, XR KNEE RT 3V, 06/05/2022, 2:13. [facility], CR, XR KNEE RT 3V, 07/30/2022, 8:47. FINDINGS: Bones: Linear lucencies with adjacent sclerosis at the proximal tibial metaphysis as described on the report for knee radiograph same day. Adjacent periosteal reaction likely present. No fracture of the mid and lower tibia fibula visualized. Soft tissues: No suspicious soft tissue calcifications or masses. IMPRESSION: 1. Linear lucencies with adjacent sclerosis at the proximal tibial metaphysis as described on the report for knee radiograph same day. Findings raise the possibility of a subacute medial tibial plateau fracture, but other etiologies are not excluded including artifact, underlying osseous lesion, infection, others. CT or MRI may be helpful for further evaluation. 2. No fracture of the mid and lower tibia or fibula visualized. Dictated by: Clifford Bautista M.D. on 07/30/2022 at 22:04 Approved by: Clifford Bautista M.D. on 07/30/2022 at 22:10
== END ==
PROVIDERS: PCP Family Medicine; Referring Provider Nurse Practitioner Family; Visit Provider Nurse Practitioner Family
DX: S89.90XA Unspecified injury of unspecified lower leg, initial encounter (principal)
CPT/HCPCS: 73562; 73590; 73610; 73630

== ENCOUNTER → 2022-08-30 10:26 | Outpatient (CLI) | payer MEDICARE, SELFPAY ==
--- NOTE | 2022-08-30 | DI.RAD.S_ITS ---
PROCEDURE: XR DEXA AXIAL SKELETON INDICATIONS: OSTEOPOROSIS COMPARISON: [facility], CR, DEXA AXIAL SKELETON, 12/20/2009, 9:42. FINDINGS: This blank DEXA report has been sent in error by the PACS system. The correct and complete report will be forthcoming in 1-2 days. Thank you for your patience and understanding. Dictated by: Ismael Butcher M.D. on 09/05/2022 at 15:06 Approved by: Ismael Butcher M.D. on 09/05/2022 at 15:07
== END ==
PROVIDERS: PCP Family Medicine; Referring Provider Orthopaedic Surgery Foot and Ankle Surgery; Visit Provider Orthopaedic Surgery Foot and Ankle Surgery
DX: M81.0 Age-related osteoporosis without current pathological fracture (principal); Z78.0 Asymptomatic menopausal state; Z13.820 Encounter for screening for osteoporosis; N18.6 End stage renal disease; S82.131D Displaced fracture of medial condyle of right tibia, subsequent encounter for closed fracture with routine healing; Z79.890 Hormone replacement therapy; Z90.710 Acquired absence of both cervix and uterus
CPT/HCPCS: 77080

== ENCOUNTER → 2023-06-07 06:59 | Outpatient (CLI) | payer MEDICARE, SELFPAY ==
[2023-06-07 09:37] LABS: Alanine Aminotransferase 42 IU/L (<35); Albumin 4.3 g/dL (3.5-5.0); Albumin Globulin Ratio 1.5 (1.0-2.8); Alkaline Phosphatase 129 U/L (38-126); Aspartate Aminotransferase 43 IU/L (14-36); BUN Creatinine Ratio 12.8 (6-22); Bilirubin Total 0.2 mg/dL (0.2-1.3); Blood Urea Nitrogen 51 mg/dL (7-17); Calcium 10.6 mg/dL (8.4-10.2); Carbon Dioxide 38 mmol/L (22-32); Chloride 95 mmol/L (98-107); Cholesterol 187 mg/dL (140-199); Estimated Glomerular Filt Rate 11 mL/min (>60); Globulin 2.9 g/dL (1.7-4.1); Glucose 86 mg/dL (80-110); HDL Cholesterol 55 mg/dL (40-60); HEMOLYSIS < 15 (0-50); LDL Cholesterol Calculated 92 mg/dL (<100); Potassium 5.3 mmol/L (3.4-5.1); Sodium 137 mmol/L (137-145); Total Protein 7.2 g/dL (6.3-8.2); Triglycerides 199 mg/dL (35-150)
[2023-06-07 09:38] LABS: Add Manual Diff / Slide Review NO; Basophils Absolute Auto 100 /uL (0-100); Basophils Percent Auto 0.8 % (0-2); Eosinophils Absolute Auto 200 /uL (0-450); Hemoglobin 11.6 g/dL (12.0-16.0); Lymphocytes Absolute Auto 1600 /uL (1100-4500); Lymphocytes Percent Auto 18.5 % (25-40); Mean Corpuscular HGB Conc 34.3 % (30-36); Mean Corpuscular Hemoglobin 34.7 PG (26-34); Mean Corpuscular Volume 101.2 fL (80-100); Monocytes Absolute Auto 700 /uL (0-900); Monocytes Percent Auto 7.7 % (3-14); Neutrophils Absolute Auto 6000 /uL (1500-7000); Platelet Count 317 X10^3/uL (150-400); Red Blood Cell Count 3.35 X10^6/uL (4.0-5.2); Red Cell Distribution Width 12.6 % (11.6-14.8); White Blood Cell Count 8.5 X10^3/uL (4.5-11.0)
== END ==
PROVIDERS: PCP Family Medicine; Referring Provider Family Medicine; Visit Provider Family Medicine
DX: E78.2 Mixed hyperlipidemia; E83.52 Hypercalcemia; N18.6 End stage renal disease; Z99.2 Dependence on renal dialysis; D63.1 Anemia in chronic kidney disease
CPT/HCPCS: 36415; 80053; 80061; 85025

== ENCOUNTER → 2023-11-20 09:29 | Outpatient (CLI) | payer MEDICARE, SELFPAY ==
--- NOTE | 2023-11-20 09:30 | DI.RAD.S_ITS ---
Bone Density Report Name: JAMEEL VAN Age: 83 Sex: Female Ethnicity: White Date of : 1940 Indication: postmenopausal osteoporosis; monitoring treatment; Referring Provider: KEITH RIVER Study: Bone densitometry was performed. Exam Date: November 20, 2023 Accession number: [id number] Bone Density: Region BMD T-score Z-score Classification AP Spine(L2, L3, L4) 1.008 -0.6 2.2 Normal Femoral Neck (Left) 0.504 -3.1 -0.8 Osteoporosis Total Hip (Left) 0.651 -2.4 -0.3 Osteopenia Femoral Neck (Right) 0.481 -3.3 -1.0 Osteoporosis Total Hip (Right) 0.538 -3.3 -1.2 Osteoporosis Total Hip Mean 0.595 -2.9 -0.8 Osteoporosis World Health Organization criteria for BMD impression classify patients as: Normal (T-score at or above -1.0), Osteopenia (T-score between -1.0 and -2.5), or Osteoporosis (T-score at or below -2.5). 10-year Fracture Risk: FRAX not reported because: Some T-score for Spine Total or Hip Total or Femoral Neck at or below -2.5 Treated for osteoporosis Previous Exams: -- Region Exam Age BMD T-score BMD Change BMD Change Date g/cm2 vs Baseline vs Previous -- AP Spine (L2-L4) 11/20/2023 83 1.008 -0.6 0.050 (5.2%)# 0.050 (5.2%)# 12/20/2009 69 0.959 -1.1 Total Hip(Left) 11/20/2023 83 0.651 -2.4 0.044 (7.3%)# 0.044 (7.3%)# 08/30/2022 81 0.607 -2.7 Total Hip(Right) 11/20/2023 83 0.538 -3.3 0.023 (4.4%)# 0.023 (4.4%)# 08/30/2022 81 0.515 -3.5 -- *Denotes significance at 95% confidence level, LSC for AP Spine = 0.022 g/cm2, LSC for Total Hip = 0.027 g/cm2 # Denotes dissimilar scan types or analysis methods Impression: The patient has osteoporosis, based on the Right Total Hip T-score. No significant bone loss was observed. Discussion: PATIENT UNDER TREATMENT WITH NO SIGNIFICANT BMD LOSS SINCE LAST EXAM. In an untreated patient, BMD typically declines with age. A lack of decline or gain is usually a sign that treatment is efficacious and fracture risk is reduced. It is important to ask patients whether they are taking their medications and to encourage continued and appropriate compliance with their osteoporosis therapies to reduce fracture risk. It is also important to review their risk factors and encourage appropriate calcium and vitamin D intakes, exercise, fall prevention and other lifestyle measures. Follow-Up: Consider a repeat BMD and Vertebral Fracture Assessment (VFA) exam in 2 years or sooner if medically necessary, to reassess this patient's status. Reported by: LILIAM HARO MD on 11/20/2023 10:06:00 AM.
== END ==
PROVIDERS: PCP Family Medicine; Referring Provider Family Medicine; Visit Provider Family Medicine
DX: M81.0 Age-related osteoporosis without current pathological fracture (principal); M85.88 Other specified disorders of bone density and structure, other site
CPT/HCPCS: 77080

== ENCOUNTER 2023-11-20 14:45 | Emergency (ER) | payer MEDICARE, SELFPAY ==
[2023-11-20] VITALS (7 sets, daily range): BP systolic 120–154; BP diastolic 56–67; PULSE 67–79; RESP 14–18; TEMP 37; O2SAT 93–95; BMI 19.1
--- NOTE | 2023-11-20 15:23 | DI.RAD.S_ITS ---
PROCEDURE: XR TIBIA FIBULA LT 2V INDICATIONS: fall TECHNIQUE: 2 views of the tibia and fibula were acquired. COMPARISON: [facility], CR, XR TIBIA FIBULA RT 2V, 07/30/2022, 8:47. FINDINGS: Bones: No fractures or dislocations. No suspicious bony lesions. Soft tissues: No suspicious soft tissue calcifications or masses. IMPRESSION: No acute fracture. No osseous lesion. If symptoms and/or clinical suspicion for pathology persist, further assessment with repeat, or advanced imaging (e.g., CT, MRI, or bone scan) may be helpful for further assessment. Dictated by: Titi Vanegas M.D. on 11/20/2023 at 16:03 Approved by: Titi Vanegas M.D. on 11/20/2023 at 16:03
--- NOTE | 2023-11-20 15:23 | DI.RAD.S_ITS ---
PROCEDURE: XR ANKLE LT MIN 3V INDICATIONS: fall TECHNIQUE: 3 views of the ankle were acquired. COMPARISON: [facility], CR, XR ANKLE RT MIN 3V, 07/30/2022, 8:47. FINDINGS: Bones: No fractures or dislocations. Ankle mortise is normally aligned. No suspicious bony lesions. Soft tissues: No tibiotalar joint effusion. Achilles tendon appears normal. IMPRESSION: No acute fracture. No osseous lesion. If symptoms and/or clinical suspicion for pathology persist, further assessment with repeat, or advanced imaging (e.g., CT, MRI, or bone scan) may be helpful for further assessment. Dictated by: Titi Vanegas M.D. on 11/20/2023 at 16:02 Approved by: Titi Vanegas M.D. on 11/20/2023 at 16:03
[2023-11-20 15:43] LABS: Add Manual Diff / Slide Review NO; Basophils Absolute Auto 100 /uL (0-100); Basophils Percent Auto 0.8 % (0-2); Eosinophils Absolute Auto 200 /uL (0-450); Eosinophils Percent Auto 2.5 % (2-4); Hematocrit 32.3 % (36-46); Hemoglobin 10.8 g/dL (12.0-16.0); Lymphocytes Absolute Auto 1200 /uL (1100-4500); Lymphocytes Percent Auto 16.4 % (25-40); Mean Corpuscular HGB Conc 33.5 % (30-36); Mean Corpuscular Hemoglobin 33.4 PG (26-34); Mean Corpuscular Volume 99.5 fL (80-100); Monocytes Absolute Auto 700 /uL (0-900); Neutrophils Absolute Auto 5300 /uL (1500-7000); Neutrophils Percent Auto 71.3 % (50-75); Platelet Count 289 X10^3/uL (150-400); Red Blood Cell Count 3.24 X10^6/uL (4.0-5.2); Red Cell Distribution Width 14.3 % (11.6-14.8); White Blood Cell Count 7.5 X10^3/uL (4.5-11.0)
--- NOTE | 2023-11-20 16:48 | ED_ITS ---
HPI - General Adult General Chief complaint: Trauma Stated complaint: fall, on baby aspiring Time Seen by Provider: 11/20/23 16:11 Source: patient and EMS Mode of arrival: Wheelchair History of Present Illness HPI narrative: Patient is an 83-year-old female who was brought in for evaluation of a left leg injury. States she was at home. It normal state of health. She went out to brain picker a package and she would ordered. States she lost her balance and fell. She injured the her left leg between her knee and her ankle. Difficulty walking afterwards. She did take 2 oxycodone prior to arrival. She has a dialysis patient. Had dialysis on Saturday. She has a walker at home but does not use it at baseline. She has on a baby aspirin. Prior to the fall she did not have palpitations or chest pain or shortness of breath. No lightheadedness. She did not hit her head. No neck pain. No back pain. Related Data Home Medications Medication Instructions Recorded Confirmed tetrahydrozoline 0.05 % eye drops 1 gtt OP PRN PRN Dry Eyes ##0 12/14/11 09/13/23 (Visine) magnesium hydroxide 2,400 mg/10 mL 30 ml PO DAILY PRN Constipation ##0 02/03/18 09/13/23 oral suspension (Milk Of Magnesia Concentrated) diphenhydramine HCl 25 mg capsule 25 mg PO Q4-6H PRN Allergic 06/05/18 09/13/23 (Benadryl) Symptoms Lactobacillus acidophilus 10 1 cap PO DAILY 08/21/18 09/13/23 billion cell capsule (Probiotic) multivitamin (Daily-Julee tablet) 1 tab PO DAILY 08/21/18 09/13/23 omega 8-htw-pfi-fish oil 1,000 mg 2,000 mg PO BID 01/17/19 09/13/23 (120 mg-180 mg) capsule (Fish Oil) zinc 50 mg tablet 50 mg PO DAILY 02/11/19 09/13/23 Previous Rx's Medication Instructions Recorded citalopram 20 mg tablet 60 mg (3 x 20 mg) PO DAILY #270 04/08/23 tabs diazepam 10 mg tablet (Valium) 30 mg (3 x 10 mg) PO BEDTIME #90 09/13/23 tabs oxycodone-acetaminophen 5 mg-325 1 tab PO BID PRN pain #60 tabs 09/13/23 mg tablet (Percocet) oxycodone-acetaminophen 5 mg-325 1 tab PO BID PRN pain #60 tabs 09/13/23 mg tablet (Percocet) oxycodone-acetaminophen 5 mg-325 1 tab PO BID PRN pain #60 tabs 09/13/23 mg tablet (Percocet) furosemide 40 mg tablet See Rx Instructions .Route 09/16/23 .COMPLEX #270 tabs Allergies Allergy/AdvReac Type Severity Reaction Status Date / Time acetaminophen [From TYLENOL] Allergy Mild LIMIT Verified 09/13/23 09:53 TYLENOL INTAKE, ONE KIDNEY cephalexin [CEPHALEXIN] Allergy Mild RASH Verified 09/13/23 09:53 Penicillins [PENICILLINS] Allergy Mild RASH Verified 09/13/23 09:53 ketorolac [KETOROLAC] Allergy Unknown NO TORADOL Verified 09/13/23 09:53 codeine [CODEINE] AdvReac Mild NAUSEA,VOMI Verified 09/13/23 09:53 TING,HALLUC INATIONS hydrocodone [HYDROCODONE] AdvReac Mild NAUSEA,VOMITING,DIDN'T Verified 09/13/23 09:53 WORK WELL TO CONTROL PAIN prednisone [PREDNISONE] AdvReac Mild SEVERE Verified 09/13/23 09:53 HALLUCINATIONS Review of Systems Constitutional Constitutional: Reports system reviewed and no additional complaints, except as documented Musculoskeletal Musculoskeletal: Reports system reviewed and no additional complaints, except as documented Integumentary/Breasts Skin/Breast: Reports system reviewed and no additional complaints, except as documented Neurologic Neurologic: Reports system reviewed and no additional complaints, except as documented Hematologic/Lymphatic On Anticoagulants: No Patient History Medical History Chronic low back pain Anemia, chronic renal failure Hyperlipidemia S/p nephrectomy Anxiety Hypertension SBO (small bowel obstruction) History of renal cell cancer 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 ESRD (end stage renal disease) on dialysis Chronic osteomyelitis of left ankle (12/21/15) Intestinal obstruction (08/03/15) Small intestine obstruction Acute renal failure on dialysis Surgical History H/O carpal tunnel repair H/O hernia repair S/P DENIS-BSO S/P tonsillectomy and adenoidectomy Social History Smoking Status: Never smoker Smoking Status: Never smoker alcohol intake frequency: holidays/special occasions only Substance Use Type: does not use Exam Initial Vital Signs Initial Vital Signs: Vital Signs Temperature 98.6 F 11/20/23 14:49 Pulse Rate 79 11/20/23 14:49 Respiratory Rate 14 11/20/23 14:49 Pulse Oximetry 94 11/20/23 14:49 Oxygen Delivery Method Room Air 11/20/23 14:49 Cardio Pulses: dorsalis pedis present on the left Skin Other: Significant bruising to mostly the posterior aspect of the left lower leg but some on the anterior aspect as well. Neuro Sensory Exam: no sensory deficits noted Extrem General: capillary refill normal Other: Significant swelling to the left lower leg. Her left knee is unremarkable. Left ankle is unremarkable. Her Achilles tendon is intact. Compartments are firm but soft. Course Orders Ordered: ED Orders 11/20/23 15:19 CBC Auto Diff [Complete Blood Count AUTO DIFF] Stat 11/20/23 15:23 XR ankle LT min 3V Stat XR tibia fibula LT 2V Stat 11/20/23 15:28 EKG-12 Lead Stat Vital Signs Vital signs: Vital Signs - 8 hr 11/20/23 14:49 11/20/23 15:24 11/20/23 15:53 Temperature 98.6 F Pulse Rate 79 72 71 Respiratory Rate 14 18 14 Blood Pressure 120/59 L 121/58 L Pulse Oximetry 94 94 94 Oxygen Delivery Method Room Air Room Air Room Air 11/20/23 16:11 11/20/23 16:15 11/20/23 16:15 Temperature Pulse Rate 72 71 Respiratory Rate 16 15 Blood Pressure 120/56 L Pulse Oximetry 93 93 Oxygen Delivery Method Room Air 11/20/23 16:30 11/20/23 16:30 Temperature Pulse Rate 67 Respiratory Rate 16 Blood Pressure 120/56 L Pulse Oximetry 93 Oxygen Delivery Method Medical Decision Making Lab Data Lab results reviewed: Yes I reviewed the patient's lab results. 11/20/23 15:19 Labs: Lab Results 11/20/23 Range/Units 15:19 WBC 7.5 (4.5-11.0) X10^3/uL RBC 3.24 L (4.0-5.2) X10^6/uL Hgb 10.8 L (12.0-16.0) g/dL Hct 32.3 L (36-46) % MCV 99.5 (80-100) fL MCH 33.4 (26-34) PG MCHC 33.5 (30-36) % RDW 14.3 (11.6-14.8) % Plt Count 289 (150-400) X10^3/uL Neut % (Auto) 71.3 (50-75) % Lymph % (Auto) 16.4 L (25-40) % [place] % (Auto) 9.0 (3-14) % Eos % (Auto) 2.5 (2-4) % Baso % (Auto) 0.8 (0-2) % Neut # (Auto) 5300 (6228-2233) /uL Lymph # (Auto) 1200 (8050-8565) /uL [place] # (Auto) 700 (0-900) /uL Eos # (Auto) 200 (0-450) /uL Baso # (Auto) 100 (0-100) /uL Imaging Data Extremity x-ray #1: Radiologist's Impression: PROCEDURE: XR TIBIA FIBULA LT 2V INDICATIONS: fall TECHNIQUE: 2 views of the tibia and fibula were acquired. COMPARISON: [facility], XR TIBIA FIBULA RT 2V, 07/30/2022, 8:47. FINDINGS: Bones: No fractures or dislocations. No suspicious bony lesions. Soft tissues: No suspicious soft tissue calcifications or masses. IMPRESSION: No acute fracture. No osseous lesion. If symptoms and/or clinical suspicion for pathology persist, further assessment with repeat, or advanced imaging (e.g., CT, MRI, or bone scan) may be helpful for further assessment. Extremity x-ray #2: Radiologist's Impression: PROCEDURE: XR ANKLE LT MIN 3V INDICATIONS: fall TECHNIQUE: 3 views of the ankle were acquired. COMPARISON: [facility], XR ANKLE RT MIN 3V, 07/30/2022, 8:47. FINDINGS: Bones: No fractures or dislocations. Ankle mortise is normally aligned. No suspicious bony lesions. Soft tissues: No tibiotalar joint effusion. Achilles tendon appears normal. IMPRESSION: No acute fracture. No osseous lesion. If symptoms and/or clinical suspicion for pathology persist, further assessment with repeat, or advanced imaging (e.g., CT, MRI, or bone scan) may be helpful for further assessment ECG Data Attestation: I personally reviewed and interpreted this ECG as follows: Interpretation: Sinus rhythm Ventricular rate is 72 Normal QRS Normal QTC Nonspecific ST T wave change MDM Narrative Medical decision making narrative: No fractures noted on the x-rays. She does have extensive bruising to the area between her knee and her ankle. Her compartments are firm but are soft. She is brisk cap refill. Positive DP pulses. Sensation is normal. Has some tenderness with flexion-extension of the ankle but I would not say that this is pain out of proportion. Had an extensive discussion with her regarding compartment syndrome. I do not feel that is the case today but she was given specific return precautions for this. She has a walker at home that she can use. We discussed that the x-ray did not show any signs of a fracture. I do have some concern that there is a muscle tear based on the amount of bruising however her Achilles tendon is intact. No indication for MRI currently. Will have patient contact her primary doctor for follow-up. She expressed understanding and agreement. Discharge Plan Departure Patient Disposition: Home Clinical Impression: Contusion of leg, left Instructions: How To Perform RICE (Rest, Ice, Compress, Elevate) Activity Restrictions/Additional Instructions: The x-rays did not show any signs of a fracture so you can walk on your leg as tolerated. You can use the oxycodone that you have at home for discomfort. I recommend that you try to keep your leg elevated as much as possible like we discussed. If you start to get worsening pain, fevers, discoloration of your left foot or any other worsening symptoms please return to the emergency department for further evaluation. Prescriptions: No Action tetrahydrozoline [Visine] 15 ML drops 1 gtt OP PRN PRN (Reason: Dry Eyes) Qty: 0 Milk Of Magnesia Concentrated 2,400 MG/10 ML suspension 30 ml PO DAILY PRN (Reason: Constipation) Qty: 0 citalopram 20 mg tablet 60 mg PO DAILY Qty: 270 3RF furosemide 40 mg tablet See Rx Instructions .ROUTE .COMPLEX Qty: 270 0RF Dose Instruction: TAKE 1 TABLET BY MOUTH THREE TIMES DAILY Rx Instructions: TAKE 1 TABLET BY MOUTH THREE TIMES DAILY oxycodone-acetaminophen [Percocet] 5-325 mg tablet 1 tab PO BID PRN (Reason: pain) Qty: 60 0RF diazepam [Valium] 10 mg tablet 30 mg PO BEDTIME Qty: 90 0RF oxycodone-acetaminophen [Percocet] 5-325 mg tablet 1 tab PO BID PRN (Reason: pain) Qty: 60 0RF oxycodone-acetaminophen [Percocet] 5-325 mg tablet 1 tab PO BID PRN (Reason: pain) Qty: 60 0RF zinc 50 mg tablet 50 mg PO DAILY diphenhydramine HCl [Benadryl] 25 mg Capsule 25 mg PO Q4-6H PRN (Reason: Allergic Symptoms) Probiotic 10 billion cell Capsule 1 cap PO DAILY multivitamin [Daily-Julee] Tablet 1 tab PO DAILY omega 6-dfy-azr-fish oil [Fish Oil] 1,000 mg (120 mg-180 mg) Capsule 2,000 mg PO BID Referrals: Rashel Ríos MD [Primary Care Provider] - Stand Alone Forms: Patient Portal/API
== END 2023-11-20 17:30 | disposition home or self-care (01) ==
PROVIDERS: Emergency Provider Emergency Medicine; PCP Family Medicine
DX: S80.12XA Contusion of left lower leg, initial encounter (principal); W18.30XA Fall on same level, unspecified, initial encounter; M81.0 Age-related osteoporosis without current pathological fracture; M85.88 Other specified disorders of bone density and structure, other site
CPT/HCPCS: 36415; 73590; 73610; 77080; 85025; 93005; 99284

== ENCOUNTER 2023-11-20 21:01 | Inpatient (IN) | payer MEDICARE, SELFPAY ==
[2023-11-20 21:06] VITALS: BP 141/64; PULSE 82; RESP 20; TEMP 36.8; O2SAT 96; BMI 19.1
--- NOTE | 2023-11-20 21:24 | ED_ITS ---
HPI - Wound/Laceration General Chief Complaint: Wound/Laceration Stated Complaint: GLF- L leg hematoma ruptured Time Seen by Provider: 11/20/23 21:15 Source: patient and EMS Mode of arrival: EMS History of Present Illness HPI narrative: 83-year-old woman history of renal cell cancer post nephrectomy currently dialysis patient with dialysis Saturday and Saturday with anemia of chronic disease, chronic musculoskeletal pain for which she uses Percocet, depression and anxiety presents complaining that her ?bruise has broken open?. She apparently had a mechanical fall earlier today was evaluated in the emergency department found to have a large hematoma over the anterior garcia but no underlying bony injury and was discharged home. She would taken 2 Percocet and was relaxing when she noticed that she was having increased pain and then bleeding from her left anterior garcia in investigating further there are 2 vertical lacerations both 3-4 cm with blood and hematoma oozing from them. She is also developing some vesicles around the area from Internal pressure to the skin. She notes that the pain has actually improved slightly as the pressure has been relieved. Bleeding is controlled, she has clotted nicely. She has good distal pulses and no significant calf tenderness or obvious signs of clinical compartment syndrome. Related Data Home Medications Medication Instructions Recorded Confirmed tetrahydrozoline 0.05 % eye drops 1 gtt OP PRN PRN Dry Eyes ##0 12/14/11 09/13/23 (Visine) magnesium hydroxide 2,400 mg/10 mL 30 ml PO DAILY PRN Constipation ##0 02/03/18 11/20/23 oral suspension (Milk Of Magnesia Concentrated) diphenhydramine HCl 25 mg capsule 25 mg PO Q4-6H PRN Allergic 06/05/18 09/13/23 (Benadryl) Symptoms Lactobacillus acidophilus 10 1 cap PO DAILY 08/21/18 09/13/23 billion cell capsule (Probiotic) multivitamin (Daily-Julee tablet) 1 tab PO DAILY 08/21/18 11/20/23 omega 5-ouy-flz-fish oil 1,000 mg 4,000 mg PO DAILY 01/17/19 11/20/23 (120 mg-180 mg) capsule (Fish Oil) zinc 50 mg tablet 50 mg PO DAILY 02/11/19 09/13/23 oxycodone-acetaminophen 5 mg-325 1 tab PO BID PRN pain 11/20/23 11/20/23 mg tablet Previous Rx's Medication Instructions Recorded citalopram 20 mg tablet 60 mg (3 x 20 mg) PO DAILY #270 04/08/23 tabs diazepam 10 mg tablet (Valium) 30 mg (3 x 10 mg) PO BEDTIME #90 09/13/23 tabs oxycodone-acetaminophen 5 mg-325 1 tab PO BID PRN pain #60 tabs 09/13/23 mg tablet (Percocet) oxycodone-acetaminophen 5 mg-325 1 tab PO BID PRN pain #60 tabs 09/13/23 mg tablet (Percocet) oxycodone-acetaminophen 5 mg-325 1 tab PO BID PRN pain #60 tabs 09/13/23 mg tablet (Percocet) furosemide 40 mg tablet See Rx Instructions .Route 09/16/23 .COMPLEX #270 tabs Allergies Allergy/AdvReac Type Severity Reaction Status Date / Time acetaminophen [From TYLENOL] Allergy Mild LIMIT Verified 09/13/23 09:53 TYLENOL INTAKE, ONE KIDNEY cephalexin [CEPHALEXIN] Allergy Mild RASH Verified 09/13/23 09:53 Penicillins [PENICILLINS] Allergy Mild RASH Verified 09/13/23 09:53 ketorolac [KETOROLAC] Allergy Unknown NO TORADOL Verified 09/13/23 09:53 codeine [CODEINE] AdvReac Mild NAUSEA,VOMI Verified 09/13/23 09:53 TING,HALLUC INATIONS hydrocodone [HYDROCODONE] AdvReac Mild NAUSEA,VOMITING,DIDN'T Verified 09/13/23 09:53 WORK WELL TO CONTROL PAIN prednisone [PREDNISONE] AdvReac Mild SEVERE Verified 09/13/23 09:53 HALLUCINATIONS Review of Systems Review of Systems Narrative: Pertinent positive and negative findings as per HPI Patient History Medical History Chronic low back pain Anemia, chronic renal failure Hyperlipidemia S/p nephrectomy Anxiety Hypertension SBO (small bowel obstruction) History of renal cell cancer 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 ESRD (end stage renal disease) on dialysis Chronic osteomyelitis of left ankle (12/21/15) Intestinal obstruction (08/03/15) Small intestine obstruction Acute renal failure on dialysis Surgical History H/O carpal tunnel repair H/O hernia repair S/P DENIS-BSO S/P tonsillectomy and adenoidectomy Social History Smoking Status: Current every day smoker Smoking Status: Current every day smoker tobacco type: cigarettes alcohol intake frequency: holidays/special occasions only Substance Use Type: does not use Exam Initial Vital Signs Initial Vital Signs: Vital Signs Temperature 98.2 F 11/20/23 21:06 Pulse Rate 82 11/20/23 21:06 Respiratory Rate 20 11/20/23 21:06 Blood Pressure 141/64 H 11/20/23 21:06 Pulse Oximetry 96 11/20/23 21:06 Oxygen Delivery Method Room Air 11/20/23 21:06 General: Healthy appearing, in no acute distress. Able to give a complete and coherent history. Well-nourished well-developed HEENT: Moist mucous membranes, normal sclera with reactive pupils, Neck: No JVD, supple Respiratory: Lungs are clear to auscultation, no wheezing no rales no rhonchi. Full and symmetrical air movement Cardiac: Regular rate and rhythm no murmurs no bruits Abdomen: Soft, nontender, good bowelSkin: Warm and dry, no rashes Neurologic: Grossly neurologically intact with no obvious asymmetries or abnormalities Extremities: Left lower extremity swollen with a large hematoma over the entire anterior garcia and extending almost to the knee. There were 2 vertical wounds with the skin has literally popped open and hematoma is extruding out from the wounds. Bleeding is stopped at this point. She has some vesicles developing in the same area from Internal pressure. No signs of infection. She does have some swelling in the left foot and knee but she has good distal pulses, no calf tenderness, she does not have pain out of proportion to her exam. Psych: Cooperative, appropriate insight and affect Course Orders Ordered: ED Orders 11/20/23 21:38 Complete Blood Count AUTO DIFF Stat Comprehensive Metabolic Panel Stat Vital Signs Vital signs: Vital Signs - 8 hr 11/20/23 21:06 11/20/23 22:30 Temperature 98.2 F Pulse Rate 82 69 Respiratory Rate 20 18 Blood Pressure 141/64 H 145/65 H Pulse Oximetry 96 94 Oxygen Delivery Method Room Air Room Air MDM - Wound/Laceration Lab Data 11/20/23 22:05 11/20/23 22:05 Labs: Lab Results 11/20/23 Range/Units 22:05 WBC 8.7 (4.5-11.0) X10^3/uL RBC 2.88 L (4.0-5.2) X10^6/uL Hgb 9.7 L (12.0-16.0) g/dL Hct 29.0 L (36-46) % MCV 100.7 H (80-100) fL MCH 33.8 (26-34) PG MCHC 33.5 (30-36) % RDW 14.2 (11.6-14.8) % Plt Count 264 (150-400) X10^3/uL Neut % (Auto) 74.2 (50-75) % Lymph % (Auto) 16.6 L (25-40) % [place] % (Auto) 6.8 (3-14) % Eos % (Auto) 1.6 L (2-4) % Baso % (Auto) 0.8 (0-2) % Neut # (Auto) 6500 (0484-0024) /uL Lymph # (Auto) 1500 (5192-7622) /uL [place] # (Auto) 600 (0-900) /uL Eos # (Auto) 100 (0-450) /uL Baso # (Auto) 100 (0-100) /uL Sodium 134 L (137-145) mmol/L Potassium 4.9 (3.4-5.1) mmol/L Chloride 103 (98-107) mmol/L Carbon Dioxide 27 (22-32) mmol/L BUN 55 H (7-17) mg/dL Creatinine 3.11 H (0.52-1.04) mg/dL Estimated GFR 15 L (>60) mL/min BUN/Creatinine Ratio 17.7 (6-22) Glucose 101 (80-110) mg/dL Calcium 9.8 (8.4-10.2) mg/dL Total Bilirubin 0.4 (0.2-1.3) mg/dL AST TNP ALT 68 H (<35) IU/L Alkaline Phosphatase 112 (38-126) U/L Total Protein 6.9 (6.3-8.2) g/dL Albumin 3.9 (3.5-5.0) g/dL Globulin 3.0 (1.7-4.1) g/dL Albumin/Globulin Ratio 1.3 (1.0-2.8) MDM Narrative Medical decision making narrative: CC: Bleeding from her lower extremities Complicating co-morbidities: she is on aspirin only, anemia of chronic disease, hypertension, history of renal cell cancer post nephrectomy currently dialysis patient with dialysis Saturday and Saturday Data collected from: patient Social determinants of health that may influence the patients condition: Dialysis on Tuesdays and Saturdays Medical records reviewed: Primary care notes from September 13 as well as ER visit from earlier today and x-rays are reviewed Differential considered: Large hematoma, worsening anemia, infection, compartment syndrome, Exam documented above, pertinent findings include: 83-year-old woman who is not in any acute distress but has a hematoma that is so large on the left anterior garcia that she has spontaneously caused vertical ruptures to skin over the anterior garcia with part of the hip hematoma extruding out. Bleeding has been controlled. No signs of compartment syndrome and distal pulses are palpable Lab Test results independently reviewed as above. Pertinent findings: CBC done earlier today shows an H&H of 10.8 and 32.3 this is a decrease from 11.6 and 34.0 noted in mid May. Currently at 9.7 and 29.0. This suggests a total fall over the course of the afternoon since her initial accident a drop of almost 2 hemoglobin points and 5 hematocrit points. Imaging studies independently reviewed: Tib-fib and ankle x-rays are independently reviewed from earlier visit today. No signs of fracture. Consultations: , orthopedic surgeon. His recommendation is not any type of procedural intervention to try and remove the clot, watch her signs of compartment syndrome, pressure dressing. Said he would happy to see her in follow-up to help with wound care Discussed with Dr Molina, hospitalist Treatments: Pain is adequately controlled initially, she is allergic to cephalosporins and penicillins so will be given doxycycline to prevent infection (no dosing changes due to dialysis required) Discussion: 83-year-old woman with an anterior garcia hematoma secondary to fall earlier today severe enough that she actually has caused vesicle formation and ruptured the skin over the anterior tibialis in [address] to allow pressure release. Based on H&H I suspect there is 2-3 units of blood that have bled into this area of hematoma. There is no sign of compartment syndrome or infection at this time. Given her history of chronic anemia will see how much blood she is lost into the anterior garcia, I am concerned for infection and secondary complications due to pressure in the anterior garcia including skin necrosis, additional skin breakdown, compartment syndrome and other vascular compromise. We will recommend hospitalization overnight make sure that is pain is controlled, symptoms are not worsening and that she will be safe for discharge. I have started doxycycline for infection prevention. This does not need any adjustment with dialysis. Next dialysis is not due until November 23 and she said that she can easily miss a dialysis appointment without any complications. I do not think that she needs to be transferred to hospital with dialysis capacity at this time Discharge Plan Departure Patient Disposition: Admitted as Observation Clinical Impression: Hematoma and contusion, Chronic renal insufficiency, stage V, Skin breakdown, Acute blood loss anemia (ABLA) Admit Date/Time: 11/20/23 22:57 Admit Provider: Surinder Anders
[2023-11-20 22:16] LABS: Add Manual Diff / Slide Review NO; Basophils Absolute Auto 100 /uL (0-100); Basophils Percent Auto 0.8 % (0-2); Eosinophils Absolute Auto 100 /uL (0-450); Eosinophils Percent Auto 1.6 % (2-4); Hemoglobin 9.7 g/dL (12.0-16.0); Lymphocytes Absolute Auto 1500 /uL (1100-4500); Lymphocytes Percent Auto 16.6 % (25-40); Mean Corpuscular HGB Conc 33.5 % (30-36); Mean Corpuscular Hemoglobin 33.8 PG (26-34); Mean Corpuscular Volume 100.7 fL (80-100); Monocytes Absolute Auto 600 /uL (0-900); Monocytes Percent Auto 6.8 % (3-14); Neutrophils Absolute Auto 6500 /uL (1500-7000); Neutrophils Percent Auto 74.2 % (50-75); Platelet Count 264 X10^3/uL (150-400); Red Blood Cell Count 2.88 X10^6/uL (4.0-5.2); Red Cell Distribution Width 14.2 % (11.6-14.8); White Blood Cell Count 8.7 X10^3/uL (4.5-11.0)
[2023-11-20 22:30] VITALS: BP 145/65; PULSE 69; RESP 18; O2SAT 94
[2023-11-20 22:32] LABS: Alanine Aminotransferase 68 IU/L (<35); Albumin 3.9 g/dL (3.5-5.0); Albumin Globulin Ratio 1.3 (1.0-2.8); Alkaline Phosphatase 112 U/L (38-126); BUN Creatinine Ratio 17.7 (6-22); Bilirubin Total 0.4 mg/dL (0.2-1.3); Blood Urea Nitrogen 55 mg/dL (7-17); Calcium 9.8 mg/dL (8.4-10.2); Carbon Dioxide 27 mmol/L (22-32); Chloride 103 mmol/L (98-107); Estimated Glomerular Filt Rate 15 mL/min (>60); Glucose 101 mg/dL (80-110); Potassium 4.9 mmol/L (3.4-5.1); Sodium 134 mmol/L (137-145); Total Protein 6.9 g/dL (6.3-8.2)
[2023-11-20] MEDS: DOXYCYCLINE HYCLATE 100 MG TABLET PO (23:14)
[2023-11-20 23:17] VITALS: BP 122/56; PULSE 67; RESP 18; O2SAT 97
--- NOTE | 2023-11-20 23:23 | PM.HP.1 ---
History of Present Illness History of Present Illness Date Patient Seen: 11/20/23 Chief complaint: GLF- L leg hematoma ruptured Narrative: 83 y/o had accidental fall earlier today with LLE injury. Seen in the ED with hematoma and discharged home. At home hematome started to bleed and she came again to the ED. In the meantime, she dropped HH few points. Her fall was accidental. She had another GLF in June last year. On admission to ED hematoma was oozing but then bleeding stopped. 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 ESRD (end stage renal disease) on dialysis Chronic osteomyelitis of left ankle (12/21/15) Intestinal obstruction (08/03/15) Small intestine obstruction Acute renal failure on dialysis Surgical History H/O carpal tunnel repair H/O hernia repair S/P DENIS-BSO S/P tonsillectomy and adenoidectomy Social History household members: none Smoking Status: Current every day smoker Meds Home Medications and Allergies Home Medications Medication Instructions Recorded Confirmed Type tetrahydrozoline 0.05 % eye drops 1 gtt OP PRN PRN Dry Eyes ##0 12/14/11 11/20/23 History (Visine) magnesium hydroxide 2,400 mg/10 mL 30 ml PO DAILY PRN Constipation ##0 02/03/18 11/20/23 History oral suspension (Milk Of Magnesia Concentrated) diphenhydramine HCl 25 mg capsule 25 mg PO Q4-6H PRN Allergic 06/05/18 11/20/23 History (Benadryl) Symptoms Lactobacillus acidophilus 10 1 cap PO DAILY 08/21/18 11/20/23 History billion cell capsule (Probiotic) multivitamin (Daily-Julee tablet) 1 tab PO DAILY 08/21/18 11/20/23 History omega 3-ams-msz-fish oil 1,000 mg 4,000 mg PO DAILY 01/17/19 11/20/23 History (120 mg-180 mg) capsule (Fish Oil) zinc 50 mg tablet 50 mg PO DAILY 02/11/19 11/20/23 History citalopram 20 mg tablet 60 mg (3 x 20 mg) PO DAILY #270 04/08/23 11/20/23 Rx tabs diazepam 10 mg tablet (Valium) 30 mg (3 x 10 mg) PO BEDTIME #90 09/13/23 11/20/23 Rx tabs furosemide 40 mg tablet (Lasix) 40 mg PO TID 11/20/23 11/20/23 History oxycodone-acetaminophen 5 mg-325 1 tab PO BID PRN pain 11/20/23 11/20/23 History mg tablet Adult Low Dose Aspirin 1 tab PO 11/21/23 History Allergies Allergy/AdvReac Type Severity Reaction Status Date / Time acetaminophen [From TYLENOL] Allergy Mild LIMIT Verified 09/13/23 09:53 TYLENOL INTAKE, ONE KIDNEY cephalexin [CEPHALEXIN] Allergy Mild RASH Verified 09/13/23 09:53 Penicillins [PENICILLINS] Allergy Mild RASH Verified 09/13/23 09:53 ketorolac [KETOROLAC] Allergy Unknown NO TORADOL Verified 09/13/23 09:53 codeine [CODEINE] AdvReac Mild NAUSEA,VOMI Verified 09/13/23 09:53 TING,HALLUC INATIONS hydrocodone [HYDROCODONE] AdvReac Mild NAUSEA,VOMITING,DIDN'T Verified 09/13/23 09:53 WORK WELL TO CONTROL PAIN prednisone [PREDNISONE] AdvReac Mild SEVERE Verified 09/13/23 09:53 HALLUCINATIONS Review of Systems Constitutional Comments: w/o chills or fever Cardiovascular Comments: w/o chest pain Respiratory Comments: chronic shortness of breath Gastrointestinal Comments: w/o complaints Genitourinary Comments: makes urine, dialyzed on Tue and Sat Musculoskeletal Comments: Lt lower leg pain Exam Vital Signs (past 8 hours): - 11/20/23 21:06 11/20/23 22:30 11/20/23 23:17 Temperature 98.2 F Pulse Rate 82 69 67 Respiratory Rate 20 18 18 Blood Pressure 141/64 H 145/65 H 122/56 L Pulse Oximetry 96 94 97 Oxygen Delivery Method Room Air Room Air Room Air Oxygen Delivery Method Room Air Narrative Exam Narrative: Laying in bed in no distress HENMT Other: normocephalicO2 NC Eyes Other: equal, reactive, EOMI Neck Other: supple Resp Other: normal respiratory effort Cardio Other: RRR Skin Other: large Lt garcia hematoma with 2 lacerations Neuro Other: w/o deficits Extrem Other: see above Psych Other: lucid Objective Labs 11/20/23 22:05 11/20/23 22:05 Labs: Laboratory Results - last 24 hr 11/20/23 22:05 WBC 8.7 RBC 2.88 L Hgb 9.7 L Hct 29.0 L MCV 100.7 H MCH 33.8 MCHC 33.5 RDW 14.2 Plt Count 264 Neut % (Auto) 74.2 Lymph % (Auto) 16.6 L [place] % (Auto) 6.8 Eos % (Auto) 1.6 L Baso % (Auto) 0.8 Neut # (Auto) 6500 Lymph # (Auto) 1500 [place] # (Auto) 600 Eos # (Auto) 100 Baso # (Auto) 100 Sodium 134 L Potassium 4.9 Chloride 103 Carbon Dioxide 27 BUN 55 H Creatinine 3.11 H Estimated GFR 15 L BUN/Creatinine Ratio 17.7 Glucose 101 Calcium 9.8 Total Bilirubin 0.4 AST TNP ALT 68 H Alkaline Phosphatase 112 Total Protein 6.9 Albumin 3.9 Globulin 3.0 Albumin/Globulin Ratio 1.3 Assessment & Plan Assessment and plan (1) Traumatic hematoma of left lower leg: Status: Acute Plan: Placed in observation due to it's size and active bleed on admission to ED. No evidence of compartment syndrome. Doxycycline 100 mg bid started in ED, to continue (2) Acute blood loss anemia (ABLA): Status: Acute Plan: CBC in AM Sustained significant bleed (3) Anemia, chronic renal failure: Qualifiers: Chronic kidney disease stage: stage 5 Qualified Code(s): N18.5 - Chronic kidney disease, stage 5; D63.1 - Anemia in chronic kidney disease Status: Acute Plan: chronic (4) Renovascular hypertension: Status: Acute Plan: Lasix 40 mg tid (5) Depression with anxiety: Status: Acute Plan: Celexa, Diazepam (6) ESRD (end stage renal disease) on dialysis: Status: Acute Plan: HD on Tue and Sat No recent changes Maintains urinary output
[2023-11-20 23:25] VITALS: BP 143/44; PULSE 72; RESP 16; TEMP 36.1; O2SAT 99
[2023-11-20 23:33] VITALS: BMI 19.1
[2023-11-21] MEDS: OXYCODONE/ACETAMINOPHEN 5/325 TABLET 1 TAB PO ×4 (00:16→21:28)
--- NOTE | 2023-11-21 00:31 | PC.WOUNDPHOT ---
Wound to left leg, small skin tear/bruise to right elbow, fistula to left upper arm, bruise to left arm.
--- NOTE | 2023-11-21 00:52 | PC.ADMIT ---
[email or web address] [place] Admission Note: Patient admitted to AC unit from ED at 23:25, transferred via stretcher, stand pivot to bed. Alert and oriented x 4, able to make needs known. Bed in low, locked position. Call light within reach and bed alarm on. The patient,Kristine Damon,83 y/o, was given written information regarding hospital policies, unit procedures and contact persons. Patient's smoking status: Current every day smoker. Vital Signs - 8 hr 11/20/23 21:06 11/20/23 22:30 11/20/23 23:05 Temperature 98.2 F Pulse Rate 82 69 Respiratory Rate 20 18 Blood Pressure 141/64 H 145/65 H Pulse Oximetry 96 94 Oxygen Delivery Method Room Air Room Air Room Air Oxygen Flow Rate 11/20/23 23:17 11/20/23 23:25 Temperature 96.9 F L Pulse Rate 67 72 Respiratory Rate 18 16 Blood Pressure 122/56 L 143/44 H Pulse Oximetry 97 99 Oxygen Delivery Method Room Air Oxygen Flow Rate 0
[2023-11-21 07:00] LABS: Add Manual Diff / Slide Review NO; Basophils Absolute Auto 100 /uL (0-100); Basophils Percent Auto 0.7 % (0-2); Eosinophils Absolute Auto 200 /uL (0-450); Eosinophils Percent Auto 2.3 % (2-4); Hematocrit 27.1 % (36-46); Hemoglobin 9.2 g/dL (12.0-16.0); Lymphocytes Absolute Auto 2700 /uL (1100-4500); Lymphocytes Percent Auto 29.1 % (25-40); Mean Corpuscular HGB Conc 33.9 % (30-36); Mean Corpuscular Hemoglobin 34.2 PG (26-34); Mean Corpuscular Volume 100.8 fL (80-100); Monocytes Absolute Auto 700 /uL (0-900); Monocytes Percent Auto 7.5 % (3-14); Neutrophils Absolute Auto 5600 /uL (1500-7000); Neutrophils Percent Auto 60.4 % (50-75); Platelet Count 270 X10^3/uL (150-400); Red Blood Cell Count 2.68 X10^6/uL (4.0-5.2); Red Cell Distribution Width 14.7 % (11.6-14.8); White Blood Cell Count 9.2 X10^3/uL (4.5-11.0)
[2023-11-21 07:14] LABS: BUN Creatinine Ratio 17.3 (6-22); Blood Urea Nitrogen 56 mg/dL (7-17); Calcium 9.5 mg/dL (8.4-10.2); Carbon Dioxide 26 mmol/L (22-32); Chloride 103 mmol/L (98-107); Estimated Glomerular Filt Rate 14 mL/min (>60); Glucose 95 mg/dL (80-110); HEMOLYSIS < 15 (0-50); Potassium 5.3 mmol/L (3.4-5.1); Sodium 133 mmol/L (137-145)
[2023-11-21 08:22] VITALS: BP 119/44; PULSE 68; RESP 16; TEMP 35.9; O2SAT 99
[2023-11-21] MEDS: CITALOPRAM 10 MG TABLET 60 MG PO (09:01)
[2023-11-21] MEDS: LACTOBACILLUS ACIDOPHILUS TABLET 1 EACH PO (09:02)
[2023-11-21] MEDS: DOXYCYCLINE HYCLATE 100 MG TABLET PO ×2 (09:02→22:15)
[2023-11-21] MEDS: MULTIVITAMIN 1 TABLET 1 TAB PO (09:02)
[2023-11-21] MEDS: FUROSEMIDE 40 MG TABLET PO ×3 (09:02→22:15)
--- NOTE | 2023-11-21 11:27 | CM.DANOTE ---
Initial DCP Assessment Note Pt is an 83 yo female, resident of [place], arrives after a fall with hematoma, patient admitted for observation and trending of H+H. PCP: Rashel Ríos Payer: M[employer] Reviewed chart, pt discussed in multidisciplinary rounds this morning. Patient likely to remain here overnight as H+H still dropping per Dr Chow. Met w/patient, introduced self and role. Patient lives alone, indp in all aspects, drives. Patient's DPOA is novabharat Dsouzachaparro Doshi [phone] who lives in [place]. Patient denies needs from this CM team currently and plans to get a ride home w/friend upon discharge. No Hx of HH, hx at SNF [facility]. No barriers identified at this time to patient's safe discharge home w/family to assist as needed; close outpatient f/u recommended. CM team will plan to follow closely in case any DC needs or concerns arise. MIRANDA Philip Discharge Planning/Care Management CM Discharge Assessment Start: 11/21/23 11:26 Freq: Status: Active Protocol: Document 11/21/23 11:26 URI (Rec: 11/21/23 11:27 URI [id number]) Discharge Planning Assessment Assigned Senior Mechanical Project Engineer MIRANDA Gamboa DPOA/Assigned Designee Name esperanza Gasca Contact Information [phone] Advance Directives? No History Provided By Patient Prior Living Arrangements House Household Members none Type of transporation used prior to Drives own vehicle admit Independent with ADL's Yes Is patient alert and oriented? Yes Barriers to Discharge No Discharge Plan Home Transportation Arrangement Friend Referrals Initiated None needed
[2023-11-21] MEDS: MORPHINE 2 MG/ML INJ IV (13:46)
[2023-11-21 14:11] VITALS: BP 109/38; PULSE 67; RESP 16; TEMP 35.9; O2SAT 97
[2023-11-21 15:30] LABS: Hematocrit 22.8 % (36-46); Hemoglobin 7.7 g/dL (12.0-16.0)
--- NOTE | 2023-11-21 15:40 | PM.PN.1 ---
Subjective Subjective Interval history: 83 F admitted with a left leg hematoma after a fall. Continues to have intermittent pain, but overall improved today. h/h continues to fall, now down to 7.7. Calf remains soft, with good distal pulses on exam. Exam Vital Signs (past 8 hours): - 11/21/23 08:22 11/21/23 14:11 Temperature 96.7 F L 96.7 F L Pulse Rate 68 67 Respiratory Rate 16 16 Blood Pressure 119/44 L 109/38 L Pulse Oximetry 99 97 Oxygen Flow Rate 0 0 Oxygen Delivery Method Room Air Oxygen Flow Rate 0 Narrative Exam Narrative: Gen: no acute distress, WDWN CV: RRR no m/r/g Pulm CTA b/l Abd: S NT ND Ext: left calf bandaged with ecchymosis of almost entire calf. DP and PT pulses +2, compartment soft. Objective Labs 11/21/23 15:01 11/21/23 06:50 Labs: Laboratory Results - last 24 hr 11/20/23 11/21/23 11/21/23 22:05 06:50 15:01 WBC 8.7 9.2 RBC 2.88 L 2.68 L Hgb 9.7 L 9.2 L 7.7 L Hct 29.0 L 27.1 L 22.8 L MCV 100.7 H 100.8 H MCH 33.8 34.2 H MCHC 33.5 33.9 RDW 14.2 14.7 Plt Count 264 270 Neut % (Auto) 74.2 60.4 Lymph % (Auto) 16.6 L 29.1 [place] % (Auto) 6.8 7.5 Eos % (Auto) 1.6 L 2.3 Baso % (Auto) 0.8 0.7 Neut # (Auto) 6500 5600 Lymph # (Auto) 1500 2700 [place] # (Auto) 600 700 Eos # (Auto) 100 200 Baso # (Auto) 100 100 Sodium 134 L 133 L Potassium 4.9 5.3 H Chloride 103 103 Carbon Dioxide 27 26 BUN 55 H 56 H Creatinine 3.11 H 3.24 H Estimated GFR 15 L 14 L BUN/Creatinine Ratio 17.7 17.3 Glucose 101 95 Calcium 9.8 9.5 Total Bilirubin 0.4 AST TNP ALT 68 H Alkaline Phosphatase 112 Total Protein 6.9 Albumin 3.9 Globulin 3.0 Albumin/Globulin Ratio 1.3 PFSH Medical History (Updated 11/21/23 @ 01:06 by Surinder Molina MD) Depression with anxiety Renovascular hypertension Chronic low back pain Anemia, chronic renal failure Hyperlipidemia S/p nephrectomy Anxiety Hypertension SBO (small bowel obstruction) History of renal cell cancer 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 - continue to trend h/h - continues on doxycycline over concerns for possible infection by ER provider, low threshold to discontinue. (2) Acute blood loss anemia (ABLA): - Hg down to 7.7, goal >7 (4) Renovascular hypertension: - continue home furosemide (5) Depression with anxiety: - continue home medications (6) ESRD (end stage renal disease) on dialysis: HD on Sat and Sat No recent changes, potassium is creeping up. Maintains urinary output with TID furosemide Will need to look for transfer to outside facility given no dialysis access at [facility] if her stay continues to be prolonged. Dispo: hopeful to discharge home once bleeding stops and h/h stabilizes. Will need to transfer if bleeding continues due to her ESRD on HD status and lack of dialysis capability at [facility]. Code: Full
--- NOTE | 2023-11-21 15:52 | PT.IIE ---
Current Diagnoses Acute posthemorrhagic anemia (11/20/23) Anemia in chronic kidney disease (11/20/23) Other specified anxiety disorders (11/20/23) Renovascular hypertension (11/20/23) Chronic kidney disease, stage 5 (11/20/23) End stage renal disease (11/20/23) Contusion of left lower leg, initial encounter (11/20/23) Dependence on renal dialysis (11/20/23) Surgical History (Last Reviewed 06/05/22 @ 04:02 by Marce Post DO) H/O carpal tunnel repair H/O hernia repair S/P DENIS-BSO S/P tonsillectomy and adenoidectomy Medical History (Last Updated 11/21/23 @ 01:06 by Surinder Molina MD) Acute renal failure on dialysis Anemia, chronic renal failure Anxiety Chronic low back pain 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 Chronic osteomyelitis of left ankle (12/21/15) Depression with anxiety ESRD (end stage renal disease) on dialysis History of renal cell cancer Hyperlipidemia Hypertension Intestinal obstruction (08/03/15) Renovascular hypertension S/p nephrectomy SBO (small bowel obstruction) Small intestine obstruction Physical Therapy Inpatient Evaluation/Re-Eval M2 PT-IP Current Condition Start: 11/21/23 15:29 Freq: NEEDED Status: Active Protocol: Document 11/21/23 15:30 MB (Rec: 11/21/23 15:52 MB [id number]) Physical Therapy Current Condition Current Condition Evaluation Date 11/21/23 Treatment Diagnosis Left LE hematoma M3 PT-IP Subjective Start: 11/21/23 15:29 Freq: NEEDED Status: Active Protocol: Document 11/21/23 15:30 MB (Rec: 11/21/23 15:52 MB [id number]) Subjective Physical Therapy Visit Type Type Initial Evaluation Visit Start Time 15:30 Visit Stop Time 15:45 Total Visit Minutes 15 Number of COMPLEX CARE NURSE Visits 0 Physical Therapy Visit Comments Patient Comments I'm doing pretty good! Therapy Pain Assessment Pain When Pain Assessed At Rest Pain Present Pain Present Pain Reported Location Left Lower Leg Intensity 2 Scale Used Messina-Oneal (Faces) Pain Management Techniques Re-positioning,Timing of Activity with Medications M4 PT-IP Mobility and Gait Start: 11/21/23 15:29 Freq: NEEDED Status: Active Protocol: Document 11/21/23 15:30 MB (Rec: 11/21/23 15:52 MB [id number]) PT-Bed Mobility Assessment Supine to Sit Supine to Sit Independent Sit to Supine Sit to Supine Independent Scooting Scooting to Edge of Bed Independent Scooting Up and Down in Bed Independent PT-Transfer Assessment Sit to and From Stand Sit to and from Stand Independent,Standby Assistance Equipment Transfer Assistive Device Gait Belt,Front Wheeled Walker Orthotic/Prosthetic Devices or Brace: No Transfer Ability Level of Assist Independent,Standby Assistance Comments Mobility Comments Pt mobilizes well, at end of treatment, nsg arrives to state that H&H just came in and HGB is a little over 7 and so PT makes sure to keep SBA with pt Gait Assessment Gait Gait Assistance Required: Independent,Standby Assistance Distance (Feet) 100 Able to Maintain Weight Bearing Status Yes During Gait Assistive Devices Assistive Device Gait Belt,Front Wheeled Walker Orthotic/Prosthetic Devices or Brace: No Gait Deviations General Gait Pattern Decreased Stride Length, Decreased Feet Clearance,Step- to Gait Factors Limiting Gait Function Factors Limiting Gait Function Limited Range of Motion,Pain Comments Gait Comments Pt gait trains with mild favoring of LLE, step-to gait, good magdalena and use of RW: 100'x2. At end of second gait, nsg arrives to state that H&H has just come back and pt HGB is a little over 7 and so SBA con't by PT Stair Climbing Assessment Evaluation Level of Assist On Stairs Standby Assistance,1 Person Assistance Devices Stair Climbing Assistive Devices Right Railing Technique/Endurance Stair Climbing Direction Ascend and Descend Stair Climbing Technique Step to Step Number of Steps Climbed 3 Query Text: Stair Climbing Set # Repetitions (reps) 2 Comments Stair Climbing Comments Pt requires cues for step-to gait with both hands on right rail and ascend first with right foot and descend first with left foot. Then, pt can perform well. Initially, she is somewhat impulsive and tends to try step over step PT-Balance Assessment Sitting Balance and Reactions Static Sitting Balance Ability Good Dynamic Sitting Balance Ability Good Standing Balance and Reactions Static Standing Balance Ability Good Dynamic Standing Balance Ability Good Device Used RW M7 PT-IP Assessment and Plan Start: 11/21/23 15:29 Freq: NEEDED Status: Active Protocol: Document 11/21/23 15:30 MB (Rec: 11/21/23 15:52 MB [id number]) PT Summary Assessment and Plan Potential Rehabilitation Potential Good Status of Condition at Evaluation Evolving Summary Impairments Pain,ROM,Strength Progress Towards Goals Safe For Discharge Assessment Summary Pt is a pleasant 83 y/o female presenting with left leg hematoma. Nsg approaches PT to ask for assessment and nsg and therapist know that H&H is pending. Last HGB was over 9. Pt is mildly peaked in coloring in bed and states she feels well enough for gait and steps. She is SBA with RW only d/t nsg arriving at end of gait to say that HGB came back and is a little over 7. Ed pt in safe step management, benefits of life alert button and/or keeping her cell phone on her and having her niece check in on her when she goes home. No further acute PT needs. Frequency of Treatment Frequency Of Treatment Discharge Weight Bearing Status Weight Bearing Status Weight Bear as Tolerated Recommendations To Nursing Amount of Assist Needed Standby Assistance,1 Person Assist Discharge Recommendations PT Discharge Recommendations Home with Assistance Transportation Needs at Discharge Private Vehicle
[2023-11-21 16:30] VITALS: BP 132/47
[2023-11-21] MEDS: SODIUM CHLORIDE 0.9% IV (16:59)
[2023-11-21] MEDS: DESMOPRESSIN IV (16:59)
--- NOTE | 2023-11-21 19:00 | PC.NURSE ---
dressing changed, old dressing was saturated.
[2023-11-21 21:25] LABS: Hemoglobin 7.4 g/dL (12.0-16.0)
[2023-11-21] MEDS: diazePAM 5 MG TABLET 30 MG PO (22:15)
--- NOTE | 2023-11-21 23:19 | PC.NURSE ---
Notified hospitalist, Dr. Carlin of H&H result of 7.4/ 22.0. Labs ordered.
[2023-11-22 00:48] VITALS: BP 118/40
[2023-11-22 00:53] VITALS: BP 118/40; PULSE 66; RESP 16; TEMP 36.7; O2SAT 96
[2023-11-22 03:36] LABS: Hematocrit 21.3 % (36-46); Hemoglobin 7.2 g/dL (12.0-16.0)
[2023-11-22 03:49] VITALS: BP 119/44; PULSE 68; RESP 16; TEMP 36.6; O2SAT 94
[2023-11-22 04:03] LABS: Alanine Aminotransferase 48 IU/L (<35); Albumin 3.2 g/dL (3.5-5.0); Albumin Globulin Ratio 1.2 (1.0-2.8); Alkaline Phosphatase 94 U/L (38-126); Bilirubin Total 0.4 mg/dL (0.2-1.3); Blood Urea Nitrogen 66 mg/dL (7-17); Calcium 9.2 mg/dL (8.4-10.2); Carbon Dioxide 24 mmol/L (22-32); Chloride 98 mmol/L (98-107); Estimated Glomerular Filt Rate 12 mL/min (>60); Globulin 2.7 g/dL (1.7-4.1); Glucose 80 mg/dL (80-110); HEMOLYSIS < 15 (0-50); Potassium 4.5 mmol/L (3.4-5.1); Sodium 129 mmol/L (137-145); Total Protein 5.9 g/dL (6.3-8.2)
[2023-11-22] MEDS: OXYCODONE/ACETAMINOPHEN 5/325 TABLET 1 TAB PO (06:09)
[2023-11-22 07:00] VITALS: BP 98/62; PULSE 69; RESP 16; TEMP 36.4; O2SAT 95
[2023-11-22] MEDS: DOXYCYCLINE HYCLATE 100 MG TABLET PO (08:27)
[2023-11-22] MEDS: FUROSEMIDE 40 MG TABLET PO (08:27)
[2023-11-22] MEDS: CITALOPRAM 10 MG TABLET 60 MG PO (08:27)
[2023-11-22] MEDS: LACTOBACILLUS ACIDOPHILUS TABLET 1 EACH PO (08:28)
[2023-11-22] MEDS: MULTIVITAMIN 1 TABLET 1 TAB PO (08:28)
[2023-11-22] MEDS: MORPHINE 2 MG/ML INJ IV (08:32)
[2023-11-22 10:00] LABS: Hematocrit 21.3 % (36-46); Hemoglobin 7.3 g/dL (12.0-16.0); Mean Corpuscular HGB Conc 34.4 % (30-36); Mean Corpuscular Hemoglobin 34.5 PG (26-34); Mean Corpuscular Volume 100.6 fL (80-100); Platelet Count 224 X10^3/uL (150-400); Red Blood Cell Count 2.12 X10^6/uL (4.0-5.2); Red Cell Distribution Width 14.2 % (11.6-14.8); White Blood Cell Count 8.4 X10^3/uL (4.5-11.0)
--- NOTE | 2023-11-22 10:28 | PC.NURSE ---
Day shift: Dressing changed per MD orders. Dr Chow has seen the wound. Tolerated change well.
--- NOTE | 2023-11-22 12:17 | PC.NURSE ---
Day shift: Paperwork signed and all questions answered. Went over dressing changes and gave Pt enough supplies for 3 to 6 days of changes. Has all personal belongings. Left unit via WC at approx 1205. Friend is driving Pt home. Pt lives here in [place]. New script sent electronic to Pt's pharmacy.
--- NOTE | 2023-11-22 13:52 | CM.DPNOTE ---
DC Note According to Dr Chow, patient receives dialysis x3 weekly. Patient discharged today, dialysis scheduled for tomorrow. Patient indp and active, at baseline upon discharge, family vs friends to transport home. Close outpatient follow up recommended. No needs identified from this CM team. URI
[2023-11-22 14:51] LABS: HEMOLYSIS 21 (0-50)
[2023-11-22 14:52] LABS: Aspartate Aminotransferase 65 IU/L (14-36)
[2023-11-22 15:27] LABS: Aspartate Aminotransferase 39 IU/L (14-36)
--- NOTE | 2023-11-22 15:36 | P.DS_ITS ---
History of Present Illness History of Present Illness Date Patient Seen: 11/22/23 Time Patient Seen: 15:37 Chief complaint: GLF- L leg hematoma ruptured Narrative: 83 y/o had accidental fall earlier today with LLE injury. Seen in the ED with hematoma and discharged home. At home hematome started to bleed and she came again to the ED. In the meantime, she dropped HH few points. Her fall was accidental. She had another GLF in June last year. On admission to ED hematoma was oozing but then bleeding stopped. Discharge Providers Provider Date of admission: 11/22/23 09:29 Discharge Date: 11/22/23 Primary care physician: Rashel Ríos MD Consults: 11/21/23 13:55 Consult to Physical Therapy Evaluate & Treat Comment: Physician Instructions: Evaluate and Treat Discharge provider: Nikos Chow DO Summary Hospital Course Discharge Diagnosis: (1) Traumatic hematoma of left lower leg: (2) Acute blood loss anemia (ABLA): (3) Depression with anxiety: (4) ESRD (end stage renal disease) on dialysis: Hospital Course: This is an 83 year old female with PMH of ESRD on HD, anxiety and depression who presented after a fall with a traumatic hematoma of her left leg. She was admitted for further monitoring by the ER provider and overnight tele- hospitalist. Her h/h continued to decline, and ddAVP was given to help slow her bleeding. The following morning her hg stabilized in the mid 7s. Her leg did not appear to be actively infected. There are two medium sized lacerations of her left leg. Surgery did not reccommend suture due to friable skin and recommended continued dressing changes daily. Antibiotic were not continued on discharge given lack of active infection in her leg. She was given morphine on discharge for additional pain control of her left leg, and continued follow up with PCP is recommended in the next week, along with possible referral to wound care depending on the appearance. Time Spent with Patient Time spent: Greater than 30 minutes Exam Vital Signs (past 8 hours): Oxygen Delivery Method Room Air Oxygen Flow Rate 0 Objective Labs 11/22/23 09:45 11/22/23 03:25 Labs: Laboratory Results - last 24 hr 11/20/23 11/21/23 11/21/23 22:05 15:01 21:14 WBC RBC Hgb 7.7 L 7.4 L Hct 22.8 L 22.0 L MCV MCH MCHC RDW Plt Count Sodium Potassium Chloride Carbon Dioxide BUN Creatinine Estimated GFR BUN/Creatinine Ratio Glucose Calcium Total Bilirubin AST 65 H ALT Alkaline Phosphatase Total Protein Albumin Globulin Albumin/Globulin Ratio Blood Type O Positive Antibody Screen Negative 11/22/23 11/22/23 03:25 09:45 WBC 8.4 RBC 2.12 L Hgb 7.2 L 7.3 L Hct 21.3 L 21.3 L MCV 100.6 H MCH 34.5 H MCHC 34.4 RDW 14.2 Plt Count 224 Sodium 129 L Potassium 4.5 Chloride 98 Carbon Dioxide 24 BUN 66 H Creatinine 3.67 H Estimated GFR 12 L BUN/Creatinine Ratio 18.0 Glucose 80 Calcium 9.2 Total Bilirubin 0.4 AST 39 H ALT 48 H Alkaline Phosphatase 94 Total Protein 5.9 L Albumin 3.2 L Globulin 2.7 Albumin/Globulin Ratio 1.2 Blood Type Antibody Screen [facility] Medical History (Updated 11/21/23 @ 01:06 by Surinder Molina MD) Depression with anxiety Renovascular hypertension Chronic low back pain Anemia, chronic renal failure Hyperlipidemia S/p nephrectomy Anxiety Hypertension SBO (small bowel obstruction) History of renal cell cancer 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 For care, continue current dressing changes, please follow up with PCP to monitor leg laceration and consider wound care. Discharge orders & Medications Prescriptions: New morphine 15 mg tablet 15 - 30 mg PO Q6H PRN (Reason: pain) 7 Days Qty: 30 0RF Continued tetrahydrozoline [Visine] 15 ML drops 1 gtt OP PRN PRN (Reason: Dry Eyes) Qty: 0 magnesium hydroxide [Milk Of Magnesia Concentrated] 2,400 MG/10 ML suspension 30 ml PO DAILY PRN (Reason: Constipation) Qty: 0 citalopram 20 mg tablet 60 mg PO DAILY Qty: 270 3RF Patient Comments: Takes 20 mg. tabs X 3 diazepam [Valium] 10 mg tablet 30 mg PO BEDTIME Qty: 90 0RF zinc 50 mg tablet 50 mg PO DAILY diphenhydramine HCl [Benadryl] 25 mg Capsule 25 mg PO Q4-6H PRN (Reason: Allergic Symptoms) Patient Comments: Takes on dialysis days Probiotic 10 billion cell Capsule 1 cap PO DAILY multivitamin [Daily-Julee] Tablet 1 tab PO DAILY omega 5-nks-doj-fish oil [Fish Oil] 1,000 mg (120 mg-180 mg) Capsule 4,000 mg PO DAILY oxycodone-acetaminophen 5-325 mg tablet 1 tab PO BID PRN (Reason: pain) furosemide [Lasix] 40 mg tablet 40 mg PO TID Patient Comments: Pt. states takes tabs X 3 together daily on non-dialysis days only. Adult Low Dose Aspirin 81 mg tablet 1 tab PO Follow up/Referrals: Rashel Ríos MD [Primary Care Provider] - Diet/Activity/Treatments Diet: Diet as Tolerated and Low-protein/Renal Activity: As tolerated, no restrictions Visit Report/Discharge Packet Instructions: Anemia, How to Prevent Falls Stand Alone Forms: Patient Portal/API, Stroke Signs & Symptoms Discharge Data Primary Care Provider: Rashel Ríos
== END 2023-11-22 12:19 | disposition home or self-care (01) | DRG 604 ==
LOC: ED 22:34 → AC 22:58
PROVIDERS: Internal Medicine; Admitting Provider Internal Medicine; Emergency Provider Emergency Medicine; PCP Family Medicine; Visit Provider Internal Medicine
DX: S80.12XA Contusion of left lower leg, initial encounter (principal); N18.6 End stage renal disease; D62 Acute posthemorrhagic anemia; I12.0 Hypertensive chronic kidney disease with stage 5 chronic kidney disease or end stage renal disease; F17.200 Nicotine dependence, unspecified, uncomplicated; D63.1 Anemia in chronic kidney disease; F32.A Depression, unspecified; F41.9 Anxiety disorder, unspecified; W18.30XA Fall on same level, unspecified, initial encounter; Z99.2 Dependence on renal dialysis; M81.0 Age-related osteoporosis without current pathological fracture; M85.88 Other specified disorders of bone density and structure, other site
CPT/HCPCS: 36415; 73590; 73610; 77080; 80048; 80053; 85014; 85018; 85025; 85027; 86850; 86900; 86901; 93005; 97161; 99283; 99284; G0378; J2270

== ENCOUNTER 2023-11-24 21:02 | Inpatient (IN) | payer MEDICARE, SELFPAY ==
[2023-11-24] VITALS (8 sets, daily range): BP systolic 81–135; BP diastolic 49–61; PULSE 71–80; RESP 18–21; TEMP 36.8; O2SAT 90–99; BMI 18.5
[2023-11-24 22:03] LABS: Add Manual Diff / Slide Review NO; Basophils Absolute Auto 0 /uL (0-100); Basophils Percent Auto 0.4 % (0-2); Eosinophils Absolute Auto 100 /uL (0-450); Eosinophils Percent Auto 1.3 % (2-4); Hematocrit 21.5 % (36-46); Hemoglobin 7.4 g/dL (12.0-16.0); Lymphocytes Absolute Auto 800 /uL (1100-4500); Lymphocytes Percent Auto 10.2 % (25-40); Mean Corpuscular HGB Conc 34.6 % (30-36); Mean Corpuscular Hemoglobin 34.7 PG (26-34); Mean Corpuscular Volume 100.3 fL (80-100); Monocytes Absolute Auto 500 /uL (0-900); Neutrophils Absolute Auto 6800 /uL (1500-7000); Neutrophils Percent Auto 82.1 % (50-75); Platelet Count 300 X10^3/uL (150-400); Red Blood Cell Count 2.14 X10^6/uL (4.0-5.2); Red Cell Distribution Width 14.1 % (11.6-14.8); White Blood Cell Count 8.3 X10^3/uL (4.5-11.0)
[2023-11-24 22:12] LABS: Alanine Aminotransferase 120 IU/L (<35); Albumin Globulin Ratio 1.2 (1.0-2.8); Alkaline Phosphatase 154 U/L (38-126); Aspartate Aminotransferase 92 IU/L (14-36); BUN Creatinine Ratio 23.7 (6-22); Bilirubin Total 0.4 mg/dL (0.2-1.3); Calcium 9.1 mg/dL (8.4-10.2); Carbon Dioxide 34 mmol/L (22-32); Chloride 87 mmol/L (98-107); Estimated Glomerular Filt Rate 9 mL/min (>60); Globulin 3.3 g/dL (1.7-4.1); Glucose 93 mg/dL (80-110); HEMOLYSIS < 15 (0-50); Potassium 5.1 mmol/L (3.4-5.1); Sodium 128 mmol/L (137-145); Total Protein 7.3 g/dL (6.3-8.2)
[2023-11-24 22:22] LABS: Blood Urea Nitrogen 113 mg/dL (7-17)
--- NOTE | 2023-11-24 22:31 | PC.NURSE ---
Addendum entered by Carmen Terry R.N. 11/24/23 22:32: . Original Note: Wound pictures:
--- NOTE | 2023-11-24 22:34 | PC.NURSE ---
leg circumference leg marked for measuring. Leg cicumference at widest area 33.2cm
--- NOTE | 2023-11-24 22:53 | ED_ITS ---
HPI - Extremity Injury (Lower) General Chief Complaint: Extremity Injury, Lower Stated Complaint: LEG WOUNDS Time Seen by Provider: 11/24/23 21:38 Source: patient and family Mode of arrival: Wheelchair History of Present Illness HPI Narrative: 83-year-old woman on chronic dialysis on Tuesdays and Saturdays after renal cell cancer and having a nephrectomy. She does continue to make urine and did not make it to her Saturday dialysis. Additional problems include depression and anxiety and on November 20 she stumbled and suffered a large hematoma to the left calf. A couple of hours later the calf skin essentially ruptured and she had a significant amount of bleeding. She was admitted to the hospital for further observation of the wound and monitoring of her H and H to make sure there was not continued ongoing bleeding. She was discharged home from the hospital on the and her daughter brings her back today with concerns that the wound is bleeding and she is increasingly weak. She does not note fevers, cough, chills. Mild nausea no vomiting. No headaches Related Data Home Medications Medication Instructions Recorded Confirmed tetrahydrozoline 0.05 % eye drops 1 gtt OP PRN PRN Dry Eyes ##0 12/14/11 11/20/23 (Visine) magnesium hydroxide 2,400 mg/10 mL 30 ml PO DAILY PRN Constipation ##0 02/03/18 11/20/23 oral suspension (Milk Of Magnesia Concentrated) diphenhydramine HCl 25 mg capsule 25 mg PO Q4-6H PRN Allergic 06/05/18 11/20/23 (Benadryl) Symptoms Lactobacillus acidophilus 10 1 cap PO DAILY 08/21/18 11/20/23 billion cell capsule (Probiotic) multivitamin (Daily-Julee tablet) 1 tab PO DAILY 08/21/18 11/20/23 omega 6-hff-wva-fish oil 1,000 mg 4,000 mg PO DAILY 01/17/19 11/20/23 (120 mg-180 mg) capsule (Fish Oil) zinc 50 mg tablet 50 mg PO DAILY 02/11/19 11/20/23 furosemide 40 mg tablet (Lasix) 40 mg PO TID 11/20/23 11/20/23 oxycodone-acetaminophen 5 mg-325 1 tab PO BID PRN pain 11/20/23 11/20/23 mg tablet Adult Low Dose Aspirin 1 tab PO 11/21/23 Previous Rx's Medication Instructions Recorded citalopram 20 mg tablet 60 mg (3 x 20 mg) PO DAILY #270 04/08/23 tabs diazepam 10 mg tablet (Valium) 30 mg (3 x 10 mg) PO BEDTIME #90 09/13/23 tabs morphine 15 mg immediate release 15 - 30 mg (1 - 2 x 15 mg) PO Q6H 11/22/23 tablet PRN pain 7 days #30 tabs Allergies Allergy/AdvReac Type Severity Reaction Status Date / Time acetaminophen [From TYLENOL] Allergy Mild LIMIT Verified 09/13/23 09:53 TYLENOL INTAKE, ONE KIDNEY cephalexin [CEPHALEXIN] Allergy Mild RASH Verified 09/13/23 09:53 Penicillins [PENICILLINS] Allergy Mild RASH Verified 09/13/23 09:53 ketorolac [KETOROLAC] Allergy Unknown NO TORADOL Verified 09/13/23 09:53 codeine [CODEINE] AdvReac Mild NAUSEA,VOMI Verified 09/13/23 09:53 TING,HALLUC INATIONS hydrocodone [HYDROCODONE] AdvReac Mild NAUSEA,VOMITING,DIDN'T Verified 09/13/23 09:53 WORK WELL TO CONTROL PAIN prednisone [PREDNISONE] AdvReac Mild SEVERE Verified 09/13/23 09:53 HALLUCINATIONS Review of Systems Review of Systems Narrative: Pertinent positive and negative findings as per HPI Patient History Medical History Depression with anxiety Renovascular hypertension Chronic low back pain Anemia, chronic renal failure Hyperlipidemia S/p nephrectomy Anxiety Hypertension SBO (small bowel obstruction) History of renal cell cancer 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 ESRD (end stage renal disease) on dialysis Chronic osteomyelitis of left ankle (12/21/15) Intestinal obstruction (08/03/15) Small intestine obstruction Acute renal failure on dialysis Surgical History H/O carpal tunnel repair H/O hernia repair S/P DENIS-BSO S/P tonsillectomy and adenoidectomy Social History household members: none Smoking Status: Current every day smoker alcohol intake: current Smoking Status: Current every day smoker tobacco type: cigarettes alcohol intake frequency: holidays/special occasions only Substance Use Type: does not use Exam Initial Vital Signs Initial Vital Signs: Vital Signs Temperature 98.3 F 11/24/23 21:05 Pulse Rate 80 11/24/23 21:05 Respiratory Rate 18 11/24/23 21:05 Blood Pressure 131/60 11/24/23 21:05 Pulse Oximetry 95 11/24/23 21:05 Oxygen Delivery Method Room Air 11/24/23 21:05 General: Frail and weak appearing but in no acute distress. HEENT: Moist mucous membranes, normal sclera with reactive pupils, Neck: No JVD, supple Respiratory: Lungs are clear to auscultation, no wheezing no rales no rhonchi. Full and symmetrical air movement Cardiac: Regular rate and rhythm no murmurs no bruits Abdomen: Soft, nontender, good bowel tones, no flank pain Skin: Warm and dry, no rashes Neurologic: Grossly neurologically intact with no obvious asymmetries or abnormalities Extremities: Left leg has significantly less edema. The bleeding the family is concerned about is simply the large amount of clot that is mobilizing and draining from the wounds on her skin that is split open with the swelling. There is a large bulla almost covering the entire hematoma area estimated at 14 x 6 cm over the direct posterior calf. There is a bit of blood and hematoma breakdown product there but no obvious purulence. The fluid is released and cultured however did not unroof the giant bulla Psych: Cooperative, appropriate insight and affect Course Orders Ordered: ED Orders 11/24/23 21:40 Urinalysis and Microscopic Stat 11/24/23 21:48 Complete Blood Count AUTO DIFF Stat Comprehensive Metabolic Panel Stat Lactate (Lactic Acid) Stat Type and Screen Stat 11/24/23 22:34 Wound Culture and Gram Stain Stat 11/25/23 00:18 Respiratory Panel (Film Array) Stat Citalopram Hydrobromide (Citalopram 10 Mg Tablet) 60 mg PO DAILY MACRINA Diazepam (Diazepam 5 Mg Tablet) 30 mg PO BEDTIME MACRINA Diphenhydramine HCl (Diphenhydramine 25 Mg Tablet) 25 mg PO Q4H PRN PRN Reason: Allergic Symptoms Furosemide (Furosemide 40 Mg Tablet) 120 mg PO DAILY MACRINA Vancomycin HCl (Vancomycin) 1,000 mg in 200 mls @ 130 mls/hr IV NOW MACRINA Last Infusion: 11/25/23 00:41 Dose: Infused Documented By: Admin: 11/24/23 23:09 Dose: 130 mls/hr Documented By: NANCY Morphine Sulfate (Morphine Ir 15 Mg Tablet) 15 mg PO Q4HR PRN PRN Reason: Pain, Severe (7-10) Last Admin: 11/24/23 23:01 Dose: 15 mg Documented By: NANCY Morphine Sulfate (Morphine Ir 15 Mg Tablet) 15 mg PO Q6H PRN PRN Reason: pain Naloxone HCl (Naloxone 0.4 Mg/Ml Vial) 0.2 mg IV Q2MIN PRN PRN Reason: Opiate Reversal (Lactobacillus Acidophilus [ Probiotic] 10 Billion Cell Capsule ) 1 cap PO DAILY [facility] Non-Formulary Medication (Tetrahydrozoline [Visine]) 1 gtt EYE-BOTH PRN PRN PRN Reason: Dry Eyes Discontinued Medications Cefepime HCl 2 gm/ Sodium (Chloride) 100 mls @ 200 mls/hr IV NOW ONE Stop: 11/24/23 22:53 Last Infusion: 11/24/23 23:18 Dose: Infused Documented By: Admin: 11/24/23 22:59 Dose: 200 mls/hr Documented By: NANCY Vancomycin HCl (Vancomycin Per Pharmacy) 1 request MISC NOW ONE Stop: 11/24/23 22:52 Last Admin: 11/25/23 00:41 Dose: Not Given Documented By: NANCY Vital Signs Vital signs: Vital Signs - 8 hr 11/24/23 21:05 11/24/23 21:32 11/24/23 22:00 Temperature 98.3 F Pulse Rate 80 78 72 Respiratory Rate 18 21 19 Blood Pressure 131/60 135/60 113/54 L Pulse Oximetry 95 90 L 99 Oxygen Delivery Method Room Air Nasal Cannula Oxygen Flow Rate 2 11/24/23 22:05 11/24/23 22:05 11/24/23 22:07 Temperature Pulse Rate 72 Respiratory Rate Blood Pressure 81/49 L 113/54 L Pulse Oximetry 98 Oxygen Delivery Method Oxygen Flow Rate 11/24/23 22:07 11/24/23 22:30 11/24/23 22:30 Temperature Pulse Rate 72 79 Respiratory Rate Blood Pressure 125/61 Pulse Oximetry 98 97 Oxygen Delivery Method Oxygen Flow Rate 11/24/23 23:00 11/24/23 23:00 11/24/23 23:30 Temperature Pulse Rate 72 Respiratory Rate Blood Pressure 109/52 L 108/53 L Pulse Oximetry 97 Oxygen Delivery Method Nasal Cannula Nasal Cannula Oxygen Flow Rate 2 1 11/24/23 23:30 11/25/23 00:00 11/25/23 00:00 Temperature Pulse Rate 71 70 Respiratory Rate Blood Pressure 103/51 L Pulse Oximetry 95 93 95 Oxygen Delivery Method Nasal Cannula Oxygen Flow Rate 2 MDM - Extremity Injury (Lower) Lab Data 11/24/23 21:48 11/24/23 21:48 Labs: Lab Results 11/24/23 11/25/23 Range/Units 21:48 00:18 WBC 8.3 (4.5-11.0) X10^3/uL RBC 2.14 L (4.0-5.2) X10^6/uL Hgb 7.4 L (12.0-16.0) g/dL Hct 21.5 L (36-46) % MCV 100.3 H (80-100) fL MCH 34.7 H (26-34) PG MCHC 34.6 (30-36) % RDW 14.1 (11.6-14.8) % Plt Count 300 (150-400) X10^3/uL Neut % (Auto) 82.1 H (50-75) % Lymph % (Auto) 10.2 L (25-40) % Craig % (Auto) 6.0 (3-14) % Eos % (Auto) 1.3 L (2-4) % Baso % (Auto) 0.4 (0-2) % Neut # (Auto) 6800 (9681-0030) /uL Lymph # (Auto) 800 L (4047-5587) /uL Craig # (Auto) 500 (0-900) /uL Eos # (Auto) 100 (0-450) /uL Baso # (Auto) 0 (0-100) /uL Sodium 128 L (137-145) mmol/L Potassium 5.1 (3.4-5.1) mmol/L Chloride 87 L (98-107) mmol/L Carbon Dioxide 34 H (22-32) mmol/L BUN 113 H* (7-17) mg/dL Creatinine 4.76 H (0.52-1.04) mg/dL Estimated GFR 9 L (>60) mL/min BUN/Creatinine Ratio 23.7 H (6-22) Glucose 93 (80-110) mg/dL Lactate 0.8 (0.7-2.1) mmol/L Calcium 9.1 (8.4-10.2) mg/dL Total Bilirubin 0.4 (0.2-1.3) mg/dL AST 92 H (14-36) IU/L ALT 120 H (<35) IU/L Alkaline Phosphatase 154 H D (38-126) U/L Total Protein 7.3 (6.3-8.2) g/dL Albumin 4.0 (3.5-5.0) g/dL Globulin 3.3 (1.7-4.1) g/dL Albumin/Globulin Ratio 1.2 (1.0-2.8) Chlamy pneumoniae PCR Not detected (Not Detect) Adenovirus (PCR) Not detected (Not Detect) B.parapertussis DNA PCR Not detected (Not Detecte) Coronavirus OC43 (PCR) Not detected (Not Detect) Coronavirus HKU1 (PCR) Not detected (Not Detect) Coronavirus 229E (PCR) Not detected (Not Detect) SARS-CoV-2 (PCR) Not detected (Not Detecte) Coronavirus NL63 (PCR) Not detected (Not Detect) Human Metapneumovir PCR Not detected (Not Detect) Influenza Type A (PCR) Not detected (Not Detect) Influenza Type B (PCR) Not detected (Not Detect) M. pneumoniae (PCR) Not detected (Not Detect) Parainfluenza 1 (PCR) Not detected (Not Detect) Parainfluenza 2 (PCR) Not detected (Not Detect) Parainfluenza 3 (PCR) Not detected (Not Detect) Parainfluenza 4 (PCR) Not detected (Not Detect) RSV (PCR) Not detected (Not Detect) Entero/Rhino (PCR) Not detected (Not Detect) Blood Type O Positive Antibody Screen Negative MDM Narrative Medical decision making narrative: CC: Infected wound Complicating co-morbidities: Dialysis patient Data collected from: patient Social determinants of health that may influence the patients condition: Need for dialysis, need for acute and extended wound care Medical records reviewed: Notes from ER visits and hospitalization related to this wound are reviewed Differential considered: Active bleeding, cellulitis, abscess, deep tissue infection Exam documented above, pertinent findings include: 83-year-old woman who appears more fatigued than when initially seen for the hematoma back on the 3rd. She is slightly pale but afebrile. She is no rhonchi or rales. Abdomen is nontender. Wound of the left lower extremity actually looks better with quite a bit of reduction to the overall edema. The underlying hematoma is beginning to mobilize and that is what is draining out, she has not having any active bleeding. There is a large bulla over the posterior calf. Lab Test results independently reviewed as above. Pertinent findings: Chemistries note hyponatremia at 1:28 a.m. which is just slightly lower than her baseline. Potassium is 5.1. Chloride is at 87 bicarb at 33 BUN 113 creatinine at 4.76. Slight increase to AST, ALT and alk-phos CBC shows normal white blood cell count at 8.3 however she does have a significant left shift with 82% neutrophils appreciated., H and H is essentially stable at 7.4 and 21.5 Treatments: The wound is cleaned and redressed. The debris from the bulla over the posterior calf is drained and sent for culture. She is started on cefepime and vancomycin, she has allergies to Keflex, penicillins, Discussion: 83-year-old woman with very large hematoma left calf spontaneous skin rupture, the large hematoma, estimated to be 1500 cc of blood, is beginning to mobilize and drain out of the open skin wounds. There is no active bleeding. She has a very large bulla on the posterior aspect of the calf that at some point will need to be debrided and I am concerned that she is going to need a significant amount of wound care. She is started on antibiotics with significantly noted left shift on her CBC and increasing weakness overall. She has not currently complaining of any pain. Respiratory panel will be added to make sure there isn't a concurrent reason to explain the global weakness. She has not had any increasing drops to her H&H. She may well need discharge to rehab facility for wound care. Please see nursing notes for picture documentation of wounds Care will be reviewed with the hospitalist,Dr Molina Discharge Plan Departure Patient Disposition: Admitted As Inpatient Clinical Impression: Infected hematoma, ABLA (acute blood loss anemia), Hematoma of left lower leg, Visit for wound care Admit Date/Time: 11/25/23 00:22 Admit Provider: Surinder Anders
[2023-11-24] MEDS: CEFEPIME 2 GM in SODIUM CHLORIDE 0.9% 100 ML IV (22:59)
[2023-11-24] MEDS: MORPHINE IR 15 MG TABLET PO (23:01)
[2023-11-24] MEDS: VANCOMYCIN 1,000 MG/200 ML PIGGYBACK 130 MG IV (23:09)
[2023-11-24 23:35] LABS: Lactate (Lactic Acid) 0.8 mmol/L (0.7-2.1)
[2023-11-25] VITALS (12 sets, daily range): BP systolic 103–135; BP diastolic 31–54; PULSE 69–77; RESP 10–18; TEMP 36.6–37.4; O2SAT 85–98; BMI 18.5
[2023-11-25 01:20] LABS: Adenovirus Not Detected (Not Detect); B. parapertussis Not Detected (Not Detecte); Bordetella pertussis Not Detected (Not Detect); Chlamydophila pneumoniae Not Detected (Not Detect); Coronavirus 229E Not Detected (Not Detect); Coronavirus HKU1 Not Detected (Not Detect); Coronavirus NL 63 Not Detected (Not Detect); Coronavirus OC43 Not Detected (Not Detect); Human Metapneumovirus Not Detected (Not Detect); Human Rhinovirus/Enterovirus Not Detected (Not Detect); Influenza A Not Detected (Not Detect); Influenza B Not Detected (Not Detect); Mycoplasma pneumoniae Not Detected (Not Detect); Parainfluenza Virus 1 Not Detected (Not Detect); Parainfluenza Virus 2 Not Detected (Not Detect); Parainfluenza Virus 3 Not Detected (Not Detect); Parainfluenza Virus 4 Not Detected (Not Detect); Respiratory Syncytial Virus Not Detected (Not Detect); SARS- CoV-2 Not Detected (Not Detecte)
--- NOTE | 2023-11-25 01:52 | P.HP_ITS ---
History of Present Illness History of Present Illness Date Patient Seen: 11/25/23 Chief complaint: LEG WOUNDS Narrative: 83 y/o with recent hospitalization (11/20-11/22/2023) for LLE bleeding traumatic hematoma and acute blood loss anemia, presents 2 days after the discharge. Her daughter brought her back today with concerns that the wound is bleeding and she is increasingly weak. She does not note fevers, cough, chills. Mild nausea no vomiting. No headaches. In the ED she had increased neutrophil count but not leukocytosis or fever. ED attending concerned about large blister on the back of the calf and possibly infected hematoma, received vancomycin and cefepime. She is desaturating on room air, at rest, and was placed on 1 L of oxygen. Sleepy, drowsy, after ED pain management. 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 ESRD (end stage renal disease) on dialysis Chronic osteomyelitis of left ankle (12/21/15) Intestinal obstruction (08/03/15) Small intestine obstruction Acute renal failure on dialysis Surgical History H/O carpal tunnel repair H/O hernia repair S/P DENIS-BSO S/P tonsillectomy and adenoidectomy Social History household members: none Smoking Status: Current every day smoker Meds Home Medications and Allergies Home Medications Medication Instructions Recorded Confirmed Type tetrahydrozoline 0.05 % eye drops 1 gtt OP PRN PRN Dry Eyes ##0 12/14/11 11/20/23 History (Visine) magnesium hydroxide 2,400 mg/10 mL 30 ml PO DAILY PRN Constipation ##0 02/03/18 11/20/23 History oral suspension (Milk Of Magnesia Concentrated) diphenhydramine HCl 25 mg capsule 25 mg PO Q4-6H PRN Allergic 06/05/18 11/20/23 History (Benadryl) Symptoms Lactobacillus acidophilus 10 1 cap PO DAILY 08/21/18 11/20/23 History billion cell capsule (Probiotic) multivitamin (Daily-Julee tablet) 1 tab PO DAILY 08/21/18 11/20/23 History omega 2-rpb-boh-fish oil 1,000 mg 4,000 mg PO DAILY 01/17/19 11/20/23 History (120 mg-180 mg) capsule (Fish Oil) zinc 50 mg tablet 50 mg PO DAILY 02/11/19 11/20/23 History citalopram 20 mg tablet 60 mg (3 x 20 mg) PO DAILY #270 04/08/23 11/20/23 Rx tabs diazepam 10 mg tablet (Valium) 30 mg (3 x 10 mg) PO BEDTIME #90 09/13/23 11/20/23 Rx tabs furosemide 40 mg tablet (Lasix) 40 mg PO TID 11/20/23 11/20/23 History oxycodone-acetaminophen 5 mg-325 1 tab PO BID PRN pain 11/20/23 11/20/23 History mg tablet Adult Low Dose Aspirin 1 tab PO 11/21/23 History morphine 15 mg immediate release 15 - 30 mg (1 - 2 x 15 mg) PO Q6H 11/22/23 Rx tablet PRN pain 7 days #30 tabs Allergies Allergy/AdvReac Type Severity Reaction Status Date / Time acetaminophen [From TYLENOL] Allergy Mild LIMIT Verified 09/13/23 09:53 TYLENOL INTAKE, ONE KIDNEY cephalexin [CEPHALEXIN] Allergy Mild RASH Verified 09/13/23 09:53 Penicillins [PENICILLINS] Allergy Mild RASH Verified 09/13/23 09:53 ketorolac [KETOROLAC] Allergy Unknown NO TORADOL Verified 09/13/23 09:53 codeine [CODEINE] AdvReac Mild NAUSEA,VOMI Verified 09/13/23 09:53 TING,HALLUC INATIONS hydrocodone [HYDROCODONE] AdvReac Mild NAUSEA,VOMITING,DIDN'T Verified 09/13/23 09:53 WORK WELL TO CONTROL PAIN prednisone [PREDNISONE] AdvReac Mild SEVERE Verified 09/13/23 09:53 HALLUCINATIONS Review of Systems Constitutional Comments: w/o fever or chills ongoing generalized weakness, worse in the last 1-2 days as per the daughter Cardiovascular Comments: w/o chest pain Respiratory Comments: short of breath Musculoskeletal Comments: Oozing LLE hematoma, pain Psychiatric Comments: anxiety, insomnia Exam Vital Signs (past 8 hours): - 11/24/23 21:05 11/24/23 21:32 11/24/23 22:00 Temperature 98.3 F Pulse Rate 80 78 72 Respiratory Rate 18 21 19 Blood Pressure 131/60 135/60 113/54 L Pulse Oximetry 95 90 L 99 Oxygen Delivery Method Room Air Nasal Cannula Oxygen Flow Rate 2 11/24/23 22:05 11/24/23 22:05 11/24/23 22:07 Temperature Pulse Rate 72 Respiratory Rate Blood Pressure 81/49 L 113/54 L Pulse Oximetry 98 Oxygen Delivery Method Oxygen Flow Rate 11/24/23 22:07 11/24/23 22:30 11/24/23 22:30 Temperature Pulse Rate 72 79 Respiratory Rate Blood Pressure 125/61 Pulse Oximetry 98 97 Oxygen Delivery Method Oxygen Flow Rate 11/24/23 23:00 11/24/23 23:00 11/24/23 23:30 Temperature Pulse Rate 72 Respiratory Rate Blood Pressure 109/52 L 108/53 L Pulse Oximetry 97 Oxygen Delivery Method Nasal Cannula Nasal Cannula Oxygen Flow Rate 2 1 11/24/23 23:30 11/25/23 00:00 11/25/23 00:00 Temperature Pulse Rate 71 70 Respiratory Rate Blood Pressure 103/51 L Pulse Oximetry 95 93 95 Oxygen Delivery Method Nasal Cannula Oxygen Flow Rate 2 11/25/23 00:30 11/25/23 00:30 11/25/23 01:29 Temperature 98.7 F Pulse Rate 71 75 Respiratory Rate 18 10 L Blood Pressure 107/54 L 103/31 L Pulse Oximetry 93 85 L Oxygen Delivery Method Oxygen Flow Rate Oxygen Delivery Method Nasal Cannula Oxygen Flow Rate 2 Const Other: laying in bed in no distress, sleepy Resp Other: decreased respiratory effort Cardio Other: RRR Skin Other: large LLE traumatic hematoma Objective Labs 11/24/23 21:48 11/24/23 21:48 Labs: Laboratory Results - last 24 hr 11/24/23 11/25/23 21:48 00:18 WBC 8.3 RBC 2.14 L Hgb 7.4 L Hct 21.5 L MCV 100.3 H MCH 34.7 H MCHC 34.6 RDW 14.1 Plt Count 300 Neut % (Auto) 82.1 H Lymph % (Auto) 10.2 L Cooper % (Auto) 6.0 Eos % (Auto) 1.3 L Baso % (Auto) 0.4 Neut # (Auto) 6800 Lymph # (Auto) 800 L Cooper # (Auto) 500 Eos # (Auto) 100 Baso # (Auto) 0 Sodium 128 L Potassium 5.1 Chloride 87 L Carbon Dioxide 34 H BUN 113 H* Creatinine 4.76 H Estimated GFR 9 L BUN/Creatinine Ratio 23.7 H Glucose 93 Lactate 0.8 Calcium 9.1 Total Bilirubin 0.4 AST 92 H ALT 120 H Alkaline Phosphatase 154 H D Total Protein 7.3 Albumin 4.0 Globulin 3.3 Albumin/Globulin Ratio 1.2 Chlamy pneumoniae PCR Not detected Adenovirus (PCR) Not detected B.parapertussis DNA PCR Not detected Coronavirus OC43 (PCR) Not detected Coronavirus HKU1 (PCR) Not detected Coronavirus 229E (PCR) Not detected SARS-CoV-2 (PCR) Not detected Coronavirus NL63 (PCR) Not detected Human Metapneumovir PCR Not detected Influenza Type A (PCR) Not detected Influenza Type B (PCR) Not detected M. pneumoniae (PCR) Not detected Parainfluenza 1 (PCR) Not detected Parainfluenza 2 (PCR) Not detected Parainfluenza 3 (PCR) Not detected Parainfluenza 4 (PCR) Not detected RSV (PCR) Not detected Entero/Rhino (PCR) Not detected Blood Type O Positive Antibody Screen Negative Assessment & Plan Assessment and plan (1) Hematoma of left lower leg: Status: Acute Plan: - concern for infection - given dose of cefepime and vancomycin in ED - WC and BCs pending - not septic, w/o fever or leukocytosis, mild left shift only - procalcitonin pending - reassess further type and route of abx in am - wound care (2) ABLA (acute blood loss anemia): Status: Acute Plan: same level as on discharge 2 days ago - still oozing, monitored CBC (3) ESRD (end stage renal disease) on dialysis: Status: Acute Plan: - HD on Tue / Sat - missed HD yesterday - BMP in am - not hyperkalemic, makes urine, likely able to wait Tue for HD (4) Depression with anxiety: Status: Acute Plan: SSRI, Valium (5) Anemia, chronic renal failure: Qualifiers: Chronic kidney disease stage: stage 5 Qualified Code(s): N18.5 - Chronic kidney disease, stage 5; D63.1 - Anemia in chronic kidney disease Status: Acute (6) Renovascular hypertension: Status: Acute Plan: - still makes urine - Lasix 120 mg daily
--- NOTE | 2023-11-25 02:07 | PC.NURSE ---
rec'd pt from the ED drowsy but oriented and responsive; able to provide pmh; spoke w/ hospitalist via monitor; dressing to left leg CDI; bed low, call light in reach, pt oriented to room and light; o2 sat decreased to 79% when pt fell asleep; placed on o2/1.5l/nc; o2 sat 95%
[2023-11-25 06:02] LABS: Procalcitonin 0.86 ng/mL (<0.5)
[2023-11-25] MEDS: CITALOPRAM 10 MG TABLET 60 MG PO (09:14)
[2023-11-25] MEDS: FUROSEMIDE 40 MG TABLET 120 MG PO (09:14)
[2023-11-25 09:38] LABS: Appearance Urine UA CLEAR; Bilirubin Urine UA NEGATIVE (NEGATIVE); Color Urine UA YELLOW; Glucose Urine UA NEGATIVE (Negative); Ketones Urine UA NEGATIVE (NEGATIVE); Leukocyte Esterase Urine UA 3+ (NEGATIVE); Nitrite Urine UA NEGATIVE (Negative); Occult Blood Urine UA TRACE-INTACT (Negative); Protein Urine UA NEGATIVE (Negative); Urobilinogen Urine UA 0.2 E.U./dL (0.2)
[2023-11-25 09:43] LABS: RBC Urine 1-5/HPF (0-5/HPF); WBC Urine 10-30/HPF (0-5/HPF)
[2023-11-25 09:44] LABS: Bacteria Urine Moderate (10-30); Culture Indicated Urine Specimen Cultured; Squamous Epithelial Cell Urine 5-10 /HPF (0-5/HPF)
[2023-11-25 10:45] LABS: Basophils Absolute Auto 0 /uL (0-100); Basophils Percent Auto 0.4 % (0-2); Eosinophils Absolute Auto 100 /uL (0-450); Eosinophils Percent Auto 1.1 % (2-4); Lymphocytes Absolute Auto 700 /uL (1100-4500); Lymphocytes Percent Auto 7.7 % (25-40); Mean Corpuscular HGB Conc 33.8 % (30-36); Mean Corpuscular Hemoglobin 34.6 PG (26-34); Mean Corpuscular Volume 102.2 fL (80-100); Monocytes Absolute Auto 700 /uL (0-900); Monocytes Percent Auto 6.9 % (3-14); Neutrophils Absolute Auto 7900 /uL (1500-7000); Neutrophils Percent Auto 83.9 % (50-75); Platelet Count 272 X10^3/uL (150-400); Red Blood Cell Count 1.87 X10^6/uL (4.0-5.2); Red Cell Distribution Width 14.4 % (11.6-14.8); White Blood Cell Count 9.4 X10^3/uL (4.5-11.0)
[2023-11-25 10:55] LABS: Alanine Aminotransferase 93 IU/L (<35); Albumin 3.5 g/dL (3.5-5.0); Albumin Globulin Ratio 1.2 (1.0-2.8); Alkaline Phosphatase 121 U/L (38-126); Aspartate Aminotransferase 69 IU/L (14-36); Bilirubin Total 0.4 mg/dL (0.2-1.3); Calcium 8.5 mg/dL (8.4-10.2); Carbon Dioxide 25 mmol/L (22-32); Chloride 90 mmol/L (98-107); Estimated Glomerular Filt Rate 9 mL/min (>60); Globulin 2.9 g/dL (1.7-4.1); Glucose 64 mg/dL (80-110); HEMOLYSIS < 15 (0-50); Potassium 4.8 mmol/L (3.4-5.1); Sodium 126 mmol/L (137-145); Total Protein 6.4 g/dL (6.3-8.2)
[2023-11-25 10:56] LABS: Add Manual Diff / Slide Review SLIDE REVIEW; Hematocrit 19.1 % (36-46); Hemoglobin 6.5 g/dL (12.0-16.0)
--- NOTE | 2023-11-25 10:59 | DI.CT.S_ITS ---
PROCEDURE: CT LE LT W CON INDICATIONS: left calf hematoma TECHNIQUE: Noncontrast 3-mm axial sections acquired from the distal tibial shaft to the talar dome, with coronal and sagittal reformats.. COMPARISON: [facility], CR, XR TIBIA FIBULA LT 2V, 11/20/2023, 15:30. FINDINGS: Image quality: Excellent. Bones: No fracture or osseous lesion. Soft tissues: Subcutaneous high density focus measuring 80 mm anteroposterior by 180 mm craniocaudal within the subcutaneous fat of the lateral calf is present. IMPRESSION: 1. No fracture. 2. Subcutaneous hematoma. Dictated by: Titi Vanegas M.D. on 11/25/2023 at 11:45 Approved by: Titi Vanegas M.D. on 11/25/2023 at 11:55
[2023-11-25 11:03] LABS: BUN Creatinine Ratio 26.8 (6-22)
[2023-11-25 11:05] LABS: Blood Urea Nitrogen 127 mg/dL (7-17)
[2023-11-25 11:43] LABS: Anisocytosis 1+
--- NOTE | 2023-11-25 12:21 | CM.DANOTE ---
Patient is an 83 yo female READMIT on 11/25/23 for ongoing leg hematoma with wound and possible infection. PCP: Rashel Ríos Payer: MCR/AARP Per MD, pt has dialysis at baseline and missed her dialysis yesterday from feeling so ill and has her next dialysis tomorrow 11/26/23. Pt likely will not be medically stable to d/c today for dialysis tomorrow and therefore will likely need hospital transfer to [facility] for dialysis needs. Wound Consult order also placed for pt's leg hematoma. SW called [facility] and updated on Wound Consult order and faxed facesheet and H&P to review and they confirmed that pt will be seen bedside some time later today. Met w/patient, introduced self and role. Patient lives alone in [facility] in all aspects, drives and has family Patricia who lives about 4 min away from pt. Patient's DPOA is esperanza Brooks P [phone] who lives in [place] and she has been bedside. Pt confirms that her hematoma, pain, and weakness increased after discharging home and had at least 2 GLFs yesterday. Pt states she typically does not use DME for ambulation but states the past couple days she has needed her FWW. Pt denies any hx of HH but confirms that she did have one SNF stay when she first started dialysis and went to [facility] about 10 yrs ago but no need for SNF since that time. Pt is agreeable to HH and after HH Choice list pt has no preference and therefore [facility] HH referral made based on Vendor Calendar. No F2F completed yet as SW informed [facility] that pt might need hospital transfer and they might need to follow pt there. Pt confirms she has dialysis 2x week at the [facility] and has done dialysis for 9 years. Plan: SW to follow closely for Wound Care Consult for pt's leg wounds and [facility] referral made and likely need for hospital transfer for dialysis. MIRANDA Stratton Discharge Planning/Care Management CM Discharge Assessment Start: 11/25/23 12:08 Freq: Status: Active Protocol: Document 11/25/23 12:12 BF (Rec: 11/25/23 12:17 BF [id number]) Discharge Planning Assessment Assigned Senior Underwriting Assistant MIRANDA Raphael DPOA/Assigned Designee Name esperanza Brooks Contact Information [phone] Advance Directives? No Advance Directives on File No History Provided By Patient,Family Member,Medical Record Has Patient been admitted in last 30 Yes days? Comment pt recently discharged a few days ago to home and now readmit for increased needs Prior Living Arrangements House Comment single story Household Members none Type of transporation used prior to Relies on Others admit Independent with ADL's Yes Is patient alert and oriented? Yes Needs Assistance With Meal Prep,Managing Medications ,Home Chores / Shopping Caregiver for Another No Comment Pt has dialysis twice a week for the past 9 years at the [facility] DME Already Rented / Owned FWW / Walker Patient/Family Preference Home with Home Health Barriers to Discharge Yes Comment Pt may need hospital transfer due to her dialysis needs Discharge Plan Home with Home Health Transportation Arrangement Friend or family Referrals Initiated Home Health Medicare Choice List Provided Yes Medicare choice list reviewed on patient electronic tablet with Whiteboard Updated in Patient Room with Yes name and ext. # of Senior Underwriting Assistant Review Status In Process Please Provide Date Initial DC 11/25/23 Assessment Was Performed Next Review Type Continued Stay Review
[2023-11-25 12:36] LABS: INR 0.9 (0.9-1.3); Prothrombin Time 10.7 SECONDS (9.4-12.5)
--- NOTE | 2023-11-25 14:39 | P.CONS_ITS ---
History of Present Illness Consult details Date Patient Seen: 11/25/23 Time Patient Seen: 14:39 Chief complaint: LEG WOUNDS Reason for consult: left leg hematoma Requesting provider: Jonatan Puentes Narrative: ESRD requiring dialysis has critical anemia requiring transfusion. Left lower leg hematoma established several days ago. Missed her last dialysis. Meds Home Medications and Allergies Home Medications Medication Instructions Recorded Confirmed Type tetrahydrozoline 0.05 % eye drops 1 gtt OP PRN PRN Dry Eyes ##0 12/14/11 11/20/23 History (Visine) magnesium hydroxide 2,400 mg/10 mL 30 ml PO DAILY PRN Constipation ##0 02/03/18 11/20/23 History oral suspension (Milk Of Magnesia Concentrated) diphenhydramine HCl 25 mg capsule 25 mg PO Q4-6H PRN Allergic 06/05/18 11/20/23 History (Benadryl) Symptoms Lactobacillus acidophilus 10 1 cap PO DAILY 08/21/18 11/25/23 History billion cell capsule (Probiotic) multivitamin (Daily-Julee tablet) 1 tab PO DAILY 08/21/18 11/20/23 History omega 6-kvf-gip-fish oil 1,000 mg 4,000 mg PO DAILY 01/17/19 11/20/23 History (120 mg-180 mg) capsule (Fish Oil) zinc 50 mg tablet 50 mg PO DAILY 02/11/19 11/20/23 History citalopram 20 mg tablet 60 mg (3 x 20 mg) PO DAILY #270 04/08/23 11/25/23 Rx tabs diazepam 10 mg tablet (Valium) 30 mg (3 x 10 mg) PO BEDTIME #90 09/13/23 11/25/23 Rx tabs furosemide 40 mg tablet (Lasix) 40 mg PO TID 11/20/23 11/25/23 History oxycodone-acetaminophen 5 mg-325 1 tab PO BID PRN pain 11/20/23 11/25/23 History mg tablet Adult Low Dose Aspirin 1 tab PO 11/21/23 History morphine 15 mg immediate release 15 - 30 mg (1 - 2 x 15 mg) PO Q6H 11/22/23 Rx tablet PRN pain 7 days #30 tabs Allergies Allergy/AdvReac Type Severity Reaction Status Date / Time acetaminophen [From TYLENOL] Allergy Mild LIMIT Verified 09/13/23 09:53 TYLENOL INTAKE, ONE KIDNEY cephalexin [CEPHALEXIN] Allergy Mild RASH Verified 09/13/23 09:53 Penicillins [PENICILLINS] Allergy Mild RASH Verified 09/13/23 09:53 ketorolac [KETOROLAC] Allergy Unknown NO TORADOL Verified 09/13/23 09:53 codeine [CODEINE] AdvReac Mild NAUSEA,VOMI Verified 09/13/23 09:53 TING,HALLUC INATIONS hydrocodone [HYDROCODONE] AdvReac Mild NAUSEA,VOMITING,DIDN'T Verified 09/13/23 09:53 WORK WELL TO CONTROL PAIN prednisone [PREDNISONE] AdvReac Mild SEVERE Verified 09/13/23 09:53 HALLUCINATIONS Exam Vital Signs (past 8 hours): - 11/25/23 07:22 11/25/23 08:00 11/25/23 09:04 Temperature 98 F Pulse Rate 77 Respiratory Rate 14 Blood Pressure 108/50 L Pulse Oximetry 98 Oxygen Delivery Method Nasal Cannula Nasal Cannula Oxygen Flow Rate 0.5 0 11/25/23 12:28 11/25/23 12:44 Temperature 98.6 F 98.8 F Pulse Rate 74 73 Respiratory Rate 14 14 Blood Pressure 116/44 L 121/43 L Pulse Oximetry Oxygen Delivery Method Oxygen Flow Rate Oxygen Delivery Method Nasal Cannula Oxygen Flow Rate 0 Narrative Exam Narrative: focused Left lower extremity hematoma. No evidence of active bleeding. Coags normal. Objective Labs 11/25/23 10:25 11/25/23 10:25 Labs: Laboratory Results - last 24 hr 11/24/23 11/25/23 11/25/23 21:48 00:18 04:35 WBC 8.3 RBC 2.14 L Hgb 7.4 L Hct 21.5 L MCV 100.3 H MCH 34.7 H MCHC 34.6 RDW 14.1 Plt Count 300 Neut % (Auto) 82.1 H Lymph % (Auto) 10.2 L [place] % (Auto) 6.0 Eos % (Auto) 1.3 L Baso % (Auto) 0.4 Neut # (Auto) 6800 Lymph # (Auto) 800 L [place] # (Auto) 500 Eos # (Auto) 100 Baso # (Auto) 0 RBC Morphology Anisocytosis PT INR Sodium 128 L Potassium 5.1 Chloride 87 L Carbon Dioxide 34 H BUN 113 H* Creatinine 4.76 H Estimated GFR 9 L BUN/Creatinine Ratio 23.7 H Glucose 93 Lactate 0.8 Calcium 9.1 Total Bilirubin 0.4 AST 92 H ALT 120 H Alkaline Phosphatase 154 H D Total Protein 7.3 Albumin 4.0 Globulin 3.3 Albumin/Globulin Ratio 1.2 Procalcitonin 0.86 H Urine Color Urine Appearance Urine pH Ur Specific [place] Urine Protein Urine Glucose (UA) Urine Ketones Urine Occult Blood Urine Nitrate Urine Bilirubin Urine Urobilinogen Ur Leukocyte Esterase Urine RBC Urine WBC Ur Squamous Epith Cells Urine Bacteria Ur Culture Indicated? Chlamy pneumoniae PCR Not detected Adenovirus (PCR) Not detected B.parapertussis DNA PCR Not detected Coronavirus OC43 (PCR) Not detected Coronavirus HKU1 (PCR) Not detected Coronavirus 229E (PCR) Not detected SARS-CoV-2 (PCR) Not detected Coronavirus NL63 (PCR) Not detected Human Metapneumovir PCR Not detected Influenza Type A (PCR) Not detected Influenza Type B (PCR) Not detected M. pneumoniae (PCR) Not detected Parainfluenza 1 (PCR) Not detected Parainfluenza 2 (PCR) Not detected Parainfluenza 3 (PCR) Not detected Parainfluenza 4 (PCR) Not detected RSV (PCR) Not detected Entero/Rhino (PCR) Not detected Blood Type O Positive Antibody Screen Negative Crossmatch See Detail 11/25/23 11/25/23 11/25/23 08:48 10:25 12:10 WBC 9.4 RBC 1.87 L Hgb 6.5 L* Hct 19.1 L* MCV 102.2 H MCH 34.6 H MCHC 33.8 RDW 14.4 Plt Count 272 Neut % (Auto) 83.9 H Lymph % (Auto) 7.7 L [place] % (Auto) 6.9 Eos % (Auto) 1.1 L Baso % (Auto) 0.4 Neut # (Auto) 7900 H Lymph # (Auto) 700 L [place] # (Auto) 700 Eos # (Auto) 100 Baso # (Auto) 0 RBC Morphology See below Anisocytosis 1+ H PT 10.7 INR 0.9 Sodium 126 L Potassium 4.8 Chloride 90 L Carbon Dioxide 25 BUN 127 H* Creatinine 4.73 H Estimated GFR 9 L BUN/Creatinine Ratio 26.8 H Glucose 64 L Lactate Calcium 8.5 Total Bilirubin 0.4 AST 69 H ALT 93 H Alkaline Phosphatase 121 Total Protein 6.4 Albumin 3.5 Globulin 2.9 Albumin/Globulin Ratio 1.2 Procalcitonin Urine Color Yellow Urine Appearance Clear Urine pH 5.0 Ur Specific [place] 1.020 Urine Protein Negative Urine Glucose (UA) Negative Urine Ketones Negative Urine Occult Blood Trace-intact Urine Nitrate Negative Urine Bilirubin Negative Urine Urobilinogen 0.2 Ur Leukocyte Esterase 3+ H Urine RBC 1-5/hpf Urine WBC 10-30/hpf H Ur Squamous Epith Cells 5-10 /hpf H Urine Bacteria Moderate (10-30) H Ur Culture Indicated? Specimen cultured Chlamy pneumoniae PCR Adenovirus (PCR) B.parapertussis DNA PCR Coronavirus OC43 (PCR) Coronavirus HKU1 (PCR) Coronavirus 229E (PCR) SARS-CoV-2 (PCR) Coronavirus NL63 (PCR) Human Metapneumovir PCR Influenza Type A (PCR) Influenza Type B (PCR) M. 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 May be amendable to aspiration once it liquifies in 1-2 weeks. Time Spent With Patient Time with patient: less than 30 minutes
--- NOTE | 2023-11-25 14:46 | P.CONS_ITS ---
History of Present Illness Consult details Date Patient Seen: 11/25/23 Time Patient Seen: 12:15 Chief complaint: LEG WOUNDS Narrative: The patient is an 83-year-old female with end-stage renal disease on hemodialysis who injured her left lower extremity about 1 week ago. She developed a large hematoma and an open wound that has been oozing. The patient was admitted to the hospital because of ongoing bleeding and anemia. Wound consult was then requested for recommendations regarding management of the open wound. The patient reports that the wound is painful however her pain has improved since admission. The oozing has subsided however her hemoglobin is down and a transfusion has been ordered. Past history is remarkable for chronic osteomyelitis of the left ankle for which she was previously seen at the wound center several years ago. Meds Home Medications and Allergies Home Medications Medication Instructions Recorded Confirmed Type tetrahydrozoline 0.05 % eye drops 1 gtt OP PRN PRN Dry Eyes ##0 12/14/11 11/20/23 History (Visine) magnesium hydroxide 2,400 mg/10 mL 30 ml PO DAILY PRN Constipation ##0 02/03/18 11/20/23 History oral suspension (Milk Of Magnesia Concentrated) diphenhydramine HCl 25 mg capsule 25 mg PO Q4-6H PRN Allergic 06/05/18 11/20/23 History (Benadryl) Symptoms Lactobacillus acidophilus 10 1 cap PO DAILY 08/21/18 11/25/23 History billion cell capsule (Probiotic) multivitamin (Daily-Julee tablet) 1 tab PO DAILY 08/21/18 11/20/23 History omega 3-fst-nny-fish oil 1,000 mg 4,000 mg PO DAILY 01/17/19 11/20/23 History (120 mg-180 mg) capsule (Fish Oil) zinc 50 mg tablet 50 mg PO DAILY 02/11/19 11/20/23 History citalopram 20 mg tablet 60 mg (3 x 20 mg) PO DAILY #270 04/08/23 11/25/23 Rx tabs diazepam 10 mg tablet (Valium) 30 mg (3 x 10 mg) PO BEDTIME #90 09/13/23 11/25/23 Rx tabs furosemide 40 mg tablet (Lasix) 40 mg PO TID 11/20/23 11/25/23 History oxycodone-acetaminophen 5 mg-325 1 tab PO BID PRN pain 11/20/23 11/25/23 History mg tablet Adult Low Dose Aspirin 1 tab PO 11/21/23 History morphine 15 mg immediate release 15 - 30 mg (1 - 2 x 15 mg) PO Q6H 11/22/23 Rx tablet PRN pain 7 days #30 tabs Allergies Allergy/AdvReac Type Severity Reaction Status Date / Time acetaminophen [From TYLENOL] Allergy Mild LIMIT Verified 09/13/23 09:53 TYLENOL INTAKE, ONE KIDNEY cephalexin [CEPHALEXIN] Allergy Mild RASH Verified 09/13/23 09:53 Penicillins [PENICILLINS] Allergy Mild RASH Verified 09/13/23 09:53 ketorolac [KETOROLAC] Allergy Unknown NO TORADOL Verified 09/13/23 09:53 codeine [CODEINE] AdvReac Mild NAUSEA,VOMI Verified 09/13/23 09:53 TING,HALLUC INATIONS hydrocodone [HYDROCODONE] AdvReac Mild NAUSEA,VOMITING,DIDN'T Verified 09/13/23 09:53 WORK WELL TO CONTROL PAIN prednisone [PREDNISONE] AdvReac Mild SEVERE Verified 09/13/23 09:53 HALLUCINATIONS Review of Systems Musculoskeletal Comments: Pain left lower extremity Exam Vital Signs (past 8 hours): - 11/25/23 07:22 11/25/23 08:00 11/25/23 09:04 Temperature 98 F Pulse Rate 77 Respiratory Rate 14 Blood Pressure 108/50 L Pulse Oximetry 98 Oxygen Delivery Method Nasal Cannula Nasal Cannula Oxygen Flow Rate 0.5 0 11/25/23 12:28 11/25/23 12:44 Temperature 98.6 F 98.8 F Pulse Rate 74 73 Respiratory Rate 14 14 Blood Pressure 116/44 L 121/43 L Pulse Oximetry Oxygen Delivery Method Oxygen Flow Rate Oxygen Delivery Method Nasal Cannula Oxygen Flow Rate 0 Const Other: Elderly female who is alert and oriented in no apparent distress Extrem Other: Traumatic open wound left lower extremity with some clot and mild oozing, hematoma posterior left calf, no sign of infection Objective Labs 11/25/23 10:25 11/25/23 10:25 Labs: Laboratory Results - last 24 hr 11/24/23 11/25/23 11/25/23 21:48 00:18 04:35 WBC 8.3 RBC 2.14 L Hgb 7.4 L Hct 21.5 L MCV 100.3 H MCH 34.7 H MCHC 34.6 RDW 14.1 Plt Count 300 Neut % (Auto) 82.1 H Lymph % (Auto) 10.2 L [place] % (Auto) 6.0 Eos % (Auto) 1.3 L Baso % (Auto) 0.4 Neut # (Auto) 6800 Lymph # (Auto) 800 L [place] # (Auto) 500 Eos # (Auto) 100 Baso # (Auto) 0 RBC Morphology Anisocytosis PT INR Sodium 128 L Potassium 5.1 Chloride 87 L Carbon Dioxide 34 H BUN 113 H* Creatinine 4.76 H Estimated GFR 9 L BUN/Creatinine Ratio 23.7 H Glucose 93 Lactate 0.8 Calcium 9.1 Total Bilirubin 0.4 AST 92 H ALT 120 H Alkaline Phosphatase 154 H D Total Protein 7.3 Albumin 4.0 Globulin 3.3 Albumin/Globulin Ratio 1.2 Procalcitonin 0.86 H Urine Color Urine Appearance Urine pH Ur Specific [place] Urine Protein Urine Glucose (UA) Urine Ketones Urine Occult Blood Urine Nitrate Urine Bilirubin Urine Urobilinogen Ur Leukocyte Esterase Urine RBC Urine WBC Ur Squamous Epith Cells Urine Bacteria Ur Culture Indicated? Chlamy pneumoniae PCR Not detected Adenovirus (PCR) Not detected B.parapertussis DNA PCR Not detected Coronavirus OC43 (PCR) Not detected Coronavirus HKU1 (PCR) Not detected Coronavirus 229E (PCR) Not detected SARS-CoV-2 (PCR) Not detected Coronavirus NL63 (PCR) Not detected Human Metapneumovir PCR Not detected Influenza Type A (PCR) Not detected Influenza Type B (PCR) Not detected M. pneumoniae (PCR) Not detected Parainfluenza 1 (PCR) Not detected Parainfluenza 2 (PCR) Not detected Parainfluenza 3 (PCR) Not detected Parainfluenza 4 (PCR) Not detected RSV (PCR) Not detected Entero/Rhino (PCR) Not detected Blood Type O Positive Antibody Screen Negative Crossmatch See Detail 11/25/23 11/25/23 11/25/23 08:48 10:25 12:10 WBC 9.4 RBC 1.87 L Hgb 6.5 L* Hct 19.1 L* MCV 102.2 H MCH 34.6 H MCHC 33.8 RDW 14.4 Plt Count 272 Neut % (Auto) 83.9 H Lymph % (Auto) 7.7 L [place] % (Auto) 6.9 Eos % (Auto) 1.1 L Baso % (Auto) 0.4 Neut # (Auto) 7900 H Lymph # (Auto) 700 L [place] # (Auto) 700 Eos # (Auto) 100 Baso # (Auto) 0 RBC Morphology See below Anisocytosis 1+ H PT 10.7 INR 0.9 Sodium 126 L Potassium 4.8 Chloride 90 L Carbon Dioxide 25 BUN 127 H* Creatinine 4.73 H Estimated GFR 9 L BUN/Creatinine Ratio 26.8 H Glucose 64 L Lactate Calcium 8.5 Total Bilirubin 0.4 AST 69 H ALT 93 H Alkaline Phosphatase 121 Total Protein 6.4 Albumin 3.5 Globulin 2.9 Albumin/Globulin Ratio 1.2 Procalcitonin Urine Color Yellow Urine Appearance Clear Urine pH 5.0 Ur Specific [place] 1.020 Urine Protein Negative Urine Glucose (UA) Negative Urine Ketones Negative Urine Occult Blood Trace-intact Urine Nitrate Negative Urine Bilirubin Negative Urine Urobilinogen 0.2 Ur Leukocyte Esterase 3+ H Urine RBC 1-5/hpf Urine WBC 10-30/hpf H Ur Squamous Epith Cells 5-10 /hpf H Urine Bacteria Moderate (10-30) H Ur Culture Indicated? Specimen cultured Chlamy pneumoniae PCR Adenovirus (PCR) B.parapertussis DNA PCR Coronavirus OC43 (PCR) Coronavirus HKU1 (PCR) Coronavirus 229E (PCR) SARS-CoV-2 (PCR) Coronavirus NL63 (PCR) Human Metapneumovir PCR Influenza Type A (PCR) Influenza Type B (PCR) M. 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 ESRD (end stage renal disease) on dialysis Chronic osteomyelitis of left ankle (12/21/15) Intestinal obstruction (08/03/15) Small intestine obstruction Acute renal failure on dialysis Surgical History H/O carpal tunnel repair H/O hernia repair S/P DENIS-BSO S/P tonsillectomy and adenoidectomy Social History household members: none Tobacco & Substance Use Smoking Status: Current every day smoker alcohol intake: current Assessment & Plan Assessment and plan (1) Traumatic hematoma of left lower leg: Status: Acute (2) Unspecified open wound, left lower leg, initial encounter: Status: Acute Plan Traumatic full-thickness wound left lower extremity associated with hematoma, no sign of infection. We will start daily dressing changes with Adaptic and absorbent dressing with Kerlix wrap, follow up at wound center after discharge. Time Spent With Patient Time with patient: 30 to 49 minutes with 50% spent counseling/coordinating care
[2023-11-25] MEDS: MORPHINE IR 15 MG TABLET PO (18:52)
[2023-11-25] MEDS: TRANEXAMIC ACID 1,000 MG in SODIUM CHLORIDE 0.9% 100 ML 200 MG IV (19:03)
--- NOTE | 2023-11-25 19:04 | PM.HP.1 ---
History of Present Illness History of Present Illness Date Patient Seen: 11/25/23 Chief complaint: LEG WOUNDS Narrative: From overnight provider: 83 y/o with recent hospitalization (11/20-11/22/2023) for LLE bleeding traumatic hematoma and acute blood loss anemia, presents 2 days after the discharge. Her daughter brought her back today with concerns that the wound is bleeding and she is increasingly weak. She does not note fevers, cough, chills. Mild nausea no vomiting. No headaches. In the ED she had increased neutrophil count but not leukocytosis or fever. ED attending concerned about large blister on the back of the calf and possibly infected hematoma, received vancomycin and cefepime. She is desaturating on room air, at rest, and was placed on 1 L of oxygen. Sleepy, drowsy, after ED pain management. 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 ESRD (end stage renal disease) on dialysis Chronic osteomyelitis of left ankle (12/21/15) Intestinal obstruction (08/03/15) Small intestine obstruction Acute renal failure on dialysis Surgical History H/O carpal tunnel repair H/O hernia repair S/P DENIS-BSO S/P tonsillectomy and adenoidectomy Social History household members: none Smoking Status: Current every day smoker alcohol intake: current Meds Home Medications and Allergies Home Medications Medication Instructions Recorded Confirmed Type tetrahydrozoline 0.05 % eye drops 1 gtt OP PRN PRN Dry Eyes ##0 12/14/11 11/20/23 History (Visine) magnesium hydroxide 2,400 mg/10 mL 30 ml PO DAILY PRN Constipation ##0 02/03/18 11/20/23 History oral suspension (Milk Of Magnesia Concentrated) diphenhydramine HCl 25 mg capsule 25 mg PO Q4-6H PRN Allergic 06/05/18 11/20/23 History (Benadryl) Symptoms Lactobacillus acidophilus 10 1 cap PO DAILY 08/21/18 11/25/23 History billion cell capsule (Probiotic) multivitamin (Daily-Julee tablet) 1 tab PO DAILY 08/21/18 11/20/23 History omega 0-wtw-hli-fish oil 1,000 mg 4,000 mg PO DAILY 01/17/19 11/20/23 History (120 mg-180 mg) capsule (Fish Oil) zinc 50 mg tablet 50 mg PO DAILY 02/11/19 11/20/23 History citalopram 20 mg tablet 60 mg (3 x 20 mg) PO DAILY #270 04/08/23 11/25/23 Rx tabs diazepam 10 mg tablet (Valium) 30 mg (3 x 10 mg) PO BEDTIME #90 09/13/23 11/25/23 Rx tabs furosemide 40 mg tablet (Lasix) 40 mg PO TID 11/20/23 11/25/23 History oxycodone-acetaminophen 5 mg-325 1 tab PO BID PRN pain 11/20/23 11/25/23 History mg tablet Adult Low Dose Aspirin 1 tab PO 11/21/23 History morphine 15 mg immediate release 15 - 30 mg (1 - 2 x 15 mg) PO Q6H 11/22/23 Rx tablet PRN pain 7 days #30 tabs Allergies Allergy/AdvReac Type Severity Reaction Status Date / Time acetaminophen [From TYLENOL] Allergy Mild LIMIT Verified 09/13/23 09:53 TYLENOL INTAKE, ONE KIDNEY cephalexin [CEPHALEXIN] Allergy Mild RASH Verified 09/13/23 09:53 Penicillins [PENICILLINS] Allergy Mild RASH Verified 09/13/23 09:53 ketorolac [KETOROLAC] Allergy Unknown NO TORADOL Verified 09/13/23 09:53 codeine [CODEINE] AdvReac Mild NAUSEA,VOMI Verified 09/13/23 09:53 TING,HALLUC INATIONS hydrocodone [HYDROCODONE] AdvReac Mild NAUSEA,VOMITING,DIDN'T Verified 09/13/23 09:53 WORK WELL TO CONTROL PAIN prednisone [PREDNISONE] AdvReac Mild SEVERE Verified 09/13/23 09:53 HALLUCINATIONS Review of Systems Constitutional Comments: w/o fever or chills ongoing generalized weakness, worse in the last 1-2 days as per the daughter Cardiovascular Comments: w/o chest pain Respiratory Comments: short of breath Musculoskeletal Comments: Oozing LLE hematoma, pain Psychiatric Comments: anxiety, insomnia Exam Vital Signs (past 8 hours): - 11/25/23 12:28 11/25/23 12:44 11/25/23 15:10 Temperature 98.6 F 98.8 F 99.1 F Pulse Rate 74 73 73 Respiratory Rate 14 14 14 Blood Pressure 116/44 L 121/43 L 127/48 L Pulse Oximetry Oxygen Flow Rate 11/25/23 15:44 11/25/23 16:00 11/25/23 16:00 Temperature 99.1 F 98.9 F 98.9 F Pulse Rate 70 71 71 Respiratory Rate 14 15 15 Blood Pressure 128/39 L 135/45 L 135/45 L Pulse Oximetry 98 Oxygen Flow Rate 2 11/25/23 18:56 Temperature 99.3 F Pulse Rate 69 Respiratory Rate 15 Blood Pressure 123/41 L Pulse Oximetry Oxygen Flow Rate Oxygen Delivery Method Nasal Cannula Oxygen Flow Rate 2 Const Other: laying in bed in no distress, sleepy Resp Other: decreased respiratory effort Cardio Other: RRR Skin Other: large LLE traumatic hematoma Objective Labs 11/25/23 10:25 11/25/23 10:25 Labs: Laboratory Results - last 24 hr 11/24/23 11/25/23 11/25/23 21:48 00:18 04:35 WBC 8.3 RBC 2.14 L Hgb 7.4 L Hct 21.5 L MCV 100.3 H MCH 34.7 H MCHC 34.6 RDW 14.1 Plt Count 300 Neut % (Auto) 82.1 H Lymph % (Auto) 10.2 L [place] % (Auto) 6.0 Eos % (Auto) 1.3 L Baso % (Auto) 0.4 Neut # (Auto) 6800 Lymph # (Auto) 800 L [place] # (Auto) 500 Eos # (Auto) 100 Baso # (Auto) 0 RBC Morphology Anisocytosis PT INR Sodium 128 L Potassium 5.1 Chloride 87 L Carbon Dioxide 34 H BUN 113 H* Creatinine 4.76 H Estimated GFR 9 L BUN/Creatinine Ratio 23.7 H Glucose 93 Lactate 0.8 Calcium 9.1 Total Bilirubin 0.4 AST 92 H ALT 120 H Alkaline Phosphatase 154 H D Total Protein 7.3 Albumin 4.0 Globulin 3.3 Albumin/Globulin Ratio 1.2 Procalcitonin 0.86 H Urine Color Urine Appearance Urine pH Ur Specific [place] Urine Protein Urine Glucose (UA) Urine Ketones Urine Occult Blood Urine Nitrate Urine Bilirubin Urine Urobilinogen Ur Leukocyte Esterase Urine RBC Urine WBC Ur Squamous Epith Cells Urine Bacteria Ur Culture Indicated? Chlamy pneumoniae PCR Not detected Adenovirus (PCR) Not detected B.parapertussis DNA PCR Not detected Coronavirus OC43 (PCR) Not detected Coronavirus HKU1 (PCR) Not detected Coronavirus 229E (PCR) Not detected SARS-CoV-2 (PCR) Not detected Coronavirus NL63 (PCR) Not detected Human Metapneumovir PCR Not detected Influenza Type A (PCR) Not detected Influenza Type B (PCR) Not detected M. pneumoniae (PCR) Not detected Parainfluenza 1 (PCR) Not detected Parainfluenza 2 (PCR) Not detected Parainfluenza 3 (PCR) Not detected Parainfluenza 4 (PCR) Not detected RSV (PCR) Not detected Entero/Rhino (PCR) Not detected Blood Type O Positive Antibody Screen Negative Crossmatch See Detail 11/25/23 11/25/23 11/25/23 08:48 10:25 12:10 WBC 9.4 RBC 1.87 L Hgb 6.5 L* Hct 19.1 L* MCV 102.2 H MCH 34.6 H MCHC 33.8 RDW 14.4 Plt Count 272 Neut % (Auto) 83.9 H Lymph % (Auto) 7.7 L [place] % (Auto) 6.9 Eos % (Auto) 1.1 L Baso % (Auto) 0.4 Neut # (Auto) 7900 H Lymph # (Auto) 700 L [place] # (Auto) 700 Eos # (Auto) 100 Baso # (Auto) 0 RBC Morphology See below Anisocytosis 1+ H PT 10.7 INR 0.9 Sodium 126 L Potassium 4.8 Chloride 90 L Carbon Dioxide 25 BUN 127 H* Creatinine 4.73 H Estimated GFR 9 L BUN/Creatinine Ratio 26.8 H Glucose 64 L Lactate Calcium 8.5 Total Bilirubin 0.4 AST 69 H ALT 93 H Alkaline Phosphatase 121 Total Protein 6.4 Albumin 3.5 Globulin 2.9 Albumin/Globulin Ratio 1.2 Procalcitonin Urine Color Yellow Urine Appearance Clear Urine pH 5.0 Ur Specific [place] 1.020 Urine Protein Negative Urine Glucose (UA) Negative Urine Ketones Negative Urine Occult Blood Trace-intact Urine Nitrate Negative Urine Bilirubin Negative Urine Urobilinogen 0.2 Ur Leukocyte Esterase 3+ H Urine RBC 1-5/hpf Urine WBC 10-30/hpf H Ur Squamous Epith Cells 5-10 /hpf H Urine Bacteria Moderate (10-30) H Ur Culture Indicated? Specimen cultured Chlamy pneumoniae PCR Adenovirus (PCR) B.parapertussis DNA PCR Coronavirus OC43 (PCR) Coronavirus HKU1 (PCR) Coronavirus 229E (PCR) SARS-CoV-2 (PCR) Coronavirus NL63 (PCR) Human Metapneumovir PCR Influenza Type A (PCR) Influenza Type B (PCR) M. pneumoniae (PCR) Parainfluenza 1 (PCR) Parainfluenza 2 (PCR) Parainfluenza 3 (PCR) Parainfluenza 4 (PCR) RSV (PCR) Entero/Rhino (PCR) Blood Type Antibody Screen Crossmatch Assessment & Plan Assessment and plan (1) Hematoma of left lower leg: Status: Acute Plan: - concern for infection - given dose of cefepime and vancomycin in ED - WC and BCs pending - not septic, w/o fever or leukocytosis, mild left shift only - procalcitonin elevated at 0.86 - start cefepime and vanc - wound care assessed and gave dressing recs - Dr. Daly gen surg did not think it is actively bleeding, no surgical washout needed at this time (2) ABLA (acute blood loss anemia): Status: Acute Plan: same level as on discharge 2 days ago - still oozing, monitored CBC - 2 units PRBC ordered (3) ESRD (end stage renal disease) on dialysis: Status: Acute Plan: - HD on Sat - missed HD on 11/23 and 11/25 - not hyperkalemic, makes urine - hopefully can discharge soon for HD as outpatient given transfer very difficult as no beds anywhere (4) Depression with anxiety: Status: Acute Plan: SSRI, Valium (5) Anemia, chronic renal failure: Qualifiers: Chronic kidney disease stage: stage 5 Qualified Code(s): N18.5 - Chronic kidney disease, stage 5; D63.1 - Anemia in chronic kidney disease Status: Acute (6) Renovascular hypertension: Status: Acute Plan: - still makes urine - Lasix 120 mg daily Quality VTE Deep Vein Thrombosis/Pulmonary Embolism Present on Admission: No
[2023-11-25] MEDS: diazePAM 5 MG TABLET 30 MG PO (21:48)
[2023-11-25] MEDS: SODIUM CHLORIDE 0.9% FLUSH 10 ML IV (21:48)
[2023-11-25] MEDS: CEFEPIME 0.5 GM in SODIUM CHLORIDE 0.9% 100 ML IV (21:48)
[2023-11-26] VITALS (7 sets, daily range): BP systolic 105–149; BP diastolic 33–57; PULSE 69–75; RESP 14–18; TEMP 36.6–37.6; O2SAT 90–95
--- NOTE | 2023-11-26 06:29 | PC.NURSE ---
pt has slept well this shift; [place] [facility] [place]; pt is weak and unsteady on her feet; she has also had some sporadic muscle twitching in her arms bilaterally
[2023-11-26 06:44] LABS: Add Manual Diff / Slide Review NO; Basophils Absolute Auto 0 /uL (0-100); Basophils Percent Auto 0.3 % (0-2); Eosinophils Absolute Auto 100 /uL (0-450); Eosinophils Percent Auto 1.2 % (2-4); Hemoglobin 9.3 g/dL (12.0-16.0); Lymphocytes Absolute Auto 800 /uL (1100-4500); Lymphocytes Percent Auto 9.9 % (25-40); Mean Corpuscular HGB Conc 34.3 % (30-36); Mean Corpuscular Volume 96.1 fL (80-100); Monocytes Absolute Auto 800 /uL (0-900); Monocytes Percent Auto 9.8 % (3-14); Neutrophils Absolute Auto 6400 /uL (1500-7000); Neutrophils Percent Auto 78.8 % (50-75); Platelet Count 252 X10^3/uL (150-400); Red Blood Cell Count 2.81 X10^6/uL (4.0-5.2); Red Cell Distribution Width 17.4 % (11.6-14.8); White Blood Cell Count 8.1 X10^3/uL (4.5-11.0)
[2023-11-26 07:03] LABS: Alanine Aminotransferase 74 IU/L (<35); Albumin 3.3 g/dL (3.5-5.0); Albumin Globulin Ratio 1.1 (1.0-2.8); Alkaline Phosphatase 126 U/L (38-126); Aspartate Aminotransferase 55 IU/L (14-36); Bilirubin Total 0.5 mg/dL (0.2-1.3); Calcium 8.7 mg/dL (8.4-10.2); Carbon Dioxide 27 mmol/L (22-32); Chloride 93 mmol/L (98-107); Estimated Glomerular Filt Rate 8 mL/min (>60); Globulin 2.9 g/dL (1.7-4.1); Glucose 87 mg/dL (80-110); HEMOLYSIS < 15 (0-50); Potassium 4.5 mmol/L (3.4-5.1); Sodium 129 mmol/L (137-145); Total Protein 6.2 g/dL (6.3-8.2)
[2023-11-26 07:18] LABS: BUN Creatinine Ratio 26.4 (6-22)
[2023-11-26 07:19] LABS: Blood Urea Nitrogen 132 mg/dL (7-17)
--- NOTE | 2023-11-26 09:25 | OT.IP.EVAL ---
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 Chronic osteomyelitis of left ankle (12/21/15) Depression with anxiety ESRD (end stage renal disease) on dialysis History of renal cell cancer Hyperlipidemia Hypertension Intestinal obstruction (08/03/15) Renovascular hypertension S/p nephrectomy SBO (small bowel obstruction) Small intestine obstruction Surgical History (Last Reviewed 11/25/23 @ 14:47 by Gabino Benitez MD) H/O carpal tunnel repair H/O hernia repair S/P DENIS-BSO S/P tonsillectomy and adenoidectomy Occupational Therapy Inpatient Evaluation/Re-Eval M1 PT/OT-IP Prior Functional Status Start: 11/26/23 09:27 Freq: NEEDED Status: Active Protocol: Document 11/26/23 08:56 [facility] (Rec: 11/26/23 10:37 [facility] [id number]) Medical Review Prior Functional Status Medical History Reviewed Yes Communication Pt very drowsy on OT eval but able to answer questions. Mobility and Gait Pt states did not use a device at home . Pt states has had 4 falls in the past week. Activities of Daily Living and IADL's Pt states has been able to do ADL, IADl, and drives prior to her falls and coming to the hospital. Prior Functional Level (Other details) Pt currently on dialysis. Social History Household Members none Living Arrangements House Number of Floors (Floors) One Floor Number of Stairs To Enter/Railing? Pt has 2 steps with right rail to enter the house. Home Environment Standard Height Toilet,Walk in Shower Home Equipment Front Wheel Walker,Four Wheel Walker,Straight Cane,Shower Seat with Backrest,Hand Held Shower,Grab Bars In Shower Additional Social History Comment Pt states has an adjustable bed at home. M2 OT-IP Current Condition Start: 11/26/23 09:27 Freq: Status: Active Protocol: Document 11/26/23 08:56 [facility] (Rec: 11/26/23 10:37 [facility] [id number]) Occupational Therapy Current Condition Current Condition Evaluation Date 11/26/23 Treatment Diagnosis Hematoma LLE, acute blood loss , decreased activity tolerance . Diagnosis Onset Date 11/25/23 M3 OT- IP Subjective and Pain Start: 11/26/23 09:27 Freq: Status: Active Protocol: Document 11/26/23 08:56 [facility] (Rec: 11/26/23 10:37 [facility] [id number]) OT- Subjective Occupational Therapy Visit Type Type Initial Evaluation Visit Start Time 08:56 Visit Stop Time 09:25 Total Visit Minutes 29 Occupational Therapy Visit Comments Patient Comments Pt agreed to get up to the recliner. Patient/Caregiver Goals TO get better. OT Pain Assessment Pain When Pain Assessed At Rest Pain Present Pain Present Pain Reported Location Left Lower Leg Intensity 8 Scale Used Numeric (0 - 10) M4 OT- IP ADL's Start: 11/26/23 09:27 Freq: Status: Active Protocol: Document 11/26/23 08:56 [facility] (Rec: 11/26/23 10:37 [facility] [id number]) OT [id number] Comments OT Self-Feeding Comments Pt needing assist for set-up due to sporadic jerking/ twitching of her arms. OT ADL-Grooming Comments OT Grooming Comments Not performed. OT ADL-Oral Care Comments Oral Care Comments Not performed. OT ADL-Dressing General Eval Lower Body Dressing Ability Total Assistance Comments OT Dressing Comments Pt needing assist for all dressing needs due to decreased balance and jerky movements of her arms. OT ADL-Toileting Comments OT Toileting Comments Per nursing aid pt needing two person assist at this time. OT ADL-Bathing Comments OT Bathing Comments Sponge bath more appropriate at this time versus use of rolling shower chair due to her decreased balance and mobility. M5 OT- IP IADL's Start: 11/26/23 09:27 Freq: Status: Active Protocol: Document 11/26/23 08:56 [facility] (Rec: 11/26/23 10:37 [facility] [id number]) OT-Instrumental Activities of Daily Living Deficits IADL Deficits Identified Deficits Home Safety Awareness Home Safety Comments Pt well aware not able to care for herself at this time. Medication Management Medication Management Comments Due to her twitching / jerking movement, pt will need assist for all need at this time. Money Management Money Management Comments Pt states does automatic payment at home. M6 OT- IP Functional Cognition Start: 11/26/23 09:27 Freq: Status: Active Protocol: Document 11/26/23 08:56 [facility] (Rec: 11/26/23 10:37 [facility] [id number]) Cognitive Factors Limiting Selfcare Function Cognitive Ability Level of Alertness Drowsy Patient Orientation Name,Place,Situation Attention Span Ability Capable of Focused Attention, Capable of Sustained Attention Ability to Follow Commands Able to Follow One Step Commands Cognitive Comments Cognitive Assessment Comments Pt able to follow commands but needing increased time for her to follow commands. Pt agreed that everything seems like it is in slow motion for her. OT- Vision and Hearing OT- Hearing Assessment OT- Hearing Assessment WFL OT- Vision Assessment Visual Attentiveness WFL Occular Pursuits Impaired Horizontal Visual Joy WFL Vision Assessment Comments Pt when tires has delay in occular pursuits horizontally. M7 OT- IP Mobility and Balance Start: 11/26/23 09:27 Freq: Status: Active Protocol: Document 11/26/23 08:56 [facility] (Rec: 11/26/23 10:37 [facility] [id number]) OT- Bed Mobility Assessment Supine to Sit Supine to Sit Assist Minimal Assistance Scooting Scooting to Edge of Bed Minimal Assistance OT-Transfer Assessment Sit to and From Stand Sit to and from Stand Maximum Assistance Transfers Transfer Ability Maximum Assistance Technique Transfer Destination Bed,Chair Transfer Technique Stand Step Pivot Devices Transfer Assistive Devices Gait Belt,Front Wheeled Walker Comments Mobility Comments LAURA to get upright with HOB up and pt tend to lean back into posterior tilt. MAX AX 1 to hold her LUE on the FWW, assist to keep upright and to guide the FWW. Pt having ataxic movements. OT- Balance Assessment Sitting Balance and Reactions Static Sitting Balance Ability Poor Dynamic Sitting Balance Ability Poor Standing Balance and Reactions Static Standing Balance Ability Poor Dynamic Standing Balance Ability Poor Comments Other Balance Tests/Deviations/Treatment Pt at times leans sporadically : into posterior tilt and needing assist to help keep her forwards. At this time best to have nursing use two person assist for safety, especially since her left hand tends to slip off the handle of the FWW and LLE ash due to pain. M8 OT- IP Objective Assessments Start: 11/26/23 09:27 Freq: Status: Active Protocol: Document 11/26/23 08:56 [facility] (Rec: 11/26/23 10:37 [facility] [id number]) OT Gross Range of Motion Upper Extremity Range of Motion Assessment Within Functional Limits OT Strength Comments Strength Comments BUE 4-/5 to 4/5 OT- Coordination Assessment Upper Extremity Finger to Nose Test Left UE Impaired Finger Tapping Test Bilateral UE Impaired Comments Coordination Comments Increased time for finger tapping left hand greater than right side. Pt has ataxic movements with BUE, left much more than right side. M9 OT- IP Assessment and Plan Start: 11/26/23 09:27 Freq: Status: Active Protocol: Document 11/26/23 08:56 [facility] (Rec: 11/26/23 10:37 [facility] [id number]) OT Summary Assessment and Plan Potential Rehabilitation Potential Good Analytic Complexity at Evaluation Moderate Summary OT Impairments Pain,Strength,Balance,Tone, Functional Mobility,Self- Feeding,Grooming,Dressing, Toileting,Bathing,Toilet Transfers,Shower Transfers, Activity Tolerance Progress Towards Goals Slow Progress due to Pain,Slow Progress due to Medical Issues,Slow Progress due to Activity Tolerance Assessment Summary Pt MOD complexity and main barriers are steps, now needing two person assist for ADL and mobility needs, having ataxic movement with BUE , left arm more so than right arm at this time. Pt not able to keep her left hand on the FWW and needing to have assist to hold it in place. Pt will benefit from skilled rehab at this time. Goals Self-Feeding Goal Independent Grooming Goal Independent Dressing Goal Independent Toileting Goal Independent Bathing Goal Standby Assistance Toilet Transfer Goal Independent Shower Transfer Goal Standby Assistance Days to Meet Goals 25 Frequency of Treatment Frequency Of Treatment Once a Day Treatment Plan OT Treatment Plan ADL Training,Functional Cognition Training,Functional Mobility,Patient/Family Education,Discharge Planning Discharge Recommendations OT Discharge Recommendations SNF Rehab Transportation Needs at Discharge Wheelchair/Cabulance
[2023-11-26] MEDS: CITALOPRAM 10 MG TABLET 60 MG PO (10:07)
[2023-11-26] MEDS: LACTOBACILLUS ACIDOPHILUS TABLET 1 EACH PO (10:07)
[2023-11-26] MEDS: FUROSEMIDE 40 MG TABLET 120 MG PO (10:07)
[2023-11-26] MEDS: SODIUM CHLORIDE 0.9% FLUSH 10 ML IV ×3 (10:08→16:02)
[2023-11-26] MEDS: FUROSEMIDE 40 MG/4 ML VIAL IV ×2 (10:43→16:02)
--- NOTE | 2023-11-26 10:53 | PC.NURSE ---
Notified Dr. Puentes this morning of concerns with patient. Patient has increased weakness this morning requiring 2 PA with O.T. to assist into chair, legs giving out beneath her. Also noting increased twitching' and jerky movements with her arms. Unable to wean Oxygen NC, patient de saturated with movement with O.T. Additional dose of lasix ordered and given. Continue to monitor, and anticipate transfer for dialysis.
--- NOTE | 2023-11-26 12:50 | CM.DPNOTE ---
DCP Note Met w/patient and her two friends at bedside. Patient typically has dialysis at [facility] in [place] Tues/Sat at 0600. Discussed a way to discharge to SNF and still make dialysis. Discussed referral with Alina at [facility]. Ultimately, Dr Puentes decided on transfer to [facility] for further medical management, dialysis etc. Updated Alina at [facility] JW
--- NOTE | 2023-11-26 12:55 | PT-IP ANOTE ---
Per hospitalist, d/c PT eval and pt plans to be transferring for dialysis need.
--- NOTE | 2023-11-26 14:16 | PM.DS.1 ---
History of Present Illness History of Present Illness Chief complaint: LEG WOUNDS Narrative: From overnight provider: 83 y/o with recent hospitalization (11/20-11/22/2023) for LLE bleeding traumatic hematoma and acute blood loss anemia, presents 2 days after the discharge. Her daughter brought her back today with concerns that the wound is bleeding and she is increasingly weak. She does not note fevers, cough, chills. Mild nausea no vomiting. No headaches. In the ED she had increased neutrophil count but not leukocytosis or fever. ED attending concerned about large blister on the back of the calf and possibly infected hematoma, received vancomycin and cefepime. She is desaturating on room air, at rest, and was placed on 1 L of oxygen. Sleepy, drowsy, after ED pain management. Discharge Providers Provider Date of admission: 11/25/23 00:22 Discharge Date: 11/26/23 Primary care physician: Rashel Ríos MD Consults: 11/25/23 02:26 Consult to Dietitian, Adult Routine Comment: Reason For Exam: LLE wound Consult to Wound Care Routine Comment: Consulting Provider: [facility] 11/25/23 11:10 Consult to General Surgery Routine Comment: Consulting Provider: Alisa Daly Reason for consultation: L calf hematoma, dropping Hgb Has provider been notified: Yes 11/25/23 14:59 Consult to Physical Therapy Evaluate & Treat Comment: Physician Instructions: Evaluate and Treat 11/25/23 15:00 Consult to Occupational Therapy Evaluate & Treat Comment: Physician Instructions: Evaluate and treat 11/26/23 08:55 Consult to Home Health Routine Comment: Reason For Exam: PT/OT and wound dressing changes Discharge provider: Jonatan Puentes DO Summary Hospital Course Discharge Diagnosis: (1) Hematoma of left lower leg with possible surrounding cellulitis Status: Acute Plan: - given dose of cefepime and vancomycin in ED - wound culture growing GPC's - not septic, w/o fever or leukocytosis, mild left shift only - procalcitonin elevated at 0.86 so started abx - start cefepime and vanc in case of cellulitis - wound care assessed and gave dressing recs, rec - Dr. Daly gen surg did not think it is actively bleeding, no surgical washout needed at this time, can consider aspiration once liquifies in 1-2 weeks (2) ABLA (acute blood loss anemia): Status: Acute Plan: - wound still oozing, CBC down from 7.4 to 6.5 - 2 units PRBC ordered, in hindsight should have given only 1 unit to not volume overload - Hgb now 9.3 - pressure dressing as gove (3) ESRD (end stage renal disease) on dialysis: Status: Acute Plan: - HD on Sat / Sat - missed HD on 11/23 and 11/26 - not hyperkalemic, makes urine - transferring to for dialysis - BUN uptrending and patient now having myclonic jerks - gave 40mg IV lasix on 11/26 as patient requiring 2L NC and likely volume overloaded (4) Depression with anxiety: Status: Acute Plan: SSRI, Valium (5) Anemia, chronic renal failure: Qualifiers: Chronic kidney disease stage: stage 5 Qualified Code(s): N18.5 - Chronic kidney disease, stage 5; D63.1 - Anemia in chronic kidney disease Status: Acute (6) Renovascular hypertension: Status: Acute Plan: - still makes urine - Lasix 120 mg daily - gave IV lasix (7) Acute hypoxic resp failure -on 2L NC, likely due to volume overload -IV lasix given -needs dialysis juliana Hospital Course: See above problem list. Transferred to for emergent dialysis as it has been a week since last HD. Exam Vital Signs (past 8 hours): - 11/26/23 07:00 11/26/23 08:00 11/26/23 12:00 Temperature 97.8 F Pulse Rate 69 Respiratory Rate 18 Blood Pressure 105/33 L Pulse Oximetry 91 94 Oxygen Delivery Method Nasal Cannula Nasal Cannula Oxygen Flow Rate 2 2 Oxygen Delivery Method Nasal Cannula Oxygen Flow Rate 2 Const Other: laying in bed in no distress, sleepy Resp Other: decreased respiratory effort Cardio Other: RRR Skin Other: large LLE traumatic hematoma Objective Labs 11/26/23 03:20 11/26/23 03:20 Labs: Laboratory Results - last 24 hr 11/24/23 11/26/23 21:48 03:20 WBC 8.1 RBC 2.81 L Hgb 9.3 L Hct 27.0 L MCV 96.1 D MCH 33.0 MCHC 34.3 RDW 17.4 H Plt Count 252 Neut % (Auto) 78.8 H Lymph % (Auto) 9.9 L Larue % (Auto) 9.8 Eos % (Auto) 1.2 L Baso % (Auto) 0.3 Neut # (Auto) 6400 Lymph # (Auto) 800 L Larue # (Auto) 800 Eos # (Auto) 100 Baso # (Auto) 0 Sodium 129 L Potassium 4.5 Chloride 93 L Carbon Dioxide 27 BUN 132 H* Creatinine 5.00 H Estimated GFR 8 L BUN/Creatinine Ratio 26.4 H Glucose 87 Calcium 8.7 Total Bilirubin 0.5 AST 55 H ALT 74 H Alkaline Phosphatase 126 Total Protein 6.2 L Albumin 3.3 L Globulin 2.9 Albumin/Globulin Ratio 1.1 Blood Type O Positive Antibody Screen Negative Crossmatch See Detail [facility] Medical History Depression with anxiety Renovascular hypertension Chronic low back pain Anemia, chronic renal failure Hyperlipidemia S/p nephrectomy Anxiety Hypertension SBO (small bowel obstruction) History of renal cell cancer 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 ESRD (end stage renal disease) on dialysis Chronic osteomyelitis of left ankle (12/21/15) Intestinal obstruction (08/03/15) Small intestine obstruction Acute renal failure on dialysis Surgical History H/O carpal tunnel repair H/O hernia repair S/P DENIS-BSO S/P tonsillectomy and adenoidectomy Social History household members: none Smoking Status: Current every day smoker alcohol intake: current Discharge Plan Discharge Plan Patient Disposition: Xfer Acute Care Hospital Visit Report/Discharge Packet Stand Alone Forms: Patient Portal/API, Stroke Signs & Symptoms Discharge Data Primary Care Provider: Rashel Ríos VTE Deep Vein Thrombosis/Pulmonary Embolism Present on Admission: No
--- NOTE | 2023-11-26 16:51 | PC.NURSE ---
Addendum entered by Mateo Gibson R.N. 11/26/23 18:23: 1730 patient picked up by ambulance. Patient's niece Cecilia notified of pick remover time. 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 Patient on 3L NC, vss, lethargic. SLIV to Right AC patent. Dressing to left lower leg intact. Original Note: Report given to Hanna at [facility] [phone]. Per coordinator ambulance pick remover expected at 1650 for transport.
== END 2023-11-26 17:30 | disposition short-term general hospital (02) | DRG 604 ==
LOC: ED 11-25 00:15 → AC 11-25 00:22
PROVIDERS: Student in an Organized Health Care Education/Training Program; Surgery; Admitting Provider Internal Medicine; Emergency Provider Emergency Medicine; PCP Family Medicine; Referring Provider Emergency Medicine; Visit Provider Internal Medicine
DX: S80.12XA Contusion of left lower leg, initial encounter (principal); J96.01 Acute respiratory failure with hypoxia; N18.6 End stage renal disease; D62 Acute posthemorrhagic anemia; I12.0 Hypertensive chronic kidney disease with stage 5 chronic kidney disease or end stage renal disease; L03.116 Cellulitis of left lower limb; F17.200 Nicotine dependence, unspecified, uncomplicated; F32.A Depression, unspecified; F41.9 Anxiety disorder, unspecified; D63.1 Anemia in chronic kidney disease; B96.89 Other specified bacterial agents as the cause of diseases classified elsewhere; S81.802A Unspecified open wound, left lower leg, initial encounter; W18.30XA Fall on same level, unspecified, initial encounter; Z99.2 Dependence on renal dialysis
CPT/HCPCS: 36415; 36430; 73700; 80053; 81001; 83605; 84145; 85025; 85610; 86850; 86900; 86901; 87070; 87075; 87077; 87086; 87147; 87186; 87205; 87633; 94760; 96365; 96367; 97166; 99232; 99233; 99284; 99285; P9016; J0692; J1940

== ENCOUNTER 2024-03-06 06:31 | Emergency (ER) | payer MEDICARE, SELFPAY ==
[2023-11-25 01:06] VITALS: BMI 18.5
[2024-03-06 06:43] VITALS: BP 160/72; PULSE 80; RESP 18; TEMP 36.6; O2SAT 98
--- NOTE | 2024-03-06 06:54 | DI.US.S_ITS ---
PROCEDURE: US PERIPH VENOUS LOW EXTREM LT INDICATIONS: LT LOWER LEG SWELLING TECHNIQUE: Real-time imaging, as well as color and pulse Doppler interrogation, were performed of the lower extremity deep veins from the inguinal ligament to the popliteal fossa, with documentation of the visualized calf veins. COMPARISON: None. FINDINGS: The common femoral, femoral, popliteal, and the visualized calf veins are normally compressible, and free of intraluminal thrombus. Color and pulse Doppler demonstrate normal phasic intraluminal flow. There is normal augmentation response to distal compression maneuver. IMPRESSION: No findings of lower extremity deep venous thrombosis. Dictated by: Peg Sigala M.D. on 03/06/2024 at 8:13 Approved by: Peg Sigala M.D. on 03/06/2024 at 8:15
--- NOTE | 2024-03-06 07:03 | ED.EXTPRO ---
HPI - Extremity Problem General Chief complaint: Extremity Problem,Nontraumatic Stated complaint: possible blood clot left leg calf area Time Seen by Provider: 03/06/24 06:54 Source: patient Mode of arrival: Ambulatory History of Present Illness HPI Narrative: Patient is a 83-year-old female with history chronic kidney disease on dialysis with history of left leg injury large hematoma requiring hospitalization at [facility]. She continues to have a wound on the left leg but it seems to be healing. She was admitted for IV antibiotics in January she was sent home on antibiotics but is not currently on antibiotics. She had a follow-up appointment yesterday at [facility] and was thought that her left leg was more swollen and needed an ultrasound. She reports that it is mildly swollen but overall looks the same. She has a chronic wound that is mildly erythematous with drainage. She denies any worsening pain or fever. She reports that over the last couple of days bit more swollen but she really can not tell a difference. She denies any fever chills weakness you can just pain or shortness of breath. Related Data Home Medications Medication Instructions Recorded Confirmed tetrahydrozoline 0.05 % eye drops 1 gtt OP PRN PRN Dry Eyes ##0 12/14/11 02/07/24 (Visine) magnesium hydroxide 2,400 mg/10 mL 30 ml PO DAILY PRN Constipation ##0 02/03/18 02/07/24 oral suspension (Milk Of Magnesia Concentrated) diphenhydramine HCl 25 mg capsule 25 mg PO Q4-6H PRN Allergic 06/05/18 02/07/24 (Benadryl) Symptoms Lactobacillus acidophilus 10 1 cap PO DAILY 08/21/18 02/07/24 billion cell capsule (Probiotic) multivitamin (Daily-Julee tablet) 1 tab PO DAILY 08/21/18 02/07/24 omega 2-tzv-qss-fish oil 1,000 mg 4,000 mg PO DAILY 01/17/19 02/07/24 (120 mg-180 mg) capsule (Fish Oil) zinc 50 mg tablet 50 mg PO DAILY 02/11/19 02/07/24 Adult Low Dose Aspirin 1 tab PO DAILY 11/21/23 02/07/24 Previous Rx's Medication Instructions Recorded citalopram 20 mg tablet 60 mg (3 x 20 mg) PO DAILY #270 04/08/23 tabs furosemide 40 mg tablet (Lasix) 40 mg PO TID #180 tabs 12/14/23 diazepam 10 mg tablet (Valium) 30 mg (3 x 10 mg) PO BEDTIME #90 02/07/24 tabs oxycodone-acetaminophen 5 mg-325 1 tab PO BID PRN pain #60 tabs 02/07/24 mg tablet (Percocet) oxycodone-acetaminophen 5 mg-325 1 tab PO BID PRN pain #60 tabs 02/07/24 mg tablet (Percocet) oxycodone-acetaminophen 5 mg-325 1 tab PO BID PRN pain #60 tabs 02/07/24 mg tablet (Percocet) Allergies Allergy/AdvReac Type Severity Reaction Status Date / Time acetaminophen [From TYLENOL] Allergy Mild LIMIT Verified 02/07/24 10:24 TYLENOL INTAKE, ONE KIDNEY cephalexin [CEPHALEXIN] Allergy Mild RASH Verified 02/07/24 10:24 Penicillins [PENICILLINS] Allergy Mild RASH Verified 02/07/24 10:24 ketorolac [KETOROLAC] Allergy Unknown NO TORADOL Verified 02/07/24 10:24 codeine [CODEINE] AdvReac Mild NAUSEA,VOMI Verified 02/07/24 10:24 TING,HALLUC INATIONS hydrocodone [HYDROCODONE] AdvReac Mild NAUSEA,VOMITING,DIDN'T Verified 02/07/24 10:24 WORK WELL TO CONTROL PAIN prednisone [PREDNISONE] AdvReac Mild SEVERE Verified 02/07/24 10:24 HALLUCINATIONS Patient History Medical History Depression with anxiety Renovascular hypertension Chronic low back pain Anemia, chronic renal failure Hyperlipidemia S/p nephrectomy Anxiety Hypertension SBO (small bowel obstruction) History of renal cell cancer 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 ESRD (end stage renal disease) on dialysis Chronic osteomyelitis of left ankle (12/21/15) Intestinal obstruction (08/03/15) Small intestine obstruction Acute renal failure on dialysis Surgical History H/O carpal tunnel repair H/O hernia repair S/P DENIS-BSO S/P tonsillectomy and adenoidectomy Social History household members: none Smoking Status: Current every day smoker alcohol intake: current Smoking Status: Current every day smoker tobacco type: cigarettes alcohol intake frequency: holidays/special occasions only Substance Use Type: does not use Exam Initial Vital Signs Initial Vital Signs: Vital Signs Temperature 98 F 03/06/24 06:43 Pulse Rate 80 03/06/24 06:43 Respiratory Rate 18 03/06/24 06:43 Blood Pressure 160/72 H 03/06/24 06:43 Pulse Oximetry 98 03/06/24 06:43 Oxygen Delivery Method Room Air 03/06/24 06:43 GENERAL: Alert pleasant 83-year-old female and in no acute distress. HEENT: Head atraumatic,EOMI, pupils reactive, face symmetric, moist mucous membranes CARDIOVASCULAR: Regular rate and rhythm without murmurs, rubs or gallops. RESPIRATORY: Breath sounds equal bilaterally, no wheezes rales or rhonchi. EXTREMITIES: Normal range of motion, no clubbing or edema. Neurovascularly intact Left leg swelling, distal pedal pulse hard to find but foot is warm NEUROLOGICAL: Alert and oriented x4. SKIN: Left leg chronic wound mild drainage, minimal erythema Course Orders Ordered: ED Orders 03/06/24 06:54 US periph venous low extrem lt Stat Vital Signs Vital signs: Vital Signs - 8 hr 03/06/24 06:43 03/06/24 08:50 Temperature 98 F 98 F Pulse Rate 80 67 Respiratory Rate 18 16 Blood Pressure 160/72 H 133/63 Pulse Oximetry 98 98 Oxygen Delivery Method Room Air Room Air MDM - Extremity (Nontraumatic) Imaging Data US - DVT: Radiologist's Impression: PROCEDURE: US PERIPH VENOUS LOW EXTREM LT INDICATIONS: LT LOWER LEG SWELLING TECHNIQUE: Real-time imaging, as well as color and pulse Doppler interrogation, were performed of the lower extremity deep veins from the inguinal ligament to the popliteal fossa, with documentation of the visualized calf veins. COMPARISON: None. FINDINGS: The common femoral, femoral, popliteal, and the visualized calf veins are normally compressible, and free of intraluminal thrombus. Color and pulse Doppler demonstrate normal phasic intraluminal flow. There is normal augmentation response to distal compression maneuver. IMPRESSION: No findings of lower extremity deep venous thrombosis. Dictated by: Peg Sigala M.D. on 03/06/2024 at 8:13 MDM Narrative Medical decision making narrative: Patient is a tanya 83-year-old female presents today with left leg swelling. She has had injury to the left leg earlier with an infection. She is currently followed by infectious disease. She has a chronic wound it appears mildly erythematous but she is afebrile ultrasound is negative for DVT. I recommend that she follow up with Infectious Disease. And monitor the redness. She understands. At this time I would not start her on antibiotics, she has no evidence of sepsis is minimally red. Discharge Plan Departure Patient Disposition: Home Clinical Impression: Left leg swelling Instructions: DI for Cellulitis -- Adult Activity Restrictions/Additional Instructions: *You have been diagnosed with left leg swelling *What to do: At this time please monitor the redness and drainage from your wound. You need to follow-up with infectious disease. At this time there is no evidence of a blood. *Continue to take medications as directed *Follow up with your primary care provider in 2-3 days or call [phone] *Return to ER if you should have increasing confusion redness fever pain or any new, worsening or concerning symptoms Prescriptions: No Action tetrahydrozoline [Visine] 15 ML drops 1 gtt OP PRN PRN (Reason: Dry Eyes) Qty: 0 magnesium hydroxide [Milk Of Magnesia Concentrated] 2,400 MG/10 ML suspension 30 ml PO DAILY PRN (Reason: Constipation) Qty: 0 citalopram 20 mg tablet 60 mg PO DAILY Qty: 270 3RF Patient Comments: Takes 20 mg. tabs X 3 furosemide [Lasix] 40 mg tablet 40 mg PO TID Qty: 180 1RF Patient Comments: Pt. states takes tabs X 3 together daily on non-dialysis days only. diazepam [Valium] 10 mg tablet 30 mg PO BEDTIME Qty: 90 0RF oxycodone-acetaminophen [Percocet] 5-325 mg tablet 1 tab PO BID PRN (Reason: pain) Qty: 60 0RF oxycodone-acetaminophen [Percocet] 5-325 mg tablet 1 tab PO BID PRN (Reason: pain) Qty: 60 0RF oxycodone-acetaminophen [Percocet] 5-325 mg tablet 1 tab PO BID PRN (Reason: pain) Qty: 60 0RF zinc 50 mg tablet 50 mg PO DAILY diphenhydramine HCl [Benadryl] 25 mg Capsule 25 mg PO Q4-6H PRN (Reason: Allergic Symptoms) Patient Comments: Takes on dialysis days Probiotic 10 billion cell Capsule 1 cap PO DAILY multivitamin [Daily-Julee] Tablet 1 tab PO DAILY omega 1-hym-acm-fish oil [Fish Oil] 1,000 mg (120 mg-180 mg) Capsule 4,000 mg PO DAILY Adult Low Dose Aspirin 81 mg tablet 1 tab PO DAILY Referrals: Rashel Ríos MD [Primary Care Provider] - Stand Alone Forms: Patient Portal/API
[2024-03-06 08:50] VITALS: BP 133/63; PULSE 67; RESP 16; TEMP 36.6; O2SAT 98
== END 2024-03-06 08:51 | disposition home or self-care (01) ==
PROVIDERS: Emergency Provider Emergency Medicine; PCP Family Medicine
DX: M79.89 Other specified soft tissue disorders (principal)
CPT/HCPCS: 93971; 99281; 99282

== ENCOUNTER 2024-03-15 07:48 | Emergency (ER) | payer MEDICARE, SELFPAY ==
[2023-11-25 01:06] VITALS: BMI 18.5
[2024-03-15 08:05] VITALS: BP 135/64; PULSE 74; RESP 18; TEMP 36.9; O2SAT 95; BMI 19.5
[2024-03-15 08:14] VITALS: PULSE 76; O2SAT 94
[2024-03-15 08:15] VITALS: BP 134/63; PULSE 74; O2SAT 95
--- NOTE | 2024-03-15 08:19 | DI.RAD.S_ITS ---
PROCEDURE: XR CHEST 2V INDICATIONS: URI symptoms TECHNIQUE: 2 views of the chest were acquired. COMPARISON: [facility], CR, XR CHEST 2 VIEWS, 01/25/2019, 11:54. [facility], CR, XR CHEST 1 VIEW, 01/26/2019, 10:45. [facility], CR, XR CHEST 1 VIEW, 06/18/2023, 12:05. [facility], CR, CHEST 2 VIEW, 01/17/2017, 8:56. FINDINGS: Surgical changes and devices: Left upper quadrant clips are seen. There is a left subclavian stent. Lungs and pleura: Poorly defined opacities can be seen at both lung bases. Generalized interstitial prominence can be seen more superiorly. No pleural effusions or pneumothorax. Mediastinum: The cardiac contours are within normal limits. The aorta demonstrates calcification and tortuosity. Bones and chest wall: No suspicious bony abnormalities. Age-appropriate bony degenerative changes are seen. Accentuated thoracic kyphosis is seen. S shaped scoliotic curvature is seen. Soft tissues appear unremarkable. IMPRESSION: Poorly defined opacities can be seen at the lung bases. Atelectasis is suspected, infection is possible. Generalized interstitial prominence can be seen more superiorly within the lungs. Viral infiltrate is suspected, although differential diagnosis includes pulmonary edema. Postoperative and degenerative changes are seen. Dictated by: Gerardo Zayas M.D. on 03/15/2024 at 8:08 Approved by: Gerardo Zayas M.D. on 03/15/2024 at 8:11
--- NOTE | 2024-03-15 08:27 | ED.URI ---
HPI - URI/Sore Throat General Chief Complaint: Upper Respiratory Symptoms Stated Complaint: cough/sneezing/ T-3 Time Seen by Provider: 03/15/24 08:27 Source: patient Mode of arrival: Ambulatory History of Present Illness HPI Narrative: This is an 83-year-old with history of chronic kidney disease on dialysis status post nephrectomy, prior left leg injury with a large hematoma who now has skin grafts on the left leg following with Lupe padilla. Patient presents she thinks that she has a upper respiratory infection she has had nasal congestion and cough that is moved down into her chest. She denies fevers or chills. No chest pain or pressure. She had maybe a little mild shortness of breath. She denies any nausea or vomiting, no diarrhea or constipation. States she has been making urine. Patient states no decrease in output. No new swelling of extremities. Patient states no increases or changes to wait. She did miss her dialysis yesterday because she felt unwell. Patient is on aspirin, she states a water pill but states no medication for blood pressure, cholesterol or diabetes. She is multiple medication allergies. States that she has had prior fistula, nephrectomy for renal cancer, had a skin graft Lupe padilla which she is continuing to follow. She does smoke 3-5 cigarettes daily, occasional alcohol, no recreational drugs. Accompanied by family. 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 Dr. Ríos is her primary care physician. Related Data Home Medications Medication Instructions Recorded Confirmed tetrahydrozoline 0.05 % eye drops 1 gtt OP PRN PRN Dry Eyes ##0 12/14/11 02/07/24 (Visine) magnesium hydroxide 2,400 mg/10 mL 30 ml PO DAILY PRN Constipation ##0 02/03/18 02/07/24 oral suspension (Milk Of Magnesia Concentrated) diphenhydramine HCl 25 mg capsule 25 mg PO Q4-6H PRN Allergic 06/05/18 02/07/24 (Benadryl) Symptoms Lactobacillus acidophilus 10 1 cap PO DAILY 08/21/18 02/07/24 billion cell capsule (Probiotic) multivitamin (Daily-Julee tablet) 1 tab PO DAILY 08/21/18 02/07/24 omega 4-jaz-std-fish oil 1,000 mg 4,000 mg PO DAILY 01/17/19 02/07/24 (120 mg-180 mg) capsule (Fish Oil) zinc 50 mg tablet 50 mg PO DAILY 02/11/19 02/07/24 Adult Low Dose Aspirin 1 tab PO DAILY 11/21/23 02/07/24 Previous Rx's Medication Instructions Recorded citalopram 20 mg tablet 60 mg (3 x 20 mg) PO DAILY #270 04/08/23 tabs furosemide 40 mg tablet (Lasix) 40 mg PO TID #180 tabs 12/14/23 diazepam 10 mg tablet (Valium) 30 mg (3 x 10 mg) PO BEDTIME #90 02/07/24 tabs oxycodone-acetaminophen 5 mg-325 1 tab PO BID PRN pain #60 tabs 02/07/24 mg tablet (Percocet) oxycodone-acetaminophen 5 mg-325 1 tab PO BID PRN pain #60 tabs 02/07/24 mg tablet (Percocet) oxycodone-acetaminophen 5 mg-325 1 tab PO BID PRN pain #60 tabs 02/07/24 mg tablet (Percocet) Allergies Allergy/AdvReac Type Severity Reaction Status Date / Time acetaminophen [From TYLENOL] Allergy Mild LIMIT Verified 02/07/24 10:24 TYLENOL INTAKE, ONE KIDNEY cephalexin [CEPHALEXIN] Allergy Mild RASH Verified 02/07/24 10:24 Penicillins [PENICILLINS] Allergy Mild RASH Verified 02/07/24 10:24 ketorolac [KETOROLAC] Allergy Unknown NO TORADOL Verified 02/07/24 10:24 codeine [CODEINE] AdvReac Mild NAUSEA,VOMI Verified 02/07/24 10:24 TING,HALLUC INATIONS hydrocodone [HYDROCODONE] AdvReac Mild NAUSEA,VOMITING,DIDN'T Verified 02/07/24 10:24 WORK WELL TO CONTROL PAIN prednisone [PREDNISONE] AdvReac Mild SEVERE Verified 02/07/24 10:24 HALLUCINATIONS Review of Systems Review of Systems ROS Unobtainable: All systems reviewed & are unremarkable except as noted in HPI and below Patient History Medical History Depression with anxiety Renovascular hypertension Chronic low back pain Anemia, chronic renal failure Hyperlipidemia S/p nephrectomy Anxiety Hypertension SBO (small bowel obstruction) History of renal cell cancer 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 ESRD (end stage renal disease) on dialysis Chronic osteomyelitis of left ankle (12/21/15) Intestinal obstruction (08/03/15) Small intestine obstruction Acute renal failure on dialysis Surgical History H/O carpal tunnel repair H/O hernia repair S/P DENIS-BSO S/P tonsillectomy and adenoidectomy Social History household members: none Smoking Status: Current every day smoker alcohol intake: current Smoking Status: Current every day smoker tobacco type: cigarettes alcohol intake frequency: holidays/special occasions only Substance Use Type: does not use Exam Narrative Exam Narrative: GEN: well nourished, well appearing elderly female, alert and oriented x 3, patient appears to be in mild distress. HEENT: Atraumatic, pupils are equal round reactive to light, extraocular movements are intact, mild nasal congestion, there is no conjunctival pallor. HEART: Regular rate and rhythm without murmur, clicks, rubs. Patient has audible fistula on examination of the chest. She states this is normal. LUNGS:Lungs clear to auscultation, no wheezes, rales, crackles, chest moves symmetrically, no tachypnea accessory muscle use. Patient has a occasional cough. ABD:bowel sounds normal, soft, non-tender, no guarding, rebound, rigidity, no masses noted, no hepatosplenomegaly :No CVA tenderness MSCL: Patient has protective covering over her left lower extremity, Muscles strength 5/5 upper and lower extremities, full range of motion, normal gait NEURO:CN 2-12 intact, sensation normal Initial Vital Signs Initial Vital Signs: Vital Signs Temperature 98.4 F 03/15/24 08:05 Pulse Rate 74 03/15/24 08:05 Respiratory Rate 18 03/15/24 08:05 Blood Pressure 135/64 03/15/24 08:05 Pulse Oximetry 95 03/15/24 08:05 Oxygen Delivery Method Room Air 03/15/24 08:05 Course Orders Ordered: ED Orders 03/15/24 08:10 Respiratory Panel (Film Array) Stat 03/15/24 08:19 Chest [XR chest 2V] Stat 03/15/24 08:40 Complete Blood Count AUTO DIFF Stat Comprehensive Metabolic Panel Stat Vital Signs Vital signs: Vital Signs - 8 hr 03/15/24 08:05 03/15/24 08:14 03/15/24 08:15 Temperature 98.4 F Pulse Rate 74 76 Respiratory Rate 18 Blood Pressure 135/64 134/63 Pulse Oximetry 95 94 Oxygen Delivery Method Room Air 03/15/24 08:15 03/15/24 08:29 03/15/24 08:29 Temperature Pulse Rate 74 84 Respiratory Rate Blood Pressure 152/66 H Pulse Oximetry 95 96 Oxygen Delivery Method 03/15/24 08:30 03/15/24 08:30 Temperature Pulse Rate 78 Respiratory Rate Blood Pressure 159/67 H Pulse Oximetry 97 Oxygen Delivery Method MDM - URI/Sore Throat Lab Data 03/15/24 08:40 03/15/24 08:40 Labs: Lab Results 03/15/24 03/15/24 Range/Units 08:10 08:40 WBC 7.7 (4.5-11.0) X10^3/uL RBC 3.50 L (4.0-5.2) X10^6/uL Hgb 11.2 L (12.0-16.0) g/dL Hct 34.1 L (36-46) % MCV 97.5 (80-100) fL MCH 31.9 (26-34) PG MCHC 32.8 (30-36) % RDW 16.7 H (11.6-14.8) % Plt Count 391 (150-400) X10^3/uL Neut % (Auto) 74.9 (50-75) % Lymph % (Auto) 14.1 L (25-40) % [place] % (Auto) 8.7 (3-14) % Eos % (Auto) 1.3 L (2-4) % Baso % (Auto) 1.0 (0-2) % Neut # (Auto) 5800 (0229-7422) /uL Lymph # (Auto) 1100 (3277-7431) /uL [place] # (Auto) 700 (0-900) /uL Eos # (Auto) 100 (0-450) /uL Baso # (Auto) 100 (0-100) /uL Sodium 141 (137-145) mmol/L Potassium 4.3 (3.4-5.1) mmol/L Chloride 102 (98-107) mmol/L Carbon Dioxide 38 H (22-32) mmol/L BUN 43 H (7-17) mg/dL Creatinine 3.34 H (0.52-1.04) mg/dL Estimated GFR 13 L (>60) mL/min BUN/Creatinine Ratio 12.9 (6-22) Glucose 86 (80-110) mg/dL Calcium 8.4 (8.4-10.2) mg/dL Total Bilirubin 0.3 (0.2-1.3) mg/dL AST 55 H (14-36) IU/L ALT 50 H (<35) IU/L Alkaline Phosphatase 116 (38-126) U/L Total Protein 7.1 (6.3-8.2) g/dL Albumin 3.9 (3.5-5.0) g/dL Globulin 3.2 (1.7-4.1) g/dL Albumin/Globulin Ratio 1.2 (1.0-2.8) Chlamy pneumoniae PCR Not detected (Not Detect) Adenovirus (PCR) Not detected (Not Detect) B.parapertussis DNA PCR Not detected (Not Detecte) Coronavirus OC43 (PCR) Not detected (Not Detect) Coronavirus HKU1 (PCR) Not detected (Not Detect) Coronavirus 229E (PCR) Not detected (Not Detect) SARS-CoV-2 (PCR) Not detected (Not Detecte) Coronavirus NL63 (PCR) Not detected (Not Detect) Human Metapneumovir PCR Detected H (Not Detect) Influenza Type A (PCR) Not detected (Not Detect) Influenza Type B (PCR) Not detected (Not Detect) M. pneumoniae (PCR) Not detected (Not Detect) Parainfluenza 1 (PCR) Not detected (Not Detect) Parainfluenza 2 (PCR) Not detected (Not Detect) Parainfluenza 3 (PCR) Not detected (Not Detect) Parainfluenza 4 (PCR) Not detected (Not Detect) RSV (PCR) Not detected (Not Detect) Entero/Rhino (PCR) Not detected (Not Detect) Imaging Data Chest x-ray: Radiologist's Impression: Close Chest X-Ray (Signed) Gerardo Zayas - 03/15/24 Vascular Ultrasound (Signed) Peg Sigala - 03/06/[address] (Signed) Titi Vanegas - 11/25/23 Tibia/Fibula X-Ray (Signed) Titi Vanegas - 11/20/23 Ankle X-Ray (Signed) Titi Vanegas - 11/20/23 Bone Densitometry (Signed) Hector Carter - 11/20/23 DI Result CC 03/20/23 DEXA Result 08/30/22 Bone Densitometry (Signed) Ismael Butcher - 08/30/22 Tibia/Fibula X-Ray (Signed) Clifford Bautista - 07/30/22 Knee X-Ray (Signed) Clifford Bautista - 07/30/22 Foot X-Ray (Signed) Clifford Bautista - 07/30/22 Ankle X-Ray (Signed) Clifford Bautista - 07/30/22 Vascular Ultrasound (Signed) Sal Basurto - 07/26/22 Foot X-Ray (Signed) Fuentes Garcia - 06/05/22 Knee X-Ray (Signed) Gustavo Villasenor - 06/05/22 Abdomen/Pelvis CT (Signed) Gerardo Zayas - 02/14/20 Wrist X-Ray (Signed) Jabari Jara - 12/23/19 Hand X-Ray (Signed) Gerardo Zayas - 12/23/19 Abdomen/Pelvis CT (Signed) Abebe Messina - 05/26/19 Chest/Abdomen X-ray (Signed) Gina Sapp - 05/26/19 Abdomen/Pelvis CT (Signed) Yane Ayala - 01/17/19 Abdomen X-Ray (Signed) Yane Ayala - 01/17/19 Chest/Abdomen X-ray (Signed) Peg Sigala - 09/25/18 Oncology Outside DI 07/28/18 Abdomen/Pelvis CT (Signed) Sal Basurto - 07/26/18 Bone Osseous Survey (Signed) Rashel Morocho - 06/11/18 Ankle MRI (Signed) Abebe Messina - 05/13/18 Ankle MRI (Signed) Giovanny Nunez - 05/13/[address] [address] XRay Report Signed Patient: Kristine Damon MR#: [id number] : 1940 Acct:[id number] Age/Sex: 83 / F Date of Service: 03/15/24 Loc: ED Accession Number: [id number] Procedure: XR chest 2V Ordering Provider: Marce Post D.O. PROCEDURE: XR CHEST 2V INDICATIONS: URI symptoms TECHNIQUE: 2 views of the chest were acquired. COMPARISON: [facility], CR, XR CHEST 2 VIEWS, 01/25/2019, 11:54. [facility], CR, XR CHEST 1 VIEW, 01/26/2019, 10:45. [facility], CR, XR CHEST 1 VIEW, 06/18/2023, 12:05. [facility], CR, CHEST 2 VIEW, 01/17/2017, 8:56. FINDINGS: Surgical changes and devices: Left upper quadrant clips are seen. There is a left subclavian stent. Lungs and pleura: Poorly defined opacities can be seen at both lung bases. Generalized interstitial prominence can be seen more superiorly. No pleural effusions or pneumothorax. Mediastinum: The cardiac contours are within normal limits. The aorta demonstrates calcification and tortuosity. Bones and chest wall: No suspicious bony abnormalities. Age-appropriate bony degenerative changes are seen. Accentuated thoracic kyphosis is seen. S shaped scoliotic curvature is seen. Soft tissues appear unremarkable. IMPRESSION: Poorly defined opacities can be seen at the lung bases. Atelectasis is suspected, infection is possible. Generalized interstitial prominence can be seen more superiorly within the lungs. Viral infiltrate is suspected, although differential diagnosis includes pulmonary edema. Postoperative and degenerative changes are seen. Dictated by: Gerardo Zayas M.D. on 03/15/2024 at 8:08 Approved by: Gerardo Zayas M.D. on 03/15/2024 at 8:11 [facility] Narrative Medical decision making narrative: 83-year-old female with clinical exam consistent with a upper respiratory infection but patient did miss her dialysis yesterday. Patient is overall well-appearing, occasionally slightly hypertensive but vitals are otherwise appropriate. She does not appear to be fluid overloaded at this time. But felt appropriate to obtain labs. Labs white count 7.7 hemoglobin 11.2 improved from priors in November 2023 platelets are 391. Patient has a little lymphocytes. Electrolytes shows sodium of 141 potassium of 4 3 chloride of 102, CO2 38 BUN 43 with creatinine of 3.34, calcium is 8.4 with AST ALT of 55 and 50. Chest x-ray poorly defined opacities of the lung bases atelectasis suspected infections possible generalized interstitial prominence can be superiorly within the lungs viral infiltrate suspected although differential includes pulmonary edema. Postoperative degenerative changes are seen. Respiratory panel is positive for human metapneumovirus. Suspect patient viral respiratory infection. Lungs were clear on examination with no crackles wheezes rhonchi. Has a little bit of a dry cough. We will hold off on antibiotics continue with symptomatic treatment. Patient feels very comfortable this plan she has Flonase at home that she uses intermittently. Well-appearing with no distress she notes that she is Saturday only dialysis and plans to attend on Saturday. We did discuss return precautions all questions answered. Patient ambulated from the department without issue. Discharge Plan Departure Patient Disposition: Home Clinical Impression: Infection due to human metapneumovirus (hMPV) Activity Restrictions/Additional Instructions: Your respiratory panel shows human metapneumovirus, this is a viral infection typically take 7-10 days to clear. Please make sure to attend your dialysis on Saturday. Your labs were overall appropriate and your potassium was 4.3 today. Please return or go to the closest ER for increasing shortness of breath, lightheadedness or passing out, new chest pain, vomiting, new swelling of your extremities or other new or concerning changes. Prescriptions: No Action tetrahydrozoline [Visine] 15 ML drops 1 gtt OP PRN PRN (Reason: Dry Eyes) Qty: 0 magnesium hydroxide [Milk Of Magnesia Concentrated] 2,400 MG/10 ML suspension 30 ml PO DAILY PRN (Reason: Constipation) Qty: 0 citalopram 20 mg tablet 60 mg PO DAILY Qty: 270 3RF Patient Comments: Takes 20 mg. tabs X 3 furosemide [Lasix] 40 mg tablet 40 mg PO TID Qty: 180 1RF Patient Comments: Pt. states takes tabs X 3 together daily on non-dialysis days only. diazepam [Valium] 10 mg tablet 30 mg PO BEDTIME Qty: 90 0RF oxycodone-acetaminophen [Percocet] 5-325 mg tablet 1 tab PO BID PRN (Reason: pain) Qty: 60 0RF oxycodone-acetaminophen [Percocet] 5-325 mg tablet 1 tab PO BID PRN (Reason: pain) Qty: 60 0RF oxycodone-acetaminophen [Percocet] 5-325 mg tablet 1 tab PO BID PRN (Reason: pain) Qty: 60 0RF zinc 50 mg tablet 50 mg PO DAILY diphenhydramine HCl [Benadryl] 25 mg Capsule 25 mg PO Q4-6H PRN (Reason: Allergic Symptoms) Patient Comments: Takes on dialysis days Probiotic 10 billion cell Capsule 1 cap PO DAILY multivitamin [Daily-Julee] Tablet 1 tab PO DAILY omega 7-lib-wmq-fish oil [Fish Oil] 1,000 mg (120 mg-180 mg) Capsule 4,000 mg PO DAILY Adult Low Dose Aspirin 81 mg tablet 1 tab PO DAILY Referrals: Rashel Ríos MD [Primary Care Provider] - Stand Alone Forms: Patient Portal/API
[2024-03-15 08:29] VITALS: BP 152/66; PULSE 84; O2SAT 96
[2024-03-15 08:30] VITALS: BP 159/67; PULSE 78; O2SAT 97
[2024-03-15 08:49] LABS: Add Manual Diff / Slide Review NO; Basophils Absolute Auto 100 /uL (0-100); Eosinophils Absolute Auto 100 /uL (0-450); Eosinophils Percent Auto 1.3 % (2-4); Hematocrit 34.1 % (36-46); Hemoglobin 11.2 g/dL (12.0-16.0); Lymphocytes Absolute Auto 1100 /uL (1100-4500); Lymphocytes Percent Auto 14.1 % (25-40); Mean Corpuscular HGB Conc 32.8 % (30-36); Mean Corpuscular Hemoglobin 31.9 PG (26-34); Mean Corpuscular Volume 97.5 fL (80-100); Monocytes Absolute Auto 700 /uL (0-900); Monocytes Percent Auto 8.7 % (3-14); Neutrophils Absolute Auto 5800 /uL (1500-7000); Neutrophils Percent Auto 74.9 % (50-75); Platelet Count 391 X10^3/uL (150-400); Red Cell Distribution Width 16.7 % (11.6-14.8); White Blood Cell Count 7.7 X10^3/uL (4.5-11.0)
[2024-03-15 09:00] LABS: Alanine Aminotransferase 50 IU/L (<35); Albumin 3.9 g/dL (3.5-5.0); Albumin Globulin Ratio 1.2 (1.0-2.8); Alkaline Phosphatase 116 U/L (38-126); Aspartate Aminotransferase 55 IU/L (14-36); BUN Creatinine Ratio 12.9 (6-22); Bilirubin Total 0.3 mg/dL (0.2-1.3); Blood Urea Nitrogen 43 mg/dL (7-17); Calcium 8.4 mg/dL (8.4-10.2); Carbon Dioxide 38 mmol/L (22-32); Chloride 102 mmol/L (98-107); Estimated Glomerular Filt Rate 13 mL/min (>60); Globulin 3.2 g/dL (1.7-4.1); Glucose 86 mg/dL (80-110); HEMOLYSIS < 15 (0-50); Potassium 4.3 mmol/L (3.4-5.1); Sodium 141 mmol/L (137-145); Total Protein 7.1 g/dL (6.3-8.2)
[2024-03-15 09:11] LABS: Adenovirus Not Detected (Not Detect); B. parapertussis Not Detected (Not Detecte); Bordetella pertussis Not Detected (Not Detect); Chlamydophila pneumoniae Not Detected (Not Detect); Coronavirus 229E Not Detected (Not Detect); Coronavirus HKU1 Not Detected (Not Detect); Coronavirus NL 63 Not Detected (Not Detect); Coronavirus OC43 Not Detected (Not Detect); Human Metapneumovirus Detected (Not Detect); Human Rhinovirus/Enterovirus Not Detected (Not Detect); Influenza A Not Detected (Not Detect); Influenza B Not Detected (Not Detect); Mycoplasma pneumoniae Not Detected (Not Detect); Parainfluenza Virus 1 Not Detected (Not Detect); Parainfluenza Virus 2 Not Detected (Not Detect); Parainfluenza Virus 3 Not Detected (Not Detect); Parainfluenza Virus 4 Not Detected (Not Detect); Respiratory Syncytial Virus Not Detected (Not Detect); SARS- CoV-2 Not Detected (Not Detecte)
[2024-03-15 09:29] VITALS: BP 148/68; PULSE 78; RESP 20; TEMP 36.6; O2SAT 98
== END 2024-03-15 09:30 | disposition home or self-care (01) ==
PROVIDERS: Emergency Provider Emergency Medicine; PCP Family Medicine
DX: J98.8 Other specified respiratory disorders (principal); B97.81 Human metapneumovirus as the cause of diseases classified elsewhere; F17.200 Nicotine dependence, unspecified, uncomplicated
CPT/HCPCS: 36415; 71046; 80053; 85025; 87633; 99281; 99284

== ENCOUNTER → 2024-06-01 08:36 | Outpatient (CLI) | payer MEDICARE, SELFPAY ==
[2023-11-25 01:06] VITALS: BMI 18.5
--- NOTE | 2024-06-01 08:39 | DI.RAD.S_ITS ---
PROCEDURE: XR KNEE RT 3V INDICATIONS: KNEE PAIN TECHNIQUE: 3 views of the knee were acquired. COMPARISON: [facility], CR, XR KNEE RT 3V, 07/30/2022, 8:47. FINDINGS: Bones: No fractures or dislocations. No suspicious bony lesions. 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 Small periarticular osteophytes are present. No erosions. Overall appearance is relatively stable compared to 2021. Soft tissues: No joint effusion. No suspicious soft tissue calcifications. 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 Dictated by: Peg Sigala M.D. on 06/01/2024 at 22:59 Approved by: Peg Sigala M.D. on 06/01/2024 at 23:00
--- NOTE | 2024-06-01 08:39 | DI.RAD.S_ITS ---
PROCEDURE: XR CERVICAL SPINE 2V OR 3V INDICATIONS: BACK PAIN TECHNIQUE: 3 view(s) of the cervical spine were acquired. COMPARISON: None. FINDINGS: Bones: No fractures or dislocations to the T1 level. The lateral masses of C1 appear intact on the odontoid view. No suspicious bony lesions. Multilevel moderate to severe degenerative disc space narrowing most significant at C5-6 and C6-7. There is trace anterior listhesis C4 on C5. Multilevel uncovertebral arthropathy. Soft tissues: No prevertebral soft tissue swelling. IMPRESSION: Multilevel degenerative changes most severe at C5-6 and C6-7. Dictated by: Peg Sigala M.D. on 06/01/2024 at 23:00 Approved by: Peg Sigala M.D. on 06/01/2024 at 23:00
--- NOTE | 2024-06-01 08:41 | DI.RAD.S_ITS ---
PROCEDURE: XR LUMBAR SPINE 2-3V INDICATIONS: BACK PAIN TECHNIQUE: 3 views of the lumbar spine were acquired. COMPARISON: [facility], CR, XR LUMBAR SPINE 2 OR 3 VIEWS, 06/18/2023, 12:05. FINDINGS: Bones: 5 [id number] vertebrae are present. There is significant S shaped scoliotic curvature within the lumbar spine. Multilevel moderate to severe degenerative disc foraminal narrowing are present. Overall appearance is relatively stable. No vertebral body compression fractures. No suspicious bony lesions. Soft tissues: Overlying bowel gas pattern is normal. No suspicious soft tissue calcifications. IMPRESSION: Stable appearance of S shaped scoliotic curvature with multilevel disc and foraminal narrowing. Dictated by: Peg Sigala M.D. on 06/01/2024 at 23:00 Approved by: Peg Sigala M.D. on 06/01/2024 at 23:01
== END ==
PROVIDERS: PCP Family Medicine; Referring Provider Chiropractor; Visit Provider Chiropractor
DX: M48.061 Spinal stenosis, lumbar region without neurogenic claudication (principal); M47.812 Spondylosis without myelopathy or radiculopathy, cervical region; M54.2 Cervicalgia; M41.9 Scoliosis, unspecified; M54.50 Low back pain, unspecified; M25.561 Pain in right knee
CPT/HCPCS: 72040; 72100; 73562

== ENCOUNTER → 2024-07-30 07:22 | Outpatient (CLI) | payer MEDICARE, SELFPAY ==
[2023-11-25 01:06] VITALS: BMI 18.5
[2024-07-30 09:19] LABS: Microalbumin Urine Random 1.6 mg/dL (0-1.6)
[2024-07-30 09:22] LABS: Add Manual Diff / Slide Review NO; Basophils Absolute Auto 100 /uL (0-100); Eosinophils Absolute Auto 600 /uL (0-450); Eosinophils Percent Auto 6.5 % (2-4); Hematocrit 38.6 % (36-46); Hemoglobin 12.8 g/dL (12.0-16.0); Lymphocytes Absolute Auto 1000 /uL (1100-4500); Lymphocytes Percent Auto 11.4 % (25-40); Mean Corpuscular HGB Conc 33.1 % (30-36); Mean Corpuscular Hemoglobin 33.5 PG (26-34); Monocytes Absolute Auto 700 /uL (0-900); Monocytes Percent Auto 7.5 % (3-14); Neutrophils Absolute Auto 6700 /uL (1500-7000); Neutrophils Percent Auto 73.6 % (50-75); Platelet Count 303 X10^3/uL (150-400); Red Blood Cell Count 3.82 X10^6/uL (4.0-5.2); Red Cell Distribution Width 14.8 % (11.6-14.8)
[2024-07-30 10:35] LABS: Alanine Aminotransferase 49 IU/L (<35); Albumin 4.1 g/dL (3.5-5.0); Albumin Globulin Ratio 1.1 (1.0-2.8); Alkaline Phosphatase 135 U/L (38-126); Aspartate Aminotransferase 43 IU/L (14-36); Bilirubin Total 0.3 mg/dL (0.2-1.3); Blood Urea Nitrogen 56 mg/dL (7-17); Calcium 9.6 mg/dL (8.4-10.2); Carbon Dioxide 34 mmol/L (22-32); Chloride 98 mmol/L (98-107); Cholesterol 210 mg/dL (140-199); Estimated Glomerular Filt Rate 12 mL/min (>60); Globulin 3.8 g/dL (1.7-4.1); Glucose 90 mg/dL (80-110); HDL Cholesterol 48 mg/dL (40-60); HEMOLYSIS < 15 (0-50); LDL Cholesterol Calculated 121 mg/dL (<100); Sodium 137 mmol/L (137-145); Total Protein 7.9 g/dL (6.3-8.2); Triglycerides 205 mg/dL (35-150)
[2024-07-30 11:02] LABS: TSH w/ Reflex to FT4 1.27 uIU/mL (0.47-4.68)
[2024-07-31 03:36] LABS: Apolipoprotein B 105 mg/dL (<90)
== END ==
PROVIDERS: PCP Family Medicine; Referring Provider Family Medicine; Visit Provider Family Medicine
DX: I12.0 Hypertensive chronic kidney disease with stage 5 chronic kidney disease or end stage renal disease (principal); N18.6 End stage renal disease; E78.5 Hyperlipidemia, unspecified; Z99.2 Dependence on renal dialysis; M54.50 Low back pain, unspecified; G89.29 Other chronic pain; R94.5 Abnormal results of liver function studies; G47.01 Insomnia due to medical condition; G89.4 Chronic pain syndrome
CPT/HCPCS: 36415; 80053; 80061; 82043; 82172; 82570; 84443; 85025

== ENCOUNTER → 2025-05-03 08:37 | Outpatient (CLI) | payer MEDICARE, SELFPAY ==
[2023-11-25 01:06] VITALS: BMI 18.5
--- NOTE | 2025-05-03 08:39 | DI.RAD.S_ITS ---
PROCEDURE: XR CERVICAL SPINE 2V OR 3V INDICATIONS: chronic neck pain TECHNIQUE: Four views of the cervical spine were acquired. COMPARISON: [facility], CR, XR CERVICAL SPINE 2V OR 3V, 06/01/2024, 8:43. FINDINGS: Cervical spine curvature and alignment: 2 mm C4 anterior subluxation is likely did C4-5 degenerative facet disease Bones: There are no osseous abnormalities. Disc spaces: Mild C3-4 C4-5 moderate C5-6 C6-7 C7-T1 degenerative disc disease noted. Moderate C2-3 through C7-T1 degenerative facet disease Soft tissues: Scattered calcification in the paralaryngeal region is similar to 2023 study over 1 year ago no change IMPRESSION: Degeneration. Dictated by: Kwabena Arreguin M.D. on 05/04/2025 at 11:12 Approved by: Kwabena Arreguin M.D. on 05/04/2025 at 11:14
== END ==
PROVIDERS: PCP Family Medicine; Referring Provider Family Medicine; Visit Provider Family Medicine
DX: M47.812 Spondylosis without myelopathy or radiculopathy, cervical region (principal); M50.31 Other cervical disc degeneration, high cervical region; M54.50 Low back pain, unspecified; G89.29 Other chronic pain
CPT/HCPCS: 72040

== ENCOUNTER → 2025-10-18 08:53 | Outpatient (CLI) | payer MEDICARE, SELFPAY ==
[2023-11-25 01:06] VITALS: BMI 18.5
--- NOTE | 2025-10-18 08:55 | DI.RAD.S_ITS ---
PROCEDURE: XR HAND LT MIN 3V INDICATIONS: left thumb injury TECHNIQUE: 3 views of the hand(s) acquired. COMPARISON: [facility], CR, XR HAND LT MIN 3V, 12/23/2019, 8:10. [facility], CR, HAND 3V LEFT, 01/19/2018, 15:12. FINDINGS: Bones: No fractures or dislocations. Carpal bones are normally aligned. No suspicious bony lesions. Osteopenia is noted. Nonunited ulnar styloid fracture. Moderate 1st carpometacarpal joint spacing and osteophytes. Additional degenerative changes are present in the 2nd, 3rd, 4th and 5th DIP joints. Multifocal MCP joint arthritis is most severe at the 2nd and 3rd MCP joint. Radiocarpal joint space narrowing. Cystic lucency noted in the scaphoid waist. Soft tissues: Moderate soft tissue swelling. IMPRESSION: Multifocal degenerative disease as described above. Soft tissue swelling. Osteopenia is noted. No acute bony abnormality. If symptoms persist, recommend follow-up radiographs in 10-14 days. Dictated by: Ana Jacob M.D. on 10/18/2025 at 14:27 Approved by: Ana Jacob M.D. on 10/18/2025 at 14:29
== END ==
PROVIDERS: PCP Family Medicine; Referring Provider Family Medicine; Visit Provider Family Medicine
DX: S69.92XA Unspecified injury of left wrist, hand and finger(s), initial encounter (principal); M85.842 Other specified disorders of bone density and structure, left hand; M19.042 Primary osteoarthritis, left hand; M79.89 Other specified soft tissue disorders; X58.XXXA Exposure to other specified factors, initial encounter
CPT/HCPCS: 73130